=== PATIENT | female | born 1945 | race African-American/Black ===

== ENCOUNTER → 2018-04-24 11:38 | Outpatient (CLI) | payer MEDICARE, OTHER, SELFPAY ==
--- NOTE | 2018-04-24 11:41 | BI_ITS ---
MAMMOGRAPHY - BILATERAL SCREENING REASON FOR EXAM: Female, 72 years old. Routine annual screening examination. PERTINENT HISTORY: Aunt with breast cancer. TECHNIQUE: Digital bilateral breast johnathan (3D mammographic acquisition) in the CC and MLO projections. 2-D mediolateral oblique (MLO) and craniocaudad (CC) views of both breasts were obtained. CAD: Full Field Digital Mammography with Computer Added Detection was performed. COMPARISON: Comparison is made with prior study dated February 22, 2017. FINDINGS: Breast Composition: The breasts are heterogeneously dense, which may obscure small masses. There are no dominant masses or suspicious calcifications. No other significant abnormalities are identified. There has been no significant change since the prior study. BI/SCREENING MAMM (CAD), BILAT IMPRESSION: Stable bilateral screening mammogram. Yearly follow-up mammogram recommended. (A) ASSESSMENT CATEGORY: BIRADS Category 1: Negative. A letter regarding these results will be sent to the patient by the facility within 30 days. Approximately 10% of breast cancers are not detected by mammography. A normal mammogram should not delay biopsy of a clinically suspicious abnormality. [id number] Electronically Signed: Emory Sheppard MD at 11:19 EDT Tel [phone], Service support ,
== END ==
PROVIDERS: Family Provider Nurse Practitioner; PCP Nurse Practitioner; Visit Provider Nurse Practitioner
DX: Z12.31 Encounter for screening mammogram for malignant neoplasm of breast (principal)
CPT/HCPCS: 77063; 77067

== ENCOUNTER → 2018-07-10 13:57 | Outpatient (CLI) | payer MEDICARE, OTHER, SELFPAY ==
[2018-06-29 08:29] VITALS: BMI 27.3
== END ==
PROVIDERS: Family Provider Nurse Practitioner; PCP Nurse Practitioner; Referring Provider Nurse Practitioner; Visit Provider Nurse Practitioner
DX: R00.1 Bradycardia, unspecified (principal)
CPT/HCPCS: 93225; 93226

== ENCOUNTER → 2018-09-05 06:58 | Outpatient (CLI) | payer MEDICARE, OTHER, SELFPAY ==
[2018-08-07 14:42] VITALS: BMI 27.3
--- NOTE | 2018-09-05 07:01 | ECHOD_ITS ---
Reason For Study: CP Procedure This was a 2D Doppler, Color Flow transthoracic echocardiogram. Exam performed in department. Left Ventricle Normal LV size. Mid cavitary false tendon noted. Left ventricular systolic function is normal. The estimated ejection fraction is 60 %. No evidence for diastolic dysfunction. No regional wall motion abnormalities noted. Right Ventricle Normal RV size. Normal systolic function. Atria The left atrium is mildly enlarged. Normal right atrium. Hypermobile atrial septum. Positive agitated saline contrast study for right to left interatrial shunt compatible with a PFO versus ASD. Mitral Valve There is no mitral annular calcification. Normal mitral valve. Trivial mitral valve insufficiency. Tricuspid Valve Normal tricuspid valve. Mild tricuspid valve insufficiency. Right ventricular systolic pressure estimated to be 21 mmHg. Aortic Valve Trisinus/trileaflet aortic valve. Normal aortic valve. Pulmonic Valve The pulmonic valve is not well visualized. Trivial pulmonic valve insufficiency. Great Vessels Normal sized aortic root. Pericardium/Pleural No pericardial effusion. Medication Performed a rapid injection of agitated mix of 9 cc saline and 1cc air to assess for atrial septal defect. MMode/2D Measurements & Calculations LVIDd: 4.4 cm IVSd: 1.3 cm Ao root diam: 3.3 cm LVIDs: 2.5 cm LVPWd: 1.1 cm LA dimension: 3.3 cm FS: 42.5 % LAV(MOD-bp): 65.4 ml LA A4 area: 22.2 cm2 LAV(MOD-bp) Indexed: 33.4 ml/m2 LAV(MOD-sp2): 52.0 ml LAV(MOD-sp4): 66.8 ml Time Measurements MV dec time: 0.34 sec Doppler Measurements & Calculations MV E max diogo: 59.9 cm/sec Lat Peak E' Diogo: 6.7 cm/sec Med Peak E' Diogo: 6.6 cm/sec MV A max diogo: 93.8 cm/sec E/E' lat: 8.9 E/E' med: 9.1 MV E/A: 0.64 MV V2 max: 123.3 cm/sec MV P1/2t max diogo: 65.5 cm/sec Ao V2 max: 113.1 cm/sec MV max P.1 mmHg MV P1/2t: 136.3 msec Ao max P.1 mmHg MV V2 mean: 50.5 cm/sec MV dec slope: 140.7 cm/sec2 MV mean P.2 mmHg MV V2 VTI: 31.9 cm MVA(P1/2t): 1.6 cm2 LV V1 max: 112.4 cm/sec PA V2 max: 89.6 cm/sec TR max diogo: 211.6 cm/sec LV V1 max P.1 mmHg TR max P.9 mmHg Interpretation Summary Left ventricular systolic function is normal. The estimated ejection fraction is 60 %. Mid cavitary false tendon noted. The left atrium is mildly enlarged. Trivial mitral valve insufficiency. Mild tricuspid valve insufficiency. Trivial pulmonic valve insufficiency. Right ventricular systolic pressure estimated to be 21 mmHg. No evidence for diastolic dysfunction. Hypermobile atrial septum. Positive agitated saline contrast study for right to left interatrial shunt compatible with a PFO versus ASD. Ordering Physician: Emanuel Ruffin Referring Physician: Emanuel Ruffin Performed By: Viral Orellana RCS
--- NOTE | 2018-09-05 19:05 | STRESSREP_ITS ---
Stress Test Report Date: 09-05-2018 Procedure: Exercise tolerance test/imaging study Indications: Chest pain; shortness of breath/dyspnea Consent: Per the patient Procedure: The patient exercised on a Jameson protocol for 9 minutes completing Stage III achieving a peak heart rate of 146 bpm (99 % predicted maximal heart rate) with a peak blood pressure 170/64 mmHg and a peak MET capacity of 10 METs. The baseline ECG demonstrated Sinus bradycardia. The peak exercise ECG demonstrated no obvious ECG changes . There was a rare PVC during exercise . The functional capacity was considered good . There was no complaint of chest discomfort during exercise or recovery. The examination was discontinued secondary to dyspnea . Impression: 1. Technically adequate (percent predicted maximal heart rate greater than 85%) exercise tolerance test 2. Peak exercise ECG with no obvious ECG changes 3. There was a rare PVC during exercise 4. Nuclear images pending Myocardial perfusion imaging study: Technique: The patient was injected with 11 mCi of technetium 99m Cardiolite and subsequently rest SPECT Cardiolite nuclear imaging was obtained in the horizontal long, vertical long, and short axis views. The patient exercised on a Jameson protocol for 9 minutes completing Stage III achieving a peak heart rate of 146 bpm (99 % predicted maximal heart rate) with a peak blood pressure 170/64 mmHg and a peak MET capacity of 10 METs. The patient was injected with 31.9 mCi of technetium 99m Cardiolite and subsequently stress SPECT Cardiolite nuclear imaging was obtained in the horizontal long, vertical long, and short axis views. A gated Cardiolite study at peak stress was obtained. Interpretation: Rest and stress SPECT Cardiolite nuclear imaging status post realignment, normalization, and attenuation correction, demonstrates the appearance of relative uniform tracer uptake and myocardial perfusion appearing within normal limits. There is end systolic thickening and brightening. The gated Cardiolite study demonstrates myocardial thickening and inward wall motion. The reported LVEF is 76 %. Impression: 1. Rest and stress SPECT Cardiolite nuclear imaging demonstrate relative uniform tracer uptake and myocardial perfusion appearing within normal limits. 2. The gated Cardiolite study reports an LVEF of 76 %. This note was generated with [email or web address] software. It may contain incorrect words, spelling, and punctuation that were not noted in checking the note before signing.
== END ==
PROVIDERS: Family Provider Nurse Practitioner; PCP Nurse Practitioner; Referring Provider Internal Medicine Cardiovascular Disease; Visit Provider Internal Medicine Cardiovascular Disease
DX: Q21.1 Atrial septal defect (principal); R07.9 Chest pain, unspecified; R06.02 Shortness of breath; R00.1 Bradycardia, unspecified; I10 Essential (primary) hypertension
CPT/HCPCS: 78452; 93017; 93306; A9500; A4216

== ENCOUNTER → 2018-09-12 12:22 | Outpatient (CLI) | payer MEDICARE, OTHER, SELFPAY ==
[2018-08-07 14:42] VITALS: BMI 27.3
[2018-09-12 12:34] LABS: Absolute Lymphocyte Count 0.77 X10^3/ul (0.83-4.51); Absolute Neutrophil Count 1.5 X10^3/uL (2.0-7.7); Basophil# 0.01 X10^3/uL; Basophil% 0.4 % (0-1); Eosinophil# 0.01 X10^3/uL; Eosinophils% 0.4 % (0-5); Hematocrit 39.3 % (37-47); Lymphocyte # 0.77 X10^3/ul (4.0); Lymphocyte % 28.6 % (19-41); Mean Corp Hgb Conc 33.1 g/gl (32-36); Mean Corpuscular Volume 90.8 fL (81-99); Mean Platelet Vol. 11.6 fl (6.2-12.0); Monocyte% 14.9 % (0-10); Neutrophil % 55.7 % (47-70); Platelet Count 131 K/mm3 (150-450); RBC Distribution Width CV 12.5 % (11.6-14.6); RBC Distribution Width SD 41.4 fl (35.1-43.9); Red Blood Count 4.33 M/mm3 (4.2-5.4); White Blood Count 2.7 K/mm3 (4.4-11.0)
[2018-09-12 12:37] LABS: POSITIVE COUNT NO; POSITIVE DIFFERENTIAL NO; POSITIVE MORPHOLOGY NO
[2018-09-12 12:51] LABS: ALB/GLOB Ratio 1.1 RATIO (0.9-2.4); AST(SGOT) 25 U/L (15-37); Alanine Aminotransfer ALT/SGPT 23 U/L (13-56); Albumin, Serum 3.9 g/dL (3.2-5.0); Alkaline Phosphatase 83 U/L (45-117); Anion Gap 7 (5-15); BUN 20 mg/dL (7-18); BUN/Creat Ratio 18.9 RATIO (10-20); Calcium,Total 8.7 mg/dL (8.5-10.1); Chloride 104 mmol/L (98-107); Creatinine, Serum 1.06 mg/dL (0.55-1.02); EST Glomerular Filtration Rate 54 mL/min (>60); Est Glom Filt Rate - Afr Amer 65 mL/min (>60); Globulin 3.7 g/dL (2.2-4.2); Glucose 88 mg/dL (74-106); Potassium 4.2 mmol/L (3.5-5.1); Protein, Total 7.6 g/dL (6.4-8.2); Sodium Level 137 mmol/L (136-145)
== END ==
PROVIDERS: Family Provider Nurse Practitioner; PCP Nurse Practitioner; Referring Provider Nurse Practitioner; Visit Provider Nurse Practitioner
DX: R55 Syncope and collapse (principal)
CPT/HCPCS: 80053; 85025

== ENCOUNTER → 2019-04-30 10:25 | Outpatient (CLI) | payer MEDICARE, OTHER, SELFPAY ==
[2019-02-04 13:08] VITALS: BMI 27.2
--- NOTE | 2019-04-30 10:29 | BI_ITS ---
MAMMOGRAPHY - BILATERAL SCREENING REASON FOR EXAM: Female, 73 years old. Routine annual screening examination. PERTINENT HISTORY: Aunt with breast cancer. TECHNIQUE: Digital bilateral breast mich (3D mammographic acquisition) in the CC and MLO projections. 2-D mediolateral oblique (MLO) and craniocaudad (CC) views of both breasts were obtained. CAD: Full Field Digital Mammography with Computer Added Detection was performed. COMPARISON: Comparison is made with prior examination dated April 24, 2018 and February 22, 2017. FINDINGS: Breast Composition: The breasts are heterogeneously dense, which may obscure small masses. There are no dominant masses or suspicious calcifications. Stable benign-appearing bilateral axillary lymph nodes. No other significant abnormalities are identified. There has been no significant change since the prior study. BI/SCREEN MAMM (CAD) W/MICH BILAT IMPRESSION: Stable bilateral screening mammogram. Yearly follow-up mammogram recommended. (A) ASSESSMENT CATEGORY: BIRADS Category 2: Benign. A letter regarding these results will be sent to the patient by the facility within 30 days. Approximately 10% of breast cancers are not detected by mammography. A normal mammogram should not delay biopsy of a clinically suspicious abnormality. [id number] Electronically Signed: Emory Sheppard, at 12:39 EDT , Service support ,
== END ==
PROVIDERS: Family Provider Nurse Practitioner; PCP Nurse Practitioner; Referring Provider Nurse Practitioner; Visit Provider Nurse Practitioner
DX: Z12.31 Encounter for screening mammogram for malignant neoplasm of breast (principal)
CPT/HCPCS: 77063; 77067

== ENCOUNTER → 2019-06-08 15:53 | Outpatient (CLI) | payer MEDICARE, OTHER, SELFPAY ==
[2019-06-06 09:22] VITALS: BMI 27.2
--- NOTE | 2019-06-08 15:56 | RAD_ITS ---
STUDY: X-RAY CHEST REASON FOR EXAM: Female, 73 years old. TECHNIQUE: 3 views COMPARISON: None. FINDINGS: The lungs are clear and expanded. There is no demonstrated pleural abnormality. Normal size heart. Normal mediastinum and anika. Normal visualized pulmonary arteries. Normal visualized aortic arch and descending thoracic aorta. Hypertrophic degenerative changes are seen in the dorsal spine.. Normal visualized ribs, clavicles, and shoulders. There is no demonstrated abnormality of the visualized soft tissue structures of the upper abdomen. RAD/Chest PA and Lateral IMPRESSION: No active intrathoracic disease noted Electronically Signed: Tasha Ferreira, at 16:17 EST Tel , Service support ,
== END ==
PROVIDERS: Family Provider Nurse Practitioner; PCP Nurse Practitioner; Referring Provider Nurse Practitioner; Visit Provider Nurse Practitioner
DX: J45.909 Unspecified asthma, uncomplicated (principal)
CPT/HCPCS: 71046

== ENCOUNTER → 2019-08-18 14:37 | Outpatient (CLI) | payer MEDICARE, OTHER, SELFPAY ==
[2019-06-06 09:22] VITALS: BMI 27.2
--- NOTE | 2019-08-18 14:47 | RAD_ITS ---
STUDY: X-RAY - ABDOMEN/PELVIS REASON FOR EXAM: Female, 73 years old. EPIGASTRIC PAIN TECHNIQUE: Two AP supine views of the abdomen and pelvis. COMPARISON: June 08, 2019 FINDINGS: Lung bases are mostly out of the [id number]. Is partially visualized on the prior study there are gas-filled loops of bowel in the left upper quadrant which may represent gaseous splenic flexure. There is moderate stool within the colon. There is no demonstrated free abdominal air. The visualized liver, spleen and kidneys are grossly normal in size and morphology. The calcific densities in the pelvis suggesting calcified fibroids. There is a sclerotic appearance of the symphysis pubis. There is degenerative change of the SI joints. There is left greater than right degenerative change of the hip joints. RAD/Abdomen Single View IMPRESSION: Nonspecific gassy appearance of the splenic flexure mild constipation. Calcified fibroids in the uterus suspected. Degenerative change in the thoracolumbar spine and both hip joints and symphysis pubis. Electronically Signed: Nancy Méndez MD at 16:05 EST Tel , Service support ,
== END ==
PROVIDERS: PCP Nurse Practitioner; Referring Provider Nurse Practitioner; Visit Provider Nurse Practitioner
DX: R10.13 Epigastric pain (principal)
CPT/HCPCS: 74018

== ENCOUNTER → 2020-05-11 14:44 | Outpatient (CLI) | payer MEDICARE, OTHER, SELFPAY ==
[2019-06-06 09:22] VITALS: BMI 27.2
--- NOTE | 2020-05-11 14:47 | BI_ITS ---
MAMMOGRAPHY - BILATERAL SCREENING REASON FOR EXAM: Female, 74 years old. Routine annual screening examination. PERTINENT HISTORY: Aunt with breast cancer. TECHNIQUE: Digital bilateral breast mich (3D mammographic acquisition) in the CC and MLO projections. 2-D mediolateral oblique (MLO) and craniocaudad (CC) views of both breasts were obtained. CAD: Full Field Digital Mammography with Computer Added Detection was performed. COMPARISON: Comparison is made with prior study dated 04/30/2019 and 04/24/2018. FINDINGS: Breast Composition: The breasts are heterogeneously dense, which may obscure small masses. There are no dominant masses or suspicious calcifications. No other significant abnormalities are identified. There has been no significant change since the prior study. BI/SCREEN MAMM (CAD) W/MICH BILAT IMPRESSION: Stable bilateral screening mammogram. Yearly follow-up mammogram recommended. (A) ASSESSMENT CATEGORY: BIRADS Category 1: Negative. A letter regarding these results will be sent to the patient by the facility within 30 days. Approximately 10% of breast cancers are not detected by mammography. A normal mammogram should not delay biopsy of a clinically suspicious abnormality. [id number] Electronically Signed: Emory Sheppard, at 10:12 EDT , Service support ,
== END ==
PROVIDERS: PCP Nurse Practitioner; Referring Provider Nurse Practitioner; Visit Provider Nurse Practitioner
DX: Z12.31 Encounter for screening mammogram for malignant neoplasm of breast (principal)
CPT/HCPCS: 77063; 77067

== ENCOUNTER 2020-09-22 09:33 | Outpatient (RCR) | payer MEDICARE, OTHER, SELFPAY ==
[2019-06-06 09:22] VITALS: BMI 27.2
[2020-09-22] MEDS: COVID-19 VACC, MRNA(PFIZER)/PF 30 MCG/0.3 ML SYRINGE IM (13:12)
[2020-10-13] MEDS: COVID-19 VACC, MRNA(PFIZER)/PF 30 MCG/0.3 ML SYRINGE IM (12:54)
== END 2020-12-20 23:59 ==
LOC: IMMUN 09:33
PROVIDERS: PCP Nurse Practitioner; Visit Provider Family Medicine
DX: Z23 Encounter for immunization (principal)
CPT/HCPCS: 0001A; 0002A; 91300

== ENCOUNTER → 2021-05-16 12:49 | Outpatient (CLI) | payer MEDICARE, OTHER, SELFPAY ==
--- NOTE | 2021-05-16 12:54 | BI_ITS ---
MAMMOGRAPHY - BILATERAL SCREENING REASON FOR EXAM: Female, 75 years old. Routine annual screening examination. PERTINENT HISTORY: Aunt with breast cancer. TECHNIQUE: Digital bilateral breast mich (3D mammographic acquisition) in the CC and MLO projections. 2-D mediolateral oblique (MLO) and craniocaudad (CC) views of both breasts were obtained. CAD: Full Field Digital Mammography with Computer Added Detection was performed. COMPARISON: Comparison is made with prior examination 05/11/2020 and 04/30/2019. FINDINGS: Breast Composition: The breasts are heterogeneously dense, which may obscure small masses. There are no dominant masses or suspicious calcifications. Stable small benign appearing bilateral axillary lymph nodes. No other significant abnormalities are identified. There has been no significant change since the prior study. BI/SCRN MAMM (CAD)W/MICH BILAT IMPRESSION: Stable bilateral screening mammogram. Yearly follow-up mammogram recommended. (A) ASSESSMENT CATEGORY: BIRADS Category 2: Benign. A letter regarding these results will be sent to the patient by the facility within 30 days. Approximately 10% of breast cancers are not detected by mammography. A normal mammogram should not delay biopsy of a clinically suspicious abnormality. [id number] Electronically Signed: Emory Sheppard MD at 14:15 EDT , Service support ,
--- NOTE | 2021-05-16 13:17 | BD_ITS ---
STUDY: DUAL ENERGY X-RAY ABSORPTIOMETRY / DXA REASON FOR EXAM: Female, 75 years old. [id number]. The patient is postmenopausal. TECHNIQUE: Bone Mineral Density (BMD) measurements of lumbar spine and bilateral hips were obtained. COMPARISON: Comparison is made with prior study dated 05/23/2017. FINDINGS: Lumbar Spine (L1-L4): g/cm2 (1.021) / T-score (-0.9) / Z-score (1.8) Findings are suggestive of normal bone density with a low fracture risk. Left Femur Total: g/cm2 (0.833) / T-score (-1.3) / Z-score (0.0) Left Femoral Neck: g/cm2 (0.740) / T-score (-1.5) / Z-score (0.1) Right Femur Total: g/cm2 (0.801) / T-score (-1.5) / Z-score (-0.2) Right Femoral Neck: g/cm2 (0.763) / T-score (-1.3) / Z-score (0.3) The T-Scores on the most recent prior examination were: Lumbar Spine (L1-L4): There has been worsening of bone density since the previous examination. Left Femur Total: which represents a worsening of 7.5%. Right Femur Total: which represents a worsening of 2.7%. BD/Dexa Bone Density Study IMPRESSION: The patient is considered osteopenic as outlined below according to World Jt Organization (WHO) criteria with a low fracture risk. There has been worsening of bone density since the previous examination. Reference Information: The T-score is the number of standard deviations above or below the standard which is normal for young adults at their peak bone mineral density. The World Health Organization (WHO) interprets the T-scores as follows: Above -1 Normal bone density Between -1 and -2.5 Osteopenia Equal to / or below -2.5 Osteoporosis As a practical clinical guideline, osteopenia may be graded as follows: Mild -1 through -1.5 Moderate -1.6 through -2.0 Severe -2.1 through -2.4 The Z-score is the number of standard deviations above or below age-matched controls. A Z-score of less than -1.5 would be considered abnormal. References: 1. NIH Osteoporosis and Related Bone Diseases www osteo.org 2. International Society for Clinical Densitometry www iscd.org 3. National Osteoporosis Foundation www nof.org Electronically Signed: Emory Sheppard MD at 12:50 EDT , Service support ,
== END ==
PROVIDERS: PCP Nurse Practitioner; Visit Provider Nurse Practitioner
DX: Z12.31 Encounter for screening mammogram for malignant neoplasm of breast (principal); Z78.0 Asymptomatic menopausal state
CPT/HCPCS: 77063; 77067; 77080

== ENCOUNTER → 2022-05-17 | Outpatient (CLI) | payer MEDICARE, OTHER, SELFPAY ==
--- NOTE | 2022-05-17 09:42 | BI_ITS ---
MAMMOGRAPHY - BILATERAL SCREENING REASON FOR EXAM: Female, 76 years old. Routine annual screening examination. PERTINENT HISTORY: Aunt with breast cancer. History of remote right breast aspirations. TECHNIQUE: Digital bilateral breast mich (3D mammographic acquisition) in the CC and MLO projections. 2-D mediolateral oblique (MLO) and craniocaudad (CC) views of both breasts were obtained. CAD: Full Field Digital Mammography with Computer Added Detection was performed. COMPARISON: Comparison is made with prior examination dated 05/16/2021 and 05/11/2020. FINDINGS: Breast Composition: The breasts are heterogeneously dense, which may obscure small masses. There are no dominant masses or suspicious calcifications. No other significant abnormalities are identified. There has been no significant change since the prior study. BI/SCRN MAMM (CAD)W/MICH BILAT IMPRESSION: Stable bilateral screening mammogram. Yearly follow-up mammogram recommended. (A) ASSESSMENT CATEGORY: BIRADS Category 1: Negative. A letter regarding these results will be sent to the patient by the facility within 30 days. Approximately 10% of breast cancers are not detected by mammography. A normal mammogram should not delay biopsy of a clinically suspicious abnormality. [id number] Electronically Signed: Emory Sheppard MD at 10:16 EDT ,
== END | disposition home or self-care (01) ==
LOC: OPBI 09:41
PROVIDERS: PCP Internal Medicine; Referring Provider Internal Medicine; Visit Provider Internal Medicine
DX: Z12.31 Encounter for screening mammogram for malignant neoplasm of breast (principal)
CPT/HCPCS: 77063; 77067

== ENCOUNTER → 2022-05-22 | Outpatient (CLI) | payer MEDICARE, OTHER, SELFPAY ==
[2022-05-22 12:55] LABS: Anion Gap 6 (5-15); BUN 22 mg/dL (7-18); Calcium,Total 9.4 mg/dL (8.5-10.1); Chloride 104 mmol/L (98-107); EST Glomerular Filtration Rate 57 mL/min (>60); Est Glom Filt Rate - Afr Amer 69 mL/min (>60); Glucose 94 mg/dL (74-106); Potassium 3.8 mmol/L (3.5-5.1); Sodium Level 139 mmol/L (136-145)
== END | disposition home or self-care (01) ==
LOC: BIMLAB 08:11
PROVIDERS: PCP Internal Medicine; Visit Provider Internal Medicine
DX: I10 Essential (primary) hypertension (principal)
CPT/HCPCS: 36415; 80048

== ENCOUNTER → 2022-11-21 | Outpatient (CLI) | payer MEDICARE, OTHER, SELFPAY ==
[2022-11-21 12:20] LABS: Absolute Lymphocyte Count 1.35 X10^3/uL (0.83-4.51); Absolute Neutrophil Count 1.7 X10^3/uL (2.0-7.7); Basophil# 0.05 X10^3/uL; Basophil% 1.3 % (0-1); Eosinophil# 0.37 X10^3/uL; Eosinophils% 9.9 % (0-5); Hematocrit 36.2 % (37-47); Hemoglobin 11.8 g/dL (12.0-15.0); Lymphocyte # 1.35 X10^3/ul (0.83-4.51); Lymphocyte % 36.2 % (19-41); Mean Corp Hgb Conc 32.6 g/dL (32-36); Mean Corpuscular Hgb 30.3 pg (27.0-32.0); Mean Corpuscular Volume 92.8 fL (81-99); Mean Platelet Vol. 10.8 fl (6.2-12.0); Monocyte# 0.29 X10^3/uL; Monocyte% 7.8 % (0-10); NRBC Flagged by Analyzer 0 % (0-5); Neutrophil # 1.66 X10^3/uL (2.7-7.7); Neutrophil % 44.5 % (47-70); Platelet Count 212 K/mm3 (150-450); RBC Distribution Width CV 12.8 % (11.6-14.6); RBC Distribution Width SD 43.4 fl (35.1-43.9); White Blood Count 3.7 K/mm3 (4.4-11.0)
[2022-11-21 12:50] LABS: AST(SGOT) 22 U/L (15-37); Alanine Aminotransfer ALT/SGPT 26 U/L (13-56); Albumin, Serum 3.8 g/dL (3.2-5.0); Alkaline Phosphatase 83 U/L (45-117); Anion Gap 4 (5-15); BUN 24 mg/dL (7-18); BUN/Creat Ratio 24.7 RATIO (10-20); Calcium,Total 9.6 mg/dL (8.5-10.1); Chloride 108 mmol/L (98-107); Creatinine, Serum 0.97 mg/dL (0.55-1.02); EST Glomerular Filtration Rate 59 mL/min (>60); Est Glom Filt Rate - Afr Amer 72 mL/min (>60); Globulin 3.9 g/dL (2.2-4.2); Glucose 96 mg/dL (74-106); Potassium 4.3 mmol/L (3.5-5.1); Protein, Total 7.7 g/dL (6.4-8.2); Sodium Level 141 mmol/L (136-145)
== END | disposition home or self-care (01) ==
LOC: BIMLAB 08:40
PROVIDERS: PCP Internal Medicine; Referring Provider Internal Medicine; Visit Provider Internal Medicine
DX: I10 Essential (primary) hypertension (principal)
CPT/HCPCS: 36415; 80053; 85025

== ENCOUNTER → 2023-05-20 | Outpatient (CLI) | payer MEDICARE, OTHER, SELFPAY ==
--- NOTE | 2023-05-20 12:09 | BI_ITS ---
MAMMOGRAPHY - BILATERAL SCREENING REASON FOR EXAM: Female, 77 years old. Routine annual screening examination. PERTINENT HISTORY: Aunt with breast cancer. TECHNIQUE: Digital bilateral breast mich (3D mammographic acquisition) in the CC and MLO projections. 2-D mediolateral oblique (MLO) and craniocaudad (CC) views of both breasts were obtained. CAD: Full Field Digital Mammography with Computer Added Detection was performed. COMPARISON: Comparison is made with prior study May 17, 2022 and May 16, 2021. FINDINGS: Breast Composition: The breasts are heterogeneously dense, which may obscure small masses. There are no dominant masses or suspicious calcifications. Stable small benign-appearing bilateral axillary lymph nodes. No other significant abnormalities are identified. There has been no significant change since the prior study. BI/SCRN MAMM (CAD)W/MICH BILAT IMPRESSION: Stable bilateral screening mammogram. Yearly follow-up mammogram recommended. (A) ASSESSMENT CATEGORY: BIRADS Category 2: Benign. A letter regarding these results will be sent to the patient by the facility within 30 days. Approximately 10% of breast cancers are not detected by mammography. A normal mammogram should not delay biopsy of a clinically suspicious abnormality. [id number] Electronically Signed: Emory Sheppard MD at 12:56 EST ,
== END | disposition home or self-care (01) ==
LOC: OPBI 12:08
PROVIDERS: PCP Internal Medicine; Referring Provider Internal Medicine; Visit Provider Internal Medicine
DX: Z12.31 Encounter for screening mammogram for malignant neoplasm of breast (principal)
CPT/HCPCS: 77063; 77067

== ENCOUNTER → 2023-08-28 | Outpatient (CLI) | payer MEDICARE, OTHER, SELFPAY ==
[2023-08-28 15:30] LABS: Absolute Lymphocyte Count 1.89 X10^3/uL (0.83-4.51); Absolute Neutrophil Count 2.1 X10^3/uL (2.0-7.7); Basophil# 0.03 X10^3/uL; Basophil% 0.6 % (0-1); Eosinophil# 0.41 X10^3/uL; Eosinophils% 8.8 % (0-5); Hematocrit 36.1 % (37-47); Hemoglobin 11.8 g/dL (12.0-15.0); Lymphocyte # 1.89 X10^3/ul (0.83-4.51); Lymphocyte % 40.6 % (19-41); Mean Corp Hgb Conc 32.7 g/dL (32-36); Mean Corpuscular Hgb 30.1 pg (27.0-32.0); Mean Corpuscular Volume 92.1 fL (81-99); Mean Platelet Vol. 10.4 fl (6.2-12.0); Monocyte# 0.27 X10^3/uL; Monocyte% 5.8 % (0-10); NRBC Flagged by Analyzer 0 % (0-5); Neutrophil # 2.05 X10^3/uL (2.7-7.7); Platelet Count 224 K/mm3 (150-450); RBC Distribution Width CV 12.5 % (11.6-14.6); RBC Distribution Width SD 42.1 fl (35.1-43.9); Red Blood Count 3.92 M/mm3 (4.2-5.4); White Blood Count 4.7 K/mm3 (4.4-11.0)
[2023-08-28 16:32] LABS: Anion Gap 4 (5-15); BUN 22 mg/dL (7-18); BUN/Creat Ratio 21.6 RATIO (10-20); Calcium,Total 9.4 mg/dL (8.5-10.1); Chloride 106 mmol/L (98-107); Cholesterol 202 mg/dL (200); Creatinine, Serum 1.02 mg/dL (0.55-1.02); EST Glomerular Filtration Rate 56 mL/min (>60); Est Glom Filt Rate - Afr Amer 67 mL/min (>60); Glucose 85 mg/dL (74-106); High Density Lipoprotein 93 mg/dL; Potassium 3.8 mmol/L (3.5-5.1); Sodium Level 138 mmol/L (136-145); Triglycerides 52 mg/dL; Very Low Density Lipoprotein 10 mg/dL (5-40)
== END | disposition home or self-care (01) ==
LOC: BIMLAB 14:25
PROVIDERS: PCP Internal Medicine; Referring Provider Internal Medicine; Visit Provider Internal Medicine
DX: I10 Essential (primary) hypertension (principal); K21.9 Gastro-esophageal reflux disease without esophagitis
CPT/HCPCS: 36415; 80048; 80061; 85025

== ENCOUNTER 2024-01-22 12:30 | Outpatient (RCR) | payer MEDICARE, OTHER, SELFPAY ==
--- NOTE | 2023-12-23 16:22 | HP.PTEVAL_ITS ---
Patient's Visit Information Visit Information Visit Information: DAVID HUBBARD is a 78 year old F referred to Physical Therapy by Dr. Avila Bynum MD with a diagnosis of L buttock pain, SI Joint pain, myalgia. Date of Evaluation: 12/23/23 Physical Therapist: HAILEY Bassett Visit Plan Frequency: 2x /Week Duration: 2 Months Plan: 2X/ week for 8 weeks for stretching of the L piriformis, foam rolling stretching, strengthening with HEP HEP: chair piriformis stretch Subjective Subjective: She was able to walk back here today without getting that pull. She gets a pull deep into her L buttock. She has been doing some stretches and they do help. She has a lot of pain at night when she lays on it. She put heat on it today and it did help relax that pain. It has been going on for awhile and now getting worse. She gets some tingling on the R side and bone and bone on the R knee. 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 It hurts more with walking and does not think she can take a step. Sometimes it helps to get off of it. She was on prednisone for 5 days and meloxicam and it knocked the edge off but did not take it away. She did have x-rays and showed arthritis but not sure if it was of her hip or her back. She goes down one step at a time and hurts sometimes. Pain back pain: Pain Intensity (Out of 10): 0 L hip pain: Pain Intensity (Out of 10): 0 Objective Objective: Gait: walks with decrease stride length and slight trunk flexion LE MMT: R hip flex 4-/5 and L 4-/5 R knee ext 4/5 B R knee flex 4/5 B Pt has tight L piriformis and pain with stretching Pt has tight L hip flexor Pt has increase anterior hip pain with tying to lay flat with her L leg Trunk AROM: flex 75, ext 25, SB B 75, ROT B 75 Balance/Special Test Scores Lower Extremity Functional Score: 48 Goals Goal 1:: I HEP Goal 2:: No pain with stretching the L piriformis Goal Time Frame: 4-6 Weeks Goal 3:: No more grabbing pain with ADL's Goal Time Frame: 4-6 Weeks Rehabilitation Potential Rehabilitation Potential: Good Anticipated Interventions Patient/Client Instruction: Educate patient on: Condition and Plan of Care For the Purpose of:: To decrease pain, To increase ROM, To improve nutrient delivery to tissue, To improve muscle performance and motor function, To improve ability to perform ADL's, To improve ability of physical actions for home/community/work/leisure, To improve gait and locomotor functions, To improve health of tissue, To decrease soft tissue restriction, To increase flexibility/ROM and To improve safety with gait Therapeutic Exercise to Include: Strength training, Postural training, Flexibil ty training, Gait and locomotor training, Passive ROM, Active ROM and Dynamic Lumbar Stabilization For the Purpose of:: To decrease pain, To increase ROM, To improve nutrient d elivery to tissue, To improve muscle performance and motor function, To improve ability to perform ADL's, To increase tolerance to activity/condition/position, To improve performance and independence with ADL's, To decrease level of supervision to perform tasks, To improve ability of physical actions for home/community/work/leisure, To improve gait and locomotor functions, To improve health of tissue, To decrease soft tissue restriction, To increase flexibility/ROM and To improve safety with gait Manual Therapy Techniques to Include: Mobilization, Passive ROM and Soft tissue mobilization For the Purpose of:: To decrease pain, To increase ROM, To improve nutrient delivery to tissue, To improve muscle performance and motor function, To improve ability to perform ADL's, To increase tolerance to activity/condition/position, To improve performance and independence with ADL's, To decrease level of supervision to perform tasks, To improve ability of physical actions for home/community/work/leisure, To improve gait and locomotor functions, To improve health of tissue, To decrease soft tissue restriction and To increase flexibility/ROM Text: Thank you for the opportunity to evaluate your patient. For Medicare and Medicare HMO plans, please review the plan of care and approve it. It will need to be FAXED BACK to us at [phone] for Medicare purposes. For Medicare only, by signing this I certify the plan of care. Please let me know if there are questions or concerns regarding this plan of care. Physician Signature: Date:
--- NOTE | 2024-01-22 12:59 | HP.PTDCSUM ---
Discharge Summary D/C summary: It has been my pleasure to treat DAVID HUBBARD referred by Dr. Avila Bynum MD, with the diagnosis of L buttock pain, SI Joint pain, myalgia for a total of 5 visit(s). Discharge Date: 01/22/24 Please see the following information for a summary of their discharge status. Subjective Subjective: She had COVID again and went into the hospital and is wearing a monitor. She is still SOB. She is still tired. Stretching really helps. It does not ache like it used too. Pain back pain: Pain Intensity (Out of 10): 3 L hip pain: Pain Intensity (Out of 10): 3 Overall Improvement % Improvement: 90 Objective Objective/Function: Pt met all goals and has full understanding of HEP (see above) Goals Goal 1:: I HEP Goal Progress: Goal Met Goal 2:: No pain with stretching the L piriformis Goal Progress: Goal Met Goal 3:: No more grabbing pain with ADL's Goal Progress: Goal Met Plan Plan: DC PT to HEP D/C Information Discharge Comments: DC PT to HEP d/c sentence: If there are questions or concerns regarding this patient's physical therapy, please feel free to call me at [phone]. Thank you for the referral of this patient. Sincerely, Rupa Ibarra, HAILEY Balance/Gait/Functional tests Balance/Special Test Scores Lower Extremity Functional Score: 58 Improvement % Improvement: 90
== END 2024-01-22 19:00 | disposition home or self-care (01) ==
LOC: PT 12:30
PROVIDERS: PCP Internal Medicine; Visit Provider Internal Medicine
DX: M79.18 Myalgia, other site (principal); M53.3 Sacrococcygeal disorders, not elsewhere classified
CPT/HCPCS: 97110; 97161

== ENCOUNTER → 2024-02-05 | Outpatient (CLI) | payer MEDICARE, OTHER, SELFPAY ==
--- NOTE | 2024-02-05 13:49 | ECHOD_ITS ---
Reason For Study: TIA/CVA Procedure This was a 2D Doppler, Color Flow transthoracic echocardiogram. Exam performed in department. Left Ventricle Normal LV size. Mid cavitary false tendon noted. Left ventricular systolic function is normal. The left ventricular ejection fraction is 65 %. Stage 1 diastolic dysfunction. No regional wall motion abnormalities noted. Right Ventricle Normal RV size. Normal systolic function. Atria Normal left atrium. Normal right atrium. Mitral Valve Normal mitral valve. Tricuspid Valve Normal tricuspid valve. Mild (1+) tricuspid valve insufficiency. Pulmonary artery systolic pressure is 30 mmHg. Aortic Valve Trisinus/trileaflet aortic valve. Pulmonic Valve Normal pulmonic valve. Great Vessels Normal aortic root. The pulmonary artery is normal size. Normal inferior vena cava. Pericardium/Pleural No pericardial effusion. MMode/2D Measurements & Calculations LVIDd: 4.4 cm IVSd: 1.1 cm LVOT diam: 2.1 cm LVIDs: 2.4 cm LVPWd: 1.1 cm LVOT area: 3.4 cm2 FS: 46.3 % Ao root diam: 2.9 cm LAV(MOD-bp): 54.9 ml LVAd ap4: 23.3 cm2 LAV(MOD-bp) Indexed: 28.0 ml/m2 LVLd ap4: 7.0 cm LAV(MOD-sp2): 41.7 ml EDV(MOD-sp4): 63.9 ml LAV(MOD-sp4): 56.9 ml EDV(sp4-el): 65.9 ml LVAs ap4: 10.9 cm2 LVLs ap4: 5.2 cm ESV(MOD-sp4): 19.7 ml ESV(sp4-el): 19.2 ml EF(MOD-sp4): 69.2 % EF(sp4-el): 70.8 % SV(MOD-sp4): 44.2 ml SV(sp4-el): 46.7 ml LA A4 area: 20.0 cm2 RA A4 area: 14.5 cm2 TAPSE: 2.2 cm Time Measurements MV dec time: 0.21 sec Doppler Measurements & Calculations MV E max diogo: 89.4 cm/sec Lat Peak E' Diogo: 11.0 cm/sec Med Peak E' Diogo: 9.6 cm/sec MV A max diogo: 115.9 cm/sec E/E' lat: 8.1 E/E' med: 9.3 MV E/A: 0.77 Ao V2 max: 149.2 cm/sec LV V1 max: 136.4 cm/sec MV dec slope: 425.4 cm/sec2 Ao max P.9 mmHg LV V1 max P.4 mmHg Ao V2 mean: 102.2 cm/sec LV V1 mean P.0 mmHg Ao mean P.7 mmHg LV V1 mean: 93.2 cm/sec Ao V2 VTI: 37.7 cm LV V1 VTI: 34.4 cm AV (velocity ratio): 0.91 JULOI(I,D): 3.1 cm2 JULIO(V,D): 3.1 cm2 SV(LVOT): 117.5 ml PA V2 max: 91.9 cm/sec PI end-d diogo: 76.6 cm/sec PA max PG (full): 0.57 mmHg TR max diogo: 260.0 cm/sec TR max P.0 mmHg ECHO/Echo Complete Interpretation Summary Normal LV size. Left ventricular systolic function is normal. The left ventricular ejection fraction is 65 %. Mid cavitary false tendon noted. Stage 1 diastolic dysfunction. Ordering Physician: Avila Bynum Referring Physician: Avila Bynum Performed By: Billie Crump RVT, RDCS and Student
== END | disposition home or self-care (01) ==
LOC: CVS 13:41
PROVIDERS: PCP Internal Medicine; Referring Provider Internal Medicine; Visit Provider Internal Medicine
DX: G45.9 Transient cerebral ischemic attack, unspecified (principal)
CPT/HCPCS: 93306

== ENCOUNTER → 2024-03-04 | Outpatient (CLI) | payer MEDICARE, OTHER, SELFPAY ==
[2024-03-04 12:20] LABS: Absolute Lymphocyte Count 1.39 X10^3/uL (0.83-4.51); Absolute Neutrophil Count 2.1 X10^3/uL (2.0-7.7); Basophil# 0.06 X10^3/uL; Basophil% 1.4 % (0-1); Eosinophil# 0.56 X10^3/uL; Eosinophils% 12.7 % (0-5); Hematocrit 36.2 % (37-47); Hemoglobin 11.8 g/dL (12.0-15.0); Lymphocyte # 1.39 X10^3/ul (0.83-4.51); Lymphocyte % 31.4 % (19-41); Mean Corp Hgb Conc 32.6 g/dL (32-36); Mean Corpuscular Hgb 29.8 pg (27.0-32.0); Mean Corpuscular Volume 91.4 fL (81-99); Mean Platelet Vol. 10.8 fl (6.2-12.0); Monocyte% 6.8 % (0-10); NRBC Flagged by Analyzer 0 % (0-5); Neutrophil % 47.5 % (47-70); Platelet Count 233 K/mm3 (150-450); RBC Distribution Width CV 12.7 % (11.6-14.6); RBC Distribution Width SD 42.5 fl (35.1-43.9); Red Blood Count 3.96 M/mm3 (4.2-5.4); White Blood Count 4.4 K/mm3 (4.4-11.0)
[2024-03-04 12:44] LABS: ALB/GLOB Ratio 0.9 RATIO (0.9-2.4); AST(SGOT) 63 U/L (15-37); Alanine Aminotransfer ALT/SGPT 115 U/L (13-56); Albumin, Serum 3.7 g/dL (3.2-5.0); Alkaline Phosphatase 239 U/L (45-117); Anion Gap 5 (5-15); BUN 19 mg/dL (7-18); BUN/Creat Ratio 19.9 RATIO (10-20); Calcium,Total 9.4 mg/dL (8.5-10.1); Chloride 106 mmol/L (98-107); Creatinine, Serum 0.96 mg/dL (0.55-1.02); EST Glomerular Filtration Rate 60 mL/min (>60); Est Glom Filt Rate - Afr Amer 73 mL/min (>60); Globulin 3.9 g/dL (2.2-4.2); Glucose 77 mg/dL (74-106); Potassium 4.2 mmol/L (3.5-5.1); Protein, Total 7.6 g/dL (6.4-8.2); Sodium Level 138 mmol/L (136-145)
[2024-03-06 08:12] LABS: GGTP 223 IU/L (0-60)
== END | disposition home or self-care (01) ==
LOC: BIMLAB 10:38
PROVIDERS: PCP Internal Medicine; Referring Provider Internal Medicine; Visit Provider Internal Medicine
DX: I10 Essential (primary) hypertension (principal); R74.8 Abnormal levels of other serum enzymes
CPT/HCPCS: 36415; 80053; 82977; 85025

== ENCOUNTER → 2024-04-13 | Outpatient (CLI) | payer MEDICARE, OTHER, SELFPAY ==
[2024-04-13 13:29] LABS: ALB/GLOB Ratio 1.1 RATIO (0.9-2.4); AST(SGOT) 27 U/L (15-37); Alanine Aminotransfer ALT/SGPT 29 U/L (13-56); Albumin, Serum 3.8 g/dL (3.2-5.0); Alkaline Phosphatase 106 U/L (45-117); Anion Gap 5 (5-15); BUN 18 mg/dL (7-18); BUN/Creat Ratio 15.8 RATIO (10-20); Calcium,Total 9.3 mg/dL (8.5-10.1); Chloride 107 mmol/L (98-107); Creatinine, Serum 1.14 mg/dL (0.55-1.02); EST Glomerular Filtration Rate 49 mL/min (>60); Est Glom Filt Rate - Afr Amer 59 mL/min (>60); Globulin 3.4 g/dL (2.2-4.2); Glucose 72 mg/dL (74-106); Protein, Total 7.2 g/dL (6.4-8.2); Sodium Level 142 mmol/L (136-145)
== END | disposition home or self-care (01) ==
LOC: BIMLAB 10:52
PROVIDERS: PCP Internal Medicine; Referring Provider Internal Medicine; Visit Provider Internal Medicine
DX: R74.8 Abnormal levels of other serum enzymes (principal)
CPT/HCPCS: 36415; 80053

== ENCOUNTER → 2024-06-03 | Outpatient (CLI) | payer MEDICARE, OTHER, SELFPAY ==
--- NOTE | 2024-06-03 12:09 | BI_ITS ---
MAMMOGRAPHY - BILATERAL SCREENING REASON FOR EXAM: Female, 78 years old. Routine annual screening examination. PERTINENT HISTORY: Aunt with breast cancer. TECHNIQUE: Digital bilateral breast mich (3D mammographic acquisition) in the CC and MLO projections. 2-D mediolateral oblique (MLO) and craniocaudad (CC) views of both breasts were obtained. CAD: Full Field Digital Mammography with Computer Added Detection was performed. COMPARISON: Comparison is made with prior study dated May 20, 2023 and May 17, 2022. FINDINGS: Breast Composition: The breasts are heterogeneously dense, which may obscure small masses. There are no dominant masses or suspicious calcifications. No other significant abnormalities are identified. There has been no significant change since the prior study. BI/SCRN MAMM (CAD)W/MICH BILAT IMPRESSION: Stable bilateral screening mammogram. Yearly follow-up mammogram recommended. (A) ASSESSMENT CATEGORY: BIRADS Category 1: Negative. A letter regarding these results will be sent to the patient by the facility within 30 days. Approximately 10% of breast cancers are not detected by mammography. A normal mammogram should not delay biopsy of a clinically suspicious abnormality. [id number] Electronically Signed: Emory Sheppard MD at 13:16 EST ,
== END | disposition home or self-care (01) ==
LOC: OPBI 12:09
PROVIDERS: PCP Internal Medicine; Referring Provider Internal Medicine; Visit Provider Internal Medicine
DX: Z12.31 Encounter for screening mammogram for malignant neoplasm of breast (principal); Z80.3 Family history of malignant neoplasm of breast
CPT/HCPCS: 77063; 77067

== ENCOUNTER → 2024-06-17 | Outpatient (CLI) | payer MEDICARE, OTHER, SELFPAY ==
[2024-06-17 16:52] LABS: AST(SGOT) 20 U/L (15-37); Alanine Aminotransfer ALT/SGPT 25 U/L (13-56); Albumin, Serum 3.9 g/dL (3.2-5.0); Alkaline Phosphatase 78 U/L (45-117); Anion Gap 6 (5-15); BUN 15 mg/dL (7-18); BUN/Creat Ratio 15.8 RATIO (10-20); Calcium,Total 9.6 mg/dL (8.5-10.1); Chloride 104 mmol/L (98-107); Creatinine, Serum 0.95 mg/dL (0.55-1.02); EST Glomerular Filtration Rate 60 mL/min (>60); Est Glom Filt Rate - Afr Amer 73 mL/min (>60); Glucose 97 mg/dL (74-106); Potassium 4.2 mmol/L (3.5-5.1); Protein, Total 7.9 g/dL (6.4-8.2); Sodium Level 140 mmol/L (136-145)
== END | disposition home or self-care (01) ==
LOC: BIMLAB 15:12
PROVIDERS: PCP Internal Medicine; Referring Provider Internal Medicine; Visit Provider Internal Medicine
DX: I10 Essential (primary) hypertension (principal)
CPT/HCPCS: 36415; 80053

== ENCOUNTER → 2024-11-27 | Outpatient (CLI) | payer MEDICARE, OTHER, SELFPAY ==
[2024-11-27 17:08] LABS: Absolute Lymphocyte Count 1.64 X10^3/uL (0.83-4.51); Absolute Neutrophil Count 2.4 X10^3/uL (2.0-7.7); Basophil# 0.04 X10^3/uL; Basophil% 0.9 % (0-1); Eosinophil# 0.23 X10^3/uL; Eosinophils% 5.1 % (0-5); Hematocrit 35.7 % (37-47); Hemoglobin 11.7 g/dL (12.0-15.0); Lymphocyte # 1.64 X10^3/ul (0.83-4.51); Mean Corp Hgb Conc 32.8 g/dL (32-36); Mean Corpuscular Volume 91.5 fL (81-99); Monocyte# 0.24 X10^3/uL; Monocyte% 5.3 % (0-10); NRBC Flagged by Analyzer 0 % (0-5); Neutrophil # 2.39 X10^3/uL (2.7-7.7); Neutrophil % 52.5 % (47-70); Platelet Count 224 K/mm3 (150-450); RBC Distribution Width CV 12.4 % (11.6-14.6); RBC Distribution Width SD 41.5 fl (35.1-43.9); White Blood Count 4.6 K/mm3 (4.4-11.0)
[2024-11-27 17:25] LABS: ALB/GLOB Ratio 1.4 RATIO (0.9-2.4); AST(SGOT) 21 U/L (<=31); Alanine Aminotransfer ALT/SGPT 18 U/L (<=34); Albumin, Serum 4.2 g/dL (3.4-4.8); Alkaline Phosphatase 82 U/L (35-104); Anion Gap 11 (5-15); BUN 18 mg/dL (4-19); BUN/Creat Ratio 16.1 RATIO (10-20); Calcium,Total 9.5 mg/dL (7.6-11.0); Carbon Dioxide 25.1 mmol/L (21.0-32.0); Chloride 104 mmol/L (98-108); Creatinine, Serum 1.14 mg/dL (0.70-1.20); EST Glomerular Filtration Rate 49 (>60); Glucose 93 mg/dL (70-99); Protein, Total 7.2 g/dL (5.9-8.4); Sodium Level 139 mmol/L (133-145)
== END | disposition home or self-care (01) ==
LOC: BIMLAB 15:09
PROVIDERS: PCP Internal Medicine; Referring Provider Internal Medicine; Visit Provider Internal Medicine
DX: K21.9 Gastro-esophageal reflux disease without esophagitis (principal)
CPT/HCPCS: 36415; 80053; 85025

== ENCOUNTER → 2024-11-30 | Outpatient (CLI) | payer MEDICARE, OTHER, SELFPAY ==
[2024-12-02 15:08] LABS: H.Pylori Breath Test Positive (Negative)
== END | disposition home or self-care (01) ==
LOC: LABSPEC 15:57
PROVIDERS: PCP Internal Medicine; Referring Provider Internal Medicine; Visit Provider Internal Medicine
DX: K29.70 Gastritis, unspecified, without bleeding (principal); B96.81 Helicobacter pylori [H. pylori] as the cause of diseases classified elsewhere
CPT/HCPCS: 83013

== ENCOUNTER → 2024-12-18 | Outpatient (CLI) | payer MEDICARE, OTHER, SELFPAY ==
[2024-12-20 13:07] LABS: H. PYLORI STOOL AG Positive (Negative)
== END | disposition home or self-care (01) ==
LOC: LAB 08:13 → LABSPEC 08:14
PROVIDERS: PCP Internal Medicine; Referring Provider Internal Medicine Gastroenterology; Visit Provider Internal Medicine Gastroenterology
DX: A04.8 Other specified bacterial intestinal infections (principal)
CPT/HCPCS: 87338

== ENCOUNTER → 2025-01-08 | Outpatient (CLI) | payer MEDICARE, OTHER, SELFPAY ==
--- OUTSIDE RECORDS SUMMARY | 2025-01-08 06:18 | XMS RPT_ITS | CCD ---
Author Organization [facility] Care Team Providers Care Installation Supervisor Name Role Phone Mihaela Hui Unavailable Alverto Mckeon Unavailable Tyler Johnson Unavailable Vito Chisholm Unavailable [facility], Magi Lopez Unavailable Emanuel Ruffin Unavailable Dex Alegre Unavailable Gloria Payan Unavailable Katalina Thomas Unavailable Unavailable Slarb, Rupa Unavailable Unavailable Unavailable Unavailable Mihaela Hui Unavailable Alverto Mckeon Unavailable Tyler Johnson Unavailable Vito Chisholm Unavailable [facility], Magi Lopez Unavailable Emanuel Ruffin Unavailable Dex Alegre Unavailable Schuyler Gloria Unavailable William Robertson Unavailable Unavailable Slarb, Rupa Unavailable Unavailable Unavailable Unavailable Katalina Thomas Unavailable Unavailable Mihaela Hui Attending Unavailable Mihalea Hui Referring Unavailable Mihaela Hui Consulting Unavailable Melita Cisse Unavailable Unavailable William Robertson Unavailable Unavailable Tammy Toth Unavailable Unavailable Kenn Cain Unavailable William Lara Unavailable Unavailable Mihaela Hui CNP Unavailable Alverto Mckeon MD C Unavailable [phone] Tyler Johnson Unavailable Kenn Cain Unavailable Phan CASH, Vito [facility]i MACEDO Unavailable Laly CASH, Emanuel Lindsay Unavailable Sis CASH, Dex Unavailable Gloria Payan Unavailable Navneet CONICAL MIXER, Tammy Unavailable Unavailable Slarena CONICAL MIXER, Rupa Unavailable Unavailable Marco CONICAL MIXER, William Unavailable Unavailable Katalina Thomas Unavailable Unavailable Unavailable Unavailable Fast DO, Ryann A Unavailable Ciesa, Mihaela Unavailable Gravius BRAKE ADJUSTER, Roxane Unavailable Unavailable Nuha DO, Tabatha Unavailable Fast DO, Ryann A Unavailable Ciesa, Mihaela Unavailable Brenton ADULT NEUROPSYCHOLOGIST, Rica Unavailable Brenton ADULT NEUROPSYCHOLOGIST, Rica Unavailable Ant, Kenn Unavailable Nuha DO, Tabatha Unavailable Dr. Bronson Bynum Primary Care Provider [phone]) Dr. Bronson Bynum Attending Provider [phone] Dr. Bronson Bynum Referring Provider [phone])[address] Bronson Bynum Primary Care Provider [phone] 0) Dr. Bronson Bynum Attending Provider [phone])2 Dr. Bronson Bynum Referring Provider [phone])2 Dr. Bronson Bynum Primary Care Provider 1(33 0) Dr. Bronson Bynum Referring Provider [phone])2 MAGAN London Attending Provider [phone] Dr. Michael Tamayo Attending Provider Dr. Bronson Bynum Attending Provider [phone] CIESA PROFESSIONAL [employer]URSING TUTOR, [facility] Primary Care Physician Todd PT, Sari Unavailable Unavailable SHAYNE CASH, DR GUERRERO Attending Unavailabl e CIESRoss PROFESSIONAL NURSING TUTOR, [facility] Primary Care Unavailable BRONSON BYNUM MD Attending Unavailab le KORINA PROFESSIONAL NURSING TUTOR, [facility] Primary Care Unavailable CIESA PROFESSIONAL NURSING TUTOR, [facility] Primary Care Unavailable ELIZABETH CASH, DR YING Attending Unavailbob BYNUM MD, BRONSON Huizar Primary Care Physician ([phone] FLETCHER CASH, BRONSON Huizar Primary Care Unavailab TYLER Shabazz Attending Unavailable BRONSON BYNUM MD B Primary Care Unavailab Jg CASH, PAT Attending Unavailable Dr. Bronson Bynum MD Primary Care Provider Dr. Bronson Bynum MD Attending Provider [phone] 0) Dr. Bronson Bynum MD Referring Provider 1(33 0) Dr. Tyler Johnson MD Attending Provider Dr. Tyler Johnson MD Referring Provider Oleghe, Efewongbe Attending Unavailable Oleghe, Efewongbe Referring Unavailable Oleghe, Efewongbe Primary Care Unavailable Oleghe, Efewongbe Primary Care Unavailable Michael Tamayo Attending Unavailable Oleghe, Efewongbe Referring Unavailable Oleghe, Efewongbe Primary Care Unavailable Oleghe, Efewongbe Referring Unavailable Oleghe, Efewongbe Attending Unavailable Mary Merrill Attending Unavailable Oleghe, Efewongbe Primary Care Unavailable Oleghe, Efewongbe Referring Unavailable Oleghe, Efewongbe Primary Care Unavailable Oleghe, Efewongbe Referring Unavailable Oleghe, Efewongbe Attending Unavailable Oleghe, Efewongbe Primary Care Unavailable Oleghe, Efewongbe Referring Unavailable Oleghe, Efewongbe Attending Unavailable Oleghe, Efewongbe Primary Care Unavailable Roni, Michael Attending Unavailable Oleghe, Efewongbe Attending Unavailable Oleghe, Efewongbe Referring Unavailable Oleghe, Efewongbe Primary Care Unavailable Oleghe, Efewongbe Primary Care Unavailable Oleghe, Efewongbe Referring Unavailable Oleghe, Efewongbe Attending Unavailable Oleghe, Efewongbe Attending Unavailable Oleghe, Efewongbe Primary Care Unavailable Oleghe, Efewongbe Referring Unavailable Oleghe, Efewongbe Attending Unavailable Oleghe, Efewongbe Primary Care Unavailable Oleghe, Efewongbe Primary Care Unavailable Jabour, Vincent Referring Unavailable Jabour, Vincent Attending Unavailable Oleghe, Efewongbe Attending Unavailable Oleghe, Efewongbe Primary Care Unavailable Oleghe, Efewongbe Referring Unavailable Oleghe, Efewongbe Referring Unavailable Oleghe, Efewongbe Primary Care Unavailable Oleghe, Efewongbe Attending Unavailable Oleghe, Efewongbe Attending Unavailable Oleghe, Efewongbe Referring Unavailable Oleghe, Efewongbe Primary Care Unavailable Oleghe, Efewongbe Primary Care Unavailable Oleghe, Efewongbe Referring Unavailable Oleghe, Efewongbe Attending Unavailable Oleghe, Efewongbe Primary Care Unavailable Oleghe, Efewongbe Referring Unavailable Oleghe, Efewongbe Attending Unavailable Oleghe, Efewongbe Attending Unavailable Oleghe, Efewongbe Primary Care Unavailable Oleghe, Efewongbe Referring Unavailable Allergies Allergy Classification Reported Allergen(s) Allergy Type Date of Onset Reaction(s) Facility (20 sources) Dust; Translations: [Dust] allergy to substance Sneezing, Rhinitis [facility] Work Phone: (20 sources) Tree; Translations: [Trees] allergy to substance Sneezing, Rhinitis [facility] Work Phone: (7 sources) Seasonal Allergies: Uncoded; Translations: [Seasonal Allergies: Uncoded] Allergy to substance 3 nasal drainage [facility] NEGATED: Highlighted row has been ruled out! (1 source) Allergy to drug (finding) 6 [facility]; [facility] Work Phone: NEGATED: Highlighted row has been ruled out! (1 source) Allergy to drug (finding) [facility]; [facility] Work Phone: NEGATED: Highlighted row has been ruled out! (1 source) Allergy to drug (finding) 6 [facility]; [facility] Work Phone: NEGATED: Highlighted row has been ruled out! (1 source) Allergy to drug (finding) 6 [facility]; [facility] Work Phone: NEGATED: Highlighted row has been ruled out! (1 source) Allergy to drug (finding) 6 [facility]; [facility] Work Phone: NEGATED: Highlighted row has been ruled out! (1 source) Allergy to drug (finding) 6 [facility]; [facility] Work Phone: NEGATED: Highlighted row has been ruled out! (1 source) Allergy to drug (finding) [facility]; [facility] Work Phone: NEGATED: Highlighted row has been ruled out! (1 source) Allergy to drug (finding) 6 [facility]; [facility] Work Phone: NEGATED: Highlighted row has been ruled out! (1 source) Allergy to drug (finding) [facility]; [facility] Work Phone: NEGATED: Highlighted row has been ruled out! (1 source) Allergy to drug (finding) [facility]; [facility] Work Phone: Medications Current Medications Medication Drug Class(es) Dates Sig (Normalized) Sig (Original) [id number] 200 actuat albuterol 0.09 mg/actuat metered dose inhaler (20 sources) beta2-Adrenergic Agonist Start: 04-11-2022 Albuterol Sulfate 90 mcg/actuation HFA aerosol inhaler Active 2 NMA INHALATION EVERY 6 HOURS as needed April 11, 2022 12:00am Start: 04-11-2022 take 1 puff(s) by in halation every six hours Albuterol Sulfate Active 2 PUFF INHALATION EVERY 6 HOURS April 10, 2022 11:00pm Start: 09-14-2019 Start: 09-14-2019 ProAir HFA 108 (90 Base) MCG/ACT Inhalation Aerosol Solution 1 Aerosol Soln every 6 horus prn for 0 days Quantity: 1 {Inhalation} Refills: 0 Ordered: 14-Sep-2019 Korina ALFARO Joana Korina ALFARO, Mihaela Sarmiento Start : 14-Sep-2019 Active Start: 06-29-2018 End: 02-04-2019 Albuterol Sulfate 90 mcg/act uation HFA aerosol inhaler Discontinued 2 NMA INHALATION EVERY 6 HOURS as needed for shortness of breath 6.7 June 29, 2018 1:00am February 04, 2019 1:11pm Start: 06-29-2018 End: 02-04-2019 take 1 puff(s) by inhalation every six hours Albuterol Sulfate Discontinued 2 PUFF INHALATION EVERY 6 HOURS 6.7 June 29, 2018 12:00am February 04, 2019 12:11pm Start: 10-23-2012 End: 12-28-2013 PROAIR HFA, 108 (90 Base)MCG /ACT (Inhalation Aerosol Solution) 1 Aerosol Soln every 6 horus prn for 0 days Quantity: 1 {Aerosol_Soln} Refills: 0 Ordered: 28-Dec-2013 RALPH Leon Start : 23-Oct-2012 End : 28-Dec-2013 Inactive Albuterol (Eqv-ProAir HFA) 90 mcg/inh inhalation aerosol (4 sources) Start: 04-22-2023 Albuterol (Eqv-ProAir HFA) 90 mcg/inh inhalation aerosol Dose = 2 puff(s), 0 Refill(s) Start Date: 04/22/23 Status: Ordered bismuth subsalicylate 262 mg oral tablet (4 sources) Bismuth Start: 06-17-2024 take 1 tablet by mouth three times daily Bismuth Subsalicylate 262 mg tablet,chewable Active 2 {tbl} PO THREE TIMES A DAY June 17, 2024 1:00am Dczeketegr-Dbpnvcin-S ormoterol (7 sources) Corticosteroid , beta2-Adrenerg ic Agonist Start: 04-11-2022 Budesonide-Glycopyr- Formoterol (Breztri Aerosphere) 160-9-4.8 mcg/actuation HFA aerosol inhaler Active 2 NMA INHALATION TWICE A DAY April 11, 2022 12:00am Start: 04-11-2022 Budesonide-Gly copyr-Formoterol (Breztri Aerosphere) 160-9-4.8 mcg/actuation HFA aerosol inhaler Active 2 INH INHALATION TWICE A DAY April 10, 2022 11:00pm Start: 04-11-2022 Budesonide-Gly copyr-Formoterol (Breztri Aerosphere) 160-9-4.8 mcg/actuation HFA aerosol inhaler Active 2 INH INHALATION TWICE A DAY April 11, 2022 12:00am cetirizine hydrochloride 10 mg oral tablet (20 sources) Histamine-1 Receptor Antagonist Start: 04-11-2022 take 1 tablet by mouth once daily as needed Cetirizine (Zyrtec) 10 mg tablet Active 10 mg PO DAILY as needed April 11, 2022 12:00am Start: 08-05-2018 End: 04-11-2022 take 1 capsule by mouth once daily as needed Cetirizine (Zyrtec) 10 mg capsule Discontinued 10 mg PO DAILY as needed August 05, 2018 11:30am April 11, 2022 11:21am Start: 06-29-2018 End: 08-05-2018 Cetirizine (Zyrtec) 10 mg ca psule Discontinued PO June 29, 2018 1:00am August 05, 2018 11:31am Start: 10-18-2017 Start: 10-14-2012 End: 01-31-2016 meclizine hydrochloride 25 mg oral tablet (13 sources) Antiemetic Start: 05-24-2022 End: 12-03-2022 take 1 tablet by mouth twice daily as needed Meclizine 25 mg tablet Active 25 mg PO TWICE A DAY as needed for vertigo 120 December 03, 2022 5:09pm Singulair (20 sources) Leukotriene Receptor Antagonist Start: 04-22-2023 Singulair qDay, 0 Refill(s) Start Date: 04/22/23 Status: Ordered Start: 04-24-2021 Start: 09-14-2019 take 1 tablet by roxie [facility] once daily Singulair 10 MG Oral Tablet 1 Tablet qd for 0 days Quantity: 90 {Tablet} Refills: 3 Ordered: 14-Sep-2019 Mihaela Hui CNP, CNP Mihaela Sarmiento Start : 14-Sep-2019 Active Start: 06-29-2018 take 2 tablets by mo [facility] once daily Montelukast (Singulair) 5 mg tablet,chewable Active 10 mg PO DAILY June 29, 2018 1:00am Start: 08-21-2016 [facility] Singulair 10 MG Oral Tablet 1 Tablet qd prn for 0 days Quantity: 30 {Tablet} Refills: 0 Ordered: 21-Aug-2016 Mihaela Hui CNP, CNP Joana Start : 21-Aug-2016 Active Multivitamin preparation (3 sources) Start: 04-11-2022 take 1 tablet by mouth once daily Multivitamin Active 1 TABLET PO DAILY April 10, 2022 11:00pm Start: 04-11-2022 take 1 tablet by [facility] once daily Multivitamin Active 1 TABLET PO DAILY April 11, 2022 12:00am omeprazole 40 mg delayed release oral capsule (20 sources) Proton Pump Inhibitor Start: 04-14-2024 End: 07-20-2024 take 1 capsule by mouth once daily Omeprazole 40 mg capsule,delayed release(DR/EC) Active 40 mg PO daily July 20, 2024 2:09pm Start: 04-14-2024 End: 04-14-2024 take 1 capsule by mouth once daily Omeprazole 20 mg capsule,delayed release(DR/EC) Discontinued 20 mg PO daily April 14, 2024 12:00am April 14, 2024 1:30pm Start: 02-11-2016 End: 08-27-2022 take 1 capsule by mouth once daily Omeprazole 40 mg capsule,delayed release(DR/EC) Discontinued 40 mg PO DAILY August 05, 2018 1:00am August 27, 2022 2:23pm Start: 03-14-2015 End: 03-14-2015 ondansetron 4 mg disintegrating oral tablet (4 sources) Serotonin-3 Receptor Antagonist Start: 06-17-2024 take 1 tablet by mouth every eight hours as needed for nausea and vomiting Ondansetron 4 mg tablet,disintegrating Active 4 mg PO Q8H as needed for nausea and vomiting 60 June 17, 2024 1:00am prevagen (7 sources) Start: 04-11-2022 prevagen Active PO April 10, 2022 11:00pm Start: 04-11-2022 prevagen Activ e PO April 11, 2022 12:00am Completed/Discontinued Medications Medication Drug Class(es) Dates Sig (Normalized) Sig (Original) acetaminophen 500 mg oral tablet (20 sources) Start: 01-04-2017 Start: 01-04-2017 take 2 tablets by mo [facility] once daily as needed Extra Strength Pain Relief 500 MG Oral Tablet 2 (two) Tablet Tablet daily as needed for 0 days Quantity: 30 {Tablet} Refills: 0 Ordered: 12-Apr-2017 Rupa Boudreaux LPN Start : 04-Jan-2017 Active Comments: Medication taken as needed. Start: 09-13-2015 End: 09-13-2015 Comment on above: Medication taken as needed. not help amoxicillin 875 mg / clavula amando 125 mg oral tablet (20 sources) Penicillin-class Antibacterial Start: 08-22-2021 End: 09-06-2021 Start: 03-01-2021 End: 03-11-2021 Start: 10-21-2017 End: 11-04-2017 Start: 10-21-2017 End: 11-04-2017 take 1 tablet by mouth twice daily Augmentin 875-125 MG Oral Tablet 1 Tablet bid for 14 days Quantity: 28 {Tablet} Refills: 0 Ordered: 21-Oct-2017 Mihaela Hui CNP, CNP, Mary E Start : 21-Oct-2017 End : 04-Nov-2017 Inactive aspirin 81 mg delayed release oral tablet (20 sources) Platelet Aggregation Inhibitor, Nonsteroidal Anti-inflammatory Drug End: 08-21-2016 atorvastatin 40 mg oral tablet (4 sources) HMG-CoA Reductase Inhibitor Start: 01-13-2024 End: 09-16-2024 take 1 tablet by mouth once daily Atorvastatin 40 mg tablet Discontinued 40 mg PO DAILY 90 January 13, 2024 12:00am September 16, 2024 6:09pm azithromycin 250 mg oral tablet (20 sources) Macrolide Antimicrobial Start: 06-08-2019 End: 08-18-2019 Start: 06-29-2018 End: 08-07-2018 take 2-5 tablets by mouth once daily Azithromycin (Zithromax Z-Adelfo) 250 mg tablet Discontinued 0 PO .COMPLEX 6 June 29, 2018 1:00am August 07, 2018 3:30pm take 500 mg today (day 1), then 250 mg for 4 days (days 2-5) PO breath-actuated 120 actuat b eclomethasone dipropionate 0.04 mg/actuat metered dose inhaler (20 sources) Corticosteroid take 40 ug by inhalation twice d aily QVAR, 40MCG/ACT (Inhalation Aerosol Solution) 1-2 puffs bid as directed (40 MCG/ACT) Inactive Biotin (20 sources) biotin 5000 Acti ve 120 actuat budesonide 0.16 mg/actuat / formoterol fumarate 0.0045 mg/actuat metered dose inhaler (20 sources) Corticosteroid, beta2-Adrenergic Agonist Start: 05-01-2012 End: 10-23-2012 Start: 05-01-2012 End: 10-23-2012 Start: 05-01-2012 End: 10-23-2012 SYMBICORT, 160-4.5MCG/ACT (I nhalation Aerosol) 1 Aerosol bid for 0 days Quantity: 1 {Aerosol} Refills: 0 Ordered: 23-Oct-2012 Yue Hi MD Start : 01-May-2012 End : 23-Oct-2012 Discontinued cephalexin 500 mg oral capsule (5 sources) Cephalosporin Antibacterial Start: 01-09-2024 End: 03-11-2024 take 1 capsule by mouth four times daily for urinary tract infection Cephalexin 500 mg capsule Discontinued 500 mg PO .QID January 13, 2024 12:00am March 11, 2024 1:25pm x 7 days for UTI per pt cholecalciferol 0.025 mg oral capsule (20 sources) Vitamin D Start: 03-01-2021 End: 09-06-2021 Start: 08-31-2020 Start: 08-31-2020 take 1 capsule by [facility] once daily Vitamin D3 50 MCG (1999) Oral Capsule 1 (one) Capsule daily for 0 days Quantity: 30 {Capsule} Refills: 0 Ordered: 31-Aug-2020 Mihaela Hui CNP, CNP, Mary E Start : 31-Aug-2020 Active Start: 08-05-2018 End: 01-13-2024 take 1 tablet by mouth once daily Cholecalciferol (Vitamin D3) 2,000 unit tablet Discontinued 2000 U PO DAILY August 05, 2018 1:00am January 13, 2024 9:23am codeine phosphate 2 mg/ml / guaiFENesin 20 mg/ml oral solution (20 sources) Opioid Agonist Start: 03-11-2012 End: 10-14-2012 Start: 03-11-2012 End: 10-14-2012 CHERATUSSIN AC, 100-10MG/5ML (Oral Syrup) 1 Teaspoon(s) qhs prn for cough for 0 days Quantity: 6 {Ounce(s)} Refills: 0 Ordered: 14-Oct-2012 Start : 11-Mar-2012 End : 14-Oct-2012 Inactive cyclobenzaprine hydrochloride 10 mg oral tablet (4 sources) Muscle Relaxant Start: 11-27-2023 End: 01-13-2024 take 1 tablet by mouth at bedtime as needed for muscle spasms Cyclobenzaprine 10 mg tablet Discontinued 10 mg PO BEDTIME as needed for muscle spasm November 27, 2023 12:00am January 13, 2024 9:23am diclofenac sodium 20 mg/ml topical solution (19 sources) Nonsteroidal Anti-inflammatory Drug Start: 08-31-2020 Start: 03-16-2020 Pennsaid 2 % T ransdermal Solution 1 (one) Pump daily for 0 days Quantity: 1 {Pump} Refills: 0 Ordered: 06-Jun-2020 William Lara LPN Start : 16-Mar-2020 Active dicyclomine hydrochloride 10 mg oral capsule (20 sources) Anticholinergic Start: 02-13-2016 End: 08-21-2016 famotidine 20 mg oral tablet (6 sources) Histamine-2 Receptor Antagonist Start: 03-29-2024 End: 09-16-2024 take 1 tablet by mouth once daily Famotidine 20 mg tablet Discontinued 20 mg PO daily April 14, 2024 12:00am September 16, 2024 2:31pm fexofenadine hydrochloride 180 mg oral tablet (20 sources) Histamine-1 Receptor Antagonist 12 hr guaiFENesin 600 mg extended release oral tablet (20 sources) Start: 02-23-2015 End: 03-14-2015 hydroCHLOROthiazide 25 mg oral tablet (20 sources) Thiazide Diuretic Start: 05-04-2022 End: 12-02-2024 take 1 tablet by mouth once daily Hydrochlorothiazide 25 mg tablet Discontinued 0 .ROUTE .COMPLEX July 07, 2024 12:16pm December 02, 2024 10:30am TAKE 1 TABLET BY MOUTH EVERY DAY Start: 02-11-2016 End: 05-04-2022 take 1 tablet by mouth once daily Hydrochlorothiazide 12.5 mg tablet Discontinued 12.5 mg PO DAILY February 04, 2019 1:33pm May 04, 2022 5:17pm Comment on above: Medication taken as needed. lansoprazole 30 mg delayed release oral capsule (20 sources) Proton Pump Inhibitor Start: 5 End: 5 meloxicam 15 mg oral tablet (20 sources) Nonsteroidal Anti-inflammatory Drug Start: 9 End: 5 take 1 tablet by mouth once daily as needed for pain Meloxicam 15 mg tablet Discontinued 0 .ROUTE .COMPLEX March 06, 2024 5:01pm September 16, 2024 6:09pm TAKE 1 TABLET BY MOUTH DAILY NEEDED FOR PAIN Start: 08-21-2016 End: 01-04-2017 Meloxicam 15 MG Oral Tablet 1 Tablet as needed for 0 days Quantity: 30 {Tablet} Refills: 1 Ordered: 04-Jan-2017 Rupa Boudreaux LPN Start : 21-Aug-2016 End : 04-Jan-2017 Discontinued Comments: Medication taken as needed. Comment on above: Medication taken as needed. metroNIDAZOLE 250 mg oral tablet (4 sources) Nitroimidazole Antimicrobial Start: 06-17-20 24 End: 09-17-19 25 take 1 tablet by mouth three times daily Metronidazole 250 mg tablet Discontinued 250 mg PO THREE TIMES A DAY June 17, 2024 1:00am September 16, 2024 2:32pm mometasone furoate 0.05 mg/actuat metered dose nasal spray (20 sources) Corticosteroid Start: 01-15-20 12 End: 10-24-19 13 Start: 01-15-2012 End: 10-23-2012 NASONEX, 50MCG/ACT (Nasal Spaulding spension) 1 Suspension uad for 0 days Quantity: 1 {Suspension} Refills: 2 Ordered: 23-Oct-2012 RALPH Leon LPN Start : 15-Jan-2012 End : 23-Oct-2012 Inactive Multivitamin tablet (4 sources) Start: 04-11-2022 End: 09-16-2024 Multivitamin tablet Discontinued 1 {tbl} PO DAILY April 11, 2022 12:00am September 16, 2024 2:32pm nitrofurantoin, macrocrystals 25 mg / nitrofurantoin, monohydrate 75 mg oral capsule (20 sources) Nitrofuran Antibacterial Start: 09-12-2018 End: 09-19-2018 olopatadine 1 mg/ml ophthalmic solution (20 sources) Histamine-1 Receptor Inhibitor Start: 11-18-2012 End: 02-23-2015 Comment on above: [facility] 40 mg delayed release oral tablet (7 sources) Proton Pump Inhibitor Start: 08-27-2022 End: 08-14-2023 Pantoprazole (Protonix) 40 mg tablet,delayed release (DR/EC) Discontinued 40 mg PO DAILY August 27, 2022 1:00am August 14, 2023 2:01pm Take BID for 3 weeks then take daily polymyxin b [id number] unt/ml / trimethoprim 1 mg/ml ophthalmic solution (20 sources) Dihydrofolate Reductase Inhibitor Antibacterial, Polymyxin-class Antibacterial Start: 10-18-2017 End: 10-25-2017 Start: 10-18-2017 End: 10-25-2017 Polymyxin B-Trimethoprim 100 00-0.1 UNIT/ML-% Ophthalmic Solution 1 (one) Metric Drop Metric Drop qid for 7 days Quantity: 1 {Bottle} Refills: 0 Ordered: 18-Oct-2017 Rupa Boudreaux LPN Start : 18-Oct-2017 End : 25-Oct-2017 Inactive predniSONE 20 mg oral tablet (20 sources) Start: 11-15-2023 End: 11-27-2023 take 1 tablet by mouth twice daily Prednisone 20 mg tablet Discontinued 20 mg PO TWICE A DAY November 15, 2023 12:00am November 27, 2023 1:59pm Start: 06-08-2019 End: 08-18-2019 Start: 06-06-2019 End: 04-11-2022 Prednisone 10 mg tablets,dos e pack Discontinued 0 PO per package directions June 06, 2019 1:00am April 11, 2022 11:11am PO PER PKG DIR Start: 06-06-2019 End: 04-11-2022 Prednisone Discontinued 0 PO per package directions June 06, 2019 12:00am April 11, 2022 10:11am PO PER PKG DIR Start: 06-06-2019 End: 04-11-2022 Prednisone Discontinued 0 PO per package directions June 06, 2019 1:00am April 11, 2022 11:11am PO PER PKG DIR Start: 10-14-2012 End: 10-23-2012 Comment on above: Take with food sucralfate 1000 mg oral tabl et (20 sources) Aluminum Complex Start: 08-18-2019 End: 09-01-2019 Start: 01-04-2017 End: 01-18-2017 take 1 tablet by mouth four times daily 1 hour(s) before bedtime Sucralfate 1 GM Oral Tablet 1 (one) Tablet Tablet qid 1 hr before meals and at bedtime for 14 days Quantity: 56 {Tablet} Refills: 0 Ordered: 04-Jan-2017 Mihaela Hui CNP, CNP, Mary E Start : 04-Jan-2017 End : 18-Jan-2017 Inactive triamcinolone acetonide 0.05 5 mg/actuat metered dose nasal spray (20 sources) Corticosteroid Start: 10-18-2017 End: 07-09-2018 Start: 10-18-2017 End: 07-09-2018 Nasacort Allergy 24HR Childr en 55 MCG/ACT Nasal Aerosol 1 (one) Rogers as needed for 0 days Quantity: 1 {Rogers} Refills: 0 Ordered: 09-Jul-2018 Katalina Thomas Start : 18-Oct-2017 End : 09-Jul-2018 Discontinued Comments: Medication taken as needed. Start: 10-14-2012 End: 10-23-2012 Start: 10-14-2012 End: 10-23-2012 Start: 10-14-2012 End: 10-23-2012 NASACORT AQ, 55MCG/ACT (Nasa l Aerosol Solution) 1 Aerosol Soln two times daily, as needed for 360 days Quantity: 1 {Aerosol_Soln} Refills: 0 Ordered: 23-Oct-2012 RALPH Leon LPN Start : 14-Oct-2012 End : 23-Oct-2012 Inactive Comments: Medication taken as needed. Start: 10-14-2012 End: 10-23-2012 NASACORT AQ, 55MCG/ACT (Nasa l Aerosol Solution) 1 Aerosol Soln two times daily, as needed for 360 days Quantity: 1 {Aerosol_Soln} Refills: 0 Ordered: 23-Oct-2012 RALPH Leon Start : 14-Oct-2012 End : 23-Oct-2012 Inactive Comments: Medication taken as needed. TRIAMCINOLONE AC ETONIDE, 55MCG/ACT (Nasal Inhaler) 1-2 srapys each nostril qd-bid as needed (55 MCG/ACT) Inactive Comments: Medication taken as needed. Comment on above: Medication taken as needed. (16 sources) Problems Active Problems Problem Classification Problem Date Documented Da te Episodic/Chronic Abdominal pain (20 sources) Epigastric pain; Translations: [Abdominal pain, epigastric] Resolved: 1 09-14-2019 Episodic Comment on above: improved, using omep razole prn Allergic reactions (20 sources) Allergic disposition; Translations: [Allergy] 07-09-2018 Episodic Comment on above: [facility] Anxiety disorders (20 sources) Anxiety; Translations: [Anxiety] 06-06-2020 Chronic Comment on above: worried about indire ct exposure to covid, reassurance given, no symptoms, self monitor No covid testing at this time. Asthma (20 sources) Allergic asthma; Translations: [Allergic asthma] 07-09-2018 Chronic Comment on above: notice wheeze at nig ht will restart singulair because help when take at night. add zyretic stable gets allergy shots Dr. Cosby, asking for nasal spray Asthma (20 sources) Asthma Bacterial infection; unspecified site (1 source) Helicobacter pylori [H. pylori] as the cause of diseases classified elsewhere; Translations: [Helicobacter pylori [H. pylori] as the cause of diseases classified elsewhere] Onset: 5 Episodic Cardiac and circulatory congenital anomalies (20 sources) Patent foramen ovale; Translations: [Patent foramen ovale] 07-09-2018 Chronic Comment on above: stil on small bab y aspirin a a day Cardiac dysrhythmias (20 sources) Bradycardia; Translations: [Bradycardia] 07-09-2018 Chronic Comment on above: Rate 48 old stress e ch and old holter with 14 bradycardia, so now with SOB on exertion, will send to cardiology and in meantime repeat 24hr holter. Cardiac dysrhythmias (20 sources) Bradycardia; Translations: [Bradycardia] 03-01-2021 Episodic Conditions associated with dizziness or vertigo (9 sources) Vertigo; Translations: [Dizziness and giddiness] 05-24-2022 Episodic Deficiency and other anemia (20 sources) Anemia; Translations: [Anemia] Resolved: 2 05-31-2015 Episodic Diseases of white blood cells (20 sources) Leukopenia; Translations: [Leukopenia] Resolved: 2 07-09-2018 Chronic Comment on above: will follow Esophageal disorders (20 sources) Gastroesophageal reflux disease; Translations: [Diffuse spasm of esophagus] Onset: 4 07-09-2018 Chronic Comment on above: omeprazole on omeprazole, stop mobic and decrease coffee, had stress test and echo 02-01-15 normalwill monitor if worse would need scope BMX some relief? if gastric erosion from chronic nsaids for joint pain try sucralfate, using omeprazolestress test 2014 normal Esophageal disorders (14 sources) Esophageal dysmotility; Translations: [Esophageal spasm] 07-09-2018 Episodic Comment on above: on omeprazole, stop mobic and decrease coffee, had stress test and echo 02-01-15 normalwill monitor if worse would need scope BMX some relief? if gastric erosion from chronic nsaids for joint pain try sucralfate, using omeprazolestress test 2014 normal Essential hypertension (20 sources) Benign essential hypertension; Translations: [Hypertension, essential, benign] Onset: 1 07-09-2018 Chronic Comment on above: hctz working labs go od on this, well controlled use meloxicam with caution not on HCTZ Fever of unknown origin (6 sources) Fever; Translations: [Fever] 11-08-2021 Episodic Gastritis and duodenitis (13 sources) Helicobacter pylori-associated gastritis; Translations: [Gastritis, unspecified, without bleeding] Onset: 5 09-16-2024 Episodic Genitourinary symptoms and ill-defined conditions (20 sources) Blood in urine; Translations: [Hematuria, unspecified] Resolved: 6 09-13-2015 Episodic Comment on above: [id number] urolo gy workup repeat nex ov Kayce Headache; including migraine (20 sources) Ophthalmic migraine; 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] 07-09-2018 Chronic Comment on above: notice since gave up sweets for lint, she has been getting them more often Headache; including migraine (20 sources) Headache; Translations: [Headache] Resolved: 4 04-19-2015 Episodic Comment on above: better Immunizations and screening for infectious disease (20 sources) Need for prophylactic vaccination and inoculation against influenza; Translations: [Needs influenza immunization] Resolved: 4 03-01-2021 Episodic Inflammation; infection of eye (except that caused by tuberculosis or sexually transmitteddisease) (20 sources) Conjunctivitis; Translations: [Conjunctivitis] 07-09-2018 Episodic Influenza (20 sources) Influenza due to other identified influenza virus with other respiratory manifestations; Translations: [Influenza due to Influenza A virus subtype H1N1] Resolved: 0 09-15-2018 Episodic Comment on above: symptoms last week, tested positive improving Intestinal infection (1 source) Other specified bacterial intestinal infections; Translations: [Other specified bacterial intestinal infections] Onset: 5 Episodic Mood disorders (20 sources) Depression; Translations: [Depressive disorder] 07-09-2018 Chronic Comment on above: dealing wtih her hus band issues with spinal cord injury. getting better. stable mood does cry at times.younger. last few years ago when working. retired off med right now doing well. Nonspecific chest pain (20 sources) Chest pain; Translations: [Chest pain] Onset: 4 Resolved: 6 09-13-2015 Episodic Comment on above: think GI will use PP I and better adn off mobic now. take PPI for 6 weeks then stop it see if returns. Nutritional deficiencies (20 sources) Vitamin D deficiency; Translations: [Vitamin D deficiency] 08-31-2020 Chronic Osteoarthritis (20 sources) Osteoarthritis; Translations: [Arthritis] 07-09-2018 Chronic Comment on above: severe osteoarthriti s seen by Michelle. He doubts lupus, labs pending, lower back, knee off mobic because HT N and GI. tried tyenol not work as weel went backt omobic labs GI and bp good right now hands saw Dr Martinez, severe osteoarthritis hands Other aftercare (4 sources) Post-discharge follow-up; Translations: [Encounter for follow-up examination after completed treatment for conditions other than malignant neoplasm] 04-14-2024 Episodic Other bone disease and musculoskeletal deformities (20 sources) Osteopenia; Translations: [Osteopenia] 07-09-2018 Episodic Comment on above: on Vit D, ok to take 500mg Ricco daily and exercise Other circulatory disease (20 sources) Orthostatic hypotension; Translations: [Orthostatic hypotension] 09-12-2018 Episodic Other connective tissue disease (5 sources) Rotator cuff impingement syndrome; Translations: [Impingement syndrome of left shoulder] 08-14-2023 Episodic Other connective tissue disease (2 sources) Impingement syndrome of left shoulder; Translations: [Disorders of bursae and tendons in shoulder region, unspecified] 08-14-2023 Episodic Other connective tissue disease (1 source) Impingement syndrome of left shoulder region; Translations: [Impingement syndrome of left shoulder] Episodic Other connective tissue disease (4 sources) Pain in buttock; Translations: [Myalgia, other site] 11-27-2023 Episodic Other ear and sense organ disorders (20 sources) Excessive cerumen in ear canal ; Translations: [Ceruminosis, bilateral (Renamed from Excessive cerumen in both ear canals)] Resolved: 1 04-12-2017 Episodic Other ear and sense organ disorders (20 sources) Otalgia, right ear; Translations: [Ear pain, right] Resolved: 7 04-12-2017 Episodic Comment on above: Rt ear clear, pos si nus pain, will treat with augmentin, if no improvement will send to ENT Other ear and sense organ disorders (20 sources) Impacted cerumen; Translations: [Cerumen impaction] Resolved: 3 04-19-2015 Episodic Comment on above: bilateral worse in l eft (wax is deep ) Other gastrointestinal disorders (20 sources) Burping; Translations: [Burping] Resolved: 0 09-12-2018 Episodic Comment on above: bmx helped Other gastrointestinal disorders (4 sources) Dysphagia; Translations: [Dysphagia, unspecified] 04-14-2024 Episodic Other liver diseases (4 sources) Elevated liver enzymes level; Translations: [Abnormal levels of other serum enzymes] 03-04-2024 Episodic Other lower respiratory disease (20 sources) Chronic cough; Translations: [Chronic cough] Onset: 2 Resolved: 3 10-23-2012 Episodic Comment on above: was given flovent fr om Dr. Chisholm and proair Other lower respiratory disease (20 sources) Dyspnea; Translations: [Dyspnea] Resolved: 1 07-09-2018 Episodic Comment on above: per he notic e she is whistling in her sleep, does wake up from sleep short of breath, says snores SOB on exertion with reported chest pressure in past Other lower respiratory disease (20 sources) Wheezing; Translations: [Wheezing] 07-09-2018 Episodic Comment on above: worse at night, sing ulair helps Other lower respiratory disease (20 sources) H/O: pneumonia; Translations: [History of pneumonia] 07-09-2018 Episodic Comment on above: resolved Other lower respiratory disease (20 sources) Hiccoughs; Translations: [Hiccups] Resolved: 0 10-16-2019 Episodic Comment on above: improved with BMX Other lower respiratory disease (7 sources) Dyspnea on exertion; Translations: [Shortness of breath] 08-05-2018 Episodic Other nervous system disorders (1 source) Paresthesia; Translations: [Paresthesia of skin] Onset: 4 Episodic Other non-traumatic joint disorders (20 sources) Joint pain; Translations: [Joint pain] Resolved: 1 07-09-2018 Episodic Comment on above: joint pain , labs sh owing positive anti DNA DS ab, 1/2 sister with lupus will send to student development advisor apt in November with Michelle Other non-traumatic joint disorders (12 sources) Pain in right knee; Translations: [Knee pain, right] Resolved: 1 08-31-2020 Episodic Other nutritional; endocrine; and metabolic disorders (20 sources) Body mass index 30+ - obesity; Translations: [BMI 33.0-33.9,adult] Resolved: 7 04-12-2017 Chronic Other upper respiratory disease (20 sources) Allergic rhinitis; Translations: [Allergic rhinitis] 07-09-2018 Chronic Comment on above: sees CR. Chisholm get a llergy shots, Other upper respiratory disease (20 sources) Nasal congestion; Translations: [Nasal congestion] Resolved: 5 03-14-2015 Episodic Other upper respiratory disease (20 sources) Nasal discharge; Translations: [Runny nose] Resolved: 0 07-09-2018 Episodic Other upper respiratory disease (20 sources) Pain in throat Episodic Other upper respiratory infections (20 sources) Sinusitis; Translations: [Sinusitis] Resolved: 2 03-01-2021 Chronic Other upper respiratory infections (20 sources) Acute sinusitis, unspecified; Translations: [Acute sinusitis] Resolved: 4 07-09-2018 Episodic Pneumonia (except that caused by tuberculosis or sexually transmitted disease) (6 sources) Severe acute respiratory syndrome; Translations: [SARS (severe acute respiratory syndrome)] 11-08-2021 Episodic Prolapse of female genital organs (20 sources) Uterine prolapse; Translations: [Prolapsed uterus] 07-09-2018 Chronic Comment on above: was told in past has prolapsed uterus, will send back to [facility], ? reason for hematuria? Residual codes; unclassified (20 sources) Postmenopausal state; Translations: [Postmenopausal (Renamed from Postmenopausal status)] 07-09-2018 Episodic Residual codes; unclassified (20 sources) Needs influenza immunization; Translations: [Need for prophylactic vaccination and inoculation against influenza (Renamed from Need for immunization against influenza)] Resolved: 4 07-09-2018 Episodic Residual codes; unclassified (20 sources) Generalized aches and pains; Translations: [Body aches] Resolved: 4 06-16-2015 Episodic Residual codes; unclassified (20 sources) Flushing; Translations: [Hot flashes] 07-09-2018 Episodic Residual codes; unclassified (20 sources) Chill; Translations: [Chills] Resolved: 0 09-12-2018 Episodic Residual codes; unclassified (12 sources) Current non-smoker ; Translations: [Current nonsmoker (Renamed from Current non-smoker)] 11-26-2016 Episodic Residual codes; unclassified (20 sources) Non-smoker; Translations: [Nonsmoker] 06-08-2019 Episodic Syncope (20 sources) Syncope; Translations: [Syncope] 09-12-2018 Episodic Comment on above: x1 while on the toil et, has history of PFO, not been eating because of abd pain Transient cerebral ischemia (5 sources) Transient cerebral ischemia; Translations: [Transient cerebral ischemic attack, unspecified] Onset: 4 01-13-2024 Chronic Unclassified (20 sources) Unclassified (20 sources) HYPERTENSION, BENIGN ESSENTIAL (401.1) Unclassified (20 sources) OSTEOARTHROSIS NOS, OTHER SPEC SITE (715.98) Unclassified (20 sources) WWV V73.21 Resolved: 3 10-23-2012 Comment on above: mammo 06-24. not doi ng paps anymore. colonscopy 03-26 Unclassified (20 sources) Hypertension, essential, benign Unclassified (20 sources) Non-smoker; Translations: [Nonsmoker] 07-09-2018 Unclassified (20 sources) BMI 36.0-36.9,adult Unclassified (20 sources) Postmenopausal (Renamed from Postmenopausal status) Unclassified (20 sources) Osteoarthritis, hand Unclassified (20 sources) Prolapsed uterus Unclassified (20 sources) Breast cancer screening Unclassified (20 sources) Non-smoker Unclassified (20 sources) Abdominal pain, epigastric Unclassified (13 sources) BMI 34.0-34.9,adult Unclassified (20 sources) BMI 33.0-33.9,adult Unclassified (9 sources) Cerumen impaction Unclassified (9 sources) Knee pain, right Urinary tract infections (20 sources) Urinary tract infectious disease; Translations: [UTI (urinary tract infection)] 09-12-2018 Episodic Past or Other Problems Problem Classification Problem Date Documented Date Episodic/Chronic Influenza (20 sources) Influenza 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, hand] 09-14-2019 Comment on above: hands saw Dr Martinez, severe osteoarthritis hands Other connective tissue disease (1 source) Myalgia, other site; Translations: [Myalgia, other site] Onset: 02-06-2024 Episodic Other ear and sense organ disorders (15 sources) Otalgia of right ear; Translations: [Ear pain, right] Resolved: 04-12-2017 04-14-2019 Comment on above: Rt ear clear, pos si nus pain, will treat with augmentin, if no improvement will send to ENT Other liver diseases (1 source) Abnormal levels of other serum enzymes; Translations: [Abnormal levels of other serum enzymes] Onset: 05-06-2024 Episodic Other non-traumatic joint disorders (9 sources) Pain in right knee; Translations: [Knee pain, right] Resolved: 08-31-2020 03-16-2020 Comment on above: discussed Gel 1 lite rature given Other screening for suspected conditions (not mental disorders or infectious disease) (20 sources) Breast neoplasm screening status; Translations: [Patient encounter status] Onset: 04-22-2023 Resolved: 03-16-2020 03-14-2015 Episodic Pneumonia (except that caused by tuberculosis or sexually transmitted disease) (20 sources) Pneumonia (except that caused by tuberculosis or sexually transmitted disease) Spondylosis; intervertebral disc disorders; other back problems (13 sources) Chronic back pain ; Translations: [Dorsalgia, unspecified] Onset: 02-06-2024 08-27-2022 Episodic Syncope (20 sources) Syncope Unclassified (20 sources) Patient encounter status; Translations: [Annual Medicare Physical WITH abnormal findings (Renamed from Encounter for general adult medical examination with abnormal findings)] Resolved: 03-16-2020 07-09-2018 Comment on above: 3-16 reveiwed with p atient allquestions. due for pneumovax thenin one year prevnar. recommend shingles. told get at pharmacy. colonscopy done 03-26 Unclassified (20 sources) Current non-smoker ; Translations: [Current nonsmoker (Renamed from Current non-smoker)] 11-26-2016 Unclassified (20 sources) Deliveries (Parity); Translations: [Deliveries (Parity)] 07-09-2018 Comment on above: 3 Unclassified (20 sources) Encounter for screening mammogram for breast cancer (Renamed from Encounter for screening mammogram for malignant neoplasm of breast) Unclassified (20 sources) Cerumen impaction (380.4) Unclassified (20 sources) Pregnancies (); Translations: [Pregnancies ()] 07-09-2018 Comment on above: 3 Unclassified (20 sources) Unspecified Diagnosis Resolved: 03-14-2015 07-09-2018 Unclassified (20 sources) Osteoarthrosis, unspecified whether generalized or localized, other specified sites Unclassified (20 sources) Ceruminosis, bilateral (Renamed from Excessive cerumen in both ear canals) Unclassified (20 sources) Ear pain, right Unclassified (20 sources) BMI 35.0-35.9,adult Unclassified (20 sources) Excessive cerumen in ear canal, left Unclassified (20 sources) Screening mammogram, encounter for Unclassified (20 sources) Annual Medicare Physical (Renamed from Medicare annual wellness visit, subsequent) Unclassified (20 sources) Runny nose Unclassified (20 sources) Body aches (780.96) Unclassified (20 sources) Esophageal spasm Unclassified (20 sources) Hot flashes Unclassified (20 sources) BMI 37.0-37.9, adult Unclassified (10 sources) Screening status; Translations: [Screening for osteoporosis (Renamed from Encounter for screening for osteoporosis)] Resolved: 04-12-2017 04-14-2019 Unclassified (12 sources) Hiccups Unclassified (19 sources) Screening for breast cancer Results Test Name Value Interpretation Reference Range Facility H. PYLORI STOOL AGon 025 H PYLORI STL AG Positive Abnormal Negative [facility] Comment on above: Result Comment: Perf ormed at: [facility] [id number] Public Affairs Specialist: Tyler Ortega PhD, Phone: [phone] Performed By: #### L 0.1949 #### [facility]. [place], [place], [address] Stool Helicobacter pylori an tigen detection by immunoassayOrdered By: Tyler Johnson on 12-18-2024 H. pylori Ag IA Ql (Stl) Positive High Negative [facility] Comment on above: Performed at: [facility] [address] [id number] Director: Tyler Ortega PhD, Phone: [phone] H pylori Breath Teston 12-02 H.Pylori Breath Positive Abnormal Negative [facility] Comment on above: Order Comment: Reaso n for Exam: Increased Reflux Result Comment: Perf ormed at: [facility] [id number] Public Affairs Specialist: Tyler Ortega PhD, Phone: [phone] Performed By: #### L 0.1959 #### [facility] [address] [place], [place], [id number] Helicobacter pylori breath t estOrdered By: Bronson Bynum on 11-30-2024 CO2 post dose urea Ql (Exhl gas) Positive High Negative [facility] Comment on above: Performed at: [address] [id number] Director: Tyler Ortega PhD, Phone: [phone] Absolute lymphocyte countOrd ered By: Bronson Bynum on 11-27-2024 Lymphocytes Auto (Unsp spec) [#/Vol] 1.64 10*3/uL 0.83-4.51 [facility] Absolute neutrophil countOrd ered By: rishi Bynum on 11-27-2024 Neutrophils (Bld) [#/Vol] 2.4 10*3/uL 2.0-7.7 [facility] Anion gap in Serum or Plasma Ordered By: rishi Bynum on 11-27-2024 Anion gap [Moles/Vol] 11 mmol/L - [facility] Automated lymphocyte count a s percentage of total leukocytesOrdered By: rishi Bynum on 11-27-2024 Lymphocytes/100 WBC Auto (Unsp spec) 36.0 % - [facility] BUN/creatinine ratioOrdered By: laminecrestonsherry Bynum on 11-27-2024 Urea nitrogen/Creatinine [Mass ratio] 16.1 mg/mg 10- [facility] Basophil percentageOrdered B y: Bronson Bynum on 11-27-2024 Basophils/100 WBC (Bld) 0.9 % 0- [facility] Bilirubin, totalOrdered By: rishi Bynum on 11-27-2024 Bilirubin [Mass/Vol] 0.30 mg/dL 0.00-1.30 [facility] CBC W/Diff, Automatedon 11-12 Absolute Lymph 1.64 X10 3/uL Normal 0.83-4.51 [facility] Comment on above: Performed By: #### L 100.0100, L500.4050 #### [facility] [address] [place], [address] Absolute Neut 2.4 X10 3/uL Normal 2.0-7.7 [facility] Comment on above: Performed By: #### L 100.0100, L500.4050 #### [facility] [address] [place], [address] Basophils/100 WBC (Bld) 0.9 % Normal 0-1 [facility] Comment on above: Performed By: #### L 100.0100, L500.4050 #### [facility] [address] [place], [address] Eosinophils/100 WBC (Bld) 5.1 % High 0-5 [facility] Comment on above: Performed By: #### L 100.0100, L500.4050 #### [facility] [address] [place], [address] Erythrocyte distribution width (RBC) [Ratio] 12.4 % Normal 11.6-14.6 [facility] Comment on above: Performed By: #### L 100.0100, L500.4050 #### [facility] [address] [place], [address] Hematocrit (Bld) [Volume fraction] 35.7 % Low 37-47 [facility] Comment on above: Performed By: #### L 100.0100, L500.4050 #### [facility] [address] [place], [address] Hemoglobin (Bld) [Mass/Vol] 11.7 g/dL Low 12.0-15.0 [facility] Comment on above: Performed By: #### L 100.0100, L500.4050 #### [facility] [address] [place], [address] IG% 0.200 Normal 0.0-0.9 [facility] Comment on above: Result Comment: IG% - Immature Granulocytes (promyelocytes, myelocytes and metamyelocytes) > 1% indicates that a LEFT SHIFT is Present. Performed By: #### L 100.0100, L500.4050 #### [facility] [address] [place], [address] Lymphocytes/100 WBC (Bld) 36.0 % Normal 19-41 [facility] Comment on above: Performed By: #### L 100.0100, [id number] #### [facility] [address] [place], [address] MCH (RBC) [Entitic mass] 30.0 pg Normal 27.0-32.0 [facility] Comment on above: Performed By: #### L 100.0100, L500.4050 #### [facility] [address] [place], [address] MCHC (RBC) [Mass/Vol] 32.8 g/dL Normal 32-36 [facility] Comment on above: Performed By: #### L 100.0100, [id number] #### [facility] [address] [place], [address] MCV (RBC) [Entitic vol] 91.5 fL Normal 81-99 [facility] Comment on above: Performed By: #### L 100.0100, [id number] #### [facility] [address] [place], [address] Monocytes/100 WBC (Bld) 5.3 % Normal 0-10 [facility] Comment on above: Performed By: #### L 100.0100, [id number] #### [facility] [address] [place], [address] Neutrophils/100 WBC (Bld) 52.5 % Normal 47-70 [facility] Comment on above: Performed By: #### L 100.0100, [id number] #### [facility] [address] [place], [address] Nucleated RBC (Bld) [#/Vol] 0 10*3/uL Normal 0-5 [facility] Comment on above: Performed By: #### L 100.0100, [id number] #### [facility] [address] [place], [address] Platelet mean volume (Bld) [Entitic vol] 11.0 fL Normal 6.2-12.0 [facility] Comment on above: Performed By: #### L 100.0100, L500.4050 #### [facility] [address] [place], [address] Platelets (Bld) [#/Vol] 224 10*3/uL Normal 150-450 [facility] Comment on above: Performed By: #### L 100.0100, [id number] #### [facility] [address] [place], [address] RBC (Bld) [#/Vol] 3.90 10*6/uL Low 4.2-5.4 [facility] Comment on above: Performed By: #### L 100.0100, L500.4050 #### [facility] [address] [place], [address] RDW SD 41.5 fl Normal 35.1-43.9 [facility] Comment on above: Performed By: #### L 100.0100, [id number] #### [facility] [address] [place], [address] WBC (Bld) [#/Vol] 4.6 10*3/uL Normal 4.4-11.0 [facility] Comment on above: Performed By: #### L 100.0100, [id number] #### [facility] [address] [place], [address] Carbon dioxide, total [Moles /volume] in Central venous bloodOrdered By: Bronson Jaynatorsten on 11-27-2024 CO2 [Moles/Vol] 25.1 mmol/L 21.0-32.0 [facility] Chloride assayOrdered By: Geovany rishi Waldemarankit on 11-27-2024 Chloride [Moles/Vol] 104 mmol/L 98-108 [facility] Comprehensive Metabolic Prof ilon 11-27-2024 Albumin [Mass/Vol] 4.2 g/dL Normal 3.4-4.8 [facility] Comment on above: Performed By: #### L 100.0100, L500.4050 #### [facility] [facility] [address] [place], [address] Albumin/Globulin [Mass ratio] 1.4 {ratio} Normal 0.9-2.4 [facility] Comment on above: Performed By: #### L 100.0100, L500.4050 #### [facility] [address] [place], [address] ALK PHOS 82 U/L Normal 35-104 [facility] Comment on above: Performed By: #### L 100.0100, L500.4050 #### [facility] [address] [place], [address] ALT [Catalytic activity/Vol] 18 U/L Normal <=34 [facility] Comment on above: Performed By: #### L 100.0100, L500.4050 #### [facility] [address] [place], [address] AST [Catalytic activity/Vol] 21 U/L Normal <=31 [facility] Comment on above: Performed By: #### L 100.0100, L500.4050 #### [facility] [address] [place], [address] Bilirubin [Mass/Vol] 0.30 mg/dL Normal 0.00-1.30 [facility] Comment on above: Performed By: #### L 100.0100, L500.4050 #### [facility] [address] [place], [address] BUN/CRE 16.1 RATIO Normal 10-20 [facility] Comment on above: Performed By: #### L 100.0100, L500.4050 #### [facility] [address] [place], [address] Calcium [Mass/Vol] 9.5 mg/dL Normal 7.6-11.0 [facility] Comment on above: Performed By: #### L 100.0100, L500.4050 #### [facility] [address] [place], [address] Chloride [Moles/Vol] 104 mmol/L Normal 98-108 [facility] Comment on above: Performed By: #### L 100.0100, L500.4050 #### [facility] [address] [place], [address] CO2 [Moles/Vol] 25.1 mmol/L Normal 21.0-32.0 [facility] Comment on above: Performed By: #### L 100.0100, L500.4050 #### [facility] [address] [place], [address] Creatinine [Mass/Vol] 1.14 mg/dL Normal 0.70-1.20 [facility] Comment on above: Performed By: #### L 100.0100, L500.4050 #### [facility] [address] [place], [address] GAP 11 Normal 5-15 [facility] Comment on above: Performed By: #### L 100.0100, L500.4050 #### [facility] [address] [place], [address] GFR/1.73 sq M.predicted among non-blacks MDRD (S/P/Bld) [Vol rate/Area] 49 mL/min/{1.73_m2} Low >60 [facility] Comment on above: Result Comment: mL/m in/1.73m2 CKD-EPI Creatinine Equation (2020) Performed By: #### L 100.0100, L500.4050 #### [facility] [address] [place], [address] Globulin (S) [Mass/Vol] 3.0 g/dL Normal 2.2-4.2 [facility] Comment on above: Performed By: #### L 100.0100, L500.4050 #### [facility] [address] [place], [address] Glucose [Mass/Vol] 93 mg/dL Normal 70-99 [facility] Comment on above: Performed By: #### L 100.0100, L500.4050 #### [facility] [address] [place], [address] Potassium [Moles/Vol] 4.0 mmol/L Normal 3.3-5.1 [facility] Comment on above: Performed By: #### L 100.0100, L500.4050 #### [facility] [address] [place], [address] Sodium [Moles/Vol] 139 mmol/L Normal 133-145 [facility] Comment on above: Performed By: #### L 100.0100, L500.4050 #### [facility] [address] [place], [address] T PROT 7.2 g/dL Normal 5.9-8.4 [facility] Comment on above: Performed By: #### L 100.0100, L500.4050 #### [facility] [address] [place], [address] Urea nitrogen [Mass/Vol] 18 mg/dL Normal 4-19 [facility] Comment on above: Performed By: #### L 100.0100, L500.4050 #### [facility] [place], [address] Eosinophil percentageOrdered By: Bronson Bynum on 11-27-2024 Eosinophils/100 WBC (Bld) 5.1 % High 0-5 [facility] Erythrocyte distribution wid th ratioOrdered By: Bronson Bynum on 11-27-2024 Erythrocyte distribution width (RBC) [Ratio] 12.4 % 11.6-14.6 [facility] Erythrocyte distribution wid th standard deviationOrdered By: laminecrestonsherry Bynum on 11-27-2024 Erythrocyte distribution width (RBC) [Ratio] 41.5 fl 35.1-43.9 [facility] Glomerular filtration rate ( GFR) estimation/1.73 sq m using serum, plasma, or whole bOrdered By: Bronson Bynum on 11-27-2024 GFR/1.73 sq M.predicted among non-blacks MDRD (S/P/Bld) [Vol rate/Area] 49 mL/min/{1.73_m2} Low >60 [facility] Comment on above: mL/min/1.73m2 CKD-EP I Creatinine Equation (2020) Hematocrit Auto (Bld) [Volum e fraction]Ordered By: Bronson Bynum on 11-27-2024 Hematocrit (Bld) [Volume fraction] 35.7 % Low 37-47 [facility] Hemoglobin measurementOrdere d By: Bronson Bynum on 11-27-2024 Hemoglobin (Bld) [Mass/Vol] 11.7 g/dL Low 12.0-15.0 [facility] Immature granulocytes/100 WB C Auto (Bld)Ordered By: Bronson Bynum on 11-27-2024 Immature granulocytes/100 WBC (Bld) 0.200 % 0.0-0.9 [facility] Comment on above: IG% - Immature Granu locytes (promyelocytes, myelocytes and metamyelocytes) > 1% indicates that a LEFT SHIFT is Present. Internal Medicine Office Vis etelvina 11-27-2024 Internal Medicine Office Visit [facility] [address] [place] [address] [place] [address] OFFICE VISIT Date of Service: 11/27/24 MR#: [id number] Acct: [id number] Name: DAVID HUBBARD Rep #: [id number] : 1945 Provider: Dr. Bronson murry MD Age/Sex: 79/F [place] [facility] Status: Signed Intake Vital Signs 09/16/24 13:33 11/27/24 14:02 Height 5 ft 8 in 5 ft 8 in Weight: 183 lb 183 lb 4 oz BMI 27.8 27.8 BP 122/64 H 122/64 H Blood Pressure Location Lt brachial Lt brachial Position Sitting Sitting Respiration 14 16 Pulse 70 68 Pulse Source Monitor Monitor Temp 96.7 F L 97.1 F L Temp Source Temporal Temporal Pulse Oximetry (%) 97 94 Oxygen Delivery Method room air room air Intake Visit Reasons: PAIN IN UPPER RIB CAGE 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: pain in chest 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 Accompanied by: Self Is patient in pain?: Yes (intermittent pain ) Allergies Seasonal Allergies: Uncoded Allergy (Mild, Verified 11/27/24 13:55) nasal drainage Medications ???Medication ???Instructions ???Recorded ???Confirmed ???Type montelukast 5 mg chewable tablet 10 mg PO DAILY 06/29/18 11/27/24 H istory (Singulair) albuterol sulfate 90 mcg/actuation 2 puff inhalation Q6H PRN 11/27/24 History aerosol inhaler budesonide 160 mcg-glycopyr 9 2 inh inhalation BID 04/11/2211/12 History mcg-formot 4.8 mcg/actuation HFA inhaler (Breztri Aerosphere) cetirizine 10 mg tablet (Zyrtec) 10 mg PO DAILY PRN 04/11/22 History prevagen PO 04/11/22 11/27/24 History meclizine 25 mg tablet 25 mg PO BID PRN vertigo #120 tabs 12/03/22 11/27/24 Rx bismuth subsalicylate 262 mg 2 tab PO TID 06/17/24 11/27/24 His tory chewable tablet ondansetron 4 mg disintegrating 4 mg PO Q8H PRN nausea and 4 11/27/24 Rx tablet vomiting #60 tabs hydrochlorothiazide 25 mg tablet See Rx Instructions .Route 4 11/27/24 Rx .COMPLEX #90 tabs omeprazole 40 mg capsule,delayed 40 mg PO QDAY #90 caps 07/20/24 Rx release Have you fallen in the past year?: No [facility] Medical History (Updated 11/27/24 @ 20:[address] Bronson Bynum MD) Abnormal EKG Atypical chest pain Helicobacter pylori gastritis Elevated liver enzymes TIA (transient ischemic attack) Left buttock pain Anemia Chronic back pain Vertigo Osteoarthritis Cataracts, bilateral Osteopenia Allergy-induced asthma Patent foramen ovale Essential hypertension GERD (gastroesophageal reflux disease) SOB (shortness of breath) on exertion Seasonal allergies Knee pain Chest pain Fatigue Shortness of breath Arthritis Surgical History History of carpal tunnel release History of arthroscopy of right knee History of right breast biopsy History of tubal ligation Family History Sister Diabetes Brother CAD (coronary artery disease) Cardiac pacemaker in situ Asthma Sister Diabetes Heart disease Mother Hypertension Thyroid disorder Social History Smoking Status: Never smoker alcohol intake: never substance use type: does not use HPI HPI 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: pain in chest Details: DAVID HUBBARD, is a 79 F who presents to the office today for an acute visit. Last week, noted increased midsternal/upper abdominal discomfort. She states that it radiated up her chest and up to her jaw. Also noted increased burping. Laying down made it worse. Chronic history of reflux/gastritis and positive H. pylori testing, completed eradication therapy. Has been on omeprazole and reports compliance with it. Has also taken [id number] Tums as needed. Does not pay attention to the color of her stool. No change in bowel habit otherwise. She states that she made changes to when and what she ate and this week so far, has not had any concerns. No syncopal or near syncopal episodes. ROS Const Constitutional: No body ache, excessive sweating, fatigue, fever(s), frequent falls, headache(s), snoring, weakness, weight change, sleep problems or change in appetite Eyes Eyes: No blurry vision, change in vision, bulging eyes, floaters, visual disturbances, eye pain or Light sensitivity ENT ENT: No abnormal hearing, ear or mastoid pain, tinnitus, balance problems, nosebleed/epistaxis, nasal congestion, headache(s), neck pain or sore throat Resp Respiratory: No cough, excessive phlegm production, pain on inspiration, shortness of breath, snoring or wheezing Cardio Cardiology: No chest pain at rest, chest pain with exertion, excessive sweating, shortness of breath, dyspnea on exertion, lightheadedness, orthopnea or palpitations Gastro GI: No abdominal pain, change in b (more content not included)... Normal [facility] - Chemistry and C hemistry - challengeOrdered By: Bronson Bynum on 11-27-2024 AST [Catalytic activity/Vol] 21 U/L <32 [facility] MCV (mean corpuscular volume ) determinationOrdered By: Bronson Bynum on 11-27-2024 MCV (RBC) [Entitic vol] 91.5 fL 81-99 [facility] Mean corpuscular hemoglobin (MCH) determinationOrdered By: Bronson Bynum on 11-27-2024 MCH (RBC) [Entitic mass] 30.0 pg 27.0-32.0 [facility] Mean corpuscular hemoglobin concentration (MCHC) determinationOrdered By: Bronson Bynum on 11-27-2024 MCHC (RBC) [Mass/Vol] 32.8 g/dL 32-36 [facility] Mean platelet volume determi nationOrdered By: Bronson Bynum on 11-27-2024 Platelet mean volume (Bld) [Entitic vol] 11.0 fL 6.2-12.0 [facility] Monocyte percentageOrdered B y: Bronson Bynum on 11-27-2024 Monocytes/100 WBC (Bld) 5.3 % 0-10 [facility] Neutrophil percentageOrdered By: Bronson Bynum on 11-27-2024 Neutrophils/100 WBC (Bld) 52.5 % 47-70 [facility] Nucleated red blood cell per centageOrdered By: Bronson Bynum on 11-27-2024 Nucleated RBC/100 WBC (Bld) [Ratio] 0 % 0-5 [facility] Platelet countOrdered By: Geovany Bynum on 11-27-2024 Platelets (Bld) [#/Vol] 224 10*3/uL 150-450 [facility] Potassium measurement (mass/ volume)Ordered By: Bronson Bynum on 11-27-2024 Potassium (Unsp spec) [Mass/Vol] 4.0 mmol/L 3.3-5.1 [facility] RBC Auto (Bld) [#/Vol]Ordere d By: Bronson Bynum on 11-27-2024 RBC (Bld) [#/Vol] 3.90 10*6/uL Low 4.2-5.4 [facility] Serum creatinine measurement (mass/volume)Ordered By: Bronson Bynum on 11-27-2024 Creatinine [Mass/Vol] 1.14 mg/dL 0.70-1.20 [facility] Serum globulin measurementOr dered By: Bronson Bynum on 11-27-2024 Globulin (S) [Mass/Vol] 3.0 g/dL 2.2-4.2 [facility] Serum glucose measurement (m ass/volume)Ordered By: Bronson Bynum on 11-27-2024 Glucose [Mass/Vol] 93 mg/dL 70-99 [facility] Serum or plasma alanine sifuentes otransferase (ALT) measurementOrdered By: Bronson Bynum on 11-27-2024 ALT [Catalytic activity/Vol] 18 U/L <35 [facility] Serum or plasma albumin juan ramon urement (mass/volume)Ordered By: Bronson Bynum 11-27-2024 Albumin [Mass/Vol] 4.2 g/dL 3.4-4.8 [facility] Serum or plasma albumin/glob ulin mass ratioOrdered By: Bronson Bynum on 11-27-2024 Albumin/Globulin [Mass ratio] 1.4 {ratio} 0.9-2.4 [facility] Serum or plasma alkaline ray sphatase measurementOrdered By: Bronson Bynum on 11-27-2024 ALP [Catalytic activity/Vol] 82 U/L 35-104 [facility] Serum or plasma calcium juan ramon urement (mass/volume)Ordered By: Geovanyrishi Bynum on 11-27-2024 Calcium [Mass/Vol] 9.5 mg/dL 7.6-11.0 [facility] Serum or plasma urea nitroge n measurement (mass/volume)Ordered By: Bronson Bynum on 11-27-2024 Urea nitrogen [Mass/Vol] 18 mg/dL 4-19 [facility] Sodium levelOrdered By: Eugene fernandez Waldemarvenessatorsten on 11-27-2024 Sodium [Moles/Vol] 139 mmol/L 133-145 [facility] Total proteinOrdered By: Houston lima Fletcher on 11-27-2024 Protein [Mass/Vol] 7.2 g/dL 5.9-8.4 [facility] White blood cell (WBC) count Ordered By: Geovanyrishi Bynum on 11-27-2024 WBC (Bld) [#/Vol] 4.6 10*3/uL 4.4-11.0 [facility] Internal Medicine Office Vis itoverito 09-16-2024 Internal Medicine Office Visit [facility] [address] [place] [address] [place] [address] OFFICE VISIT Date of Service: 09/16/24 MR#: [id number] Acct: [id number] Name: STEVIEDAVID VIERA Rep #: [id number] : 1945 Provider: Dr. Bronson murry MD Age/Sex: 79/F Location[place] [facility] Status: Signed Intake Vital Signs 06/17/24 14:30 09/16/24 13:33 Height 5 ft 8 in 5 ft 8 in Weight: 184 lb 183 lb BMI 27.9 27.8 BP 120/62 122/64 H Blood Pressure Location Lt brachial Lt brachial Position Sitting Sitting Respiration 16 14 Pulse 93 70 Pulse Source Monitor Monitor Temp 97.0 F L 96.7 F L Temp Source Temporal Temporal Pulse Oximetry (%) 97 97 Oxygen Delivery Method room air room air Intake Visit Reasons: 3 M FU 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: 3m f/u 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 Is patient in pain?: No Allergies Seasonal Allergies: Uncoded Allergy (Mild, Verified 09/16/24 13:27) nasal drainage Medications ???Medication ???Instructions ???Recorded ???Confirmed ???Type montelukast 5 mg chewable tablet 10 mg PO DAILY 06/29/18 09/16/24 H istory (Singulair) albuterol sulfate 90 mcg/actuation 2 puff inhalation Q6H PRN 09/16/24 History aerosol inhaler budesonide 160 mcg-glycopyr 9 2 inh inhalation BID 04/11/2212/06 History mcg-formot 4.8 mcg/actuation HFA inhaler (Breztri Aerosphere) cetirizine 10 mg tablet (Zyrtec) 10 mg PO DAILY PRN 04/11/22 History prevagen PO 04/11/22 09/16/24 History meclizine 25 mg tablet 25 mg PO BID PRN vertigo #120 tabs 12/03/22 09/16/24 Rx bismuth subsalicylate 262 mg 2 tab PO TID 06/17/24 09/16/24 His tory chewable tablet ondansetron 4 mg disintegrating 4 mg PO Q8H PRN nausea and 4 09/16/24 Rx tablet vomiting #60 tabs hydrochlorothiazide 25 mg tablet See Rx Instructions .Route 4 09/16/24 Rx .COMPLEX #90 tabs omeprazole 40 mg capsule,delayed 40 mg PO QDAY #90 caps 07/20/24 Rx release Have you fallen in the past year?: No PFSH Medical History Helicobacter pylori gastritis Elevated liver enzymes TIA (transient ischemic attack) Left buttock pain Anemia Chronic back pain Vertigo Osteoarthritis Cataracts, bilateral Osteopenia Allergy-induced asthma Patent foramen ovale Essential hypertension GERD (gastroesophageal reflux disease) SOB (shortness of breath) on exertion Seasonal allergies Knee pain Chest pain Fatigue Shortness of breath Arthritis Surgical History History of carpal tunnel release History of arthroscopy of right knee History of right breast biopsy History of tubal ligation Family History Sister Diabetes Brother CAD (coronary artery disease) Cardiac pacemaker in situ Asthma Sister Diabetes Heart disease Mother Hypertension Thyroid disorder Social History Smoking Status: Never smoker alcohol intake: never substance use type: does not use HPI HPI 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: 3m f/u Details: DAVID HUBBARD, is a 79 F who presents to the office today for follow-up of her chronic medical conditions. History of H. pylori gastritis. Status post eradication therapy. Currently on omeprazole and she has questions about continuing this. No dark or bloody stool or unintentional weight changes. History of hypertension, blood pressure today at 122/64 mmHg. No chest pain, palpitation or shortness of breath. Other chronic medical conditions are stable. ROS Const Constitutional: No body ache, chills, excessive sweating, fatigue, fever(s), frequent falls, headache(s), snoring, weakness, sleep problems or change in appetite Eyes Eyes: No blurry vision, change in vision, floaters, visual disturbances, eye pain or Light sensitivity ENT ENT: No abnormal hearing, ear or mastoid pain, tinnitus, balance problems, nosebleed/epistaxis, nasal congestion, headache(s), neck pain or sore throat Resp Respiratory: No cough, excessive phlegm production, pain on inspiration, shortness of breath, snoring or wheezing Cardio Cardiology: No chest pain at rest, chest pain with exertion, excessive sweating, shortness of breath, dyspnea on exertion, lightheadedness, orthopnea or palpitations Gastro GI: No abdominal pain, change in bowel habits, constipation, cramping, diarrhea, nausea/dyspepsia or vomiting Genitourinary-Female: No burning urination, painful urination, urinary incontinence, urinary frequency, suprapubic fullness, side pain, abnormal vaginal bleeding or pelvic pain Musc Musculoskeletal: No abnormal gait, joint pain, back pain, limite (more content not included)... Normal [facility] Comprehensive Metabolic Prof clinton 06-17-2024 Albumin [Mass/Vol] 3.9 g/dL Normal 3.2-5.0 [facility] Comment on above: Performed By: #### L 500.4050 #### [facility] [address] [place], [address] Albumin/Globulin [Mass ratio] 1.0 {ratio} Normal 0.9-2.4 [facility] Comment on above: Performed By: #### L 500.4050 #### [facility] [address] [place], [address] ALK P 78 U/L Normal 45-117 [facility] Comment on above: Performed By: #### L 500.4050 #### [facility] [address] [place], [address] ALT [Catalytic activity/Vol] 25 U/L Normal 13-56 [facility] Comment on above: Performed By: #### L 500.4050 #### [facility] [address] [place], [address] AST [Catalytic activity/Vol] 20 U/L Normal 15-37 [facility] Comment on above: Performed By: #### L 500.4050 #### [facility] [address] [place], [address] Bilirubin [Mass/Vol] 0.30 mg/dL Normal 0.20-1.00 [facility] Comment on above: Result Comment: For patients on eltrombopag therapy, use of Dimension [place] TBIL is not recommended. Performed By: #### L 500.4050 #### [facility] [address] [place], [address] BUN/CRE 15.8 RATIO Normal 10-20 [facility] Comment on above: Performed By: #### L 500.4050 #### [facility] [address] [place], [address] CA,Total 9.6 mg/dL Normal 8.5-10.1 [facility] Comment on above: Performed By: #### L 500.4050 #### [facility] [address] [place], [address] Chloride [Moles/Vol] 104 mmol/L Normal 98-107 [facility] Comment on above: Performed By: #### L 500.4050 #### [facility] [address] [place], [address] CO2 [Moles/Vol] 29.0 mmol/L Normal 21.0-32.0 [facility] Comment on above: Performed By: #### L 500.4050 #### [facility] [address] [place], [address] Creatinine [Mass/Vol] 0.95 mg/dL Normal 0.55-1.02 [facility] Comment on above: Result Comment: The validity of the calculated GFR GFRAA in patients over 70 years has not been determined. Clinical correlation is essential. Performed By: #### L 500.4050 #### [facility] [address] [place], [address] EST GFR - AA 73 mL/min Normal >60 [facility] Comment on above: Result Comment: Afri can Egyptian GFR Calc Performed By: #### L 500.4050 #### [facility] [address] [place], [address] GAP 6 Normal 5-15 [facility] Comment on above: Performed By: #### L 500.4050 #### [facility] [address] [place], [address] GFR/1.73 sq M.predicted among non-blacks MDRD (S/P/Bld) [Vol rate/Area] 60 mL/min/{1.73_m2} Normal >60 [facility] Comment on above: Result Comment: Non- GFR Calc Performed By: #### L 500.4050 #### [facility] [address] [place], [address] Globulin (S) [Mass/Vol] 4.0 g/dL Normal 2.2-4.2 [facility] Comment on above: Performed By: #### L 500.4050 #### [facility] [address] [place], [address] Glucose [Mass/Vol] 97 mg/dL Normal 74-106 [facility] Comment on above: Performed By: #### L 500.4050 #### [facility] [address] [place], [address] Potassium [Moles/Vol] 4.2 mmol/L Normal 3.5-5.1 [facility] Comment on above: Performed By: #### L 500.4050 #### [facility] [address] [place], [address] Sodium [Moles/Vol] 140 mmol/L Normal 136-145 [facility] Comment on above: Performed By: #### L 500.4050 #### [facility] [address] [place], [address] T PROT 7.9 g/dL Normal 6.4-8.2 [facility] Comment on above: Performed By: #### L 500.4050 #### [facility] [address] [place], [address] Urea nitrogen [Mass/Vol] 15 mg/dL Normal 7-18 [facility] Comment on above: Performed By: #### L 500.4050 #### [facility] [address] [place], [address] Internal Medicine Office Vis etelvina 06-17-2024 Internal Medicine Office Visit [facility] [place] [address] [place] [address] OFFICE VISIT Date of Service: 06/17/24 MR#: [id number] Acct: [id number] Name: DAVID HUBBARD Rep #: [id number] : 1945 Provider: Dr. Bronson murry MD Age/Sex: 78/F Location[place] [facility] Status: Signed Intake Vital Signs 03/11/24 13:26 04/14/24 13:02 06/17/24 14:30 Height 5 ft 8 in 5 ft 8 in 5 ft 8 in Weight: 184 lb BMI 27.9 BP 120/62 Blood Pressure Location Lt brachial Position Sitting Respiration 16 Pulse 93 Pulse Source Monitor Temp 97.0 F L Temp Source Temporal Pulse Oximetry (%) 97 Oxygen Delivery Method room air Intake Visit Reasons: 3 M FU 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: 3m f/u 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 Accompanied by: Self Is patient in pain?: No Allergies Seasonal Allergies: Uncoded Allergy (Mild, Verified 06/17/24 14:23) nasal drainage Medications ???Medication ???Instructions ???Recorded ???Confirmed ???Type montelukast 5 mg chewable tablet 10 mg PO DAILY 06/29/18 06/17/24 History (Singulair) albuterol sulfate 90 mcg/actuation 2 puff inhalation Q6H PRN 04/11/22 06/17/24 History aerosol inhaler budesonide 160 mcg-glycopyr 9 2 inh inhalation BID 04/11/22 06/17/24 History mcg-formot 4.8 mcg/actuation HFA inhaler (Breztri Aerosphere) cetirizine 10 mg tablet (Zyrtec) 10 mg PO DAILY PRN 04/11/22 06/17/24 History multivitamin 1 tab PO DAILY 04/11/22 06/17/24 History prevagen PO 04/11/22 06/17/24 History meclizine 25 mg tablet 25 mg PO BID PRN vertigo #120 tabs 12/03/22 06/17/24 Rx atorvastatin 40 mg tablet 40 mg PO DAILY #90 tabs 01/13/24 06/17/24 Rx hydrochlorothiazide 25 mg tablet See Rx Instructions .Route 01/27/24 06/17/24 Rx .COMPLEX #90 tabs meloxicam 15 mg tablet See Rx Instructions .Route 03/06/24 06/17/24 Rx .COMPLEX #30 tabs famotidine 20 mg tablet 20 mg PO QDAY 04/14/24 06/17/24 History omeprazole 40 mg capsule,delayed 40 mg PO QDAY #90 caps 04/14/24 06/17/24 Rx release bismuth subsalicylate 262 mg 2 tab PO TID 06/17/24 06/17/24 History chewable tablet metronidazole 250 mg tablet 250 mg PO TID 06/17/24 06/17/24 History ondansetron 4 mg disintegrating 4 mg PO Q8H PRN nausea and 06/17/24 06/17/24 Rx tablet vomiting #60 tabs Have you fallen in the past year?: No PFSH Medical History (Updated 06/17/24 @ 16:[address] Bronson Bynum MD) Helicobacter pylori gastritis Elevated liver enzymes TIA (transient ischemic attack) Left buttock pain Anemia Chronic back pain Vertigo Osteoarthritis Cataracts, bilateral Osteopenia Allergy-induced asthma Patent foramen ovale Essential hypertension GERD (gastroesophageal reflux disease) SOB (shortness of breath) on exertion Seasonal allergies Knee pain Chest pain Fatigue Shortness of breath Arthritis Surgical History History of carpal tunnel release History of arthroscopy of right knee History of right breast biopsy History of tubal ligation Family History Sister Diabetes Brother CAD (coronary artery disease) Cardiac pacemaker in situ Asthma Sister Diabetes Heart disease Mother Hypertension Thyroid disorder Social History Smoking Status: Never smoker alcohol intake: never substance use type: does not use HPI HPI 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: 3m f/u Details: DAVID HUBBARD, is a 78 F who presents to the office today for follow-up of her chronic conditions. Also has some concerns. Following up with gastroenterology and following recent EGD/biopsy, she was started on metronidazole, bismuth and omeprazole for H. pylori. Has been doing okay on metronidazole however, she states that this morning she woke up with some upper abdominal discomfort, nausea but no vomiting. Seems to be easing off. No diarrhea or change in bowel habit. No chills, fever or otherwise feeling of unwell. Believes that she may have eaten something that triggered this. Otherwise, symptoms have improved on medication overall. History of hypertension, blood pressure today at 120/62 mmHg. No chest pain, palpitation or shortness of breath. Taking her medications as prescribed. Other chronic medical conditions are stable. ROS Const Constitutional: No body ache, chills, excessive sweating, fatigue, fever(s), frequent falls, headache(s), snoring, weakness or change in appetite Eyes Eyes: No blurry vision, change in vision, bulging eyes, floaters, visual disturbances, eye pain or Light sensitivity ENT ENT: No abnormal hearing, ear or mastoid pain, tinnitus, balance problems, nosebleed/epistaxis, nasal congestion, headache(s), neck pain or sore throat Resp Respiratory: No coug (more content not included)... Normal [facility] SCRN MAMM (CAD)W/MICH BILATo n 06-03-2024 SCRN MAMM (CAD)W/MICH BILAT [facility] Imaging Services [address] [place] [id number] SCRN MAMM (CAD)W/MICH BILAT MR#: [id number] Acct: [id number] Name: DAVID HUBBARD Rep #: [id number] : 1945 F 78 From: Emory canseco MD PCP: Dr. Bronson Bynum MD Status: [facility] Study: SCRN MAMM (CAD)W/MICH BILAT Date of Exam: 05/16 Exam# [id number] Ordering Dr: Bronson Bynum MD [id number] MAMMOGRAPHY - BILATERAL SCREENING REASON FOR EXAM: Female, 78 years old. Routine annual screening examination. PERTINENT HISTORY: Aunt with breast cancer. TECHNIQUE: Digital bilateral breast mich (3D mammographic acquisition) in the CC and MLO projections. 2-D mediolateral oblique (MLO) and craniocaudad (CC) views of both breasts were obtained. CAD: Full Field Digital Mammography with Computer Added Detection was performed. COMPARISON: Comparison is made with prior study dated May 20, 2023 and May 17, 2022. FINDINGS: Breast Composition: The breasts are heterogeneously dense, which may obscure small masses. There are no dominant masses or suspicious calcifications. No other significant abnormalities are identified. There has been no significant change since the prior study. BI/SCRN MAMM (CAD)W/MICH BILAT IMPRESSION: Stable bilateral screening mammogram. Yearly follow-up mammogram recommended. (A) ASSESSMENT CATEGORY: BIRADS Category 1: Negative. A letter regarding these results will be sent to the patient by the facility within 30 days. Approximately 10% of breast cancers are not detected by mammography. A normal mammogram should not delay biopsy of a clinically suspicious abnormality. [id number] Electronically Signed: Emory Sheppard MD at 13:16 EST Reading Location ID and State: [facility] / [place] , Service support , CC: Dr. Bronson Bynum MD Program Writer: Signed Normal [facility] Internal Medicine Office [facility] [place] 04-14-2024 Internal Medicine Office Visit [facility] [address] [place] [address] [place] [address] OFFICE VISIT Date of Service: 04/14/24 MR#: [id number] Acct: [id number] Name: STEVIEDAVID VIERA Rep #: [id number] : 1945 Provider: KARO munoz Age/Sex: 78/F Location[place] [facility] Status: Signed Intake Vital Signs 03/11/24 13:26 04/14/24 13:02 Height 5 ft 8 in 5 ft 8 in Weight: 183 lb 184 lb 6 oz BMI 27.8 28.0 BP 120/70 118/64 Blood Pressure Location Lt brachial Lt brachial Position Sitting Sitting Respiration 14 16 Pulse 63 65 Pulse Source Monitor Monitor Temp 97.4 F L 97.6 F L Temp Source Temporal Temporal Pulse Oximetry (%) 93 96 Oxygen Delivery Method room air room air Intake Visit Reasons: Hospital FU/ CHEST PAIN 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: hospital f/u 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 Accompanied by: Self Is patient in pain?: No Allergies Seasonal Allergies: Uncoded Allergy (Mild, Verified 04/14/24 12:59) nasal drainage Medications ???Medication ???Instructions ???Recorded ???Confirmed ???Type montelukast 5 mg chewable tablet 10 mg PO DAILY 06/29/18 04/14/24 History (Singulair) albuterol sulfate 90 mcg/actuation 2 puff inhalation Q6H PRN 04/11/22 04/14/24 History aerosol inhaler budesonide 160 mcg-glycopyr 9 2 inh inhalation BID 04/11/22 04/14/24 History mcg-formot 4.8 mcg/actuation HFA inhaler (Breztri Aerosphere) cetirizine 10 mg tablet (Zyrtec) 10 mg PO DAILY PRN 04/11/22 04/14/24 History multivitamin 1 tab PO DAILY 04/11/22 04/14/24 History prevagen PO 04/11/22 04/14/24 History meclizine 25 mg tablet 25 mg PO BID PRN vertigo #120 tabs 12/03/22 04/14/24 Rx atorvastatin 40 mg tablet 40 mg PO DAILY #90 tabs 01/13/24 04/14/24 Rx hydrochlorothiazide 25 mg tablet See Rx Instructions .Route 01/27/24 04/14/24 Rx .COMPLEX #90 tabs meloxicam 15 mg tablet See Rx Instructions .Route 03/06/24 04/14/24 Rx .COMPLEX #30 tabs famotidine 20 mg tablet 20 mg PO QDAY 04/14/24 04/14/24 History omeprazole 40 mg capsule,delayed 40 mg PO QDAY #90 caps 04/14/24 04/14/24 Rx release Have you fallen in the past year?: No PFSH Medical History Elevated liver enzymes TIA (transient ischemic attack) Left buttock pain Anemia Chronic back pain Vertigo Osteoarthritis Cataracts, bilateral Osteopenia Allergy-induced asthma Patent foramen ovale Essential hypertension GERD (gastroesophageal reflux disease) SOB (shortness of breath) on exertion Seasonal allergies Knee pain Chest pain Fatigue Shortness of breath Arthritis Surgical History History of carpal tunnel release History of arthroscopy of right knee History of right breast biopsy History of tubal ligation Family History Sister Diabetes Brother CAD (coronary artery disease) Cardiac pacemaker in situ Asthma Sister Diabetes Heart disease Mother Hypertension Thyroid disorder Social History Smoking Status: Never smoker alcohol intake: never substance use type: does not use HPI HPI 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: hospital f/u Details: DAVID HUBBARD, is a 78 F who presents to the office today for a hospital f/u. She was evaluated at [facility] emergency department on 03/29/2024. She reports she woke up with a burning discomfort to the epigastric region describing it as indigestion. She describes it as a cutting sensation. She reports it became more intense and she discussed it with her sister who thought she should be evaluated at emergency department. She reports the pain was worse with inspiration and with movement of her back and arms. She denies any associated shortness of breath, pain radiation to neck/shoulder, nausea, vomiting, sweating or abdominal pain. While in the emergency department laboratory studies were unremarkable with slightly elevated creatinine at 1.05 which appears to be consistent with patient's baseline, chest x-ray with no acute findings, troponin was performed x 2 and negative, proBNP was unremarkable. EKG was also stable showing normal sinus rhythm without significant ST elevation or depression. She was provided Maalox and viscous lidocaine and states it mildly relieved her symptoms. She was diagnosed with GERD and recommended to continue PPI therapy with omeprazole. She reports she continued to have symptoms for the next week or so however within the past 7 days her symptoms have resolved. She reports the symptoms remain the same with burning/stabbing feeling to the center of her chest described as a deep feeling that was worse with inspiration and movement. She is not sure if it was related to meals. She also reports she has (more content not included)... Normal [facility] Comprehensive Metabolic Prof [place] 04-13-2024 Albumin [Mass/Vol] 3.8 g/dL Normal 3.2-5.0 [facility] Comment on above: Performed By: #### L 500.4050 #### [facility] [address] [place], [address] Albumin/Globulin [Mass ratio] 1.1 {ratio} Normal 0.9-2.4 [facility] Comment on above: Performed By: #### L [id number] #### [facility] [address] [place], [address] ALK P 106 U/L Normal 45-117 [facility] Comment on above: Performed By: #### L [id number] #### [facility] [address] [place], [address] ALT [Catalytic activity/Vol] 29 U/L Normal 13-56 [facility] Comment on above: Performed By: #### L [id number] #### [facility] [address] [place], [address] AST [Catalytic activity/Vol] 27 U/L Normal 15-37 [facility] Comment on above: Performed By: #### L [id number] #### [facility] [address] [place], [address] Bilirubin [Mass/Vol] 0.60 mg/dL Normal 0.20-1.00 [facility] Comment on above: Result Comment: For patients on eltrombopag therapy, use of Dimension [place] TBIL is not recommended. Performed By: #### L [id number] #### [facility] [address] [place], [address] BUN/CRE 15.8 RATIO Normal 10-20 [facility] Comment on above: Performed By: #### L [id number] #### [facility] [address] [place], [address] CA,Total 9.3 mg/dL Normal 8.5-10.1 [facility] Comment on above: Performed By: #### L [id number] #### [facility] [address] [place], [address] Chloride [Moles/Vol] 107 mmol/L Normal 98-107 [facility] Comment on above: Performed By: #### L [id number] #### [facility] [address] [place], [address] CO2 [Moles/Vol] 29.0 mmol/L Normal 21.0-32.0 [facility] Comment on above: Performed By: #### L [id number] #### [facility] [address] [place], [address] Creatinine [Mass/Vol] 1.14 mg/dL High 0.55-1.02 [facility] Comment on above: Result Comment: The validity of the calculated GFR GFRAA in patients over 70 years has not been determined. Clinical correlation is essential. Performed By: #### L [id number] #### [facility] [address] [place], [address] EST GFR - AA 59 mL/min Low >60 [facility] Comment on above: Result Comment: Afri can Egyptian GFR Calc Performed By: #### L [id number] #### [facility] [address] [place], [address] GAP 5 Normal 5-15 [facility] Comment on above: Performed By: #### L [id number] #### [facility] [address] [place], [address] GFR/1.73 sq M.predicted among non-blacks MDRD (S/P/Bld) [Vol rate/Area] 49 mL/min/{1.73_m2} Low >60 [facility] Comment on above: Result Comment: Non- GFR Calc Performed By: #### L [id number] #### [facility] [address] [place], [address] Globulin (S) [Mass/Vol] 3.4 g/dL Normal 2.2-4.2 [facility] Comment on above: Performed By: #### L [id number] #### [facility] [address] [place], [address] Glucose [Mass/Vol] 72 mg/dL Low 74-106 [facility] Comment on above: Performed By: #### L [id number] #### [facility] [address] [place], [address] Potassium [Moles/Vol] 4.0 mmol/L Normal 3.5-5.1 [facility] Comment on above: Performed By: #### L [id number] #### [facility] [address] [place], [address] Sodium [Moles/Vol] 142 mmol/L Normal 136-145 [facility] Comment on above: Performed By: #### L [id number] #### [facility] [address] [place], [address] T PROT 7.2 g/dL Normal 6.4-8.2 [facility] Comment on above: Performed By: #### L [id number] #### [facility] [address] [place], [address] Urea nitrogen [Mass/Vol] 18 mg/dL Normal 7-18 [facility] Comment on above: Performed By: #### L [id number] #### [facility] [address] [place], [address] .Auto Diffon 03-29-2024 Basophil, Absolute 0.0 10 3/mcL Normal 0.0-0.2 [facility] Comment on above: Performed By: #### A KARLENE, MG, BMP, MDW, GFR, TROPHS, CBC, ADIFF, PBNP #### [address] [address] Basophils/100 WBC (Bld) 0.9 % Normal 0.0-2.5 [facility] Comment on above: Performed By: #### A KARLENE, MG, BMP, MDW, GFR, TROPHS, CBC, ADIFF, PBNP #### [address] [address] Eosinophil, Absolute 0.4 10 3/mcL Normal 0.0-0.4 [facility] Comment on above: Performed By: #### A KARLENE, MG, BMP, MDW, GFR, TROPHS, CBC, ADIFF, PBNP #### [address] [address] Eosinophils/100 WBC (Bld) 7.4 % High 0.0-7.0 [facility] Comment on above: Performed By: #### A KARLENE, MG, BMP, MDW, GFR, TROPHS, CBC, ADIFF, PBNP #### [address] [address] Lymphocyte, Absolute 1.6 10 3/mcL Normal 0.8-3.9 [facility] Comment on above: Performed By: #### A KARLENE, MG, BMP, MDW, GFR, TROPHS, CBC, ADIFF, PBNP #### [address] [address] Lymphocytes/100 WBC (Bld) 28.9 % Normal 10.0-50.0 [facility] Comment on above: Performed By: #### A KARLENE, MG, BMP, MDW, GFR, TROPHS, CBC, ADIFF, PBNP #### [address] [address] Monocyte, Absolute 0.2 10 3/mcL Normal 0.2-1.0 [facility] Comment on above: Performed By: #### A KARLENE, MG, BMP, MDW, GFR, TROPHS, CBC, ADIFF, PBNP #### [address] [address] Monocytes/100 WBC (Bld) 3.5 % Normal 1.7-13.0 [facility] Comment on above: Performed By: #### A KARLENE, MG, BMP, MDW, GFR, TROPHS, CBC, ADIFF, PBNP #### [address] [address] Neutrophils/100 WBC (Bld) 59.3 % Normal 37.0-80.0 [facility] Comment on above: Performed By: #### A KARLENE, MG, BMP, MDW, GFR, TROPHS, CBC, ADIFF, PBNP #### [address] [address] .GFRon 03-29-2024 GFR 61 ml/min/1.73sqm [facility] Comment on above: Result Comment: GFR Population mean for , Non- Americans Ages 20-29 = 116 mL/min/1.73 sq.m. Ages 30-39 = 107 mL/min/1.73 sq.m. Ages 40-49 = 99 mL/min/1.73 sq.m. Ages 50-59 = 93 mL/min/1.73 sq.m. Ages 60-69 = 85 mL/min/1.73 sq.m. Ages 70+ = 75 mL/min/1.73 sq.m. Chronic Kidney Disease: Less than 60 mL/min/1.73 square meters End Stage Renal Disease: Less than 15 mL/min/1.73 square meters Performed By: #### A KARLENE, MG, BMP, MDW, GFR, TROPHS, CBC, ADIFF, PBNP #### [address] [address] GFR Non- 51 ml/min/1.73sqm Normal [facility] Comment on above: Result Comment: GFR Population mean for , Non- Americans Ages 20-29 = 116 mL/min/1.73 sq.m. Ages 30-39 = 107 mL/min/1.73 sq.m. Ages 40-49 = 99 mL/min/1.73 sq.m. Ages 50-59 = 93 mL/min/1.73 sq.m. Ages 60-69 = 85 mL/min/1.73 sq.m. Ages 70+ = 75 mL/min/1.73 sq.m. Chronic Kidney Disease: Less than 60 mL/min/1.73 square meters End Stage Renal Disease: Less than 15 mL/min/1.73 square meters Performed By: #### A KARLENE, MG, BMP, MDW, GFR, TROPHS, CBC, ADIFF, PBNP #### [address] [address] .MDWon 03-29-2024 Monocyte Distribution Width 14.84 Normal 0.00-20.00 [facility] Comment on above: Result Comment: For ED adult patients suspected of sepsis, MDW<=20.0 does not rule out sepsis or risk of sepsis Performed By: #### A KARLENE, MG, BMP, MDW, GFR, TROPHS, CBC, ADIFF, PBNP #### [address] [address] .NEUABSon 03-29-2024 Neutrophil, Absolute 3.3 10 3/mcL Normal 2.9-6.2 [facility] Comment on above: Performed By: #### A KARLENE, MG, BMP, MDW, GFR, TROPHS, CBC, ADIFF, PBNP #### [address] [address] BMPon 03-29-2024 BUN/Creatinine Ratio 18 ratio Normal 7-27 [facility] Comment on above: Performed By: #### A KARLENE, MG, BMP, MDW, GFR, TROPHS, CBC, ADIFF, PBNP #### [address] [address] Calcium [Mass/Vol] 9.5 mg/dL Normal 8.4-10.2 [facility] Comment on above: Performed By: #### A KARLENE, MG, BMP, MDW, GFR, TROPHS, CBC, ADIFF, PBNP #### [address] [address] Chloride [Moles/Vol] 103 mmol/L Normal 98-107 [facility] Comment on above: Performed By: #### A KARLENE, MG, BMP, MDW, GFR, TROPHS, CBC, ADIFF, PBNP #### [address] [address] CO2 [Moles/Vol] 31 mmol/L Normal 23-31 [facility] Comment on above: Performed By: #### A KARLENE, MG, BMP, MDW, GFR, TROPHS, CBC, ADIFF, PBNP #### [address] [address] Creatinine [Mass/Vol] 1.05 mg/dL High 0.55-1.02 [facility] Comment on above: Result Comment: Test ing performed on Siemens Dimension EXL analyzer using a modified kinetic Krystal technique. Performed By: #### A KARLENE, MG, BMP, MDW, GFR, TROPHS, CBC, ADIFF, PBNP #### [address] [address] Electrolyte Balance 4.0 mEq/L Normal 4.0-15.0 [facility] Comment on above: Performed By: #### A KARLENE, MG, BMP, MDW, GFR, TROPHS, CBC, ADIFF, PBNP #### [address] [address] Glucose [Mass/Vol] 108 mg/dL Normal 83-110 [facility] Comment on above: Performed By: #### A KARLENE, MG, BMP, MDW, GFR, TROPHS, CBC, ADIFF, PBNP #### [address] [address] Potassium [Moles/Vol] 3.5 mmol/L Normal 3.5-5.1 [facility] Comment on above: Performed By: #### A KARLENE, MG, BMP, MDW, GFR, TROPHS, CBC, ADIFF, PBNP #### [address] [address] Sodium [Moles/Vol] 138 mmol/L Normal 136-145 [facility] Comment on above: Performed By: #### A KARLENE, MG, BMP, MDW, GFR, TROPHS, CBC, ADIFF, PBNP #### [address] [address] Urea nitrogen [Mass/Vol] 19 mg/dL High 7-18 [facility] Comment on above: Performed By: #### A KARLENE, MG, BMP, MDW, GFR, TROPHS, CBC, ADIFF, PBNP #### [address] [address] CBCon 03-29-2024 Erythrocyte distribution width (RBC) [Ratio] 13.5 % Normal 11.5-14.5 [facility] Comment on above: Performed By: #### A KARLENE, MG, BMP, MDW, GFR, TROPHS, CBC, ADIFF, PBNP #### [address] [address] Hematocrit (Bld) [Volume fraction] 37.7 % Normal 37.0-47.0 [facility] Comment on above: Performed By: #### A KARLENE, MG, BMP, MDW, GFR, TROPHS, CBC, ADIFF, PBNP #### [address] [address] Hgb 12.8 G/dL Normal 12.0-16.0 [facility] Comment on above: Performed By: #### A KARLENE, MG, BMP, MDW, GFR, TROPHS, CBC, ADIFF, PBNP #### [address] [address] MCH (RBC) [Entitic mass] 30.7 pg Normal 27.0-31.2 [facility] Comment on above: Performed By: #### A KARLENE, MG, BMP, MDW, GFR, TROPHS, CBC, ADIFF, PBNP #### [address] [address] MCHC 33.9 G/dL Normal 33.0-37.0 [facility] Comment on above: Performed By: #### A KARLENE, MG, BMP, MDW, GFR, TROPHS, CBC, ADIFF, PBNP #### [address] [address] MCV (RBC) [Entitic vol] 90.5 fL Normal 80.0-94.0 [facility] Comment on above: Performed By: #### A KARLENE, MG, BMP, MDW, GFR, TROPHS, CBC, ADIFF, PBNP #### [address] [address] Platelet 244 10 3/mcL Normal 130-400 [facility] Comment on above: Performed By: #### A KARLENE, MG, BMP, MDW, GFR, TROPHS, CBC, ADIFF, PBNP #### [address] [address] Platelet mean volume (Bld) [Entitic vol] 8.3 fL Normal 7.4-10.4 [facility] Comment on above: Performed By: #### A KARLENE, MG, BMP, MDW, GFR, TROPHS, CBC, ADIFF, PBNP #### [address] [address] RBC 4.16 10 6/mcL Low 4.20-5.40 [facility] Comment on above: Performed By: #### A KARLENE, MG, BMP, MDW, GFR, TROPHS, CBC, ADIFF, PBNP #### [place] [id number] WBC 5.6 10 3/mcL Normal 4.6-10.8 [facility] Comment on above: Performed By: #### A KARLENE, MG, BMP, MDW, GFR, TROPHS, CBC, ADIFF, PBNP #### [place] [address] LABORATORYOrdered By: SYSTEM SYSTEM on 03-29-2024 Troponin I.cardiac DL <= 0.01 ng/mL [Mass/Vol] 7 ng/L Normal 0 - 51 ng/L AO ADM SS Comment on above: Interpretive Data: H igh Sensitive Troponin I Reference Ranges: Female: 0-51 ng/L Male: 0-76 ng/L Testing performed on [employer] EXL using a homogeneous sandwich chemiluminescent immunoassay based on [employer] technology. Basophils (Bld) [#/Vol] 0.0 103/mcL Normal 0.0 - 0.2 10^3/mcL AO Workflow SS Basophils/100 WBC (Bld) 0.9 % Normal 0.0 - 2.5 % AO Workflow SS Calcium [Mass/Vol] 9.5 mg/dL Normal 8.4 - 10. 2 mg/dL AO ADM SS Chloride [Moles/Vol] 103 mmol/L Normal 98 - 10 7 mmol/L AO ADM SS CO2 [Moles/Vol] 31 mmol/L Normal 23 - 31 mmol/L AO ADM SS Creatinine [Mass/Vol] 1.05 mg/dL High 0.55 - 1.02 mg/dL AO ADM SS Comment on above: Interpretive Data: T esting performed on Siemens Dimension EXL analyzer using a modified kinetic Krystal technique. Electrolyte Balance 4.0 mEq/L Normal 4.0 - 15 .0 mEq/L AO ADM SS Eosinophil, Absolute 0.4 103/mcL Normal 0.0 - 0 .4 10^3/mcL AO Workflow SS Eosinophils/100 WBC (Bld) 7.4 % High 0.0 - 7.0 % AO Workflow SS Erythrocyte distribution width (RBC) [Ratio] 13.5 % Normal 11.5 - 14.5 % AO Workflow SS GFR/1.73 sq M.predicted among blacks MDRD (S/P/Bld) [Vol rate/Area] 61 ml/min/1.73sqm Invalid Interpretation Code AO Chemistry S Comment on above: Interpretive Data: GFR Population mean for , Non- Americans Ages 20-29 = 116 mL/min/1.73 sq.m. Ages 30-39 = 107 mL/min/1.73 sq.m. Ages 40-49 = 99 mL/min/1.73 sq.m. Ages 50-59 = 93 mL/min/1.73 sq.m. Ages 60-69 = 85 mL/min/1.73 sq.m. Ages 70+ = 75 mL/min/1.73 sq.m. Chronic Kidney Disease: Less than 60 mL/min/1.73 square meters End Stage Renal Disease: Less than 15 mL/min/1.73 square meters GFR/1.73 sq M.predicted among non-blacks MDRD (S/P/Bld) [Vol rate/Area] 51 ml/min/1.73sqm Invalid Interpretation Code AO Chemistry S Comment on above: Interpretive Data: GFR Population mean for , Non- Americans Ages 20-29 = 116 mL/min/1.73 sq.m. Ages 30-39 = 107 mL/min/1.73 sq.m. Ages 40-49 = 99 mL/min/1.73 sq.m. Ages 50-59 = 93 mL/min/1.73 sq.m. Ages 60-69 = 85 mL/min/1.73 sq.m. Ages 70+ = 75 mL/min/1.73 sq.m. Chronic Kidney Disease: Less than 60 mL/min/1.73 square meters End Stage Renal Disease: Less than 15 mL/min/1.73 square meters Glucose [Mass/Vol] 108 mg/dL Normal 83 - 110 mg/dL AO ADM SS Hematocrit (Bld) [Volume fraction] 37.7 % Normal 37.0 - 47.0 % AO Workflow SS Hemoglobin (Bld) [Mass/Vol] 12.8 G/dL Normal 12.0 - 16.0 G/dL AO Workflow SS Lymphocytes (Bld) [#/Vol] 1.6 103/mcL Normal 0.8 - 3.9 10^3/mcL AO Workflow SS Lymphocytes/100 WBC (Bld) 28.9 % Normal 10.0 - 50.0 % AO Workflow SS Magnesium [Mass/Vol] 1.9 mg/dL Normal 1.8 - 2 .4 mg/dL AO ADM SS MCH (RBC) [Entitic mass] 30.7 pg Normal 27.0 - 31.2 pg AO Workflow SS MCHC 33.9 G/dL Normal 33.0 - 37.0 G/dL AO Workflow SS MCV (RBC) [Entitic vol] 90.5 fL Normal 80.0 - 94.0 fL AO Workflow SS Monocyte distribution width Auto (Bld) [Entitic vol] 14.84 1 Normal 0.00 - 20.00 AO Workflow SS Comment on above: Result Comment: For ED adult patients suspected of sepsis, MDW<=20.0 does not rule out sepsis or risk of sepsis Monocytes (Bld) [#/Vol] 0.2 103/mcL Normal 0.2 - 1.0 10^3/mcL AO Workflow SS Monocytes/100 WBC (Bld) 3.5 % Normal 1.7 - 13.0 % AO Workflow SS Natriuretic peptide.B prohormone N-Terminal [Mass/Vol] 67 pg/mL Normal 0 - 450 pg/mL AO ADM SS Comment on above: Interpretive Data: N T-proBNP results of less than 300 pg/mL effectively rules out acute congestive heart failure with 99% negative predictive value. Neutrophils (Bld) [#/Vol] 3.3 103/mcL Normal 2.9 - 6.2 10^3/mcL AO Workflow SS Neutrophils/100 WBC (Bld) 59.3 % Normal 37.0 - 80.0 % AO Workflow SS Platelet mean volume (Bld) [Entitic vol] 8.3 fL Normal 7.4 - 10.4 fL AO Workflow SS Platelets (Bld) [#/Vol] 244 103/mcL Normal 130 - 400 10^3/mcL AO Workflow SS Potassium [Moles/Vol] 3.5 mmol/L Normal 3.5 - 5.1 mmol/L AO ADM SS RBC (Bld) [#/Vol] 4.16 106/mcL Low 4.20 - 5.4 0 10^6/mcL AO Workflow SS Sodium [Moles/Vol] 138 mmol/L Normal 136 - 145 mmol/L AO ADM SS Troponin I.cardiac DL <= 0.01 ng/mL [Mass/Vol] 7 ng/L Normal 0 - 51 ng/L AO ADM SS Comment on above: Interpretive Data: H igh Sensitive Troponin I Reference Ranges: Female: 0-51 ng/L Male: 0-76 ng/L Testing performed on Cuff-Protect using a homogeneous sandwich chemiluminescent immunoassay based on Nextnav technology. Urea nitrogen [Mass/Vol] 19 mg/dL High 7 - 18 mg/dL AO ADM SS Urea nitrogen/Creatinine [Mass ratio] 18 ratio Normal 7 - 27 ratio AO ADM SS WBC (Bld) [#/Vol] 5.6 103/mcL Normal 4.6 - 10.8 10^3/mcL AO Workflow SS MGon 03-29-2024 Magnesium [Mass/Vol] 1.9 mg/dL Normal 1.8-2.4 [facility] Comment on above: Performed By: #### A KARLENE, MG, BMP, MDW, GFR, TROPHS, CBC, ADIFF, PBNP #### [address] [address] PBNPon 03-29-2024 Natriuretic peptide B (Bld) [Mass/Vol] 67 pg/mL Normal 0-450 [facility] Comment on above: Result Comment: NT-p roBNP results of less than 300 pg/mL effectively rules out acute congestive heart failure with 99% negative predictive value. Performed By: #### A KARLENE, MG, BMP, MDW, GFR, TROPHS, CBC, ADIFF, PBNP #### [address] [address] TROPHSon 03-29-2024 High Sensitivity Troponin I 7 ng/L Normal 0-51 [facility] Comment on above: Order Comment: Send repeat troponin at 230 Result Comment: High Sensitive Troponin I Reference Ranges: Female: 0-51 ng/L Male: 0-76 ng/L Testing performed on Dimension EXL using a homogeneous sandwich chemiluminescent immunoassay based on Nextnav technology. Performed By: #### T [facility] #### [address] [address] High Sensitivity Troponin I 7 ng/L Normal 0-51 [facility] Comment on above: Result Comment: High Sensitive Troponin I Reference Ranges: Female: 0-51 ng/L Male: 0-76 ng/L Testing performed on Dimension EXL using a homogeneous sandwich chemiluminescent immunoassay based on Nextnav technology. Performed By: #### A KARLENE, MG, BMP, MDW, GFR, TROPHS, CBC, ADIFF, PBNP #### [address] [address] XR CHEST 1 VIEWon 03-29-2024 XR CHEST 1 VIEW ORIGINAL EXAMINATION: ONE XRAY VIEW OF THE CHEST 03/29/2024 1:44 pm COMPARISON: 06/13/2020 HISTORY: ORDERING SYSTEM PROVIDED HISTORY: Reason for Exam: chest pain FINDINGS: Stable cardiomediastinal silhouette accounting for differences in projection and technique. Low lung volumes. No consolidation, pleural effusion, or visible pneumothorax. Degenerative changes of the spine. IMPRESSION: Low lung volumes. No acute radiographic abnormality. I have personally reviewed the images of this examination and agree with the resident's findings and interpretation. Interpreted by: Shawn Cifuentes DO Preliminary Report By: Nikhil Hutchinson Electronically signed By Shawn Cifuentes DO Dictated Date: 03/29/2024 1:53:47 PM Prelim Date: 03/29/2024 1:54:59 PM Sign Date: 03/29/2024 2:28:06 PM Ordering Provider: PARVEZ Garcia [facility] Internal Medicine Office Vis itoverito 03-11-2024 Internal Medicine Office Visit [facility] [address] [place] [address] [place] [address] OFFICE VISIT Date of Service: 03/11/24 MR#: [id number] Acct: [id number] Name: DAVID HUBBARD Rep #: [id number] : 1945 Provider: Dr. 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 Is patient in pain?: No Allergies Seasonal Allergies: Uncoded Allergy (Mild, Verified 03/11/24 13:21) nasal drainage Medications ???Medication ???Instructions ???Recorded ???Confirmed ???Type montelukast 5 mg chewable tablet 10 mg PO DAILY 06/29/18 03/11/24 History (Singulair) albuterol sulfate 90 mcg/actuation 2 puff inhalation Q6H PRN 04/11/22 03/11/24 History aerosol inhaler budesonide 160 mcg-glycopyr 9 2 inh inhalation BID 04/11/22 03/11/24 History mcg-formot 4.8 mcg/actuation HFA inhaler (Breztri Aerosphere) cetirizine 10 mg tablet (Zyrtec) 10 mg PO DAILY PRN 04/11/22 03/11/24 History multivitamin 1 tab PO DAILY 04/11/22 03/11/24 History prevagen PO 04/11/22 03/11/24 History meclizine 25 mg tablet 25 mg PO BID PRN vertigo #120 tabs 12/03/22 03/11/24 Rx atorvastatin 40 mg tablet 40 mg PO DAILY #90 tabs 01/13/24 03/11/24 Rx hydrochlorothiazide 25 mg tablet See Rx Instructions .Route 01/27/24 03/11/24 Rx .COMPLEX #90 tabs meloxicam 15 mg tablet See Rx Instructions .Route 03/06/24 03/11/24 Rx .COMPLEX #30 tabs Have you fallen in the past year?: No PFSH Medical History Elevated liver enzymes TIA (transient ischemic attack) Left buttock pain Anemia Chronic back pain Vertigo Osteoarthritis Cataracts, bilateral Osteopenia Allergy-induced asthma Patent foramen ovale Essential hypertension GERD (gastroesophageal reflux disease) SOB (shortness of breath) on exertion Seasonal allergies Knee pain Chest pain Fatigue Shortness of breath Arthritis Surgical History History of carpal tunnel release History of arthroscopy of right knee History of right breast biopsy History of tubal ligation Family History Sister Diabetes Brother CAD (coronary artery disease) Cardiac pacemaker in situ Asthma Sister Diabetes Heart disease Mother Hypertension Thyroid disorder Social History Smoking Status: Never smoker alcohol intake: never substance use type: does not use HPI HPI 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: Follow-up chronic conditions Details: DAVID HUBBARD, is a 78 F who presents to the office today for follow-up of her chronic conditions. No acute concerns at this time. Recently had labs for liver function which showed elevated liver enzymes. Recently started on atorvastatin due to concern for TIA. She also states that she has been taking a herbal supplement. Feels well. Denies alcohol use. Other chronic medical conditions are stable. Pressure today at 120/70 mmHg. Currently on hydrochlorothiazide which she is taking as prescribed. No chest pain, palpitation or shortness of breath. ROS Const Constitutional: No body ache, chills, excessive sweating, fatigue, fever(s), frequent falls, headache(s), snoring, weakness, sleep problems or change in appetite Eyes Eyes: No blurry vision, change in vision, eye pain or Light sensitivity ENT ENT: No abnormal hearing, ear or mastoid pain, tinnitus, nasal congestion, headache(s), neck pain or sore throat Resp Respiratory: No cough, shortness of breath, snoring or wheezing Cardio Cardiology: No chest pain at rest, chest pain with exertion, excessive sweating, shortness of breath, dyspnea on exertion, lightheadedness, orthopnea or palpitations Gastro GI: No abdominal pain, change in bowel habits, constipation, cramping, diarrhea, nausea/dyspepsia or vomiting Genitourinary-Female: No burning urination, painful urination, urinary incontinence, urinary frequency, abnormal vaginal bleeding or pelvic pain Musc Musculoskeletal: No abnormal gait, joint pain, back pain, limited range of motion, neck pain or numbness Skin Skin: No dry skin, redness, lesions, itchy eyes, rash or wounds Neuro Neurology: No abnormal gait, abnormal hearing, weakness, frequent falls, he (more content not included)... Normal [facility] L501.5101on 03-06-2024 GGTP 223 IU/L Abnormal 0-60 [facility] Comment on above: Result Comment: Perf ormed at: - [facility] [id number] Public Affairs Specialist: Tyler Ortega PhD, Phone: [phone] Performed By: #### L 695.3099 #### [facility] [address] [place], [address] CBC W/Diff, Automatedon 02-13 Absolute Lymph 1.39 X10 3/uL Normal 0.83-4.51 [facility] Comment on above: Performed By: #### L 132.0629 #### [facility] [address] [place], [place], [id number] Absolute Neut 2.1 X10 3/uL Normal 2.0-7.7 [facility] Comment on above: Performed By: #### L 501.5101 #### [facility] [address] [place], [address] Basophils/100 WBC (Bld) 1.4 % High 0-1 [facility] Comment on above: Performed By: #### L 501.5101 #### [facility] [address] [place], [address] Eosinophils/100 WBC (Bld) 12.7 % High 0-5 [facility] Comment on above: Performed By: #### L 501.5101 #### [facility] [address] [place], [address] Erythrocyte distribution width (RBC) [Ratio] 12.7 % Normal 11.6-14.6 [facility] Comment on above: Performed By: #### L 501.5101 #### [facility] [address] [place], [address] Hematocrit (Bld) [Volume fraction] 36.2 % Low 37-47 [facility] Comment on above: Performed By: #### L 501.5101 #### [facility] [address] [place], [address] Hemoglobin (Bld) [Mass/Vol] 11.8 g/dL Low 12.0-15.0 [facility] Comment on above: Performed By: #### L 501.5101 #### [facility] [address] [place], [address] IG% 0.200 Normal 0.0-0.9 [facility] Comment on above: Result Comment: IG% - Immature Granulocytes (promyelocytes, myelocytes and metamyelocytes) > 1% indicates that a LEFT SHIFT is Present. Performed By: #### L 501.5101 #### [facility] [address] [place], [address] Lymphocytes/100 WBC (Bld) 31.4 % Normal 19-41 [facility] Comment on above: Performed By: #### L 501.5101 #### [facility] [address] [place], [address] MCH (RBC) [Entitic mass] 29.8 pg Normal 27.0-32.0 [facility] Comment on above: Performed By: #### L 501.5101 #### [facility] [address] [place], [address] MCHC (RBC) [Mass/Vol] 32.6 g/dL Normal 32-36 [facility] Comment on above: Performed By: #### L 501.5101 #### [facility] [address] [place], [address] MCV (RBC) [Entitic vol] 91.4 fL Normal 81-99 [facility] Comment on above: Performed By: #### L 501.5101 #### [facility] [address] [place], [address] Monocytes/100 WBC (Bld) 6.8 % Normal 0-10 [facility] Comment on above: Performed By: #### L 501.5101 #### [facility] [address] [place], [address] Neutrophils/100 WBC (Bld) 47.5 % Normal 47-70 [facility] Comment on above: Performed By: #### L 501.5101 #### [facility] [address] [place], [address] Nucleated RBC (Bld) [#/Vol] 0 10*3/uL Normal 0-5 [facility] Comment on above: Performed By: #### L 501.5101 #### [facility] [address] [place], [address] Platelet mean volume (Bld) [Entitic vol] 10.8 fL Normal 6.2-12.0 [facility] Comment on above: Performed By: #### L 501.5101 #### [facility] [address] [place], [address] Platelets (Bld) [#/Vol] 233 10*3/uL Normal 150-450 [facility] Comment on above: Performed By: #### L 501.5101 #### [facility] [address] [place], [address] RBC (Bld) [#/Vol] 3.96 10*6/uL Low 4.2-5.4 [facility] Comment on above: Performed By: #### L 501.5101 #### [facility] [address] [place], [address] RDW SD 42.5 fl Normal 35.1-43.9 [facility] Comment on above: Performed By: #### L 501.5101 #### [facility] [address] [place], [address] WBC (Bld) [#/Vol] 4.4 10*3/uL Normal 4.4-11.0 [facility] Comment on above: Performed By: #### L 501.5101 #### [facility] [address] [place], [address] Comprehensive Metabolic Prof [facility] 03-04-2024 Albumin [Mass/Vol] 3.7 g/dL Normal 3.2-5.0 [facility] Comment on above: Performed By: #### L 501.5101 #### [facility] [address] [place], [address] Albumin/Globulin [Mass ratio] 0.9 {ratio} Normal 0.9-2.4 [facility] Comment on above: Performed By: #### L 501.5101 #### [facility] [address] [place], [address] ALK P 239 U/L High 45-117 [facility] Comment on above: Performed By: #### L 501.5101 #### [facility] [address] [place], [address] ALT [Catalytic activity/Vol] 115 U/L High 13-56 [facility] Comment on above: Performed By: #### L 501.5101 #### [facility] [address] [place], [address] AST [Catalytic activity/Vol] 63 U/L High 15-37 [facility] Comment on above: Performed By: #### L 501.5101 #### [facility] [address] [place], [address] Bilirubin [Mass/Vol] 0.60 mg/dL Normal 0.20-1.00 [facility] Comment on above: Result Comment: For patients on eltrombopag therapy, use of Dimension [place] TBIL is not recommended. Performed By: #### L 501.5101 #### [facility] [address] [place], [address] BUN/CRE 19.9 RATIO Normal 10-20 [facility] Comment on above: Performed By: #### L 501.5101 #### [facility] [address] [place], [address] CA,Total 9.4 mg/dL Normal 8.5-10.1 [facility] Comment on above: Performed By: #### L 501.5101 #### [facility] [address] [place], [address] Chloride [Moles/Vol] 106 mmol/L Normal 98-107 [facility] Comment on above: Performed By: #### L 501.5101 #### [facility] [address] [place], [address] CO2 [Moles/Vol] 27.0 mmol/L Normal 21.0-32.0 [facility] Comment on above: Performed By: #### L 501.5101 #### [facility] [address] [place], [address] Creatinine [Mass/Vol] 0.96 mg/dL Normal 0.55-1.02 [facility] Comment on above: Result Comment: The validity of the calculated GFR GFRAA in patients over 70 years has not been determined. Clinical correlation is essential. Performed By: #### L 501.5101 #### [facility] [address] [place], [address] EST GFR - AA 73 mL/min Normal >60 [facility] Comment on above: Result Comment: Afri can Egyptian GFR Calc Performed By: #### L 501.5101 #### [facility] [address] [place], [address] GAP 5 Normal 5-15 [facility] Comment on above: Performed By: #### L 501.5101 #### [facility] [address] [place], [address] GFR/1.73 sq M.predicted among non-blacks MDRD (S/P/Bld) [Vol rate/Area] 60 mL/min/{1.73_m2} Normal >60 [facility] Comment on above: Result Comment: Non- GFR Calc Performed By: #### L 501.5101 #### [facility] [address] [place], [address] Globulin (S) [Mass/Vol] 3.9 g/dL Normal 2.2-4.2 [facility] Comment on above: Performed By: #### L 501.5101 #### [facility] [address] [place], [address] Glucose [Mass/Vol] 77 mg/dL Normal 74-106 [facility] Comment on above: Performed By: #### L 501.5101 #### [facility] [address] [place], [address] Potassium [Moles/Vol] 4.2 mmol/L Normal 3.5-5.1 [facility] Comment on above: Performed By: #### L 501.5101 #### [facility] [address] [place], [address] Sodium [Moles/Vol] 138 mmol/L Normal 136-145 [facility] Comment on above: Performed By: #### L 501.5101 #### [facility] [address] [place], [address] T PROT 7.6 g/dL Normal 6.4-8.2 [facility] Comment on above: Performed By: #### L 501.5101 #### [facility] [address] [place], [address] Urea nitrogen [Mass/Vol] 19 mg/dL High 7-18 [facility] Comment on above: Performed By: #### L 501.5101 #### [facility] [address] [place], [address] Echo Completeon 02-05-2024 Echo Complete [facility] [address] [place] [address] Echo Complete 02/05/24 1419 MR#: [id number] Acct: [id number] Name: DAVID HUBBARD Rep #: [id number] : 1945 78 From: Michael Tamayo MD Attending Dr: Dr. Bronson Bynum MD Status: REG CLI Ordering Dr: Bronson Bynum MD Date: 02/05/24 Location: CVS Sex: F AA Admitted: Reason For Study: TIA/CVA Procedure This was a 2D Doppler, Color Flow transthoracic echocardiogram. Exam performed in department. Left Ventricle Normal LV size. Mid cavitary false tendon noted. Left ventricular systolic function is normal. The left ventricular ejection fraction is 65 %. Stage 1 diastolic dysfunction. No regional wall motion abnormalities noted. Right Ventricle Normal RV size. Normal systolic function. Atria Normal left atrium. Normal right atrium. Mitral Valve Normal mitral valve. Tricuspid Valve Normal tricuspid valve. Mild (1+) tricuspid valve insufficiency. Pulmonary artery systolic pressure is 30 mmHg. Aortic Valve Trisinus/trileaflet aortic valve. Pulmonic Valve Normal pulmonic valve. Great Vessels Normal aortic root. The pulmonary artery is normal size. Normal inferior vena cava. Pericardium/Pleural No pericardial effusion. MMode/2D Measurements Calculations LVIDd: 4.4 cm IVSd: 1.1 cm LVOT diam: 2.1 cm LVIDs: 2.4 cm LVPWd: 1.1 cm LVOT area: 3.4 cm2 FS: 46.3 % Ao root diam: 2.9 cm LAV(MOD-bp): 54.9 ml LVAd ap4: 23.3 cm2 LAV(MOD-bp) Indexed: 28.0 ml/m2 LVLd ap4: 7.0 cm LAV(MOD-sp2): 41.7 ml EDV(MOD-sp4): 63.9 ml LAV(MOD-sp4): 56.9 ml EDV(sp4-el): 65.9 ml LVAs ap4: 10.9 cm2 LVLs ap4: 5.2 cm ESV(MOD-sp4): 19.7 ml ESV(sp4-el): 19.2 ml EF(MOD-sp4): 69.2 % EF(sp4-el): 70.8 % SV(MOD-sp4): 44.2 ml SV(sp4-el): 46.7 ml LA A4 area: 20.0 cm2 RA A4 area: 14.5 cm2 TAPSE: 2.2 cm Time Measurements MV dec time: 0.21 sec Doppler Measurements Calculations MV E max flakita: 89.4 cm/sec Lat Peak E' Flakita: 11.0 cm/sec Med Peak E' Flakita: 9.6 cm/sec MV A max flakita: 115.9 cm/sec E/E' lat: 8.1 E/E' med: 9.3 MV E/A: 0.77 Ao V2 max: 149.2 cm/sec LV V1 max: 136.4 cm/sec MV dec slope: 425.4 cm/sec2 Ao max P.9 mmHg LV V1 max P.4 mmHg Ao V2 mean: 102.2 cm/sec LV V1 mean P.0 mmHg Ao mean P.7 mmHg LV V1 mean: 93.2 cm/sec Ao V2 VTI: 37.7 cm LV V1 VTI: 34.4 cm AV (velocity ratio): 0.91 JULIO(I,D): 3.1 cm2 JULIO(V,D): 3.1 cm2 SV(LVOT): 117.5 ml PA V2 max: 91.9 cm/sec PI end-d flakita: 76.6 cm/sec PA max PG (full): 0.57 mmHg TR max flakita: 260.0 cm/sec TR max P.0 mmHg ECHO/Echo Complete Interpretation Summary Normal LV size. Left ventricular systolic function is normal. The left ventricular ejection fraction is 65 %. Mid cavitary false tendon noted. Stage 1 diastolic dysfunction. Ordering Physician: Bronson Bynum Referring Physician: Bronson Bynum Performed By: Theron RM RD, Billie and Student 02/05/24 1529 Date Michael Tamayo MD CC: Dr. Bronson Bynum MD Date Dictated: 02/05/24 1419 Date Transcribed: 02/05/241528 Program Writer: Signed Normal [facility] PT D/C Summary (1)on 024 PT D/C Summary (1) [facility] Physical Therapy [facility] [place] [address] / REHABILITATION SERVICES DISCHARGE SUMMARY MR#: [id number] Acct: [id number] Name: DAVID HUBBARD Rep #: [id number] : 1945 78 From: Rupa HART Referring Dr.: Dr. Bronson Bynum MD Status: REG RCR Insurance: MEDICARE PART A B [facility] Discharge Summary D/C summary: It has been my pleasure to treat DAVID HUBBARD referred by Dr. Bronson Bynum MD, with the diagnosis of L buttock pain, SI Joint pain, myalgia for a total of 5 visit(s). Discharge Date: 01/22/24 Please see the following information for a summary of their discharge status. Subjective Subjective: She had COVID again and went into the hospital and is wearing a monitor. She is still SOB. She is still tired. Stretching really helps. It does not ache like it used too. Pain back pain: Pain Intensity (Out of 10): 3 L hip pain: Pain Intensity (Out of 10): 3 Overall Improvement % Improvement: 90 Objective Objective/Function: Pt met all goals and has full understanding of HEP (see above) Goals Goal 1:: I HEP Goal Progress: Goal Met Goal 2:: No pain with stretching the L piriformis Goal Progress: Goal Met Goal 3:: No more grabbing pain with ADL's Goal Progress: Goal Met Plan Plan: DC PT to HEP D/C Information Discharge Comments: DC PT to HEP d/c sentence: If there are questions or concerns regarding this patient's physical therapy, please feel free to call me at [phone]. Thank you for the referral of this patient. Sincerely, HAILEY Bassett Balance/Gait/Function al tests Balance/Special Test Scores Lower Extremity Functional Score: 58 Improvement % Improvement: 90 01/22/24 1259 CC: Dr. Bronson Bynum MD Signed Normal [facility] Internal Medicine Office Vis etelvina 01-13-2024 Internal Medicine Office Visit [facility] [place] [address] [place] [address] OFFICE VISIT Date of Service: 01/13/24 MR#: [id number] Acct: [id number] Name: DAVID HUBBARD Rep #: [id number] : 1945 Provider: Dr. Bronson murry MD Age/Sex: 78/F Location[place] [facility] Status: Signed Intake Vital Signs 11/27/23 13:46 01/13/24 09:22 Height 5 ft 8 in 5 ft 8 in Weight: 183 lb BMI 27.8 BP 124/68 H Blood Pressure Location Lt brachial Position Sitting Respiration 17 Pulse 68 Pulse Source Monitor Temp 96.8 F L Temp Source Temporal Pulse Oximetry (%) 98 Oxygen Delivery Method room air Intake Visit Reasons: TEODORA MORALEZ 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: Clarissa MORALEZ Is patient in pain?: No Allergies Seasonal Allergies: Uncoded Allergy (Mild, Verified 01/13/24 09:21) nasal drainage Medications ???Medication ???Instructions ???Recorded ???Confirmed ???Type montelukast 5 mg chewable tablet 10 mg PO DAILY 06/29/18 01/13/24 History (Singulair) albuterol sulfate 90 mcg/actuation 2 puff inhalation Q6H PRN 04/11/22 01/13/24 History aerosol inhaler budesonide 160 mcg-glycopyr 9 2 inh inhalation BID 04/11/22 01/13/24 History mcg-formot 4.8 mcg/actuation HFA inhaler (Breztri Aerosphere) cetirizine 10 mg tablet (Zyrtec) 10 mg PO DAILY PRN 04/11/22 01/13/24 History multivitamin 1 tab PO DAILY 04/11/22 01/13/24 History prevagen PO 04/11/22 01/13/24 History meclizine 25 mg tablet 25 mg PO BID PRN vertigo #120 tabs 12/03/22 01/13/24 Rx hydrochlorothiazide 25 mg tablet See Rx Instructions .Route 07/23/23 01/13/24 Rx .COMPLEX #90 tabs meloxicam 15 mg tablet See Rx Instructions .Route 11/27/23 01/13/24 Rx .COMPLEX #30 tabs atorvastatin 40 mg tablet 40 mg PO DAILY #90 tabs 01/13/24 01/13/24 Rx cephalexin 500 mg capsule 500 mg PO .QID 01/13/24 01/13/24 History Have you fallen in the past year?: No Nurse's Note: [place] [facility] Medical History (Updated 01/13/24 @ 09:[address] Bronson Bynum MD) TIA (transient ischemic attack) Left buttock pain Anemia Chronic back pain Vertigo Osteoarthritis Cataracts, bilateral Osteopenia Allergy-induced asthma Patent foramen ovale Essential hypertension GERD (gastroesophageal reflux disease) SOB (shortness of breath) on exertion Seasonal allergies Knee pain Chest pain Fatigue Shortness of breath Arthritis Surgical History History of carpal tunnel release History of arthroscopy of right knee History of right breast biopsy History of tubal ligation Family History Sister Diabetes Brother CAD (coronary artery disease) Cardiac pacemaker in situ Asthma Sister Diabetes Heart disease Mother Hypertension Thyroid disorder Social History Smoking Status: Never smoker alcohol intake: never substance use type: does not use HPI HPI 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: Clarissa Mccord FU Details: DAVID HUBBARD, is a 78 F who presents to the office today for follow-up recent ER visit. Presented to the emergency room due to numbness and tingling of her right upper extremity. This had improved but not completely resolved at the time of her ER visit however, within 24 hours, completely resolved. She states that she had a CAT scan which did not show any acute concerns. Was discharged home. No prior/similar history in the past. History of hypertension which for the most part has been well-controlled. No shoulder or back pain/neck pain reported. Other chronic conditions are largely stable. ROS Const Constitutional: No body ache, chills, excessive sweating, fatigue, fever(s), frequent falls, headache(s), snoring, weight change, sleep problems, abnormal sleep pattern or change in appetite Eyes Eyes: No blurry vision, change in vision, bulging eyes, floaters, visual disturbances, eye pain or Light sensitivity ENT ENT: No abnormal hearing, ear or mastoid pain, tinnitus, balance problems, nosebleed/epistaxis, nasal congestion, headache(s), neck pain or sore throat Resp Respiratory: Positive for other (cough ); No cough, excessive phlegm production, pain on inspiration, shortness of breath, snoring or wheezing Cardio Cardiology: No chest pain at rest, chest pain with exertion, excessive sweating, shortness of breath, dyspnea on exertion, lightheadedness, orthopnea or palpitations Gastro GI: No abdominal pain, change in bowel habits, constipation, cramping, diarrhea, nausea/dyspepsia or vomiting Genitourinary-Female: No burning urination, painful urination, urinary incontinence, urinary frequency, suprapubic fullness, side pain, abnormal vaginal bleeding or pelvic pa (more content not included)... Normal [facility] .GFRon 01-09-2024 GFR 65 ml/min/1.73sqm Normal [facility] ([place]) Comment on above: Result Comment: GFR Population mean for , Non- Americans Ages 20-29 = 116 mL/min/1.73 sq.m. Ages 30-39 = 107 mL/min/1.73 sq.m. Ages 40-49 = 99 mL/min/1.73 sq.m. Ages 50-59 = 93 mL/min/1.73 sq.m. Ages 60-69 = 85 mL/min/1.73 sq.m. Ages 70+ = 75 mL/min/1.73 sq.m. Chronic Kidney Disease: Less than 60 mL/min/1.73 square meters End Stage Renal Disease: Less than 15 mL/min/1.73 square meters Performed By: #### M ORPH, CBC, BMP, MDW, DIFF, GFR #### [id number] [place], [place] [address] GFR Non- 54 ml/min/1.73sqm Normal [facility] ([place]) Comment on above: Result Comment: GFR Population mean for , Non- Americans Ages 20-29 = 116 mL/min/1.73 sq.m. Ages 30-39 = 107 mL/min/1.73 sq.m. Ages 40-49 = 99 mL/min/1.73 sq.m. Ages 50-59 = 93 mL/min/1.73 sq.m. Ages 60-69 = 85 mL/min/1.73 sq.m. Ages 70+ = 75 mL/min/1.73 sq.m. Chronic Kidney Disease: Less than 60 mL/min/1.73 square meters End Stage Renal Disease: Less than 15 mL/min/1.73 square meters Performed By: #### M ORPH, CBC, BMP, MDW, DIFF, GFR #### [place] [address] .MDWon 01-09-2024 Monocyte Distribution Width 22.23 High 0.00-20.00 [facility] ([place]) Comment on above: Result Comment: For adults in ED, MDW>20.0 may be associated with a higher risk of sepsis during the first 12hrs of hospital admission Performed By: #### M ORPH, CBC, BMP, MDW, DIFF, GFR #### [place] [address] .Manual Diffon 01-09-2024 Bands 4.0 % Normal 0.0-5.0 [facility] ([place]) Comment on above: Performed By: #### M ORPH, CBC, BMP, MDW, DIFF, GFR #### [place] [address] Basophil %, Manual 0.0 % Normal 0.0-2.5 [facility] ([place]) Comment on above: Performed By: #### M ORPH, CBC, BMP, MDW, DIFF, GFR #### [place] [address] Basophil, Abs Manual 0.0 10 3/mcL Normal 0.0-0.2 [facility] ([place]) Comment on above: Performed By: #### M ORPH, CBC, BMP, MDW, DIFF, GFR #### [place] [address] Eosinophil %, Manual 0.0 % Normal 0.0-7.0 [facility] ([place]) Comment on above: Performed By: #### M ORPH, CBC, BMP, MDW, DIFF, GFR #### [place] [address] [place], [place] [address] Eosinophil, Abs Manual 0.0 10 3/mcL Normal 0.0-0.4 [facility] ([place] Comment on above: Performed By: #### M ORPH, CBC, BMP, MDW, DIFF, GFR #### [address] [address] Lymphocyte %, Manual 32.0 % Normal 10.0-50.0 [facility] ([place]) Comment on above: Performed By: #### M ORPH, CBC, BMP, MDW, DIFF, GFR #### [address] [address] Lymphocyte, Abs Manual 0.8 10 3/mcL Normal 0.8-3.9 [facility] ([place] Comment on above: Performed By: #### M ORPH, CBC, BMP, MDW, DIFF, GFR #### [address] [address] Monocyte %, Manual 0.0 % Low 1.7-13.0 [facility] ([place] Comment on above: Performed By: #### M ORPH, CBC, BMP, MDW, DIFF, GFR #### [address] [address] Monocyte, Abs Manual 0.0 10 3/mcL Low 0.2-1.0 [facility] ([place]) Comment on above: Performed By: #### M ORPH, CBC, BMP, MDW, DIFF, GFR #### [address] [address] Neutrophil %, Manual 64.0 % Normal 37.0-80.0 [facility] ([place]) Comment on above: Performed By: #### M ORPH, CBC, BMP, MDW, DIFF, GFR #### [address] [address] Neutrophil, Abs Manual 1.7 10 3/mcL Low 2.9-6.2 [facility] ([place] Comment on above: Performed By: #### M ORPH, CBC, BMP, MDW, DIFF, GFR #### [place] [address] Nucleated RBC 0.0 /100 WBC Normal [facility] ([place]) Comment on above: Performed By: #### M ORPH, CBC, BMP, MDW, DIFF, GFR #### [address] [address] .Morphon 01-09-2024 Platelet Estimate Normal Normal [facility]) Comment on above: Performed By: #### M ORPH, CBC, BMP, MDW, DIFF, GFR #### [address] [address] .Urinalysis Microscopic (AO) on 01-09-2024 UA Mucous 1+ /hpf Normal [facility] ([place]) Comment on above: Performed By: #### U AMICAO, UA #### [place] [address] UA RBC 10-15 Abnormal None Seen [facility] ([place] Comment on above: Performed By: #### U AMICAO, UA #### [address] [address] UA Squam Epithelial 0-5 Abnormal None Seen [facility] ([place]) Comment on above: Performed By: #### U AMICAO, UA #### [address] [address] UA WBC 15-25 Abnormal None Seen [facility] ([place] Comment on above: Performed By: #### U AMICAO, UA #### [place] [id number] BMPon 01-09-2024 BUN/Creatinine Ratio 17 ratio Normal - [facility] ([place]) Comment on above: Performed By: #### M ORPH, CBC, BMP, MDW, DIFF, GFR #### [address] [address] Calcium [Mass/Vol] 8.2 mg/dL Low 8.4-10.2 [facility] ([place]) Comment on above: Performed By: #### M ORPH, CBC, BMP, MDW, DIFF, GFR #### [address] [address] Chloride [Moles/Vol] 100 mmol/L Normal 98-107 [facility] ([place] Comment on above: Performed By: #### M ORPH, CBC, BMP, MDW, DIFF, GFR #### [address] [address] CO2 [Moles/Vol] 29 mmol/L Normal 23-31 [facility] ([place] Comment on above: Performed By: #### M ORPH, CBC, BMP, MDW, DIFF, GFR #### [address] [address] Creatinine [Mass/Vol] 1.00 mg/dL Normal 0.55-1.02 [facility] ([place]) Comment on above: Performed By: #### M ORPH, CBC, BMP, MDW, DIFF, GFR #### [address] [address] Electrolyte Balance 8.0 mEq/L Normal 4.0-15.0 [facility] ([place]) Comment on above: Performed By: #### M ORPH, CBC, BMP, MDW, DIFF, GFR #### [address] [address] Glucose [Mass/Vol] 98 mg/dL Normal 83-110 [facility] ([place]) Comment on above: Performed By: #### M ORPH, CBC, BMP, MDW, DIFF, GFR #### [address] [address] Potassium [Moles/Vol] 3.5 mmol/L Normal 3.5-5.1 [facility] ([place]) Comment on above: Performed By: #### M ORPH, CBC, BMP, MDW, DIFF, GFR #### [address] [address] Sodium [Moles/Vol] 137 mmol/L Normal 136-145 [facility] ([place] Comment on above: Performed By: #### M ORPH, CBC, BMP, MDW, DIFF, GFR #### [place] [address] Urea nitrogen [Mass/Vol] 17 mg/dL Normal 7-18 [facility] ([place]) Comment on above: Performed By: #### M ORPH, CBC, BMP, MDW, DIFF, GFR #### [place] [address] CBCon 01-09-2024 Erythrocyte distribution width (RBC) [Ratio] 13.6 % Normal 11.5-14.5 [facility] ([place] Comment on above: Performed By: #### M ORPH, CBC, BMP, MDW, DIFF, GFR #### [place] [address] Hematocrit (Bld) [Volume fraction] 33.6 % Low 37.0-47.0 [facility] ([place] Comment on above: Performed By: #### M ORPH, CBC, BMP, MDW, DIFF, GFR #### [place] [address] Hgb 11.7 G/dL Low 12.0-16.0 [facility] ([place] Comment on above: Performed By: #### M ORPH, CBC, BMP, MDW, DIFF, GFR #### [place] [id number] MCH (RBC) [Entitic mass] 31.4 pg High 27.0-31.2 [facility] ([place] Comment on above: Performed By: #### M ORPH, CBC, BMP, MDW, DIFF, GFR #### [place] [address] MCHC 34.9 G/dL Normal 33.0-37.0 [facility] ([place] Comment on above: Performed By: #### M ORPH, CBC, BMP, MDW, DIFF, GFR #### [place] [address] MCV (RBC) [Entitic vol] 90.1 fL Normal 80.0-94.0 [facility] ([place] Comment on above: Performed By: #### M ORPH, CBC, BMP, MDW, DIFF, GFR #### [address] [address] Platelet 158 10 3/mcL Normal 130-400 [facility] ([place]) Comment on above: Performed By: #### M ORPH, CBC, BMP, MDW, DIFF, GFR #### [address] [address] Platelet mean volume (Bld) [Entitic vol] 7.7 fL Normal 7.4-10.4 [facility] ([place]) Comment on above: Performed By: #### M ORPH, CBC, BMP, MDW, DIFF, GFR #### [address] [address] RBC 3.73 10 6/mcL Low 4.20-5.40 [facility] ([place]) Comment on above: Performed By: #### M ORPH, CBC, BMP, MDW, DIFF, GFR #### [address] [address] WBC 2.5 10 3/mcL Low 4.6-10.8 [facility] ([place] Comment on above: Performed By: #### M ORPH, CBC, BMP, MDW, DIFF, GFR #### [address] [address] [address] HEAD OR BRAIN W/O CONTRAS Ton 01-09-2024 CT HEAD OR BRAIN W/O CONTRAST ORIGINAL HISTORY: Right arm numbness COMPARISON: No TECHNIQUE: Routine noncontrast head CT, with sagittal and coronal reconstructions. This exam was performed according to our departmental dose optimization program, and includes the following measures where applicable: automated exposure control, adjustment of the mAs and/or kVp according to patient size and/or exam, and an iterative reconstruction algorithm. FINDINGS: The ventricles and sulci are normal to mildly enlarged. There are no abnormal intra or extra-axial fluid collections. Saucedo-white matter differentiation is maintained. The calvaria and the bones of the base of the skull are intact. IMPRESSION: Mild volume loss, otherwise unremarkable. Interpreted by: Baldemar Yo MD Preliminary Report By: Baldemar Yo MD Electronically signed By Baldemar Yo MD Dictated Date: 01/09/2024 2:10:12 PM Prelim Date: 01/09/2024 2:11:06 PM Sign Date: 01/09/2024 2:11:06 PM Ordering Provider: CESAR Garcia [facility] ([place]) LABORATORYOrdered By: Eladio duran on 01-09-2024 Appearance (U) Slightly Cloudy *ABN* (01/09/24 1:27 PM) Invalid Interpretation Code Clear AO Auto Urine SS Bilirubin Ql (U) Negative (01/09/24 1:27 PM) Normal Negative AO Auto Urine SS Color (U) Yellow (01/09/24 1:27 PM) Normal AO Auto Urine SS Glucose Test strip (U) [Mass/Vol] Negative Normal Negative AO Auto Urine SS Hemoglobin Auto test strip (U) [Mass/Vol] Moderate *ABN* (01/09/24 1:27 PM) Invalid Interpretation Code Negative AO Auto Urine SS Ketones Ql (U) Negative Normal Negative AO Auto Ur ine SS UA Leuk Est Small *ABN* (01/09/24 1:27 PM) Invalid Interpretation Code Negative AO Auto Urine SS UA Mucous 1+ /HPF Normal AO Auto Urine SS UA Nitrite Negative (01/09/24 1:27 PM) Normal Negative AO Auto Urine SS UA pH 6.0 (01/09/24 1:27 PM) Normal 5.0 - 8.0 AO Auto Urine SS UA Protein 30 mg/dL Normal Negative AO Auto Urine SS UA RBC 10-15 /HPF Invalid Interpretation Code None Seen AO Auto Urine SS UA Spec Grav 1.025 (01/09/24 1:27 PM) Normal 1.015-1.025 AO Auto Urine SS UA Specimen Type Clean Catch (01/09/24 1:27 PM) Normal AO Auto Urine SS UA Squam Epithelial 0-5 /HPF Invalid Interpretation Code None Seen AO Auto Urine SS UA Urobilinogen 2.0 E.U./dL Invalid Interpretation Code 0.2-1.0 AO Auto Urine SS WBC LM.HPF (Urine sed) [#/Area] 15-25 /HPF Invalid Interpretation Code None Seen AO Auto Urine SS LABORATORYOrdered By: SYSTEM SYSTEM on 01-09-2024 Bands 4.0 % Normal 0.0 - 5.0 % AO Workflow S S Basophil %, Manual 0.0 % Normal 0.0 - 2.5 % AO Wo rkflow SS Basophil, Abs Manual 0.0 103/mcL Normal 0.0 - 0 .2 10^3/mcL AO Workflow SS Calcium [Mass/Vol] 8.2 mg/dL Low 8.4 - 10. 2 mg/dL AO ADM SS Chloride [Moles/Vol] 100 mmol/L Normal 98 - 10 7 mmol/L AO ADM SS CO2 [Moles/Vol] 29 mmol/L Normal 23 - 31 mmol/L AO ADM SS Creatinine [Mass/Vol] 1.00 mg/dL Normal 0.55 - 1.02 mg/dL AO ADM SS Electrolyte Balance 8.0 mEq/L Normal 4.0 - 15 .0 mEq/L AO ADM SS Eosinophil %, Manual 0.0 % Normal 0.0 - 7.0 % AO Workflow SS Eosinophils (Bld) [#/Vol] 0.0 103/mcL Normal 0.0 - 0.4 10^3/mcL AO Workflow SS Erythrocyte distribution width (RBC) [Ratio] 13.6 % Normal 11.5 - 14.5 % AO Workflow SS GFR/1.73 sq M.predicted among blacks MDRD (S/P/Bld) [Vol rate/Area] 65 ml/min/1.73sqm Invalid Interpretation Code AO Chemistry S Comment on above: Interpretive Data: GFR Population mean for , Non- Americans Ages 20-29 = 116 mL/min/1.73 sq.m. Ages 30-39 = 107 mL/min/1.73 sq.m. Ages 40-49 = 99 mL/min/1.73 sq.m. Ages 50-59 = 93 mL/min/1.73 sq.m. Ages 60-69 = 85 mL/min/1.73 sq.m. Ages 70+ = 75 mL/min/1.73 sq.m. Chronic Kidney Disease: Less than 60 mL/min/1.73 square meters End Stage Renal Disease: Less than 15 mL/min/1.73 square meters GFR/1.73 sq M.predicted among non-blacks MDRD (S/P/Bld) [Vol rate/Area] 54 ml/min/1.73sqm Invalid Interpretation Code AO Chemistry S Comment on above: Interpretive Data: GFR Population mean for , Non- Americans Ages 20-29 = 116 mL/min/1.73 sq.m. Ages 30-39 = 107 mL/min/1.73 sq.m. Ages 40-49 = 99 mL/min/1.73 sq.m. Ages 50-59 = 93 mL/min/1.73 sq.m. Ages 60-69 = 85 mL/min/1.73 sq.m. Ages 70+ = 75 mL/min/1.73 sq.m. Chronic Kidney Disease: Less than 60 mL/min/1.73 square meters End Stage Renal Disease: Less than 15 mL/min/1.73 square meters Glucose [Mass/Vol] 98 mg/dL Normal 83 - 110 mg/dL AO ADM SS Hematocrit (Bld) [Volume fraction] 33.6 % Low 37.0 - 47.0 % AO Workflow SS Hemoglobin (Bld) [Mass/Vol] 11.7 G/dL Low 12.0 - 16.0 G/dL AO Workflow SS Lymphocyte %, Manual 32.0 % Normal 10.0 - 50.0 % AO Workflow SS Lymphocyte, Abs Manual 0.8 103/mcL Normal 0.8 - 3.9 10^3/mcL AO Workflow SS MCH (RBC) [Entitic mass] 31.4 pg High 27.0 - 31.2 pg AO Workflow SS MCHC 34.9 G/dL Normal 33.0 - 37.0 G/dL AO Workflow SS MCV (RBC) [Entitic vol] 90.1 fL Normal 80.0 - 94.0 fL AO Workflow SS Monocyte %, Manual 0.0 % Low 1.7 - 13. 0 % AO Workflow SS Monocyte distribution width Auto (Bld) [Entitic vol] 22.23 1 High 0.00 - 20.00 AO Workflow SS Comment on above: Result Comment: For adults in ED, MDW>20.0 may be associated with a higher risk of sepsis during the first 12hrs of hospital admission Monocyte, Abs Manual 0.0 103/mcL Low 0.2 - 1 .0 10^3/mcL AO Workflow SS Neutrophil %, Manual 64.0 % Normal 37.0 - 80.0 % AO Workflow SS Neutrophil, Abs Manual 1.7 103/mcL Low 2.9 - 6.2 10^3/mcL AO Workflow SS Nucleated RBC 0.0 /100 WBC Invalid Interpretation Code AO Workflow SS Platelet Estimate Normal *NA* (01/09/24 12:47 PM) Invalid Interpretation Code AO Workflow SS Platelet mean volume (Bld) [Entitic vol] 7.7 fL Normal 7.4 - 10.4 fL AO Workflow SS Platelets (Bld) [#/Vol] 158 103/mcL Normal 130 - 400 10^3/mcL AO Workflow SS Potassium [Moles/Vol] 3.5 mmol/L Normal 3.5 - 5.1 mmol/L AO ADM SS RBC (Bld) [#/Vol] 3.73 106/mcL Low 4.20 - 5.4 0 10^6/mcL AO Workflow SS Sodium [Moles/Vol] 137 mmol/L Normal 136 - 145 mmol/L AO ADM SS Urea nitrogen [Mass/Vol] 17 mg/dL Normal 7 - 18 mg/dL AO ADM SS Urea nitrogen/Creatinine [Mass ratio] 17 ratio Normal 7 - 27 ratio AO ADM SS WBC (Bld) [#/Vol] 2.5 103/mcL Low 4.6 - 10.8 10^3/mcL AO Workflow SS UAon 01-09-2024 Color (U) Yellow Normal [facility] ([place]) Comment on above: Performed By: #### U AMICAO, UA #### [address] [address] Glucose (U) [Mass/Vol] Negative Normal Negative [facility] ([place]) Comment on above: Performed By: #### U AMICAO, UA #### [address] [address] Ketones Ql (U) Negative Normal Negative [facility] ([place]) Comment on above: Performed By: #### U AMICAO, UA #### [place] [address] [place], [place] [address] UA Appear Slightly Cloudy Abnormal Clear [facility] ([place]) Comment on above: Performed By: #### U AMICAO, UA #### [place] [address] [place], [place] [address] UA Blood Moderate Abnormal Negative [facility] ([place]) Comment on above: Performed By: #### U AMICAO, UA #### [address] [address] UA Leuk Est Small Abnormal Negative [facility] ([place]) Comment on above: Performed By: #### U AMICAO, UA #### [place] [address] [address] UA Nitrite Negative Normal Negative [facility] ([place]) Comment on above: Performed By: #### U AMICAO, UA #### [place] [address] [address] UA pH 6.0 Normal 5.0 - 8.0 [facility] ([place]) Comment on above: Performed By: #### U AMICAO, UA #### [address] [address] UA Protein 30 mg/dL Normal Negative [facility] ([place]) Comment on above: Performed By: #### U AMICAO, UA #### [place] [address] [address] UA Spec Grav 1.025 Normal 1.015-1.025 [facility] ([place]) Comment on above: Performed By: #### U AMICAO, UA #### [address] [address] UA Specimen Type Clean Catch Normal [facility] ([place]) Comment on above: Performed By: #### U AMICAO, UA #### [place] [address] [address] UA Urobilinogen 2.0 E.U./dL Abnormal 0.2-1.0 [facility] ([place]) Comment on above: Performed By: #### U AMICAO, UA #### [place] [address] [address] Urobilinogen (U) [Mass/Vol] Negative Normal Negative [facility] ([place]) Comment on above: Performed By: #### U AMICAO, UA #### [place] [address] [address] Absolute lymphocyte countOrd ered By: Bronson Bynum on 08-28-2023 Lymphocytes Auto (Unsp spec) [#/Vol] 1.89 10*3/uL 0.83-4.51 [facility] Automated lymphocyte count a s percentage of total leukocytesOrdered By: Bronson Bynum on 08-28-2023 Lymphocytes/100 WBC Auto (Unsp spec) 40.6 % 19-41 [facility] Basophil percentageOrdered B y: Bronson Bynum on 08-28-2023 Basophils/100 WBC (Bld) 0.6 % 0-1 [facility] Chloride [Moles/Vol] 106 mmol/L 98-107 [facility] Cholesterol [Mass/Vol] 202 mg/dL <200 [facility] Comment on above: <200 mg/dL Desirable 200-240 mg/dL Borderline >240 mg/dL High Risk Eosinophils/100 WBC (Bld) 8.8 % 0-5 [facility] Glucose [Mass/Vol] 85 mg/dL 74-106 [facility] Hemoglobin (Bld) [Mass/Vol] 11.8 g/dL 12.0-15.0 [facility] Monocytes/100 WBC (Bld) 5.8 % 0-10 [facility] Neutrophils (Bld) [#/Vol] 2.1 10*3/uL 2.0-7.7 [facility] Neutrophils/100 WBC (Bld) 44.0 % 47-70 [facility] Potassium [Moles/Vol] 3.8 mmol/L 3.5-5.1 [facility] Sodium [Moles/Vol] 138 mmol/L 136-145 [facility] Triglyceride [Mass/Vol] 52 mg/dL <199 [facility] Comment on above: The drugs N-Acetylcy steine and Metamizole may falsely depress this assay.Serum Triglycerides Reference Interval Normal <150 mg/dL Borderline high 150 - 199 mg/dL High 200 - 499 mg/dL Very High > or = 500 mg/dL WBC (Bld) [#/Vol] 4.7 10*3/uL 4.4-11.0 [facility] Determination of erythrocyte mean corpuscular volume (MCV)Ordered By: Bronson Bynum on 08-28-2023 MCV (RBC) [Entitic vol] 92.1 fL 81-99 [facility] Erythrocyte distribution wid th ratioOrdered By: Bronson Bynum on 08-28-2023 Erythrocyte distribution width (RBC) [Ratio] 12.5 % 11.6-14.6 [facility] Erythrocyte distribution wid th standard deviationOrdered By: [facility] Centersherry Bynum on 08-28-2023 Erythrocyte distribution width (RBC) [Entitic vol] 42.1 fL 35.1-43.9 [facility] Hematocrit Auto (Bld) [Volum e fraction]Ordered By: Bronson Bynum on 08-28-2023 Hematocrit (Bld) [Volume fraction] 36.1 % 37-47 [facility] Immature granulocytes/100 WB C Auto (Bld)Ordered By: [facility] Centersherry Medeirostorsten on 08-28-2023 Immature granulocytes/100 WBC (Bld) 0.200 % 0.0-0.9 [facility] Comment on above: IG% - Immature Granu locytes (promyelocytes, myelocytes and metamyelocytes) > 1% indicates that a LEFT SHIFT is Present. Laboratory - Chemistry and C hemistry - challengeOrdered By: rishi Bynum on 08-28-2023 Cholesterol in HDL [Mass/Vol] 93 mg/dL >40 [facility] Comment on above: The drugs N-Acetylcy steine and Metamizole may falsely depress this assay. Reference Range HDL <40 mg/dL Low HDL Cholesterol HDL >or= 60 mg/dL High HDL Cholesterol Cholesterol in LDL [Mass/Vol] 99 mg/dL 0-130 [facility] CO2 [Moles/Vol] 28.0 mmol/L 21.0-32.0 [facility] Urea nitrogen/Creatinine [Mass ratio] 21.6 mg/mg 10-20 [facility] Laboratory - Hematology and Cell countsOrdered By: laminecrestonsherry Medeirostorsten on 08-28-2023 MCH (RBC) [Entitic mass] 30.1 pg 27.0-32.0 [facility] MCHC (RBC) [Mass/Vol] 32.7 g/dL 32-36 [facility] Nucleated RBC/100 WBC (Bld) [Ratio] 0 % 0-5 [facility] Platelet mean volume (Bld) [Entitic vol] 10.4 fL 6.2-12.0 [facility] Platelets (Bld) [#/Vol] 224 10*3/uL 150-450 [facility] No Panel InformationOrdered By: Bronson Bynum on 08-28-2023 Estimated GFR (MDRD) Amer 67 mL/min >60 [facility] Comment on above: GFR Calc Estimated GFR (MDRD) Non-Af Amer 56 mL/min >60 [facility] Comment on above: Non- GFR Calc VLDL Cholesterol 10 mg/dL 5-40 [facility] RBC Auto (Bld) [#/Vol]Ordere d By: Bronson Bynum on 08-28-2023 RBC (Bld) [#/Vol] 3.92 10*6/uL 4.2-5.4 [facility] [place] Serum or plasma calcium juan ramon urement (mass/volume)Ordered By: Bronson Bynum on 08-28-2023 Calcium [Mass/Vol] 9.4 mg/dL 8.5-10.1 [facility] Serum or plasma creatinine m easurement (mass/volume)Ordered By: Bronson Bynum on 08-28-2023 Creatinine [Mass/Vol] 1.02 mg/dL 0.55-1.02 [facility] Comment on above: The validity of the calculated GFR & GFRAA in patients over 70 years has not been determined. Clinical correlation is essential. Serum or plasma urea nitroge n measurement (mass/volume)Ordered By: Bronson Bynum on 08-28-2023 Urea nitrogen [Mass/Vol] 22 mg/dL 7-18 [facility] Thin prep Papanicolaou smear with manual screeningOrdered By: Bronson Bynum on 08-28-2023 Thin prep Papanicolaou smear with manual screening 4 5-15 [facility] Final Surgical Pathology Rep [facility] 04-24-2023 Final Surgical Pathology Report . Pathology Reports Accession: Collected Date/Time: Received Date/Time: Pathologist: [id number] 04/22/2023 10:14 EDT 04/23/2023 09:41 EDT SPIKE MATHEW MD Final Surgical Pathology Report DIAGNOSIS: TRANSVERSE COLON POLYP: - TUBULAR ADENOMA CLINICAL INFORMATION: Procedure: COLONOSCOPY WITH POLYPECTOMY Preoperative diagnosis: SCREENING Postoperative diagnosis: SAME SPECIMEN: A TRANSVERSE COLON POLYP GROSS DESCRIPTION: All parts labelled with patient name and [id number] Received in formalin labeled transverse colon polyp is 1 velasco tissue fragment measuring 0.3 cm. TS-1 Natalia Rea, Grossing Director Cardiology/ Dr. Isaias Lim, Pathologist Dictated by Natalia Rea MICROSCOPIC DESCRIPTION: The microscopic examination is performed, except in the case of Gross Only. Electronically Signed by Pathology Report verified by [facility] SPIKE MATHEW Sign out Date: 04/24/2023 11:05 Performing Lab: [facility], [address] [place] [address] Pathology Dept Disclaimer If ancillary studies were utilized, the following Laboratory Developed Test (LDT) disclaimer will apply: Under CLIA requirements, [facility]ology [facility] is qualified to perform high complexity testing. For all ancillary stains, positive and negative controls stain appropriately. Performance characteristics of immunohistochemical and chromogenic in-situ hybridization tests have been determined by [facility]ology [facility]. These tests are used for clinical purposes, They should not be regarded as investigational or for research. Normal [facility] ([place]) Absolute lymphocyte countOrd ered By: Dr. Bynum on 11-21-2022 Lymphocytes Auto (Unsp spec) [#/Vol] 1.35 10*3/uL 0.83-4.51 [facility] Basophil percentageOrdered B y: Dr. Bynum on 11-21-2022 Basophils/100 WBC (Bld) 1.3 % 0-1 [facility] Bilirubin [Mass/Vol] 0.50 mg/dL 0.20-1.00 [facility] Comment on above: For patients on eltr ombopag therapy, use of Dimension [place] TBIL is not recommended. Chloride [Moles/Vol] 108 mmol/L 98-107 [facility] Eosinophils/100 WBC (Bld) 9.9 % 0-5 [facility] Glucose [Mass/Vol] 96 mg/dL 74-106 [facility] Neutrophils (Bld) [#/Vol] 1.7 10*3/uL 2.0-7.7 [facility] Neutrophils/100 WBC (Bld) 44.5 % 47-70 [facility] Potassium [Moles/Vol] 4.3 mmol/L 3.5-5.1 [facility] Protein [Mass/Vol] 7.7 g/dL 6.4-8.2 [facility] Sodium [Moles/Vol] 141 mmol/L 136-145 [facility] WBC (Bld) [#/Vol] 3.7 10*3/uL 4.4-11.0 [facility] Blood erythrocytes count (nu mber/volume)Ordered By: Dr. Bynum on 11-21-2022 RBC (Bld) [#/Vol] 3.90 10*6/uL 4.2-5.4 [facility] Blood hemoglobin measurement (mass/volume)Ordered By: Dr. Bynum on 11-21-2022 Hemoglobin (Bld) [Mass/Vol] 11.8 g/dL 12.0-15.0 [facility] Blood lymphocytes/100 leukoc ytesOrdered By: Dr. Bynum on 11-21-2022 Lymphocytes/100 WBC (Bld) 36.2 % 19-41 [facility] Blood monocytes/100 leukocyt esOrdered By: Dr. Bynum on 11-21-2022 Monocytes/100 WBC (Bld) 7.8 % 0-10 [facility] Blood platelet mean volumeOr dered By: Dr. Bynum on 11-21-2022 Platelet mean volume (Bld) [Entitic vol] 10.8 fL 6.2-12.0 [facility] Determination of erythrocyte mean corpuscular volume (MCV)Ordered By: Dr. Bynum on 11-21-2022 MCV (RBC) [Entitic vol] 92.8 fL 81-99 [facility] Hematocrit Auto (Bld) [Volum e fraction]Ordered By: Dr. Bynum on 11-21-2022 Hematocrit (Bld) [Volume fraction] 36.2 % 37-47 [facility] Laboratory - Chemistry and C hemistry - challengeOrdered By: Dr. Bynum on 11-21-2022 ALP [Catalytic activity/Vol] 83 U/L 45-117 [facility] ALT [Catalytic activity/Vol] 26 U/L 13-56 [facility] CO2 [Moles/Vol] 29.0 mmol/L 21.0-32.0 [facility] Globulin (S) [Mass/Vol] 3.9 g/dL 2.2-4.2 [facility] Urea nitrogen/Creatinine [Mass ratio] 24.7 mg/mg 10-20 [facility] Laboratory - Hematology and Cell countsOrdered By: Dr. Bynum on 11-21-2022 Erythrocyte distribution width (RBC) [Entitic vol] 43.4 fL 35.1-43.9 [facility] Erythrocyte distribution width (RBC) [Ratio] 12.8 % 11.6-14.6 [facility] Immature granulocytes/100 WBC (Bld) 0.300 % 0.0-0.9 [facility] Comment on above: IG% - Immature Granu locytes (promyelocytes, myelocytes and metamyelocytes) > 1% indicates that a LEFT SHIFT is Present. MCH (RBC) [Entitic mass] 30.3 pg 27.0-32.0 [facility] Nucleated RBC/100 WBC (Bld) [Ratio] 0 % 0-5 [facility] MCHC Auto (RBC) [Mass/Vol]Or dered By: Dr. Bynum on 11-21-2022 MCHC (RBC) [Mass/Vol] 32.6 g/dL 32-36 [facility] No Panel InformationOrdered By: Dr. Bynum on 11-21-2022 Estimated GFR (MDRD) Amer 72 mL/min >60 [facility] Comment on above: GFR Calc Estimated GFR (MDRD) Non-Af Amer 59 mL/min >60 [facility] Comment on above: Non- GFR Calc Platelets bldOrdered By: Dr. Bynum on 11-21-2022 Platelets (Bld) [#/Vol] 212 10*3/uL 150-450 [facility] Serum or plasma albumin juan ramon urement (mass/volume)Ordered By: Dr. Bynum on 11-21-2022 Albumin [Mass/Vol] 3.8 g/dL 3.2-5.0 [facility] Serum or plasma albumin/glob ulin mass ratioOrdered By: Dr. Bynum on 11-21-2022 Albumin/Globulin [Mass ratio] 1.0 {ratio} 0.9-2.4 [facility] Serum or plasma calcium juan ramon urement (mass/volume)Ordered By: Dr. Bynum on 11-21-2022 Calcium [Mass/Vol] 9.6 mg/dL 8.5-10.1 [facility] Serum or plasma creatinine m easurement (mass/volume)Ordered By: Dr. Bynum on 11-21-2022 Creatinine [Mass/Vol] 0.97 mg/dL 0.55-1.02 [facility] Comment on above: The validity of the calculated GFR & GFRAA in patients over 70 years has not been determined. Clinical correlation is essential. Serum or plasma urea nitroge n measurement (mass/volume)Ordered By: Dr. Bynum on 11-21-2022 Urea nitrogen [Mass/Vol] 24 mg/dL 7-18 [facility] Thin prep Papanicolaou smear with manual screeningOrdered By: Dr. Bynum on 11-21-2022 Thin prep Papanicolaou smear with manual screening 22 U/L 15-37 [facility] Thin prep Papanicolaou smear with manual screening 4 5-15 [facility] CALCIFEDIOL ([id number])Ordered B y: Automotive Engineering Teacher on 02-27-2022 25-hydroxyvitamin D [Mass/Vol] 52.7 ng/mL Normal 30.0-100.0 [facility]; [facility] Work Phone: CBC, Platelets & Auto Diff ( [id number])Ordered By: Automotive Engineering Teacher on 02-27-2022 Basophils (Bld) [#/Vol] 0.0 10*3/uL Normal 0.0-0.2 [facility]; [facility] Work Phone: Basophils/100 WBC (Bld) 1 % Normal [facility]; [facility] Work Phone: Eosinophils (Bld) [#/Vol] 0.3 10*3/uL Normal 0.0-0.4 [facility]; [facility] Work Phone: Eosinophils/100 WBC (Bld) 9 % Normal [facility]; [facility] Work Phone: Erythrocyte distribution width (RBC) [Ratio] 12.5 % Normal 11.7-15.4 [facility]; [facility] Work Phone: Hematocrit (Bld) [Volume fraction] 37.6 % Normal 34.0-46.6 [facility]; [facility] Work Phone: Hemoglobin (Bld) [Mass/Vol] 12.5 g/dL Normal 11.1-15.9 [facility]; [facility] Work Phone: Immature granulocytes (Bld) [#/Vol] 0.0 10*3/uL Normal 0.0-0.1 [facility]; [facility] Work Phone: Immature granulocytes/100 WBC (Bld) 0 % Normal [facility]; [facility] Work Phone: Lymphocytes (Bld) [#/Vol] 1.3 10*3/uL Normal 0.7-3.1 [facility]; [facility] Work Phone: Lymphocytes/100 WBC (Bld) 39 % Normal [facility]; [facility] Work Phone: MCH (RBC) [Entitic mass] 30.3 pg Normal 26.6-33.0 [facility]; [facility] Work Phone: MCHC (RBC) [Mass/Vol] 33.2 g/dL Normal 31.5-35.7 [facility] prehensive Internal Medicine; [facility] Work Phone: MCV (RBC) [Entitic vol] 91 fL Normal 79-97 [facility]; [facility] Work Phone: Monocytes (Bld) [#/Vol] 0.2 10*3/uL Normal 0.1-0.9 [facility]; [facility] Work Phone: Monocytes/100 WBC (Bld) 6 % Normal [facility]; [facility] Work Phone: Neutrophils (Bld) [#/Vol] 1.5 10*3/uL Normal 1.4-7.0 [facility]; [facility] Work Phone: Neutrophils/100 WBC (Bld) 45 % Normal [facility]; [facility] Work Phone: Platelets (Bld) [#/Vol] 212 10*3/uL Normal 150-450 [facility]; [facility] Work Phone: RBC (Bld) [#/Vol] 4.13 10*6/uL Normal 3.77-5.28 [facility]; [facility] Work Phone: WBC (Bld) [#/Vol] 3.4 10*3/uL Normal 3.4-10.8 [facility]; [facility] Work Phone: Metabolic Panel, Comprehensi ve ([id number])Ordered By: Automotive Engineering Teacher on 02-27-2022 Albumin [Mass/Vol] 4.4 g/dL Normal 3.7-4.7 [facility]; [facility] Work Phone: Albumin/Globulin [Mass ratio] 1.7 {ratio} Normal 1.2-2.2 [facility]; [facility] Work Phone: ALP [Catalytic activity/Vol] 74 U/L Normal 44-121 [facility]; [facility] Work Phone: ALT [Catalytic activity/Vol] 16 U/L Normal 0-32 [facility]; [facility] Work Phone: AST [Catalytic activity/Vol] 26 U/L Normal 0-40 [facility]; [facility] Work Phone: Bilirubin [Mass/Vol] 0.3 mg/dL Normal 0.0-1.2 [facility]; [facility] Work Phone: Calcium [Mass/Vol] 9.6 mg/dL Normal 8.7-10.3 [facility]; [facility] Work Phone: Chloride [Moles/Vol] 105 mmol/L Normal 96-106 [facility]; [facility] Work Phone: CO2 [Moles/Vol] 25 mmol/L Normal 20-29 [facility] Internal [facility]; [facility] Work Phone: Creatinine [Mass/Vol] 0.92 mg/dL Normal 0.57-1.00 [facility] prehensive [facility]; [facility] Work Phone: Globulin (S) [Mass/Vol] 2.6 g/dL Normal 1.5-4.5 [facility]; [facility] Work Phone: Glucose [Mass/Vol] 95 mg/dL Normal 65-99 [facility]; [facility] Work Phone: Potassium [Moles/Vol] 5.0 mmol/L Normal 3.5-5.2 [facility]ive [facility]; [facility] Work Phone: Protein [Mass/Vol] 7.0 g/dL Normal 6.0-8.5 [facility]; [facility] Work Phone: Sodium [Moles/Vol] 142 mmol/L Normal 134-144 [facility]; [facility] Work Phone: Urea nitrogen [Mass/Vol] 19 mg/dL Normal 8-27 [facility]; [facility] Work Phone: Urea nitrogen/Creatinine [Mass ratio] 21 mg/mg Normal 12-28 [facility]; [facility] Work Phone: Metabolic Panel, Comprehensive ([id number]) 65 mL/min/1.73 Normal [facility]; [facility] Work Phone: INHOUSE COVID 19 (ONLY) RAPI D ([id number])Ordered By: Tammy Toth on 11-08-2021 INHOUSE COVID 19 (ONLY) RAPID ([id number]) Positive Normal Comprehensi ve Internal Medicine; [facility] Work Phone: CALCIFEDIOL ([id number])Ordered B y: Automotive Engineering Teacher on 09-01-2021 25-hydroxyvitamin D [Mass/Vol] 55.8 ng/mL Normal 30.0-100.0 [facility]; [facility] Work Phone: CBC, Platelets & Auto Diff ( [id number])Ordered By: Automotive Engineering Teacher on 09-01-2021 Basophils (Bld) [#/Vol] 0.0 10*3/uL Normal 0.0-0.2 [facility]; [facility] Work Phone: Basophils/100 WBC (Bld) 1 % Normal [facility]; [facility] Work Phone: Eosinophils (Bld) [#/Vol] 0.1 10*3/uL Normal 0.0-0.4 [facility]; [facility] Work Phone: Eosinophils/100 WBC (Bld) 1 % Normal [facility]; [facility] Work Phone: Erythrocyte distribution width (RBC) [Ratio] 12.7 % Normal 11.7-15.4 [facility]; [facility] Work Phone: Hematocrit (Bld) [Volume fraction] 35.1 % Normal 34.0-46.6 [facility]; [facility] Work Phone: Hemoglobin (Bld) [Mass/Vol] 11.7 g/dL Normal 11.1-15.9 [facility]; [facility] Work Phone: Immature granulocytes (Bld) [#/Vol] 0.0 10*3/uL Normal 0.0-0.1 [facility]; [facility] Work Phone: Immature granulocytes/100 WBC (Bld) 0 % Normal [facility]; [facility] Work Phone: Lymphocytes (Bld) [#/Vol] 2.0 10*3/uL Normal 0.7-3.1 [facility]; [facility] Work Phone: Lymphocytes/100 WBC (Bld) 37 % Normal [facility]; [facility] Work Phone: MCH (RBC) [Entitic mass] 29.9 pg Normal 26.6-33.0 [facility]; [facility] Work Phone: MCHC (RBC) [Mass/Vol] 33.3 g/dL Normal 31.5-35.7 [facility] prehensive [facility]; [facility] Work Phone: MCV (RBC) [Entitic vol] 90 fL Normal 79-97 [facility]; [facility] Work Phone: Monocytes (Bld) [#/Vol] 0.3 10*3/uL Normal 0.1-0.9 [facility]; [facility] Work Phone: Monocytes/100 WBC (Bld) 5 % Normal [facility]; [facility] Work Phone: Neutrophils (Bld) [#/Vol] 3.1 10*3/uL Normal 1.4-7.0 [facility]; [facility] Work Phone: Neutrophils/100 WBC (Bld) 56 % Normal [facility]; [facility] Work Phone: Platelets (Bld) [#/Vol] 236 10*3/uL Normal 150-450 [facility]; [facility] Work Phone: RBC (Bld) [#/Vol] 3.91 10*6/uL Normal 3.77-5.28 [facility]; [facility] Work Phone: WBC (Bld) [#/Vol] 5.5 10*3/uL Normal 3.4-10.8 [facility]; [facility] Work Phone: Lipid Panel ([id number])Ordered B y: Automotive Engineering Teacher on 09-01-2021 Cholesterol [Mass/Vol] 206 mg/dL Abnormal 100-199 [facility]; [facility] Work Phone: Cholesterol in HDL [Mass/Vol] 87 mg/dL Normal [facility]; [facility] Work Phone: Triglyceride [Mass/Vol] 42 mg/dL Normal 0-149 [facility]; [facility] Work Phone: Lipid Panel ([id number]) 8 mg/dL Normal 5-40 [facility]; [facility] Work Phone: Lipid Panel ([id number]) 111 mg/dL Abnormal 0-99 [facility]; [facility] Work Phone: Lipid Panel ([id number]) 1.3 {ratio} Normal 0.0-3.2 [facility]; [facility] Work Phone: Metabolic Panel, Comprehensi ve ([id number])Ordered By: Automotive Engineering Teacher on 09-01-2021 Albumin [Mass/Vol] 4.3 g/dL Normal 3.7-4.7 [facility]; [facility] Work Phone: Albumin/Globulin [Mass ratio] 1.5 {ratio} Normal 1.2-2.2 [facility]; [facility] Work Phone: ALP [Catalytic activity/Vol] 83 U/L Normal 44-121 [facility]; [facility] Work Phone: ALT [Catalytic activity/Vol] 19 U/L Normal 0-32 [facility]; [facility] Work Phone: AST [Catalytic activity/Vol] 22 U/L Normal 0-40 [facility]; [facility] Work Phone: Bilirubin [Mass/Vol] 0.3 mg/dL Normal 0.0-1.2 [facility]; [facility] Work Phone: Calcium [Mass/Vol] 9.4 mg/dL Normal 8.7-10.3 [facility]; [facility] Work Phone: Chloride [Moles/Vol] 103 mmol/L Normal 96-106 [facility]; [facility] Work Phone: CO2 [Moles/Vol] 25 mmol/L Normal 20-29 [facility]; [facility] Work Phone: Creatinine [Mass/Vol] 0.88 mg/dL Normal 0.57-1.00 [facility]; [facility] Work Phone: GFR/1.73 sq M.predicted among blacks CKD-EPI (S/P/Bld) [Vol rate/Area] 74 mL/min/1.73 Normal [facility]; [facility] Work Phone: GFR/1.73 sq M.predicted among non-blacks CKD-EPI (S/P/Bld) [Vol rate/Area] 64 mL/min/1.73 Normal [facility]; [facility] Work Phone: Globulin (S) [Mass/Vol] 2.9 g/dL Normal 1.5-4.5 [facility]; [facility] Work Phone: Glucose [Mass/Vol] 90 mg/dL Normal 65-99 [facility]; [facility] Work Phone: Potassium [Moles/Vol] 4.1 mmol/L Normal 3.5-5.2 [facility]; [facility] Work Phone: Protein [Mass/Vol] 7.2 g/dL Normal 6.0-8.5 [facility]; [facility] Work Phone: Sodium [Moles/Vol] 142 mmol/L Normal 134-144 [facility]; [facility] Work Phone: Urea nitrogen [Mass/Vol] 21 mg/dL Normal 8-27 [facility]; [facility] Work Phone: Urea nitrogen/Creatinine [Mass ratio] 24 mg/mg Normal 12-28 [facility]; [facility] Work Phone: TSH ([id number])Ordered By: Jenaee m Holistic Nutritionist on 09-01-2021 TSH Qn 2.900 {uIU/mL} Normal 0.450-4.500 [facility]; [facility] Work Phone: INHOUSE Rapid Covid/ Flu A/ Flu BOrdered By: Dior Sevilla on 08-22-2021 INHOUSE Rapid Covid/ Flu A/ Flu B Positive Normal [facility]; [facility] Work Phone: CBC, Platelets & Auto Diff ( [id number])Ordered By: Automotive Engineering Teacher on 08-22-2020 Basophils (Bld) [#/Vol] 0.0 {x10E3/uL} Normal 0.0-0.2 [facility]; [facility] Work Phone: Comment on above: Aug 2020; PATIENT WA S FASTINGPERFORMED BY: CB [facility] [id number] [address]Dublin [place] [id number] Basophils (Bld) [#/Vol] 0.0 10*3/uL Normal 0.0-0.2 [facility]; [facility] Work Phone: Basophils/100 WBC (Bld) 1 % Normal [facility]; [facility] Work Phone: Comment on above: Aug 2020; PATIENT AISLINN S FASTINGPERFORMED BY: CB [facility] [id number]Dublin [place] [id number] Eosinophils (Bld) [#/Vol] 0.4 {x10E3/uL} Normal 0.0-0.4 [facility]; [facility] Work Phone: Comment on above: Aug 2020; PATIENT AISLINN S FASTINGPERFORMED BY: [facility] [id number] [address]Dublin [place] [id number] Eosinophils (Bld) [#/Vol] 0.4 10*3/uL Normal 0.0-0.4 [facility]; [facility] Work Phone: Eosinophils/100 WBC (Bld) 10 % Normal [facility]; [facility] Work Phone: Comment on above: Aug 2020; PATIENT AISLINN S FASTINGPERFORMED BY: [facility] [id number] [address]Dublin [place] [id number] Erythrocyte distribution width (RBC) [Ratio] 12.7 % Normal 11.7-15.4 [facility]; [facility] Work Phone: Comment on above: Aug 2020; PATIENT AISLINN S FASTINGPERFORMED BY: CB [facility] [id number] [address]Dublin [place] [id number] Hematocrit (Bld) [Volume fraction] 36.8 % Normal 34.0-46.6 [facility]; [facility] Work Phone: Comment on above: Aug 2020; PATIENT AISLINN S FASTINGPERFORMED BY: [facility] [id number] [address]Dublin [place] [id number] Hemoglobin (Bld) [Mass/Vol] 12.1 g/dL Normal 11.1-15.9 [facility]; [facility] Work Phone: Comment on above: Aug 2020; PATIENT AISLINN Bernal FASTINGPERFORMED BY: ALEX [facility] [id number] [facility] [place] [id number] Immature granulocytes (Bld) [#/Vol] 0.0 {x10E3/uL} Normal 0.0-0.1 [facility]; [facility] Work Phone: Comment on above: Aug 2020; PATIENT AISLINN S FASTINGPERFORMED BY: [facility] [id number] [facility] [id number] Immature granulocytes (Bld) [#/Vol] 0.0 10*3/uL Normal 0.0-0.1 [facility]; [facility] Work Phone: Immature granulocytes/100 WBC (Bld) 0 % Normal [facility]; [facility] Work Phone: Comment on above: Aug 2020; PATIENT AISLINN S FASTINGPERFORMED BY: [employer] [id number] [facility] [id number] Lymphocytes (Bld) [#/Vol] 1.4 {x10E3/uL} Normal 0.7-3.1 [facility]; [facility] Work Phone: Comment on above: Aug 2020; PATIENT AISLINN S FASTINGPERFORMED BY: [facility] [id number] [facility] [place] [id number] Lymphocytes (Bld) [#/Vol] 1.4 10*3/uL Normal 0.7-3.1 [facility]; [facility] Work Phone: Lymphocytes/100 WBC (Bld) 37 % Normal [facility]; [facility] Work Phone: Comment on above: Aug 2020; PATIENT AISLINN S FASTINGPERFORMED BY: [facility] [id number] [facility] [place] [id number] MCH (RBC) [Entitic mass] 29.9 pg Normal 26.6-33.0 [facility]; [facility] Work Phone: Comment on above: Aug 2020; PATIENT AISLINN S FASTINGPERFORMED BY: CB [facility] Skpfxe8118 [address] RoadDublin [place] [id number] MCHC (RBC) [Mass/Vol] 32.9 g/dL Normal 31.5-35.7 [facility] prehensive Internal Medicine; [facility] Work Phone: Comment on above: Aug 2020; PATIENT AISLINN S FASTINGPERFORMED BY: CB [facility] Deytgl6772 [address] RoadDublin [place] [id number] MCV (RBC) [Entitic vol] 91 fL Normal 79-97 [facility]; [facility] Work Phone: Comment on above: Aug 2020; PATIENT AISLINN S FASTINGPERFORMED BY: CB [facility] Axopqq1160 [address] RoadDublin [place] [id number] Monocytes (Bld) [#/Vol] 0.2 {x10E3/uL} Normal 0.1-0.9 [facility]; [facility] Work Phone: Comment on above: Aug 2020; PATIENT AISLINN S FASTINGPERFORMED BY: CB [facility] Chgpip6840 [address] RoadDublin [place] [id number] Monocytes (Bld) [#/Vol] 0.2 10*3/uL Normal 0.1-0.9 [facility]; [facility] Work Phone: Monocytes/100 WBC (Bld) 5 % Normal [facility]; [facility] Work Phone: Comment on above: Aug 2020; PATIENT AISLINN S FASTINGPERFORMED BY: CB [facility] Chzjmm2362 [address] RoadDublin [place] [id number] Neutrophils (Bld) [#/Vol] 1.7 {x10E3/uL} Normal 1.4-7.0 [facility]; [facility] Work Phone: Comment on above: Aug 2020; PATIENT AISLINN S FASTINGPERFORMED BY: CB [facility] Aoubrx5198 [address] RoadDublin [place] [id number] Neutrophils (Bld) [#/Vol] 1.7 10*3/uL Normal 1.4-7.0 [facility]; [facility] Work Phone: Neutrophils/100 WBC (Bld) 47 % Normal [facility]; [facility] Work Phone: Comment on above: Aug 2020; PATIENT AISLINN Bernal FASTINGPERFORMED BY: CB [facility] Bbiomy7084 [address] RoadColumbus Regional Healthcare Systemin [place] [id number] Platelets (Bld) [#/Vol] 211 {x10E3/uL} Normal 150-450 [facility]; [facility] Work Phone: Comment on above: Aug 2020; PATIENT AISLINN Bernal FASTINGPERFORMED BY: ALEX [facility] Erlbgo[address] [facility] [id number] Platelets (Bld) [#/Vol] 211 10*3/uL Normal 150-450 [facility]; [facility] Work Phone: RBC (Bld) [#/Vol] 4.05 {x10E6/uL} Normal 3.77-5.28 [facility] Internal Medicine; [facility] Work Phone: Comment on above: Aug 2020; PATIENT AISLINN Bernal FASTINGPERFORMED BY: CB [facility] Dgzfvh5703 [facility] [id number] RBC (Bld) [#/Vol] 4.05 10*6/uL Normal 3.77-5.28 [facility]; [facility] Work Phone: WBC (Bld) [#/Vol] 3.7 {x10E3/uL} Normal 3.4-10.8 [facility]; [facility] Work Phone: Comment on above: Aug 2020; PATIENT AISLINN Bernal FASTINGPERFORMED BY: CB [facility] Vmlrft5336 [facility] [id number] WBC (Bld) [#/Vol] 3.7 10*3/uL Normal 3.4-10.8 [facility]; [facility] Work Phone: Lipid Panel ([id number])Ordered B y: Automotive Engineering Teacher on 08-22-2020 Cholesterol [Mass/Vol] 227 mg/dL Abnormal 100-199 Co mprehensive [facility]; [facility] Work Phone: Comment on above: Aug 2020; PATIENT AISLINN S FASTINGPERFORMED BY: CB [facility] Vzaoav5993 [address] RoadDublin [place] [id number] Cholesterol in HDL [Mass/Vol] 89 mg/dL Normal [facility]; [facility] Work Phone: Comment on above: Aug 2020; PATIENT AISLINN S FASTINGPERFORMED BY: CB [facility] Gtgysg2292 [address] RoadDublin [place] [id number] Cholesterol in LDL/Cholesterol in HDL [Mass ratio] 1.5 {ratio} Normal 0.0-3.2 [facility]; [facility] Work Phone: Comment on above: LDL/HDL Ratio Men Wo men 1/2 Avg.Risk 1.0 1.5 Avg.Risk 3.6 3.2 2X Avg.Risk 6.2 5.0 3X Avg.Risk 8.0 6.15 Aug 2020; PATIENT AISLINN S FASTINGPERFORMED BY: CB [facility] Nlptgj7730 [address] RoadDublin [place] [id number] Triglyceride [Mass/Vol] 49 mg/dL Normal 0-149 [facility]; [facility] Work Phone: Comment on above: Aug 2020; PATIENT AISLINN S FASTINGPERFORMED BY: CB [facility] Jtsxwf1819 [address] RoadDublin [place] [id number] Lipid Panel (38335) 130 mg/dL Abnormal 0-99 Compr ehensive Internal Medicine; [facility] Work Phone: Comment on above: Aug 2020; PATIENT AISLINN S FASTINGPERFORMED BY: CB [facility] Ckyeat5613 [address] RoadDublin [place] [id number] Lipid Panel (24364) 8 mg/dL Normal 5-40 Compr ehensive Internal Medicine; [facility] Work Phone: Comment on above: Aug 2020; PATIENT AISLINN S FASTINGPERFORMED BY: CB [facility] Wlxygl6657 [address] RoadDublin [place] [id number] Lipid Panel (61646) 1.5 {ratio} Normal 0.0-3.2 [facility]; [facility] Work Phone: Metabolic Panel, Comprehensi ve (96346)Ordered By: Automotive Engineering Teacher on 08-22-2020 Albumin [Mass/Vol] 4.4 g/dL Normal 3.7-4.7 [facility] Internal [facility]; [facility] Work Phone: Comment on above: Aug 2020; PATIENT AISLINN S FASTINGPERFORMED BY: CB [facility] Krluaa3381 [address] RoadDublin [place] [id number] Albumin/Globulin [Mass ratio] 1.6 {ratio} Normal 1.2-2.2 [facility]; [facility] Work Phone: Comment on above: Aug 2020; PATIENT AISLINN Bernal FASTINGPERFORMED BY: CB [facility] Biyvfy6733 [address] RoadDublin [place] [id number] ALP [Catalytic activity/Vol] 88 [iU]/L Normal 39-117 [facility]; [facility] Work Phone: Comment on above: Aug 2020; PATIENT AISLINN Bernal FASTINGPERFORMED BY: CB [facility] Ohcqva9775 [address] RoadDublin [place] [id number] ALP [Catalytic activity/Vol] 88 U/L Normal 39-117 [facility]; [facility] Work Phone: ALT [Catalytic activity/Vol] 18 [iU]/L Normal 0-32 [facility]; [facility] Work Phone: Comment on above: Aug 2020; PATIENT AISLINN S FASTINGPERFORMED BY: CB [facility] Eykqua4310 [address] RoadDublin [place] [id number] ALT [Catalytic activity/Vol] 18 U/L Normal 0-32 [facility]; [facility] Work Phone: AST [Catalytic activity/Vol] 20 [iU]/L Normal 0-40 [facility]; [facility] Work Phone: Comment on above: Aug 2020; PATIENT WA S FASTINGPERFORMED BY: CB [facility] Jrlzli5289 [address] RoadDublin [place] [id number] AST [Catalytic activity/Vol] 20 U/L Normal 0-40 [facility]; [facility] Work Phone: Bilirubin [Mass/Vol] 0.4 mg/dL Normal 0.0-1.2 [facility]; [facility] Work Phone: Comment on above: Aug 2020; PATIENT AISLINN S FASTINGPERFORMED BY: CB [facility] Jdtrdt4232 [address] RoadDublin [place] [id number] Calcium [Mass/Vol] 9.5 mg/dL Normal 8.7-10.3 [facility] Internal [facility]; [facility] Work Phone: Comment on above: Aug 2020; PATIENT AISLINN S FASTINGPERFORMED BY: CB [facility] Jgwwcb1596 [address] RoadDublin [place] [id number] Chloride [Moles/Vol] 104 mmol/L Normal 96-106 [facility]; [facility] Work Phone: Comment on above: Aug 2020; PATIENT AISLINN S FASTINGPERFORMED BY: CB [facility] Dozjfh7727 [address] RoadDublin [place] [id number] CO2 [Moles/Vol] 25 mmol/L Normal 20-29 [facility] Internal Medicine; [facility] Work Phone: Comment on above: Aug 2020; PATIENT AISLINN S FASTINGPERFORMED BY: CB [facility] Rcdslq8158 [address] RoadDublin [place] [id number] Creatinine [Mass/Vol] 1.00 mg/dL Normal 0.57-1.00 [facility]; [facility] Work Phone: Comment on above: Aug 2020; PATIENT AISLINN S FASTINGPERFORMED BY: CB [facility] Uhnexm2144 [address] RoadDublin [place] [id number] GFR/1.73 sq M predicted among blacks CKD-EPI (S/P/Bld) [Vol rate/Area] 64 mL/min/1.73 Normal [facility]; [facility] Work Phone: Comment on above: Aug 2020; PATIENT AISLINN S FASTINGPERFORMED BY: CB [facility] Gxmbyj5812 [address] RoadDublin [place] [id number] GFR/1.73 sq M predicted among non-blacks CKD-EPI (S/P/Bld) [Vol rate/Area] 56 mL/min/1.73 Abnormal [facility]; [facility] Work Phone: Comment on above: Aug 2020; PATIENT AISLINN S FASTINGPERFORMED BY: CB [facility] Pobodl6916 [address] RoadDublin [place] [id number] Globulin (S) [Mass/Vol] 2.7 g/dL Normal 1.5-4.5 [facility]; [facility] Work Phone: Comment on above: Aug 2020; PATIENT AISLINN S FASTINGPERFORMED BY: CB [facility] Tutwbe7268 [address] RoadDublin [place] [id number] Glucose [Mass/Vol] 92 mg/dL Normal 65-99 [facility] Internal [facility]; [facility] Work Phone: Comment on above: Aug 2020; PATIENT AISLINN S FASTINGPERFORMED BY: CB [facility] Rheeff8710 [address] RoadDublin [place] [id number] Potassium [Moles/Vol] 4.3 mmol/L Normal 3.5-5.2 [facility] prehensive Internal Medicine; [facility] Work Phone: Comment on above: Aug 2020; PATIENT AISLINN S FASTINGPERFORMED BY: CB [facility] Czwkid6341 [address] RoadDublin [place] [id number] Protein [Mass/Vol] 7.1 g/dL Normal 6.0-8.5 [facility]; [facility] Work Phone: Comment on above: Aug 2020; PATIENT AISLINN S FASTINGPERFORMED BY: CB [facility] Zgweyy0686 [address] RoadDublin [place] [id number] Sodium [Moles/Vol] 142 mmol/L Normal 134-144 [facility]; [facility] Work Phone: Comment on above: Aug 2020; PATIENT AISLINN S FASTINGPERFORMED BY: CB [facility] Yyqkow7167 [address] RoadDublin [place] [id number] Urea nitrogen [Mass/Vol] 19 mg/dL Normal 8-27 [facility]; [facility] Work Phone: Comment on above: Aug 2020; PATIENT AISLINN S FASTINGPERFORMED BY: CB [facility] Yeyfpt2649 [address] RoadDublin [place] [id number] Urea nitrogen/Creatinine [Mass ratio] 19 mg/mg Normal 12-28 [facility]; [facility] Work Phone: Comment on above: Aug 2020; PATIENT AISLINN S FASTINGPERFORMED BY: CB [facility] Vybkgw9075 [address] RoadDublin [place] [id number] TSH ([id number])Ordered By: sentitO Networkse m Holistic Nutritionist on 08-22-2020 TSH Qn 2.730 {uIU/mL} Normal 0.450-4.500 [facility] Internal Medicine; [facility] Work Phone: Comment on above: Aug 2020; PATIENT AISLINN S FASTINGPERFORMED BY: CB [facility] Jdodvn3025 [address] RoadDublin [place] [id number] CBC, Platelets & Auto Diff ( [id number])Ordered By: Automotive Engineering Teacher on 08-18-2019 Basophils (Bld) [#/Vol] 0.1 {x10E3/uL} Normal 0.0-0.2 [facility] Work Phone: Comment on above: PATIENT NOT FASTINGP ERFORMED BY: CB [facility] Yhrqwh4807 [address] RoadDublin [place] [id number] Basophils (Bld) [#/Vol] 0.1 10*3/uL Normal 0.0-0.2 [facility]; [facility] Work Phone: Basophils/100 WBC (Bld) 1 % Normal [facility] Work Phone: Comment on above: PATIENT NOT FASTINGP ERFORMED BY: CB [facility] Lzzxfn5918 [address] RoadDublin [place] [id number] Eosinophils (Bld) [#/Vol] 0.4 {x10E3/uL} Normal 0.0-0.4 [facility] Work Phone: Comment on above: PATIENT NOT FASTINGP ERFORMED BY: ALEX LabCodaniella VillegasNmmivr1054 [address] [facility]in [place] [id number] Eosinophils (Bld) [#/Vol] 0.4 10*3/uL Normal 0.0-0.4 [facility]; [facility] Work Phone: Eosinophils/100 WBC (Bld) 8 % Normal [facility] Work Phone: Comment on above: PATIENT NOT FASTINGP ERFORMED BY: ALEX [facility] Bggpql1726 [address] [facility] [id number] Erythrocyte distribution width (RBC) [Ratio] 12.7 % Normal 11.7-15.4 [facility] Work Phone: Comment on above: PATIENT NOT FASTINGP ERFORMED BY: ALEX [facility] Ybgnes0100 [address] [facility] [id number] Hematocrit (Bld) [Volume fraction] 36.6 % Normal 34.0-46.6 [facility] Work Phone: Comment on above: PATIENT NOT FASTINGP ERFORMED BY: ALEX [facility] Uwiziz0269 [address] [facility] [id number] Hemoglobin (Bld) [Mass/Vol] 12.3 g/dL Normal 11.1-15.9 [facility] Work Phone: Comment on above: PATIENT NOT FASTINGP ERFORMED BY: CB [facility] Sysnfv8316 [address] [facility] [id number] Immature granulocytes (Bld) [#/Vol] 0.0 {x10E3/uL} Normal 0.0-0.1 [facility] Work Phone: Comment on above: PATIENT NOT FASTINGP ERFORMED BY: ALEX [facility] Tnpomk8000 [address] [facility] [id number] Immature granulocytes (Bld) [#/Vol] 0.0 10*3/uL Normal 0.0-0.1 [facility]; [facility] Work Phone: Immature granulocytes/100 WBC (Bld) 0 % Normal [facility] Work Phone: Comment on above: PATIENT NOT FASTINGP ERFORMED BY: ALEX Villegas6370 [facility] [id number] Lymphocytes (Bld) [#/Vol] 1.8 {x10E3/uL} Normal 0.7-3.1 [facility] Work Phone: Comment on above: PATIENT NOT FASTINGP ERFORMED BY: [facility]6370 [facility] [id number] Lymphocytes (Bld) [#/Vol] 1.8 10*3/uL Normal 0.7-3.1 [facility]; [facility] Work Phone: Lymphocytes/100 WBC (Bld) 38 % Normal [facility] Work Phone: Comment on above: PATIENT NOT FASTINGP ERFORMED BY: [facility] Hpaxzq7424 [facility] [id number] MCH (RBC) [Entitic mass] 30.0 pg Normal 26.6-33.0 [facility] Work Phone: Comment on above: PATIENT NOT FASTINGP ERFORMED BY: ALEX Lopez Dczzvn5451 [facility] [id number] MCHC (RBC) [Mass/Vol] 33.6 g/dL Normal 31.5-35.7 [facility] Internal Medicine Work Phone: Comment on above: PATIENT NOT FASTINGP ERFORMED BY: ALEX [facility]Wal[facility]6370 [facility] [id number] MCV (RBC) [Entitic vol] 89 fL Normal 79-97 [facility] Work Phone: Comment on above: PATIENT NOT FASTINGP ERFORMED BY: ALEX Lopez Ribidu8006 [facility] [id number] Monocytes (Bld) [#/Vol] 0.2 {x10E3/uL} Normal 0.1-0.9 [facility] Work Phone: Comment on above: PATIENT NOT FASTINGP ERFORMED BY: ALEX LabCodaniella ManleyDygbgv0496 Av[address] Roadblin [place] [id number] Monocytes (Bld) [#/Vol] 0.2 10*3/uL Normal 0.1-0.9 [facility]; [facility] Work Phone: Monocytes/100 WBC (Bld) 5 % Normal [facility] Work Phone: Comment on above: PATIENT NOT FASTINGP ERFORMED BY: CB [facility] Ktchri8668 [address] RoadColumbus Regional Healthcare Systemin [place] [id number] Neutrophils (Bld) [#/Vol] 2.3 {x10E3/uL} Normal 1.4-7.0 [facility] Work Phone: Comment on above: PATIENT NOT FASTINGP ERFORMED BY: ALEX LabCodaniella ManleyIqzbai7041 [address] RoadColumbus Regional Healthcare Systemin [place] [id number] Neutrophils (Bld) [#/Vol] 2.3 10*3/uL Normal 1.4-7.0 [facility]; [facility] Work Phone: Neutrophils/100 WBC (Bld) 48 % Normal [facility] Work Phone: Comment on above: PATIENT NOT FASTINGP ERFORMED BY: ALEX LabTravis Villegas[address] [facility]in [place] [id number] Platelets (Bld) [#/Vol] 223 {x10E3/uL} Normal 150-450 [facility] Work Phone: Comment on above: PATIENT NOT FASTINGP ERFORMED BY: CB [facility] Loxfhi3343 [address] RoadColumbus Regional Healthcare Systemin [place] [id number] Platelets (Bld) [#/Vol] 223 10*3/uL Normal 150-450 [facility]; [facility] Work Phone: RBC (Bld) [#/Vol] 4.10 {x10E6/uL} Normal 3.77-5.28 [facility] Internal Medicine Work Phone: Comment on above: PATIENT NOT FASTINGP ERFORMED BY: CB [facility] Ctxxud6500 [address] [facility] Centerblin [place] [id number] RBC (Bld) [#/Vol] 4.10 10*6/uL Normal 3.77-5.28 [facility] Internal Medicine; [facility] Work Phone: WBC (Bld) [#/Vol] 4.7 {x10E3/uL} Normal 3.4-10.8 [facility] Internal [facility] Work Phone: Comment on above: PATIENT NOT FASTINGP ERFORMED BY: CB [facility] Iqmroo8778 [address] [facility] [id number] WBC (Bld) [#/Vol] 4.7 10*3/uL Normal 3.4-10.8 [facility] Internal Medicine; [facility] Internal Medicine Work Phone: Metabolic Panel, Basic ([phone])Ordered By: Automotive Engineering Teacher on 08-18-2019 Calcium [Mass/Vol] 9.6 mg/dL Normal 8.7-10.3 [facility] Internal Medicine Work Phone: Comment on above: PATIENT NOT FASTINGP ERFORMED BY: CB [facility] Huvmsp2984 [facility] [id number] Chloride [Moles/Vol] 104 mmol/L Normal 96-106 [facility] Work Phone: Comment on above: PATIENT NOT FASTINGP ERFORMED BY: CB [facility] Ahewqe5097 [facility] [id number] CO2 [Moles/Vol] 23 mmol/L Normal 20-29 [facility] Internal Medicine Work Phone: Comment on above: PATIENT NOT FASTINGP ERFORMED BY: CB [facility] Mbfhyg8942 [facility] [id number] Creatinine [Mass/Vol] 1.01 mg/dL Abnormal 0.57-1.00 [facility] Internal Medicine Work Phone: Comment on above: PATIENT NOT FASTINGP ERFORMED BY: CB [facility] Dqlnxg2758 [facility] [id number] GFR/1.73 sq M predicted among blacks CKD-EPI (S/P/Bld) [Vol rate/Area] 64 mL/min/1.73 Normal [facility] Internal Medicine Work Phone: Comment on above: PATIENT NOT FASTINGP ERFORMED BY: CB [facility] Mnhobt4910 [address] RoadDublin [place] [id number] GFR/1.73 sq M predicted among non-blacks CKD-EPI (S/P/Bld) [Vol rate/Area] 55 mL/min/1.73 Abnormal [facility] Internal Medicine Work Phone: Comment on above: PATIENT NOT FASTINGP ERFORMED BY: CB [facility] Fizzjs0285 [address] RoadDublin [place] [id number] Glucose [Mass/Vol] 87 mg/dL Normal 65-99 [facility] Internal Medicine Work Phone: Comment on above: PATIENT NOT FASTINGP ERFORMED BY: CB [facility] Joktva1991 [address] RoadDublin [place] [id number] Potassium [Moles/Vol] 4.2 mmol/L Normal 3.5-5.2 [facility] Internal Medicine Work Phone: Comment on above: PATIENT NOT FASTINGP ERFORMED BY: CB [facility] Wxnhfy6685 [address] RoadDublin [place] [id number] Sodium [Moles/Vol] 143 mmol/L Normal 134-144 [facility] Internal Medicine Work Phone: Comment on above: PATIENT NOT FASTINGP ERFORMED BY: CB [facility] Ufgosh1965 [address] RoadDublin [place] [id number] Urea nitrogen [Mass/Vol] 24 mg/dL Normal 8-27 [facility] Internal Medicine Work Phone: Comment on above: PATIENT NOT FASTINGP ERFORMED BY: CB [facility] Qmmgva3011 [address] RoadDublin [place] [id number] Urea nitrogen/Creatinine [Mass ratio] 24 mg/mg Normal 12- [facility] Internal Medicine Work Phone: Comment on above: PATIENT NOT FASTINGP ERFORMED BY: CB [facility] Sawgwp8246 [address] RoadDublin [place] [id number] TSH ([id number])Ordered By: Syste m Holistic Nutritionist on 08-18-2019 TSH Qn 2.390 {uIU/mL} Normal 0.450-4.500 Comprehen [facility] Internal Medicine Work Phone: Comment on above: PATIENT NOT FASTINGP ERFORMED BY: ALEX LabWal[facility]. [facility] [facility]in [place] [id number] CBC WITH MANUAL DIFF ([id number]) Ordered By: Automotive Engineering Teacher on 10-16-2018 Basophils #/vol (Bld) 0.0 {x10E3/uL} Normal 0.0-0.2 [facility] Work Phone: Comment on above: PATIENT WAS FASTINGP ERFORMED BY: ALEX [facility] Fueyoh6903 [address] [facility] [id number] Basophils (Bld) [#/Vol] 0.0 10*3/uL Normal 0.0-0.2 [facility]; [facility] Work Phone: Basophils/100 WBC (Bld) 1 % Normal [facility] Work Phone: Comment on above: PATIENT WAS FASTINGP ERFORMED BY: ALEX [facility] Ylrtno6249 [facility] [id number] Eosinophils #/vol (Bld) 0.2 {x10E3/uL} Normal 0.0-0.4 [facility] Work Phone: Comment on above: PATIENT WAS FASTINGP ERFORMED BY: [facility]6370 [facility] [id number] Eosinophils (Bld) [#/Vol] 0.2 10*3/uL Normal 0.0-0.4 [facility]; [facility] Work Phone: Eosinophils/100 WBC (Bld) 5 % Normal [facility] Work Phone: Comment on above: PATIENT WAS FASTINGP ERFORMED BY: ALEX [facility]Wal[facility]. [facility]6370 [facility] [id number] Erythrocyte distribution width Ratio (RBC) 13.5 % Normal 12.3-15.4 [facility] Work Phone: Comment on above: PATIENT WAS FASTINGP ERFORMED BY: [facility]6370 [facility] [id number] Hematocrit Volume Fraction (Bld) 34.6 % Normal 34.0-46.6 [facility] Work Phone: Comment on above: PATIENT WAS FASTINGP ERFORMED BY: ALEX [facility] Mqltvf0401 [facility] [id number] Hemoglobin mass conc (Bld) 11.4 g/dL Normal 11.1-15.9 [facility] Work Phone: Comment on above: PATIENT WAS FASTINGP ERFORMED BY: ALEX [place] [address] [facility] [id number] Immature granulocytes #/vol (Bld) 0.0 {x10E3/uL} Normal 0.0-0.1 [facility] Work Phone: Comment on above: PATIENT WAS FASTINGP ERFORMED BY: ALEX [facility] Flzdng8730 [facility] [id number] Immature granulocytes (Bld) [#/Vol] 0.0 10*3/uL Normal 0.0-0.1 [facility]; [facility] Work Phone: Immature granulocytes/100 WBC (Bld) 0 % Normal [facility] Work Phone: Comment on above: PATIENT WAS FASTINGP ERFORMED BY: ALEX [place] [address] [facility] [id number] Lymphocytes #/vol (Bld) 1.4 {x10E3/uL} Normal 0.7-3.1 [facility] Work Phone: Comment on above: PATIENT WAS FASTINGP ERFORMED BY: [place] [address] [facility] [id number] Lymphocytes (Bld) [#/Vol] 1.4 10*3/uL Normal 0.7-3.1 [facility]; [facility] Work Phone: Lymphocytes/100 WBC (Bld) 42 % Normal [facility] Work Phone: Comment on above: PATIENT WAS FASTINGP ERFORMED BY: [facility] [facility]in [place] [id number] MCH Entitic mass (RBC) 28.9 pg Normal 26.6-33.0 [facility] Internal Medicine Work Phone: Comment on above: PATIENT WAS FASTINGP ERFORMED BY: ALEX [facility] Tmcxwa7[address] [facility]in [place] [id number] MCHC mass conc (RBC) 32.9 g/dL Normal 31.5-35.7 [facility] Internal [facility] Work Phone: Comment on above: PATIENT WAS FASTINGP ERFORMED BY: LabWal[facility]. [facility]6[address] [facility] [id number] MCV Entitic volume (RBC) 88 fL Normal 79-97 [facility] Work Phone: Comment on above: PATIENT WAS FASTINGP ERFORMED BY: [facility] [place] [facility] [id number] Monocytes #/vol (Bld) 0.1 {x10E3/uL} Normal 0.1-0.9 [facility] Work Phone: Comment on above: PATIENT WAS FASTINGP ERFORMED BY: [facility]Wal[facility]. [facility]6[address] [facility] [id number] Monocytes (Bld) [#/Vol] 0.1 10*3/uL Normal 0.1-0.9 [facility]; [facility] Work Phone: Monocytes/100 WBC (Bld) 3 % Normal [facility] Work Phone: Comment on above: PATIENT WAS FASTINGP ERFORMED BY: LabWalter P. [facility] [facility] [id number] Neutrophils #/vol (Bld) 1.7 {x10E3/uL} Normal 1.4-7.0 [facility] Work Phone: Comment on above: PATIENT WAS FASTINGP ERFORMED BY: LabWalter P. [facility]6[address] [facility] [id number] Neutrophils (Bld) [#/Vol] 1.7 10*3/uL Normal 1.4-7.0 [facility]; [facility] Work Phone: Neutrophils/100 WBC (Bld) 49 % Normal [facility] Work Phone: Comment on above: PATIENT WAS FASTINGP ERFORMED BY: Second[facility] Surface TensionLifeCare Hospitals [facility] [place] [id number] Platelets #/vol (Bld) 239 {x10E3/uL} Normal 150-379 [facility] Work Phone: Comment on above: PATIENT WAS FASTINGP ERFORMED BY: [employer] Njxkne6729 [address] Ad.[facility]ECU [facility] [id number] Platelets (Bld) [#/Vol] 239 10*3/uL Normal 150-379 [facility]; [facility] Work Phone: RBC #/vol (Bld) 3.94 {x10E6/uL} Normal 3.77-5.28 Comp [facility] Work Phone: Comment on above: PATIENT WAS FASTINGP ERFORMED BY: [employer] Tikkov9855 AvilaAG&[facility] [id number] RBC (Bld) [#/Vol] 3.94 10*6/uL Normal 3.77-5.28 Compr ensive Internal Medicine; [facility] Work Phone: WBC #/vol (Bld) 3.4 {x10E3/uL} Normal 3.4-10.8 Compr ensive Internal Medicine Work Phone: Comment on above: PATIENT WAS FASTINGP ERFORMED BY: SecondbrainChrist HospitalJmkqtc8381 [facility] [id number] WBC (Bld) [#/Vol] 3.4 10*3/uL Normal 3.4-10.8 Compre [facility]; [facility] Work Phone: LIPID PANEL ([id number])Ordered B y: Automotive Engineering Teacher on 10-16-2018 Cholesterol in HDL mass conc 66 mg/dL Normal [facility] Work Phone: Comment on above: PATIENT WAS FASTINGP ERFORMED BY: SecondbrainChrist HospitalHafovd4574 [facility] [id number] Cholesterol in LDL mass conc 115 mg/dL Abnormal 0-99 [facility] Work Phone: Comment on above: PATIENT WAS FASTINGP ERFORMED BY: ALEX AjithTravis Kpybic4583 [facility] [id number] Cholesterol in LDL/Cholesterol in HDL mass ratio 1.7 {ratio} Normal 0.0-3.2 [facility] Work Phone: Comment on above: LDL/HDL Ratio Men Wo men 1/2 Avg.Risk 1.0 1.5 Avg.Risk 3.6 3.2 2X Avg.Risk 6.2 5.0 3X Avg.Risk 8.0 6.1 PATIENT WAS FASTINGP ERFORMED BY: ALEX AjithTravis Dezmuc0274 [facility] [id number] Cholesterol in VLDL mass conc 10 mg/dL Normal 5-40 [facility] Work Phone: Comment on above: PATIENT WAS FASTINGP ERFORMED BY: ALEX Jessicadaniella Bnhmha9001 [facility] [id number] Cholesterol mass conc 191 mg/dL Normal 100-199 Com prehensive Internal Medicine Work Phone: Comment on above: PATIENT WAS FASTINGP ERFORMED BY: ALEX Manleylin6370 [facility] [id number] Triglyceride mass conc 50 mg/dL Normal 0-149 Co mprehensive Internal Medicine Work Phone: Comment on above: PATIENT WAS FASTINGP ERFORMED BY: ALEX Frederick Dmekpw3878 [facility] [id number] METABOLIC PANEL, COMPREHENSI VE ([id number])Ordered By: Automotive Engineering Teacher on 10-16-2018 Albumin mass conc 4.3 g/dL Normal 3.5-4.8 Compreh ensive Internal Medicine Work Phone: Comment on above: PATIENT WAS FASTINGP ERFORMED BY: ALEX AjithTravis Djrxjk6494 [facility] [id number] Albumin/Globulin mass ratio 1.4 {ratio} Normal 1.2-2.2 [facility] Work Phone: Comment on above: PATIENT WAS FASTINGP ERFORMED BY: LabCo Ncczxe2828 [address] RoadDublin [place] [id number] ALP [Catalytic activity/Vol] 78 U/L Normal 39-117 [facility]; [facility] Internal Medicine Work Phone: ALP enzyme act/vol 78 [iU]/L Normal 39-117 [facility] Internal Medicine Work Phone: Comment on above: PATIENT WAS FASTINGP ERFORMED BY: LabCo Jzqbdu1482 [address] RoadDublin [place] [id number] ALT [Catalytic activity/Vol] 10 U/L Normal 0-32 [facility]; [facility] Internal Medicine Work Phone: ALT enzyme act/vol 10 [iU]/L Normal 0-32 [facility] Internal Medicine Work Phone: Comment on above: PATIENT WAS FASTINGP ERFORMED BY: LabUniversity Of Missouri Children'S HospitalLiqluq2299 Avlia RoadColumbus Regional Healthcare Systemin [place] [id number] AST [Catalytic activity/Vol] 15 U/L Normal 0-40 [facility] Internal Medicine; [facility] Internal Medicine Work Phone: AST enzyme act/vol 15 [iU]/L Normal 0-40 [facility] Internal Medicine Work Phone: Comment on above: PATIENT WAS FASTINGP ERFORMED BY: LabUniversity Of Missouri Children'S HospitalHdwybt0631 [address] [facility]in [place] [id number] Bilirubin mass conc 0.3 mg/dL Normal 0.0-1.2 [facility] Internal Medicine Work Phone: Comment on above: PATIENT WAS FASTINGP ERFORMED BY: LabCo Nvhfjl0076 [address] RoadDublin [place] [id number] Calcium mass conc 9.2 mg/dL Normal 8.7-10.3 [facility] Internal Medicine Work Phone: Comment on above: PATIENT WAS FASTINGP ERFORMED BY: LabCo Tyfokr[address]0 [address] [facility]in [place] [id number] Chloride molar conc 105 mmol/L Normal 96-106 Compr ehensive Internal Medicine Work Phone: Comment on above: PATIENT WAS FASTINGP ERFORMED BY: ALEX [facility] Oamcfm1012 [address] RoadDublin [place] [id number] CO2 molar conc 24 mmol/L Normal 20-29 Comprehens shanta Internal Medicine Work Phone: Comment on above: PATIENT WAS FASTINGP ERFORMED BY: CB [facility] Hafhds4437 [address] Roadblin [place] [id number] Creatinine mass conc 0.86 mg/dL Normal 0.57-1.00 Comp [facility] Work Phone: Comment on above: PATIENT WAS FASTINGP ERFORMED BY: CB [facility] Dmyrrm5222 [address] [facility] [place] [id number] GFR/1.73 sq M predicted among blacks CKD-EPI vol rate/area (S/P/Bld) 78 mL/min/1.73 Normal [facility] Work Phone: Comment on above: PATIENT WAS FASTINGP ERFORMED BY: ALEX [facility] Byeazh[address] [facility] [place] [id number] GFR/1.73 sq M predicted among non-blacks CKD-EPI vol rate/area (S/P/Bld) 67 mL/min/1.73 Normal Comprehensiv e Internal Medicine Work Phone: Comment on above: PATIENT WAS FASTINGP ERFORMED BY: ALEX [facility] Zofzgo[address]37 [address] [facility]in [place] [id number] Globulin mass conc (S) 3.1 g/dL Normal 1.5-4.5 Co [facility] centerensive Internal Medicine Work Phone: Comment on above: PATIENT WAS FASTINGP ERFORMED BY: CB [facility] Kfqcbt3084 [address] RoadDublin [place] [id number] Glucose mass conc 86 mg/dL Normal 65-99 Compreh ensive Internal Medicine Work Phone: Comment on above: PATIENT WAS FASTINGP ERFORMED BY: CB [facility] Rvgndy9374 [address] [facility]in [place] [id number] Potassium molar conc 4.7 mmol/L Normal 3.5-5.2 Comp [facility] Work Phone: Comment on above: PATIENT WAS FASTINGP ERFORMED BY: ALEX LabTravis Villegas[address] [facility] [place] [facility] [id number] Protein mass conc 7.4 g/dL Normal 6.0-8.5 Compreh ensive Internal Medicine Work Phone: Comment on above: PATIENT WAS FASTINGP ERFORMED BY: ALEX LabCodaniella ManleyDpapwg2513 [address] [facility]in [place] [id number] Sodium molar conc 142 mmol/L Normal 134-144 Compreh ensive Internal Medicine Work Phone: Comment on above: PATIENT WAS FASTINGP ERFORMED BY: ALEX LabCruzdaniella ManleyIdccvy7895 [address] [facility]in [place] [id number] Urea nitrogen mass conc 20 mg/dL Normal 8-27 [facility] Work Phone: Comment on above: PATIENT WAS FASTINGP ERFORMED BY: ALEX LabCruzdaniella ManleyPtxqis3711 [facility] [id number] Urea nitrogen/Creatinine mass ratio 23 mg/mg Normal 12-28 [facility] Work Phone: Comment on above: PATIENT WAS FASTINGP ERFORMED BY: ALEX LabCruzdaniella ManleyJaidlv0554 [facility] [id number] TSH (THYROID STIMULATING HOR MAYRA) ([id number])Ordered By: Automotive Engineering Teacher on 10-16-2018 Thyrotropin Qn 2.100 {uIU/mL} Normal 0.450-4.500 Compr ehensive Internal Medicine Work Phone: Comment on above: PATIENT WAS FASTINGP ERFORMED BY: ALEX [facility] Vuxipt8680 [address] [facility]in [place] [id number] URINALYSIS, W/ MICRO ([id number]) Ordered By: Automotive Engineering Teacher on 10-16-2018 Appearance Nom (U) Clear Normal Compre hensive Internal Medicine Work Phone: Comment on above: PATIENT WAS FASTINGP ERFORMED BY: ALEX [facility] Ufozur7[address] [facility] Centerbl[facility] [place] [id number] Bilirubin Ql (U) Negative Normal Comprehe nsive Internal Medicine Work Phone: Comment on above: PATIENT WAS FASTINGP ERFORMED BY: ALEX [facility] Wkhqul5759 [address] RoadDublin [place] [id number] Bilirubin Ql (U) Negative Normal Comprehe nsive Internal Medicine; [facility] Work Phone: Color Nom (U) Yellow Normal Comprehensi ve Internal Medicine Work Phone: Comment on above: PATIENT WAS FASTINGP ERFORMED BY: ALEX [facility] Qauhia2786 [address] RoadDublin [place] [id number] Glucose Ql (U) Negative Normal Comprehens shanta Internal Medicine Work Phone: Comment on above: PATIENT WAS FASTINGP ERFORMED BY: ALEX [facility] Kzorhj0511 [address] RoadDublin [place] [id number] Glucose Ql (U) Negative Normal Comprehens shanta Internal Medicine; [facility] Work Phone: Hemoglobin Ql (U) 1+ Abnormal Compreh ensive Internal Medicine Work Phone: Comment on above: PATIENT WAS FASTINGP ERFORMED BY: ALEX LabS[facility] Qvbbwj4044 [address] RoadDublin [place] [id number] Ketones Ql (U) Negative Normal Comprehens shanta Internal Medicine Work Phone: Comment on above: PATIENT WAS FASTINGP ERFORMED BY: ALEX Manleylin6370 [address] RoadDublin [place] [id number] Ketones Ql (U) Negative Normal Comprehens shanta Internal Medicine; [facility] Work Phone: Leukocyte esterase Test strip Ql (U) Negative Normal [facility] Work Phone: Comment on above: PATIENT WAS FASTINGP ERFORMED BY: ALEX [facility] Oajhpk9982 [address] RoadDublin [place] [id number] Leukocyte esterase Test strip Ql (U) Negative Normal [facility]; [facility] Work Phone: Microscopic observation LM Nom (Urine sed) See below: Normal [facility] Work Phone: Comment on above: Microscopic was jared cated and was performed. PATIENT WAS FASTINGP ERFORMED BY: ALEX Manleylin6370 [address] [facility] [id number] Nitrite Ql (U) Negative Normal Comprehens shanta Internal Medicine Work Phone: Comment on above: PATIENT WAS FASTINGP ERFORMED BY: ALEX AjithTravis ManleyOognwo3535 [address] [facility]in [place] [id number] Nitrite Ql (U) Negative Normal Comprehens shanta Internal Medicine; [facility] Work Phone: pH (U) 6.0 [pH] Normal 5.0-7.5 [facility] Work Phone: Comment on above: PATIENT WAS FASTINGP ERFORMED BY: ALEX Manleylin6370 [facility] [id number] Protein Ql (U) Negative Normal Comprehens shanta Internal Medicine Work Phone: Comment on above: PATIENT WAS FASTINGP ERFORMED BY: ALEX Villegas6370 [facility] [id number] Protein Ql (U) Negative Normal Comprehens shanta Internal Medicine; [facility] Work Phone: Specific gravity Relative Density (U) 1.014 1 Normal 1.005-1.030 Comprehensi ve Internal Medicine Work Phone: Comment on above: PATIENT WAS FASTINGP ERFORMED BY: AELX Manleylin6370 [facility] [id number] Urobilinogen (U) [Mass/Vol] 0.2 mg/dL Normal 0.2-1.0 [facility]; [facility] Work Phone: Urobilinogen Test strip mass conc (U) 0.2 mg/dL Normal 0.2-1.0 Comprehensiv e Internal Medicine Work Phone: Comment on above: PATIENT WAS FASTINGP ERFORMED BY: ALEX Manleylin6370 [facility] [id number] CBC W/Diff, AutomatedOrdered By: Automotive Engineering Teacher on 09-12-2018 Absolute Neut 1.5 {X10_3/uL} Abnormal 2.0-7.7 Compreh ensive Internal Medicine Work Phone: Comment on above: [facility] [address] [place], [address] Basophils/100 WBC (Bld) 0.4 % Normal 0-1 [facility] Work Phone: Comment on above: [facility] [address] [place], [address] Eosinophils/100 WBC (Bld) 0.4 % Normal 0-5 [facility] Work Phone: Comment on above: [facility] [address]tax[address] [place], [place], [id number] Erythrocyte distribution width Ratio (RBC) 12.5 % Normal 11.6-14.6 [facility] Work Phone: Comment on above: [facility] [address]qui[address] [place], [place], [phone] Hematocrit Volume Fraction (Bld) 39.3 % Normal 37-47 [facility] Work Phone: Comment on above: [facility] [address] [place], [address] Hemoglobin mass conc (Bld) 13.0 g/dL Normal 12.0-15.0 [facility] Work Phone: Comment on above: [facility] [address] [place], [address] IM GRAN % 0.000 % Normal 0.0-0.9 [facility] Work Phone: Comment on above: IG% - Immature Granu locytes (promyelocytes, myelocytes andmetamyelocytes) > 1% indicates that a LEFT SHIFT is Present. [facility] [address] [place], [place], [id number] Lymphocytes #/vol (Bld) 0.77 {X10_3/ul} Abnormal 0.83-4.51 [facility] Work Phone: Comment on above: [facility] [address] [place], [address] Lymphocytes/100 WBC (Bld) 28.6 % Normal 19-41 [facility] Work Phone: Comment on above: [facility] [address] [place], [address] MCH Entitic mass (RBC) 30.0 pg Normal 27.0-32.0 [facility] Internal Medicine Work Phone: Comment on above: [facility] [address] [place], [address] MCHC mass conc (RBC) 33.1 {g/gl} Normal 32-36 [facility] Internal Medicine Work Phone: Comment on above: [facility] [address] [place], [address] MCV Entitic volume (RBC) 90.8 fL Normal 81-99 [facility] Work Phone: Comment on above: [facility] [address] [place], [address] Monocytes/100 WBC (Bld) 14.9 % Abnormal 0-10 [facility] Work Phone: Comment on above: [facility] [address] [place], [address] Neutrophils/100 WBC (Bld) 55.7 % Normal 47-70 [facility] Work Phone: Comment on above: [facility] [address] [place], [address] Platelet mean volume Entitic volume (Bld) 11.6 fL Normal 6.2-12.0 Comprehsharp [place] Internal Medicine Work Phone: Comment on above: [facility] [address] [place], [address] Platelets #/vol (Bld) 131 10*3/uL Abnormal 150-450 Co mprehensive Internal Medicine Work Phone: Comment on above: [facility] [address] [place], [place], [id number] RBC #/vol (Bld) 4.33 {M/mm3} Normal 4.2-5.4 Compreh ensive Internal Medicine Work Phone: Comment on above: [facility] [address] [place], [address] RDW SD 41.4 fL Normal 35.1-43.9 [facility] Work Phone: Comment on above: [facility] [address] [place], [place], [id number] WBC #/vol (Bld) 2.7 10*3/uL Abnormal 4.4-11.0 Comprehe nsive Internal Medicine Work Phone: Comment on above: [facility] [address] [place], [place], [phone] Comprehensive Metabolic Prof ilOrdered By: Automotive Engineering Teacher on 09-12-2018 Comprehensive metabolic 2000 panel 8.7 mg/dL Normal 8.5-10.1 Comprehensi ve Internal Medicine Work Phone: Comment on above: [facility] [address] [place], [place], [address] Comprehensive metabolic 2000 panel 25 U/L Normal 15-37 Comprehensi ve Internal Medicine Work Phone: Comment on above: [facility] [address] [place], [address] Comprehensive metabolic 2000 panel 7.6 g/dL Normal 6.4-8.2 Comprehensi ve Internal Medicine Work Phone: Comment on above: [facility] [address] [place], [place], [phone] Comprehensive metabolic 2000 panel 18.9 {RATIO} Normal 10-20 Comprehensi ve Internal Medicine Work Phone: Comment on above: [facility] spital [address] [place], [place], [address] Comprehensive metabolic 2000 panel 83 U/L Normal 45-117 Comprehensi ve Internal Medicine Work Phone: Comment on above: [facility] spital [address] [place], [place], [address] Comprehensive metabolic 2000 panel 23 U/L Normal 13-56 Comprehensi ve Internal Medicine Work Phone: Comment on above: [facility] spital [address] [place], [place], [phone] Comprehensive metabolic 2000 panel 0.40 mg/dL Normal 0.20-1.00 Comprehensi ve Internal Medicine Work Phone: Comment on above: [facility] [address] [place], [place], [address] Comprehensive metabolic 2000 panel 137 mmol/L Normal 136-145 Comprehensi ve Internal Medicine Work Phone: Comment on above: [facility] [address] [place], [place], [address] Comprehensive metabolic 2000 panel 4.2 mmol/L Normal 3.5-5.1 Comprehensi ve Internal Medicine Work Phone: Comment on above: [facility] [address] [place], [address] Comprehensive metabolic 2000 panel 104 mmol/L Normal 98-107 Comprehensi ve Internal Medicine Work Phone: Comment on above: [facility] [address] [place], [place], [address] Comprehensive metabolic 2000 panel 26.0 mmol/L Normal 21.0-32.0 Comprehensi ve Internal Medicine Work Phone: Comment on above: [facility] spital [address] [place], [place], [address] Comprehensive metabolic 2000 panel 7 1 Normal 5-15 Comprehensi ve Internal Medicine Work Phone: Comment on above: [facility] [address] [place], [place], [address] Comprehensive metabolic 2000 panel 88 mg/dL Normal 74-106 Comprehensi ve Internal Medicine Work Phone: Comment on above: Please note revised GLUCOSE reference range iqausenal40/02/2018. [facility] [address] [place], [address] Comprehensive metabolic 2000 panel 3.9 g/dL Normal 3.2-5.0 Comprehensi ve Internal Medicine Work Phone: Comment on above: [facility] [address] [place], [place], [address] Comprehensive metabolic 2000 panel 1.1 {RATIO} Normal 0.9-2.4 Comprehensi ve Internal Medicine Work Phone: Comment on above: [facility] [address] [place], [place], [address] Comprehensive metabolic 2000 panel 65 mL/min Normal Comprehensi ve Internal Medicine Work Phone: Comment on above: GFR Calc [facility] [address] [place], [place], [address] Comprehensive metabolic 2000 panel 54 mL/min Abnormal Comprehensi ve Internal Medicine Work Phone: Comment on above: Non- GFR Calc [facility] [address] [place], [address] Comprehensive metabolic 2000 panel 20 mg/dL Abnormal 7-18 Comprehensi ve Internal Medicine Work Phone: Comment on above: [facility] [address] [place], [place], [address] Comprehensive metabolic 2000 panel 3.7 g/dL Normal 2.2-4.2 Comprehensi ve Internal Medicine Work Phone: Comment on above: [facility] [address] [place], [place], [address] Comprehensive metabolic 2000 panel 1.06 mg/dL Abnormal 0.55-1.02 Comprehensi ve Internal Medicine Work Phone: Comment on above: The validity of the calculated GFR AND GFRAA in patients over70 years has not been determined. Clinical correlation isessential. [facility] [address] [place], [place], [id number] Influenza A&B Viral Culture (09592)Ordered By: Automotive Engineering Teacher on 09-12-2018 FLUV identified Org specific cx Nom (Unsp spec) PFLUA Abnormal [facility] Work Phone: Comment on above: PositiveInfluenza A detected.. PATIENT NOT FASTINGP ERFORMED BY: ALEX Secondbrain Surface TensionLifeCare Hospitals of [facility] [place] [id number] Information: SRC: URINE JASON CULTURE-IDENTIFICA [place] (08627)Ordered By: Automotive Engineering Teacher on 09-12-2018 Bacteria identified Cx Nom (U) Final report Normal [facility] Work Phone: Comment on above: PATIENT NOT FASTINGP ERFORMED BY: [facility] Bgrqao8090 AbloomyLifeCare Hospitals [facility] [place] [id number] Information: SRC: Bacteria identified Cx Nom (U) NG36 Normal [facility] Work Phone: Comment on above: No growth in 36 - 48 hours. PATIENT NOT FASTINGP ERFORMED BY: [facility] Sxgqjb1698 AbloomyLifeCare Hospitals of [place] [id number] Information: SRC: Urinalysis, Office ([id number])Or dered By: William Robertson on 09-12-2018 Bilirubin Ql (U) Negative Normal Comprehe nsive Internal Medicine Work Phone: Glucose Test strip mass conc (U) Negative Normal [facility] Work Phone: Hemoglobin Ql (U) +++ Abnormal Compreh ensive Internal Medicine Work Phone: Ketones Ql (U) Negative Normal Comprehens shanta Internal Medicine Work Phone: Leukocyte esterase Test strip Ql (U) Large Normal [facility] Work Phone: Nitrite Ql (U) Negative Normal Comprehens shanta Internal Medicine Work Phone: pH (U) 6 [pH] Abnormal [facility] Work Phone: Protein Ql (U) Negative Normal Comprehens shanta Internal Medicine Work Phone: Specific gravity Relative Density (U) 1.020 1 Normal Comprehensi ve Internal Medicine Work Phone: Urobilinogen mass/time (24H U) Normal Normal [facility] Work Phone: Urinalysis, Office ([id number])Or dered By: William Lara on 09-12-2018 Bilirubin Ql (U) Negative Normal Comprehe nsive Internal Medicine; [facility] Work Phone: Glucose Test strip (U) [Mass/Vol] Negative Normal [facility]; [facility] Work Phone: Ketones Ql (U) Negative Normal Comprehens shanta Internal Medicine; [facility] Work Phone: Nitrite Ql (U) Negative Normal Comprehens shanta Internal Medicine; [facility] Work Phone: Protein Ql (U) Negative Normal Comprehens shanta Internal Medicine; [facility] Work Phone: CALCIFEDIOL ([id number])Ordered B y: Automotive Engineering Teacher on 12-13-2017 25-Hydroxyvitamin D2+25-Hydroxyvitamin D3 mass conc 36.7 ng/mL Normal 30.0-100.0 [facility] Work Phone: Comment on above: Vitamin D deficiency has been defined by the [place] ofMedicine and an Endocrine Society practice guideline as alevel of serum 25-OH vitamin D less than 20 ng/mL (1,2).The Endocrine Society went on to further define vitamin Dinsufficiency as a level between 21 and 29 ng/mL (2).1. IOM ([place] of Medicine). 2010. Dietary reference intakes for calcium and D. [place]: The National Academies Press.2. Arcelia MF, Anastacio KEN, Shweta RODRÍGUEZ, et al. Evaluation, treatment, and prevention of vitamin D deficiency: an Endocrine Society clinical practice guideline. JCEM. 2010; 96(7):1911-30. PATIENT WAS FASTINGP ERFORMED BY: [place] [facility]Wal[facility] [facility] [id number] CBC, Platelets & Auto Diff ( [id number])Ordered By: Automotive Engineering Teacher on 12-13-2017 Basophils #/vol (Bld) 0.0 {x10E3/uL} Normal 0.0-0.2 [facility] Work Phone: Comment on above: PATIENT WAS FASTINGP ERFORMED BY: [place] [address] [facility] [id number] Basophils (Bld) [#/Vol] 0.0 10*3/uL Normal 0.0-0.2 [facility]; [facility] Work Phone: Basophils Auto #/vol (Bld) 0.0 {x10E3/uL} Normal 0.0-0.2 [facility] Work Phone: Basophils/100 WBC (Bld) 1 % Normal [facility] Work Phone: Comment on above: PATIENT WAS FASTINGP ERFORMED BY: [place] [address] [facility] [id number] Basophils/100 WBC Auto (Bld) 1 % Normal [facility] Work Phone: Eosinophils #/vol (Bld) 0.3 {x10E3/uL} Normal 0.0-0.4 [facility] Work Phone: Comment on above: PATIENT WAS FASTINGP ERFORMED BY: [facility] [facility] [id number] Eosinophils (Bld) [#/Vol] 0.3 10*3/uL Normal 0.0-0.4 [facility]; [facility] Work Phone: Eosinophils Auto #/vol (Bld) 0.3 {x10E3/uL} Normal 0.0-0.4 [facility] Work Phone: Eosinophils/100 WBC (Bld) 10 % Normal [facility] Work Phone: Comment on above: PATIENT WAS FASTINGP ERFORMED BY: ALEX [place] [facility]Wal[facility] [facility] [id number] Eosinophils/100 WBC Auto (Bld) 10 % Normal [facility] Work Phone: Erythrocyte distribution width Auto Ratio (RBC) 13.8 % Normal 12.3-15.4 [facility] Work Phone: Erythrocyte distribution width Ratio (RBC) 13.8 % Normal 12.3-15.4 [facility] Work Phone: Comment on above: PATIENT WAS FASTINGP ERFORMED BY: ALEX [facility] Sqyueb6[address] [facility] [id number] Hematocrit Auto Volume Fraction (Bld) 35.2 % Normal 34.0-46.6 [facility] Work Phone: Hematocrit Volume Fraction (Bld) 35.2 % Normal 34.0-46.6 [facility] Work Phone: Comment on above: PATIENT WAS FASTINGP ERFORMED BY: ALEX [facility] [facility] [id number] Hemoglobin mass conc (Bld) 11.5 g/dL Normal 11.1-15.9 [facility] Work Phone: Comment on above: PATIENT WAS FASTINGP ERFORMED BY: [facility] Hazpsk6[address] [facility] [id number] Immature granulocytes #/vol (Bld) 0.0 {x10E3/uL} Normal 0.0-0.1 [facility] Work Phone: Comment on above: PATIENT WAS FASTINGP ERFORMED BY: [facility] [facility] [id number] Immature granulocytes (Bld) [#/Vol] 0.0 10*3/uL Normal 0.0-0.1 [facility]; [facility] Work Phone: Immature granulocytes/100 WBC (Bld) 0 % Normal [facility] Work Phone: Comment on above: PATIENT WAS FASTINGP ERFORMED BY: ALEX [facility] [facility] [id number] Lymphocytes #/vol (Bld) 1.4 {x10E3/uL} Normal 0.7-3.1 [facility] Work Phone: Comment on above: PATIENT WAS FASTINGP ERFORMED BY: [place] [address] [facility] [id number] Lymphocytes (Bld) [#/Vol] 1.4 10*3/uL Normal 0.7-3.1 [facility]; [facility] Work Phone: Lymphocytes Auto #/vol (Bld) 1.4 {x10E3/uL} Normal 0.7-3.1 [facility] Work Phone: Lymphocytes/100 WBC (Bld) 40 % Normal [facility] Work Phone: Comment on above: PATIENT WAS FASTINGP ERFORMED BY: ALEX [place] [address] [facility] [id number] Lymphocytes/100 WBC Auto (Bld) 40 % Normal [facility] Work Phone: MCH Auto Entitic mass (RBC) 29.5 pg Normal 26.6-33.0 [facility] Work Phone: MCH Entitic mass (RBC) 29.5 pg Normal 26.6-33.0 [facility] Internal Medicine Work Phone: Comment on above: PATIENT WAS FASTINGP ERFORMED BY: [place] [address] [facility] [id number] MCHC Auto mass conc (RBC) 32.7 g/dL Normal 31.5-35.7 [facility] Work Phone: MCHC mass conc (RBC) 32.7 g/dL Normal 31.5-35.7 [facility] Work Phone: Comment on above: PATIENT WAS FASTINGP ERFORMED BY: ALEX [place] [address] [facility] [id number] MCV Auto Entitic volume (RBC) 90 fL Normal 79-97 [facility] Work Phone: MCV Entitic volume (RBC) 90 fL Normal 79-97 [facility] Work Phone: Comment on above: PATIENT WAS FASTINGP ERFORMED BY: [place] ChamberChristina [place] 5[address]6470 [facility] [id number] Monocytes #/vol (Bld) 0.1 {x10E3/uL} Normal 0.1-0.9 [facility] Work Phone: Comment on above: PATIENT WAS FASTINGP ERFORMED BY: SecondbrainDonald [place] [address] [facility] [id number] Monocytes (Bld) [#/Vol] 0.1 10*3/uL Normal 0.1-0.9 [facility]; [facility] Work Phone: Monocytes Auto #/vol (Bld) 0.1 {x10E3/uL} Normal 0.1-0.9 [facility] Work Phone: Monocytes/100 WBC (Bld) 3 % Normal [facility] Work Phone: Comment on above: PATIENT WAS FASTINGP ERFORMED BY: [place] ChamberChristina [place] [address] [facility] [id number] Monocytes/100 WBC Auto (Bld) 3 % Normal [facility] Work Phone: Neutrophils #/vol (Bld) 1.6 {x10E3/uL} Normal 1.4-7.0 [facility] Work Phone: Comment on above: PATIENT WAS FASTINGP ERFORMED BY: [facility] [facility] [id number] Neutrophils (Bld) [#/Vol] 1.6 10*3/uL Normal 1.4-7.0 [facility]; [facility] Work Phone: Neutrophils Auto #/vol (Bld) 1.6 {x10E3/uL} Normal 1.4-7.0 [facility] Work Phone: Neutrophils/100 WBC (Bld) 46 % Normal [facility] Work Phone: Comment on above: PATIENT WAS FASTINGP ERFORMED BY: [facility] [facility] [id number] Neutrophils/100 WBC Auto (Bld) 46 % Normal [facility] Work Phone: Platelets #/vol (Bld) 202 {x10E3/uL} Normal 150-379 [facility] Work Phone: Comment on above: PATIENT WAS FASTINGP ERFORMED BY: [place] [address] [facility] [id number] Platelets (Bld) [#/Vol] 202 10*3/uL Normal 150-379 [facility]; [facility] Work Phone: Platelets Auto #/vol (Bld) 202 {x10E3/uL} Normal 150-379 [facility] Work Phone: RBC #/vol (Bld) 3.90 {x10E6/uL} Normal 3.77-5.28 Comp [facility] Internal Medicine Work Phone: Comment on above: PATIENT WAS FASTINGP ERFORMED BY: [place] [address] [facility] [id number] RBC (Bld) [#/Vol] 3.90 10*6/uL Normal 3.77-5.28 Compr ensive [facility]; [facility] Work Phone: RBC Auto #/vol (Bld) 3.90 {x10E6/uL} Normal 3.77-5.28 [facility] Work Phone: WBC #/vol (Bld) 3.4 {x10E3/uL} Normal 3.4-10.8 [facility] Internal Medicine Work Phone: Comment on above: PATIENT WAS FASTINGP ERFORMED BY: [facility] [facility] [id number] WBC (Bld) [#/Vol] 3.4 10*3/uL Normal 3.4-10.8 [facility]; [facility] Work Phone: WBC Auto #/vol (Bld) 3.4 {x10E3/uL} Normal 3.4-10.8 [facility] Work Phone: LIPID PANEL ([id number])Ordered B y: Automotive Engineering Teacher on 12-13-2017 Cholesterol in HDL mass conc 72 mg/dL Normal [facility] Work Phone: Comment on above: PATIENT WAS FASTINGP ERFORMED BY: ALEX Villegas[address] [facility] Internationalin [place] [id number] Cholesterol in LDL mass conc 101 mg/dL Abnormal 0-99 [facility] Work Phone: Comment on above: PATIENT WAS FASTINGP ERFORMED BY: ALEX Villegas[address] [facility] InternationalLifeCare [facility] [id number] Cholesterol in LDL/Cholesterol in HDL mass ratio 1.4 {ratio} Normal 0.0-3.2 [facility] Work Phone: Comment on above: LDL/HDL Ratio Men Wo men 1/2 Avg.Risk 1.0 1.5 Avg.Risk 3.6 3.2 2X Avg.Risk 6.2 5.0 3X Avg.Risk 8.0 6.1 PATIENT WAS FASTINGP ERFORMED BY: ALEX Villegas[address] [facility] Internationalgrey[facility] [place] [id number] Cholesterol in VLDL mass conc 9 mg/dL Normal 5-40 [facility] Work Phone: Comment on above: PATIENT WAS FASTINGP ERFORMED BY: ALEX Villegas[address] [facility] InternationalLifeCare [facility] [place] [id number] Cholesterol mass conc 182 mg/dL Normal 100-199 Com prehensive Internal Medicine Work Phone: Comment on above: PATIENT WAS FASTINGP ERFORMED BY: ALEX Manleylin[address] [facility] Internationalin [place] [id number] Triglyceride mass conc 43 mg/dL Normal 0-149 Co mprehensive [facility] Work Phone: Comment on above: PATIENT WAS FASTINGP ERFORMED BY: ALEX Manleylin[address] [facility] InternationalLifeCare [facility] [id number] Metabolic Panel, Comprehensi ve ([id number])Ordered By: Automotive Engineering Teacher on 12-13-2017 Albumin mass conc 4.3 g/dL Normal 3.5-4.8 [facility] Internal Medicine Work Phone: Comment on above: PATIENT WAS FASTINGP ERFORMED BY: ALEX LabCodaniella ManleyBeasrb4195 Avila RoadDublin [place] [id number] Albumin/Globulin mass ratio 1.7 {ratio} Normal 1.2-2.2 [facility] Internal Medicine Work Phone: Comment on above: PATIENT WAS FASTINGP ERFORMED BY: ALEX LabCodaniella ManleyCvscyz0910 Avila RoadDublin [place] [id number] ALP [Catalytic activity/Vol] 79 U/L Normal 39-117 [facility]; [facility] Internal Medicine Work Phone: ALP enzyme act/vol 79 [iU]/L Normal 39-117 [facility] Internal Medicine Work Phone: Comment on above: PATIENT WAS FASTINGP ERFORMED BY: ALEX LabTravis ManleyVbggzg8425 Avila RoadDuin [place] [id number] ALT [Catalytic activity/Vol] 9 U/L Normal 0-32 [facility]; [facility] Internal Medicine Work Phone: ALT enzyme act/vol 9 [iU]/L Normal 0-32 [facility] Internal Medicine Work Phone: Comment on above: PATIENT WAS FASTINGP ERFORMED BY: ALEX LabTravis ManleyAudsmj6037 [address] RoadColumbus Regional Healthcare Systemin [place] [id number] AST [Catalytic activity/Vol] 12 U/L Normal 0-40 [facility]; [facility] Internal Medicine Work Phone: AST enzyme act/vol 12 [iU]/L Normal 0-40 [facility] Internal Medicine Work Phone: Comment on above: PATIENT WAS FASTINGP ERFORMED BY: ALEX LabCodaniella ManleyMykimq5542 [address] RoadDublin [place] [id number] Bilirubin mass conc 0.4 mg/dL Normal 0.0-1.2 [facility] Internal Medicine Work Phone: Comment on above: PATIENT WAS FASTINGP ERFORMED BY: ALEX LabCo Ewkokq4761 [facility] [id number] Calcium mass conc 9.3 mg/dL Normal 8.7-10.3 Compreh ensive Internal Medicine Work Phone: Comment on above: PATIENT WAS FASTINGP ERFORMED BY: ALEX [facility] Nhyykz7577 [facility] [id number] Chloride molar conc 104 mmol/L Normal 96-106 Compr ehensive Internal Medicine Work Phone: Comment on above: PATIENT WAS FASTINGP ERFORMED BY: ALEX LabCo Gixymy5672 [facility] [id number] CO2 molar conc 22 mmol/L Normal 18-29 Comprehens shanta Internal Medicine Work Phone: Comment on above: Effective December 23, 2017 Carbon Dioxide, Total reference interval will be changing to: Age Male Female 0 days - 30 days 16 - 29 16 - 29 31 days - 1 year 15 - 25 15 - 25 2 years - 5 years 17 - 26 17 - 26 6 years - 12 years 19 - 27 19 - 27 >12 years 20 - 29 20 - 29 PATIENT WAS FASTINGP ERFORMED BY: ALEX [facility] Odrtqe8566 [facility] [id number] Creatinine mass conc 0.84 mg/dL Normal 0.57-1.00 Comp rehensive Internal Medicine Work Phone: Comment on above: PATIENT WAS FASTINGP ERFORMED BY: ALEX LabCo Pbihoz6914 [facility] [id number] GFR/1.73 sq M predicted among blacks CKD-EPI vol rate/area (S/P/Bld) 80 mL/min/1.73 Normal [facility] Work Phone: Comment on above: PATIENT WAS FASTINGP ERFORMED BY: LabCo Glluok4[address] [facility] [id number] GFR/1.73 sq M predicted among non-blacks CKD-EPI vol rate/area (S/P/Bld) 70 mL/min/1.73 Normal Comprehensiv e Internal Medicine Work Phone: Comment on above: PATIENT WAS FASTINGP ERFORMED BY: ALEX [facility] Zbnsqn6801 [address] RoadDublin [place] [id number] Globulin Calculated mass conc (S) 2.6 g/dL Normal 1.5-4.5 [facility] Work Phone: Globulin mass conc (S) 2.6 g/dL Normal 1.5-4.5 Co mprehensive [facility] Work Phone: Comment on above: PATIENT WAS FASTINGP ERFORMED BY: ALEX [facility] Aiueyi2680 [address] RoadDublin [place] [id number] Glucose mass conc 88 mg/dL Normal 65-99 Compreh ensive Internal Medicine Work Phone: Comment on above: PATIENT WAS FASTINGP ERFORMED BY: ALEX [facility] Pghjso9051 [address] RoadDublin [place] [id number] Potassium molar conc 4.5 mmol/L Normal 3.5-5.2 Comp rehensive Internal Medicine Work Phone: Comment on above: PATIENT WAS FASTINGP ERFORMED BY: ALEX LabCo Zjbcdp2862 [address] RoadDublin [place] [id number] Protein mass conc 6.9 g/dL Normal 6.0-8.5 Compreh ensive Internal Medicine Work Phone: Comment on above: PATIENT WAS FASTINGP ERFORMED BY: ALEX LabCodaniella Evjrxj8175 [address] RoadDublin [place] [id number] Sodium molar conc 142 mmol/L Normal 134-144 Compreh ensive Internal Medicine Work Phone: Comment on above: PATIENT WAS FASTINGP ERFORMED BY: ALEX [facility] Whyqdt2889 [address] RoadDublin [place] [id number] Urea nitrogen mass conc 19 mg/dL Normal 8-27 [facility] Work Phone: Comment on above: PATIENT WAS FASTINGP ERFORMED BY: [facility] Maztja11[address] RoadDublin [place] [id number] Urea nitrogen/Creatinine mass ratio 23 mg/mg Normal 12-28 [facility] Work Phone: Comment on above: PATIENT WAS FASTINGP ERFORMED BY: [facility] [facility] [id number] TSH ([id number])Ordered By: Syste m Holistic Nutritionist on 12-13-2017 Thyrotropin Qn 2.460 {uIU/mL} Normal 0.450-4.500 [facility] Internal Medicine Work Phone: Comment on above: PATIENT WAS FASTINGP ERFORMED BY: [facility] [facility] [id number] CBC, Platelets & Auto Diff ( [id number])Ordered By: Automotive Engineering Teacher on 04-03-2017 Basophils #/vol (Bld) 0.0 {x10E3/uL} Normal 0.0-0.2 [facility] Work Phone: Comment on above: mar 2017; PATIENT W FASTINGPERFORMED BY: [facility] [facility] [id number] Basophils (Bld) [#/Vol] 0.0 10*3/uL Normal 0.0-0.2 [facility]; [facility] Work Phone: Basophils Auto #/vol (Bld) 0.0 {x10E3/uL} Normal 0.0-0.2 [facility] Work Phone: Basophils/100 WBC (Bld) 1 % Normal [facility] Work Phone: Comment on above: mar 2017; PATIENT W FASTINGPERFORMED BY: [facility] [facility] [id number] Basophils/100 WBC Auto (Bld) 1 % Normal [facility] Work Phone: Eosinophils #/vol (Bld) 0.2 {x10E3/uL} Normal 0.0-0.4 [facility] Work Phone: Comment on above: mar 2017; PATIENT W FASTINGPERFORMED BY: [place] [address] [facility] [id number] Eosinophils (Bld) [#/Vol] 0.2 10*3/uL Normal 0.0-0.4 [facility]; [facility] Work Phone: Eosinophils Auto #/vol (Bld) 0.2 {x10E3/uL} Normal 0.0-0.4 [facility] Work Phone: Eosinophils/100 WBC (Bld) 6 % Normal [facility] Work Phone: Comment on above: mar 2017; PATIENT W FASTINGPERFORMED BY: ALEX VDP70 [address] Ad.IQECU [facility] [id number] Eosinophils/100 WBC Auto (Bld) 6 % Normal [facility] Work Phone: Erythrocyte distribution width Auto Ratio (RBC) 13.8 % Normal 12.3-15.4 [facility] Work Phone: Erythrocyte distribution width Ratio (RBC) 13.8 % Normal 12.3-15.4 [facility] Work Phone: Comment on above: mar 2017; PATIENT W FASTINGPERFORMED BY: Climateminder70 [address] Ad.IQECU [facility] [id number] Hematocrit Auto Volume Fraction (Bld) 35.4 % Normal 34.0-46.6 [facility] Work Phone: Hematocrit Volume Fraction (Bld) 35.4 % Normal 34.0-46.6 [facility] Work Phone: Comment on above: mar 2017; PATIENT W FASTINGPERFORMED BY: ALEX VDP70 AvilaSiva TherapeuticsLifeCare Hospitals [facility] [id number] Hemoglobin mass conc (Bld) 12.2 g/dL Normal 11.1-15.9 [facility] Work Phone: Comment on above: mar 2017; PATIENT W FASTINGPERFORMED BY: Climateminder70 [address] Ad.IQEC[facility] [id number] Immature granulocytes #/vol (Bld) 0.0 {x10E3/uL} Normal 0.0-0.1 [facility] Work Phone: Comment on above: mar 2017; PATIENT W FASTINGPERFORMED BY: Climateminder70 [address] Ad.IQEC[facility] [id number] Immature granulocytes (Bld) [#/Vol] 0.0 10*3/uL Normal 0.0-0.1 [facility]; [facility] Work Phone: Immature granulocytes/100 WBC (Bld) 0 % Normal [facility] Work Phone: Comment on above: mar 2017; PATIENT W FASTINGPERFORMED BY: [employer] Jwonrv0735 [facility] [id number] Lymphocytes #/vol (Bld) 1.5 {x10E3/uL} Normal 0.7-3.1 [facility] Work Phone: Comment on above: mar 2017; PATIENT W FASTINGPERFORMED BY: SecondbrainCrownpoint Healthcare FacilityLhlcvn1738 [facility] [id number] Lymphocytes (Bld) [#/Vol] 1.5 10*3/uL Normal 0.7-3.1 [facility]; [facility] Internal Medicine Work Phone: Lymphocytes Auto #/vol (Bld) 1.5 {x10E3/uL} Normal 0.7-3.1 [facility] Work Phone: Lymphocytes/100 WBC (Bld) 41 % Normal [facility] Work Phone: Comment on above: mar 2017; PATIENT W FASTINGPERFORMED BY: [employer] Cwgnhb6794 [facility] [id number] Lymphocytes/100 WBC Auto (Bld) 41 % Normal [facility] Work Phone: MCH Auto Entitic mass (RBC) 29.9 pg Normal 26.6-33.0 [facility] Internal Medicine Work Phone: MCH Entitic mass (RBC) 29.9 pg Normal 26.6-33.0 [facility] Internal Medicine Work Phone: Comment on above: mar 2017; PATIENT W FASTINGPERFORMED BY: SecondbrainDonald [place] [address] [facility] [id number] MCHC Auto mass conc (RBC) 34.5 g/dL Normal 31.5-35.7 [facility] Work Phone: MCHC mass conc (RBC) 34.5 g/dL Normal 31.5-35.7 Comp rehensive Internal Medicine Work Phone: Comment on above: mar 2017; PATIENT W FASTINGPERFORMED BY: SecondbrainCrownpoint Healthcare FacilityNetbgx8903 [facility] [id number] MCV Auto Entitic volume (RBC) 87 fL Normal 79-97 [facility] Work Phone: MCV Entitic volume (RBC) 87 fL Normal 79-97 [facility] Work Phone: Comment on above: mar 2017; PATIENT W FASTINGPERFORMED BY: [employer] Mlmtko4433 [facility] [id number] Monocytes #/vol (Bld) 0.2 {x10E3/uL} Normal 0.1-0.9 [facility] Work Phone: Comment on above: mar 2017; PATIENT W FASTINGPERFORMED BY: [employer] Vadoip3579 [facility] [id number] Monocytes (Bld) [#/Vol] 0.2 10*3/uL Normal 0.1-0.9 [facility]; [facility] Work Phone: Monocytes Auto #/vol (Bld) 0.2 {x10E3/uL} Normal 0.1-0.9 [facility] Work Phone: Monocytes/100 WBC (Bld) 5 % Normal [facility] Work Phone: Comment on above: mar 2017; PATIENT W FASTINGPERFORMED BY: [employer] Avbyoy6685 [facility] [id number] Monocytes/100 WBC Auto (Bld) 5 % Normal [facility] Work Phone: Neutrophils #/vol (Bld) 1.6 {x10E3/uL} Normal 1.4-7.0 [facility] Work Phone: Comment on above: mar 2017; PATIENT W FASTINGPERFORMED BY: [employer] Bnblgc3078 [place] [facility] [id number] Neutrophils (Bld) [#/Vol] 1.6 10*3/uL Normal 1.4-7.0 [facility]; [facility] Work Phone: Neutrophils Auto #/vol (Bld) 1.6 {x10E3/uL} Normal 1.4-7.0 [facility] Work Phone: Neutrophils/100 WBC (Bld) 47 % Normal [facility] Work Phone: Comment on above: mar 2017; PATIENT W FASTINGPERFORMED BY: [employer] Uezrgy[address] P[facility] InternationalLifeCare Hospit[facility] [id number] Neutrophils/100 WBC Auto (Bld) 47 % Normal [facility] Work Phone: Platelets #/vol (Bld) 208 {x10E3/uL} Normal 150-379 [facility] Work Phone: Comment on above: mar 2017; PATIENT W FASTINGPERFORMED BY: VDP70 [place] Ad.[facility]ECU [facility] [id number] Platelets (Bld) [#/Vol] 208 10*3/uL Normal 150-379 [facility]; [facility] Work Phone: Platelets Auto #/vol (Bld) 208 {x10E3/uL} Normal 150-379 [facility] Work Phone: RBC #/vol (Bld) 4.08 {x10E6/uL} Normal 3.77-5.28 [facility] Work Phone: Comment on above: mar 2017; PATIENT W FASTINGPERFORMED BY: [employer] [facility] [id number] RBC (Bld) [#/Vol] 4.08 10*6/uL Normal 3.77-5.28 [facility]; [facility] Work Phone: RBC Auto #/vol (Bld) 4.08 {x10E6/uL} Normal 3.77-5.28 [facility] Work Phone: WBC #/vol (Bld) 3.6 {x10E3/uL} Normal 3.4-10.8 Compr [facility] Internal Medicine Work Phone: Comment on above: mar 2017; PATIENT W FASTINGPERFORMED BY: ALEX Villegas6370 [facility] [id number] WBC (Bld) [#/Vol] 3.6 10*3/uL Normal 3.4-10.8 Compre [facility]; [facility] Work Phone: WBC Auto #/vol (Bld) 3.6 {x10E3/uL} Normal 3.4-10.8 [facility] Work Phone: Lipid Panel ([id number])Ordered B y: Automotive Engineering Teacher on 04-03-2017 Cholesterol in HDL mass conc 86 mg/dL Normal [facility] Work Phone: Comment on above: mar 2017; PATIENT W FASTINGPERFORMED BY: ALEX Manleylin6370 [facility] [id number]; OV 9 Cholesterol in LDL mass conc 113 mg/dL Abnormal 0-99 [facility] Work Phone: Comment on above: mar 2017; PATIENT W FASTINGPERFORMED BY: ALEX Villegas6370 [facility] [id number]; OV 9 Cholesterol in LDL/Cholesterol in HDL mass ratio 1.3 {ratio_units} Normal 0.0-3.2 [facility] Work Phone: Comment on above: LDL/HDL Ratio Men Wo men 1/2 Avg.Risk 1.0 1.5 Avg.Risk 3.6 3.2 2X Avg.Risk 6.2 5.0 3X Avg.Risk 8.0 6.1 mar 2017; PATIENT W FASTINGPERFORMED BY: ALEX LabTravis ManleyPfrzzx7198 [facility] [id number]; OV 9 Cholesterol in VLDL mass conc 13 mg/dL Normal 5-40 [facility] Work Phone: Comment on above: mar 2017; PATIENT W FASTINGPERFORMED BY: CB [facility] Wmkiql1708 [address] Roadblin [place] [id number]; OV 04/12 Cholesterol mass conc 212 mg/dL Abnormal 100-199 Com prehensive [facility] Medicine Work Phone: Comment on above: mar 2017; PATIENT W FASTINGPERFORMED BY: CB [facility] Vnbebs5602 [address] RoadDublin [place] [id number]; OV 04/12 Triglyceride mass conc 64 mg/dL Normal 0-149 [facility] careehens[facility] Work Phone: Comment on above: mar 2017; PATIENT W FASTINGPERFORMED BY: CB [facility] Eeozsm1411 [address] RoadDublin [place] [id number]; OV 04/12 MICROALBUMINOrdered By: Syst em Holistic Nutritionist on 04-03-2017 Albumin DL <= 20 mg/L mass conc (U) 4.9 ug/mL Normal [facility] Work Phone: Comment on above: mar 2017; PATIENT W FASTINGPERFORMED BY: [facility] Infbcc3810 [address] RoadDuin [place] [id number] Albumin/Creatinine mass ratio (U) 6.1 {mg/g_creat} Normal 0.0-30.0 [facility] Work Phone: Comment on above: mar 2017; PATIENT W FASTINGPERFORMED BY: [facility] Vaoala1293 [address]Dublin [place] [id number] Creatinine mass conc (U) 79.9 mg/dL Normal [facility] Work Phone: Comment on above: mar 2017; PATIENT W FASTINGPERFORMED BY: [facility] Unlxtp7141 [address]Dublin [place] [id number] Metabolic Panel, Comprehensi ve (66025)Ordered By: Automotive Engineering Teacher on 04-03-2017 Albumin mass conc 4.5 g/dL Normal 3.5-4.8 Compreh ensive Internal Medicine Work Phone: Comment on above: mar 2017; PATIENT W FASTINGPERFORMED BY: [facility] Cwxing2803 [address]Dublin [place] [id number] Albumin/Globulin mass ratio 1.5 {ratio} Normal 1.2-2.2 [facility] Internal Medicine Work Phone: Comment on above: mar 2017; PATIENT W FASTINGPERFORMED BY: ALEX [facility] Yyrhaw[address] Ad.IQblin [place] [id number] ALP [Catalytic activity/Vol] 97 U/L Normal 39-117 [facility]; [facility] Internal Medicine Work Phone: ALP enzyme act/vol 97 [iU]/L Normal 39-117 [facility] Internal Medicine Work Phone: Comment on above: mar 2017; PATIENT W FASTINGPERFORMED BY: ALEX LabUniversity Of Missouri Children'S HospitalDggusa0519 [address]bl[address] [place] [id number] ALT [Catalytic activity/Vol] 13 U/L Normal 0-32 [facility] Internal Medicine; [facility] Internal Medicine Work Phone: ALT enzyme act/vol 13 [iU]/L Normal 0-32 [facility] Internal Medicine Work Phone: Comment on above: mar 2017; PATIENT W FASTINGPERFORMED BY: [facility] Centerlin[address] Ad.IQColumbus Regional Healthcare Systemin [place] [id number] AST [Catalytic activity/Vol] 17 U/L Normal 0-40 [facility] Internal Medicine; [facility] Internal Medicine Work Phone: AST enzyme act/vol 17 [iU]/L Normal 0-40 [facility] Internal Medicine Work Phone: Comment on above: mar 2017; PATIENT W FASTINGPERFORMED BY: LabUniversity [facility] Children'S HospitalOrxmgz5904 [address] Ad.IQColumbus Regional Healthcare Systemin [place] [id number] Bilirubin mass conc 0.6 mg/dL Normal 0.0-1.2 [facility] Internal Medicine Work Phone: Comment on above: mar 2017; PATIENT W FASTINGPERFORMED BY: [facility] Ugilbq74[address] Ad.IQColumbus Regional Healthcare Systemin [place] [id number] Calcium mass conc 9.5 mg/dL Normal 8.7-10.3 [facility] Internal Medicine Work Phone: Comment on above: mar 2017; PATIENT W FASTINGPERFORMED BY: [facility]Wal[facility]6370 [facility] [id number] Chloride molar conc 102 mmol/L Normal 96-106 Compr ensive Internal Medicine Work Phone: Comment on above: mar 2017; PATIENT W FASTINGPERFORMED BY: ALEX [facility] Loqtid7183 [facility] [id number] CO2 molar conc 22 mmol/L Normal 18-29 Comprehens shanta Internal Medicine Work Phone: Comment on above: mar 2017; PATIENT W FASTINGPERFORMED BY: [facility] Cakdaw3843 [facility] [id number] Creatinine mass conc 0.89 mg/dL Normal 0.57-1.00 Comp [facility] Internal [facility] Work Phone: Comment on above: mar 2017; PATIENT W FASTINGPERFORMED BY: [facility]Wal[facility]6[address] [facility] [id number] GFR/1.73 sq M predicted among blacks CKD-EPI vol rate/area (S/P/Bld) 75 mL/min/1.73 Normal [facility] Work Phone: Comment on above: mar 2017; PATIENT W FASTINGPERFORMED BY: [facility] Ictttd8918 [facility] [id number] GFR/1.73 sq M predicted among non-blacks CKD-EPI vol rate/area (S/P/Bld) 65 mL/min/1.73 Normal Comprehensiv e Internal Medicine Work Phone: Comment on above: mar 2017; PATIENT W FASTINGPERFORMED BY: [facility] Rmsepu5087 [facility] [id number] Globulin Calculated mass conc (S) 3.1 g/dL Normal 1.5-4.5 [facility] Work Phone: Globulin mass conc (S) 3.1 g/dL Normal 1.5-4.5 Co [facility] centerensive Internal Medicine Work Phone: Comment on above: mar 2017; PATIENT W FASTINGPERFORMED BY: [facility] Hdszxj3951 [facility] [id number] Glucose mass conc 86 mg/dL Normal 65-99 Compreh ensive Internal Medicine Work Phone: Comment on above: mar 2017; PATIENT W FASTINGPERFORMED BY: ALEX [facility] Mjmxur5432 Av[address] RoadColumbus Regional Healthcare Systemin [place] [id number] Potassium molar conc 4.6 mmol/L Normal 3.5-5.2 Comp rehensive Internal Medicine Work Phone: Comment on above: mar 2017; PATIENT W FASTINGPERFORMED BY: CB [facility] Tlntko4882 Av[address] RoadColumbus Regional Healthcare Systemin [place] [id number] Protein mass conc 7.6 g/dL Normal 6.0-8.5 Compreh ensive Internal Medicine Work Phone: Comment on above: mar 2017; PATIENT W FASTINGPERFORMED BY: ALEX [facility] Blwzqj1274 [address] Ad.IQColumbus Regional Healthcare Systemin [place] [id number] Sodium molar conc 143 mmol/L Normal 134-144 Compreh ensive Internal Medicine Work Phone: Comment on above: mar 2017; PATIENT W FASTINGPERFORMED BY: ALEX [facility] Dhbpzx0328 [address] Ad.IQECU Health [facility] [id number] Urea nitrogen mass conc 17 mg/dL Normal 8-27 [facility] Work Phone: Comment on above: mar 2017; PATIENT W FASTINGPERFORMED BY: [facility] Bnkgfj8985 [address] Ad.IQECU Health Roan[facility]-Ch[facility] [id number] Urea nitrogen/Creatinine mass ratio 19 mg/mg Normal 12-28 [facility] Work Phone: Comment on above: mar 2017; PATIENT W FASTINGPERFORMED BY: [facility] Aqecjv[address] [facility]in [place] [id number] Microscopic ExaminationOrder ed By: Automotive Engineering Teacher on 04-03-2017 Bacteria LM.HPF #/area (Urine sed) Few Normal [facility] Work Phone: Comment on above: PATIENT WAS FASTINGP ERFORMED BY: ALEX [facility] Phvrop[address] [facility]in [place] [id number] Epithelial cells LM.HPF #/area (Urine sed) 0-10 Normal 0 - 10 [facility] Work Phone: Comment on above: PATIENT WAS FASTINGP ERFORMED BY: ALEX [facility] Rmogau3142 [address]Dublin [place] [id number] Mucus LM Ql (Urine sed) Present Normal [facility] Work Phone: Mucus Ql (Urine sed) Present Normal Comp rehensive Internal Medicine Work Phone: Comment on above: PATIENT WAS FASTINGP ERFORMED BY: CB [facility] Wyhxuh6067 [address] RoadDublin [place] [id number] RBC LM.HPF #/area (Urine sed) 0-2 Normal 0 - 2 [facility] Work Phone: Comment on above: PATIENT WAS FASTINGP ERFORMED BY: ALEX [facility] Qvusta0449 [address]Dublin [place] [id number] WBC LM.HPF #/area (Urine sed) 0-5 Normal 0 - 5 [facility] Work Phone: Comment on above: PATIENT WAS FASTINGP ERFORMED BY: ALEX [facility] Amuhbi7390 [address] RoadDublin [place] [id number] URINALYSIS ([id number])Ordered By : Automotive Engineering Teacher on 04-03-2017 Appearance Nom (U) Clear Normal Compre hensive Internal Medicine Work Phone: Comment on above: mar 2017; PATIENT W FASTINGPERFORMED BY: ALEX [facility] Ggoogt6222 [address]Dublin [place] [id number] Bilirubin Ql (U) Negative Normal Comprehe nsive Internal Medicine Work Phone: Comment on above: mar 2017; PATIENT W FASTINGPERFORMED BY: [facility] Gjmyns4252 [address]Dublin [place] [id number] Bilirubin Ql (U) Negative Normal Comprehe nsive Internal Medicine; [facility] Work Phone: Color Nom (U) Yellow Normal Comprehensi ve Internal Medicine Work Phone: Comment on above: mar 2017; PATIENT W FASTINGPERFORMED BY: ALEX [facility] Fizoen0034 [address] RoadDublin [place] [id number] Glucose Ql (U) Negative Normal Comprehens shanta Internal Medicine Work Phone: Comment on above: mar 2017; PATIENT W FASTINGPERFORMED BY: ALEX [facility] Lvebav9710 [address] RoadDublin [place] [id number] Glucose Ql (U) Negative Normal Comprehens shanta [facility]; [facility] Work Phone: Hemoglobin Ql (U) 2+ Abnormal Compreh ensive Internal Medicine Work Phone: Comment on above: mar 2017; PATIENT W FASTINGPERFORMED BY: CB [facility] Mdxrba0201 [address] RoadDublin [place] [id number] Hemoglobin Test strip Ql (U) 2+ Abnormal [facility] Work Phone: Ketones Ql (U) Negative Normal Comprehens shanta [facility] Medicine Work Phone: Comment on above: mar 2017; PATIENT W FASTINGPERFORMED BY: ALEX [facility] Rakoiz5437 [address] RoadDublin [place] [id number] Ketones Ql (U) Negative Normal Comprehens shanta [facility]; [facility] Work Phone: Leukocyte esterase Test strip Ql (U) Negative Normal [facility] Work Phone: Comment on above: mar 2017; PATIENT W FASTINGPERFORMED BY: ALEX [facility] Wsedgy7888 [address]Dublin [place] [id number] Leukocyte esterase Test strip Ql (U) Negative Normal [facility]; [facility] Work Phone: Microscopic observation LM Nom (Urine sed) See below: Normal [facility] Work Phone: Comment on above: Microscopic was jared cated and was performed. mar 2017; PATIENT W FASTINGPERFORMED BY: CB [facility] Ntqaqi7116 [address] RoadDublin [place] [id number] Nitrite Ql (U) Negative Normal Comprehens shanta [facility] Medicine Work Phone: Comment on above: mar 2017; PATIENT W FASTINGPERFORMED BY: CB [facility] Tvsqix2229 [address] RoadDublin [place] [id number] Nitrite Ql (U) Negative Normal Comprehens shanta [facility]; [facility] Work Phone: Nitrite Test strip Ql (U) Negative Normal [facility] Work Phone: pH (U) 6.5 [pH] Normal 5.0-7.5 [facility] Work Phone: Comment on above: mar 2017; PATIENT W FASTINGPERFORMED BY: ALEX LabTravis ManleyBymvrr5699 [address] [employer] Internationalin [place] [id number] pH Test strip (U) 6.5 [pH] Normal 5.0-7.5 Compreh ensive Internal Medicine Work Phone: Protein Ql (U) Negative Normal Comprehens shanta [facility] Work Phone: Comment on above: mar 2017; PATIENT W FASTINGPERFORMED BY: ALEX Manleylin6370 AvilaSiva TherapeuticsLifeCare Hospitals of [facility] [id number] Protein Ql (U) Negative Normal Comprehens shanta [facility]; [facility] Work Phone: Protein Test strip Ql (U) Negative Normal [facility] Work Phone: Specific gravity Relative Density (U) 1.015 1 Normal 1.005-1.030 Comprehensi ve Internal Medicine Work Phone: Comment on above: mar 2017; PATIENT W FASTINGPERFORMED BY: ALEX Manleylin6[address] P[facility] InternationalLifeCare Hospitals [facility] [id number] Urobilinogen (U) [Mass/Vol] 1.0 mg/dL Normal 0.2-1.0 [facility]; [facility] Work Phone: Urobilinogen Test strip mass conc (U) 1.0 mg/dL Normal 0.2-1.0 Comprehensiv e Internal Medicine Work Phone: Comment on above: mar 2017; PATIENT W FASTINGPERFORMED BY: ALEX Manleylin[address] P[facility] InternationalLifeCare Hospitals [facility] [id number] Microscopic ExaminationOrder ed By: Automotive Engineering Teacher on 11-20-2016 Bacteria LM.HPF #/area (Urine sed) Few Normal [facility] Work Phone: Comment on above: PATIENT NOT FASTINGP ERFORMED BY: CB [facility] Dynhqp5713 [address] RoadDublin [place] [id number] Epithelial cells LM.HPF #/area (Urine sed) 0-10 Normal 0 - 10 [facility] Work Phone: Comment on above: PATIENT NOT FASTINGP ERFORMED BY: CB [facility] Iayrey3914 [address] RoadDublin [place] [id number] Mucus LM Ql (Urine sed) Present Normal [facility] Work Phone: Mucus Ql (Urine sed) Present Normal Comp rehensive Internal Medicine Work Phone: Comment on above: PATIENT NOT FASTINGP ERFORMED BY: CB [facility] Dnutep0623 [address] RoadDublin [place] [id number] RBC LM.HPF #/area (Urine sed) 11-30 Abnormal 0 - 2 [facility] Work Phone: Comment on above: PATIENT NOT FASTINGP ERFORMED BY: CB [facility] Koxnoi1135 [address] RoadDublin [place] [id number] WBC LM.HPF #/area (Urine sed) 6-10 Abnormal 0 - 5 [facility] Work Phone: Comment on above: PATIENT NOT FASTINGP ERFORMED BY: CB [facility] Cuifgb7349 [address] RoadDublin [place] [id number] RENAL FUNCTION PANEL (47206) Ordered By: Automotive Engineering Teacher on 11-20-2016 Albumin mass conc 4.4 g/dL Normal 3.5-4.8 Compreh ensive Internal Medicine Work Phone: Comment on above: PATIENT NOT FASTINGP ERFORMED BY: CB [facility] Laiaev5049 [address] RoadDublin [place] [id number] Calcium mass conc 9.6 mg/dL Normal 8.7-10.3 Compreh ensive Internal Medicine Work Phone: Comment on above: PATIENT NOT FASTINGP ERFORMED BY: CB [facility] Mljwhf2924 [address] RoadDublin [place] [id number] Chloride molar conc 102 mmol/L Normal 96-106 Compr ehensive Internal Medicine Work Phone: Comment on above: PATIENT NOT FASTINGP ERFORMED BY: ALEX [facility] Quqfdj4567 [address] RoadDublin [place] [id number] CO2 molar conc 20 mmol/L Normal 18-29 Comprehens shanta [facility] Work Phone: Comment on above: PATIENT NOT FASTINGP ERFORMED BY: ALEX [facility] Kyjovc4233 [address] RoadDublin [place] [id number] Creatinine mass conc 0.98 mg/dL Normal 0.57-1.00 Comp rehensive Internal Medicine Work Phone: Comment on above: PATIENT NOT FASTINGP ERFORMED BY: [facility] Gozrfq9618 [address]blin [place] [id number] GFR/1.73 sq M predicted among blacks CKD-EPI vol rate/area (S/P/Bld) 67 mL/min/1.73 Normal [facility] Work Phone: Comment on above: PATIENT NOT FASTINGP ERFORMED BY: LabWal[facility]. [facility]6370 [address] RoadColumbus Regional Healthcare Systemin [place] [id number] GFR/1.73 sq M predicted among non-blacks CKD-EPI vol rate/area (S/P/Bld) 58 mL/min/1.73 Abnormal Comprehensiv e Internal Medicine Work Phone: Comment on above: PATIENT NOT FASTINGP ERFORMED BY: [facility] Vdzebp1290 [address]blin [place] [id number] Glucose mass conc 88 mg/dL Normal 65-99 Compreh ensive Internal Medicine Work Phone: Comment on above: PATIENT NOT FASTINGP ERFORMED BY: [facility] Umfqhp[address] [facility]in [place] [id number] Phosphate mass conc 3.8 mg/dL Normal 2.5-4.5 Compr ehensive Internal Medicine Work Phone: Comment on above: PATIENT NOT FASTINGP ERFORMED BY: ALEX [facility] Uyilln9190 [address] Roadblin [place] [id number] Potassium molar conc 4.6 mmol/L Normal 3.5-5.2 Comp rehensive Internal Medicine Work Phone: Comment on above: PATIENT NOT FASTINGP ERFORMED BY: ALEX [facility] Qbiucr6306 [address] RoadDublin [place] [id number] Sodium molar conc 140 mmol/L Normal 134-144 Compreh ensive Internal Medicine Work Phone: Comment on above: PATIENT NOT FASTINGP ERFORMED BY: ALEX [facility] Yleahn9196 [address] RoadDublin [place] [id number] Urea nitrogen mass conc 15 mg/dL Normal 8- [facility] Work Phone: Comment on above: PATIENT NOT FASTINGP ERFORMED BY: ALEX [facility] Mrnzen1280 [address] RoadDublin [place] [id number] Urea nitrogen/Creatinine mass ratio 15 mg/mg Normal 12- [facility] Work Phone: Comment on above: PATIENT NOT FASTINGP ERFORMED BY: ALEX LabTravis ManleyEiivjj9355 [address] [facility]in [place] [id number] URINALYSIS ([id number])Ordered By : Automotive Engineering Teacher on 11-20-2016 Appearance Nom (U) Clear Normal Compre hensive Internal Medicine Work Phone: Comment on above: PATIENT NOT FASTINGP ERFORMED BY: ALEX [facility] Bwvugp5897 [address] RoadColumbus Regional Healthcare Systemin [place] [id number] Information: SRC:UC Bilirubin Ql (U) Negative Normal Comprehe nsive Internal Medicine Work Phone: Comment on above: PATIENT NOT FASTINGP ERFORMED BY: ALEX [facility] Qzmapx9124 [address] RoadColumbus Regional Healthcare Systemin [place] [id number] Information: SRC:UC Bilirubin Ql (U) Negative Normal Comprehe nsive Internal Medicine; [facility] Work Phone: Color Nom (U) Yellow Normal Comprehensi ve Internal Medicine Work Phone: Comment on above: PATIENT NOT FASTINGP ERFORMED BY: ALEX [facility] Tiphct1882 [address] RoadDublin [place] [id number] Information: SRC:UC Glucose Ql (U) Negative Normal Comprehens shanta [facility] Medicine Work Phone: Comment on above: PATIENT NOT FASTINGP ERFORMED BY: CB [facility] Goszjq7797 [address] [facility] [id number] Information: SRC:UC Glucose Ql (U) Negative Normal Comprehens shanta [facility] Medicine; [facility] Work Phone: Hemoglobin Ql (U) 2+ Abnormal Compreh ensive Internal Medicine Work Phone: Comment on above: PATIENT NOT FASTINGP ERFORMED BY: ALEX Manleylin6370 [address] RoadColumbus Regional Healthcare Systemin [place] [id number] Information: SRC:UC Hemoglobin Test strip Ql (U) 2+ Abnormal [facility] Work Phone: Ketones Ql (U) Negative Normal Comprehens shanta [facility] Medicine Work Phone: Comment on above: PATIENT NOT FASTINGP ERFORMED BY: ALEX Manleylin6370 [address] RoadECU Health [facility] [id number] Information: SRC:UC Ketones Ql (U) Negative Normal Comprehens shanta [facility]; [facility] Work Phone: Leukocyte esterase Test strip Ql (U) 2+ Abnormal [facility] Work Phone: Comment on above: PATIENT NOT FASTINGP ERFORMED BY: ALEX Villegas6[address] [facility] [id number] Information: SRC:UC Microscopic observation LM Nom (Urine sed) See below: Normal [facility] Work Phone: Comment on above: Microscopic was jared cated and was performed. PATIENT NOT FASTINGP ERFORMED BY: ALEX Manleylin6370 [address] [facility] [id number] Information: SRC:UC Nitrite Ql (U) Negative Normal Comprehens shanta [facility] Work Phone: Comment on above: PATIENT NOT FASTINGP ERFORMED BY: ALEX Manleylin6370 [address] [facility] [id number] Information: SRC:UC Nitrite Ql (U) Negative Normal Comprehens shanta [facility]; [facility] Work Phone: Nitrite Test strip Ql (U) Negative Normal [facility] Work Phone: pH (U) 6.0 [pH] Normal 5.0-7.5 [facility] Work Phone: Comment on above: PATIENT NOT FASTINGP ERFORMED BY: ALEX Manleylin6370 [facility] [id number] Information: SRC: pH Test strip (U) 6.0 [pH] Normal 5.0-7.5 Compreh ensive Internal Medicine Work Phone: Protein Ql (U) Negative Normal Comprehens shanta [facility] Work Phone: Comment on above: PATIENT NOT FASTINGP ERFORMED BY: ALEX Manleylin6370 [facility] [id number] Information: SRC: Protein Ql (U) Negative Normal Comprehens shanta [facility]; [facility] Work Phone: Protein Test strip Ql (U) Negative Normal [facility] Work Phone: Specific gravity Relative Density (U) 1.019 1 Normal 1.005-1.030 Comprehensi ve Internal Medicine Work Phone: Comment on above: PATIENT NOT FASTINGP ERFORMED BY: ALEX Manleylin6370 [facility] [id number] Information: SRC: Urobilinogen (U) [Mass/Vol] 0.2 mg/dL Normal 0.2-1.0 [facility]; [facility] Work Phone: Urobilinogen Test strip mass conc (U) 0.2 mg/dL Normal 0.2-1.0 Comprehensiv e Internal Medicine Work Phone: Comment on above: PATIENT NOT FASTINGP ERFORMED BY: ALEX Manleylin6370 [facility] [id number] Information: SRC: URINE JASON CULTURE-ANGELINA COL C OUNT (40131)Ordered By: Automotive Engineering Teacher on 11-20-2016 Bacteria identified Cx Nom (U) MUG Normal [facility] Work Phone: Comment on above: Mixed urogenital paris ra1,000 Colonies/mL PATIENT NOT FASTINGP ERFORMED BY: [facility] Idqcec2173 [facility] [id number] Bacteria identified Cx Nom (U) Final report Normal [facility] Work Phone: Comment on above: PATIENT NOT FASTINGP ERFORMED BY: [place] [facility] Ugdvwz8005 [facility] [id number] C-REACT PROT HIGH SENS(hsCRP ) (81116)Ordered By: Automotive Engineering Teacher on 08-21-2016 CRP High sensitivity method mass conc 2.25 mg/L Normal 0.00-3.00 [facility] Work Phone: Comment on above: Relative Risk for Fu ture Cardiovascular Event Low <1.00 Average 1.00 - 3.00 High >3.00 PATIENT NOT FASTINGP ERFORMED BY: SecondbrainChrist HospitalEtmsyy9643 [facility] [id number] BY: Secondbrain[address] [id number] CCP ANTIBODY (47064)Ordered By: Automotive Engineering Teacher on 08-21-2016 Cyclic citrullinated peptide IgA+IgG IA Qn 6 {units} Normal 0-19 Comprehens shanta [facility] Medicine Work Phone: Comment on above: Negative <20 Weak po sitive 20 - 39 Moderate positive 40 - 59 Strong positive >59 PATIENT NOT FASTINGP ERFORMED BY: SecondbrainChrist HospitalQgklmz8880 [facility] [id number] BY: [employer] [id number] SED RATE ERYTHROCYTE (93041) Ordered By: Automotive Engineering Teacher on 08-21-2016 ESR Velocity (Bld) 4 mm/h Normal 0-40 Compre [facility] Internal [facility] Work Phone: Comment on above: PATIENT NOT FASTINGP ERFORMED BY: LabYOYO HoldingsDonald Ville [address] [facility] [id number] BY: Second[employer] [id number] Systemic Lupus Profile (8623 5)Ordered By: Automotive Engineering Teacher on 02-07-2017 Chromatin Ab Qn <0.2 Normal 0.0-0.9 [facility] Internal Medicine Work Phone: Comment on above: PATIENT NOT FASTINGP ERFORMED BY: ALEX [facility] Bozdry4381 [facility] [id number] BY: Second[employer] [id number] DNA double strand Ab Qn (S) 16 {IU/mL} Abnormal 0-9 [facility] Work Phone: Comment on above: Negative <5 Equivoca l 5 - 9 Positive >9 PATIENT NOT FASTINGP ERFORMED BY: ALEX [facility] Sidybl1379 [facility] [id number] BY: [employer] [id number] DNA double strand Ab Qn (S) 16 [IU]/mL Abnormal 0-9 [facility]; [facility] Work Phone: Rheumatoid factor Qn [IU]/mL Normal 0.0-13.9 Comp rehensive Internal Medicine Work Phone: Comment on above: PATIENT NOT FASTINGP ERFORMED BY: ALEX [facility] Lmtfvy7973 [facility] [id number] BY: [employer] [id number] Rheumatoid factor Qn [IU]/mL Normal 0.0-13.9 Comp rehensive Internal Medicine; [facility] Work Phone: Ribonucleoprotein extractable nuclear Ab Qn (S) <0.2 Normal 0.0-0.9 [facility] Work Phone: Comment on above: PATIENT NOT FASTINGP ERFORMED BY: ALEX [facility] Xfjuis2339 [facility] [id number] BY: Second[employer] [id number] Sjogrens syndrome-A extractable nuclear Ab Qn (S) <0.2 Normal 0.0-0.9 [facility] Work Phone: Comment on above: PATIENT NOT FASTINGP ERFORMED BY: ALEX LabCoDonald [place] 5[address] [facility] [id number] BY: [address] [id number] Sjogrens syndrome-B extractable nuclear Ab Qn (S) <0.2 Normal 0.0-0.9 [facility] Work Phone: Comment on above: PATIENT NOT FASTINGP ERFORMED BY: ALEX LabCoDonald [place] [address] [facility] [id number] BY: [address] [id number] Robertson extractable nuclear Ab Qn (S) <0.2 Normal 0.0-0.9 [facility] Work Phone: Comment on above: PATIENT NOT FASTINGP ERFORMED BY: ALEX LabCo Phyznt[address] [id number] BY: [address] [id number] CBC, Platelets & Auto Diff ( [id number])Ordered By: Automotive Engineering Teacher on 08-16-2016 Basophils #/vol (Bld) 0.0 {x10E3/uL} Normal 0.0-0.2 [facility] Work Phone: Comment on above: PATIENT WAS FASTINGP ERFORMED BY: ALEX LabCo Suuohs7920 [facility] [id number] Information: [id number], [id number]; OV 2/7 Basophils (Bld) [#/Vol] 0.0 10*3/uL Normal 0.0-0.2 [facility]; [facility] Work Phone: Basophils Auto #/vol (Bld) 0.0 {x10E3/uL} Normal 0.0-0.2 [facility] Work Phone: Basophils/100 WBC (Bld) 1 % Normal [facility] Work Phone: Comment on above: PATIENT WAS FASTINGP ERFORMED BY: [facility]6[address] [facility] [id number] Information: [id number], 104633; OV 2/7 Basophils/100 WBC Auto (Bld) 1 % Normal [facility] Work Phone: Eosinophils #/vol (Bld) 0.2 {x10E3/uL} Normal 0.0-0.4 [facility] Work Phone: Comment on above: PATIENT WAS FASTINGP ERFORMED BY: [place] [address] [facility] [id number] Information: [id number], [id number]; OV 2/7 Eosinophils (Bld) [#/Vol] 0.2 10*3/uL Normal 0.0-0.4 [facility]; [facility] Work Phone: Eosinophils Auto #/vol (Bld) 0.2 {x10E3/uL} Normal 0.0-0.4 [facility] Work Phone: Eosinophils/100 WBC (Bld) 6 % Normal [facility] Work Phone: Comment on above: PATIENT WAS FASTINGP ERFORMED BY: [place] [address] [facility] [id number] Information: [id number], 601497; OV 2/7 Eosinophils/100 WBC Auto (Bld) 6 % Normal [facility] Work Phone: Erythrocyte distribution width Auto Ratio (RBC) 13.8 % Normal 12.3-15.4 [facility] Work Phone: Erythrocyte distribution width Ratio (RBC) 13.8 % Normal 12.3-15.4 [facility] Work Phone: Comment on above: PATIENT WAS FASTINGP ERFORMED BY: [place] [address] [facility] [id number] Information: [id number], [id number]; OV 2/7 Hematocrit Auto Volume Fraction (Bld) 36.3 % Normal 34.0-46.6 [facility] Work Phone: Hematocrit Volume Fraction (Bld) 36.3 % Normal 34.0-46.6 [facility] Work Phone: Comment on above: PATIENT WAS FASTINGP ERFORMED BY: [place] [address] [facility] [id number] Information: [id number], [id number]; OV 2/7 Hemoglobin mass conc (Bld) 12.2 g/dL Normal 11.1-15.9 [facility] Work Phone: Comment on above: PATIENT WAS FASTINGP ERFORMED BY: [address] [id number] Information: [id number], 203930; OV 2/7 Immature granulocytes #/vol (Bld) 0.0 {x10E3/uL} Normal 0.0-0.1 [facility] Work Phone: Comment on above: PATIENT WAS FASTINGP ERFORMED BY: [address] [id number] Information: [id number], 121038; OV 2/7 Immature granulocytes (Bld) [#/Vol] 0.0 10*3/uL Normal 0.0-0.1 [facility]; [facility] Work Phone: Immature granulocytes/100 WBC (Bld) 0 % Normal [facility] Work Phone: Comment on above: PATIENT WAS FASTINGP ERFORMED BY: [place] [address] [facility] [id number] Information: [id number], [id number]; OV 2/7 Lymphocytes #/vol (Bld) 1.3 {x10E3/uL} Normal 0.7-3.1 [facility] Work Phone: Comment on above: PATIENT WAS FASTINGP ERFORMED BY: [place] [address] [facility] [id number] Information: [id number], [id number]; OV 2/7 Lymphocytes (Bld) [#/Vol] 1.3 10*3/uL Normal 0.7-3.1 [facility]; [facility] Work Phone: Lymphocytes Auto #/vol (Bld) 1.3 {x10E3/uL} Normal 0.7-3.1 [facility] Work Phone: Lymphocytes/100 WBC (Bld) 38 % Normal [facility] Work Phone: Comment on above: PATIENT WAS FASTINGP ERFORMED BY: ALEX [employer] Aqvckz7134 [facility] [id number] Information: [id number], 026665; OV 2/7 Lymphocytes/100 WBC Auto (Bld) 38 % Normal [facility] Work Phone: MCH Auto Entitic mass (RBC) 29.4 pg Normal 26.6-33.0 [facility] Work Phone: MCH Entitic mass (RBC) 29.4 pg Normal 26.6-33.0 [facility] Work Phone: Comment on above: PATIENT WAS FASTINGP ERFORMED BY: [employer] Ezjryr3355 [facility] [id number] Information: [id number], 677995; OV 2/7 MCHC Auto mass conc (RBC) 33.6 g/dL Normal 31.5-35.7 [facility] Work Phone: MCHC mass conc (RBC) 33.6 g/dL Normal 31.5-35.7 [facility] Work Phone: Comment on above: PATIENT WAS FASTINGP ERFORMED BY: SecondbrainCrownpoint Healthcare FacilityWxlcki6430 [facility] [id number] Information: [id number], 356574; OV 2/7 MCV Auto Entitic volume (RBC) 88 fL Normal 79-97 [facility] Work Phone: MCV Entitic volume (RBC) 88 fL Normal 79-97 [facility] Work Phone: Comment on above: PATIENT WAS FASTINGP ERFORMED BY: [employer] Hazvvx9467 [address] [facility]EC[facility] [id number] Information: [id number], [id number]; OV 2/7 Monocytes #/vol (Bld) 0.2 {x10E3/uL} Normal 0.1-0.9 [facility] Work Phone: Comment on above: PATIENT WAS FASTINGP ERFORMED BY: [facility] [facility] [id number] Information: [id number], 334734; OV 2/7 Monocytes (Bld) [#/Vol] 0.2 10*3/uL Normal 0.1-0.9 [facility]; [facility] Work Phone: Monocytes Auto #/vol (Bld) 0.2 {x10E3/uL} Normal 0.1-0.9 [facility] Work Phone: Monocytes/100 WBC (Bld) 6 % Normal [facility] Work Phone: Comment on above: PATIENT WAS FASTINGP ERFORMED BY: [facility] [facility] [id number] Information: [id number], 838646; OV 2/7 Monocytes/100 WBC Auto (Bld) 6 % Normal [facility] Work Phone: Neutrophils #/vol (Bld) 1.7 {x10E3/uL} Normal 1.4-7.0 [facility] Work Phone: Comment on above: PATIENT WAS FASTINGP ERFORMED BY: [facility] [facility] [id number] Information: [id number], 308362; OV 2/7 Neutrophils (Bld) [#/Vol] 1.7 10*3/uL Normal 1.4-7.0 [facility]; [facility] Work Phone: Neutrophils Auto #/vol (Bld) 1.7 {x10E3/uL} Normal 1.4-7.0 [facility] Work Phone: Neutrophils/100 WBC (Bld) 49 % Normal [facility] Work Phone: Comment on above: PATIENT WAS FASTINGP ERFORMED BY: [facility] [facility] [id number] Information: [id number], 446254; OV 2/7 Neutrophils/100 WBC Auto (Bld) 49 % Normal [facility] Work Phone: Platelets #/vol (Bld) 210 {x10E3/uL} Normal 150-379 [facility] Work Phone: Comment on above: PATIENT WAS FASTINGP ERFORMED BY: [place] [address] [facility] [id number] Information: [id number], 877641; OV 2/7 Platelets (Bld) [#/Vol] 210 10*3/uL Normal 150-379 [facility]; [facility] Work Phone: Platelets Auto #/vol (Bld) 210 {x10E3/uL} Normal 150-379 [facility] Work Phone: RBC #/vol (Bld) 4.15 {x10E6/uL} Normal 3.77-5.28 [facility] Work Phone: Comment on above: PATIENT WAS FASTINGP ERFORMED BY: [place] [address] [facility] [id number] Information: [id number], 796024; OV 2/7 RBC (Bld) [#/Vol] 4.15 10*6/uL Normal 3.77-5.28 [facility]; [facility] Work Phone: RBC Auto #/vol (Bld) 4.15 {x10E6/uL} Normal 3.77-5.28 [facility] Work Phone: WBC #/vol (Bld) 3.3 {x10E3/uL} Abnormal 3.4-10.8 Compr ensive [facility] Work Phone: Comment on above: PATIENT WAS FASTINGP ERFORMED BY: [facility] [facility] [id number] Information: [id number], 748437; OV 2/7 WBC (Bld) [#/Vol] 3.3 10*3/uL Abnormal 3.4-10.8 [facility]; [facility] Work Phone: WBC Auto #/vol (Bld) 3.3 {x10E3/uL} Abnormal 3.4-10.8 [facility] Work Phone: LIPID PANEL ([id number])Ordered B y: Automotive Engineering Teacher on 08-16-2016 Cholesterol in HDL mass conc 91 mg/dL Normal [facility] Work Phone: Comment on above: PATIENT WAS FASTINGP ERFORMED BY: ALEX Villegas6370 [facility] [id number] Cholesterol in LDL mass conc 120 mg/dL Abnormal 0-99 [facility] Work Phone: Comment on above: PATIENT WAS FASTINGP ERFORMED BY: ALEX ManleyCradlePoint Technologyox [facility]Life[facility] [id number] Cholesterol in LDL/Cholesterol in HDL mass ratio 1.3 {ratio_units} Normal 0.0-3.2 [facility] Work Phone: Comment on above: LDL/HDL Ratio Men Wo men 1/2 Avg.Risk 1.0 1.5 Avg.Risk 3.6 3.2 2X Avg.Risk 6.2 5.0 3X Avg.Risk 8.0 6.1 PATIENT WAS FASTINGP ERFORMED BY: ALEX Manleylin6370 [address] [facility]Life[facility] [id number] Cholesterol in VLDL mass conc 12 mg/dL Normal 5-40 [facility] Work Phone: Comment on above: PATIENT WAS FASTINGP ERFORMED BY: ALEX Manleylin6370 [facility]Life[facility] [id number] Cholesterol mass conc 223 mg/dL Abnormal 100-199 Com prehensive Internal Medicine Work Phone: Comment on above: PATIENT WAS FASTINGP ERFORMED BY: ALEX Manleylin6370 [facility]Life[facility] [place] [id number] Triglyceride mass conc 61 mg/dL Normal 0-149 Co m[facility]hselect [facility] Work Phone: Comment on above: PATIENT WAS FASTINGP ERFORMED BY: ALEX [facility] Ydaxxf2781 [address] Roadblin [place] [id number] METABOLIC PANEL, COMPREHENSI VE ([id number])Ordered By: Automotive Engineering Teacher on 08-16-2016 Albumin mass conc 4.6 g/dL Normal 3.5-4.8 Compreh [facility] Work Phone: Comment on above: PATIENT WAS FASTINGP ERFORMED BY: ALEX [facility] Mxzvij0902 Av[address] Roadblin [place] [id number] Albumin/Globulin mass ratio 1.8 {ratio} Normal 1.1-2.5 [facility] Internal Medicine Work Phone: Comment on above: PATIENT WAS FASTINGP ERFORMED BY: ALEX LabCodaniella ManleyVwiscj2710 [address] [facility] [id number] ALP [Catalytic activity/Vol] 100 U/L Normal 39-117 [facility]; [facility] Internal [facility] Work Phone: ALP enzyme act/vol 100 [iU]/L Normal 39-117 [facility] Work Phone: Comment on above: PATIENT WAS FASTINGP ERFORMED BY: ALEX LabCodaniella ManleyIoyrbt9850 [address] [facility] [place] [id number] ALT [Catalytic activity/Vol] 15 U/L Normal 0-32 [facility]; [facility] Internal Medicine Work Phone: ALT enzyme act/vol 15 [iU]/L Normal 0-32 [facility] Work Phone: Comment on above: PATIENT WAS FASTINGP ERFORMED BY: ALEX [facility] Qhkccr5193 [address] [facility] [place] [id number] AST [Catalytic activity/Vol] 19 U/L Normal 0-40 [facility]; [facility] Internal Medicine Work Phone: AST enzyme act/vol 19 [iU]/L Normal 0-40 [facility] Work Phone: Comment on above: PATIENT WAS FASTINGP ERFORMED BY: ALEX [facility] Zqigkv4319 [address] [facility] [place] [id number] Bilirubin mass conc 0.4 mg/dL Normal 0.0-1.2 Compr ehensive Internal Medicine Work Phone: Comment on above: PATIENT WAS FASTINGP ERFORMED BY: ALEX LabCodaniella ManleyBlntuh0122 [address] [facility] [place] [id number] Calcium mass conc 9.5 mg/dL Normal 8.7-10.3 Compreh ensive Internal Medicine Work Phone: Comment on above: PATIENT WAS FASTINGP ERFORMED BY: ALEX [facility] Oltpql4329 [address] [facility] [id number] Chloride molar conc 106 mmol/L Normal 96-106 Compr ensive [facility] Medicine Work Phone: Comment on above: PATIENT WAS FASTINGP ERFORMED BY: ALEX LabCodaniella ManleyXlfrzf6474 [address] [facility] [id number] CO2 molar conc 25 mmol/L Normal 18-29 Comprehens shanta Internal Medicine Work Phone: Comment on above: PATIENT WAS FASTINGP ERFORMED BY: ALEX LabCodaniella Wkwcoi1720 [address] [facility] [id number] Creatinine mass conc 0.91 mg/dL Normal 0.57-1.00 Comp [facility] Work Phone: Comment on above: PATIENT WAS FASTINGP ERFORMED BY: ALEX [facility] Mdjmgg4842 [address] [facility] [id number] GFR/1.73 sq M predicted among blacks CKD-EPI vol rate/area (S/P/Bld) 74 mL/min/1.73 Normal [facility] Work Phone: Comment on above: PATIENT WAS FASTINGP ERFORMED BY: [facility] Rzbzxx4724 [address] [facility] [place] [id number] GFR/1.73 sq M predicted among non-blacks CKD-EPI vol rate/area (S/P/Bld) 64 mL/min/1.73 Normal Comprehensiv e Internal Medicine Work Phone: Comment on above: PATIENT WAS FASTINGP ERFORMED BY: ALEX [facility] Brhqbp3560 [facility] [id number] Globulin Calculated mass conc (S) 2.6 g/dL Normal 1.5-4.5 [facility] Work Phone: Globulin mass conc (S) 2.6 g/dL Normal 1.5-4.5 Co mprehensive [facility] Work Phone: Comment on above: PATIENT WAS FASTINGP ERFORMED BY: ALEX Villegas6370 [facility] [id number] Glucose mass conc 93 mg/dL Normal 65-99 Compreh ensive Internal Medicine Work Phone: Comment on above: PATIENT WAS FASTINGP ERFORMED BY: ALEX Villegas6370 [facility] [id number] Potassium molar conc 4.5 mmol/L Normal 3.5-5.2 Comp rehensive Internal Medicine Work Phone: Comment on above: PATIENT WAS FASTINGP ERFORMED BY: ALEX Villegas6370 [facility] [id number] Protein mass conc 7.2 g/dL Normal 6.0-8.5 Compreh ensive Internal Medicine Work Phone: Comment on above: PATIENT WAS FASTINGP ERFORMED BY: ALEX Villegas6370 [facility] [id number] Sodium molar conc 143 mmol/L Normal 134-144 Compreh ensive Internal Medicine Work Phone: Comment on above: PATIENT WAS FASTINGP ERFORMED BY: ALEX Villegas6370 [facility] [id number] Urea nitrogen mass conc 16 mg/dL Normal 8-27 [facility] Work Phone: Comment on above: PATIENT WAS FASTINGP ERFORMED BY: ALEX Manleylin6370 [facility] [id number] Urea nitrogen/Creatinine mass ratio 18 mg/mg Normal 11-26 [facility] Work Phone: Comment on above: PATIENT WAS FASTINGP ERFORMED BY: ALEX Manleylin6370 [facility] [id number] TSH (THYROID STIMULATING HOR MAYRA) ([id number])Ordered By: Automotive Engineering Teacher on 08-16-2016 Thyrotropin Qn 1.860 {uIU/mL} Normal 0.450-4.500 [facility] Internal Medicine Work Phone: Comment on above: PATIENT WAS FASTINGP ERFORMED BY: ALEX LabWal[facility]. [facility]6[address] [facility] [id number] CBC with auto diff ([id number])Or dered By: Automotive Engineering Teacher on 09-07-2015 Basophils #/vol (Bld) 0.0 {x10E3/uL} Normal 0.0-0.2 [facility] Work Phone: Comment on above: in six months (appro xily); PATIENT WAS FASTINGPERFORMED BY: LAEX [facility]6370 [facility] [id number] Information: [id number] Basophils (Bld) [#/Vol] 0.0 10*3/uL Normal 0.0-0.2 [facility]; [facility] Work Phone: Basophils Auto #/vol (Bld) 0.0 {x10E3/uL} Normal 0.0-0.2 [facility] Work Phone: Basophils/100 WBC (Bld) 1 % Normal [facility] Work Phone: Comment on above: in six months (appro xi); PATIENT WAS FASTINGPERFORMED BY: [facility]6[address] [facility] [id number] Information: [id number] Basophils/100 WBC Auto (Bld) 1 % Normal [facility] Work Phone: Eosinophils #/vol (Bld) 0.4 {x10E3/uL} Normal 0.0-0.4 [facility] Work Phone: Comment on above: in six months (appro xi); PATIENT WAS FASTINGPERFORMED BY: [facility]6[address] [facility] [id number] Information: [id number] Eosinophils (Bld) [#/Vol] 0.4 10*3/uL Normal 0.0-0.4 [facility]; [facility] Work Phone: Eosinophils Auto #/vol (Bld) 0.4 {x10E3/uL} Normal 0.0-0.4 [facility] Work Phone: Eosinophils/100 WBC (Bld) 11 % Normal [facility] Work Phone: Comment on above: in six months (appro ); PATIENT WAS FASTINGPERFORMED BY: ALEX Secondbraindaniella VillegasWpgktr6696 [facility]ilaAG[facility] [id number] Information: [id number] Eosinophils/100 WBC Auto (Bld) 11 % Normal [facility] Work Phone: Erythrocyte distribution width Auto Ratio (RBC) 13.6 % Normal 12.3-15.4 [facility] Work Phone: Erythrocyte distribution width Ratio (RBC) 13.6 % Normal 12.3-15.4 [facility] Work Phone: Comment on above: in six months (); PATIENT WAS FASTINGPERFORMED BY: ALEX Secondbraindaniella ManleyTuxidu9645 [facility] [id number] Information: [id number] Hematocrit Auto Volume Fraction (Bld) 34.5 % Normal 34.0-46.6 [facility] Work Phone: Hematocrit Volume Fraction (Bld) 34.5 % Normal 34.0-46.6 [facility] Work Phone: Comment on above: in six months (appro ); PATIENT WAS FASTINGPERFORMED BY: ALEX [employer] Qkyokb3210 [address] Ad.[facility]ECU [facility] [id number] Information: [id number] Hemoglobin mass conc (Bld) 11.6 g/dL Normal 11.1-15.9 [facility] Work Phone: Comment on above: in six months (appro ly); PATIENT WAS FASTINGPERFORMED BY: CB [facility]6370 [facility] [id number] Information: [id number] Immature granulocytes #/vol (Bld) 0.0 {x10E3/uL} Normal 0.0-0.1 [facility] Work Phone: Comment on above: in six months (appro ximately); PATIENT WAS FASTINGPERFORMED BY: ALEX [facility] Elyglv0861 [facility] [id number] Information: [id number] Immature granulocytes (Bld) [#/Vol] 0.0 10*3/uL Normal 0.0-0.1 [facility]; [facility] Work Phone: Immature granulocytes/100 WBC (Bld) 0 % Normal [facility] Work Phone: Comment on above: in six months (appro ximately); PATIENT WAS FASTINGPERFORMED BY: [facility] Bwucyr3552 [facility] [id number] Information: [id number] Lymphocytes #/vol (Bld) 1.4 {x10E3/uL} Normal 0.7-3.1 [facility] Work Phone: Comment on above: in six months (appro ximately); PATIENT WAS FASTINGPERFORMED BY: ALEX [facility] Mspghf8280 [facility] [id number] Information: [id number] Lymphocytes (Bld) [#/Vol] 1.4 10*3/uL Normal 0.7-3.1 [facility]; [facility] Work Phone: Lymphocytes Auto #/vol (Bld) 1.4 {x10E3/uL} Normal 0.7-3.1 [facility] Work Phone: Lymphocytes/100 WBC (Bld) 39 % Normal [facility] Work Phone: Comment on above: in six months (appro ximately); PATIENT WAS FASTINGPERFORMED BY: [place] [address] [facility] [id number] Information: [id number] Lymphocytes/100 WBC Auto (Bld) 39 % Normal [facility] Work Phone: MCH Auto Entitic mass (RBC) 29.7 pg Normal 26.6-33.0 [facility] Work Phone: MCH Entitic mass (RBC) 29.7 pg Normal 26.6-33.0 [facility] Internal Medicine Work Phone: Comment on above: in six months (appro xi); PATIENT WAS FASTINGPERFORMED BY: ALEX LabYOYO Holdings Vxvrca7158 [facility] [id number] Information: [id number] MCHC Auto mass conc (RBC) 33.6 g/dL Normal 31.5-35.7 [facility] Internal Medicine Work Phone: MCHC mass conc (RBC) 33.6 g/dL Normal 31.5-35.7 [facility] Work Phone: Comment on above: in six months (appro ); PATIENT WAS FASTINGPERFORMED BY: LabYOYO Holdings Zstwrj1563 [facility] [id number] Information: [id number] MCV Auto Entitic volume (RBC) 88 fL Normal 79-97 [facility] Work Phone: MCV Entitic volume (RBC) 88 fL Normal 79-97 [facility] Work Phone: Comment on above: in six months (appro xily); PATIENT WAS FASTINGPERFORMED BY: [facility] Mqnlxy4345 [facility] [id number] Information: [id number] Monocytes #/vol (Bld) 0.2 {x10E3/uL} Normal 0.1-0.9 [facility] Work Phone: Comment on above: in six months (appro xily); PATIENT WAS FASTINGPERFORMED BY: [facility] Kdiqjm0083 [facility] [id number] Information: [id number] Monocytes (Bld) [#/Vol] 0.2 10*3/uL Normal 0.1-0.9 [facility]; [facility] Work Phone: Monocytes Auto #/vol (Bld) 0.2 {x10E3/uL} Normal 0.1-0.9 [facility] Work Phone: Monocytes/100 WBC (Bld) 5 % Normal [facility] Work Phone: Comment on above: in six months (appro xily); PATIENT WAS FASTINGPERFORMED BY: Climateminder70 [facility].netECU [facility] [id number] Information: [id number] Monocytes/100 WBC Auto (Bld) 5 % Normal [facility] Work Phone: Neutrophils #/vol (Bld) 1.6 {x10E3/uL} Normal 1.4-7.0 [facility] Work Phone: Comment on above: in six months (appro xi); PATIENT WAS FASTINGPERFORMED BY: Climateminder70 [address] Ad.IQECU [facility] [id number] Information: [id number] Neutrophils (Bld) [#/Vol] 1.6 10*3/uL Normal 1.4-7.0 [facility]; [facility] Work Phone: Neutrophils Auto #/vol (Bld) 1.6 {x10E3/uL} Normal 1.4-7.0 [facility] Work Phone: Neutrophils/100 WBC (Bld) 44 % Normal [facility] Work Phone: Comment on above: in six months (appro xi); PATIENT WAS FASTINGPERFORMED BY: Climateminder70 [facility] [id number] Information: [id number] Neutrophils/100 WBC Auto (Bld) 44 % Normal [facility] Work Phone: Platelets #/vol (Bld) 206 {x10E3/uL} Normal 150-379 [facility] Work Phone: Comment on above: in six months (appro ximately); PATIENT WAS FASTINGPERFORMED BY: ALEX [facility] Gfgtya3391 [facility] [id number] Information: [id number] Platelets (Bld) [#/Vol] 206 10*3/uL Normal 150-379 [facility]; [facility] Work Phone: Platelets Auto #/vol (Bld) 206 {x10E3/uL} Normal 150-379 [facility] Work Phone: RBC #/vol (Bld) 3.91 {x10E6/uL} Normal 3.77-5.28 [facility] Work Phone: Comment on above: in six months (appro xily); PATIENT WAS FASTINGPERFORMED BY: ALEX [facility] [facility] [id number] Information: [id number] RBC (Bld) [#/Vol] 3.91 10*6/uL Normal 3.77-5.28 Compr ensive Internal Medicine; [facility] Work Phone: RBC Auto #/vol (Bld) 3.91 {x10E6/uL} Normal 3.77-5.28 [facility] Work Phone: WBC #/vol (Bld) 3.5 {x10E3/uL} Normal 3.4-10.8 [facility] Internal Medicine Work Phone: Comment on above: in six months (appro xi); PATIENT WAS FASTINGPERFORMED BY: ALEX [facility] [facility] [id number] Information: [id number] WBC (Bld) [#/Vol] 3.5 10*3/uL Normal 3.4-10.8 Compre [facility]; [facility] Work Phone: WBC Auto #/vol (Bld) 3.5 {x10E3/uL} Normal 3.4-10.8 [facility] Work Phone: LIPID PANEL ([id number])Ordered B y: Automotive Engineering Teacher on 09-07-2015 Cholesterol in HDL mass conc 81 mg/dL Normal [facility] Work Phone: Comment on above: According to ATP-III Guidelines, HDL-C >59 mg/dL is considered anegative risk factor for CHD. PATIENT WAS FASTINGP ERFORMED BY: CB [facility] Fyayct[address] P[employer] Internationalblin [place] [id number]; apt. 3-1-16 Cholesterol in LDL mass conc 105 mg/dL Abnormal 0-99 [facility] Work Phone: Comment on above: PATIENT WAS FASTINGP ERFORMED BY: CB [facility] Xpximv[address]38 [address] Ad.[facility]ECU [facility] [id number]; apt. 3-1-16 Cholesterol in LDL/Cholesterol in HDL mass ratio 1.3 {ratio_units} Normal 0.0-3.2 [facility] Work Phone: Comment on above: LDL/HDL Ratio Men Wo men 1/2 Avg.Risk 1.0 1.5 Avg.Risk 3.6 3.2 2X Avg.Risk 6.2 5.0 3X Avg.Risk 8.0 6.1 PATIENT WAS FASTINGP ERFORMED BY: CB [facility] Dckxhn6559 [address] [facility] [id number]; apt. 3-1-16 Cholesterol in VLDL mass conc 10 mg/dL Normal 5-40 [facility] Work Phone: Comment on above: PATIENT WAS FASTINGP ERFORMED BY: CB [facility] Hyzqii1427 [address] RoadColumbus Regional Healthcare Systemin [place] [id number]; apt. 3-1-16 Cholesterol mass conc 196 mg/dL Normal 100-199 Com prehensive Internal Medicine Work Phone: Comment on above: PATIENT WAS FASTINGP ERFORMED BY: CB [facility] Sedioh2546 Avila RoadDuin [place] [id number]; apt. 3-1-16 Triglyceride mass conc 52 mg/dL Normal 0-149 Co [facility] careehensive Internal Medicine Work Phone: Comment on above: PATIENT WAS FASTINGP ERFORMED BY: ALEX [facility] Ujyzwu4945 Avila RoadDublin [place] [id number]; apt. 3-1-16 METABOLIC PANEL, COMPREHENSI VE ([id number])Ordered By: Automotive Engineering Teacher on 09-07-2015 Albumin mass conc 4.1 g/dL Normal 3.5-4.8 Compreh [facility] Internal Medicine Work Phone: Comment on above: PATIENT WAS FASTINGP ERFORMED BY: ALEX [facility] Fuewhq9325 Avila RoadDublin [place] [id number] Albumin/Globulin mass ratio 1.6 {ratio} Normal 1.1-2.5 [facility] Work Phone: Comment on above: PATIENT WAS FASTINGP ERFORMED BY: ALEX [facility] Ypnfgz3890 Avila RoadDublin [place] [id number] ALP [Catalytic activity/Vol] 89 U/L Normal 39-117 [facility]; [facility] Work Phone: ALP enzyme act/vol 89 [iU]/L Normal 39-117 [facility] Internal Medicine Work Phone: Comment on above: PATIENT WAS FASTINGP ERFORMED BY: ALEX [facility] Qmtmul5925 Avila RoadDublin [place] [id number] ALT [Catalytic activity/Vol] 12 U/L Normal 0-32 [facility]; [facility] Work Phone: ALT enzyme act/vol 12 [iU]/L Normal 0-32 [facility] Internal Medicine Work Phone: Comment on above: PATIENT WAS FASTINGP ERFORMED BY: ALEX [facility] Rsxrup0333 Avila RoadDublin [place] [id number] AST [Catalytic activity/Vol] 17 U/L Normal 0-40 [facility]; [facility] Work Phone: AST enzyme act/vol 17 [iU]/L Normal 0-40 [facility] Internal Medicine Work Phone: Comment on above: PATIENT WAS FASTINGP ERFORMED BY: ALEX [facility] Uauzcs6749 Avila RoadDublin [place] [id number] Bilirubin mass conc 0.4 mg/dL Normal 0.0-1.2 Compr ehensive Internal Medicine Work Phone: Comment on above: PATIENT WAS FASTINGP ERFORMED BY: ALEX LabTravis ManleyNvaoyc[address] Chestnut [place] Centerblin [place] [id number] Calcium mass conc 9.3 mg/dL Normal 8.7-10.3 Compreh ensive Internal Medicine Work Phone: Comment on above: PATIENT WAS FASTINGP ERFORMED BY: ALEX [facility] Wvmeeh[address] [facility] [id number] Chloride molar conc 104 mmol/L Normal 97-108 Compr ensive Internal Medicine Work Phone: Comment on above: PATIENT WAS FASTINGP ERFORMED BY: ALEX [facility] Ekuewg[address] [facility] [id number] CO2 molar conc 23 mmol/L Normal 18-29 Comprehens shanta Internal Medicine Work Phone: Comment on above: PATIENT WAS FASTINGP ERFORMED BY: ALEX [facility] Ygyjie[address] [facility] [id number] Creatinine mass conc 0.86 mg/dL Normal 0.57-1.00 Comp rehensive Internal Medicine Work Phone: Comment on above: PATIENT WAS FASTINGP ERFORMED BY: ALEX [facility] Qdigto4[address] [facility] [id number] GFR/1.73 sq M predicted among blacks CKD-EPI vol rate/area (S/P/Bld) 79 mL/min/1.73 Normal [facility] Work Phone: Comment on above: PATIENT WAS FASTINGP ERFORMED BY: [facility] Kdhxfm6659 [address] RoadColumbus Regional Healthcare Systemin [place] [id number] GFR/1.73 sq M predicted among non-blacks CKD-EPI vol rate/area (S/P/Bld) 69 mL/min/1.73 Normal Comprehensiv e Internal Medicine Work Phone: Comment on above: PATIENT WAS FASTINGP ERFORMED BY: [facility] Rgmxak[address] [facility] [id number] Globulin Calculated mass conc (S) 2.6 g/dL Normal 1.5-4.5 [facility] Work Phone: Globulin mass conc (S) 2.6 g/dL Normal 1.5-4.5 Co mprehensive Internal Medicine Work Phone: Comment on above: PATIENT WAS FASTINGP ERFORMED BY: ALEX LabTravis Villegas[address] [facility] [id number] Glucose mass conc 87 mg/dL Normal 65-99 Compreh ensive Internal Medicine Work Phone: Comment on above: PATIENT WAS FASTINGP ERFORMED BY: ALEX LabTravis Villegas6[address] [facility] [id number] Potassium molar conc 4.3 mmol/L Normal 3.5-5.2 Comp [facility] Internal [facility] Work Phone: Comment on above: PATIENT WAS FASTINGP ERFORMED BY: ALEX Villegas6[address] [facility] [id number] Protein mass conc 6.7 g/dL Normal 6.0-8.5 Compreh ensive Internal Medicine Work Phone: Comment on above: PATIENT WAS FASTINGP ERFORMED BY: ALEX Villegas6[address] [facility] [id number] Sodium molar conc 141 mmol/L Normal 134-144 Compreh ensive Internal Medicine Work Phone: Comment on above: PATIENT WAS FASTINGP ERFORMED BY: ALEX LabTravis ManleyVdlgle6329 [facility] [id number] Urea nitrogen mass conc 17 mg/dL Normal 8-27 [facility] Work Phone: Comment on above: PATIENT WAS FASTINGP ERFORMED BY: ALEX LabCodaniella ManleyNpvlaj[address] Ad.IQECU [facility] [id number] Urea nitrogen/Creatinine mass ratio 20 mg/mg Normal 11-26 [facility] Work Phone: Comment on above: PATIENT WAS FASTINGP ERFORMED BY: ALEX LabCodaniella ManleyRmypay7267 [facility] [id number] CBC with auto diff ([id number])Or dered By: Automotive Engineering Teacher on 03-14-2015 Basophils #/vol (Bld) 0.0 {x10E3/uL} Normal 0.0-0.2 [facility] Work Phone: Comment on above: recheck in 8 weeks; PATIENT NOT FASTINGPERFORMED BY: [place] ChamberChrist[place] [address] [facility] [id number] Information: [id number] Basophils (Bld) [#/Vol] 0.0 10*3/uL Normal 0.0-0.2 [facility]; [facility] Work Phone: Basophils Auto #/vol (Bld) 0.0 {x10E3/uL} Normal 0.0-0.2 [facility] Work Phone: Basophils/100 WBC (Bld) 1 % Normal [facility] Work Phone: Comment on above: recheck in 8 weeks; PATIENT NOT FASTINGPERFORMED BY: SecondbrainChrist HospitalJqgqsf5208 [facility] [id number] Information: [id number] Basophils/100 WBC Auto (Bld) 1 % Normal [facility] Work Phone: Eosinophils #/vol (Bld) 0.2 {x10E3/uL} Normal 0.0-0.4 [facility] Work Phone: Comment on above: recheck in 8 weeks; PATIENT NOT FASTINGPERFORMED BY: [place] ChamberWalter P. Re[facility]6[address] [facility] [id number] Information: [id number] Eosinophils (Bld) [#/Vol] 0.2 10*3/uL Normal 0.0-0.4 [facility]; [facility] Work Phone: Eosinophils Auto #/vol (Bld) 0.2 {x10E3/uL} Normal 0.0-0.4 [facility] Work Phone: Eosinophils/100 WBC (Bld) 5 % Normal [facility] Work Phone: Comment on above: recheck in 8 weeks; PATIENT NOT FASTINGPERFORMED BY: [place] [address] [facility] [id number] Information: [id number] Eosinophils/100 WBC Auto (Bld) 5 % Normal [facility] Work Phone: Erythrocyte distribution width Auto Ratio (RBC) 13.7 % Normal 12.3-15.4 [facility] Work Phone: Erythrocyte distribution width Ratio (RBC) 13.7 % Normal 12.3-15.4 [facility] Work Phone: Comment on above: recheck in 8 weeks; PATIENT NOT FASTINGPERFORMED BY: [address] [id number] Information: [id number] Hematocrit Auto Volume Fraction (Bld) 34.6 % Normal 34.0-46.6 [facility] Work Phone: Hematocrit Volume Fraction (Bld) 34.6 % Normal 34.0-46.6 [facility] Work Phone: Comment on above: recheck in 8 weeks; PATIENT NOT FASTINGPERFORMED BY: [address] [id number] Information: [id number] Hemoglobin mass conc (Bld) 11.4 g/dL Normal 11.1-15.9 [facility] Work Phone: Comment on above: recheck in 8 weeks; PATIENT NOT FASTINGPERFORMED BY: [address] [id number] Information: [id number] Immature granulocytes #/vol (Bld) 0.0 {x10E3/uL} Normal 0.0-0.1 [facility] Work Phone: Comment on above: recheck in 8 weeks; PATIENT NOT FASTINGPERFORMED BY: [address] [id number] Information: [id number] Immature granulocytes (Bld) [#/Vol] 0.0 10*3/uL Normal 0.0-0.1 [facility]; [facility] Work Phone: Immature granulocytes/100 WBC (Bld) 0 % Normal [facility] Work Phone: Comment on above: recheck in 8 weeks; PATIENT NOT FASTINGPERFORMED BY: [place] ChamberChrist[place] [address] [facility] [id number] Information: [id number] Lymphocytes #/vol (Bld) 1.9 {x10E3/uL} Normal 0.7-3.1 [facility] Work Phone: Comment on above: recheck in 8 weeks; PATIENT NOT FASTINGPERFORMED BY: ALEX Secondbrain[address] [id number] Information: [id number] Lymphocytes (Bld) [#/Vol] 1.9 10*3/uL Normal 0.7-3.1 [facility]; [facility] Work Phone: Lymphocytes Auto #/vol (Bld) 1.9 {x10E3/uL} Normal 0.7-3.1 [facility] Work Phone: Lymphocytes/100 WBC (Bld) 43 % Normal [facility] Work Phone: Comment on above: recheck in 8 weeks; PATIENT NOT FASTINGPERFORMED BY: [place] ChamberChrist[place] [address] [facility] [id number] Information: [id number] Lymphocytes/100 WBC Auto (Bld) 43 % Normal [facility] Work Phone: MCH Auto Entitic mass (RBC) 28.9 pg Normal 26.6-33.0 [facility] Work Phone: MCH Entitic mass (RBC) 28.9 pg Normal 26.6-33.0 [facility] Internal Medicine Work Phone: Comment on above: recheck in 8 weeks; PATIENT NOT FASTINGPERFORMED BY: [place] Chamber[address] [id number] Information: [id number] MCHC Auto mass conc (RBC) 32.9 g/dL Normal 31.5-35.7 [facility] Work Phone: MCHC mass conc (RBC) 32.9 g/dL Normal 31.5-35.7 Comp [facility] Internal [facility] Work Phone: Comment on above: recheck in 8 weeks; PATIENT NOT FASTINGPERFORMED BY: ALEX [place] [address] [facility] [id number] Information: [id number] MCV Auto Entitic volume (RBC) 88 fL Normal 79-97 [facility] Work Phone: MCV Entitic volume (RBC) 88 fL Normal 79-97 [facility] Work Phone: Comment on above: recheck in 8 weeks; PATIENT NOT FASTINGPERFORMED BY: ALEX Villegas6[address] [facility] [id number] Information: [id number] Monocytes #/vol (Bld) 0.2 {x10E3/uL} Normal 0.1-0.9 [facility] Work Phone: Comment on above: recheck in 8 weeks; PATIENT NOT FASTINGPERFORMED BY: ALEX Villegas6[address] [facility] [id number] Information: [id number] Monocytes (Bld) [#/Vol] 0.2 10*3/uL Normal 0.1-0.9 [facility]; [facility] Work Phone: Monocytes Auto #/vol (Bld) 0.2 {x10E3/uL} Normal 0.1-0.9 [facility] Work Phone: Monocytes/100 WBC (Bld) 5 % Normal [facility] Work Phone: Comment on above: recheck in 8 weeks; PATIENT NOT FASTINGPERFORMED BY: ALEX [facility] [facility] [id number] Information: [id number] Monocytes/100 WBC Auto (Bld) 5 % Normal [facility] Work Phone: Neutrophils #/vol (Bld) 2.0 {x10E3/uL} Normal 1.4-7.0 [facility] Work Phone: Comment on above: recheck in 8 weeks; PATIENT NOT FASTINGPERFORMED BY: SecondbrainDonald [place] [address] [facility] [id number] Information: [id number] Neutrophils (Bld) [#/Vol] 2.0 10*3/uL Normal 1.4-7.0 [facility]; [facility] Work Phone: Neutrophils Auto #/vol (Bld) 2.0 {x10E3/uL} Normal 1.4-7.0 [facility] Work Phone: Neutrophils/100 WBC (Bld) 46 % Normal [facility] Work Phone: Comment on above: recheck in 8 weeks; PATIENT NOT FASTINGPERFORMED BY: SecondbrainChrist HospitalBhyzpj3686 [facility] [id number] Information: [id number] Neutrophils/100 WBC Auto (Bld) 46 % Normal [facility] Work Phone: Platelets #/vol (Bld) 224 {x10E3/uL} Normal 150-379 [facility] Work Phone: Comment on above: recheck in 8 weeks; PATIENT NOT FASTINGPERFORMED BY: SecondbrainChrist HospitalQfcfwb0871 [facility] [id number] Information: [id number] Platelets (Bld) [#/Vol] 224 10*3/uL Normal 150-379 [facility]; [facility] Work Phone: Platelets Auto #/vol (Bld) 224 {x10E3/uL} Normal 150-379 [facility] Work Phone: RBC #/vol (Bld) 3.95 {x10E6/uL} Normal 3.77-5.28 Comp rehensive Internal Medicine Work Phone: Comment on above: recheck in 8 weeks; PATIENT NOT FASTINGPERFORMED BY: Secondbrain Rvlqyu8730 [facility] [id number] Information: [id number] RBC (Bld) [#/Vol] 3.95 10*6/uL Normal 3.77-5.28 [facility] Internal Medicine; [facility] Work Phone: RBC Auto #/vol (Bld) 3.95 {x10E6/uL} Normal 3.77-5.28 [facility] Work Phone: WBC #/vol (Bld) 4.4 {x10E3/uL} Normal 3.4-10.8 [facility] Internal Medicine Work Phone: Comment on above: recheck in 8 weeks; PATIENT NOT FASTINGPERFORMED BY: ALEX SecondbrainCrownpoint Healthcare FacilityBnopdp8181 [facility] [id number] Information: [id number] WBC (Bld) [#/Vol] 4.4 10*3/uL Normal 3.4-10.8 [facility] Internal Medicine; [facility] Work Phone: WBC Auto #/vol (Bld) 4.4 {x10E3/uL} Normal 3.4-10.8 [facility] Internal Medicine Work Phone: Urinalysis, Office ([id number])Or dered By: Bailee Mckeon on 01-17-2015 Bilirubin Ql (U) Negative Normal Comprehe nsive Internal Medicine Work Phone: Bilirubin Ql (U) Negative Normal Comprehe nsive Internal Medicine; [facility] Work Phone: Glucose Test strip (U) [Mass/Vol] Negative Normal [facility]; [facility] Work Phone: Glucose Test strip mass conc (U) Negative Normal [facility] Work Phone: Hemoglobin Ql (U) Non Hemolyzed Moderate Normal [facility] Work Phone: Hemoglobin Test strip Ql (U) Non Hemolyzed Moderate Normal [facility] Work Phone: Ketones Ql (U) Negative Normal Comprehens shanta Internal Medicine Work Phone: Ketones Ql (U) Negative Normal Comprehens shanta Internal [facility]; [facility] Work Phone: Leukocyte esterase Test strip Ql (U) Small Normal [facility] Work Phone: Nitrite Ql (U) Negative Normal Comprehens shanta Internal Medicine Work Phone: Nitrite Ql (U) Negative Normal Comprehens shanta Internal Medicine; [facility] Work Phone: Nitrite Test strip Ql (U) Negative Normal [facility] Work Phone: pH (U) 6 [pH] Abnormal [facility] Work Phone: Comment on above: 5.5 pH Test strip (U) 6 [pH] Abnormal Compreh ensive Internal Medicine Work Phone: Comment on above: 5.5 Protein Ql (U) Negative Normal Comprehens shanta Internal Medicine Work Phone: Protein Ql (U) Negative Normal Comprehens shanta Internal [facility]; [facility] Work Phone: Protein Test strip Ql (U) Negative Normal [facility] Work Phone: Specific gravity Relative Density (U) 1.005 1 Normal Comprehensi ve Internal Medicine Work Phone: Urobilinogen mass/time (24H U) Normal Normal [facility] Work Phone: CBC With Differential/Platel etOrdered By: Automotive Engineering Teacher on 01-10-2015 Basophils #/vol (Bld) 0.0 {x10E3/uL} Normal 0.0-0.2 [facility] Work Phone: Comment on above: PATIENT WAS FASTINGP ERFORMED BY: LabCoChrist HospitalVtwpmc1664 [facility] [id number] Information: [id number] Basophils Auto #/vol (Bld) 0.0 {x10E3/uL} Normal 0.0-0.2 [facility] Work Phone: Basophils/100 WBC (Bld) 1 % Normal [facility] Work Phone: Comment on above: PATIENT WAS FASTINGP ERFORMED BY: ALEX [place] [address] [facility] [id number] Information: [id number] Basophils/100 WBC Auto (Bld) 1 % Normal [facility] Work Phone: Eosinophils #/vol (Bld) 0.2 {x10E3/uL} Normal 0.0-0.4 [facility] Work Phone: Comment on above: PATIENT WAS FASTINGP ERFORMED BY: ALEX [address] [id number] Information: [id number] Eosinophils Auto #/vol (Bld) 0.2 {x10E3/uL} Normal 0.0-0.4 [facility] Work Phone: Eosinophils/100 WBC (Bld) 5 % Normal [facility] Work Phone: Comment on above: PATIENT WAS FASTINGP ERFORMED BY: ALEX [address] [id number] Information: [id number] Eosinophils/100 WBC Auto (Bld) 5 % Normal [facility] Work Phone: Erythrocyte distribution width Auto Ratio (RBC) 13.3 % Normal 12.3-15.4 [facility] Work Phone: Erythrocyte distribution width Ratio (RBC) 13.3 % Normal 12.3-15.4 [facility] Work Phone: Comment on above: PATIENT WAS FASTINGP ERFORMED BY: [address] [id number] Information: [id number] Hematocrit Auto Volume Fraction (Bld) 35.3 % Normal 34.0-46.6 [facility] Work Phone: Hematocrit Volume Fraction (Bld) 35.3 % Normal 34.0-46.6 [facility] Work Phone: Comment on above: PATIENT WAS FASTINGP ERFORMED BY: [address] [id number] Information: [id number] Hemoglobin mass conc (Bld) 11.7 g/dL Normal 11.1-15.9 [facility] Work Phone: Comment on above: PATIENT WAS FASTINGP ERFORMED BY: [address] [id number] Information: [id number] Immature granulocytes #/vol (Bld) 0.0 {x10E3/uL} Normal 0.0-0.1 [facility] Work Phone: Comment on above: PATIENT WAS FASTINGP ERFORMED BY: [address] [id number] Information: [id number] Immature granulocytes/100 WBC (Bld) 0 % Normal [facility] Work Phone: Comment on above: PATIENT WAS FASTINGP ERFORMED BY: [address] [id number] Information: [id number] Lymphocytes #/vol (Bld) 1.3 {x10E3/uL} Normal 0.7-3.1 [facility] Work Phone: Comment on above: PATIENT WAS FASTINGP ERFORMED BY: [address] [id number] Information: [id number] Lymphocytes Auto #/vol (Bld) 1.3 {x10E3/uL} Normal 0.7-3.1 [facility] Work Phone: Lymphocytes/100 WBC (Bld) 42 % Normal [facility] Work Phone: Comment on above: PATIENT WAS FASTINGP ERFORMED BY: [address] [id number] Information: [id number] Lymphocytes/100 WBC Auto (Bld) 42 % Normal [facility] Work Phone: MCH Auto Entitic mass (RBC) 28.8 pg Normal 26.6-33.0 [facility] Work Phone: MCH Entitic mass (RBC) 28.8 pg Normal 26.6-33.0 [facility]erensive Internal Medicine Work Phone: Comment on above: PATIENT WAS FASTINGP ERFORMED BY: SecondbrainChrist HospitalOtfagj8206 [facility] [id number] Information: [id number] MCHC Auto mass conc (RBC) 33.1 g/dL Normal 31.5-35.7 [facility] Work Phone: MCHC mass conc (RBC) 33.1 g/dL Normal 31.5-35.7 [facility] Work Phone: Comment on above: PATIENT WAS FASTINGP ERFORMED BY: [place] [address] [id number] Information: [id number] MCV Auto Entitic volume (RBC) 87 fL Normal 79-97 [facility] Work Phone: MCV Entitic volume (RBC) 87 fL Normal 79-97 [facility] Work Phone: Comment on above: PATIENT WAS FASTINGP ERFORMED BY: [place] [address] [facility] [id number] Information: [id number] Monocytes #/vol (Bld) 0.2 {x10E3/uL} Normal 0.1-0.9 [facility] Work Phone: Comment on above: PATIENT WAS FASTINGP ERFORMED BY: [place] [address] [facility] [id number] Information: [id number] Monocytes Auto #/vol (Bld) 0.2 {x10E3/uL} Normal 0.1-0.9 [facility] Work Phone: Monocytes/100 WBC (Bld) 5 % Normal [facility] Work Phone: Comment on above: PATIENT WAS FASTINGP ERFORMED BY: ALEX [facility] CenterCruzDonald Ville [address] [facility] [id number] Information: [id number] Monocytes/100 WBC Auto (Bld) 5 % Normal [facility] Work Phone: Neutrophils #/vol (Bld) 1.5 {x10E3/uL} Normal 1.4-7.0 [facility] Work Phone: Comment on above: PATIENT WAS FASTINGP ERFORMED BY: ALEX [facility] Doldul8692 [facility] [id number] Information: [id number] Neutrophils Auto #/vol (Bld) 1.5 {x10E3/uL} Normal 1.4-7.0 [facility] Work Phone: Neutrophils/100 WBC (Bld) 47 % Normal [facility] Work Phone: Comment on above: PATIENT WAS FASTINGP ERFORMED BY: ALEX [place] [id number] [facility] [id number] Information: [id number] Neutrophils/100 WBC Auto (Bld) 47 % Normal [facility] Work Phone: Platelets #/vol (Bld) 225 {x10E3/uL} Normal 150-379 [facility] Work Phone: Comment on above: PATIENT WAS FASTINGP ERFORMED BY: ALEX [place] [id number] [facility] [id number] Information: [id number] Platelets Auto #/vol (Bld) 225 {x10E3/uL} Normal 150-379 [facility] Work Phone: RBC #/vol (Bld) 4.06 {x10E6/uL} Normal 3.77-5.28 Comp rehensive Internal Medicine Work Phone: Comment on above: PATIENT WAS FASTINGP ERFORMED BY: CB [facility]Wal[facility]6[address] [facility] [id number] Information: [id number] RBC Auto #/vol (Bld) 4.06 {x10E6/uL} Normal 3.77-5.28 [facility] Internal Medicine Work Phone: WBC #/vol (Bld) 3.2 {x10E3/uL} Abnormal 3.4-10.8 [facility] Internal Medicine Work Phone: Comment on above: PATIENT WAS FASTINGP ERFORMED BY: ALEX [facility]6370 [facility] [id number] Information: [id number] WBC Auto #/vol (Bld) 3.2 {x10E3/uL} Abnormal 3.4-10.8 [facility] Internal Medicine Work Phone: Comp. Metabolic Panel (14)Or dered By: Automotive Engineering Teacher on 01-10-2015 Albumin mass conc 4.0 g/dL Normal 3.6-4.8 [facility] Internal Medicine Work Phone: Comment on above: PATIENT WAS FASTINGP ERFORMED BY: ALEX [facility] Fgdajz5947 [facility] [id number] Albumin/Globulin mass ratio 1.6 {ratio} Normal 1.1-2.5 [facility] Internal Medicine Work Phone: Comment on above: PATIENT WAS FASTINGP ERFORMED BY: ALEX [facility]Wal[facility]6[address] [facility] [id number] ALP enzyme act/vol 82 [iU]/L Normal 39-117 [facility] Internal Medicine Work Phone: Comment on above: PATIENT WAS FASTINGP ERFORMED BY: ALEX [facility]Wal[facility]6[address] [facility] [id number] ALT enzyme act/vol 10 [iU]/L Normal 0-32 [facility] Internal Medicine Work Phone: Comment on above: PATIENT WAS FASTINGP ERFORMED BY: ALEX [facility]6[address] [facility] [id number] AST enzyme act/vol 18 [iU]/L Normal 0-40 [facility] Internal Medicine Work Phone: Comment on above: PATIENT WAS FASTINGP ERFORMED BY: ALEX LabCodaniella VillegasUcenxj8913 [address] [facility] [id number] Bilirubin mass conc 0.4 mg/dL Normal 0.0-1.2 [facility] Internal Medicine Work Phone: Comment on above: PATIENT WAS FASTINGP ERFORMED BY: ALEX [facility] Lhdbeq2000 [address] [facility] [id number] Calcium mass conc 9.6 mg/dL Normal 8.7-10.3 Compreh [facility] Internal Medicine Work Phone: Comment on above: PATIENT WAS FASTINGP ERFORMED BY: ALEX LabTravis ManleyKvrawr4797 [facility] [id number] Chloride molar conc 105 mmol/L Normal 97-108 Compr [facility] Internal Medicine Work Phone: Comment on above: PATIENT WAS FASTINGP ERFORMED BY: ALEX LabCruz Vewkoe4168 [facility] [id number] CO2 molar conc 24 mmol/L Normal 18-29 Comprehens [facility] Internal Medicine Work Phone: Comment on above: PATIENT WAS FASTINGP ERFORMED BY: ALEX LabTravis ManleyTidiec7555 [facility] [id number] Creatinine mass conc 0.96 mg/dL Normal 0.57-1.00 Comp [facility] Internal Medicine Work Phone: Comment on above: PATIENT WAS FASTINGP ERFORMED BY: LabCo Agcrge0346 [facility] [id number] GFR/1.73 sq M predicted among blacks CKD-EPI vol rate/area (S/P/Bld) 70 mL/min/1.73 Normal [facility] Work Phone: Comment on above: PATIENT WAS FASTINGP ERFORMED BY: [facility] Torouk0579 [address] [facility] [id number] GFR/1.73 sq M predicted among non-blacks CKD-EPI vol rate/area (S/P/Bld) 61 mL/min/1.73 Normal Comprehensiv e Internal Medicine Work Phone: Comment on above: PATIENT WAS FASTINGP ERFORMED BY: ALEX LabTravis ManleyHutjgv9240 [facility] [id number] Globulin Calculated mass conc (S) 2.5 g/dL Normal 1.5-4.5 [facility] Work Phone: Globulin mass conc (S) 2.5 g/dL Normal 1.5-4.5 Co mprehensive Internal Medicine Work Phone: Comment on above: PATIENT WAS FASTINGP ERFORMED BY: ALEX Villegas6370 [facility] [id number] Glucose mass conc 96 mg/dL Normal 65-99 Compreh ensive Internal Medicine Work Phone: Comment on above: PATIENT WAS FASTINGP ERFORMED BY: ALEX Villegas6370 [facility] [id number] Potassium molar conc 4.5 mmol/L Normal 3.5-5.2 Comp rehensive Internal Medicine Work Phone: Comment on above: PATIENT WAS FASTINGP ERFORMED BY: ALEX Manleylin6370 [facility] [id number] Protein mass conc 6.5 g/dL Normal 6.0-8.5 Compreh ensive Internal Medicine Work Phone: Comment on above: PATIENT WAS FASTINGP ERFORMED BY: ALEX LabTravis ManleyBoqemk2596 [facility] [id number] Sodium molar conc 136 mmol/L Normal 134-144 Compreh ensive Internal Medicine Work Phone: Comment on above: PATIENT WAS FASTINGP ERFORMED BY: ALEX LabTravis ManleyJbkiec0192 [facility] [id number] Urea nitrogen mass conc 16 mg/dL Normal 8-27 [facility] Work Phone: Comment on above: PATIENT WAS FASTINGP ERFORMED BY: ALEX LabTravis ManleyGceamp8176 [address] [facility] [id number] Urea nitrogen/Creatinine mass ratio 17 mg/mg Normal 11-26 [facility] Work Phone: Comment on above: PATIENT WAS FASTINGP ERFORMED BY: ALEX LabTravis Oeevdm8104 [address] [facility] [id number] Lipid Panel With LDL/HDL Rat ioOrdered By: Automotive Engineering Teacher on 01-10-2015 Cholesterol in HDL mass conc 85 mg/dL Normal [facility] Work Phone: Comment on above: According to ATP-III Guidelines, HDL-C >59 mg/dL is considered anegative risk factor for CHD. PATIENT WAS FASTINGP ERFORMED BY: ALEX Villegas[address] [facility] [id number] Cholesterol in LDL mass conc 126 mg/dL Abnormal 0-99 [facility] Work Phone: Comment on above: PATIENT WAS FASTINGP ERFORMED BY: ALEX Manleylin6370 [address] [facility] [id number] Cholesterol in LDL/Cholesterol in HDL mass ratio 1.5 {ratio_units} Normal 0.0-3.2 [facility] Work Phone: Comment on above: LDL/HDL Ratio Men Wo men 1/2 Avg.Risk 1.0 1.5 Avg.Risk 3.6 3.2 2X Avg.Risk 6.2 5.0 3X Avg.Risk 8.0 6.1 PATIENT WAS FASTINGP ERFORMED BY: ALEX Manleylin6370 [address] [facility]EC[facility] [id number] Cholesterol in VLDL mass conc 10 mg/dL Normal 5-40 [facility] Work Phone: Comment on above: PATIENT WAS FASTINGP ERFORMED BY: ALEX LabTravis ManleyRzldno4053 [address] [facility] [place] [id number] Cholesterol mass conc 221 mg/dL Abnormal 100-199 Com prehensive Internal Medicine Work Phone: Comment on above: PATIENT WAS FASTINGP ERFORMED BY: ALEX Manleylin6370 [address] [facility]Life[facility] [id number] Triglyceride mass conc 52 mg/dL Normal 0-149 Co [facility] careehens[facility] Internal Medicine Work Phone: Comment on above: PATIENT WAS FASTINGP ERFORMED BY: CB [facility] Qqgoeb0605 [address] RoadDublin [place] [id number] Microalb/Creat Ratio, Az UrOrdered By: Automotive Engineering Teacher on 01-10-2015 Albumin DL <= 20 mg/L mass conc (U) 8.4 ug/mL Normal 0.0-17.0 [facility] Work Phone: Comment on above: PATIENT WAS FASTINGP ERFORMED BY: CB [facility] Nymxhv7580 [address] RoadDublin [place] [id number] Albumin/Creatinine mass ratio (U) 11.5 {mg/g_creat} Normal 0.0-30.0 [facility] Work Phone: Comment on above: PATIENT WAS FASTINGP ERFORMED BY: CB [facility] Hjiaqj2938 [address] RoadDublin [place] [id number] Creatinine mass conc (U) 73.1 mg/dL Normal 15.0-278.0 [facility] Work Phone: Comment on above: PATIENT WAS FASTINGP ERFORMED BY: CB [facility] Gpfljw4295 [address] RoadDublin [place] [id number] Microscopic ExaminationOrder ed By: Automotive Engineering Teacher on 01-10-2015 Bacteria LM.HPF #/area (Urine sed) Few Normal [facility] Work Phone: Comment on above: PATIENT WAS FASTINGP ERFORMED BY: CB [facility] Cbmupa4604 [address] RoadDublin [place] [id number] Epithelial cells LM.HPF #/area (Urine sed) 0-10 Normal 0 - 10 [facility] Work Phone: Comment on above: PATIENT WAS FASTINGP ERFORMED BY: CB [facility] Fjkitm6730 [address] RoadDublin [place] [id number] Mucus LM Ql (Urine sed) Present Normal [facility] Work Phone: Mucus Ql (Urine sed) Present Normal Comp rehensive Internal Medicine Work Phone: Comment on above: PATIENT WAS FASTINGP ERFORMED BY: CB [facility] Eqelgg1706 [address] RoadDublin [place] [id number] RBC LM.HPF #/area (Urine sed) 3-10 Abnormal 0 - 2 [facility] Work Phone: Comment on above: PATIENT WAS FASTINGP ERFORMED BY: ALEX [facility] Eucrvt8938 [address] RoadDublin [place] [id number] WBC LM.HPF #/area (Urine sed) 6-10 Abnormal 0 - 5 [facility] Work Phone: Comment on above: PATIENT WAS FASTINGP ERFORMED BY: [facility] Pclpnj8574 [address] [place] [place] [facility]blin [place] [id number] Urinalysis, CompleteOrdered By: Automotive Engineering Teacher on 01-10-2015 Appearance Nom (U) Clear Normal Compre hensive Internal Medicine Work Phone: Comment on above: PATIENT WAS FASTINGP ERFORMED BY: ALEX [facility] Mtllda0047 [address] RoadDublin [place] [id number] Bilirubin Ql (U) Negative Normal Comprehe nsive Internal Medicine Work Phone: Comment on above: PATIENT WAS FASTINGP ERFORMED BY: ALEX [facility] Lphdti0584 [address] RoadColumbus Regional Healthcare Systemin [place] [id number] Color Nom (U) Yellow Normal Comprehensi ve Internal Medicine Work Phone: Comment on above: PATIENT WAS FASTINGP ERFORMED BY: ALEX [facility] Bkgevr4052 [address] RoadDublin [place] [id number] Glucose Ql (U) Negative Normal Comprehens shanta Internal Medicine Work Phone: Comment on above: PATIENT WAS FASTINGP ERFORMED BY: [facility] Pfinqa2338 [address] RoadDublin [place] [id number] Hemoglobin Ql (U) 2+ Abnormal Compreh ensive Internal Medicine Work Phone: Comment on above: PATIENT WAS FASTINGP ERFORMED BY: [facility] Hypagc6361 [address] RoadDublin [place] [id number] Hemoglobin Test strip Ql (U) 2+ Abnormal [facility] Work Phone: Ketones Ql (U) Negative Normal Comprehens shanta Internal Medicine Work Phone: Comment on above: PATIENT WAS FASTINGP ERFORMED BY: ALEX LabCodaniella ManleyThvget6597 [address] RoadDublin [place] [id number] Leukocyte esterase Test strip Ql (U) 2+ Abnormal [facility] Work Phone: Comment on above: PATIENT WAS FASTINGP ERFORMED BY: ALEX Manleylin6370 [address] RoadD[address] [place] [id number] Microscopic observation LM Nom (Urine sed) See below: Normal [facility] Work Phone: Comment on above: Microscopic was jared cated and was performed. PATIENT WAS FASTINGP ERFORMED BY: ALEX LabTravis ManleyZovgwl3747 [address] RoadDublin [place] [id number] Nitrite Ql (U) Negative Normal Comprehens shanta Internal Medicine Work Phone: Comment on above: PATIENT WAS FASTINGP ERFORMED BY: ALEX Manleylin6370 [address] [place] [id number] Nitrite Test strip Ql (U) Negative Normal [facility] Work Phone: pH (U) 7.0 [pH] Normal 5.0-7.5 [facility] Work Phone: Comment on above: PATIENT WAS FASTINGP ERFORMED BY: ALEX Villegas6370 [address] [place] [id number] pH Test strip (U) 7.0 [pH] Normal 5.0-7.5 Compreh ensive Internal Medicine Work Phone: Protein Ql (U) Negative Normal Comprehens shanta Internal Medicine Work Phone: Comment on above: PATIENT WAS FASTINGP ERFORMED BY: ALEX LabTravis ManleyZtjxkz0737 [address] RoadDublin [place] [id number] Protein Test strip Ql (U) Negative Normal [facility] Work Phone: Specific gravity Relative Density (U) 1.016 1 Normal 1.005-1.030 Comprehensi ve Internal Medicine Work Phone: Comment on above: PATIENT WAS FASTINGP ERFORMED BY: ALEX LabCodaniella ManleyMjyhev0810 [address] RoadDublin [place] [id number] Urobilinogen Test strip mass conc (U) 1.0 mg/dL Normal 0.0-1.9 Comprehensiv e Internal Medicine Work Phone: Comment on above: PATIENT WAS FASTINGP ERFORMED BY: ALEX Villegas6370 [address] [facility] [id number] METABOLIC PANEL, COMPREHENSI VE ([id number])Ordered By: Automotive Engineering Teacher on 12-15-2013 Albumin mass conc 4.5 g/dL Normal 3.6-4.8 Compreh ensive Internal Medicine Work Phone: Comment on above: PATIENT NOT FASTINGP ERFORMED BY: ALEX [facility] Vchibx7631 [facility] [id number] Information: [id number],DIFFICULT DR WORRELL Albumin/Globulin mass ratio 1.9 {ratio} Normal 1.1-2.5 [facility] Work Phone: Comment on above: PATIENT NOT FASTINGP ERFORMED BY: ALEX AjithTravis ManleyXtvbxq2955 [facility] [id number] Information: [id number],DIFFICULT DR WORRELL ALP [Catalytic activity/Vol] 77 U/L Normal 39-117 [facility]; [facility] Internal Medicine Work Phone: ALP enzyme act/vol 77 [iU]/L Normal 39-117 [facility] Internal Medicine Work Phone: Comment on above: PATIENT NOT FASTINGP ERFORMED BY: ALEX AjithTravis ManleyHxpobc6225 [facility]ilaMet[facility] [id number] Information: [id number],DIFFICULT DR WORRELL ALT [Catalytic activity/Vol] 11 U/L Normal 0-32 [facility]; [facility] Internal Medicine Work Phone: ALT enzyme act/vol 11 [iU]/L Normal 0-32 [facility] Internal Medicine Work Phone: Comment on above: PATIENT NOT FASTINGP ERFORMED BY: ALEX [facility] Roynpz6482 [facility] [id number] Information: [id number],DIFFICULT DR AW AST [Catalytic activity/Vol] 19 U/L Normal 0-40 [facility]; [facility] Work Phone: AST enzyme act/vol 19 [iU]/L Normal 0-40 [facility] Internal Medicine Work Phone: Comment on above: PATIENT NOT FASTINGP ERFORMED BY: CB [facility] Ytgwur4775 [address] RoadDublin [place] [id number] Information: [id number],DIFFICULT DR AW Bilirubin mass conc 0.3 mg/dL Normal 0.0-1.2 [facility] Internal Medicine Work Phone: Comment on above: PATIENT NOT FASTINGP ERFORMED BY: CB [facility] Qrawzy9756 [address] RoadDublin [place] [id number] Information: [id number],DIFFICULT DR AW Calcium mass conc 9.5 mg/dL Normal 8.6-10.2 [facility] Internal Medicine Work Phone: Comment on above: PATIENT NOT FASTINGP ERFORMED BY: CB [facility] Udxehj9320 [address] RoadDublin [place] [id number] Information: [id number],DIFFICULT DR AW Chloride molar conc 102 mmol/L Normal 97-108 [facility] Internal Medicine Work Phone: Comment on above: PATIENT NOT FASTINGP ERFORMED BY: CB [facility] Hlbqkp1008 [address] RoadDublin [place] [id number] Information: [id number],DIFFICULT DR AW CO2 molar conc 22 mmol/L Normal 19-28 [facility]hwatson[facility] Work Phone: Comment on above: Effective December 28, 2013, the reference interval for Carbon Dioxide, Total will be changing to: 0 - 30 days 15 - 27 31 d - 5 months 15 - 26 6 m - 11 months 15 - 25 1 - 12 years 17 - 27 > 12 years 18 - 29 PATIENT NOT FASTINGP ERFORMED BY: CB [facility] Dqyder6319 [address] RoadDublin [place] [id number] Information: [id number],DIFFICULT DR AW Creatinine mass conc 1.10 mg/dL Abnormal 0.57-1.00 [facility] Work Phone: Comment on above: PATIENT NOT FASTINGP ERFORMED BY: ALEX [facility] Mscoib0520 [facility] [id number] Information: [id number],DIFFICULT DR WORRELL GFR/1.73 sq M predicted among blacks CKD-EPI vol rate/area (S/P/Bld) 60 mL/min/1.73 Normal [facility] Work Phone: Comment on above: PATIENT NOT FASTINGP ERFORMED BY: CB [facility] Gezejh7126 [facility] [id number] Information: [id number],DIFFICULT DR WORRELL GFR/1.73 sq M predicted among non-blacks CKD-EPI vol rate/area (S/P/Bld) 52 mL/min/1.73 Abnormal Comprehensiv e Internal Medicine Work Phone: Comment on above: PATIENT NOT FASTINGP ERFORMED BY: [facility] Rcedwy4754 [facility] [id number] Information: [id number],DIFFICULT DR WORRELL Globulin Calculated mass conc (S) 2.4 g/dL Normal 1.5-4.5 [facility] Work Phone: Globulin mass conc (S) 2.4 g/dL Normal 1.5-4.5 [facility] Work Phone: Comment on above: PATIENT NOT FASTINGP ERFORMED BY: CB [facility] Azxtag8346 [facility] [id number] Information: [id number],DIFFICULT DR WORRELL Glucose mass conc 95 mg/dL Normal 65-99 Compreh ensive Internal Medicine Work Phone: Comment on above: PATIENT NOT FASTINGP ERFORMED BY: CB [facility] Rmmohl2553 [facility] [id number] Information: [id number],DIFFICULT DR WORRELL Potassium molar conc 4.7 mmol/L Normal 3.5-5.2 Comp rehensive Internal Medicine Work Phone: Comment on above: PATIENT NOT FASTINGP ERFORMED BY: ALEX Villegas6370 [facility] [id number] Information: [id number],DIFFICULT DR AW Protein mass conc 6.9 g/dL Normal 6.0-8.5 Compreh ensive Internal Medicine Work Phone: Comment on above: PATIENT NOT FASTINGP ERFORMED BY: ALEX [facility] Flewok9293 [address] [facility] [id number] Information: [id number],DIFFICULT AW Sodium molar conc 141 mmol/L Normal 134-144 Compreh ensive Internal Medicine Work Phone: Comment on above: PATIENT NOT FASTINGP ERFORMED BY: ALEX LabCruz Rlfswj7949 [facility] [id number] Information: [id number],DIFFICULT DR WORRELL Urea nitrogen mass conc 22 mg/dL Normal 8- [facility] Work Phone: Comment on above: PATIENT NOT FASTINGP ERFORMED BY: ALEX [facility] Odedut0117 [facility] [id number] Information: [id number],DIFFICULT DR AW Urea nitrogen/Creatinine mass ratio 20 mg/mg Normal 11- [facility] Work Phone: Comment on above: PATIENT NOT FASTINGP ERFORMED BY: [facility] Kbdoyp7864 [facility] [id number] Information: [id number],DIFFICULT DR AW Rapid Flu (95764 x 2)Ordered By: Bailee Mckeon on 05-20-2013 FLUAV Ag IA Ql (Throat) Negative Normal [facility] Work Phone: FLUAV Ag IA Ql (Throat) Negative Normal [facility]; [facility] Work Phone: Rapid Strep Test, Office ([phone])Ordered By: Bailee Mckeon on 05-20-2013 S. pyogenes Ag EIA Ql (Throat) Negative Normal [facility]; [facility] Work Phone: S. pyogenes Ag IA Ql (Unsp spec) Negative Normal [facility] Work Phone: CBC WITH MANUAL DIFF ([phone]) Ordered By: Automotive Engineering Teacher on 04-15-2013 Basophils #/vol (Bld) 0.0 {x10E3/uL} Normal 0.0-0.2 [facility] Work Phone: Comment on above: PATIENT WAS FASTINGP ERFORMED BY: [facility]brainChrist HospitalJxiugb0751 [facility] [id number] Information: [id number] Basophils (Bld) [#/Vol] 0.0 10*3/uL Normal 0.0-0.2 [facility]; [facility] Work Phone: Basophils Auto #/vol (Bld) 0.0 {x10E3/uL} Normal 0.0-0.2 [facility] Work Phone: Basophils/100 WBC (Bld) 1 % Normal 0-3 [facility] Work Phone: Comment on above: PATIENT WAS FASTINGP ERFORMED BY: [facility]brainChrist HospitalZpeavx0681 [facility] [id number] Information: [id number] Basophils/100 WBC Auto (Bld) 1 % Normal 0-3 [facility] Work Phone: Eosinophils #/vol (Bld) 0.3 {x10E3/uL} Normal 0.0-0.4 [facility] Work Phone: Comment on above: PATIENT WAS FASTINGP ERFORMED BY: [facility]brainChrist HospitalFnzgmr6533 [facility] [id number] Information: [id number] Eosinophils (Bld) [#/Vol] 0.3 10*3/uL Normal 0.0-0.4 [facility]; [facility] Work Phone: Eosinophils Auto #/vol (Bld) 0.3 {x10E3/uL} Normal 0.0-0.4 [facility] Work Phone: Eosinophils/100 WBC (Bld) 6 % Abnormal 0-5 [facility] Work Phone: Comment on above: PATIENT WAS FASTINGP ERFORMED BY: ALEX [facility] Dingeo5849 [facility] [id number] Information: [id number] Eosinophils/100 WBC Auto (Bld) 6 % Abnormal 0-5 [facility] Work Phone: Erythrocyte distribution width Auto Ratio (RBC) 13.8 % Normal 12.3-15.4 [facility] Work Phone: Erythrocyte distribution width Ratio (RBC) 13.8 % Normal 12.3-15.4 [facility] Work Phone: Comment on above: PATIENT WAS FASTINGP ERFORMED BY: [address] [id number] Information: [id number] Hematocrit Auto Volume Fraction (Bld) 35.1 % Normal 34.0-46.6 [facility] Work Phone: Hematocrit Volume Fraction (Bld) 35.1 % Normal 34.0-46.6 [facility] Work Phone: Comment on above: PATIENT WAS FASTINGP ERFORMED BY: [facility]6370 [facility] [id number] Information: [id number] Hemoglobin mass conc (Bld) 11.8 g/dL Normal 11.1-15.9 [facility] Work Phone: Comment on above: PATIENT WAS FASTINGP ERFORMED BY: [place] [address] [facility] [id number] Information: [id number] Immature granulocytes #/vol (Bld) 0.0 {x10E3/uL} Normal 0.0-0.1 [facility] Work Phone: Comment on above: PATIENT WAS FASTINGP ERFORMED BY: [address] [id number] Information: [id number] Immature granulocytes (Bld) [#/Vol] 0.0 10*3/uL Normal 0.0-0.1 [facility]; [facility] Work Phone: Immature granulocytes/100 WBC (Bld) 0 % Normal 0-2 [facility] Work Phone: Comment on above: PATIENT WAS FASTINGP ERFORMED BY: ALEX [place] [address] [facility] [id number] Information: [id number] Lymphocytes #/vol (Bld) 1.7 {x10E3/uL} Normal 0.7-3.1 [facility] Work Phone: Comment on above: PATIENT WAS FASTINGP ERFORMED BY: ALEX [address] [id number] Information: [id number] Lymphocytes (Bld) [#/Vol] 1.7 10*3/uL Normal 0.7-3.1 [facility]; [facility] Work Phone: Lymphocytes Auto #/vol (Bld) 1.7 {x10E3/uL} Normal 0.7-3.1 [facility] Work Phone: Lymphocytes/100 WBC (Bld) 39 % Normal -46 [facility] Work Phone: Comment on above: PATIENT WAS FASTINGP ERFORMED BY: [place] [address] [facility] [id number] Information: [id number] Lymphocytes/100 WBC Auto (Bld) 39 % Normal 14-46 [facility] Work Phone: MCH Auto Entitic mass (RBC) 29.9 pg Normal 26.6-33.0 [facility] Work Phone: MCH Entitic mass (RBC) 29.9 pg Normal 26.6-33.0 [facility] Work Phone: Comment on above: PATIENT WAS FASTINGP ERFORMED BY: [place] [address] [facility] [id number] Information: [id number] MCHC Auto mass conc (RBC) 33.6 g/dL Normal 31.5-35.7 Comprehensive Internal Medicine Work Phone: MCHC mass conc (RBC) 33.6 g/dL Normal 31.5-35.7 [facility] Work Phone: Comment on above: PATIENT WAS FASTINGP ERFORMED BY: [address] [id number] Information: [id number] MCV Auto Entitic volume (RBC) 89 fL Normal 79-97 [facility] Work Phone: MCV Entitic volume (RBC) 89 fL Normal 79-97 [facility] Work Phone: Comment on above: PATIENT WAS FASTINGP ERFORMED BY: [address] [id number] Information: [id number] Monocytes #/vol (Bld) 0.3 {x10E3/uL} Normal 0.1-0.9 [facility] Work Phone: Comment on above: PATIENT WAS FASTINGP ERFORMED BY: [address] [id number] Information: [id number] Monocytes (Bld) [#/Vol] 0.3 10*3/uL Normal 0.1-0.9 [facility]; [facility] Work Phone: Monocytes Auto #/vol (Bld) 0.3 {x10E3/uL} Normal 0.1-0.9 [facility] Work Phone: Monocytes/100 WBC (Bld) 6 % Normal 4-12 [facility] Work Phone: Comment on above: PATIENT WAS FASTINGP ERFORMED BY: [address] [id number] Information: [id number] Monocytes/100 WBC Auto (Bld) 6 % Normal 4-12 [facility] Work Phone: Neutrophils #/vol (Bld) 2.1 {x10E3/uL} Normal 1.4-7.0 [facility] Work Phone: Comment on above: PATIENT WAS FASTINGP ERFORMED BY: [place] [id number] [facility] [id number] Information: [id number] Neutrophils (Bld) [#/Vol] 2.1 10*3/uL Normal 1.4-7.0 [facility]; [facility] Work Phone: Neutrophils Auto #/vol (Bld) 2.1 {x10E3/uL} Normal 1.4-7.0 [facility] Work Phone: Neutrophils/100 WBC (Bld) 48 % Normal 40-74 [facility] Work Phone: Comment on above: PATIENT WAS FASTINGP ERFORMED BY: SecondbrainChrist HospitalIswinj1263 [facility] [id number] Information: [id number] Neutrophils/100 WBC Auto (Bld) 48 % Normal 40-74 [facility] Work Phone: Platelets #/vol (Bld) 224 {x10E3/uL} Normal 155-379 [facility] Work Phone: Comment on above: PATIENT WAS FASTINGP ERFORMED BY: [place] [id number] [facility] [id number] Information: [id number] Platelets (Bld) [#/Vol] 224 10*3/uL Normal 155-379 [facility]; [facility] Work Phone: Platelets Auto #/vol (Bld) 224 {x10E3/uL} Normal 155-379 [facility] Work Phone: RBC #/vol (Bld) 3.94 {x10E6/uL} Normal 3.77-5.28 Comp rehensive Internal Medicine Work Phone: Comment on above: PATIENT WAS FASTINGP ERFORMED BY: ALEX LabCo Nbzgvk3354 [facility] [id number] Information: [id number] RBC (Bld) [#/Vol] 3.94 10*6/uL Normal 3.77-5.28 [facility]; [facility] Work Phone: RBC Auto #/vol (Bld) 3.94 {x10E6/uL} Normal 3.77-5.28 [facility] Work Phone: WBC #/vol (Bld) 4.4 {x10E3/uL} Normal 3.4-10.8 [facility] Internal Medicine Work Phone: Comment on above: PATIENT WAS FASTINGP ERFORMED BY: ALEX [employer] Ddeoto7443 [facility] [id number] Information: [id number] WBC (Bld) [#/Vol] 4.4 10*3/uL Normal 3.4-10.8 [facility]; [facility] Work Phone: WBC Auto #/vol (Bld) 4.4 {x10E3/uL} Normal 3.4-10.8 [facility] Work Phone: LIPID PANEL ([id number])Ordered B y: Automotive Engineering Teacher on 04-15-2013 Cholesterol in HDL mass conc 88 mg/dL Normal [facility] Work Phone: Comment on above: According to ATP-III Guidelines, HDL-C >59 mg/dL is considered anegative risk factor for CHD. PATIENT WAS FASTINGP ERFORMED BY: ALEX [employer] Ixmscq5236 [address] [facility] [id number] Cholesterol in LDL mass conc 106 mg/dL Abnormal 0-99 [facility] Work Phone: Comment on above: PATIENT WAS FASTINGP ERFORMED BY: ALEX [employer]370 [facility] [id number] Cholesterol in LDL/Cholesterol in HDL mass ratio 1.2 {ratio_units} Normal 0.0-3.2 [facility] Work Phone: Comment on above: PATIENT WAS FASTINGP ERFORMED BY: ALEX LabCodaniella Jbacbw6975 [address] [facility] [place] [id number] Cholesterol in VLDL mass conc 12 mg/dL Normal 5-40 [facility] Work Phone: Comment on above: PATIENT WAS FASTINGP ERFORMED BY: ALEX LabCodaniella ManleyRxlbxb7215 [address] [facility] [place] [id number] Cholesterol mass conc 206 mg/dL Abnormal 100-199 Com prehensive Internal Medicine Work Phone: Comment on above: PATIENT WAS FASTINGP ERFORMED BY: ALEX LabCodaniella Ibwpgy9677 [address] [facility] [place] [id number] Triglyceride mass conc 62 mg/dL Normal 0-149 [facility] centerensive Internal Medicine Work Phone: Comment on above: PATIENT WAS FASTINGP ERFORMED BY: ALEX LabTravis ManleyIclfuy6033 [facility] [id number] METABOLIC PANEL, COMPREHENSI VE ([id number])Ordered By: Automotive Engineering Teacher on 04-15-2013 Albumin mass conc 4.3 g/dL Normal 3.6-4.8 Compreh [facility] health[facility] Internal Medicine Work Phone: Comment on above: PATIENT WAS FASTINGP ERFORMED BY: ALEX LabTravis ManleyVrfpaz5482 [facility] [id number] Albumin/Globulin mass ratio 1.6 {ratio} Normal 1.1-2.5 [facility] Work Phone: Comment on above: PATIENT WAS FASTINGP ERFORMED BY: ALEX [facility] Psjebw8735 [address] [facility] [place] [id number] ALP [Catalytic activity/Vol] 82 U/L Normal 47-112 [facility]; [facility] Work Phone: ALP enzyme act/vol 82 [iU]/L Normal 47-112 Compre [facility] Internal Medicine Work Phone: Comment on above: PATIENT WAS FASTINGP ERFORMED BY: ALEX [facility] Pqlupf7853 [address] [facility]in [place] [id number] ALT [Catalytic activity/Vol] 15 U/L Normal 0-32 [facility]; [facility] Internal Medicine Work Phone: ALT enzyme act/vol 15 [iU]/L Normal 0-32 [facility] Internal Medicine Work Phone: Comment on above: PATIENT WAS FASTINGP ERFORMED BY: ALEX [facility] Ycevah8111 [address] RoadDublin [place] [id number] AST [Catalytic activity/Vol] 20 U/L Normal 0-40 [facility] Internal Medicine; [facility] Internal Medicine Work Phone: AST enzyme act/vol 20 [iU]/L Normal 0-40 [facility] Internal Medicine Work Phone: Comment on above: PATIENT WAS FASTINGP ERFORMED BY: ALEX [facility] Soekxa6465 Avila RoadDublin [place] [id number] Bilirubin mass conc 0.3 mg/dL Normal 0.0-1.2 [facility] Internal Medicine Work Phone: Comment on above: PATIENT WAS FASTINGP ERFORMED BY: [facility] Nmprxw6726 Avila RoadDublin [place] [id number] Calcium mass conc 9.4 mg/dL Normal 8.6-10.2 Compreh [facility] healthive Internal Medicine Work Phone: Comment on above: PATIENT WAS FASTINGP ERFORMED BY: [facility] Zejxxl1807 Av[address] RoadDublin [place] [id number] Chloride molar conc 104 mmol/L Normal 97-108 Compr [facility] Internal Medicine Work Phone: Comment on above: PATIENT WAS FASTINGP ERFORMED BY: [facility] Ccdreb8348 [address] RoadDublin [place] [id number] CO2 molar conc 22 mmol/L Normal 19-28 Comprehens [facility] Internal Medicine Work Phone: Comment on above: PATIENT WAS FASTINGP ERFORMED BY: [facility] Facmnq6644 [address] RoadDublin [place] [id number] Creatinine mass conc 0.95 mg/dL Normal 0.57-1.00 Comp [facility] Internal Medicine Work Phone: Comment on above: PATIENT WAS FASTINGP ERFORMED BY: ALEX Manleylin6370 [address] Roadblin [place] [id number] GFR/1.73 sq M predicted among blacks CKD-EPI vol rate/area (S/P/Bld) 72 mL/min/1.73 Normal [facility] Work Phone: Comment on above: PATIENT WAS FASTINGP ERFORMED BY: ALEX LabTravis ManleyGjjnzw2790 [address] Roadblin [place] [id number] GFR/1.73 sq M predicted among non-blacks CKD-EPI vol rate/area (S/P/Bld) 62 mL/min/1.73 Normal Comprehensiv e Internal Medicine Work Phone: Comment on above: PATIENT WAS FASTINGP ERFORMED BY: ALEX Manleylin6370 [address] [facility] [id number] Globulin Calculated mass conc (S) 2.7 g/dL Normal 1.5-4.5 [facility] Work Phone: Globulin mass conc (S) 2.7 g/dL Normal 1.5-4.5 Co mprehensive Internal Medicine Work Phone: Comment on above: PATIENT WAS FASTINGP ERFORMED BY: ALEX Manleylin6370 [facility] [id number] Glucose mass conc 97 mg/dL Normal 65-99 Compreh ensive Internal Medicine Work Phone: Comment on above: PATIENT WAS FASTINGP ERFORMED BY: ALEX Manleylin6370 [facility] [id number] Potassium molar conc 4.5 mmol/L Normal 3.5-5.2 Comp rehensive Internal Medicine Work Phone: Comment on above: PATIENT WAS FASTINGP ERFORMED BY: ALEX LabTravis ManleyDsuauv2460 [address] [facility] [id number] Protein mass conc 7.0 g/dL Normal 6.0-8.5 Compreh ensive Internal Medicine Work Phone: Comment on above: PATIENT WAS FASTINGP ERFORMED BY: ALEX LabTravis ManleyOutorw0498 [address] [facility] [id number] Sodium molar conc 141 mmol/L Normal 134-144 Compreh ensive Internal Medicine Work Phone: Comment on above: PATIENT WAS FASTINGP ERFORMED BY: ALEX LabTravis ManleyWahzgg9676 [address] RoadDublin [place] [id number] Urea nitrogen mass conc 19 mg/dL Normal 8-27 [facility] Work Phone: Comment on above: PATIENT WAS FASTINGP ERFORMED BY: ALEX LabTravis ManleyElnsnt2075 [address] RoadDublin [place] [id number] Urea nitrogen/Creatinine mass ratio 20 mg/mg Normal 11-26 [facility] Work Phone: Comment on above: PATIENT WAS FASTINGP ERFORMED BY: ALEX Manleylin6370 [address]Dublin [place] [id number] MICROALBUMINOrdered By: Syst em Holistic Nutritionist on 04-15-2013 Albumin DL <= 20 mg/L mass conc (U) 5.9 ug/mL Normal 0.0-17.0 [facility] Work Phone: Comment on above: PATIENT WAS FASTINGP ERFORMED BY: ALEX Manleylin6370 [address]Dublin [place] [id number] Albumin/Creatinine mass ratio (U) 7.0 {mg/g_creat} Normal 0.0-30.0 [facility] Work Phone: Comment on above: PATIENT WAS FASTINGP ERFORMED BY: ALEX Manleylin6370 [address]Dublin [place] [id number] Creatinine mass conc (U) 83.8 mg/dL Normal 15.0-278.0 [facility] Work Phone: Comment on above: PATIENT WAS FASTINGP ERFORMED BY: ALEX Manleylin6370 [address] [facility] HospitalDublin [place] [id number] Microscopic ExaminationOrder ed By: Automotive Engineering Teacher on 04-15-2013 Bacteria LM.HPF #/area (Urine sed) None seen Normal [facility] Work Phone: Comment on above: PATIENT WAS FASTINGP ERFORMED BY: ALEX LabTravis Fcvtwc0338 [address] RoadDublin [place] [id number] Epithelial cells LM.HPF #/area (Urine sed) 0-10 Normal 0 - 10 [facility] Work Phone: Comment on above: PATIENT WAS FASTINGP ERFORMED BY: ALEX [facility] Ssgvtg3655 [address] RoadDublin [place] [id number] Mucus LM Ql (Urine sed) Present Normal [facility] Work Phone: Mucus Ql (Urine sed) Present Normal Comp rehensive Internal Medicine Work Phone: Comment on above: PATIENT WAS FASTINGP ERFORMED BY: ALEX [facility] Gzcoqf0686 [address] RoadDublin [place] [id number] RBC LM.HPF #/area (Urine sed) 4-10 Abnormal 0 - 3 [facility] Work Phone: Comment on above: PATIENT WAS FASTINGP ERFORMED BY: ALEX [facility] Dhmian7829 [address] RoadDublin [place] [id number] WBC LM.HPF #/area (Urine sed) 0-5 Normal 0 - 5 [facility] Work Phone: Comment on above: PATIENT WAS FASTINGP ERFORMED BY: ALEX [facility] Yqyhjr3124 [address] RoadDublin [place] [id number] URINALYSIS, W/ MICRO ([id number]) Ordered By: Automotive Engineering Teacher on 04-15-2013 Appearance Nom (U) Clear Normal Compre hensive Internal Medicine Work Phone: Comment on above: PATIENT WAS FASTINGP ERFORMED BY: ALEX [facility] Mrutpc3137 [address] RoadDublin [place] [id number] Bilirubin Ql (U) Negative Normal Comprehe nsive Internal Medicine Work Phone: Comment on above: PATIENT WAS FASTINGP ERFORMED BY: CB [facility] Ovuhue2688 [address] RoadDublin [place] [id number] Bilirubin Ql (U) Negative Normal Comprehe nsive Internal Medicine; [facility] Work Phone: Color Nom (U) Yellow Normal Comprehensi ve Internal Medicine Work Phone: Comment on above: PATIENT WAS FASTINGP ERFORMED BY: CB [facility] Kqhggw4873 [address] RoadDublin [place] [id number] Glucose Ql (U) Negative Normal Comprehens shanta Internal Medicine Work Phone: Comment on above: PATIENT WAS FASTINGP ERFORMED BY: ALEX Manleylin6370 [address]Dublin [place] [id number] Glucose Ql (U) Negative Normal Comprehens shanta Internal Medicine; [facility] Work Phone: Hemoglobin Ql (U) 2+ Abnormal Compreh ensive Internal Medicine Work Phone: Comment on above: PATIENT WAS FASTINGP ERFORMED BY: ALEX [facility] Zoonrz8830 [address] RoadDublin [place] [id number] Hemoglobin Test strip Ql (U) 2+ Abnormal [facility] Work Phone: Ketones Ql (U) Negative Normal Comprehens shanta Internal Medicine Work Phone: Comment on above: PATIENT WAS FASTINGP ERFORMED BY: ALEX Manleylin6370 [address]Dublin [place] [id number] Ketones Ql (U) Negative Normal Comprehens shanta Internal Medicine; [facility] Work Phone: Leukocyte esterase Test strip Ql (U) 1+ Abnormal [facility] Work Phone: Comment on above: PATIENT WAS FASTINGP ERFORMED BY: ALEX Manleylin6370 [address]Dublin [place] [id number] Microscopic observation LM Nom (Urine sed) See below: Normal [facility] Work Phone: Comment on above: PATIENT WAS FASTINGP ERFORMED BY: ALEX [facility] Wslsbk3941 [address] RoadDublin [place] [id number] Nitrite Ql (U) Negative Normal Comprehens shanta Internal Medicine Work Phone: Comment on above: PATIENT WAS FASTINGP ERFORMED BY: ALEX Lopez Guvsxf5689 [address] RoadDublin [place] [id number] Nitrite Ql (U) Negative Normal Comprehens shanta Internal Medicine; [facility] Work Phone: Nitrite Test strip Ql (U) Negative Normal [facility] Work Phone: pH (U) 6.0 [pH] Normal 5.0-7.5 [facility] Work Phone: Comment on above: PATIENT WAS FASTINGP ERFORMED BY: ALEX LabTravis Villegas6370 [address] RoadColumbus Regional Healthcare Systemin [place] [id number] pH Test strip (U) 6.0 [pH] Normal 5.0-7.5 Compreh ensive Internal Medicine Work Phone: Protein Ql (U) Negative Normal Comprehens shanta Internal Medicine Work Phone: Comment on above: PATIENT WAS FASTINGP ERFORMED BY: ALEX Villegas[address] Ad.IQECU [facility] [id number] Protein Ql (U) Negative Normal Comprehens shanta Internal Medicine; [facility] Work Phone: Protein Test strip Ql (U) Negative Normal [facility] Work Phone: Specific gravity Relative Density (U) 1.012 1 Normal 1.005-1.030 Comprehensi ve Internal Medicine Work Phone: Comment on above: PATIENT WAS FASTINGP ERFORMED BY: ALEX Manleylin6370 [facility] [id number] Urobilinogen (U) [Mass/Vol] 0.2 mg/dL Normal 0.0-1.9 [facility]; [facility] Work Phone: Urobilinogen Test strip mass conc (U) 0.2 mg/dL Normal 0.0-1.9 Comprehensiv e Internal Medicine Work Phone: Comment on above: PATIENT WAS FASTINGP ERFORMED BY: ALEX LabTravis ManleyQvoedp5246 [facility] [id number] CBC WITH MANUAL DIFF ([id number]) Ordered By: Automotive Engineering Teacher on 10-02-2012 Basophils #/vol (Bld) 0.0 {x10E3/uL} Normal 0.0-0.2 [facility] Work Phone: Comment on above: PATIENT WAS FASTINGP ERFORMED BY: ALEX LabCo Yhpqvq7581 [address] Ad.IQECU [facility] [id number] Information: ADD [id number] AND DRAW FEE 99 6660 Basophils (Bld) [#/Vol] 0.0 10*3/uL Normal 0.0-0.2 [facility]; [facility] Work Phone: Basophils Auto #/vol (Bld) 0.0 {x10E3/uL} Normal 0.0-0.2 [facility] Work Phone: Basophils/100 WBC (Bld) 1 % Normal 0-3 [facility] Work Phone: Comment on above: PATIENT WAS FASTINGP ERFORMED BY: [employer] [facility] [id number] Information: ADD [id number] AND DRAW FEE 99 6660 Basophils/100 WBC Auto (Bld) 1 % Normal 0-3 [facility] Work Phone: Eosinophils #/vol (Bld) 0.2 {x10E3/uL} Normal 0.0-0.4 [facility] Work Phone: Comment on above: PATIENT WAS FASTINGP ERFORMED BY: ALEX VDP70 [facility] [id number] Information: ADD [id number] AND DRAW FEE 99 6660 Eosinophils (Bld) [#/Vol] 0.2 10*3/uL Normal 0.0-0.4 [facility]; [facility] Work Phone: Eosinophils Auto #/vol (Bld) 0.2 {x10E3/uL} Normal 0.0-0.4 [facility] Work Phone: Eosinophils/100 WBC (Bld) 5 % Normal 0-7 [facility] Work Phone: Comment on above: PATIENT WAS FASTINGP ERFORMED BY: Novan Mfwtyl6972 [facility] [id number] Information: ADD [id number] AND DRAW FEE 99 6660 Eosinophils/100 WBC Auto (Bld) 5 % Normal 0-7 [facility] Work Phone: Erythrocyte distribution width Auto Ratio (RBC) 13.8 % Normal 12.3-15.4 [facility] Work Phone: Erythrocyte distribution width Ratio (RBC) 13.8 % Normal 12.3-15.4 [facility] Work Phone: Comment on above: PATIENT WAS FASTINGP ERFORMED BY: ALEX Villegas6370 [facility] [id number] Information: ADD [id number] AND DRAW FEE 99 6660 Hematocrit Auto Volume Fraction (Bld) 36.3 % Normal 34.0-46.6 [facility] Work Phone: Hematocrit Volume Fraction (Bld) 36.3 % Normal 34.0-46.6 [facility] Work Phone: Comment on above: PATIENT WAS FASTINGP ERFORMED BY: ALEX [address] [id number] Information: ADD [id number] AND DRAW FEE 99 6660 Hemoglobin mass conc (Bld) 11.9 g/dL Normal 11.1-15.9 [facility] Work Phone: Comment on above: PATIENT WAS FASTINGP ERFORMED BY: ALEX [facility] CenterTravis ManleyWjtfqb7651 [facility] [id number] Information: ADD [id number] AND DRAW FEE 99 6660 Immature granulocytes #/vol (Bld) 0.0 {x10E3/uL} Normal 0.0-0.1 [facility] Work Phone: Comment on above: PATIENT WAS FASTINGP ERFORMED BY: ALEX LabCoChrist HospitalDtxunw1228 [facility] [id number] Information: ADD [id number] AND DRAW FEE 99 6660 Immature granulocytes (Bld) [#/Vol] 0.0 10*3/uL Normal 0.0-0.1 [facility]; [facility] Work Phone: Immature granulocytes/100 WBC (Bld) 0 % Normal 0-2 [facility] Work Phone: Comment on above: PATIENT WAS FASTINGP ERFORMED BY: ALEX LabCo[address] [id number] Information: ADD [id number] AND DRAW FEE 99 6660 Lymphocytes #/vol (Bld) 1.7 {x10E3/uL} Normal 0.7-4.5 [facility] Work Phone: Comment on above: PATIENT WAS FASTINGP ERFORMED BY: [facility]6370 [facility] [id number] Information: ADD [id number] AND DRAW FEE 99 6660 Lymphocytes (Bld) [#/Vol] 1.7 10*3/uL Normal 0.7-4.5 [facility]; [facility] Work Phone: Lymphocytes Auto #/vol (Bld) 1.7 {x10E3/uL} Normal 0.7-4.5 [facility] Work Phone: Lymphocytes/100 WBC (Bld) 41 % Normal 14-46 [facility] Work Phone: Comment on above: PATIENT WAS FASTINGP ERFORMED BY: [facility]6370 [facility] [id number] Information: ADD [id number] AND DRAW FEE 99 6660 Lymphocytes/100 WBC Auto (Bld) 41 % Normal 14-46 [facility] Work Phone: MCH Auto Entitic mass (RBC) 29.2 pg Normal 26.6-33.0 [facility] Work Phone: MCH Entitic mass (RBC) 29.2 pg Normal 26.6-33.0 [facility] Internal Medicine Work Phone: Comment on above: PATIENT WAS FASTINGP ERFORMED BY: [facility]6370 [facility] [id number] Information: ADD [id number] AND DRAW FEE 99 6660 MCHC Auto mass conc (RBC) 32.8 g/dL Normal 31.5-35.7 [facility] Work Phone: MCHC mass conc (RBC) 32.8 g/dL Normal 31.5-35.7 [facility] Work Phone: Comment on above: PATIENT WAS FASTINGP ERFORMED BY: ALEX [facility]6370 [facility] [id number] Information: ADD [id number] AND DRAW FEE 99 6660 MCV Auto Entitic volume (RBC) 89 fL Normal 79-97 [facility] Work Phone: MCV Entitic volume (RBC) 89 fL Normal 79-97 [facility] Work Phone: Comment on above: PATIENT WAS FASTINGP ERFORMED BY: ALEX [facility] Psarap8905 [facility] [id number] Information: ADD [id number] AND DRAW FEE 99 6660 Monocytes #/vol (Bld) 0.2 {x10E3/uL} Normal 0.1-1.0 [facility] Work Phone: Comment on above: PATIENT WAS FASTINGP ERFORMED BY: ALEX [facility] Kdceho5681 [facility] [id number] Information: ADD [id number] AND DRAW FEE 99 6660 Monocytes (Bld) [#/Vol] 0.2 10*3/uL Normal 0.1-1.0 [facility]; [facility] Work Phone: Monocytes Auto #/vol (Bld) 0.2 {x10E3/uL} Normal 0.1-1.0 [facility] Work Phone: Monocytes/100 WBC (Bld) 5 % Normal 4-13 [facility] Work Phone: Comment on above: PATIENT WAS FASTINGP ERFORMED BY: [facility]6370 [facility] [id number] Information: ADD [id number] AND DRAW FEE 99 6660 Monocytes/100 WBC Auto (Bld) 5 % Normal 4-13 [facility] Work Phone: Neutrophils #/vol (Bld) 2.0 {x10E3/uL} Normal 1.8-7.8 [facility] Work Phone: Comment on above: PATIENT WAS FASTINGP ERFORMED BY: ALEX [place] [address] [facility] [id number] Information: ADD [id number] AND DRAW FEE 99 6660 Neutrophils (Bld) [#/Vol] 2.0 10*3/uL Normal 1.8-7.8 [facility]; [facility] Work Phone: Neutrophils Auto #/vol (Bld) 2.0 {x10E3/uL} Normal 1.8-7.8 [facility] Work Phone: Neutrophils/100 WBC (Bld) 48 % Normal 40-74 [facility] Work Phone: Comment on above: PATIENT WAS FASTINGP ERFORMED BY: ALEX [place] [facility] [id number] Information: ADD [id number] AND DRAW FEE 99 6660 Neutrophils/100 WBC Auto (Bld) 48 % Normal 40-74 [facility] Work Phone: Platelets #/vol (Bld) 245 {x10E3/uL} Normal 140-415 [facility] Internal Medicine Work Phone: Comment on above: PATIENT WAS FASTINGP ERFORMED BY: ALEX [place] [address] [facility] [id number] Information: ADD [id number] AND DRAW FEE 99 6660 Platelets (Bld) [#/Vol] 245 10*3/uL Normal 140-415 [facility]; [facility] Internal Medicine Work Phone: Platelets Auto #/vol (Bld) 245 {x10E3/uL} Normal 140-415 [facility] Internal Medicine Work Phone: RBC #/vol (Bld) 4.07 {x10E6/uL} Normal 3.77-5.28 [facility] Work Phone: Comment on above: PATIENT WAS FASTINGP ERFORMED BY: ALEX [place] [address] [facility] [id number] Information: ADD [id number] AND DRAW FEE 99 6660 RBC (Bld) [#/Vol] 4.07 10*6/uL Normal 3.77-5.28 Compr ehensive Internal Medicine; [facility] Internal Medicine Work Phone: RBC Auto #/vol (Bld) 4.07 {x10E6/uL} Normal 3.77-5.28 [facility] Work Phone: WBC #/vol (Bld) 4.2 {x10E3/uL} Normal 4.0-10.5 [facility] Internal Medicine Work Phone: Comment on above: PATIENT WAS FASTINGP ERFORMED BY: ALEX [facility] Lfkjiz1987 [facility] [id number] Information: ADD [id number] AND DRAW FEE [id number] WBC (Bld) [#/Vol] 4.2 10*3/uL Normal 4.0-10.5 [facility] Internal Medicine; [facility] Internal Medicine Work Phone: WBC Auto #/vol (Bld) 4.2 {x10E3/uL} Normal 4.0-10.5 [facility] Internal Medicine Work Phone: METABOLIC PANEL, COMPREHENSI VE ([id number])Ordered By: Automotive Engineering Teacher on 10-02-2012 Albumin mass conc 4.4 g/dL Normal 3.6-4.8 Compreh [facility] Internal Medicine Work Phone: Comment on above: PATIENT WAS FASTINGP ERFORMED BY: ALEX SecondbrainCrownpoint Healthcare FacilityQzoypd8400 [facility] [id number] Albumin/Globulin mass ratio 1.7 {ratio} Normal 1.1-2.5 [facility] Internal Medicine Work Phone: Comment on above: PATIENT WAS FASTINGP ERFORMED BY: ALEX SecondbrainCrownpoint Healthcare FacilityYeyefu3521 [facility] [id number] ALP [Catalytic activity/Vol] 77 U/L Normal 25-165 [facility] Internal Medicine; [facility] Internal Medicine Work Phone: ALP enzyme act/vol 77 [iU]/L Normal 25-165 [facility] Internal Medicine Work Phone: Comment on above: PATIENT WAS FASTINGP ERFORMED BY: ALEX SecondbrainChrist HospitalIpkxlb7709 [facility] [id number] ALT [Catalytic activity/Vol] 28 U/L Normal 0-32 [facility]; [facility] Internal Medicine Work Phone: ALT enzyme act/vol 28 [iU]/L Normal 0-32 [facility] Internal Medicine Work Phone: Comment on above: PATIENT WAS FASTINGP ERFORMED BY: ALEX LabTravis ManleyMxkach9257 Avila RoadDublin [place] [id number] AST [Catalytic activity/Vol] 25 U/L Normal 0-40 [facility] Internal Medicine; [facility] Internal Medicine Work Phone: AST enzyme act/vol 25 [iU]/L Normal 0-40 [facility] Internal Medicine Work Phone: Comment on above: PATIENT WAS FASTINGP ERFORMED BY: ALEX Villegas6370 [address]ila RoadDublin [place] [id number] Bilirubin mass conc 0.4 mg/dL Normal 0.0-1.2 Compr [facility] Internal Medicine Work Phone: Comment on above: PATIENT WAS FASTINGP ERFORMED BY: ALEX Manleylin6370 [address] RoadDublin [place] [id number] Calcium mass conc 9.4 mg/dL Normal 8.6-10.2 Compreh [facility] Internal Medicine Work Phone: Comment on above: PATIENT WAS FASTINGP ERFORMED BY: ALEX Villegas6[address] RoadDublin [place] [id number] Chloride molar conc 107 mmol/L Normal 97-108 Compr [facility] Internal Medicine Work Phone: Comment on above: PATIENT WAS FASTINGP ERFORMED BY: ALEX [facility] Ydwcmr3545 [address] RoadDublin [place] [id number] CO2 molar conc 23 mmol/L Normal 20-32 Comprehens [facility] Internal Medicine Work Phone: Comment on above: PATIENT WAS FASTINGP ERFORMED BY: ALEX [facility] Aztyin5170 [address] RoadDublin [place] [id number] Creatinine mass conc 0.98 mg/dL Normal 0.57-1.00 Comp [facility] Internal [facility] Work Phone: Comment on above: PATIENT WAS FASTINGP ERFORMED BY: ALEX Manleylin6370 [facility] [id number] GFR/1.73 sq M predicted among blacks CKD-EPI vol rate/area (S/P/Bld) 69 mL/min/1.73 Normal [facility] Work Phone: Comment on above: PATIENT WAS FASTINGP ERFORMED BY: ALEX LabTravis ManleyQtqmwd7724 [facility] [id number] GFR/1.73 sq M predicted among non-blacks CKD-EPI vol rate/area (S/P/Bld) 60 mL/min/1.73 Normal Comprehensiv e Internal Medicine Work Phone: Comment on above: PATIENT WAS FASTINGP ERFORMED BY: ALEX Manleylin6370 [facility] [id number] Globulin Calculated mass conc (S) 2.6 g/dL Normal 1.5-4.5 [facility] Work Phone: Globulin mass conc (S) 2.6 g/dL Normal 1.5-4.5 Co mprehensive Internal Medicine Work Phone: Comment on above: PATIENT WAS FASTINGP ERFORMED BY: ALEX Manleylin6370 [facility] [id number] Glucose mass conc 90 mg/dL Normal 65-99 Compreh ensive Internal Medicine Work Phone: Comment on above: PATIENT WAS FASTINGP ERFORMED BY: ALEX Manleylin6370 [facility] [id number] Potassium molar conc 4.3 mmol/L Normal 3.5-5.2 Comp rehensive Internal Medicine Work Phone: Comment on above: PATIENT WAS FASTINGP ERFORMED BY: ALEX LabTravis ManleyNrkvts2009 [facility] [id number] Protein mass conc 7.0 g/dL Normal 6.0-8.5 Compreh ensive Internal Medicine Work Phone: Comment on above: PATIENT WAS FASTINGP ERFORMED BY: ALEX LabTravis ManleyKhkfex0377 [facility] [id number] Sodium molar conc 144 mmol/L Normal 134-144 Compreh ensive Internal Medicine Work Phone: Comment on above: PATIENT WAS FASTINGP ERFORMED BY: [facility] Fwscxq3562 [facility] [id number] Urea nitrogen mass conc 22 mg/dL Normal 8-27 [facility] Work Phone: Comment on above: PATIENT WAS FASTINGP ERFORMED BY: [facility] Mtwyzr3336 [facility] [id number] Urea nitrogen/Creatinine mass ratio 22 mg/mg Normal 11- [facility] Work Phone: Comment on above: PATIENT WAS FASTINGP ERFORMED BY: [facility] Yrpbka9039 [facility] [id number] URINE JASON CULTURE-ANGELINA COL C OUNT ([id number])Ordered By: Automotive Engineering Teacher on 03-11-2012 Bacteria identified Cx Nom (U) NG36 Normal [facility] Work Phone: Comment on above: No growth in 36 - 48 hours. PATIENT NOT FASTINGP ERFORMED BY: [employer] Efqpss2713 [facility] [id number] Information: SRC:UR [id number] Bacteria identified Cx Nom (U) Final report Normal [facility] Work Phone: Comment on above: PATIENT NOT FASTINGP ERFORMED BY: [facility] Urvvlg8946 [facility] [id number] Information: SRC:UR [id number] Urinalysis, Office ([id number])Or dered By: Chloe Kelsey on 03-11-2012 Bilirubin Ql (U) Negative Normal Comprehe nsive Internal Medicine Work Phone: Bilirubin Ql (U) Negative Normal Comprehe nsive Internal Medicine; [facility] Work Phone: Glucose Test strip (U) [Mass/Vol] Negative Normal [facility]; [facility] Work Phone: Glucose Test strip mass conc (U) Negative Normal [facility] Work Phone: Hemoglobin Ql (U) Hemolyzed Moderate Normal [facility] Work Phone: Hemoglobin Test strip Ql (U) Hemolyzed Moderate Normal [facility] Work Phone: Ketones Ql (U) Negative Normal Comprehens [facility] Internal Medicine Work Phone: Ketones Ql (U) Negative Normal Comprehens [facility] Internal [facility]; [facility] Work Phone: Leukocyte esterase Test strip Ql (U) Negative Normal [facility] Work Phone: Leukocyte esterase Test strip Ql (U) Negative Normal [facility]; [facility] Work Phone: Nitrite Ql (U) Negative Normal Comprehens [facility] Internal Medicine Work Phone: Nitrite Ql (U) Negative Normal Comprehens [facility]; [facility] Work Phone: Nitrite Test strip Ql (U) Negative Normal [facility] Work Phone: pH (U) 6.5 [pH] Normal [facility] Work Phone: pH Test strip (U) 6.5 [pH] Normal Compreh ensive Internal Medicine Work Phone: Protein Ql (U) Negative Normal Comprehens [facility] Internal Medicine Work Phone: Protein Ql (U) Negative Normal Comprehens [facility] Internal [facility]; [facility] Work Phone: Protein Test strip Ql (U) Negative Normal [facility] Work Phone: Specific gravity Relative Density (U) 1.015 1 Normal Comprehensi ve Internal Medicine Work Phone: Urobilinogen mass/time (24H U) Normal Normal [facility] Work Phone: Urinalysis, Office ([id number])Or dered By: Melita Cisse on 02-07-2012 Bilirubin Ql (U) Negative Normal Comprehe nsive Internal Medicine Work Phone: Bilirubin Ql (U) Negative Normal Comprehe nsive Internal Medicine; [facility] Work Phone: Glucose Test strip (U) [Mass/Vol] Negative Normal [facility]; [facility] Work Phone: Glucose Test strip mass conc (U) Negative Normal [facility] Work Phone: Ketones Ql (U) Negative Normal Comprehens [facility] Internal Medicine Work Phone: Ketones Ql (U) Negative Normal Comprehens [facility]; [facility] Work Phone: Leukocyte esterase Test strip Ql (U) Negative Normal [facility] Work Phone: Leukocyte esterase Test strip Ql (U) Negative Normal [facility]; [facility] Work Phone: Nitrite Ql (U) Negative Normal Comprehens [facility] Internal Medicine Work Phone: Nitrite Ql (U) Negative Normal Comprehens [facility]; [facility] Work Phone: Nitrite Test strip Ql (U) Negative Normal [facility] Work Phone: pH (U) 7.0 [pH] Normal [facility] Work Phone: pH Test strip (U) 7.0 [pH] Normal Compreh ensive Internal Medicine Work Phone: Protein Ql (U) Negative Normal Comprehens [facility] Internal Medicine Work Phone: Protein Ql (U) Negative Normal Comprehens [facility]; [facility] Work Phone: Protein Test strip Ql (U) Negative Normal [facility] Work Phone: Specific gravity Relative Density (U) 1.020 1 Normal Comprehensi ve Internal Medicine Work Phone: CBC WITH MANUAL DIFF ([id number]) Ordered By: Automotive Engineering Teacher on 01-17-2012 Basophils #/vol (Bld) 0.0 {x10E3/uL} Normal 0.0-0.2 [facility] Work Phone: Comment on above: PATIENT WAS FASTINGP ERFORMED BY: [facility] Nmsdzp5952 [facility] [id number] Information: [id number] Basophils (Bld) [#/Vol] 0.0 10*3/uL Normal 0.0-0.2 [facility]; [facility] Work Phone: Basophils Auto #/vol (Bld) 0.0 {x10E3/uL} Normal 0.0-0.2 [facility] Work Phone: Basophils/100 WBC (Bld) 1 % Normal 0-3 [facility] Work Phone: Comment on above: PATIENT WAS FASTINGP ERFORMED BY: [employer] Xacvdg6135 [facility] [id number] Information: [id number] Basophils/100 WBC Auto (Bld) 1 % Normal 0-3 [facility] Work Phone: Eosinophils #/vol (Bld) 0.1 {x10E3/uL} Normal 0.0-0.4 [facility] Work Phone: Comment on above: PATIENT WAS FASTINGP ERFORMED BY: [employer] Yekvuk3102 [facility] [id number] Information: [id number] Eosinophils (Bld) [#/Vol] 0.1 10*3/uL Normal 0.0-0.4 [facility]; [facility] Work Phone: Eosinophils Auto #/vol (Bld) 0.1 {x10E3/uL} Normal 0.0-0.4 [facility] Work Phone: Eosinophils/100 WBC (Bld) 1 % Normal 0-7 [facility] Work Phone: Comment on above: PATIENT WAS FASTINGP ERFORMED BY: SecondbrainChrist HospitalUgxbsb3409 [facility] [id number] Information: [id number] Eosinophils/100 WBC Auto (Bld) 1 % Normal 0-7 [facility] Work Phone: Erythrocyte distribution width Auto Ratio (RBC) 14.0 % Normal 12.3-15.4 [facility] Work Phone: Erythrocyte distribution width Ratio (RBC) 14.0 % Normal 12.3-15.4 [facility] Work Phone: Comment on above: PATIENT WAS FASTINGP ERFORMED BY: [facility]6370 [facility] [id number] Information: [id number] Hematocrit Auto Volume Fraction (Bld) 34.8 % Normal 34.0-46.6 [facility] Work Phone: Hematocrit Volume Fraction (Bld) 34.8 % Normal 34.0-46.6 [facility] Work Phone: Comment on above: PATIENT WAS FASTINGP ERFORMED BY: [address] [id number] Information: [id number] Hemoglobin mass conc (Bld) 11.4 g/dL Normal 11.1-15.9 [facility] Work Phone: Comment on above: PATIENT WAS FASTINGP ERFORMED BY: [address] [id number] Information: [id number] Immature granulocytes #/vol (Bld) 0.0 {x10E3/uL} Normal 0.0-0.1 [facility] Work Phone: Comment on above: PATIENT WAS FASTINGP ERFORMED BY: [place] [address] [facility] [id number] Information: [id number] Immature granulocytes (Bld) [#/Vol] 0.0 10*3/uL Normal 0.0-0.1 [facility]; [facility] Work Phone: Immature granulocytes/100 WBC (Bld) 0 % Normal 0-2 [facility] Work Phone: Comment on above: PATIENT WAS FASTINGP ERFORMED BY: [facility]6370 [facility] [id number] Information: [id number] Lymphocytes #/vol (Bld) 2.1 {x10E3/uL} Normal 0.7-4.5 [facility] Work Phone: Comment on above: PATIENT WAS FASTINGP ERFORMED BY: [place] [address] [facility] [id number] Information: [id number] Lymphocytes (Bld) [#/Vol] 2.1 10*3/uL Normal 0.7-4.5 [facility]; [facility] Work Phone: Lymphocytes Auto #/vol (Bld) 2.1 {x10E3/uL} Normal 0.7-4.5 [facility] Work Phone: Lymphocytes/100 WBC (Bld) 44 % Normal 14-46 [facility] Work Phone: Comment on above: PATIENT WAS FASTINGP ERFORMED BY: [address] [id number] Information: [id number] Lymphocytes/100 WBC Auto (Bld) 44 % Normal 14-46 [facility] Work Phone: MCH Auto Entitic mass (RBC) 29.1 pg Normal 26.6-33.0 [facility] Internal Medicine Work Phone: MCH Entitic mass (RBC) 29.1 pg Normal 26.6-33.0 [facility] Internal Medicine Work Phone: Comment on above: PATIENT WAS FASTINGP ERFORMED BY: [address] [id number] Information: [id number] MCHC Auto mass conc (RBC) 32.8 g/dL Normal 31.5-35.7 [facility] Internal Medicine Work Phone: MCHC mass conc (RBC) 32.8 g/dL Normal 31.5-35.7 [facility] Work Phone: Comment on above: PATIENT WAS FASTINGP ERFORMED BY: [address] [id number] Information: [id number] MCV Auto Entitic volume (RBC) 89 fL Normal 79-97 [facility] Work Phone: MCV Entitic volume (RBC) 89 fL Normal 79-97 [facility] Work Phone: Comment on above: PATIENT WAS FASTINGP ERFORMED BY: ALEX Villegas6370 [facility] [id number] Information: [id number] Monocytes #/vol (Bld) 0.2 {x10E3/uL} Normal 0.1-1.0 [facility] Work Phone: Comment on above: PATIENT WAS FASTINGP ERFORMED BY: ALEX [place] [address] [facility] [id number] Information: [id number] Monocytes (Bld) [#/Vol] 0.2 10*3/uL Normal 0.1-1.0 [facility]; [facility] Work Phone: Monocytes Auto #/vol (Bld) 0.2 {x10E3/uL} Normal 0.1-1.0 [facility] Work Phone: Monocytes/100 WBC (Bld) 5 % Normal 10-25 [facility] Work Phone: Comment on above: PATIENT WAS FASTINGP ERFORMED BY: ALEX Manleylin6370 [facility] [id number] Information: [id number] Monocytes/100 WBC Auto (Bld) 5 % Normal - [facility] Work Phone: Neutrophils #/vol (Bld) 2.4 {x10E3/uL} Normal 1.8-7.8 [facility] Work Phone: Comment on above: PATIENT WAS FASTINGP ERFORMED BY: ALEX [facility]6370 [facility] [id number] Information: [id number] Neutrophils (Bld) [#/Vol] 2.4 10*3/uL Normal 1.8-7.8 [facility]; [facility] Work Phone: Neutrophils Auto #/vol (Bld) 2.4 {x10E3/uL} Normal 1.8-7.8 [facility] Work Phone: Neutrophils/100 WBC (Bld) 49 % Normal 40-74 [facility] Work Phone: Comment on above: PATIENT WAS FASTINGP ERFORMED BY: [place] [address] [facility] [id number] Information: [id number] Neutrophils/100 WBC Auto (Bld) 49 % Normal 40-74 [facility] Work Phone: Platelets #/vol (Bld) 214 {x10E3/uL} Normal 140-415 [facility] Work Phone: Comment on above: PATIENT WAS FASTINGP ERFORMED BY: [place] [address] [facility] [id number] Information: [id number] Platelets (Bld) [#/Vol] 214 10*3/uL Normal 140-415 [facility]; [facility] Work Phone: Platelets Auto #/vol (Bld) 214 {x10E3/uL} Normal 140-415 [facility] Work Phone: RBC #/vol (Bld) 3.92 {x10E6/uL} Normal 3.77-5.28 [facility] Work Phone: Comment on above: PATIENT WAS FASTINGP ERFORMED BY: [place] [address] [facility] [id number] Information: [id number] RBC (Bld) [#/Vol] 3.92 10*6/uL Normal 3.77-5.28 Compr ensive Internal Medicine; [facility] Work Phone: RBC Auto #/vol (Bld) 3.92 {x10E6/uL} Normal 3.77-5.28 [facility] Work Phone: WBC #/vol (Bld) 4.9 {x10E3/uL} Normal 4.0-10.5 Compr ehensive Internal Medicine Work Phone: Comment on above: PATIENT WAS FASTINGP ERFORMED BY: [facility] Thmudf[address] [place] [id number] Information: [id number] WBC (Bld) [#/Vol] 4.9 10*3/uL Normal 4.0-10.5 [facility] Internal Medicine; [facility] Work Phone: WBC Auto #/vol (Bld) 4.9 {x10E3/uL} Normal 4.0-10.5 [facility] Work Phone: CHEST, PA AND LATERALOrdered By: Automotive Engineering Teacher on 01-17-2012 CHEST, PA AND LATERAL See Note Normal Com prehensive Internal Medicine Work Phone: Comment on above: PROCEDURE: X-RAY PATSY REASON FOR EXAM: Female, 66 years old. Chronic cough. TECHNIQUE: PA and lateral views of the chest. COMPARISON: None. FINDINGS: The lungs are expanded. There is evidence of calcified old granulomatousdisease. There is no demonstrated pleural abnormality. Normal heart and pericardium. Normal mediastinum and anika. Normal visualized pulmonary arteries.Thereis atherosclerotic tortuosity of the aortic arch and descending thoracicaorta. There are diffuse degenerative changes of the visualized thoracic spine.Normal visualized ribs, clavicles, and shoulders. There is no demonstrated abnormality of the visualized soft tissuestructures of the upper abdomen. IMPRESSION:No acute abnormality is seen. Signed:Emory Sheppard M.D.January 17, 2012 at 12:26:03 PM [id number] Signed GP/GP If you are the referring physician and would like to consult with theradiologist who provided this interpretation, please contact Florentin Flowers at [phone]. If this radiologist is unavailable, youwill be directed to another radiologist to assist. If you are a patient with a question regarding this report, pleasecontactyour referring physician directly. Professional Interpretation Provided By: Mumboe, Phone , Dictated on 01/17/1212 by PedTao gibson MDribed on 01/17/122149 by ITS IMPORTSign by Emory Sheppard MD on 01/17/122150 Sign by: Emory Sheppard MD LIPID PANEL ([id number])Ordered B y: Automotive Engineering Teacher on 01-17-2012 Cholesterol in HDL mass conc 96 mg/dL Normal [facility] Work Phone: Comment on above: According to ATP-III Guidelines, HDL-C >59 mg/dL is considered anegative risk factor for CHD. PATIENT WAS FASTINGP ERFORMED BY: CB [facility] Vdqdfh9224 Avila RoadDublin [place] [id number] Cholesterol in LDL mass conc 92 mg/dL Normal 0-99 [facility] Work Phone: Comment on above: PATIENT WAS FASTINGP ERFORMED BY: CB [facility] Svacto0127 [address] RoadDublin [place] [id number] Cholesterol in LDL/Cholesterol in HDL mass ratio 1.0 {ratio_units} Normal 0.0-3.2 [facility] Work Phone: Comment on above: PATIENT WAS FASTINGP ERFORMED BY: CB [facility] Aypmfh1979 Avila RoadDublin [place] [id number] Cholesterol in VLDL mass conc 11 mg/dL Normal 5-40 [facility] Work Phone: Comment on above: PATIENT WAS FASTINGP ERFORMED BY: CB [facility] Iutfci8556 [address] RoadDublin [place] [id number] Cholesterol mass conc 199 mg/dL Normal 100-199 Com prehensive Internal Medicine Work Phone: Comment on above: PATIENT WAS FASTINGP ERFORMED BY: CB [facility] Kzwrst0133 [address] RoadDublin [place] [id number] Triglyceride mass conc 55 mg/dL Normal 0-149 [facility] careehensive Internal Medicine Work Phone: Comment on above: PATIENT WAS FASTINGP ERFORMED BY: CB [facility] Goqqmd8233 [address] RoadDublin [place] [id number] METABOLIC PANEL, COMPREHENSI VE ([id number])Ordered By: Automotive Engineering Teacher on 01-17-2012 Albumin mass conc 4.3 g/dL Normal 3.6-4.8 [facility] Internal Medicine Work Phone: Comment on above: PATIENT WAS FASTINGP ERFORMED BY: ALEX LabTravis ManleySxdpcy3193 [address] Roadblin [place] [id number] Albumin/Globulin mass ratio 1.7 {ratio} Normal 1.1-2.5 [facility] Internal Medicine Work Phone: Comment on above: PATIENT WAS FASTINGP ERFORMED BY: ALEX LabCodaniella ManleyRwtwyf7692 Avila RoadECU Health [facility] [id number] ALP [Catalytic activity/Vol] 74 U/L Normal 25-165 [facility]; [facility] Internal Medicine Work Phone: ALP enzyme act/vol 74 [iU]/L Normal 25-165 [facility] Internal Medicine Work Phone: Comment on above: PATIENT WAS FASTINGP ERFORMED BY: ALEX Manleylin[address] [facility] [id number] ALT [Catalytic activity/Vol] 12 U/L Normal 0-40 [facility]; [facility] Internal Medicine Work Phone: ALT enzyme act/vol 12 [iU]/L Normal 0-40 [facility] Internal Medicine Work Phone: Comment on above: PATIENT WAS FASTINGP ERFORMED BY: ALEX LabTravis ManleyQqosuc65[address] [facility] [id number] AST [Catalytic activity/Vol] 19 U/L Normal 0-40 [facility]; [facility] Internal Medicine Work Phone: AST enzyme act/vol 19 [iU]/L Normal 0-40 [facility] Internal Medicine Work Phone: Comment on above: PATIENT WAS FASTINGP ERFORMED BY: ALEX LabTravis ManleyVibsao[address] [facility] [place] [id number] Bilirubin mass conc 0.3 mg/dL Normal 0.0-1.2 [facility] Internal Medicine Work Phone: Comment on above: PATIENT WAS FASTINGP ERFORMED BY: ALEX LabTravis ManleyTpsgfu50[address] [facility]in [place] [id number] Calcium mass conc 9.4 mg/dL Normal 8.6-10.2 Compreh ensive Internal Medicine Work Phone: Comment on above: PATIENT WAS FASTINGP ERFORMED BY: ALEX [facility] Wibvhh[address] [facility] [id number] Chloride molar conc 106 mmol/L Normal 97-108 Compr ehensive Internal Medicine Work Phone: Comment on above: PATIENT WAS FASTINGP ERFORMED BY: [facility] Felpke[address] [facility] [id number] CO2 molar conc 24 mmol/L Normal 20-32 Comprehens shanta Internal Medicine Work Phone: Comment on above: PATIENT WAS FASTINGP ERFORMED BY: [facility] Xrgosu3027 [facility] [id number] Creatinine mass conc 0.97 mg/dL Normal 0.57-1.00 Comp rehensive Internal Medicine Work Phone: Comment on above: PATIENT WAS FASTINGP ERFORMED BY: LabSullivan [place] [facility] [id number] [facility] [id number] GFR/1.73 sq M predicted among blacks CKD-EPI vol rate/area (S/P/Bld) 70 mL/min/1.73 Normal [facility] Work Phone: Comment on above: PATIENT WAS FASTINGP ERFORMED BY: [facility] [id number] [facility] [id number] GFR/1.73 sq M predicted among non-blacks CKD-EPI vol rate/area (S/P/Bld) 61 mL/min/1.73 Normal Com[facility] e [facility] Work Phone: Comment on above: PATIENT WAS FASTINGP ERFORMED BY: ALEX [facility] [id number] [facility] [id number] Globulin Calculated mass conc (S) 2.6 g/dL Normal 1.5-4.5 [facility] Work Phone: Globulin mass conc (S) 2.6 g/dL Normal 1.5-4.5 Co mprehensive [facility] Work Phone: Comment on above: PATIENT WAS FASTINGP ERFORMED BY: ALEX Villegas6370 [facility] [id number] Glucose mass conc 89 mg/dL Normal 65-99 Compreh ensive Internal Medicine Work Phone: Comment on above: PATIENT WAS FASTINGP ERFORMED BY: ALEX Villegas6370 [facility] [id number] Potassium molar conc 4.4 mmol/L Normal 3.5-5.2 Comp rehensive Internal Medicine Work Phone: Comment on above: PATIENT WAS FASTINGP ERFORMED BY: ALEX Villegas6370 [facility] [id number] Protein mass conc 6.9 g/dL Normal 6.0-8.5 Compreh ensive [facility] Work Phone: Comment on above: PATIENT WAS FASTINGP ERFORMED BY: ALEX Manleylin6370 [facility] [id number] Sodium molar conc 142 mmol/L Normal 134-144 Compreh ensive [facility] Medicine Work Phone: Comment on above: PATIENT WAS FASTINGP ERFORMED BY: ALEX Manleylin6370 [facility] [id number] Urea nitrogen mass conc 28 mg/dL Abnormal 8-27 [facility] Work Phone: Comment on above: PATIENT WAS FASTINGP ERFORMED BY: ALEX Manleylin6370 [facility] [id number] Urea nitrogen/Creatinine mass ratio 29 mg/mg Abnormal 11-26 [facility] Work Phone: Comment on above: PATIENT WAS FASTINGP ERFORMED BY: ALEX Manleylin6370 [facility] [id number] Microscopic ExaminationOrder ed By: Automotive Engineering Teacher on 01-17-2012 Bacteria LM.HPF #/area (Urine sed) Few Normal [facility] Work Phone: Comment on above: PATIENT WAS FASTINGP ERFORMED BY: CB [facility] [id number] [address]Dublin [place] [id number] Epithelial cells LM.HPF #/area (Urine sed) 0-10 Normal 0 - 10 [facility] Work Phone: Comment on above: PATIENT WAS FASTINGP ERFORMED BY: ALEX [facility] [id number] [address] RoadDublin [place] [id number] Mucus LM Ql (Urine sed) Present Normal [facility] Work Phone: Mucus Ql (Urine sed) Present Normal Comp rehensive Internal Medicine Work Phone: Comment on above: PATIENT WAS FASTINGP ERFORMED BY: ALEX [facility] [id number] [address] RoadDublin [place] [id number] RBC LM.HPF #/area (Urine sed) 0-3 Normal 0 - 3 [facility] Work Phone: Comment on above: PATIENT WAS FASTINGP ERFORMED BY: ALEX [facility] [id number] [facility] [place] [id number] WBC LM.HPF #/area (Urine sed) 6-10 Abnormal 0 - 5 [facility] Work Phone: Comment on above: PATIENT WAS FASTINGP ERFORMED BY: ALEX [facility] [id number] [facility] [place] [id number] URINALYSIS, W/ MICRO ([id number]) Ordered By: Automotive Engineering Teacher on 01-17-2012 Appearance Nom (U) Clear Normal Compre hensive [facility] Work Phone: Comment on above: PATIENT WAS FASTINGP ERFORMED BY: ALEX [facility] [id number] [place] [id number] Bilirubin Ql (U) Negative Normal Comprehe nsive Internal Medicine Work Phone: Comment on above: PATIENT WAS FASTINGP ERFORMED BY: ALEX [facility] [id number] [address] RoadDublin [place] [id number] Bilirubin Ql (U) Negative Normal Comprehe nsive Internal Medicine; [facility] Work Phone: Color Nom (U) Yellow Normal Comprehensi ve Internal Medicine Work Phone: Comment on above: PATIENT WAS FASTINGP ERFORMED BY: ALEX [facility] [id number] [address]Dublin [place] [id number] Glucose Ql (U) Negative Normal Comprehens shanta [facility] Work Phone: Comment on above: PATIENT WAS FASTINGP ERFORMED BY: ALEX [facility] [id number] [address] RoadD[address] [place] [id number] Glucose Ql (U) Negative Normal Comprehens sh[facility]; [facility] Work Phone: Hemoglobin Ql (U) 2+ Abnormal Compreh ensive [facility] Medicine Work Phone: Comment on above: PATIENT WAS FASTINGP ERFORMED BY: ALEX [facility] [id number] [address] RoadDublin [place] [id number] Hemoglobin Test strip Ql (U) 2+ Abnormal [facility] Work Phone: Ketones Ql (U) Negative Normal Comprehens [facility] Work Phone: Comment on above: PATIENT WAS FASTINGP ERFORMED BY: ALEX [facility] [id number] [address] [place] [id number] Ketones Ql (U) Negative Normal Comprehens [facility]; [facility] Work Phone: Leukocyte esterase Test strip Ql (U) 2+ Abnormal [facility] Work Phone: Comment on above: PATIENT WAS FASTINGP ERFORMED BY: ALEX [facility] [id number] [address] [place] [id number] Microscopic observation LM Nom (Urine sed) See below: Normal [facility] Work Phone: Comment on above: PATIENT WAS FASTINGP ERFORMED BY: ALEX [facility] [id number] [address] RoadDublin [place] [id number] Nitrite Ql (U) Negative Normal Comprehens [facility] Work Phone: Comment on above: PATIENT WAS FASTINGP ERFORMED BY: ALEX [facility] [id number] [address] [place] [id number] Nitrite Ql (U) Negative Normal Comprehens [facility]; [facility] Work Phone: Nitrite Test strip Ql (U) Negative Normal [facility] Work Phone: pH (U) 6.0 [pH] Normal 5.0-7.5 [facility] Work Phone: Comment on above: PATIENT WAS FASTINGP ERFORMED BY: ALEX [employer] [id number] [place] [id number] pH Test strip (U) 6.0 [pH] Normal 5.0-7.5 Compreh ensive Internal Medicine Work Phone: Protein Ql (U) Negative Normal Comprehens [facility] Work Phone: Comment on above: PATIENT WAS FASTINGP ERFORMED BY: ALEX [employer] [id number] [facility] [id number] Protein Ql (U) Negative Normal Comprehens [facility]; [facility] Work Phone: Protein Test strip Ql (U) Negative Normal [facility] Work Phone: Specific gravity Relative Density (U) 1.015 1 Normal 1.005-1.030 Comprehensi ve Internal Medicine Work Phone: Comment on above: PATIENT WAS FASTINGP ERFORMED BY: ALEX [employer] [id number] [facility]ECU [facility] [id number] Urobilinogen (U) [Mass/Vol] 0.2 mg/dL Normal 0.0-1.9 [facility]; [facility] Work Phone: Urobilinogen Test strip mass conc (U) 0.2 mg/dL Normal 0.0-1.9 Comprehensiv e [facility] Work Phone: Comment on above: PATIENT WAS FASTINGP ERFORMED BY: ALEX [employer] [id number] [facility] [place] [id number] Bordetella Pertussis PCR ([id number])Ordered By: Automotive Engineering Teacher on 01-15-2012 B. parapertussis DNA MITESH+probe Ql (Unsp spec) Negative Normal [facility] Work Phone: Comment on above: .This test was devel oped and its performance characteristics determinedby [facility]. It has not been cleared or approved by theU.S. Food and Drug Administration. The FDA has determined that suchclearance or approval is not necessary. This test is used for clinicalpurposes. It should not be regarded as investigational or research. PATIENT NOT FASTINGP ERFORMED BY: [employer] [id number] [facility] [id number] Information: SRC:NOS [id number] B. parapertussis DNA MITEHS+probe Ql (Unsp spec) Negative Normal [facility]; [facility] Work Phone: B. pertussis DNA MITESH+probe Ql (Unsp spec) Negative Normal [facility] Work Phone: Comment on above: PATIENT NOT FASTINGP ERFORMED BY: [place] [facility] [id number] [facility] [id number] Information: SRC:NOS [id number] B. pertussis DNA MITESH+probe Ql (Unsp spec) Negative Normal [facility]; [facility] Work Phone: Vital Signs Date Time Vital Sign Value Performing Clinician Facility 11-27-2024 14:02-0400 Body height 172.[address] Bronson Bynum MD Work Phone: [facility] 11-27-2024 14:02-0400 Body mass index (BMI) [Ratio] 27.8 kg/m2 Dr. Bronson Bynum MD Work Phone: [facility] 11-27-2024 14:02-0400 Body temperature 97.1 [degF] Dr. Bronson Bynum MD Work Phone: [facility] 11-27-2024 14:02-0400 Body weight 83.[address] Bronson Bynum MD Work Phone: [facility] 11-27-2024 14:02-0400 Diastolic blood pressure 64 mm[Hg] Dr. Bronson Bynum MD Work Phone: [facility] 11-27-2024 14:02-0400 Heart rate 68 /min Dr. Bronson Bynum MD Work Phone: [facility] 11-27-2024 14:02-0400 Respiratory rate 16 /min Dr. Bronson Bynum MD Work Phone: [facility] 11-27-2024 14:02-0400 SaO2% (BldA) [Mass fraction] 94 % Dr. Bronson Bynum MD Work Phone: [facility] 11-27-2024 14:02-0400 Systolic blood pressure 122 mm[Hg] Dr. Bronson Bynum MD Work Phone: [facility] 09-16-2024 13:33-0500 Body mass index (BMI) [Ratio] 27.8 kg/m2 Dr. Bronson Bynum MD Work Phone: [facility] 09-16-2024 13:33-0500 Body temperature 96.7 [degF] Dr. Bronson Bynum MD Work Phone: [facility] 09-16-2024 13:33-0500 Body weight [address] Bronson Bynum MD Work Phone: [facility] 09-16-2024 13:33-0500 Diastolic blood pressure 64 mm[Hg] Dr. Bronson Bynum MD Work Phone: [facility] 09-16-2024 13:33-0500 Heart rate 70 /min Dr. Bronson Bynum MD Work Phone: [facility] 09-16-2024 13:33-0500 Respiratory rate 14 /min Dr. Bronson Bynum MD Work Phone: [facility] 09-16-2024 13:33-0500 SaO2% (BldA) [Mass fraction] 97 % Dr. Bronson Bynum MD Work Phone: [facility] 09-16-2024 13:33-0500 Systolic blood pressure 122 mm[Hg] Dr. Bronson Bynum MD Work Phone: [facility] 06-05-2024 10:04-0500 Diastolic Blood Pressure Non-Invasive 64 mm[Hg] DR TYLER JOHNSON MD [facility] 06-05-2024 10:04-0500 Heart rate 59 /min DR TYLER JOHNSON MD [facility] 06-05-2024 10:04-0500 Respiratory rate 14 /min DR TYLER JOHNSON MD [facility] 06-05-2024 10:04-0500 Systolic Blood Pressure Non-Invasive 136 mm[Hg] DR TYLER JOHNSON MD [facility] 06-05-2024 09:50-0500 Body temperature 97.52 [degF] DR TYLER JOHNSON MD [facility] 06-05-2024 09:50-0500 Diastolic Blood Pressure Non-Invasive 70 mm[Hg] DR TYLER JOHNSON MD [facility] 06-05-2024 09:50-0500 Heart rate 60 /min DR TYLER JOHNSON MD [facility] 06-05-2024 09:50-0500 Respiratory rate 17 /min DR TYLER JOHNSON MD [facility] 06-05-2024 09:50-0500 Respiratory Rate - Anes 0 br/min DR TYLER JOHNSON MD [facility] 06-05-2024 09:50-0500 Systolic Blood Pressure Non-Invasive 145 mm[Hg] DR TYLER JOHNSON MD [facility] 06-05-2024 09:45-0500 Diastolic Blood Pressure Non-Invasive 81 mm[Hg] DR TYLER JOHNSON MD [facility] 06-05-2024 09:45-0500 Heart rate 56 /min DR TYLER JOHNSON MD [facility] 06-05-2024 09:45-0500 Respiratory Rate - Anes 14 br/min DR TYLER JOHNSON MD [facility] 06-05-2024 09:45-0500 Systolic Blood Pressure Non-Invasive 123 mm[Hg] DR TYLER JOHNSON MD [facility] 06-05-2024 09:40-0500 Respiratory Rate - Anes 0 br/min DR TYLER JOHNSON MD [facility] 06-05-2024 08:16-0500 Body height 175.[address] TYLER JOHNSON MD [facility] 06-05-2024 08:16-0500 Body temperature 97.52 [degF] DR TYLER JOHNSON MD [facility] 06-05-2024 08:16-0500 Body weight [address] TYLER JOHNSON MD [facility] 06-05-2024 08:16-0500 Body weight 26.7 kg/m2 DR TYLER JOHNSON MD [facility] 06-05-2024 08:16-0500 Heart rate 61 /min DR TYLER JOHNSON MD [facility] 06-05-2024 08:16-0500 Respiratory rate 16 /min DR TYLER JOHNSON MD [facility] 03-29-2024 15:50-0400 Diastolic Blood Pressure Non-Invasive 67 mm[Hg] PAT DELGADILLO MD [facility] 03-29-2024 15:50-0400 Heart rate 60 /min PAT DELGADILLO MD [facility] 03-29-2024 15:50-0400 Respiratory rate 16 /min PAT DELGADILLO MD [facility] 03-29-2024 15:50-0400 Systolic Blood Pressure Non-Invasive 143 mm[Hg] PAT DELGADILLO MD [facility] 03-29-2024 14:51-0400 Diastolic Blood Pressure Non-Invasive 73 mm[Hg] PAT DELGADILLO MD [facility] 03-29-2024 14:51-0400 Heart rate 54 /min PAT DELGADILLO MD [facility] 03-29-2024 14:51-0400 Reason For Taking VItal Signs PAT DELGADILLO MD [facility] 03-29-2024 14:51-0400 Respiratory rate 16 /min PAT DELGADILLO MD [facility] 03-29-2024 14:51-0400 Systolic Blood Pressure Non-Invasive 146 mm[Hg] PAT DELGADILLO MD [facility] 03-29-2024 12:59-0400 Body temperature 98.24 [degF] PAT DELGADILLO MD [facility] 03-29-2024 12:59-0400 Body weight 82.1 kg PAT DELGADILLO MD [facility] 03-29-2024 12:59-0400 Diastolic Blood Pressure Non-Invasive 68 mm[Hg] PAT DELGADILLO MD [facility] 03-29-2024 12:59-0400 Heart rate 70 /min PAT DELGADILLO MD [facility] 03-29-2024 12:59-0400 Respiratory rate 18 /min PAT DELGADILLO MD [facility] 03-29-2024 12:59-0400 Systolic Blood Pressure Non-Invasive 164 mm[Hg] PAT DELGADILLO MD [facility] 01-09-2024 14:32-0400 Diastolic Blood Pressure Non-Invasive 59 mm[Hg] DR CESAR BELLA MD [facility] 01-09-2024 14:32-0400 Heart rate 69 /min DR CESAR BELLA MD [facility] 01-09-2024 14:32-0400 Mean blood pressure 79 mm[Hg] DR CESAR BELLA MD [facility] 01-09-2024 14:32-0400 Respiratory rate 16 /min DR CESAR BELLA MD [facility] 01-09-2024 14:32-0400 Systolic Blood Pressure Non-Invasive 127 mm[Hg] DR CESAR BELLA MD [facility] 01-09-2024 12:18-0400 Body temperature 99.14 [degF] DR CESAR BELLA MD [facility] 01-09-2024 12:18-0400 Diastolic Blood Pressure Non-Invasive 75 mm[Hg] DR CESAR BELLA MD [facility] 01-09-2024 12:18-0400 Heart rate 89 /min DR CESAR BELLA MD [facility] 01-09-2024 12:18-0400 Respiratory rate 16 /min DR CESAR BELLA MD [facility] 01-09-2024 12:18-0400 Systolic Blood Pressure Non-Invasive 134 mm[Hg] DR CESAR BELLA MD [facility] 08-28-2023 13:42-0500 Body height 172.[address] Bronson Bynum Work Phone: [facility] 08-28-2023 13:42-0500 Body mass index (BMI) [Ratio] 27.8 kg/m2 Dr. Bronson Bynum Work Phone: [facility] 08-28-2023 13:42-0500 Body temperature 97.1 [degF] Dr. Bronson Bynum Work Phone: [facility] 08-28-2023 13:42-0500 Body weight [address] Bronson Bynum Work Phone: [facility] 08-28-2023 13:42-0500 Diastolic blood pressure 72 mm[Hg] Dr. Bronson Bynum Work Phone: [facility] 08-28-2023 13:42-0500 Heart rate 62 /min Dr. Bronson Bynum Work Phone: [facility] 08-28-2023 13:42-0500 Respiratory rate 16 /min Dr. Bronson Bynum Work Phone: [facility] 08-28-2023 13:42-0500 SaO2% (BldA) [Mass fraction] 94 % Dr. Bronson Bynum Work Phone: [facility] 08-28-2023 13:42-0500 Systolic blood pressure 110 mm[Hg] Dr. Bronson Bynum Work Phone: [facility] 08-14-2023 13:02-0500 Body mass index (BMI) [Ratio] 27.6 kg/m2 Dr. Bronson Bynum Work Phone: [facility] 08-14-2023 13:02-0500 Body temperature 98.4 [degF] Dr. Bronson Bynum Work Phone: [facility] 08-14-2023 13:02-0500 Body weight 82.[address] Bronson Bynum Work Phone: [facility] 08-14-2023 13:02-0500 Diastolic blood pressure 68 mm[Hg] Dr. Bronson Bynum Work Phone: [facility] 08-14-2023 13:02-0500 Heart rate 72 /min Dr. Bronson Bynum Work Phone: [facility] 08-14-2023 13:02-0500 Respiratory rate 16 /min Dr. Bronson Bynum Work Phone: [facility] 08-14-2023 13:02-0500 SaO2% (BldA) [Mass fraction] 94 % Dr. Bronson Bynum Work Phone: [facility] 08-14-2023 13:02-0500 Systolic blood pressure 112 mm[Hg] Dr. Bronson Bynum Work Phone: [facility] 03-28-2023 14:34-0400 Body height 172.[address] Bronson Bynum Work Phone: [facility] 03-28-2023 14:34-0400 Body mass index (BMI) [Ratio] 28.4 kg/m2 Dr. Bronson Bynum Work Phone: [facility] 03-28-2023 14:34-0400 Body temperature 96.7 [degF] Dr. Bronson Bynum Work Phone: [facility] 03-28-2023 14:34-0400 Body weight 84.[address] Bronson Bynum Work Phone: [facility] 03-28-2023 14:34-0400 Diastolic blood pressure 76 mm[Hg] Dr. Bronson Bynum Work Phone: [facility] 03-28-2023 14:34-0400 Heart rate 71 /min Dr. Bronson Bynum Work Phone: [facility] 03-28-2023 14:34-0400 Respiratory rate 18 /min Dr. Bronson Bynum Work Phone: [facility] 03-28-2023 14:34-0400 SaO2% (BldA) [Mass fraction] 93 % Dr. Bronson Bynum Work Phone: [facility] 03-28-2023 14:34-0400 Systolic blood pressure 136 mm[Hg] Dr. Bronson Bynum Work Phone: [facility] 08-27-2022 12:59-0500 Body height 172.[address] Bronson Bynum Work Phone: [facility] 08-27-2022 12:59-0500 Body mass index (BMI) [Ratio] 28.3 kg/m2 Dr. Bronson Bynum Work Phone: [facility] 08-27-2022 12:59-0500 Body temperature 96.1 [degF] Dr. Bronson Bynum Work Phone: [facility] 08-27-2022 12:59-0500 Body weight 84.[address] Bronson Bynum Work Phone: [facility] 08-27-2022 12:59-0500 Diastolic blood pressure 84 mm[Hg] Dr. Bronson Bynum Work Phone: [facility] 08-27-2022 12:59-0500 Heart rate 74 /min Dr. Bronson Bynum Work Phone: [facility] 08-27-2022 12:59-0500 Respiratory rate 18 /min Dr. Bronson Bynum Work Phone: [facility] 08-27-2022 12:59-0500 SaO2% (BldA) [Mass fraction] 95 % Dr. Bronson Bynum Work Phone: [facility] 08-27-2022 12:59-0500 Systolic blood pressure 142 mm[Hg] Dr. Bronson Bynum Work Phone: [facility] 11-08-2021 12:02-0400 Body height 156.21 cm Tabatha Swensonon DO Work Phone: [facility]; [facility] Work Phone: 11-08-2021 12:02-0400 Body mass index (BMI) [Ratio] 34.28 kg/m2 Tabatha Nuha DO Work Phone: [facility]; [facility] Work Phone: 11-08-2021 12:02-0400 Body surface area Derived from formula 1.84 m2 Tabatha Nuha DO Work Phone: [facility]; [facility] Work Phone: 11-08-2021 12:02-0400 Body weight 83.64 kg Tabatha Nuha DO Work Phone: [facility]; [facility] Work Phone: 09-06-2021 12:51-0500 Body height 156.21 cm William Lara LPN [facility]; [facility] Work Phone: 09-06-2021 12:51-0500 Body mass index (BMI) [Ratio] 33.65 kg/m2 William Lara LPN [facility]; [facility] Work Phone: 09-06-2021 12:51-0500 Body mass index (BMI) [Ratio] 34.28 kg/m2 William Lara LPN [facility]; [facility] Work Phone: 09-06-2021 12:51-0500 Body surface area Derived from formula 1.82 m2 William Lara LPN [facility]; [facility] Work Phone: 09-06-2021 12:51-0500 Body surface area Derived from formula 1.84 m2 William Lara LPN [facility]; [facility] Work Phone: 09-06-2021 12:51-0500 Body temperature 97.6 [degF] William Lara LPN [facility]; [facility] Work Phone: 09-06-2021 12:51-0500 Body weight 82.1 kg William Lara LPN [facility]; [facility] Work Phone: 09-06-2021 12:51-0500 Body weight 83.64 kg William Lara LPN [facility]; [facility] Work Phone: 09-06-2021 12:51-0500 Diastolic blood pressure 70 mm[Hg] William Lara LPN [facility]; [facility] Work Phone: 09-06-2021 12:51-0500 Heart rate 50 /min William Lara LPN [facility]; [facility] Work Phone: 09-06-2021 12:51-0500 Respiratory rate 16 /min William Lara LPN [facility]; [facility] Work Phone: 09-06-2021 12:51-0500 SaO2% (BldA) [Mass fraction] 100 % William Lara LPN [facility]; [facility] Work Phone: 09-06-2021 12:51-0500 Systolic blood pressure 118 mm[Hg] William Lara LPN [facility]; [facility] Work Phone: 03-01-2021 12:44-0400 Body height 156.21 cm Tammy Toth LPN [facility]; [facility] Work Phone: 03-01-2021 12:44-0400 Body mass index (BMI) [Ratio] 33.65 kg/m2 Tammy Toth LPN [facility]; [facility] Work Phone: 03-01-2021 12:44-0400 Body surface area Derived from formula 1.82 m2 Tammy Toth [employer] [facility]; [facility] Work Phone: 03-01-2021 12:44-0400 Body temperature 97.1 [degF] Tammy Toth LPN [facility]; [facility] Work Phone: 03-01-2021 12:44-0400 Body weight 82.1 kg Tammy Toth [employer] [facility]; [facility] Work Phone: 03-01-2021 12:44-0400 Diastolic blood pressure 70 mm[Hg] Tammy Toth [employer] [facility]; [facility] Work Phone: 03-01-2021 12:44-0400 Heart rate 77 /min Tammy Toth [employer] [facility]; [facility] Work Phone: 03-01-2021 12:44-0400 Respiratory rate 16 /min Tammy Toth [employer] [facility]; [facility] Work Phone: 03-01-2021 12:44-0400 SaO2% (BldA) [Mass fraction] 97 % Tammy Toth [employer] [facility]; [facility] Work Phone: 03-01-2021 12:44-0400 Systolic blood pressure 130 mm[Hg] Tammy Toth [employer] [facility]; [facility] Work Phone: 08-31-2020 10:19-0500 BMI (Body Mass Index) 34.2 kg/m2 JoanaTorsten Hui ADULT NEUROPSYCHOLOGIST Work Phone: [facility]; [facility] Work Phone: 08-31-2020 10:19-0500 Body weight 83.46 kg Mihaela Hui ADULT NEUROPSYCHOLOGIST Work Phone: [facility]; [facility] Work Phone: 08-31-2020 10:19-0500 BP Diastolic 61 mm[Hg] Mihaela Hui ADULT NEUROPSYCHOLOGIST Work Phone: [facility]; [facility] Work Phone: Comment on above: Patient Position: Supine; Cuff Location: Right Arm; Cuff Size: Standard 08-31-2020 10:19-0500 BP Systolic 132 mm[Hg] Mihaela Hui ADULT NEUROPSYCHOLOGIST Work Phone: [facility]; [facility] Work Phone: Comment on above: Patient Position: Supine; Cuff Location: Right Arm; Cuff Size: Standard 08-31-2020 10:19-0500 BSA (Body Surface Area) 1.83 m2 Mihaela Hui ADULT NEUROPSYCHOLOGIST Work Phone: [facility]; [facility] Work Phone: 08-31-2020 10:19-0500 Height 156.21 cm Mihaela Hui ADULT NEUROPSYCHOLOGIST Work Phone: [facility]; [facility] Work Phone: 08-31-2020 10:19-0500 Pulse (Heart Rate) 56 /min Mihaela Hui ADULT NEUROPSYCHOLOGIST Work Phone: [facility]; [facility] Work Phone: Comment on above: Pattern: Regular 06-06-2020 11:06-0500 BMI (Body Mass Index) 33.65 kg/m2 William Lara [facility] Work Phone: 06-06-2020 11:06-0500 Body weight 82.1 kg [facility] [facility] Work Phone: 06-06-2020 11:06-0500 BSA (Body Surface Area) 1.82 m2 William Lara [facility] Work Phone: 06-06-2020 11:06-0500 Height 156.21 cm William Lara [facility] Work Phone: 03-16-2020 13:35-0400 BMI (Body Mass Index) 33.65 kg/m2 Rupa Boudreaux [facility] Work Phone: 03-16-2020 13:35-0400 Body Temperature 97.1 [degF] Rupa Boudreaux [facility] Work Phone: 03-16-2020 13:35-0400 Body weight 82.1 kg Rupa Hayrb [employer] [facility] Work Phone: 03-16-2020 13:35-0400 BP Diastolic 68 mm[Hg] Rupa Slarb [employer] [facility] Work Phone: Comment on above: Patient Position: Sitting; Cuff Location : Left Arm; Cuff Size: Standard 03-16-2020 13:35-0400 BP Systolic 120 mm[Hg] Rupa Slarb [employer] [facility] Work Phone: Comment on above: Patient Position: Sitting; Cuff Location : Left Arm; Cuff Size: Standard 03-16-2020 13:35-0400 BSA (Body Surface Area) 1.82 m2 Rupa Slarb [employer] [facility] Work Phone: 03-16-2020 13:35-0400 Height 156.21 cm Rupa Slarb [employer] [facility] Work Phone: 03-16-2020 13:35-0400 Pulse (Heart Rate) 59 /min Rupa Hyarb [employer] [facility] Work Phone: Comment on above: Pattern: Regular 03-16-2020 13:35-0400 Pulse Oximetry 95 % Mihaela Hui [facility] Work Phone: Comment on above: Room air 03-16-2020 13:35-0400 Respiratory Rate 16 /min Rupa Satnamrb [employer] [facility] Work Phone: Comment on above: Pattern: Unlabored 03-16-2020 13:35-0400 SaO2% (BldA) [Mass fraction] 95 % Rupa Slarb [employer] [facility]; [facility] Work Phone: 09-14-2019 11:57-0500 BMI (Body Mass Index) 33.84 kg/m2 William Lara LPN [facility] Work Phone: 09-14-2019 11:57-0500 Body Temperature 97.8 [degF] William Lara LPN [facility] Work Phone: Comment on above: Method: Temporal 09-14-2019 11:57-0500 Body weight 82.57 kg William Lara LPN [facility] Work Phone: 09-14-2019 11:57-0500 BP Diastolic 78 mm[Hg] William Lara LPN [facility] Internal Medicine Work Phone: Comment on above: Patient Position: Sitting; Cuff Location : Left Arm; Cuff Size: Standard 09-14-2019 11:57-0500 BP Systolic 160 mm[Hg] William Lara LPN [facility] Work Phone: Comment on above: Patient Position: Sitting; Cuff Location : Left Arm; Cuff Size: Standard 09-14-2019 11:57-0500 BSA (Body Surface Area) 1.83 m2 William Lara LPN [facility] Work Phone: 09-14-2019 11:57-0500 Height 156.21 cm William Lara LPN [facility] Work Phone: 09-14-2019 11:57-0500 Pulse (Heart Rate) 58 /min William Lara LPN [facility] Work Phone: Comment on above: Pattern: Regular 09-14-2019 11:57-0500 Pulse Oximetry 97 % Mihaela Hui [facility] Work Phone: Comment on above: Room air 09-14-2019 11:57-0500 Respiratory Rate 16 /min William Lara LPN [facility] Work Phone: Comment on above: Pattern: Unlabored 09-14-2019 11:57-0500 SaO2% (BldA) [Mass fraction] 97 % William Lara LPN [facility]; [facility] Work Phone: 08-18-2019 13:57-0500 BMI (Body Mass Index) 34.21 kg/m2 William Lara LPN [facility] Work Phone: 08-18-2019 13:57-0500 Body Temperature 97.8 [degF] William Lara LPN [facility] Work Phone: Comment on above: Method: Temporal 08-18-2019 13:57-0500 Body weight 83.47 kg William Lara LPN [facility] Work Phone: 08-18-2019 13:57-0500 BP Diastolic 62 mm[Hg] William Lara LPN [facility] Work Phone: Comment on above: Patient Position: Sitting; Cuff Location : Left Arm; Cuff Size: Standard 08-18-2019 13:57-0500 BP Systolic 122 mm[Hg] William Lara LPN [facility] Work Phone: Comment on above: Patient Position: Sitting; Cuff Location : Left Arm; Cuff Size: Standard 08-18-2019 13:57-0500 BSA (Body Surface Area) 1.83 m2 William Lara LPN [facility] Work Phone: 08-18-2019 13:57-0500 Height 156.21 cm William Lara LPN [facility] Work Phone: 08-18-2019 13:57-0500 Pulse (Heart Rate) 67 /min William Lara LPN [facility] Work Phone: Comment on above: Pattern: Regular 08-18-2019 13:57-0500 Pulse Oximetry 97 % Mihaela Lowedidierross [facility] Work Phone: Comment on above: Room air 08-18-2019 13:57-0500 Respiratory Rate 16 /min William Lara LPN [facility] Work Phone: Comment on above: Pattern: Unlabored 08-18-2019 13:57-0500 SaO2% (BldA) [Mass fraction] 97 % William Lara LPN [facility]; [facility] Work Phone: 06-08-2019 15:04-0500 BMI (Body Mass Index) 33.55 kg/m2 Tammy Toth LPN [facility] Work Phone: 06-08-2019 15:04-0500 Body Temperature 97.3 [degF] Tammy Toth LPN [facility] Work Phone: 06-08-2019 15:04-0500 Body weight 81.87 kg Tammy Toth LPN [facility] Work Phone: 06-08-2019 15:04-0500 BP Diastolic 82 mm[Hg] Tammy Toth LPN [facility] Internal Medicine Work Phone: Comment on above: Patient Position: Sitting; Cuff Location : Left Arm; Cuff Size: Standard 06-08-2019 15:04-0500 BP Systolic 160 mm[Hg] Tammy Toth LPN [facility] Internal Medicine Work Phone: Comment on above: Patient Position: Sitting; Cuff Location : Left Arm; Cuff Size: Standard 06-08-2019 15:04-0500 BSA (Body Surface Area) 1.82 m2 Tammy Toth LPN [facility] Internal Medicine Work Phone: 06-08-2019 15:04-0500 Height 156.21 cm Tammy Toth LPN [facility] Work Phone: 06-08-2019 15:04-0500 Pulse (Heart Rate) 73 /min Tammy Toth LPN [facility] Internal Medicine Work Phone: Comment on above: Pattern: Regular 06-08-2019 15:04-0500 Pulse Oximetry 96 % Mihaela Hui [facility] Work Phone: Comment on above: Room air 06-08-2019 15:04-0500 Respiratory Rate 16 /min Tammy Toth LPN [facility] Medicine Work Phone: Comment on above: Pattern: Unlabored 06-08-2019 15:04-0500 SaO2% (BldA) [Mass fraction] 96 % Tammy Toth LPN [facility] Internal [facility]; [facility] Work Phone: 09-15-2018 13:57-0500 BMI (Body Mass Index) 35.88 kg/m2 Katalina Murphylear [facility] Internal Medicine Work Phone: 09-15-2018 13:57-0500 Body weight 87.54 kg Katalina Murphylear [facility] Work Phone: 09-15-2018 13:57-0500 BP Diastolic 72 mm[Hg] Katalina Murphylear [facility] Medicine Work Phone: Comment on above: Patient Position: Standing; Cuff Locatio n: Left Arm; Cuff Size: Standard 09-15-2018 13:57-0500 BP Systolic 132 mm[Hg] Katalina Thomas [facility] Internal Medicine Work Phone: Comment on above: Patient Position: Standing; Cuff Locatio n: Left Arm; Cuff Size: Standard 09-15-2018 13:57-0500 BSA (Body Surface Area) 1.87 m2 Katalina Thomas [facility] Work Phone: 09-15-2018 13:57-0500 Height 156.21 cm Katalina Thomas [facility] Work Phone: 09-15-2018 13:57-0500 Pulse (Heart Rate) 62 /min Katalina Thomas [facility] Work Phone: Comment on above: Pattern: Regular 09-15-2018 13:57-0500 Weight 87.54 kg Mihaela Hui [facility] Work Phone: 09-15-2018 13:50-0500 BMI (Body Mass Index) 35.88 kg/m2 Katalian Thomas [facility] Work Phone: 09-15-2018 13:50-0500 Body Temperature 97.7 [degF] Katalina Thomas [facility] Work Phone: Comment on above: Method: Temporal 09-15-2018 13:50-0500 Body weight 87.54 kg Katalina Thomas [facility] Work Phone: 09-15-2018 13:50-0500 BP Diastolic 72 mm[Hg] Katalina Thomas [facility] Work Phone: Comment on above: Patient Position: Sitting; Cuff Location : Left Arm; Cuff Size: Standard 09-15-2018 13:50-0500 BP Systolic 128 mm[Hg] Katalina Thomas [facility] Work Phone: Comment on above: Patient Position: Sitting; Cuff Location : Left Arm; Cuff Size: Standard 09-15-2018 13:50-0500 BSA (Body Surface Area) 1.87 m2 Katalina Thomas [facility] Work Phone: 09-15-2018 13:50-0500 Height 156.21 cm Katalina Thomas [facility] Work Phone: 09-15-2018 13:50-0500 Pulse (Heart Rate) 56 /min Katalina Thomas [facility] Work Phone: Comment on above: Pattern: Regular 09-15-2018 13:50-0500 Pulse Oximetry 96 % Mihaela Hui [facility] Work Phone: Comment on above: Room air 09-15-2018 13:50-0500 Respiratory Rate 18 /min Katalina Thomas [facility] Work Phone: Comment on above: Pattern: Unlabored 09-15-2018 13:50-0500 SaO2% (BldA) [Mass fraction] 96 % Katalina Thomas [facility]; [facility] Work Phone: 09-15-2018 13:50-0500 Weight 87.54 kg Mihaela Hui [facility] Work Phone: 09-12-2018 10:22-0500 BP Diastolic 60 mm[Hg] Mihaela Hui ADULT NEUROPSYCHOLOGIST Work Phone: [facility] Work Phone: Comment on above: Patient Position: Standing; Cuff Locatio n: Right Arm; Cuff Size: Standard 09-12-2018 10:22-0500 BP Systolic 102 mm[Hg] Mihaela Hui ADULT NEUROPSYCHOLOGIST Work Phone: [facility] Work Phone: Comment on above: Patient Position: Standing; Cuff Locatio n: Right Arm; Cuff Size: Standard 09-12-2018 10:22-0500 Pulse (Heart Rate) 100 /min Mihaela Hui ADULT NEUROPSYCHOLOGIST Work Phone: [facility] Work Phone: Comment on above: Pattern: Regular 09-12-2018 10:22-0500 BP Diastolic 68 mm[Hg] Mihaela Hui ADULT NEUROPSYCHOLOGIST Work Phone: [facility] Work Phone: Comment on above: Patient Position: Sitting; Cuff Location : Right Arm; Cuff Size: Standard 09-12-2018 10:22-0500 BP Systolic 118 mm[Hg] Mihaela Hui ADULT NEUROPSYCHOLOGIST Work Phone: [facility] Work Phone: Comment on above: Patient Position: Sitting; Cuff Location : Right Arm; Cuff Size: Standard 09-12-2018 10:22-0500 Pulse (Heart Rate) 89 /min Mihaela Hui [facility] Work Phone: [facility] Work Phone: Comment on above: Pattern: Regular 09-12-2018 09:55-0500 BMI (Body Mass Index) 35.88 kg/m2 William Lara LPN [facility] Work Phone: 09-12-2018 09:55-0500 Body Temperature 97.6 [degF] William Lara LPN [facility] Work Phone: Comment on above: Method: Temporal 09-12-2018 09:55-0500 Body weight 87.54 kg William Lara LPN [facility] Work Phone: 09-12-2018 09:55-0500 BP Diastolic 72 mm[Hg] William Lara LPN [facility] Work Phone: Comment on above: Patient Position: Sitting; Cuff Location : Left Arm; Cuff Size: Standard 09-12-2018 09:55-0500 BP Systolic 120 mm[Hg] William Lara LPN [facility] Work Phone: Comment on above: Patient Position: Sitting; Cuff Location : Left Arm; Cuff Size: Standard 09-12-2018 09:55-0500 BSA (Body Surface Area) 1.87 m2 William Lara LPN [facility] Work Phone: 09-12-2018 09:55-0500 Height 156.21 cm William Lara LPN [facility] Work Phone: 09-12-2018 09:55-0500 Pulse (Heart Rate) 92 /min William Lara LPN [facility] Work Phone: Comment on above: Pattern: Regular 09-12-2018 09:55-0500 Pulse Oximetry 97 % Mihaela Hui [facility] Work Phone: Comment on above: Room air 09-12-2018 09:55-0500 Respiratory Rate 19 /min William Lara LPN [facility] Work Phone: Comment on above: Pattern: Unlabored 09-12-2018 09:55-0500 SaO2% (BldA) [Mass fraction] 97 % William Lara [employer] [facility]; [facility] Work Phone: 09-12-2018 09:55-0500 Weight 87.54 kg Mihaela Hui [facility] Work Phone: 07-09-2018 11:27-0500 BMI (Body Mass Index) 35.88 kg/m2 Katalina Thomas [facility] Work Phone: 07-09-2018 11:27-0500 Body Temperature 97.2 [degF] Katalina Thomas [facility] Work Phone: Comment on above: Method: Temporal 07-09-2018 11:27-0500 Body weight 87.54 kg Katalina Thomas [facility] Work Phone: 07-09-2018 11:27-0500 BP Diastolic 62 mm[Hg] Katalina Thomas [facility] Work Phone: Comment on above: Patient Position: Sitting; Cuff Location : Left Arm; Cuff Size: Standard 07-09-2018 11:27-0500 BP Systolic 122 mm[Hg] Katalina Thomas [facility] Work Phone: Comment on above: Patient Position: Sitting; Cuff Location : Left Arm; Cuff Size: Standard 07-09-2018 11:27-0500 BSA (Body Surface Area) 1.87 m2 Katalina Thomas [facility] Work Phone: 07-09-2018 11:27-0500 Height 156.21 cm Katalina Thomas [facility] Work Phone: 07-09-2018 11:27-0500 Pulse (Heart Rate) 52 /min Katalina Thomas [facility] Work Phone: Comment on above: Pattern: Regular 07-09-2018 11:27-0500 Pulse Oximetry 96 % Mihaela Hui [facility] Work Phone: Comment on above: Room air 07-09-2018 11:27-0500 Respiratory Rate 17 /min Katalina Thomas [facility] Work Phone: Comment on above: Pattern: Unlabored 07-09-2018 11:27-0500 SaO2% (BldA) [Mass fraction] 96 % Katalina Thomas [facility]; [facility] Work Phone: 07-09-2018 11:27-0500 Weight 87.54 kg Mihaela Hui [facility] Work Phone: 10-21-2017 13:40-0400 BMI (Body Mass Index) 35.88 kg/m2 Rupa Slarb [employer] [facility] Work Phone: 10-21-2017 13:40-0400 Body Temperature 97.8 [degF] Rupa Slarb [employer] [facility] Work Phone: 10-21-2017 13:40-0400 Body weight 87.54 kg Rupa Slarb [employer] [facility] Work Phone: 10-21-2017 13:40-0400 BP Diastolic 72 mm[Hg] Rupa Slarb [employer] [facility] Work Phone: Comment on above: Patient Position: Sitting; Cuff Location : Left Arm; Cuff Size: Standard 10-21-2017 13:40-0400 BP Systolic 116 mm[Hg] Rupa Slarb [employer] [facility] Work Phone: Comment on above: Patient Position: Sitting; Cuff Location : Left Arm; Cuff Size: Standard 10-21-2017 13:40-0400 BSA (Body Surface Area) 1.87 m2 Rupa Slarb [employer] [facility] Work Phone: 10-21-2017 13:40-0400 Height 156.21 cm Rupa Slarb [employer] [facility] Work Phone: 10-21-2017 13:40-0400 Pulse (Heart Rate) 62 /min Rupa Slarb [employer] [facility] Work Phone: Comment on above: Pattern: Regular 10-21-2017 13:40-0400 Pulse Oximetry 98 % Mihaela Hui [facility] Work Phone: Comment on above: Room air 10-21-2017 13:40-0400 Respiratory Rate 16 /min Rupa Hayrena DO[employer]IER [facility] Work Phone: Comment on above: Pattern: Unlabored 10-21-2017 13:40-0400 SaO2% (BldA) [Mass fraction] 98 % Rupa Boudreaux [employer] [facility]; [facility] Work Phone: 10-21-2017 13:40-0400 Weight 87.54 kg Mihaela Hui [facility] Work Phone: 10-18-2017 07:55-0400 BMI (Body Mass Index) 35.88 kg/m2 William Lara LPN [facility] Work Phone: 10-18-2017 07:55-0400 Body Temperature 98.7 [degF] William Lara LPN [facility] Work Phone: 10-18-2017 07:55-0400 Body weight 87.54 kg William Lara LPN [facility] Work Phone: 10-18-2017 07:55-0400 BP Diastolic 82 mm[Hg] William Lara LPN [facility] Work Phone: Comment on above: Patient Position: Sitting; Cuff Location : Left Arm; Cuff Size: Standard 10-18-2017 07:55-0400 BP Systolic 134 mm[Hg] William Lara LPN [facility] Work Phone: Comment on above: Patient Position: Sitting; Cuff Location : Left Arm; Cuff Size: Standard 10-18-2017 07:55-0400 BSA (Body Surface Area) 1.87 m2 William Lara LPN [facility] Work Phone: 10-18-2017 07:55-0400 Height 156.21 cm William Lara LPN [facility] Work Phone: 10-18-2017 07:55-0400 Pulse (Heart Rate) 84 /min William Lara LPN [facility] Work Phone: Comment on above: Pattern: Regular 10-18-2017 07:55-0400 Pulse Oximetry 97 % Mihaela Korina [facility] Work Phone: Comment on above: Room air 10-18-2017 07:55-0400 Respiratory Rate 17 /min William Lara LPN [facility] Work Phone: Comment on above: Pattern: Unlabored 10-18-2017 07:55-0400 SaO2% (BldA) [Mass fraction] 97 % William Lara LPN [facility]; [facility] Work Phone: 10-18-2017 07:55-0400 Weight 87.54 kg Mihaela Hui [facility] Work Phone: 08-19-2017 13:51-0500 BMI (Body Mass Index) 35.88 kg/m2 Melita Cisse RN [facility] Work Phone: 08-19-2017 13:51-0500 Body Temperature 97.4 [degF] Melita Cisse RN [facility] Work Phone: Comment on above: Method: Temporal 08-19-2017 13:51-0500 Body weight 87.54 kg Melita Cisse RN [facility] Work Phone: 08-19-2017 13:51-0500 BP Diastolic 78 mm[Hg] Melita Cisse RN [facility] Work Phone: Comment on above: Patient Position: Sitting; Cuff Location : Left Arm; Cuff Size: Standard 08-19-2017 13:51-0500 BP Systolic 132 mm[Hg] Melita Cisse RN [facility] Work Phone: Comment on above: Patient Position: Sitting; Cuff Location : Left Arm; Cuff Size: Standard 08-19-2017 13:51-0500 BSA (Body Surface Area) 1.87 m2 Melita Cisse RN [facility] Work Phone: 08-19-2017 13:51-0500 Height 156.21 cm Melita Cisse RN [facility] Work Phone: 08-19-2017 13:51-0500 Pulse (Heart Rate) 61 /min Melita Cisse RN [facility] Work Phone: Comment on above: Pattern: Regular 08-19-2017 13:51-0500 Pulse Oximetry 96 % Mihaela Hui [facility] Work Phone: Comment on above: Room air 08-19-2017 13:51-0500 Respiratory Rate 16 /min Melita Cisse RN [facility] Work Phone: Comment on above: Pattern: Unlabored 08-19-2017 13:51-0500 SaO2% (BldA) [Mass fraction] 96 % Melita Cisse RN [facility]; [facility] Work Phone: 08-19-2017 13:51-0500 Weight 87.54 kg Mihaela Hui [facility] Work Phone: 04-12-2017 14:26-0400 BMI (Body Mass Index) 36.25 kg/m2 Rupa Kanika AUGUSTEN [facility] Work Phone: 04-12-2017 14:26-0400 Body Temperature 97.6 [degF] Rupa Kanika [employer] [facility] Work Phone: 04-12-2017 14:26-0400 Body weight 88.45 kg Rupa Satnamrb [employer] [facility] Work Phone: 04-12-2017 14:26-0400 BP Diastolic 62 mm[Hg] Rupa Satnamrb [employer] [facility] Work Phone: Comment on above: Patient Position: Sitting; Cuff Location : Left Arm; Cuff Size: Standard 04-12-2017 14:26-0400 BP Systolic 112 mm[Hg] Rupa Satnamrb [employer] [facility] Work Phone: Comment on above: Patient Position: Sitting; Cuff Location : Left Arm; Cuff Size: Standard 04-12-2017 14:26-0400 BSA (Body Surface Area) 1.88 m2 Rupa Satnamrb [employer] [facility] Work Phone: 04-12-2017 14:26-0400 Height 156.21 cm Rupa Satnamrb [employer] [facility] Work Phone: 04-12-2017 14:26-0400 Pulse (Heart Rate) 54 /min Rupa Boudreaux LPN [facility] Work Phone: Comment on above: Pattern: Regular 04-12-2017 14:-0400 Pulse Oximetry 97 % Mihaela Hui [facility] Work Phone: Comment on above: Room air 04-12-2017 14:26-0400 Respiratory Rate 18 /min Rupa Boudreaux LPN [facility] Work Phone: Comment on above: Pattern: Unlabored 04-12-2017 14:-0400 SaO2% (BldA) [Mass fraction] 97 % Rupa Satnamrb [employer] [facility]; [facility] Work Phone: 04-12-2017 14:-0400 Weight 88.45 kg Mihaela Hui [facility] Work Phone: 01-04-2017 14:23-0400 BMI (Body Mass Index) 36.34 kg/m2 Rupa Satnamrb [employer] [facility] Work Phone: 01-04-2017 14:23-0400 Body Temperature 97.6 [degF] Rupa Satnamrb [employer] [facility] Work Phone: 01-04-2017 14:23-0400 Body weight 88.68 kg Rupa Hayrb [employer] [facility] Work Phone: 01-04-2017 14:23-0400 BP Diastolic 78 mm[Hg] Rupa Slarb [employer] [facility] Work Phone: Comment on above: Patient Position: Sitting; Cuff Location : Left Arm; Cuff Size: Standard 01-04-2017 14:23-0400 BP Systolic 128 mm[Hg] Rupa Slarb [employer] [facility] Work Phone: Comment on above: Patient Position: Sitting; Cuff Location : Left Arm; Cuff Size: Standard 01-04-2017 14:23-0400 BSA (Body Surface Area) 1.88 m2 Rupa Slarb [employer] [facility] Work Phone: 01-04-2017 14:23-0400 Height 156.21 cm Rupa Slarb [employer] [facility] Work Phone: 01-04-2017 14:23-0400 Pulse (Heart Rate) 68 /min Rupa Boudreaux LPN [facility] Work Phone: Comment on above: Pattern: Regular 01-04-2017 14:-0400 Pulse Oximetry 98 % Mihaela Hui [facility] Work Phone: Comment on above: Room air 01-04-2017 14:23-0400 Respiratory Rate 16 /min Rupa Hayrb [employer] [facility] Work Phone: Comment on above: Pattern: Unlabored 01-04-2017 14:23-0400 SaO2% (BldA) [Mass fraction] 98 % Rupa Slarb [employer] [facility]; [facility] Work Phone: 01-04-2017 14:23-0400 Weight 88.68 kg Mihaela Hui [facility] Work Phone: 11-26-2016 10:28-0400 BMI (Body Mass Index) 36.43 kg/m2 Rupa Slarb [employer] [facility] Work Phone: 11-26-2016 10:28-0400 Body Temperature 97.7 [degF] Rupa Slarb [employer] [facility] Work Phone: 11-26-2016 10:28-0400 Body weight 88.91 kg Rupa Satnamrb [employer] [facility] Work Phone: 11-26-2016 10:28-0400 BP Diastolic 82 mm[Hg] Rupa Slarb [employer] [facility] Work Phone: Comment on above: Patient Position: Sitting; Cuff Location : Left Arm; Cuff Size: Standard 11-26-2016 10:28-0400 BP Systolic 136 mm[Hg] Ruap Slarb [employer] [facility] Work Phone: Comment on above: Patient Position: Sitting; Cuff Location : Left Arm; Cuff Size: Standard 11-26-2016 10:28-0400 BSA (Body Surface Area) 1.88 m2 Rupa Slarb [employer] [facility] Work Phone: 11-26-2016 10:28-0400 Height 156.21 cm Rupa Slarb [employer] Work Phone: 11-26-2016 10:28-0400 Pulse (Heart Rate) 73 /min Rupa Boudreaux [employer] [facility] Work Phone: Comment on above: Pattern: Regular 11-26-2016 10:28-0400 Pulse Oximetry 97 % Mihaela Hui [facility] Work Phone: Comment on above: Room air 11-26-2016 10:28-0400 Respiratory Rate 16 /min Rupa Boudreaux [employer] [facility] Work Phone: Comment on above: Pattern: Unlabored 11-26-2016 10:28-0400 SaO2% (BldA) [Mass fraction] 97 % Rupa Satnamrb [employer] [facility]; [facility] Work Phone: 11-26-2016 10:28-0400 Weight 88.91 kg Mihaela Hui [facility] Work Phone: 10-02-2016 15:14-0400 BMI (Body Mass Index) 37.08 kg/m2 Rupa Hayrb [employer] [facility] Work Phone: 10-02-2016 15:14-0400 Body Temperature 98 [degF] Rupa Hayrb [employer] [facility] Work Phone: 10-02-2016 15:14-0400 Body weight 90.49 kg Rupa Hayrb [employer] [facility] Work Phone: 10-02-2016 15:14-0400 BP Diastolic 68 mm[Hg] Rupa Satnamrb [employer] [facility] Work Phone: Comment on above: Patient Position: Sitting; Cuff Location : Left Arm; Cuff Size: Standard 10-02-2016 15:14-0400 BP Systolic 140 mm[Hg] Rupa Slarb [employer] [facility] Work Phone: Comment on above: Patient Position: Sitting; Cuff Location : Left Arm; Cuff Size: Standard 10-02-2016 15:14-0400 BSA (Body Surface Area) 1.9 m2 Rupa Satnamrb [employer] [facility] Work Phone: 10-02-2016 15:14-0400 Height 156.21 cm Rupa Boudreaux LPN [facility] Work Phone: 10-02-2016 15:14-0400 Pulse (Heart Rate) 84 /min Rupa Boudreaux LPN [facility] Work Phone: Comment on above: Pattern: Regular 10-02-2016 15:14-0400 Pulse Oximetry 98 % Mihaela Hui [facility] Work Phone: Comment on above: Room air 10-02-2016 15:14-0400 Respiratory Rate 18 /min Rupa Boudreaux [employer] [facility] Work Phone: Comment on above: Pattern: Unlabored 10-02-2016 15:14-0400 SaO2% (BldA) [Mass fraction] 98 % Rupa Hayrb [employer] [facility]; [facility] Work Phone: 10-02-2016 15:14-0400 Weight 90.49 kg Mihaela Hui [facility] Work Phone: 09-05-2016 11:31-0500 BMI (Body Mass Index) 37.04 kg/m2 Rupa Hayrb [employer] [facility] Work Phone: 09-05-2016 11:31-0500 Body Temperature 97.7 [degF] Rupa Boudreaux [employer] [facility] Work Phone: 09-05-2016 11:31-0500 Body weight 90.38 kg Rupa Hayrb [employer] [facility] Work Phone: 09-05-2016 11:31-0500 BP Diastolic 80 mm[Hg] Rupa Slarb [employer] [facility] Work Phone: Comment on above: Patient Position: Sitting; Cuff Location : Left Arm; Cuff Size: Standard 09-05-2016 11:31-0500 BP Systolic 142 mm[Hg] Rupa Slarb [employer] [facility] Work Phone: Comment on above: Patient Position: Sitting; Cuff Location : Left Arm; Cuff Size: Standard 09-05-2016 11:31-0500 BSA (Body Surface Area) 1.9 m2 Rupa Boudreaux LPN [facility] Work Phone: 09-05-2016 11:31-0500 Height 156.21 cm Rupa Boudreaux LPN [facility] Work Phone: 09-05-2016 11:31-0500 Pulse (Heart Rate) 69 /min Rupa Boudreaux LPN [facility] Work Phone: Comment on above: Pattern: Regular 09-05-2016 11:31-0500 Pulse Oximetry 95 % Mihaela Hui [facility] Work Phone: Comment on above: Room air 09-05-2016 11:31-0500 Respiratory Rate 16 /min Rupa Boudreaux LPN [facility] Work Phone: Comment on above: Pattern: Unlabored 09-05-2016 11:31-0500 SaO2% (BldA) [Mass fraction] 95 % Rupa Boudreaux [employer] [facility]; [facility] Work Phone: 09-05-2016 11:31-0500 Weight 90.38 kg Mihaela Hui [facility] Work Phone: 08-21-2016 14:34-0500 BMI (Body Mass Index) 36.99 kg/m2 Rupa Boudreaux LPN [facility] Work Phone: 08-21-2016 14:34-0500 Body Temperature 97.2 [degF] Rupa Boudreaux LPN [facility] Work Phone: 08-21-2016 14:34-0500 Body weight 90.27 kg Rupa Boudreaux LPN [facility] Work Phone: 08-21-2016 14:34-0500 BP Diastolic 78 mm[Hg] Rupa Boudreaux LPN [facility] Work Phone: Comment on above: Patient Position: Sitting; Cuff Location : Left Arm; Cuff Size: Standard 08-21-2016 14:34-0500 BP Systolic 122 mm[Hg] Rupa Boudreaux LPN [facility] Work Phone: Comment on above: Patient Position: Sitting; Cuff Location : Left Arm; Cuff Size: Standard 08-21-2016 14:34-0500 BSA (Body Surface Area) 1.9 m2 Rupa Boudreaux LPN [facility] Work Phone: 08-21-2016 14:34-0500 Height 156.21 cm Rupa Boudreaux LPN [facility] Work Phone: 08-21-2016 14:34-0500 Pulse (Heart Rate) 91 /min Rupa Boudreaux LPN [facility] Work Phone: Comment on above: Pattern: Regular 08-21-2016 14:34-0500 Pulse Oximetry 95 % Mihaela Hui [facility] Work Phone: Comment on above: Room air 08-21-2016 14:34-0500 Respiratory Rate 16 /min Rupa Boudreaux LPN [facility] Work Phone: Comment on above: Pattern: Unlabored 08-21-2016 14:34-0500 SaO2% (BldA) [Mass fraction] 95 % [facility] Work Phone: 08-21-2016 14:34-0500 Weight 90.27 kg Mihaela Hui [facility] Work Phone: 02-13-2016 14:26-0400 BMI (Body Mass Index) 36.25 kg/m2 Dior Sevilla [facility] Internal Medicine Work Phone: 02-13-2016 14:26-0400 Body weight 88.45 kg Dior Sevilla [facility] Work Phone: 02-13-2016 14:26-0400 BP Diastolic 68 mm[Hg] Dior Sevilla [facility] Work Phone: Comment on above: Patient Position: Sitting; Cuff Location : Left Arm; Cuff Size: Standard 02-13-2016 14:26-0400 BP Systolic 140 mm[Hg] Dior Sevilla [facility] Work Phone: Comment on above: Patient Position: Sitting; Cuff Location : Left Arm; Cuff Size: Standard 02-13-2016 14:26-0400 BSA (Body Surface Area) 1.88 m2 Dior Sevilla [facility] Work Phone: 02-13-2016 14:26-0400 Height 156.21 cm Dior Sevilla [facility] Work Phone: 02-13-2016 14:26-0400 Pulse (Heart Rate) 66 /min Dior Sevilla [facility] Work Phone: Comment on above: Pattern: Regular 02-13-2016 14:26-0400 Pulse Oximetry 96 % Mihaela Hui [facility] Work Phone: Comment on above: Room air 02-13-2016 14:26-0400 Respiratory Rate 16 /min Dior Sevilla [facility] Work Phone: Comment on above: Pattern: Unlabored 02-13-2016 14:26-0400 SaO2% (BldA) [Mass fraction] 96 % Dior Sevilla [facility]; [facility] Work Phone: 02-13-2016 14:26-0400 Weight 88.45 kg Mihaela Hui [facility] Work Phone: 02-06-2016 10:00-0400 BMI (Body Mass Index) 36.99 kg/m2 Rupa Slarb [facility] Work Phone: 02-06-2016 10:00-0400 Body Temperature 97.9 [degF] Rupa Slarb [employer] [facility] Work Phone: 02-06-2016 10:00-0400 Body weight 90.27 kg Rupa Slarb [employer] [facility] Work Phone: 02-06-2016 10:00-0400 BP Diastolic 76 mm[Hg] Rupa Slarb [employer] [facility] Work Phone: Comment on above: Patient Position: Sitting; Cuff Location : Left Arm; Cuff Size: Standard 02-06-2016 10:00-0400 BP Systolic 118 mm[Hg] Rupa Slarb [employer] [facility] Work Phone: Comment on above: Patient Position: Sitting; Cuff Location : Left Arm; Cuff Size: Standard 02-06-2016 10:00-0400 BSA (Body Surface Area) 1.9 m2 Rupa Boudreaux LPN [facility] Work Phone: 02-06-2016 10:00-0400 Height 156.21 cm Rupa Boudreaux [employer] [facility] Work Phone: 02-06-2016 10:00-0400 Pulse (Heart Rate) 50 /min Rupa Boudreaux [employer] [facility] Work Phone: Comment on above: Pattern: Regular 02-06-2016 10:00-0400 Pulse Oximetry 98 % Mihaela Hui [facility] Work Phone: Comment on above: Room air 02-06-2016 10:00-0400 Respiratory Rate 16 /min Rupa Boudreaux [employer] [facility] Work Phone: Comment on above: Pattern: Unlabored 02-06-2016 10:00-0400 SaO2% (BldA) [Mass fraction] 98 % Rupa Boudreaux [employer]; [facility] Work Phone: 02-06-2016 10:00-0400 Weight 90.27 kg Mihaela Hui [facility] Work Phone: 01-31-2016 15:36-0400 BMI (Body Mass Index) 36.99 kg/m2 Rupa Hayrb [employer] [facility] Work Phone: 01-31-2016 15:36-0400 Body weight 90.27 kg Rupa Hayrb [employer] [facility] Work Phone: 01-31-2016 15:36-0400 BP Diastolic 78 mm[Hg] Rupa Slarb [employer] [facility] Work Phone: Comment on above: Patient Position: Sitting; Cuff Location : Left Arm; Cuff Size: Standard 01-31-2016 15:36-0400 BP Systolic 116 mm[Hg] Rupa Slarb [employer] [facility] Work Phone: Comment on above: Patient Position: Sitting; Cuff Location : Left Arm; Cuff Size: Standard 01-31-2016 15:36-0400 BSA (Body Surface Area) 1.9 m2 Rupa Boudreaux LPN [facility] Work Phone: 01-31-2016 15:36-0400 Height 156.21 cm Rupa Boudreaux LPN [facility] Work Phone: 01-31-2016 15:36-0400 Pulse (Heart Rate) 55 /min Rupa Boudreaux LPN [facility] Work Phone: Comment on above: Pattern: Regular 01-31-2016 15:36-0400 Pulse Oximetry 98 % Mihaela Hui [facility] Work Phone: Comment on above: Room air 01-31-2016 15:36-0400 Respiratory Rate 16 /min Rupa Boudreaux [employer] [facility] Work Phone: Comment on above: Pattern: Unlabored 01-31-2016 15:36-0400 SaO2% (BldA) [Mass fraction] 98 % Rupa Boudreaux [employer] [facility]; [facility] Work Phone: 01-31-2016 15:36-0400 Weight 90.27 kg Mihaela Hui [facility] Work Phone: 09-13-2015 13:53-0500 BMI (Body Mass Index) 36.99 kg/m2 RALPH Leon TASIA [facility] Work Phone: 09-13-2015 13:53-0500 Body Temperature 97.6 [degF] RALPH Leon TASIA [facility] Work Phone: Comment on above: Method: Temporal 09-13-2015 13:53-0500 Body weight 90.27 kg RALPH Leon TASIA [facility] Work Phone: 09-13-2015 13:53-0500 BP Diastolic 74 mm[Hg] RALPH Leon TASIA [facility] Work Phone: Comment on above: Patient Position: Sitting; Cuff Location : Left Arm; Cuff Size: Standard 09-13-2015 13:53-0500 BP Systolic 120 mm[Hg] RALPH Leon LPN [facility] Work Phone: Comment on above: Patient Position: Sitting; Cuff Location : Left Arm; Cuff Size: Standard 09-13-2015 13:53-0500 BSA (Body Surface Area) 1.9 m2 RALPH Leon LPN [facility] Work Phone: 09-13-2015 13:53-0500 Height 156.21 cm RALPH Leon LPN [facility] Work Phone: 09-13-2015 13:53-0500 Pulse (Heart Rate) 68 /min RALPH Leon LPN [facility] Work Phone: Comment on above: Pattern: Regular 09-13-2015 13:53-0500 Pulse Oximetry 97 % Mihaela Hui [facility] Work Phone: Comment on above: Room air 09-13-2015 13:53-0500 Respiratory Rate 20 /min RALPH Leon LPN [facility] Work Phone: Comment on above: Pattern: Unlabored 09-13-2015 13:53-0500 SaO2% (BldA) [Mass fraction] 97 % RALPH Leon LPN [facility]; [facility] Work Phone: 09-13-2015 13:53-0500 Weight 90.27 kg Mihaela Hui [facility] Work Phone: 03-14-2015 13:25-0400 BMI (Body Mass Index) 29.94 kg/m2 RALPH Leon LPN [facility] Work Phone: 03-14-2015 13:25-0400 Body Temperature 97.7 [degF] RALPH Leon LPN [facility] Work Phone: Comment on above: Method: Temporal 03-14-2015 13:25-0400 Body weight 88 kg RALPH Leon LPN [facility] Work Phone: 03-14-2015 13:25-0400 BP Diastolic 76 mm[Hg] RALPH Leon LPN [facility] Work Phone: Comment on above: Patient Position: Sitting; Cuff Location : Left Arm; Cuff Size: Large 03-14-2015 13:25-0400 BP Systolic 124 mm[Hg] RALPH Leon LPN [facility] Work Phone: Comment on above: Patient Position: Sitting; Cuff Location : Left Arm; Cuff Size: Large 03-14-2015 13:25-0400 BSA (Body Surface Area) 2.01 m2 RALPH Leon TASIA [facility] Work Phone: 03-14-2015 13:25-040 Height 171.45 cm RALPH Leon TASIA [facility] Work Phone: 03-14-2015 13:25-0400 Pulse (Heart Rate) 60 /min RALPH Leon TASIA [facility] Work Phone: Comment on above: Pattern: Regular 03-14-2015 13:25-0400 Pulse Oximetry 98 % Mihaela Hui [facility] Work Phone: Comment on above: Room air 03-14-2015 13:25-0400 Respiratory Rate 18 /min RALPH Leon LPN [facility] Work Phone: Comment on above: Pattern: Unlabored 03-14-2015 13:25-0400 SaO2% (BldA) [Mass fraction] 98 % RALPH Leon TASIA [facility]; [facility] Work Phone: 03-14-2015 13:25-040 Weight 88 kg Mihaela Hui [facility] Work Phone: 02-23-2015 11:17-0400 BMI (Body Mass Index) 29.96 kg/m2 Rupa Boudreaux [employer] [facility] Work Phone: 02-23-2015 11:17-0400 Body Temperature 97.7 [degF] Rupa Boudreaux LPN [facility] Work Phone: 02-23-2015 11:17-0400 Body weight 88.06 kg Rupa Boudreaux [employer] [facility] Work Phone: 02-23-2015 11:17-0400 BP Diastolic 78 mm[Hg] Rupa Boudreaux LPN [facility] Work Phone: Comment on above: Patient Position: Sitting; Cuff Location : Left Arm; Cuff Size: Standard 02-23-2015 11:17-0400 BP Systolic 126 mm[Hg] Rupa Boudreaux LPN [facility] Work Phone: Comment on above: Patient Position: Sitting; Cuff Location : Left Arm; Cuff Size: Standard 02-23-2015 11:17-0400 BSA (Body Surface Area) 2.01 m2 Rupa Boudreaux LPN [facility] Work Phone: 02-23-2015 11:17-0400 Height 171.45 cm Rupa Boudreaux LPN [facility] Work Phone: 02-23-2015 11:17-0400 Pulse (Heart Rate) 80 /min Rupa Boudreaux LPN [facility] Work Phone: Comment on above: Pattern: Regular 02-23-2015 11:17-0400 Pulse Oximetry 98 % Mihaela Hui [facility] Work Phone: Comment on above: Room air 02-23-2015 11:17-0400 Respiratory Rate 18 /min Rupa Boudreaux LPN [facility] Work Phone: Comment on above: Pattern: Unlabored 02-23-2015 11:17-0400 SaO2% (BldA) [Mass fraction] 98 % Rupa Boudreaux LPN [facility]; [facility] Work Phone: 02-23-2015 11:17-0400 Weight 88.06 kg Mihaela Hui [facility] Work Phone: 02-14-2015 13:45-0400 BMI (Body Mass Index) 29.94 kg/m2 RALPH Edward DOZIER [facility] Work Phone: 02-14-2015 13:45-0400 Body Temperature 97 [degF] RALPH Edward DOZIER [facility] Work Phone: Comment on above: Method: Temporal 02-14-2015 13:45-0400 Body weight 88 kg RALPH Leon TASIA [facility] Work Phone: 02-14-2015 13:45-0400 BP Diastolic 78 mm[Hg] RALPH Leon TASIA [facility] Work Phone: Comment on above: Patient Position: Sitting; Cuff Location : Left Arm; Cuff Size: Standard 02-14-2015 13:45-0400 BP Systolic 120 mm[Hg] RALPH Leon TASIA [facility] Work Phone: Comment on above: Patient Position: Sitting; Cuff Location : Left Arm; Cuff Size: Standard 02-14-2015 13:45-0400 BSA (Body Surface Area) 2.01 m2 RALPH Leon TASIA [facility] Work Phone: 02-14-2015 13:45-0400 Height 171.45 cm RALPH Edward DOZIER [facility] Work Phone: 02-14-2015 13:45-0400 Pulse (Heart Rate) 68 /min RALPH Leon TASIA [facility] Work Phone: Comment on above: Pattern: Regular 02-14-2015 13:45-0400 Pulse Oximetry 98 % Mihaela Hui [facility] Work Phone: Comment on above: Room air 02-14-2015 13:45-0400 Respiratory Rate 18 /min RALPH Leon TASIA [facility] Work Phone: Comment on above: Pattern: Unlabored 02-14-2015 13:45-0400 SaO2% (BldA) [Mass fraction] 98 % RALPH Leon LPN [facility]; [facility] Work Phone: 02-14-2015 13:45-0400 Weight 88 kg Mihaela Hui [facility] Work Phone: 01-17-2015 13:28-0400 BMI (Body Mass Index) 30.06 kg/m2 Melita Cisse RN [facility] Work Phone: 01-17-2015 13:28-0400 Body Temperature 97 [degF] Melita Cisse RN [facility] Work Phone: Comment on above: Method: Temporal 01-17-2015 13:28-0400 Body weight 88.36 kg Melita Cisse RN [facility] Work Phone: 01-17-2015 13:28-0400 BP Diastolic 80 mm[Hg] Melita Cisse RN [facility] Work Phone: Comment on above: Patient Position: Sitting; Cuff Location : Left Arm; Cuff Size: Standard 01-17-2015 13:28-0400 BP Systolic 126 mm[Hg] Melita Cisse RN [facility] Work Phone: Comment on above: Patient Position: Sitting; Cuff Location : Left Arm; Cuff Size: Standard 01-17-2015 13:28-0400 BSA (Body Surface Area) 2.01 m2 Melita Cisse RN [facility] Work Phone: 01-17-2015 13:28-0400 Height 171.45 cm Melita Cisse RN [facility] Work Phone: 01-17-2015 13:28-0400 Pulse (Heart Rate) 72 /min Melita Cisse RN [facility] Work Phone: Comment on above: Pattern: Regular 01-17-2015 13:28-0400 Pulse Oximetry 95 % Mihaela Lowechava [facility] Work Phone: Comment on above: Room air 01-17-2015 13:28-0400 Respiratory Rate 16 /min Melita Cisse RN [facility] Work Phone: Comment on above: Pattern: Unlabored 01-17-2015 13:28-0400 SaO2% (BldA) [Mass fraction] 95 % Melita Cisse RN [facility]; [facility] Work Phone: 01-17-2015 13:28-0400 Weight 88.36 kg Mihaela Hui [facility] Work Phone: 12-28-2013 14:37-0400 BMI (Body Mass Index) 30.09 kg/m2 RALPH Leon LPN [facility] Work Phone: 12-28-2013 14:37-0400 Body Temperature 98 [degF] RALPH Leon LPN [facility] Work Phone: Comment on above: Method: Oral 12-28-2013 14:37-0400 Body weight 88.45 kg RALPH Leon LPN [facility] Work Phone: 12-28-2013 14:37-0400 BP Diastolic 72 mm[Hg] RALPH Leon LPN [facility] Work Phone: Comment on above: Patient Position: Sitting; Cuff Location : Left Arm; Cuff Size: Standard 12-28-2013 14:37-0400 BP Systolic 114 mm[Hg] RALPH Leon LPN [facility] Work Phone: Comment on above: Patient Position: Sitting; Cuff Location : Left Arm; Cuff Size: Standard 12-28-2013 14:37-0400 BSA (Body Surface Area) 2.01 m2 RALPH Leon LPN [facility] Work Phone: 12-28-2013 14:37-0400 Height 171.45 cm RALPH Leon LPN [facility] Work Phone: 12-28-2013 14:37-0400 Pulse (Heart Rate) 68 /min RALPH Leon LPN [facility] Work Phone: Comment on above: Pattern: Regular 12-28-2013 14:37-0400 Respiratory Rate 20 /min RALPH Leon LPN [facility] Work Phone: Comment on above: Pattern: Unlabored 12-28-2013 14:37-0400 Weight 88.45 kg Mihaela Hui [facility] Work Phone: 05-20-2013 10:050 BMI (Body Mass Index) 30.58 kg/m2 Bailee Mckeon [facility] Work Phone: 05-20-2013 10:050 Body Temperature 97.8 [degF] Bailee Mckeon [facility] Work Phone: Comment on above: Method: Tympanic 05-20-2013 10:050 Body weight 89.9 kg Bailee Mckeon [facility] Work Phone: 05-20-2013 10:21-0500 BP Diastolic 68 mm[Hg] Bailee Mckeon [facility] Work Phone: Comment on above: Patient Position: Sitting; Cuff Location : Left Arm; Cuff Size: Standard 05-20-2013 10:21-0500 BP Systolic 120 mm[Hg] Bailee Mckeon [facility] Work Phone: Comment on above: Patient Position: Sitting; Cuff Location : Left Arm; Cuff Size: Standard 05-20-2013 10:21-0500 BSA (Body Surface Area) 2.03 m2 Bailee Mckeon [facility] Work Phone: 05-20-2013 10:21-0500 Height 171.45 cm Bailee Mckeon [facility] Work Phone: 05-20-2013 10:21-0500 Pulse (Heart Rate) 82 /min Bailee Mckeon [facility] Work Phone: Comment on above: Pattern: Regular 05-20-2013 10:21-0500 Pulse Oximetry 97 % Mihaela Hui [facility] Work Phone: Comment on above: Room air 05-20-2013 10:21-0500 Respiratory Rate 18 /min Bailee Mckeon [facility] Work Phone: Comment on above: Pattern: Unlabored 05-20-2013 10:21-0500 SaO2% (BldA) [Mass fraction] 97 % Bailee Mckeon [facility]; [facility] Work Phone: 05-20-2013 10:21-0500 Weight 89.9 kg Mihaela Hui [facility] Work Phone: 04-21-2013 09:55-0400 BMI (Body Mass Index) 30.58 kg/m2 Bailee Mckeon [facility] Work Phone: 04-21-2013 09:55-0400 Body Temperature 98.2 [degF] Bailee Mckeon [facility] Work Phone: Comment on above: Method: Oral 04-21-2013 09:55-0400 Body weight 89.9 kg Bailee Mckeon [facility] Work Phone: 04-21-2013 09:55-0400 BP Diastolic 62 mm[Hg] Bailee Mckeon [facility] Work Phone: Comment on above: Patient Position: Sitting; Cuff Location : Left Arm; Cuff Size: Standard 04-21-2013 09:55-0400 BP Systolic 120 mm[Hg] Bailee Mckeon [facility] Work Phone: Comment on above: Patient Position: Sitting; Cuff Location : Left Arm; Cuff Size: Standard 04-21-2013 09:55-0400 BSA (Body Surface Area) 2.03 m2 Bailee Mckeon [facility] Work Phone: 04-21-2013 09:55-0400 Height 171.45 cm Bailee Mckeon [facility] Work Phone: 04-21-2013 09:55-0400 Pulse (Heart Rate) 56 /min Bailee Mckeon [facility] Work Phone: Comment on above: Pattern: Regular 04-21-2013 09:55-0400 Pulse Oximetry 98 % Mihaela Hui [facility] Work Phone: Comment on above: Room air 04-21-2013 09:55-0400 Respiratory Rate 18 /min Bailee Mckeon [facility] Work Phone: Comment on above: Pattern: Unlabored 04-21-2013 09:55-0400 SaO2% (BldA) [Mass fraction] 98 % Bailee Mckeon [facility]; [facility] Work Phone: 04-21-2013 09:55-0400 Weight 89.9 kg Mihaela Hui [facility] Work Phone: 04-21-2013 09:38-0400 BMI (Body Mass Index) 29.63 kg/m2 Melita Cisse RN [facility] Work Phone: 04-21-2013 09:38-0400 Body weight 87.09 kg Melita Cisse RN [facility] Work Phone: 04-21-2013 09:38-0400 BSA (Body Surface Area) 2 m2 Melita Cisse RN [facility] Work Phone: 04-21-2013 09:38-0400 Height 171.45 cm Melita Cisse RN [facility] Work Phone: 04-21-2013 09:38-0400 Weight 87.09 kg Mihaela Hui [facility] Work Phone: 10-23-2012 09:27-0400 BMI (Body Mass Index) 29.63 kg/m2 RALPH Leon LPN [facility] Work Phone: 10-23-2012 09:27-0400 Body Temperature 98.1 [degF] RALPH Leon LPN [facility] Work Phone: Comment on above: Method: Oral 10-23-2012 09:27-0400 Body weight 87.09 kg RALPH Leon LPN [facility] Work Phone: 10-23-2012 09:27-0400 BP Diastolic 78 mm[Hg] RALPH Leon LPN [facility] Work Phone: Comment on above: Patient Position: Sitting; Cuff Location : Left Arm; Cuff Size: Standard 10-23-2012 09:27-0400 BP Systolic 118 mm[Hg] RALPH Leon LPN [facility] Work Phone: Comment on above: Patient Position: Sitting; Cuff Location : Left Arm; Cuff Size: Standard 10-23-2012 09:27-0400 BSA (Body Surface Area) 2 m2 RALPH Leon LPN [facility] Work Phone: 10-23-2012 09:27-0400 Height 171.45 cm RALPH Leon LPN [facility] Work Phone: 10-23-2012 09:27-0400 Pulse (Heart Rate) 62 /min RALPH Leon LPN [facility] Work Phone: Comment on above: Pattern: Regular 10-23-2012 09:27-0400 Respiratory Rate 20 /min RALPH Leon LPN [facility] Work Phone: Comment on above: Pattern: Unlabored 10-23-2012 09:27-0400 Weight 87.09 kg Mihaela Hui [facility] Medicine Work Phone: 10-14-2012 13:38-0400 BMI (Body Mass Index) 29.7 kg/m2 Mihaela Hui [facility] Work Phone: 10-14-2012 13:38-0400 Body Temperature 98.4 [degF] Mihaela Hui [facility] Work Phone: Comment on above: Method: Oral 10-14-2012 13:38-0400 Body weight 87.32 kg Mihaela Hui [facility] Work Phone: 10-14-2012 13:38-0400 BP Diastolic 78 mm[Hg] Mihaela Hui [facility] Work Phone: Comment on above: Patient Position: Sitting; Cuff Location : Left Arm; Cuff Size: Standard 10-14-2012 13:38-0400 BP Systolic 124 mm[Hg] Mihaela Hui [facility] Work Phone: Comment on above: Patient Position: Sitting; Cuff Location : Left Arm; Cuff Size: Standard 10-14-2012 13:38-0400 BSA (Body Surface Area) 2 m2 Mihaela Hui [facility] Work Phone: 10-14-2012 13:38-0400 Height 171.45 cm Mihaela Hui [facility] Work Phone: 10-14-2012 13:38-0400 Pulse (Heart Rate) 60 /min Mihaela Hui [facility] Work Phone: Comment on above: Pattern: Regular 10-14-2012 13:38-0400 Pulse Oximetry 98 % Mihaela Hui [facility] Work Phone: Comment on above: Room air 10-14-2012 13:38-0400 SaO2% (BldA) [Mass fraction] 98 % Mihaela Hui [facility] Work Phone: [facility]; [facility] Work Phone: 10-14-2012 13:38-0400 Weight 87.32 kg Mihaela Hui [facility] Work Phone: 05-01-2012 08:31-0400 BMI (Body Mass Index) 29.7 kg/m2 Chloe Kelsey LPN [facility] Work Phone: 05-01-2012 08:31-0400 Body Temperature 96.7 [degF] Chloe Kelsey LPN [facility] Work Phone: Comment on above: Method: Tympanic 05-01-2012 08:31-0400 Body weight 87.32 kg Chloe Kelsey LPN [facility] Work Phone: 05-01-2012 08:31-0400 BP Diastolic 78 mm[Hg] Chloe Kelsey LPN [facility] Work Phone: Comment on above: Patient Position: Sitting; Cuff Location : Left Arm; Cuff Size: Standard 05-01-2012 08:31-0400 BP Systolic 130 mm[Hg] Chloe Kelsey LPN [facility] Work Phone: Comment on above: Patient Position: Sitting; Cuff Location : Left Arm; Cuff Size: Standard 05-01-2012 08:31-0400 BSA (Body Surface Area) 2 m2 Chloe Kelsey LPN [facility] Work Phone: 05-01-2012 08:31-0400 Height 171.45 cm Chloe Kelsey LPN [facility] Work Phone: 05-01-2012 08:31-0400 Pulse (Heart Rate) 60 /min Chloe Kelsey LPN [facility] Work Phone: Comment on above: Pattern: Regular 05-01-2012 08:31-0400 Respiratory Rate 16 /min Chloe Kelsey LPN [facility] Work Phone: Comment on above: Pattern: Unlabored 05-01-2012 08:31-0400 Weight 87.32 kg Mihaela Hui [facility] Work Phone: 03-11-2012 09:31-0400 BMI (Body Mass Index) 29.7 kg/m2 [facility] Work Phone: 03-11-2012 09:31-0400 Body Temperature 98.8 [degF] [facility] Work [facility]: Comment on above: Method: Oral 03-11-2012 09:31-0400 Body weight 87.32 kg [facility] Work Phone: 03-11-2012 09:31-0400 BP Diastolic 80 mm[Hg] [facility] Work Phone: Comment on above: Patient Position: Sitting; Cuff Location : Left Arm; Cuff Size: Standard 03-11-2012 09:31-0400 BP Systolic 140 mm[Hg] [facility] Work [facility]: Comment on above: Patient Position: Sitting; Cuff Location : Left Arm; Cuff Size: Standard 03-11-2012 09:31-0400 BSA (Body Surface Area) 2 m2 [facility] Work Phone: 03-11-2012 09:31-0400 Height 171.45 cm Mihaela [facility] Medicine Work Phone: 03-11-2012 09:31-0400 Pulse (Heart Rate) 78 /min [facility] Work Phone: Comment on above: Pattern: Regular 03-11-2012 09:31-0400 Respiratory Rate 17 /min [facility] Work Phone: 03-11-2012 09:31-0400 Weight 87.32 kg [facility] Work Phone: 02-07-2012 11:01-0400 BMI (Body Mass Index) 29.47 kg/m2 RALPH Leon LPN [facility] Work Phone: 02-07-2012 11:01-0400 Body Temperature 97.9 [degF] RALPH Leon LPN [facility] Work Phone: Comment on above: Method: Oral 02-07-2012 11:01-0400 Body weight 86.64 kg RALPH Leon LPN [facility] Work Phone: 02-07-2012 11:01-0400 BP Diastolic 74 mm[Hg] RALPH Leon LPN [facility] Medicine Work Phone: Comment on above: Patient Position: Sitting; Cuff Location : Left Arm; Cuff Size: Standard 02-07-2012 11:010400 BP Systolic 132 mm[Hg] RALPH Leon LPN [facility] Work Phone: Comment on above: Patient Position: Sitting; Cuff Location : Left Arm; Cuff Size: Standard 02-07-2012 11:0400 BSA (Body Surface Area) 1.99 m2 RALPH Leon LPN [facility] Medicine Work Phone: 02-07-2012 11:0400 Height 171.45 cm RALPH Leon LPN [facility] Work Phone: 02-07-2012 11:01-0400 Pulse (Heart Rate) 58 /min RALPH Leon LPN [facility] Work Phone: Comment on above: Pattern: Regular 02-07-2012 11:0400 Respiratory Rate 20 /min RALPH Leon LPN [facility] Work Phone: Comment on above: Pattern: Unlabored 02-07-2012 11:01-0400 Weight 86.64 kg Mihaela Hui [facility] Work Phone: 01-15-2012 15:28-0400 BMI (Body Mass Index) 27.66 kg/m2 Chloe Laure DOZIER [facility] Work Phone: 01-15-2012 15:28-0400 Body weight 86.18 kg Chloe Laure DOZIER [facility] Work Phone: 01-15-2012 15:28-0400 BP Diastolic 72 mm[Hg] Chloe Laure DOZIER [facility] Work Phone: Comment on above: Patient Position: Sitting; Cuff Location : Left Arm; Cuff Size: Standard 01-15-2012 15:28-0400 BP Systolic 110 mm[Hg] Chloe Kelsey LPN [facility] Work Phone: Comment on above: Patient Position: Sitting; Cuff Location : Left Arm; Cuff Size: Standard 01-15-2012 15:28-0400 BSA (Body Surface Area) 2.03 m2 Chloe Kelsey LPN [facility] Work Phone: 01-15-2012 15:28-0400 Height 176.53 cm Chloe Kelsey [employer] [facility] Work Phone: 01-15-2012 15:28-0400 Pulse (Heart Rate) 68 /min Chloe Ashrafzmarin [employer] [facility] Work Phone: Comment on above: Pattern: Regular 01-15-2012 15:28-0400 Respiratory Rate 16 /min Chloe Ashrafzmarin [employer] [facility] Work Phone: Comment on above: Pattern: Unlabored 01-15-2012 15:28-0400 Weight 86.18 kg Mihaela Hui [facility] Work Phone: Encounters Encounter Date Encounter Type Care Provider Facility Start: 12-18-2024 End: 12-18-[address] Bronson Bynum MD Work Phone: [facility] Work Phone: Start: 12-18-2024 End: 12-18-[address] Tyler Johnson MD -Laboratory Specimen Work Phone: Start: 12-18-2024 End: 12-18-2024 ambulatory Bronson Bynum Facility:[facility] Start: 11-30-2024 End: 11-30-[address] Bronson Bynum MD Work Phone: [facility] Work Phone: Start: 11-30-2024 End: 11-30-[address] Bronson Bynum MD -Laboratory Specimen Work Phone: Start: 11-30-2024 End: 11-30-2024 ambulatory Bronson Medeirosvenessatorsten Facility:[facility] Start: 11-27-2024 End: 11-27-[address] Bronson Bynum MD Work Phone: [facility] Work Phone: Start: 11-27-2024 End: 11-27-[address] Bronson Bynum MD -Laboratory [facility] Start: 11-27-2024 End: 11-27-[address] Bronson Bynum MD -[place] [facility] Work Phone: Start: 11-27-2024 End: 11-27-[address] Bronson Bynum MD Work Phone: [facility] Work Phone: Start: 11-27-2024 End: 11-27-2024 ambulatory Eugenecrestonsherry Bynum Facility:[facility] Start: 09-16-2024 End: 09-16-[address] Bronson Bynum MD -[place] [facility] Work Phone: Start: 09-16-2024 End: 09-16-2024 ambulatory Bronson Bynum [place] Start: 06-17-2024 End: 06-17-2024 ambulatory Bronson Bynum Facility:[facility] Start: 06-17-2024 End: 06-17-2024 ambulatory laminecrestonsherry Bynum Facility:[facility] Start: 06-05-2024 End: 06-05-2024 ambulatory BRONSON BYNUM MD Facility:[facility] Start: 06-05-2024 End: 06-05-[address] TYLER JOHNSON MD [facility] Start: 06-03-2024 End: 06-03-2024 ambulatory Eugenecrestonsherry Bynum Facility:[facility] Start: 04-14-2024 End: 04-14-2024 ambulatory Mary Merrill Facility:[facility] Start: 04-13-2024 End: 04-13-2024 ambulatory Efradhabe Olevenessae Facility:[facility] Start: 03-29-2024 End: 03-29-2024 Emergency department patient visit BRONSON BYNUM MD Facility:[facility] Start: 03-11-2024 End: 03-11-2024 ambulatory Bronson Dorantese Facility:[facility] Start: 03-04-2024 End: 03-04-2024 ambulatory Eflamineongbe Oleghe Facility:[facility] Start: 02-05-2024 ambulatory Efewongbe Oleghe Facili ty:[facility] Start: 02-05-2024 End: 02-05-2024 ambulatory Efewongbe Oleghe Facility:[facility] Start: 01-22-2024 End: 01-22-2024 ambulatory Eugenecrestonsherry Dorantese Facility:[facility] Start: 01-17-2024 ambulatory Eflamineongbe Jaynae Facili ty:[facility] Start: 01-13-2024 End: 01-13-2024 ambulatory Eflamineongbe Jaynae Facility:[facility] Start: 01-09-2024 End: 01-09-2024 Emergency department patient visit DR CESAR BELLA MD [facility] Start: 09-04-2023 End: 09-26-2023 ambulatory BRONSON BYNUM MD Facility:[facility] Start: 09-04-2023 End: 09-26-2023 Physical therapy management BRONSON BYNUM MD [facility] Start: 08-28-2023 End: 08-28-[address] Bronson Bynum Work Phone: [facility] Work Phone: Start: 08-28-2023 End: 08-28-[address] Bronson Bynum Work Phone: [facility] Work Phone: Start: 08-14-2023 End: 08-14-[address] Bronson Bynum Work Phone: [facility] Start: 05-20-2023 End: 05-20-[address] Bronson Bynum Work Phone: [facility] Work Phone: Start: 05-20-2023 End: 05-20-[address] Bronson Bynum Work Phone: [facility] Work Phone: Start: 04-22-2023 End: 04-22-2023 ambulatory MIHAELA WONG Facility:[facility] Start: 03-28-2023 End: 03-28-[address] Bronson Bynum Work Phone: [facility] Work Phone: Start: 11-21-2022 End: 11-21-[address] Bronson Bynum Work Phone: [facility] Work Phone: Start: 11-21-2022 End: 11-21-[address] Bronson Bynum Work Phone: [facility] Start: 08-27-2022 End: 08-27-[address] Bronson Bynum Work Phone: [facility] Start: 11-08-2021 End: 11-08-2021 Office outpatient visit 10 minutes Mihaela Ciesa Work Phone: [facility] Start: 09-06-2021 End: 09-06-2021 Office outpatient visit 25 minutes Mihaela Ciesa ADULT NEUROPSYCHOLOGIST Work Phone: [facility] Start: 09-06-2021 Mihaela Ciesa ADULT NEUROPSYCHOLOGIST Work Phone: [facility] Start: 08-22-2021 End: 08-22-2021 Office outpatient visit 15 minutes Mihaela Ciesa ADULT NEUROPSYCHOLOGIST Work Phone: [facility] Start: 03-01-2021 End: 03-01-2021 Office outpatient visit 15 minutes Mihaela Hui ADULT NEUROPSYCHOLOGIST Work Phone: [facility] Start: 08-31-2020 End: 08-31-2020 Office outpatient visit 15 minutes Mihaela Hui [facility] Start: 06-06-2020 End: 06-06-2020 Office outpatient visit 10 minutes Mihaela Hui [facility] Start: 06-06-2020 Review Mihaela Hui [facility] Start: 04-18-2020 End: 04-18-2020 Annotation/Addendum Mihaela Hui [facility] [employer] 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 Start: 04-18-2020 End: 04-18-2020 Mihaela Hui ADULT NEUROPSYCHOLOGIST Work Phone: [facility] Start: 03-16-2020 End: 03-16-2020 Office outpatient visit 25 minutes Mihaela Hui [facility] Start: 03-16-2020 Review Mihaela Arias [facility] Start: 09-14-2019 End: 09-14-2019 Office outpatient visit 25 minutes Mihaela Hui [facility] Start: 08-18-2019 End: 08-18-2019 Office outpatient visit 15 minutes Mihaela Hui [facility] Start: 06-08-2019 End: 06-08-2019 Annotation/Addendum Mihaela Hui [facility] [employer] 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 Start: 06-08-2019 End: 06-08-2019 Mihaela Hui CNP Work Phone: [facility] Start: 06-08-2019 End: 06-08-2019 Office outpatient visit 15 minutes Mihaela Hui [facility] Start: 04-14-2019 End: 04-14-2019 Annotation/Addendum Mihaela Hui [facility] 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 Start: 04-14-2019 End: 04-14-2019 Mihaela Hui ADULT NEUROPSYCHOLOGIST Work Phone: [facility] Start: 10-07-2018 End: 10-07-2018 Phone Encounter Mihaela Hui [facility] [employer] 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 Start: 10-07-2018 End: 10-07-2018 Mihaela Hui ADULT NEUROPSYCHOLOGIST Work Phone: [facility] Start: 09-15-2018 End: 09-15-2018 Office outpatient visit 25 minutes Mihaela Hui [facility] Start: 09-15-2018 Patient encounter procedure Mihaela Hui [facility] Start: 09-14-2018 End: 09-14-2018 Annotation/Addendum Mihaela Hui [facility] 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 Start: 09-14-2018 End: 09-14-2018 Mihaela Hui ADULT NEUROPSYCHOLOGIST Work Phone: [facility] Start: 09-12-2018 End: 09-12-2018 Annotation/Addendum Mihaela Hui [facility] [employer] 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 Start: 09-12-2018 End: 09-12-2018 Mihaela Hui ADULT NEUROPSYCHOLOGIST Work Phone: [facility] Start: 09-12-2018 End: 09-12-2018 Annotation/Addendum Mihaela Hui [facility] [employer] 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 Start: 09-12-2018 End: 09-12-2018 Mihaela Hui ADULT NEUROPSYCHOLOGIST Work Phone: [facility] Start: 09-12-2018 End: 09-12-2018 Office outpatient visit 25 minutes Mihaela Rolandross [facility] Start: 07-09-2018 End: 07-09-2018 Office outpatient visit 25 minutes Mihaela Hui [facility] Start: 04-28-2018 End: 04-28-2018 Annotation/Addendum Mihaela Hui [facility] 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 Start: 04-28-2018 End: 04-28-2018 Mihaela Hui ADULT NEUROPSYCHOLOGIST Work Phone: [facility] Start: 03-19-2018 End: 03-19-2018 Annotation/Addendum Mihaela Hui [facility] 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 Start: 03-19-2018 End: 03-19-2018 Mihaela Hui ADULT NEUROPSYCHOLOGIST Work Phone: [facility] Start: 10-21-2017 End: 10-21-2017 Patient encounter procedure Rica Farris ADULT NEUROPSYCHOLOGIST Work Phone: [facility] Start: 10-21-2017 End: 10-21-2017 Periodic preventive med est patient 65yrs& older Mihaela Hui [facility] Start: 10-18-2017 End: 10-18-2017 Office outpatient visit 15 minutes Mihaela Hui [facility] Start: 08-19-2017 End: 08-19-2017 Office outpatient visit 25 minutes Mihaela Hui [facility] Start: 05-24-2017 End: 05-24-2017 Annotation/Addendum Mihaela Hui [facility] 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 Start: 05-24-2017 End: 05-24-2017 Mihaela Hui ADULT NEUROPSYCHOLOGIST Work Phone: [facility] Start: 04-12-2017 End: 04-12-2017 Office outpatient visit 15 minutes Mihaela Chrissydidierross [facility] Start: 01-04-2017 End: 01-04-2017 Office outpatient visit 15 minutes Mihaela Rolandross [facility] Start: 11-26-2016 End: 11-26-2016 Office outpatient visit 15 minutes Mihaela Rolandross [facility] Start: 11-16-2016 End: 11-16-2016 Lab Order Mihaela Hui [facility] [facility] 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 Start: 11-16-2016 End: 11-16-2016 Mihaela Hui ADULT NEUROPSYCHOLOGIST Work Phone: [facility] Start: 10-02-2016 End: 10-02-2016 Office outpatient visit 25 minutes Mihaela Lowedidierross [facility] Start: 09-05-2016 End: 09-05-2016 Office outpatient visit 25 minutes Mihaela Rolandross [facility] Start: 08-21-2016 End: 08-21-2016 Office outpatient visit 25 minutes Mihaela Rolandross [facility] Start: 08-14-2016 End: 08-14-2016 Lab Order Mihaela Hui [facility] 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 Start: 08-14-2016 End: 08-14-2016 Mihaela Hui ADULT NEUROPSYCHOLOGIST Work Phone: [facility] Start: 02-17-2016 End: 02-17-2016 Annotation/Addendum Mihaela Hui [facility] 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 Start: 02-17-2016 End: 02-17-2016 Mihaela Hui ADULT NEUROPSYCHOLOGIST Work Phone: [facility] Start: 02-13-2016 End: 02-13-2016 Office outpatient visit 15 minutes Mihaela Hui [facility] Start: 02-06-2016 End: 02-06-2016 Office outpatient visit 15 minutes Mihaela Lowedidierross [facility] Start: 01-31-2016 End: 01-31-2016 Office outpatient visit 10 minutes Mihaela Hui [facility] Start: 09-13-2015 End: 09-13-2015 Office outpatient visit 15 minutes Mihaela Hui [facility] Start: 09-13-2015 End: 09-13-2015 Patient encounter procedure Rica Farris ADULT NEUROPSYCHOLOGIST Work Phone: [facility] Start: 03-16-2015 End: 03-16-2015 Historical Summary Mihaela Asuncionross [facility] 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 Start: 03-16-2015 End: 03-16-2015 Mihaela Hui ADULT NEUROPSYCHOLOGIST Work Phone: [facility] Start: 03-14-2015 End: 03-14-2015 Office outpatient visit 25 minutes Mihaela Asuncionross [facility] Start: 02-23-2015 End: 02-23-2015 Office outpatient visit 15 minutes Mihaela Hui [facility] Start: 02-15-2015 End: 02-15-2015 Periodic preventive med est patient 18-39 yrs Mihaela Rolandross [facility] Start: 02-14-2015 End: 02-14-2015 Prescription Refill Mihaela Korina Juan Ramon 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 Start: 02-14-2015 End: 02-14-2015 Mihaela Hui ADULT NEUROPSYCHOLOGIST Work Phone: [facility] Start: 02-14-2015 End: 02-14-2015 Periodic preventive med est patient 18-39 yrs Mihaela Hui [facility] Start: 01-17-2015 End: 01-17-2015 Office outpatient visit 25 minutes Mihaela Rolandross [facility] Start: 12-28-2013 End: 12-28-2013 Patient encounter procedure Mihaela Hui [facility] Start: 12-28-2013 End: 12-28-2013 Mihaela Hui ADULT NEUROPSYCHOLOGIST Work Phone: [facility] Start: 05-20-2013 End: 05-21-2013 Patient encounter procedure Mihaela Hui [facility] Start: 05-20-2013 End: 05-21-2013 Mihaela Hui ADULT NEUROPSYCHOLOGIST Work Phone: [facility] Start: 04-21-2013 End: 04-21-2013 Patient encounter procedure Mihaela Hui [facility] Start: 04-21-2013 End: 04-21-2013 Mihaela Hui ADULT NEUROPSYCHOLOGIST Work Phone: [facility] Start: 03-17-2013 End: 03-17-2013 Phone Encounter Mihaela Asuncionross Delatorre 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 Start: 03-17-2013 End: 03-17-2013 Mihaela Hui ADULT NEUROPSYCHOLOGIST Work Phone: [facility] Start: 02-02-2013 End: 02-02-2013 Refill Request Mihaela Hui [facility] 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 Start: 02-02-2013 End: 02-02-2013 Mihaela Hui ADULT NEUROPSYCHOLOGIST Work Phone: [facility] Start: 11-18-2012 End: 11-18-2012 Prescription Refill Mihaela Hui 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 Start: 11-18-2012 End: 11-18-2012 Mihaela Hui ADULT NEUROPSYCHOLOGIST Work Phone: [facility] Start: 10-23-2012 End: 10-23-2012 Patient encounter procedure Mihaela Hui [facility] Start: 10-23-2012 End: 10-23-2012 Mihaela Hui ADULT NEUROPSYCHOLOGIST Work Phone: [facility] Start: 10-14-2012 End: 10-14-2012 Office outpatient visit 25 minutes Mihaela Hui [facility] Start: 05-01-2012 End: 05-02-2012 Patient encounter procedure Mihaela Hui [facility] Start: 05-01-2012 End: 05-02-2012 Mihaela Hui ADULT NEUROPSYCHOLOGIST Work Phone: [facility] Start: 03-11-2012 End: 03-11-2012 Office outpatient visit 25 minutes Mihaela Hui [facility] Start: 02-07-2012 End: 02-07-2012 Phone Encounter Mihaela Hui Juan Ramon Pari [employer] 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 Start: 02-07-2012 End: 02-07-2012 Mihaela Hui CNP Work Phone: [facility] Start: 02-07-2012 End: 02-07-2012 Patient encounter procedure Mihaela Hui [facility] Start: 02-07-2012 End: 02-07-2012 Mihaela Hui ADULT NEUROPSYCHOLOGIST Work Phone: [facility] Start: 01-25-2012 End: 02-07-2012 Patient encounter procedure Mihaela Hui [facility] Start: 01-25-2012 End: 02-07-2012 Mihaela Hui ADULT NEUROPSYCHOLOGIST Work Phone: [facility] Start: 01-15-2012 End: 01-15-2012 Patient encounter procedure Mihaela Hui [facility] Start: 01-15-2012 End: 01-15-2012 Mihaela Hui CNP Work Phone: [facility] Patient encounter procedure Tammy Toth CONICAL MIXER [facility]; [facility] Work Phone: Patient encounter procedure Ryann Sewell DO Work Phone: [facility]; [facility] Work Phone: Patient encounter procedure William Lara CONICAL MIXER [facility]; [facility] Work Phone: Patient encounter procedure Roxane Kinney BRAKE ADJUSTER [facility]; [facility] Work Phone: Procedures Date Procedure Procedure Detail Performing Clinician Start: 06-05-[address] TYLER JOHNSON MD Start: 08-14-2023 Plain X-ray of shoulder Dr. Bronson Bynum Work Phone: Start: 05-20-[address] Bronson Bynum Work Phone: Start: 04-11-2022 End: 04-12-2022 Procedure Note: See Note; NOTES: [facility] [address] [place] [address] [place] [address] OFFICE VISIT Date of Service: 04/11/22 MR#: [id number] Acct: [id number] Name: DAVID HUBBARD Rep #: [id number] : 1945 Provider: Dr. 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: Establish care Is patient in pain?: Yes (Joint pain in hands ) Pain scale (1-10): 7 Allergies No Known Allergies Allergy (Unverified 04/11/22 11:09) Medications montelukast 5 mg chewable tablet (Singulair) 10 mg PO DAILY 06/29/18 [History Confirmed 04/11/22] cholecalciferol (vitamin D3) 50 mcg (2,000 unit) tablet 2,000 unit PO DAILY 08/05/18 [History Confirmed 04/11/22] omeprazole 40 mg capsule,delayed release 40 mg PO DAILY 08/05/18 [History Confirmed 04/11/22] meloxicam 15 mg tablet 15 mg PO DAILY PRN 08/07/18 [History Confirmed 04/11/22] hydrochlorothiazide 12.5 mg tablet 12.5 mg PO DAILY 02/04/19 [History Confirmed 04/11/22] albuterol sulfate 90 mcg/actuation aerosol inhaler 2 puff inhalation Q6H PRN 04/11/22 [History Confirmed 04/11/22] budesonide 160 mcg-glycopyr 9 mcg-formot 4.8 mcg/actuation HFA inhaler (Breztri Aerosphere) 2 inh inhalation BID 04/11/22 [History Confirmed 04/11/22] cetirizine 10 mg tablet (Zyrtec) 10 mg PO DAILY PRN 04/11/22 [History Confirmed 04/11/22] multivitamin 1 tab PO DAILY 04/11/22 [History Confirmed 04/11/22] prevagen PO 04/11/22 [History] Post menopausal: Yes PFSH Medical History (Updated 04/11/22 @ 12:[address] Bronson Bynum MD) Allergy-induced asthma Arthritis Cataracts, bilateral Chest pain Essential hypertension Fatigue GERD (gastroesophageal reflux disease) Knee pain Osteoarthritis Osteopenia Patent foramen ovale Seasonal allergies Shortness of breath SOB (shortness of breath) on exertion Surgical History (Updated 04/11/22 @ 11:14 by Lynn Coleman) History of arthroscopy of right knee History of carpal tunnel release History of right breast biopsy History of tubal ligation Family History (Updated 04/11/22 @ 11:13 by Lynn Coleman) Sister Diabetes Brother CAD (coronary artery disease) Cardiac pacemaker in situ Asthma Sister Diabetes Heart disease Mother Hypertension Thyroid disorder Social History (Updated 06/06/19 @ 10:19 by Fanny CARRERO, PA) Smoking Status: Never smoker alcohol intake: never substance use type: does not use HPI HPI 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: Establish care Details: DAVID HUBBARD, is a 76 F who presents to the office today to establish care. She has no concerns at this time. History of hypertension, Bp today at 140/60mmHg. She is on HCTZ and has been on it for sometime. She believes that her readings at her previous provider were typically in the 130s. Does not routinely check her blood pressure at home. Denies chest pain, palpitation or shortness of breath. History of osteoarthritis main concern is her hands. 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 She states that she had rheumatological work-up by her prior provider and these came back negative. Has been taking meloxicam as needed and has found it helpful. Other chronic medical conditions are stable. She states that she recently had blood work done in December/January. ROS Const Constitutional: No body ache, chills, excessive sweating, fatigue, fever(s), frequent falls, headache(s), snoring, weakness, weight change, sleep problems or change in appetite Eyes Eyes: No blurry vision, change in vision, eye pain or Light sensitivity ENT ENT: No abnormal hearing, ear or mastoid pain, tinnitus, nasal congestion, headache(s), neck pain or sore throat Resp Respiratory: No cough, shortness of breath, snoring or wheezing Cardio Cardiology: No chest pain at rest, chest pain with exertion, excessive sweating, shortness of breath, dyspnea on exertion, lightheadedness, orthopnea or palpitations Gastro GI: No abdominal pain, change in bowel habits, constipation, cramping, diarrhea, nausea/dyspepsia or vomiting Genitourinary-Female: No burning urination, painful urination, urinary incontinence, urinary frequency, abnormal vaginal bleeding or pelvic pain Musc Musculoskeletal: No abnormal gait, joint pain, back pain, limited range of motion, neck pain, numbness or tingling Skin Skin: No dry skin, redness, lesions, itchy eyes, rash or wounds Neuro Neurology: No abnormal gait, abnormal hearing, abnormal speech, dizziness, weakness, frequent falls, headache(s), memory loss, numbness or tingling Psych Psychiatric: No anxiety, No change in appetite, No depression, No memory loss and No Thoughts of harming yourself/Others Endo Endocrine: No cold intolerance, excessive sweating, fatigue, flushing, heat intolerance, increased thirst/drinking, increased hunger or weight change Aller/Imm Allergy/Immunologic: No itchy eyes, seasonal allergy symptoms, hives or wheezing Zane/Lymp Hematologic/Lymphatic: No easy bleeding, easy bruising or enlarged lymph nodes Exam Const General: cooperative, comfortable and no acute distress Orientation: alert, awake and oriented x3 [facility] Head: normal to inspection, normocephalic and atraumatic Ears: hearing grossly normal bilaterally Eyes General: appearance normal, both eyes and all related structures Neck Neck: normal visual inspection, full ROM, no lymphadenopathy and supple Neck mass: No Thyroid: thyroid normal Resp Effort Inspection: normal respiratory effort and able to speak in complete sentences Auscultation: Bilateral: Clear to Auscultation Cardio Rate: regular rate Rhythm: regular rhythm Heart Sounds: S1 normal and S2 normal GI Palpation: soft (Nontender, no palpable organomegaly.) Neuro General: patient alert, patient awake, patient oriented x3, moves all extremities and CN's II-XI intact bilaterally Extrem General: no clubbing, cyanosis or edema Psych Appearance: grossly normal Mental Status: mental status grossly normal Mood: congruent mood Affect: normal affect Coding Level of Care Code Off vis,new,level 4 Diagnoses Essential hypertension I10 Osteoarthritis M19.90 GERD (gastroesophageal reflux disease) K21.9 Assessment and Plan Assessment and Plan (1) Essential hypertension: Status: Chronic Plan: Initial and repeat blood pressure elevated. As above, does not routinely check it at home. She was advised to update office in 2 weeks. Continue hydrochlorothiazide 12.5 mg daily. We will request and review records from prior PCP to see labs, she states that she recently had labs done. Follow- up in 3 months or sooner if needed. (2) Osteoarthritis: Status: Chronic Plan: Chronic. Multijoint in involvement but primary concern at this time is her hands. Conservative measures discussed. Tylenol as needed and also okay to continue Meloxicam as needed. Avoid other NSAIDs when on meloxicam and take with foods and lots of water. Avoid nephrotoxic agents. Patient voiced understanding. (3) GERD (gastroesophageal reflux disease): Status: Chronic Plan: Stable on Prilosec. Continue current management. 04/12/22 2304 <Electronically signed by Bronson Bynum MD> Date Bronson Bynum MD Cosigner Signature: Date (if applicable) CC: Rica Farris [facility] Work Phone: Start: 05-16-2021 End: 05-17-2021 Comments: See Note; NOTES: [facility] Imaging Services [address] [place] [address] Dexa Bone Density Study MR#: [id number] Acct: [id number] Name: DAVID HUBBARD Rep #: [id number] : 1945 F 75 From: Emory canseco MD PCP: KARO Sneed Status: [facility] Study: Dexa Bone Density Study Date of Exam: 05/16/21 Exam# [id number] Ordering Dr: Mihaela Hui NP STUDY: DUAL ENERGY X-RAY ABSORPTIOMETRY / DXA REASON FOR EXAM: Female, 75 years old. [id number]. The patient is postmenopausal. TECHNIQUE: Bone Mineral Density (BMD) measurements of lumbar spine and bilateral hips were obtained. COMPARISON: Comparison is made with prior study dated 05/23/2017. FINDINGS: Lumbar Spine (L1-L4): g/cm2 (1.021) / T-score (-0.9) / Z-score (1.8) Findings are suggestive of normal bone density with a low fracture risk. Left Femur Total: g/cm2 (0.833) / T-score (-1.3) / Z-score (0.0) Left Femoral Neck: g/cm2 (0.740) / T-score (-1.5) / Z-score (0.1) Right Femur Total: g/cm2 (0.801) / T-score (-1.5) / Z-score (-0.2) Right Femoral Neck: g/cm2 (0.763) / T-score (-1.3) / Z-score (0.3) The T-Scores on the most recent prior examination were: Lumbar Spine (L1-L4): There has been worsening of bone density since the previous examination. Left Femur Total: which represents a worsening of 7.5%. Right Femur Total: which represents a worsening of 2.7%. BD/Dexa Bone Density Study IMPRESSION: The patient is considered osteopenic as outlined below according to World Jt Organization (WHO) criteria with a low fracture risk. There has been worsening of bone density since the previous examination. Reference Information: The T-score is the number of standard deviations above or below the standard which is normal for young adults at their peak bone mineral density. The World Health Organization (WHO) interprets the T-scores as follows: Above -1 Normal bone density Between -1 and -2.5 Osteopenia Equal to / or below -2.5 Osteoporosis As a practical clinical guideline, osteopenia may be graded as follows: Mild -1 through -1.5 Moderate -1.6 through -2.0 Severe -2.1 through -2.4 The Z-score is the number of standard deviations above or below age-matched controls. A Z-score of less than -1.5 would be considered abnormal. References: 1. NIH Osteoporosis and Related Bone Diseases www osteo.org 2. International Society for Clinical Densitometry www iscd.org 3. National Osteoporosis Foundation www nof.org Electronically Signed: Emory Sheppard MD at 12:50 EDT , Service support , CC: KARO Rolanda Program Writer: Signed Mihaela Hui ADULT NEUROPSYCHOLOGIST Work Phone: Start: 05-16-2021 End: 05-16-2021 Comments: See Note; NOTES: [facility] Imaging Services [address] [place] [address] SCRN MAMM (CAD)W/MICH BILAT MR#: [id number] Acct: [id number] Name: DAVID HUBBARD Rep #: [id number] : 1945 F 75 From: Emory canseco MD PCP: KARO Sneed Status: REG CLI Study: SCRN MAMM (CAD)W/MICH BILAT Date of Exam: 09/04 Exam# [id number] Ordering Dr: Mihaela Hui NP 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 Routine annual screening examination. PERTINENT HISTORY: Aunt with breast cancer. TECHNIQUE: Digital bilateral breast mich (3D mammographic acquisition) in the CC and MLO projections. 2-D mediolateral oblique (MLO) and craniocaudad (CC) views of both breasts were obtained. CAD: Full Field Digital Mammography with Computer Added Detection was performed. COMPARISON: Comparison is made with prior examination 05/11/2020 and 04/30/2019. FINDINGS: Breast Composition: The breasts are heterogeneously dense, which may obscure small masses. There are no dominant masses or suspicious calcifications. Stable small benign appearing bilateral axillary lymph nodes. No other significant abnormalities are identified. There has been no significant change since the prior study. BI/SCRN MAMM (CAD)W/MICH BILAT IMPRESSION: Stable bilateral screening mammogram. Yearly follow-up mammogram recommended. (A) ASSESSMENT CATEGORY: BIRADS Category 2: Benign. A letter regarding these results will be sent to the patient by the facility within 30 days. Approximately 10% of breast cancers are not detected by mammography. A normal mammogram should not delay biopsy of a clinically suspicious abnormality. [id number] Electronically Signed: Emory Sheppard MD at 14:15 EDT , Service support , CC: KARO Hui Program Writer: Signed Mihaela Hui ADULT NEUROPSYCHOLOGIST Work Phone: Start: 05-11-2020 End: 05-12-2020 SCREEN MAMM (CAD) W/MICH BILAT Comments: See Note; NOT ES: [facility] Imaging Services [address] [place] [address] SCREEN MAMM (CAD) W/MICH BILAT MR#: [id number] Acct: [id number] Name: DAVID HUBBARD Rep #: [id number] : 1945 F 74 From: Emory canseco MD PCP: KARO Sneed Status: [facility] Study: SCREEN MAMM (CAD) W/MICH BILAT Date of Exam: Exam# [id number] Ordering Dr: Mihaela Hui NP MAMMOGRAPHY - BILATERAL SCREENING REASON FOR EXAM: Female, 74 years old. Routine annual screening examination. PERTINENT HISTORY: Aunt with breast cancer. TECHNIQUE: Digital bilateral breast mich (3D mammographic acquisition) in the CC and MLO projections. 2-D mediolateral oblique (MLO) and craniocaudad (CC) views of both breasts were obtained. CAD: Full Field Digital Mammography with Computer Added Detection was performed. COMPARISON: Comparison is made with prior study dated 04/30/2019 and 04/24/2018. FINDINGS: Breast Composition: The breasts are heterogeneously dense, which may obscure small masses. There are no dominant masses or suspicious calcifications. No other significant abnormalities are identified. There has been no significant change since the prior study. BI/SCREEN MAMM (CAD) W/MICH BILAT IMPRESSION: Stable bilateral screening mammogram. Yearly follow-up mammogram recommended. (A) ASSESSMENT CATEGORY: BIRADS Category 1: Negative. A letter regarding these results will be sent to the patient by the facility within 30 days. Approximately 10% of breast cancers are not detected by mammography. A normal mammogram should not delay biopsy of a clinically suspicious abnormality. [id number] Electronically Signed: Emory Sheppard, at 10:12 EDT , Service support , CC: KARO Hui Program Writer: Signed Mihaela Hui Work Phone: Start: 08-18-2019 End: 08-18-2019 Abdomen Single View Comments: See Note; NOTES: [facility] Imaging Services [address] [place] [id number] Abdomen Single View MR#: [id number] Acct: [id number] Name: DAVID HUBBARD Rep #: [id number] : 1945 F 73 From: Nancy Méndez MD PCP: KARO Sneed Status: REG CLI Study: Abdomen Single View Date of Exam: 08/18/19 Exam# [id number] Ordering Dr: Mihaela Hui STUDY: X-RAY - ABDOMEN/PELVIS REASON FOR EXAM: Female, 73 years old. EPIGASTRIC PAIN TECHNIQUE: Two AP supine views of the abdomen and pelvis. COMPARISON: June 08, 2019 FINDINGS: Lung bases are mostly out of the [id number]. Is partially visualized on the prior study there are gas-filled loops of bowel in the left upper quadrant which may represent gaseous splenic flexure. There is moderate stool within the colon. There is no demonstrated free abdominal air. The visualized liver, spleen and kidneys are grossly normal in size and morphology. The calcific densities in the pelvis suggesting calcified fibroids. There is a sclerotic appearance of the symphysis pubis. There is degenerative change of the SI joints. There is left greater than right degenerative change of the hip joints. RAD/Abdomen Single View IMPRESSION: Nonspecific gassy appearance of the splenic flexure mild constipation. Calcified fibroids in the uterus suspected. Degenerative change in the thoracolumbar spine and both hip joints and symphysis pubis. Electronically Signed: Nancy Méndez MD at 16:05 EST Tel , Service support , CC: KARO Hui Program Writer: Signed Mihaela Hui Work Phone: Start: 06-08-2019 End: 06-08-2019 Chest PA and Lateral Comments: See Note; NOTES: [facility] Imaging Services [address] [place] [address] Chest PA and Lateral MR#: [id number] Acct: [id number] Name: DAVID HUBBARD Rep #: [id number] : 1945 F 73 From: Tasha Ferreira MD PCP: KARO Sneed Status: REG CLI Study: Chest PA and Lateral Date of Exam: 06/08/19 Exam# [id number] Ordering Dr: Mihaela Hui STUDY: X-RAY CHEST REASON FOR EXAM: Female, 73 years old. TECHNIQUE: 3 views COMPARISON: None. FINDINGS: The lungs are clear and expanded. There is no demonstrated pleural abnormality. Normal size heart. Normal mediastinum and anika. Normal visualized pulmonary arteries. Normal visualized aortic arch and descending thoracic aorta. Hypertrophic degenerative changes are seen in the dorsal spine.. Normal visualized ribs, clavicles, and shoulders. There is no demonstrated abnormality of the visualized soft tissue structures of the upper abdomen. RAD/Chest PA and Lateral IMPRESSION: No active intrathoracic disease noted Electronically Signed: Tasha Ferreira, at 16:17 EST Tel , Service support , CC: KARO Hui Program Writer: Signed Mihaela Hui Work Phone: Start: 06-06-2019 End: 06-06-2019 Urgent Care Visit Report Comments: See Note; NOTES: [facility] [address] [place] [address] OFFICE VISIT Date of Service: 06/06/19 MR#: [id number] Acct: [id number] Name: HUBBARDDAVID Rep #: [id number] : 1945 Provider: MAGAN German Age/Sex: 73/F [place] [facility] Status: Signed Intake Vital Signs06/06/19 Body Mass Index (BMI) 27.2 06/06/19 Height 5 ft 8 in Intake Visit Reasons: ALLERGIES 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: cough and wheezing Allergies No Known Allergies Allergy (Unverified 06/06/19 09:19) Medications montelukast 5 mg chewable tablet 10 mg PO DAILY 06/29/18 [History Confirmed 06/06/19] cetirizine 10 mg capsule 10 mg PO DAILY PRN cap 08/05/18 [History Confirmed 06/06/19] cholecalciferol (vitamin D3) 2,000 unit tablet 2,000 unit PO DAILY 08/05/18 [History Confirmed 06/06/19] omeprazole 40 mg capsule,delayed release 40 mg PO DAILY 08/05/18 [History Confirmed 06/06/19] meloxicam 15 mg tablet 15 mg PO DAILY PRN 08/07/18 [History Confirmed 06/06/19] hydrochlorothiazide 12.5 mg tablet 12.5 mg PO DAILY 02/04/19 [History Confirmed 06/06/19] prednisone 10 mg tablets in a dose pack See Rx Instructions PO PER PKG DIR #21 tab 06/06/19 [Rx Confirmed 06/06/19] PFSH Medical History Patent foramen ovale (Chronic) Essential hypertension (Chronic) GERD (gastroesophageal reflux disease) (Chronic) SOB (shortness of breath) on exertion (Acute) Chest pain (Acute) Arthritis (Acute) Seasonal allergies (Acute) Fatigue (Resolved) Knee pain (Resolved) Shortness of breath (Inactive) Surgical History History of arthroscopy of right knee (Resolved) History of right breast biopsy (Resolved) History of tubal ligation (Resolved) Family History Sister Diabetes Brother CAD (coronary artery disease) Cardiac pacemaker in situ Sister Diabetes Heart disease Mother Hypertension Social History (Updated 06/06/19 @ 10:19 by MAGAN Suero) Smoking Status: Never smoker alcohol intake: never substance use type: does not use HPI HPI 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: cough and wheezing Details: DAVID HUBBARD, is a 73 F who presents to the office today for wheezing that started one week ago, the same day her family visited from [place]. The family members had been in a house with cats for several days before they got to her house. She had immediate wheezing, eyes itching. Then rest of week continued to wheeze at night. She took a zyrtec every night since and added singulair. She has used a Proair inhaler that she has used twice past 2 days only as she forgot she had one. She had just gotten her monthly allergy shot 3 days ago (pollen, dust cats and dogs). Yesterday she started coughing and worsened last night. ROS Const Constitutional: No body ache, chills, excessive sweating, fatigue, fever(s), frequent falls, headache(s), night sweats, weakness or change in appetite Eyes Eyes: No change in vision, visual disturbances, eye pain or light sensitivity ENT ENT: Positive for nasal discharge (clear); no ear pain, ear discharge, hearing loss, dizziness/vertigo, headache(s), difficulty swallowing, neck pain or sore throat Resp Respiratory: Positive for cough, chest congestion, shortness of breath (when laying down with increased coughing) and wheezing; no hemoptysis Cardio Cardiology: Positive for shortness of breath and orthopnea (with increase in coughing.); no chest pain at rest, chest pain with exertion, excessive sweating, generalized swelling, irregular heart rhythm, lightheadedness or palpitations Gastro GI: No abdominal pain, bloating, change in bowel habits, diarrhea, difficulty swallowing, blood in stool, Black,tarry stools, nausea/dyspepsia or vomiting Genitourinary-Female: No burning urination, urinary frequency, urinary urgency, blood in urine or Vaginal Itching Musc Musculoskeletal: No joint pain, back pain, neck pain, numbness or tingling Skin Skin: Positive for itching; no lesions or rash Neuro Neurology: No abnormal speech, confusion, unsteady gait/balance, dizziness, weakness, frequent falls, headache(s), loss of vision, memory loss, numbness, tingling or visual disturbances Psych Psychiatric: No anxiety, No change in appetite, No confusion, No depression, No memory loss Endo Endocrine: No cold intolerance, excessive sweating, fatigue, flushing, heat intolerance or increased thirst/drinking Aller/Imm Allergy/Immunologic: Positive for itchy eyes, seasonal allergy symptoms and wheezing; no food intolerance or hives Zane/Lymp Hematologic/Lymphatic: No easy bruising Exam Const General: cooperative, comfortable, no acute distress Orientation: alert, oriented x3 [facility] Head: normal to inspection, normocephalic Ears: hearing grossly normal bilaterally, external ears normal, TM normal on the right, TM normal on the left, EAC's normal, no periauricular adenopathy Nose: mucous membranes and turbinates abnormal boggy and erythematous, nasal discharge clear Face and sinus: normal facial exam, sinuses nontender Mouth: oral mucosae normal, tongue normal, oropharynx normal Teeth and gingiva: dentition normal, gingiva normal Throat: posterior oropharynx normal Eyes General: appearance normal, both eyes and all related structures Eyelids: eyelids normal Conjunctivae: conjunctivae normal Sclera: sclerae normal Pupils: PERRL, accommodation normal EOM: EOM intact bilaterally Direct ophthalmoscopy: normal light reflex, no photophobia, no papilledema, fundi normal bilaterally Neck Neck: normal visual inspection, full ROM, no lymphadenopathy, no meningeal signs, trachea midline, supple Neck mass: No Thyroid: thyroid normal Carotids: no bruits Lymphatic: no lymphadenopathy noted Chest Chest palpation AND inspection: normal inspection of the chest Resp Effort AND Inspection: normal respiratory effort, able to speak in complete sentences, symmetric chest movement, no audible wheezes, no cough, not labored, no respiratory distress Auscultation: Bilateral: Expiratory Wheezes (pre breathing treatment ) Cardio Rate: regular rate Rhythm: regular rhythm Heart Sounds: S1 normal, S2 normal Other: no ankle edema GI Inspection: normal to inspection Auscultation: normal bowel sounds Palpation: soft, no hepatosplenomegaly, no pulsatile masses Musc Musculoskeletal: No joint tenderness or joint redness Skin General: no rashes or lesions noted Neuro General: alert, oriented x3, moves all extremities Cranial Nerves: CN's II-XI intact bilaterally Cognition: normal cognition Speech: speech normal Gait: normal gait Extrem General: normal to inspection Psych Appearance: grossly normal, well kempt Mental Status: mental status grossly normal Mood: congruent mood Affect: normal affect Speech and Movement: speech and movement normal Attitude: cooperative Thought Process: normal Thought Content: normal Office Meds albuterol sulfate 2.5 mg/3 mL (0.083 %) solution for nebulization Performing Provider: MAGAN Suero Administered by: Lupe Figueroa on 06/06/19 09:55 Dose Route Admin Location Lot Number Expiration DateNDC Quality Control Tester 2.5 mg continuous nebu [id number] 10/12/19 63091-377-44 [facility] Assessment AND Plan Problems 1. Exacerbation of allergic asthma J45.901 Plan Inhalation breathing treatment with albuteral (great respons with clear lungs bilaterally) Tapered dose prednisone sent to pharmacy Use albuteral inhaler twice a day, every 6 hours if needed Continue singulair f/u with PCP if symptoms persist/to ED if becomes more SOB Orders Orders: Medications New: Discontinued: albuterol sulfate 2.5 mg/3 mL (0.2.5 mg (3 mL) continuous [id number] Lupe Figueroa 083 %) solution for nebulization tion ONCE 1 mL 0RF Discontinued Reason: Office M edication has been Documented as given Coding Level of Care Code Off vis,est,level 3 Diagnoses Exacerbation of allergic asthma J45.901 06/06/19 1019 <Electronically signed by Fanny CARRERO> Date Fanny CARRERO Cosigner Signature: Date (if applicable) CC: Mihaela Hui Start: 04-30-2019 End: 04-30-2019 SCREEN MAMM (CAD) W/MICH BILAT Comments: See Note; NOT ES: [facility] Imaging Services [address] [place] [address] SCREEN MAMM (CAD) W/MICH BILAT MR#: [id number] Acct: [id number] Name: DAVID HUBBARD Rep #: [id number] : 1945 F 73 From: Emory Sheppard MD PCP: KARO Sneed Status: [facility] Study: SCREEN MAMM (CAD) W/MICH BILAT Date of Exam: 04/30/19 Exam# [id number] Ordering Dr: Mihaela Hui MAMMOGRAPHY - BILATERAL SCREENING REASON FOR EXAM: Female, 73 years old. Routine annual screening examination. PERTINENT HISTORY: Aunt with breast cancer. TECHNIQUE: Digital bilateral breast mich (3D mammographic acquisition) in the CC and MLO projections. 2-D mediolateral oblique (MLO) and craniocaudad (CC) views of both breasts were obtained. CAD: Full Field Digital Mammography with Computer Added Detection was performed. COMPARISON: Comparison is made with prior examination dated April 24, 2018 and February 22, 2017. FINDINGS: Breast Composition: The breasts are heterogeneously dense, which may obscure small masses. There are no dominant masses or suspicious calcifications. Stable benign-appearing bilateral axillary lymph nodes. No other significant abnormalities are identified. There has been no significant change since the prior study. BI/SCREEN MAMM (CAD) W/MICH BILAT IMPRESSION: Stable bilateral screening mammogram. Yearly follow-up mammogram recommended. (A) ASSESSMENT CATEGORY: BIRADS Category 2: Benign. A letter regarding these results will be sent to the patient by the facility within 30 days. Approximately 10% of breast cancers are not detected by mammography. A normal mammogram should not delay biopsy of a clinically suspicious abnormality. [id number] Electronically Signed: Emory Sheppard, at 12:39 EDT , Service support , CC: KARO Hui Program Writer: Signed Mihaela Hui Work Phone: Start: 02-04-2019 End: 02-04-2019 Cardiology Visit Report Comments: See Note; NOTES: [facility] [address] [place], [place] [address]. [address] [place] [address] OFFICE VISIT Date of Service: 02/04/19 MR#: [id number] Acct: [id number] Name: DAVID HUBBARD Rep #: [id number] : 1945 Provider: Hannah Loo Age/Sex: 73/F Location: [facility] Status: Signed [facility] History of Present Illness Details: This is a 73-year-old female that presents here today for a cardiovascular follow-up. She recently established with us. She does have a history of hypertension and a PFO. Pt was doing well until yesterday when she started with chest discomfort. She questions if it is muscle related as it it hurts with muscle related and with movement. She thinks that it feels better today. She was moving a mattress on Saturday. She does not have any worsening SOB. She does not have any does have any palpitations. She did have one episode of lightheadedness. She does not have any edema. She does keep herself active and takes care of her . Intake Vital Signs02/04/19 Height 5 ft 8 in 02/04/19 Weight: 179 lb 02/04/19 Body Mass Index (BMI) 27.2 02/04/19 Blood Pressure 128/64 H 02/04/19 Blood Pressure Location Lt brachial Intake Visit Reasons: 6 M FU 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 Accompanied by: None Is patient in pain?: No Allergies No Known Allergies Allergy (Unverified 08/07/18 14:29) Medications montelukast 5 mg chewable tablet 10 mg PO DAILY 06/29/18 [History Confirmed 02/04/19] cetirizine 10 mg capsule 10 mg PO DAILY PRN cap 08/05/18 [History Confirmed 02/04/19] cholecalciferol (vitamin D3) 2,000 unit tablet 2,000 unit PO DAILY 08/05/18 [History Confirmed 02/04/19] omeprazole 40 mg capsule,delayed release 40 mg PO DAILY 08/05/18 [History Confirmed 02/04/19] meloxicam 15 mg tablet 15 mg PO DAILY PRN 08/07/18 [History Confirmed 02/04/19] hydrochlorothiazide 12.5 mg tablet 12.5 mg PO DAILY 02/04/19 [History Confirmed 02/04/19] [facility] Medical History (Updated 02/04/19 @ 13:39 by MAGAN Valverde) Patent foramen ovale (Chronic) Essential hypertension (Chronic) GERD (gastroesophageal reflux disease) (Chronic) SOB (shortness of breath) on exertion (Acute) Chest pain (Acute) Arthritis (Acute) Seasonal allergies (Acute) Fatigue (Resolved) Knee pain (Resolved) Shortness of breath (Inactive) Surgical History History of arthroscopy of right knee (Resolved) History of right breast biopsy (Resolved) History of tubal ligation (Resolved) Family History Sister Diabetes Brother CAD (coronary artery disease) Cardiac pacemaker in situ Sister Diabetes Heart disease Mother Hypertension Social History (Updated 02/04/19 @ 13:40 by MAGAN Valverde) Smoking Status: Never smoker alcohol intake: never substance use type: does not use ROS Const Const: Negative for fatigue, weakness, fever(s) or headache(s) Eyes Eyes: Negative for blind spots, loss of peripheral vision or transient loss of vision ENT ENT: Negative for headache(s), dizziness, tinnitus or Nosebleed/epistaxis Cardio Chest Pain: Yes (worsenens with deep breathing) Palpitations: No Edema: None Muscle aches with walking: None Resp Respiratory: Negative for SOB with activity, SOB at rest, SOB orthopnea\SOB lying down or Cough GI GI: Negative nausea, vomiting, heartburn or vomiting blood/hematemesis : Negative for hematuria Musc Musc: Negative for muscle aches/ myalgia Neuro Neuro: Negative for dizziness, lightheadedness, near syncope, syncope, orthostatic symptoms, headache(s) or weakness Zane Hematologic/Lymphatic: Negative for easy bleeding Endo Endo: Negative for fatigue Cardiology Exam Const Appearance: cooperative, healthy appearing, comfortable, well developed and well groomed Nutritional Appearance: overweight Orientation: alert, awake and oriented x3 Head Head: normal to inspection, normocephalic and atraumatic Ears: hearing grossly normal bilaterally Nose: external nose normal Face and Sinus: face symmetric Mouth: oral mucosae normal Teeth and gingiva: fair dentition Eyes Eyelids: eyelids normal Conjunctivae: conjunctivae normal Pupils: PERRL EOM: EOM intact bilaterally Neck Neck: normal visual inspection and full ROM Carotids: normal carotid upstroke Chest Chest inspection: normal inspection of the chest, symmetric chest movement and normal respiratory effort Auscultation: Bilateral: Clear to Auscultation Cardio Palpation: normal PMI Rate: regular rate Rhythm: regular rhythm Heart sounds: S1 normal and S2 normal GI GI: normal to inspection, soft and bowel sounds present Neuro General: alert, awake, oriented x3 and moves all extremities Skin Skin: no rashes or lesions noted Extremities Pulses: Normal: Right Radial Pulse, Left Radial Pulse Lower Extremity Edema: None: Bilateral Psych Psychological: normal affect Assessment AND Plan 1. Essential hypertension I10 Plan Blood pressure is well controlled on current medications, we do not recommend any changes at this time. 2. Patent foramen ovale Q21.1 Plan This was noted on recent echocardiogram. This is stable. 3. Chest pain on breathing R07.1; R07.81 Plan Patient's chest discomfort worsens with movement and deep breathing. Feel that this is musculoskeletal related. Advised that she try her Mobic for 7 to 10 days. If not improved she should contact her primary care doctor. Plan Detail Additional Comments Patient may follow-up with us on an as-needed basis. Thank you for allowing us to participate in patient's plan of care, if you have any questions please do not hesitate to call. This note was generated using a voice recognition system and there may be incorrect words, spelling or punctuation errors that were not noted when reviewing the office note prior to saving Follow Up 02/04/19 (prn) Coding Level of Care Code Off vis,est,level 3 Diagnoses Essential hypertension I10 Patent foramen ovale Q21.1 Chest pain on breathing R07.1; R07.81 Chest pain type: chest pain on breathing Coding Level of Care Code Off vis,est,level 3 Diagnoses Essential hypertension I10 Patent foramen ovale Q21.1 Chest pain on breathing R07.1; R07.81 Chest pain type: chest pain on breathing Supplemental Info Supplemental Information Echocardiogram in 2019 demonstrated:Left ventricular systolic function is normal. The estimated ejection fraction is 60 %. Mid cavitary false tendon noted. The left atrium is mildly enlarged. Trivial mitral valve insufficiency. Mild tricuspid valve insufficiency. Trivial pulmonic valve insufficiency. Right ventricular systolic pressure estimated to be 21 mmHg. No evidence for diastolic dysfunction. Hypermobile atrial septum. Positive agitated saline contrast study for right to left interatrial shunt compatible with a PFO versus ASD. Stress test in 2019 demonstrated: 1. Rest and stress SPECT Cardiolite nuclear imaging demonstrate relative uniform tracer uptake and myocardial perfusion appearing within normal limits. 2. The gated Cardiolite study reports an LVEF of 76 %. Diagnostics Electrocardiogram 08/07/18 Echocardiogram 09/05/18 Stress Test Nuclear Medicine 09/05/18 Stress Test 09/05/18 02/04/19 1340 <Electronically signed by Hannah CARRERO> Date Hannah Begum Signature: Date (if applicable) CC: CAMERON Mihaela Hui Start: 09-05-2018 End: 09-05-2018 Stress Report Comments: See Note; NOTES: [facility] Cardiovascular Services [address] [place] [address] MR#: [id number] Acct: [id number] Name: STEVIEDAVID Magi Rep #: [id number] : 1945 73 From: Emanuel Ruffin MD Primary Care: Korina BARNES Mihaela Status: REG CLI Ordering Dr: Sex: F AA Stress Test Report Date: 09-05-2018 Procedure: Exercise tolerance test/imaging study Indications: Chest pain; shortness of breath/dyspnea Consent: Per the patient Procedure: The patient exercised on a Jameson protocol for 9 minutes completing Stage III achieving a peak heart rate of 146 bpm (99 % predicted maximal heart rate) with a peak blood pressure 170/64 mmHg and a peak MET capacity of 10 METs. The baseline ECG demonstrated Sinus bradycardia. The peak exercise ECG demonstrated no obvious ECG changes . There was a rare PVC during exercise . The functional capacity was considered good . There was no complaint of chest discomfort during exercise or recovery. The examination was discontinued secondary to dyspnea . Impression: 1. Technically adequate (percent predicted maximal heart rate greater than 85%) exercise tolerance test 2. Peak exercise ECG with no obvious ECG changes 3. There was a rare PVC during exercise 4. Nuclear images pending Myocardial perfusion imaging study: Technique: The patient was injected with 11 mCi of technetium 99m Cardiolite and subsequently rest SPECT Cardiolite nuclear imaging was obtained in the horizontal long, vertical long, and short axis views. The patient exercised on a Jameson protocol for 9 minutes completing Stage III achieving a peak heart rate of 146 bpm (99 % predicted maximal heart rate) with a peak blood pressure 170/64 mmHg and a peak MET capacity of 10 METs. The patient was injected with 31.9 mCi of technetium 99m Cardiolite and subsequently stress SPECT Cardiolite nuclear imaging was obtained in the horizontal long, vertical long, and short axis views. A gated Cardiolite study at peak stress was obtained. Interpretation: Rest and stress SPECT Cardiolite nuclear imaging status post realignment, normalization, and attenuation correction, demonstrates the appearance of relative uniform tracer uptake and myocardial perfusion appearing within normal limits. There is end systolic thickening and brightening. The gated Cardiolite study demonstrates myocardial thickening and inward wall motion. The reported LVEF is 76 %. Impression: 1. Rest and stress SPECT Cardiolite nuclear imaging demonstrate relative uniform tracer uptake and myocardial perfusion appearing within normal limits. 2. The gated Cardiolite study reports an LVEF of 76 %. This note was generated with [employer] software. It may contain incorrect words, spelling, and punctuation that were not noted in checking the note before signing. 09/05/181904 <Electronically signed by Emanuel Ruffin MD> Date Emanuel Ruffin MD CC: Mihaela Hui CLOTH SHRINKING MACHINE OPERATOR HELPER; Emanuel Ruffin MD Date Dictated: 09/05/181849 Date Transcribed: 09/05/181849 Program Writer: PM Signed Mihaela Hui Start: 09-05-2018 End: 09-05-2018 Echocardiogram Complete Comments: See Note; NOTES: [facility] Cardiovascular Services [address] [place] [address] Echo Complete 09/05/18 0922 MR#: [id number] Acct: [id number] Name: HUBBARDDVAID J Rep #: [id number] : 1945 73 From: Emanuel Ruffin MD Attending Dr: Emanuel Ruffin MD Status: REG CLI Ordering Dr: Emanuel Ruffin MD Date: 09/05/18 Location: [facility] Sex: F AA Admitted: Reason For Study: CP Procedure This was a 2D Doppler, Color Flow transthoracic echocardiogram. Exam performed in department. Left Ventricle Normal LV size. Mid cavitary false tendon noted. Left ventricular systolic function is normal. The estimated ejection fraction is 60 %. No evidence for diastolic dysfunction. No regional wall motion abnormalities noted. Right Ventricle Normal RV size. Normal systolic function. Atria The left atrium is mildly enlarged. Normal right atrium. Hypermobile atrial septum. Positive agitated saline contrast study for right to left interatrial shunt compatible with a PFO versus ASD. Mitral Valve There is no mitral annular calcification. Normal mitral valve. Trivial mitral valve insufficiency. Tricuspid Valve Normal tricuspid valve. Mild tricuspid valve insufficiency. Right ventricular systolic pressure estimated to be 21 mmHg. Aortic Valve Trisinus/trileaflet aortic valve. Normal aortic valve. Pulmonic Valve The pulmonic valve is not well visualized. Trivial pulmonic valve insufficiency. Great Vessels Normal sized aortic root. Pericardium/Pleural No pericardial effusion. Medication Performed a rapid injection of agitated mix of 9 cc saline and 1cc air to assess for atrial septal defect. MMode/2D Measurements AND Calculations LVIDd: 4.4 cm IVSd: 1.3 cm Ao root diam: 3.3 cm LVIDs: 2.5 cm LVPWd: 1.1 cm LA dimension: 3.3 cm FS: 42.5 % LAV(MOD-bp): 65.4 ml LA A4 area: 22.2 cm2 LAV(MOD-bp) Indexed: 33.4 ml/m2 LAV(MOD-sp2): 52.0 ml LAV(MOD-sp4): 66.8 ml Time Measurements MV dec time: 0.34 sec Doppler Measurements AND Calculations MV E max flakita: 59.9 cm/sec Lat Peak E' Flakita: 6.7 cm/sec Med Peak E' Flakita: 6.6 cm/sec MV A max flakita: 93.8 cm/sec E/E' lat: 8.9 E/E' med: 9.1 MV E/A: 0.64 MV V2 max: 123.3 cm/sec MV P1/2t max flakita: 65.5 cm/sec Ao V2 max: 113.1 cm/sec MV max P.1 mmHg MV P1/2t: 136.3 msec Ao max P.1 mmHg MV V2 mean: 50.5 cm/sec MV dec slope: 140.7 cm/sec2 MV mean P.2 mmHg MV V2 VTI: 31.9 cm MVA(P1/2t): 1.6 cm2 LV V1 max: 112.4 cm/sec PA V2 max: 89.6 cm/sec TR max flakita: 211.6 cm/sec LV V1 max P.1 mmHg TR max P.9 mmHg Interpretation Summary Left ventricular systolic function is normal. The estimated ejection fraction is 60 %. Mid cavitary false tendon noted. The left atrium is mildly enlarged. Trivial mitral valve insufficiency. Mild tricuspid valve insufficiency. Trivial pulmonic valve insufficiency. Right ventricular systolic pressure estimated to be 21 mmHg. No evidence for diastolic dysfunction. Hypermobile atrial septum. Positive agitated saline contrast study for right to left interatrial shunt compatible with a PFO versus ASD. Ordering Physician: Emanuel Ruffin Referring Physician: Emanuel Ruffin Performed By: Viral Orellana RCS 09/05/181807 Date Emanuel Ruffin MD CC: Mihaela Hui CLOTH SHRINKING MACHINE OPERATOR HELPER; Emanuel Ruffin MD Date Dictated: 09/05/18921 Date Transcribed: 09/05/181807 Program Writer: Signed Emanuel Ruffin Work Phone: Start: 08-07-2018 End: 08-07-2018 Cardiology Visit Report Comments: See Note; NOTES: [facility] [address] [place] [address]. [address] [place] [address] OFFICE VISIT Date of Service: 08/07/18 MR#: [id number] Acct: [id number] Name: DAVID HUBBARD Rep #: [id number] : 1945 Provider: Emanuel Ruffin MD Age/Sex: 72/F Location: [facility] Status: Signed HPI HPI Details: DAVID HUBBARD, is a 72 F who presents to the office today for Outpatient cardiovascular consultation. She states she has episodes of chest discomfort which he describes as a central chest pressure sensation. She notes sometimes when she has this is more difficult to take a deep breath. It does not necessarily radiate to other areas. It is not necessarily associated with nausea or emesis. There has been no episodes of near syncope or syncope. She does state she can become short of breath and dyspneic with activity. However she attributes that to her age. She is not had orthopnea or PND or peripheral pitting edema. She has been found to have on her PCP ECG sinus bradycardia with a ventricular rate of 48 beats per minute. She underwent evaluation with a 24-hour Holter monitor in June of 2018. Her rhythm was sinus and her average heart rate was 60 beats per minute. She had rare PACs and PVCs and no sustained narrower wide complex runs and no prolonged pauses. She had no symptoms. She has had a previous echocardiogram and exercise tolerance test performed in the summer of 2014. At that time her left ventricular wall motion and systolic function was considered normal with an estimated LVEF 60% with notation of mild TR and an estimated RV systolic pressure of 24 mmHg. She also had a report of a hypermobile interatrial septum with a PFO. Her stress test noted she exercised on a Jameson protocol for 6 minutes and 30 seconds achieving 98% predicted maximal heart rate with a peak blood pressure of 214/70 mmHg. She had no report of a myocardial perfusion scan suggesting no evidence of ischemia. Her LVEF was reported at 60 for percent. She has had no additional cardiovascular testing. Today in the office she had an ECG. She was noted to have sinus bradycardia with a ventricular rate of approximately 57 beats per minute with no acute ECG changes. Intake Vital Signs08/07/18 Body Mass Index (BMI) 27.3 08/07/18 Height 5 ft 8 in 08/07/18 Weight: 181 lb 08/07/18 Body Mass Index (BMI) 27.5 08/07/18 Blood Pressure 130/68 H Intake Visit Reasons: SOB/ Ref. Mihaela Hui Allergies No Known Allergies Allergy (Unverified 08/07/18 14:29) Medications albuterol sulfate HFA 90 mcg/actuation aerosol inhaler 2 puff INHALATION Q6H PRN #6.7 g 06/29/18 [Rx Confirmed 08/07/18] montelukast 5 mg chewable tablet 10 mg PO DAILY 06/29/18 [History Confirmed 08/07/18] cetirizine 10 mg capsule 10 mg PO DAILY PRN cap 08/05/18 [History Confirmed 08/07/18] cholecalciferol (vitamin D3) 2,000 unit tablet 2,000 unit PO DAILY 08/05/18 [History Confirmed 08/07/18] hydrochlorothiazide 12.5 mg tablet 12.5 mg PO DAILY PRN 08/05/18 [History Confirmed 08/07/18] omeprazole 40 mg capsule,delayed release 40 mg PO DAILY 08/05/18 [History Confirmed 08/07/18] meloxicam 15 mg tablet 15 mg PO DAILY PRN 08/07/18 [History Confirmed 08/07/18] [facility] Medical History Patent foramen ovale (Chronic) Essential hypertension (Chronic) GERD (gastroesophageal reflux disease) (Chronic) SOB (shortness of breath) on exertion (Acute) Chest pain (Acute) Arthritis (Acute) Fatigue (Acute) Knee pain (Acute) Seasonal allergies (Acute) Shortness of breath (Inactive) Surgical History History of arthroscopy of right knee (Resolved) History of right breast biopsy (Resolved) History of tubal ligation (Resolved) Family History Sister Diabetes Brother CAD (coronary artery disease) Cardiac pacemaker in situ Sister Diabetes Heart disease Mother Hypertension Social History Smoking Status: Never smoker alcohol intake: never substance use type: does not use ROS Const Const: Negative for fatigue, weakness, weight gain, weight loss, frequent falls or excessive sweating Eyes Eyes: Negative for change in vision, blurry vision or transient loss of vision ENT ENT: Negative for dizziness or balance problems Cardio Chest Pain: Yes Character: other (heaviness) Onset: at rest Location: mid sternal Duration: minutes (5) Relieving: rest Palpitations: No Edema: None Muscle aches with walking: None Additional Details: Patient rpeorts that she would become SOB when experiencing CP. Resp Respiratory: Positive for SOB with activity (going up/downstairs); negative for SOB at rest GI GI: Negative vomiting or vomiting blood/hematemesis : Negative for hematuria Musc Musc: Negative for balance problems, muscle aches/ myalgia, muscle weakness or joint pain Skin Skin: Negative non-healing lesions or rash Neuro Neuro: Negative for weakness, blurry vision, dizziness, lightheadedness, frequent falls or orthostatic symptoms Zane Hematologic/Lymphatic: Negative for easy bleeding Endo Endo: Negative for fatigue or excessive sweating Psych Psych: Negative for anxiety or depression Allergy Allergy/Immunology: Negative for hives, Negative for rash Cardiology Exam Const Appearance: cooperative, healthy appearing, comfortable, well developed and well groomed Nutritional Appearance: overweight Orientation: alert, awake and oriented x3 Head Head: normal to inspection, normocephalic and atraumatic Ears: hearing grossly normal bilaterally Nose: external nose normal Face and Sinus: face symmetric Mouth: oral mucosae normal Teeth and gingiva: fair dentition Eyes Eyelids: eyelids normal Conjunctivae: conjunctivae normal Pupils: PERRL EOM: EOM intact bilaterally Neck Neck: normal visual inspection and full ROM Carotids: normal carotid upstroke Chest Chest inspection: normal inspection of the chest, symmetric chest movement and normal respiratory effort Auscultation: Bilateral: Clear to Auscultation Cardio Palpation: normal PMI Rate: regular rate Rhythm: regular rhythm Heart sounds: S1 normal and S2 normal GI GI: normal to inspection, soft and bowel sounds present Neuro General: alert, awake, oriented x3 and moves all extremities Skin Skin: no rashes or lesions noted Extremities Pulses: Normal: Right Radial Pulse, Left Radial Pulse Lower Extremity Edema: None: Bilateral Psych Psychological: normal affect Assessment AND Plan 1. Sinus bradycardia R00.1 Plan At the present time she does have sinus bradycardia. She appears to be without any obvious symptoms or hemodynamic compromise. She is not on rails limiting medications. She will continue to be followed for this. Over time depending upon her rate and rhythm and or any associated symptoms are concerned she may or may not eventually need a permanent pacemaker placement. Orders Orders: 2. Chest pain, unspecified R07.9 Plan She does have a report of chest pain. It is somewhat mixed with respect to the characteristics. At the present time she will have a followup exercise tolerance test/imaging study to reassess for any obvious evidence of myocardial ischemia that would warrant further evaluation and care. Orders Orders: 3. SOB (shortness of breath) on exertion R06.02 Plan She can get shorter breath/Ayala with some levels of activity. She has attributed this to her age. At the same time there maybe cardiovascular concerns. Thus she will be assessed with an echocardiogram to evaluate her left ventricular wall motion and systolic function as well as the aforementioned exercise tolerance test/nuclear imaging study. Orders Orders: 4. Patent foramen ovale Q21.1 Plan She does have a PFO. There is no evidence that she has had any obvious adverse events or compromise from this. She will be followed and it can be reassessed with an echocardiogram as deemed appropriate. Orders Orders: 5. Essential hypertension I10 Plan She does have a history of hypertension. She admits she is not been taking her HCTZ as previously prescribed. She states she is planning on restarting it. Orders Orders: Plan Detail Additional Comments Thank you for allowing me to participate in the care of your patient. Please don't hesitate to call if any issues arise. This note was generated using a voice recognition system and there may be incorrect words, spelling or punctuation that were not noted when reviewing the office note prior to saving. Follow Up 6 Months (PF) Coding Level of Care Code Off vis,new,level 4 Diagnoses Sinus bradycardia R00.1 Chest pain, unspecified R07.9 SOB (shortness of breath) on exertion R06.02 Patent foramen ovale Q21.1 Essential hypertension I10 Coding Level of Care Code Off vis,new,level 4 Diagnoses Sinus bradycardia R00.1 Chest pain, unspecified R07.9 SOB (shortness of breath) on exertion R06.02 Patent foramen ovale Q21.1 Essential hypertension I10 Supplemental Info Supplemental Information Diagnostics Electrocardiogram 08/07/18 Echocardiogram 02/01/15 Stress Test Nuclear Medicine 02/01/15 08/07/18 1523 <Electronically signed by Emanuel Ruffin MD> Date Emanuel Ruffin MD Cosigner Signature: Date (if applicable) CC: Mihaela Hui CLOTH SHRINKING MACHINE OPERATOR HELPER Mihaela Hui Start: 08-07-2018 End: 08-07-2018 12 Lead EKG performed [place] [facility] Comments: See Note; NOTES : [facility] [address] [place] [address] 12 Lead EKG performed by [facility] 08/07/18 1428 MR#: [id number] Acct: [id number] Name: STEVIEDAVID Rep #: [id number] : 1945 72 From: Emanuel Ruffin MD Attending Dr: Emanuel Ruffin MD Status: DEP AMB Ordering Dr: Emanuel Ruffin MD Date: 08/07/18 Location: [facility] [place] Sex: F AA Admitted: BMS/12 Lead EKG performed by [facility] ECG Report Interpretation Sin us Bradycardia Nonspecific T wave abnormalityElectronically signed on 08/07/2018 at 19:13 by Emanuel Rfufin Software Version [id number] 08/07/181916 Date Emanuel Ruffin MD CC: Mihaela Hui CAMERON Date Dictated: 08/07/181427 Date Transcribed: 08/07/181427 Program Writer: PM Signed Emanuel Ruffin Work Phone: Start: 06-29-2018 End: 06-29-2018 Urgent Care Visit Report Comments: See Note; NOTES: [facility] [address] [place] [address] [address] [place] [address] OFFICE VISIT Date of Service: 06/29/18 MR#: [id number] Acct: [id number] Name: DAVID HUBBARD Rep #: [id number] : 1945 Provider: Hannah Loo Age/Sex: 72/F Location[facility] Status: Signed Intake Vital Signs06/29/18 Height 5 ft 8 in 06/29/18 Weight: 180 lb 06/29/18 Body Mass Index (BMI) 27.3 06/29/18 Blood Pressure 126/78 H Intake Visit Reasons: COUGH, FEVER 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 Accompanied by: SELF Is patient in pain?: No Allergies No Known Allergies Allergy (Unverified 06/29/18 08:30) Medications albuterol sulfate HFA 90 mcg/actuation aerosol inhaler 2 puff INHALATION Q6H PRN #6.7 g 06/29/18 [Rx Confirmed 06/29/18] azithromycin 250 mg tablet See Rx Instructions PO .COMPLEX #6 tab 06/29/18 [Rx Confirmed 06/29/18] cetirizine 10 mg capsule PO cap 06/29/18 [History Confirmed 06/29/18] montelukast 5 mg chewable tablet 10 mg PO DAILY 06/29/18 [History Confirmed 06/29/18] PFSH Medical History Arthritis (Acute) Chest pain (Acute) Fatigue (Acute) Knee pain (Acute) Seasonal allergies (Acute) Shortness of breath (Acute) Family History Other Diabetes Social History Smoking Status: Never smoker alcohol intake: never HPI HPI Details: DAVID HUBBARD, is a 72 F who presents to the office today for an urgent appt. Pt sts that her symptoms started saturday with a fever/body aches and cough. She notes that she has sinus drainage. She does have a hoarse voice. Positive for lack of energy. She did take 2 days worth of old antx. She does take care of her who is nonambulatory ROS Const Constitutional: Positive for body ache, fatigue, fever(s) and headache(s) Eyes Eyes: No light sensitivity, discharge or change in vision ENT ENT: Positive for headache(s) and sore throat; no nasal congestion, nasal discharge, sinus pressure or post nasal drip Resp Respiratory: Positive for cough and shortness of breath sob: SOB with activity Cardio Cardiology: No chest pain at rest, chest pain with exertion or shortness of breath Gastro GI: No diarrhea, nausea/dyspepsia or Vomiting blood/hematemesis Neuro Neurology: Positive for headache(s) Endo Endocrine: Positive for fatigue Exam Const General: cooperative, no acute distress Orientation: alert, oriented x3 HENMT Head: atraumatic, normocephalic Ears: TM's normal bilaterally Nose: nasal mucous membranes and turbinates normal Face and sinus: normal facial exam, sinuses nontender Mouth: moist mucous membranes Throat: posterior oropharynx normal Eyes Sclera: sclerae normal Cornea: corneas normal Pupils: PERRL EOM: EOM intact bilaterally Neck Neck: no lymphadenopathy, trachea midline, supple Neck mass: No Thyroid: thyroid normal Resp Effort AND Inspection: normal respiratory effort, cough Quality of cough: wet Auscultation: Bilateral: Diminished Lung Sounds, Crackles Cardio Palpation: normal PMI Rate: regular rate Rhythm: regular rhythm Heart Sounds: S1 normal, S2 normal, no click, no gallops, no murmurs, no rubs GI Auscultation: normal bowel sounds Percussion: normal to percussion Palpation: soft, no hepatosplenomegaly, nontender Skin General: no rashes or lesions noted Neuro General: alert, oriented x3, CN's II-XI intact bilaterally, no focal motor deficits Assessment AND Plan Problems 1. Pneumonia of both lungs due to infectious organism, unspecified part of lung J18.9 Plan Advised patient to complete course of antibiotics given. Advised patient on the importance of hydration. Recommended the use of fgtz-pqk-[id number] support from Advil, Tylenol and agih-duq-bvydmqy cold medications to help alleviate symptoms. Did review maximum dosing on each of these medications to avoid accidental overdose of medications. Advised that if not any better in 5 days contact PCP. Medications New: azithromycin (Zithromax Z-Adelfo) take 500 mg today (day 1), then 250 mg for 4 days (days 2-5 ) PO 6 tabs 0RF Coding Level of Care Code Off vis,new,level 3 Diagnoses Pneumonia of both lungs due to infectious organism, unspecified part of lung J18.9 Pneumonia type: due to unspecified organism Laterality: bilateral Lung location: unspecified part of lung 06/29/18 0925 <Electronically signed by Hannah CARRERO> Date Hannah CARRERO Cosigner Signature: Date (if applicable) CC: Mihaela Hui Start: 04-24-2018 End: 04-28-2018 SCREENING MAMM (CAD), BILAT Comments: See Note; NOTES: [facility] Imaging Services [address] [place] [address] SCREENING MAMM (CAD), BILAT MR#: [id number] Acct: [id number] Name: DAVID HUBBARD Rep #: [id number] : 1945 F 72 From: Emory Sheppard MD PCP: Mihaela Hui NP Status: REG CLI Study: SCREENING MAMM (CAD), BILAT Date of Exam: 04/24/18 Exam# [id number] Ordering Dr: Mihaela Hui CLOTH SHRINKING MACHINE OPERATOR HELPER-C MAMMOGRAPHY - BILATERAL SCREENING REASON FOR EXAM: Female, 72 years old. Routine annual screening examination. PERTINENT HISTORY: Aunt with breast cancer. TECHNIQUE: Digital bilateral breast mich (3D mammographic acquisition) in the CC and MLO projections. 2-D mediolateral oblique (MLO) and craniocaudad (CC) views of both breasts were obtained. CAD: Full Field Digital Mammography with Computer Added Detection was performed. COMPARISON: Comparison is made with prior study dated February 22, 2017. FINDINGS: Breast Composition: The breasts are heterogeneously dense, which may obscure small masses. There are no dominant masses or suspicious calcifications. No other significant abnormalities are identified. There has been no significant change since the prior study. BI/SCREENING MAMM (CAD), BILAT IMPRESSION: Stable bilateral screening mammogram. Yearly follow-up mammogram recommended. (A) ASSESSMENT CATEGORY: BIRADS Category 1: Negative. A letter regarding these results will be sent to the patient by the facility within 30 days. Approximately 10% of breast cancers are not detected by mammography. A normal mammogram should not delay biopsy of a clinically suspicious abnormality. [id number] Electronically Signed: Emory Sheppard MD at 11:19 EDT Tel [phone], Service support , CC: Mihaela Hui NP Program Writer: Signed Mihaela Hui Work Phone: Start: 05-23-2017 End: 05-23-2017 Dexa Bone Density Study (HP) Comments: See Note; NOTES : [facility] Imaging Services [address] [place] [address] Dexa Bone Density Study (HP) MR#: [id number] Acct: [id number] Name: DAVID HUBBARD Rep #: [id number] : 1945 F 71 From: Emory Sheppard MD PCP: Mihaela Hui Status: REG CLI Study: Dexa Bone Density Study (HP) Date of Exam: 05/23/17 Exam# [id number] Ordering Dr: Mihaela Hui STUDY: DUAL ENERGY X-RAY ABSORPTIOMETRY / DXA REASON FOR EXAM: Female, 71 years old. The patient is postmenopausal. Loss of height of 1.5 inches. TECHNIQUE: Bone Mineral Density (BMD) measurements of lumbar spine and bilateral hips were obtained. COMPARISON: None. FINDINGS: Lumbar Spine (L1-L4): g/cm2 (1.208) / T-score (0.1) / Z-score (1.1) Findings are suggestive of normal bone density with a low fracture risk. Left Femur Total: g/cm2 (0.965) / T-score (-0.3) / Z-score (0.2) Left Femoral Neck: g/cm2 (0.887) / T-score (-1.1) / Z-score (-0.2) Right Femur Total: g/cm2 (0.886) / T-score (-1.0) / Z-score (-0.4) Right Femoral Neck: g/cm2 (0.831) / T-score (-1.5) / Z-score (-0.6) HPBD/Dexa Bone Density Study (HP) IMPRESSION: The patient is considered osteopenic as outlined below according to World Jt Organization (WHO) criteria with a moderate fracture risk. Reference Information: The T-score is the number of standard deviations above or below the standard which is normal for young adults at their peak bone mineral density. The World Health Organization (WHO) interprets the T-scores as follows: Above -1 Normal bone density Between -1 and -2.5 Osteopenia Equal to / or below -2.5 Osteoporosis As a practical clinical guideline, osteopenia may be graded as follows: Mild -1 through -1.5 Moderate -1.6 through -2.0 Severe -2.1 through -2.4 The Z-score is the number of standard deviations above or below age-matched controls. A Z-score of less than -1.5 would be considered abnormal. References: 1. NIH Osteoporosis and Related Bone Diseases http://www.osteo.org 2. International Society for Clinical Densitometry http://www.iscd.org 3. National Osteoporosis Foundation http://www.nof.org Electronically Signed: Emory Sheppard MD at 11:00 EST Tel [phone], Service support , CC: Mihaela Hui Program Writer: Signed Mihaela Hui Work Phone: Start: 02-22-2017 End: 02-28-2017 SCREENING MAMM (CAD), BILAT Comments: See Note; NOTES: [facility] Imaging Services [address] [place] [id number] SCREENING MAMM (CAD), BILAT MR#: [id number] Acct: [id number] Name: DAVID HUBBARD Rep #: [id number] : 1945 F 71 From: Emory Sheppard MD PCP: Mihaela Hui Status: REG CLI Study: SCREENING MAMM (CAD), BILAT Date of Exam: 02/22/17 Exam# [id number] Ordering Dr: Mihaela Hui MAMMOGRAPHY - BILATERAL SCREENING REASON FOR EXAM: Female, 71 years old. Routine annual screening examination. PERTINENT HISTORY: Aunt with breast cancer. TECHNIQUE: Digital bilateral breast mich (3D mammographic acquisition) in the CC and MLO projections. 2-D mediolateral oblique (MLO) and craniocaudad (CC) views of both breasts were obtained. CAD: Full Field Digital Mammography with Computer Added Detection was performed. COMPARISON: Comparison is made with prior outside examination dated February 04, 2015. FINDINGS: Breast Composition: The breasts are heterogeneously dense, which may obscure small masses. There are no dominant masses or suspicious calcifications. No other significant abnormalities are identified. There has been no significant change since the prior study. HPBI/SCREENING MAMM (CAD), BILAT IMPRESSION: Stable bilateral screening mammogram. Yearly follow-up mammogram recommended. (A) ASSESSMENT CATEGORY: BIRADS Category 1: Negative. A letter regarding these results will be sent to the patient by the facility within 30 days. Approximately 10% of breast cancers are not detected by mammography. A normal mammogram should not delay biopsy of a clinically suspicious abnormality. [id number] Electronically Signed: Emory Sheppard MD at 12:02 EDT Tel [phone], Service support , CC: Mihaela Hui Program Writer: Signed Mihaela Hui Work Phone: Start: 09-13-2015 End: 09-13-2015 Spmtry w/vc expiratory paris w/wo mxml vol vntj _ Yue Hi Work Phone: Comment on above: see scanned document of test done to see results reviewed today with patient normal Start: 02-01-2015 End: 02-01-2015 Echocardiogram Complete Comments: See Note; NOTES: [facility] Cardiovascular Services [address] [place] [address] Echo Complete 02/01/15 0813 MR#: [id number] Acct: [id number] Name: DAVID HUBBARD Rep #: [id number] : 1945 69 From: Michael Tamayo MD Attending Dr: Yue Hi MD Status: REG CLI Ordering Dr: Yue Hi MD Date: 02/01/15 Location: [facility] Sex: F C Admitted: ADDENDUM by Michael Tamayo MD on 02/01/15 at 0813 Procedure This was a 2D Doppler, Color Flow transthoracic echocardiogram. Exam performed in department. Left Ventricle Normal LV size. Left ventricular systolic function is normal. The estimated ejection fraction is 60 %. No regional wall motion abnormalities noted. Right Ventricle Normal RV size. Normal systolic function. Atria Normal left atrium. Normal right atrium. Patent foramen ovale. Hypermobile atrial septum. Mitral Valve Normal mitral valve. Tricuspid Valve Normal tricuspid valve. Mild (1+) eccentric tricuspid valve insufficiency. Pulmonary artery systolic pressure is 24 mmHg. Aortic Valve Normal aortic valve. Pulmonic Valve Normal pulmonic valve. Great Vessels Normal aortic root. The pulmonary artery is normal size. Normal inferior vena cava. Pericardium/Pleural No pericardial effusion. Medication Performed a rapid injection of agitated mix of 9 cc saline and 1cc air to assess for atrial septal defect. MMode/2D Measurements AND Calculations LVIDd: 4.8 cm IVSd: 1.2 cm Ao root diam: 2.9 cm LAV(MOD-bp): 47.2 ml LVIDs: 1.9 cm LVPWd: 1.3 cm LAV(MOD-sp2): 39.2 ml RVDd: 2.9 cm FS: 60.1 % Ao root area: 6.7 cm2 LAV(MOD-sp4): 49.2 ml LA dimension: 3.1 cm LA A4 area: 18.7 cm2 RA A4 area: 13.6 cm2 Doppler Measurements AND Calculations MV E max flakita: Lat Peak E' Flakita: Med Peak E' Flakita: Ao V2 max: 75.1 cm/sec 10.4 cm/sec 6.3 cm/sec 146.6 cm/sec MV A max flakita: Ao max P.6 mmHg 97.3 cm/sec MV E/A: 0.77 LV V1 max: 118.2 cm/sec PA V2 max: 113.5 cm/sec TR max flakita: 238.3 cm/sec E/E' lat: 7.2 LV V1 max P.6 mmHg PA max P.1 mmHg TR max P.7 mmHg E/E' med: 11.9 Interpretation Summary Normal LV size. Left ventricular systolic function is normal. The estimated ejection fraction is 60 %. Mild (1+) eccentric tricuspid valve insufficiency. Patent foramen ovale. Hypermobile atrial septum. Ordering Physician: Yue Hi Performed By: Aubree Pena RVT 02/01/15 1321 Date cc: Yue Hi MD * Signed Procedure This was a 2D Doppler, Color Flow transthoracic echocardiogram. Exam performed in department. Left Ventricle Normal LV size. Left ventricular systolic function is normal. The estimated ejection fraction is 60 %. No regional wall motion abnormalities noted. Right Ventricle Normal RV size. Normal systolic function. Atria Normal left atrium. Normal right atrium. Patent foramen ovale. Mitral Valve Normal mitral valve. Tricuspid Valve Normal tricuspid valve. Mild (1+) eccentric tricuspid valve insufficiency. Pulmonary artery systolic pressure is 24 mmHg. Aortic Valve Normal aortic valve. Pulmonic Valve Normal pulmonic valve. Great Vessels Normal aortic root. The pulmonary artery is normal size. Normal inferior vena cava. Pericardium/Pleural No pericardial effusion. Medication Performed a rapid injection of agitated mix of 9 cc saline and 1cc air to assess for atrial septal defect. MMode/2D Measurements AND Calculations LVIDd: 4.8 cm IVSd: 1.2 cm Ao root diam: 2.9 cm LAV(MOD-bp): 47.2 ml LVIDs: 1.9 cm LVPWd: 1.3 cm LAV(MOD-sp2): 39.2 ml RVDd: 2.9 cm FS: 60.1 % Ao root area: 6.7 cm2 LAV(MOD-sp4): 49.2 ml LA dimension: 3.1 cm LA A4 area: 18.7 cm2 RA A4 area: 13.6 cm2 Doppler Measurements AND Calculations MV E max flakita: Lat Peak E' Flakita: Med Peak E' Flakita: Ao V2 max: 75.1 cm/sec 10.4 cm/sec 6.3 cm/sec 146.6 cm/sec MV A max flakita: Ao max P.6 mmHg 97.3 cm/sec MV E/A: 0.77 LV V1 max: 118.2 cm/sec PA V2 max: 113.5 cm/sec TR max flakita: 238.3 cm/sec E/E' lat: 7.2 LV V1 max P.6 mmHg PA max P.1 mmHg TR max P.7 mmHg E/E' med: 11.9 Interpretation Summary Normal LV size. Left ventricular systolic function is normal. The estimated ejection fraction is 60 %. Mild (1+) eccentric tricuspid valve insufficiency. Patent foramen ovale. Ordering Physician: Yue Hi Performed By: Aubree Pena RVT 02/01/15 1314 Date Michael Tamayo MD CC: Yue Hi MD Date Dictated: 02/01/15812 Date Transcribed: 02/01/15 131 Program Writer: Signed Yue Hi Work Phone: Start: 02-01-2015 End: 02-02-2015 Nuclear Stress Test - Treadmil Comments: See Note; NOT ES: [facility] Imaging Services [address] [place] [address] STRESS TEST REPORT 02/01/15 0901 MR#: [id number] Acct: [id number] Name: DAVID HUBBARD Rep #: [id number] : 1945 69 From: Michael Tamayo MD Primary Care: Yue Hi MD Status: REG CLI Ordering Dr: Yue Hi MD Service Date: 02/01/15 Order Date: 02/01/15 Sex: F C DATE OF SERVICE: 02/01/2015 A 69-year-old lady with a history of chest pain and bradycardia. Resting EKG demonstrates sinus bradycardia with a rate of 47 beats per minute. Normal intervals are noted. Resting blood pressure was 142/64. The patient exercised according to a regular Jameson protocol for a total duration of 6 minutes and 32 seconds. The maximum heart rate attained was 136 beats per minute, which was 98% of maximum predicted heart rate. The maximum workload attained was 7.8 METS. The patient maintained sinus rhythm throughout the recording. At rest, there were no ST or T-wave changes noted to suggest abnormal flow reserve or ischemia. At peak exercise, upsloping ST changes only were noted, which did not meet the criteria for ischemia. No clinical angina was noted. The test was terminated due to shortness of breath. Resting blood pressure was 146/64. Peak blood pressure was 214/70. Rate pressure product was 26,300. MYOCARDIAL PERFUSION PROTOCOL: 11.2 mCi of sestamibi was injected at rest. The patient exercised according to a regular Jameson protocol for 6 minutes and 32 seconds attaining 90% of maximum predicted heart rate and a workload of 7.8 METS. At peak exercise, 31.7 mCi of sestamibi was injected. Stress images were obtained. Stress and rest images were reconstructed and compared in the short axis, vertical long and horizontal. Gated images were also obtained. PERFUSION SPECT ANALYSIS: Review of the images demonstrated normal uptake of tracer noted in all areas of the myocardium. The resting images similarly demonstrated normal uptake of tracer noted in all areas of the myocardium. No areas of reversibility are noted to suggest ischemia. GATED SPECT ANALYSIS: The gated ejection fraction is noted to be 64%. CONCLUSION: 1. Exercise myocardial perfusion stress test with no evidence of ischemia at a moderate workload. 2. Preserved ejection fraction. 3. No infarct noted. Michael Tamayo MD T: NTS JOB: [id number] 02/02/15 0750 <Electronically signed by Michael Tamayo MD> Date Michael Tamayo MD CC: Yue Hi MD Date Dictated: 02/01/15900 Date Transcribed: 02/01/15900 Program Writer: Signed Yue Hi Work Phone: Start: 07-15-1970 End: 07-15-1970 Ligation of fallopian tube Katalina Thomas Start: 07-15-1969 Cyst of right breast (disorder) BRONSON BYNUM MD Arthroscopy of knee LUCAS BYNUM MD Breast biopsy Katalina Thomas Comment on above: right early benign Breast biopsy William Robertson Comment on above: right early benign Breast biopsy Katalina Thomas Comment on above: right early benign Breast biopsy William Robertson Comment on above: right early benign Breast biopsy Rupa Boudreaux Comment on above: right early benign Breast biopsy William Lara Comment on above: right early benign Breast biopsy William Lara Comment on above: right early s benign Colonoscopy BRONSON BYNUM MD CTS Katalina Thomas Comment on above: left hand 2003 CTS William Robertson Comment on above: left hand 2003 CTS Katalina Thomas Comment on above: left hand 2003 CTS William Robertson Comment on above: left hand 2003 CTS Rupa Boudreaux Comment on above: left hand 2003 CTS William Lara Comment on above: left hand 2003 CTS William Lara Comment on above: left hand 2003 D and C Katalina Thomas Comment on above: late D and C William Robertson Comment on above: D and C Katalina Thomas Comment on above: D and C William Robertson Comment on above: D mohan C Rupa Boudreaux Comment on above: D and C William Lara Comment on above: D and C William Lara Comment on above: Decompression of median nerve BRONSON BYNUM MD Right knee scoped Katalina Thomas Comment on above: 1999 Right knee scoped William masterson Comment on above: 1999 Right knee scoped Katalina Thomas Comment on above: 1999 Right knee scoped William Layton th Comment on above: 1999 Right knee scoped Rupa Hay rb Comment on above: 1999 Right knee scoped William Cancino is Comment on above: 1999 Right knee scoped William Cancino is Comment on above: 1999 Screening for osteoporosis Scree zafar for osteoporosis (Renamed from Encounter for screening for osteoporosis) Mihaela Munoz Navneet AUGUSTEN Ryann A Fast DO Work Phone: William Lara LPN Roxane Kinney CMA Plan of Treatment Date Care Activity Detail Author Start: 11-30-2024 Helicobacter pylori [Presence] in Stomach by urea breath test [facility] Start: 11-27-2024 CBC W Auto Differential panel - Blood [facility] Start: 11-27-2024 Comprehensive metabolic 2000 panel - Serum or Plasma [facility] Start: 11-27-2024 Evaluation of diagnostic study results [facility] Start: 08-28-2023 Patient referral [facility] Work Phone: Start: 11-08-2021 Procedure Education 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; [facility] Work Phone: Start: 09-06-2021 25 hydroxy includes fractions if performed [facility]; [facility] Work Phone: Start: 09-06-2021 Procedure Education 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; [facility] Work Phone: Start: 09-06-2021 Provider Instructions for Treatment [facility]; [facility] Work Phone: Start: 09-06-2021 Blood count complete auto&auto difrntl wbc [facility]; [facility] Work Phone: Start: 09-06-2021 Comprehensive metabolic panel [facility]; [facility] Work Phone: Start: 09-01-2021 25 hydroxy includes fractions if performed [facility]; [facility] Work Phone: Start: 09-01-2021 Comprehensive metabolic panel [facility]; [facility] Work Phone: Start: 09-01-2021 Lipid panel 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; [facility] Work Phone: Start: 09-01-2021 Blood count complete auto&auto difrntl wbc [facility]; [facility] Work Phone: Start: 09-01-2021 Assay of thyroid stimulating hormone tsh [facility]; [facility] Work Phone: Start: 08-22-2021 Procedure Education 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; [facility] Work Phone: Start: 03-01-2021 Procedure Education 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; [facility] Work Phone: Start: 03-01-2021 Provider Instructions for Treatment [facility]; [facility] Work Phone: Start: 08-31-2020 Procedure Education 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; [facility] Work Phone: Start: 08-31-2020 Provider Instructions for Treatment [facility]; [facility] Work Phone: Start: 06-06-2020 Procedure Education 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 Work Phone: Start: 03-16-2020 Lipid panel Lipid Panel (42500) 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 Work Phone: Comment on above: Aug 2020 Start: 03-16-2020 TSH Qn TSH (20493) 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 Work Phone: Comment on above: Aug 2020 Start: 03-16-2020 Blood count complete auto&auto difrntl wbc CBC, Platelets & Auto Diff (59461) [facility] Work Phone: Comment on above: Aug 2020 Start: 03-16-2020 Comprehensive metabolic panel Metabolic Panel, Comprehensive (61272) [facility] Work Phone: Comment on above: Aug 2020 Start: 03-16-2020 Procedure Education 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 Work Phone: Start: 03-16-2020 Provider Instructions for Treatment [facility] Work Phone: Start: 09-14-2019 Procedure Education 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 Work Phone: Start: 09-14-2019 Provider Instructions for Treatment [facility] Work Phone: Start: 08-18-2019 Procedure Education 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 Work Phone: Start: 08-18-2019 Provider Instructions for Treatment [facility] Work Phone: Start: 06-08-2019 Procedure Education 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 Work Phone: Start: 06-08-2019 Provider Instructions for Treatment [facility] Work Phone: Start: 10-07-2018 Urnls dip stick/tablet reagent auto microscopy URINALYSIS, W/ MICRO (62180) [facility] Work Phone: Start: 10-07-2018 Blood count manual cell count each CBC WITH MANUAL DIFF (00902) [facility] Work Phone: Start: 10-07-2018 TSH Qn TSH (THYROID STIMULATING HORMONE) (45051) [facility] Work Phone: Start: 10-07-2018 Lipid panel LIPID PANEL (29312) 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 Work Phone: Start: 10-07-2018 Comprehensive metabolic panel METABOLIC PANEL, COMPREHENSIVE (03259) [facility] Work Phone: Start: 09-29-2018 Blood count complete auto&auto difrntl wbc [facility] Work Phone: Start: 09-15-2018 Procedure Education 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 Work Phone: Start: 09-15-2018 Provider Instructions for Treatment [facility] Work Phone: Start: 09-12-2018 Virus centrifuge enhncd id imfluor stain ea Influenza A&B Viral Culture (09044) [facility] Work Phone: Start: 09-12-2018 Procedure Education 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 Work Phone: Start: 09-12-2018 Provider Instructions for Treatment [facility] Work Phone: Start: 09-12-2018 Iaadiadoo influenza 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 Work Phone: Start: 09-12-2018 Culture bct isol&prsmptv id isolate ea urine URINE JASON CULTURE-IDENTIFICATN (13055) [facility] Work Phone: Start: 09-12-2018 Iaadiadoo influenza 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 Work Phone: Start: 09-12-2018 Blood count complete auto&auto difrntl wbc [facility] Work Phone: Start: 09-12-2018 Comprehensive metabolic panel [facility] Work Phone: Start: 07-09-2018 Procedure Education 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 Work Phone: Start: 07-09-2018 Provider Instructions for Treatment [facility] Work Phone: Start: 12-13-2017 Urine albumin quantitative [facility] Work Phone: Start: 12-13-2017 Urinalysis qual/semiquant except immunoassays [facility] Work Phone: Start: 10-21-2017 Procedure Education 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 Work Phone: Start: 10-21-2017 Provider Instructions for Treatment [facility] Work Phone: Start: 10-18-2017 Procedure Education 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 Work Phone: Start: 10-18-2017 Provider Instructions for Treatment [facility] Work Phone: Start: 08-19-2017 Procedure Education 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 Work Phone: Start: 08-19-2017 Provider Instructions for Treatment [facility] Work Phone: Start: 04-12-2017 Procedure Education 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 Work Phone: Start: 04-12-2017 Provider Instructions for Treatment [facility] Work Phone: Start: 01-04-2017 Provider Instructions for Treatment [facility] Work Phone: Start: 11-26-2016 Provider Instructions for Treatment [facility] Work Phone: Start: 10-02-2016 Procedure Education 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 Work Phone: Start: 10-02-2016 Provider Instructions for Treatment [facility] Work Phone: Start: 09-05-2016 Provider Instructions for Treatment [facility] Work Phone: Start: 08-21-2016 Rheumatoid factor quantitative [facility] Work Phone: Start: 08-21-2016 Provider Instructions for Treatment [facility] Work Phone: Start: 02-13-2016 Procedure Education 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 Work Phone: Start: 02-13-2016 Provider Instructions for Treatment [facility] Work Phone: Start: 01-31-2016 Procedure Education 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 Work Phone: Start: 02-23-2015 Provider Instructions for Treatment [facility] Work Phone: Start: 01-17-2015 Blood count manual cell count each [facility] Work Phone: Comment on above: all these in six months (approximately) Start: 01-17-2015 Urnls dip stick/tablet reagent auto microscopy [facility] Work Phone: Start: 01-17-2015 Comprehensive metabolic panel [facility] Work Phone: Start: 01-17-2015 Lipid panel 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 Work Phone: Start: 01-17-2015 Procedure Education 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 Work Phone: Start: 12-28-2013 Urnls dip stick/tablet reagent auto microscopy [facility] Work Phone: Start: 12-28-2013 Urine albumin quantitative [facility] Work Phone: Start: 12-28-2013 Comprehensive metabolic panel [facility] Work Phone: Start: 12-28-2013 Lipid panel 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 Work Phone: Start: 12-28-2013 Blood count manual cell count each [facility] Work Phone: Start: 05-20-2013 Provider Instructions for Treatment [facility] Work Phone: Start: 04-21-2013 Patient Education 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 Work Phone: Start: 10-23-2012 Patient Education 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 Work Phone: Start: 10-14-2012 Provider Instructions for Treatment [facility] Work Phone: Start: 03-11-2012 Provider Instructions for Treatment [facility] Work Phone: Start: 02-07-2012 Urnls dip stick/tablet rgnt non-auto w/o micrscp [facility] Work Phone: Comment on above: do in 4-6weeks or so to recheck per msg from 01.07.12 Alanine aminotransfe rase [Enzymatic activity/volume] in Serum or Plasma [facility] Albumin [Mass/volume ] in Serum or Plasma [facility] Alkaline phosphatase [Enzymatic activity/volume] in Serum or Plasma [facility] Anion gap in Serum o r Plasma [facility] Bilirubin, total measurement [facility] BUN/Creatinine ratio [facility] Calcium [Mass/volume ] in Serum or Plasma [facility] Carbon dioxide, tota l [Moles/volume] in Central venous blood [facility] Creatinine [Mass/vol ume] in Serum or Plasma [facility] Erythrocyte mean corpuscular volume determination [facility] Glucose [Mass/volume ] in Serum or Plasma [facility] Helicobacter pylori [Presence] in Stomach by urea breath test [facility] Hematocrit [Volume Fraction] of Blood [facility] Hemoglobin [Mass/vol ume] in Blood [facility] Leukocytes [#/volume ] in Blood [facility] Mean corpuscular hemoglobin concentration determination [facility] Mean corpuscular hemoglobin determination [facility] Measurement of renal function [facility] Neutrophil count [facility] Neutrophil percent differential count [facility] Patient referral [facility] Work Phone: Platelets [#/volume] in Blood [facility] Potassium measurement [facility] Red blood cell count [facility] Red cell distributio n width determination [facility] Serum chloride measurement [facility] Sodium measurement [facility] Total protein measurement [facility] Urea nitrogen [Mass/volume] in Serum or Plasma [facility] Work Phone: [facility] Work Phone: [facility] Work Phone: [facility] Work Phone: [facility] Work Phone: [facility] Work Phone: [facility] Work Phone: [facility] Work Phone: [facility] Work Phone: [facility] Work Phone[facility] Work Phone: [facility] Work Phone: [facility] Work Phone: [facility] Work Phone: [facility] Work Phone: [facility] Work Phone: [facility] Work Phone: [facility] Work Phone: [facility] Work Phone: [facility] Work Phone: [facility] Work Phone: [facility] Work Phone: [facility] Work Phone: [facility] Work Phone: [facility] Work Phone: [facility] Work Phone: [facility] Work Phone: [facility] Work Phone: [facility] Work Phone: [facility] Work Phone: [facility] Work Phone: [facility] Immunizations Immunization Date Immunization Notes Care Provider Stephanie kohler 06-17-2024 Seasonal trivalent influenza vaccine, adjuvanted, preservative free Dr. Bronson Bynum MD Work Phone: [facility] 10-13-2020 Covid (Pfizer) Dr. Bronson Bynum Work Phone: [facility] 10-13-2020 COVID-Moderna (100 MCG/0.5 ML) Mihaela Chrissyesross ADULT NEUROPSYCHOLOGIST Work Phone: [facility]; [facility] Work Phone: 09-22-2020 Covid (Pfizer) Dr. Bronson Bynum Work Phone: [facility] 09-12-2020 COVID-Moderna (100 MCG/0.5 ML) Mihaela Loweesross ADULT NEUROPSYCHOLOGIST Work Phone: [facility]; [facility] Work Phone: Payers Date Payer Category Payer Unknown [id number] 2023 Self-pay [id number] 2023 Unknown [id number] 2021 Unknown [id number] 2018 Unknown [id number] 2016 Unknown [id number] 2010 Medicare [id number] 2010 Medicare [id number] 1945 Unknown [id number] 2.16.84 [id number] 1945 Unknown [id number] 2.16.8 40.1.709205.3.579.2.627 1945 Unknown [id number] 2.16.8 40.1.752577.3.579.2.627 1945 Unknown [id number] 2.16.8 40.1.966409.3.579.2.627 1945 Unknown [id number] 2.16.8 40.1.305769.3.579.2.627 1945 Unknown [id number] 2.16.8 40.1.186320.3.579.2.627 Unknown Unknown COMMERCIAL OTHER [id number] Unknown [id number] 2.16.8 40.1.028828.3.579.2.462 Unknown [id number] 2.16.8 40.1.798507.3.579.2.462 Unknown [id number] 2.16.8 40.1.094009.3.579.2.462 Unknown [id number] 2.16.8 40.1.407313.3.579.2.462 Unknown [id number] 2.16.8 40.1.428565.3.579.2.462 Unknown [id number] 2.16.8 40.1.773689.3.579.2.462 Unknown [id number] 2.16.8 40.1.202311.3.579.2.462 Unknown [id number] 2.16.8 40.1.694913.3.579.2.462 Unknown [id number] 2.16.8 40.1.507862.3.579.2.462 Unknown [id number] 2.16.8 40.1.392820.3.579.2.462 Unknown [id number] 2.16.8 40.1.111318.3.579.2.462 Unknown [id number] 2.16.8 40.1.396197.3.579.2.462 Unknown [id number] 2.16.8 40.1.762486.3.579.2.462 Unknown [id number] 2.16.8 40.1.570937.3.579.2.462 Unknown [id number] 2.16.8 40.1.259810.3.579.2.462 Unknown [id number] 2.16.8 40.1.761909.3.579.2.462 Unknown [id number] 2.16.8 40.1.410792.3.579.2.462 Unknown [id number] 2.16.8 40.1.951326.3.579.2.462 Social History Date Type Detail Facility Caffeine Use Never smoker [facility] Work Phone: Comment on above: 5 cups qd Current Work/Study Status: Retired. 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 [facility] Work Phone: Living Situation: Lives with spouse. [facility] Work Phone: Comment on above: Tobacco use: Never smoker. [facility] Work Phone: Retired. [facility]; [facility] Work Phone: [facility] not exercise[facility] Work Phone: [facility] Work Phone: Never smoker. [facility]; [facility] Work Phone: Start: 08-27-2022 End: 08-28-2023 Tobacco smoking status NHIS Unknown if ever smoked [facility] Start: 1945 Sex Assigned At Female W [facility] Start: 06-13-2019 End: 08-28-2023 Tobacco smoking status Never smoked tobacco (finding) [facility] Sex Assigned At Sex [facility] Functional Status Date Assessment Result Facility 06-05-2024 Functional Status Awake, Resting [facility] 06-05-2024 Functional Status Maintained [facility] 03-29-2024 Functional Status ID band on, Call device within reach, Bed in low position, Wheels locked, Bedside Cart Locked [facility] 01-09-2024 Functional Status Independent [facility] 09-04-2023 Functional Status Objective: Observation: no obvious muscle or joint deformities, Cardiovascular screen: BP: 120/80 HR: 57 O2 sat: 96% Special tests: Drop arm: - , HK: +L, Painful arc: +L, infraspinatus: - L [facility] Mental Status Date Assessment Result Facility 06-05-2024 Mental Status Oriented x 4 [facility] 06-05-2024 Mental Status [facility] 03-29-2024 Mental Status Oriented x 4 [facility] 01-09-2024 Mental Status Oriented x 4 [facility] Clinical Notes 01-09-2024 to 09-16-2024 Note Date & Type Note Facility 09-16-2024 Evaluation note Diagnosis Onset Date Resolution Essential hypertension chronic [facility] 2024 1:24pm GERD (gastroesophageal reflux disease) chronic September 16, 2024 1:24pm Helicobacter pylori gastritis chronic September 16, 2024 1:24pm Osteoarthritis chronic September 16, 2024 1:24pm Atypical chest pain acute November 122024 1:55pm Essential hypertension chronic Ma y 2024 1:55pm GERD (gastroesophageal reflux disease) chronic November 27, 2024 1:55pm Helicobacter pylori gastritis chronic November 27, 2024 1:55pm [facility] Work Phone: 1(821) 605-221011-22-2024 Evaluation + Plan noteExtracted from: Title:Clinical Document Author:TYLER JOHNSON Date:06/05/24 JOHNSON ADMISSION HISTORY AN D PHYSICIAL CHIEF COMPLAINT: HISTORY OF PRESENT ILLNESS: REVIEW OF SYSTEMS: ACTIVE PROBLEMS: (2) Arthritis ([id number]) Hypertension ([id number]) MEDICATIONS: Active Inpt Meds: None Active PRN Meds: None One Time Meds: None Active IV Meds: Lactated Ringers Infusion 1,000 mL (LR 1,000 mL) Start: 06/05/24 8:09:00 EST, Rate: 50 mL/hr, 06/05/24 8:09:00 EST ALLERGIES: (1) NKA FAMILY HISTORY: SOCIAL HISTORY: PHYSICAL EXAM: VITALS: [id number](kg) 06/05 08:1636.4--[id number]--30/22 82.0 24 Hr Tmax: 36.4 at 06/05 08:16 36 Hr Tmax: 36.4 at 06/05 08:16 Vital Signs are the last 5 in the past 48 hours. Weights display the last 5 within 7 days. Initial Wt: 06/05 82.0 kg 180 lb Current Wt: 06/05 82.0 kg 180 lb GENERAL: HEENT: CARDIOVASCULAR: RESPIRATORY: ABDOMEN: EXREMETIES: NEUROLOGICAL: PSYCHIATRIC: LABS: No 36hr Lab Data DIAGNOSTICS: IMPRESSION: PLAN: History and Physical Update I have examined the patient; reviewed the H&P and there are no changes to the H&P unless noted below. [facility] 11-22-2024 Hospital Discharge instructions Patient Education 06/05/2024 10:09:10 Helicobacter Pylori Infection Helicobacter Pylori Infection Helicobacter pylori infection is a bacterial infection in the stomach. Long-term (chronic) infection can cause stomach irritation (gastritis), ulcers in the stomach (gastric ulcers), and ulcers in the upper part of the intestine (duodenal ulcers). Having this infection may also increase your risk of stomach cancer and a type of white blood cell cancer (lymphoma) that affects the stomach. What are the causes? This infection is caused by the Helicobacter pylori (H. pylori) bacteria. Many healthy people have this bacteria in their stomach lining. The bacteria may also spread from person to person through contact with stool (feces) or saliva. It is not known why some people develop ulcers, gastritis, or cancer from the bacteria. What increases the risk? You are more likely to develop this condition if you: Have family members with the infection. Live with many other people, such as in a dormitory. Are of , , or descent. What are the signs or symptoms? Most people with this infection do not have any symptoms. If you do have symptoms, they may include: Heartburn. Stomach pain. Nausea. Vomiting. The vomit may be bloody because of ulcers. Loss of appetite. Bad breath. How is this diagnosed? This condition may be diagnosed based on: Your symptoms and medical history. A physical exam. Blood tests. Stool tests. A breath test. A procedure that involves placing a tube with a camera on the end of it down your throat to examineyour stomach and upper intestine (upper endoscopy). Removing and testing a tissue sample from the stomach lining (biopsy). A biopsy may be taken duringan upper endoscopy. How is this treated? This condition is treated by taking a combination of medicines (triple therapy) for several weeks. Triple therapy includes one medicine to reduce the amount of acid in your stomach and two types of antibiotic medicines. This treatment may reduce your risk of cancer. You may need to be tested for H. pylori again after treatment. In some cases, the treatment may need to be repeated if your treatment did not get rid of all the bacteria. Follow these instructions at home: Take vvyq-fpy-vuvavqf and prescription medicines only as told by your health care provider. Take your antibiotics as told by your health care provider. Do not stop taking the antibiotics evenif you start to feel better. Return to your normal activities as told by your health care provider. Ask your health care provider what activities are safe for you. Take steps to prevent future infections: ?Wash your hands often with soap and water. If soap and water are not available, use hand property management supervisor. ?Do not eat food or drink water that may have had contact with stool or saliva. Keep all follow-up visits as told by your health care provider. This is important. You may need tests to make sure your treatment worked. Contact a health care provider if your symptoms: Do not get better with treatment. Return after treatment. Summary Helicobacter pylori infection is a stomach infection caused by the Helicobacter pylori (H. pylori) bacteria. This infection can cause stomach irritation (gastritis), ulcers in the stomach (gastric ulcers), and ulcers in the upper part of the intestine (duodenal ulcers). This condition is treated by taking a combination of medicines (triple therapy) for several weeks. Take your antibiotics as told by your health care provider. Do not stop taking the antibiotics evenif you start to feel better. This information is not intended to replace advice given to you by your health care provider. Make sure you discuss any questions you have with your health care provider. Document Released: 10/22/2016 Document Revised: 10/22/2019 Document Reviewed: 06/24/2018 [employer] Patient Education 2019 [employer] 06/05/2024 09:56:27 Esophagogastroduodenoscopy, Care After (70284) Esophagogastroduodenoscopy, Care After Refer to this sheet in the next few weeks. These instructions provide you with information about caring for yourself after your procedure. Your health care provider may also give you more specific instructions. Your treatment has been planned according to current medical practices, but problems sometimes occur. Call your health care provider if you have any problems or questions after your procedure. What can I expect after the procedure? After the procedure, it is common to have: A sore throat. Nausea. Bloating. Dizziness. Fatigue. Follow these instructions at home: Do not eat or drink anything until the numbing medicine (local anesthetic) has worn off and your gag reflex has returned. You will know that the local anesthetic has worn off when you can swallow comfortably. Do not drive for 24 hours if you received a medicine to help you relax (sedative). If your health care provider took a tissue sample for testing during the procedure, make sure to get your test results. This is your responsibility. Ask your health care provider or the department performing the test when your results will be ready. Keep all follow-up visits as told by your health care provider. This is important. Contact a health care provider if: You cannot stop coughing. You are not urinating. You are urinating less than usual. Get help right away if: You have trouble swallowing. You cannot eat or drink. You have throat or chest pain that gets worse. You are dizzy or light-headed. You faint. You have nausea or vomiting. You have chills. You have a fever. You have severe abdominal pain. You have black, tarry, or bloody stools. This information is not intended to replace advice given to you by your health care provider. Make sure you discuss any questions you have with your health care provider. Document Released: 06/17/2013 Document Revised: 12/06/2016 Document Reviewed: 05/24/2016 [employer] Interactive Patient Education 2019 [employer] 06/05/2024 09:56:23 Nausea and Vomiting, Adult Nausea and Vomiting, Adult Nausea is the feeling that you have an upset stomach or that you are about to vomit. Vomiting is when stomach contents are thrown up and out of the mouth as a result of nausea. Vomiting can make you feel weak and cause you to become dehydrated. Dehydration can make you feel tired and thirsty, cause you to have a dry mouth, and decrease how often you urinate. Older adults and people with other diseases or a weak disease-fighting system (immune system) are at higher risk for dehydration. It is important to treat your nausea and vomiting as told by your health care provider. Follow these instructions at home: Watch your symptoms for any changes. Tell your health care provider about them. Follow these instructions to care for yourself at home. Eating and drinking Take an oral rehydration solution (ORS). This is a drink that is sold at pharmacies and retail stores. Drink clear fluids slowly and in small amounts as you are able. Clear fluids include water, ice chips, low-calorie sports drinks, and fruit juice that has water added (diluted fruit juice). Eat bland, hhnc-yj-zevjxc foods in small amounts as you are able. These foods include bananas, applesauce, rice, lean meats, toast, and crackers. Avoid fluids that contain a lot of sugar or caffeine, such as energy drinks, sports drinks, and soda. Avoid alcohol. Avoid spicy or fatty foods. General instructions Take qfyn-gjn-drbyemb and prescription medicines only as told by your health care provider. Drink enough fluid to keep your urine pale yellow. Wash your hands often using soap and water. If soap and water are not available, use hand property management supervisor. Make sure that all people in your household wash their hands well and often. Rest at home while you recover. Watch your condition for any changes. Breathe slowly and deeply when you feel nauseated. Keep all follow-up visits as told by your health care provider. This is important. Contact a health care provider if: Your symptoms get worse. You have new symptoms. You have a fever. You cannot drink fluids without vomiting. Your nausea does not go away after 2 days. You feel light-headed or dizzy. You have a headache. You have muscle cramps. You have a rash. You have pain while urinating. Get help right away if: You have pain in your chest, neck, arm, or jaw. You feel extremely weak or you faint. You have persistent vomiting. You have vomit that is bright red or looks like black coffee grounds. You have bloody or black stools or stools that look like tar. You have a severe headache, a stiff neck, or both. You have severe pain, cramping, or bloating in your abdomen. You have difficulty breathing, or you are breathing very quickly. Your heart is beating very quickly. Your skin feels cold and clammy. You feel confused. You have signs of dehydration, such as: ?Dark urine, very little urine, or no urine. ?Cracked lips. ?Dry mouth. ?Sunken eyes. ?Sleepiness. ?Weakness. These symptoms may represent a serious problem that is an emergency. Do not wait to see if the symptoms will go away. Get medical help right away. Call your local emergency services (911 in the [place] Do not drive yourself to the hospital. Summary Nausea is the feeling that you have an upset stomach or that you are about to vomit. As nausea getsworse, it can lead to vomiting. Vomiting can make you feel weak and cause you to become dehydrated. Follow instructions from your health care provider about eating and drinking to prevent dehydration. Take wfal-bcl-zvjgrll and prescription medicines only as told by your health care provider. Contact your health care provider if your symptoms get worse, or you have new symptoms. Keep all follow-up visits as told by your health care provider. This is important. This information is not intended to replace advice given to you by your health care provider. Make sure you discuss any questions you have with your health care provider. Document Released: 07/01/2006 Document Revised: 10/23/2019 Document Reviewed: 12/09/2018 HangIt Patient Education 2020 [employer]. 06/05/2024 09:56:09 Moderate Conscious Sedation, Adult, Care After Moderate Conscious Sedation, Adult, Care After These instructions provide you with information about caring for yourself after your procedure. Your health care provider may also give you more specific instructions. Your treatment has been plannedaccording to current medical practices, but problems sometimes occur. Call your health care provider if you have any problems or questions after your procedure. What can I expect after the procedure? After your procedure, it is common: To feel sleepy for several hours. To feel clumsy and have poor balance for several hours. To have poor judgment for several hours. To vomit if you eat too soon. Follow these instructions at home: For at least 24 hours after the procedure: Do not: ?Participate in activities where you could fall or become injured. ?Drive. ?Use heavy machinery. ?Drink alcohol. ?Take sleeping pills or medicines that cause drowsiness. ?Make important decisions or sign legal documents. ?Take care of children on your own. Rest. Eating and drinking Follow the diet recommended by your health care provider. If you vomit: ?Drink water, juice, or soup when you can drink without vomiting. ?Make sure you have little or no nausea before eating solid foods. General instructions Have a responsible adult stay with you until you are awake and alert. Take avto-dbv-mzvhmdc and prescription medicines only as told by your health care provider. If you smoke, do not smoke without supervision. Keep all follow-up visits as told by your health care provider. This is important. Contact a health care provider if: You keep feeling nauseous or you keep vomiting. You feel light-headed. You develop a rash. You have a fever. Get help right away if: You have trouble breathing. This information is not intended to replace advice given to you by your health care provider. Make sure you discuss any questions you have with your health care provider. Document Released: 04/21/2014 Document Revised: 06/13/2018 Document Reviewed: 10/20/2016 HangIt Patient Education 2020 [employer]. Follow Up Care 06/01/2024 07:34:04 With:TYLER JOHNSON MD Address: [address] [facility] [address] [place] [address] [phone] When: only if needed [facility] 11-22-2024 Note Discharge Instructions Thank you for allowing [facility] to assist you with your healthcare needs. The following is importantdischarge information regarding your hospital visit. Your Care Team BRONSON BYNUM MD What to do next Follow Up Appointments Follow Up with TYLER JOHNSON MD When:Only if needed Where:[address] [facility] [address] [place] [address] [phone] Medications Please ask your primary doctor or pharmacist before taking any other medication not listed, including over the counter drugs, herbal medications, vitamins and or supplements as they may interact withyour home medications. What How Much When Instructions Last Dose Unchanged albuterol (Albuterol (Eqv- ProAir HFA) 90 mcg/ inh inhalation aerosol) 2 puff(s) Unchanged cetirizine (Zyrtec 10 mg oral tablet) 1 tab(s) by mouth Once a day Unchanged famotidine (Pepcid 20 mg oral tablet) 1 tab(s) by mouth Once a day Unchanged hydrochlorothiazide (hydrochlorothiazide 12.5 mg oral tablet) 1 tab(s) by mouth Every day Unchanged meloxicam (meloxicam 15 mg oral tablet) Unchanged montelukast (Singulair) Once a day Unchanged omeprazole (NF) (PriLOSEC 40 mg oral delayed release capsule (NF)) 1 cap by mouth Once a day Please take this list to your next doctor s visit. Bring all medications you take, including over the counter medications, herbals and other supplements with you to your doctor s visit. Patients and families are reminded to discard old lists and to update any records with all medication providers or retail pharmacies. Education Materials Helicobacter Pylori Infection Helicobacter pylori infection is a bacterial infection in the stomach. Long-term (chronic) infection can cause stomach irritation (gastritis), ulcers in the stomach (gastric ulcers), and ulcers in the upper part of the intestine (duodenal ulcers). Having this infection may also increase your risk of stomach cancer and a type of white blood cell cancer (lymphoma) that affects the stomach. What are the causes? This infection is caused by the Helicobacter pylori (H. pylori) bacteria. Many healthy people have this bacteria in their stomach lining. The bacteria may also spread from person to person through contact with stool (feces) or saliva. It is not known why some people develop ulcers, gastritis, or cancer from the bacteria. What increases the risk? You are more likely to develop this condition if you: Have family members with the infection. Live with many other people, such as in a dormitory. Are of , , or descent. What are the signs or symptoms? Most people with this infection do not have any symptoms. If you do have symptoms, they may include: Heartburn. Stomach pain. Nausea. Vomiting. The vomit may be bloody because of ulcers. Loss of appetite. Bad breath. How is this diagnosed? This condition may be diagnosed based on: Your symptoms and medical history. A physical exam. Blood tests. Stool tests. A breath test. A procedure that involves placing a tube with a camera on the end of it down your throat to examineyour stomach and upper intestine (upper endoscopy). Removing and testing a tissue sample from the stomach lining (biopsy). A biopsy may be taken duringan upper endoscopy. How is this treated? This condition is treated by taking a combination of medicines (triple therapy) for several weeks. Triple therapy includes one medicine to reduce the amount of acid in your stomach and two types of antibiotic medicines. This treatment may reduce your risk of cancer. You may need to be tested for H. pylori again after treatment. In some cases, the treatment may need to be repeated if your treatment did not get rid of all the bacteria. Follow these instructions at home: Take tiln-adc-pkbuodx and prescription medicines only as told by your health care provider. Take your antibiotics as told by your health care provider. Do not stop taking the antibiotics evenif you start to feel better. Return to your normal activities as told by your health care provider. Ask your health care provider what activities are safe for you. Take steps to prevent future infections: ? Wash your hands often with soap and water. If soap and water are not available, use hand property management supervisor. ? Do not eat food or drink water that may have had contact with stool or saliva. Keep all follow-up visits as told by your health care provider. This is important. You may need tests to make sure your treatment worked. Contact a health care provider if your symptoms: Do not get better with treatment. Return after treatment. Summary Helicobacter pylori infection is a stomach infection caused by the Helicobacter pylori (H. pylori) bacteria. This infection can cause stomach irritation (gastritis), ulcers in the stomach (gastric ulcers), and ulcers in the upper part of the intestine (duodenal ulcers). This condition is treated by taking a combination of medicines (triple therapy) for several weeks. Take your antibiotics as told by your health care provider. Do not stop taking the antibiotics evenif you start to feel better. This information is not intended to replace advice given to you by your health care provider. Make sure you discuss any questions you have with your health care provider. Document Released: 10/22/2016 Document Revised: 10/22/2019 Document Reviewed: 06/24/2018 [employer]It Patient Education 2020 [employer]. Esophagogastroduodenoscopy, Care After Refer to this sheet in the next few weeks. These instructions provide you with information about caring for yourself after your procedure. Your health care provider may also give you more specific instructions. Your treatment has been planned according to current medical practices, but problems sometimes occur. Call your health care provider if you have any problems or questions after your procedure. What can I expect after the procedure? After the procedure, it is common to have: A sore throat. Nausea. Bloating. Dizziness. Fatigue. Follow these instructions at home: Do not eat or drink anything until the numbing medicine (local anesthetic) has worn off and your gag reflex has returned. You will know that the local anesthetic has worn off when you can swallow comfortably. Do not drive for 24 hours if you received a medicine to help you relax (sedative). If your health care provider took a tissue sample for testing during the procedure, make sure to get your test results. This is your responsibility. Ask your health care provider or the department performing the test when your results will be ready. Keep all follow-up visits as told by your health care provider. This is important. Contact a health care provider if: You cannot stop coughing. You are not urinating. You are urinating less than usual. Get help right away if: You have trouble swallowing. You cannot eat or drink. You have throat or chest pain that gets worse. You are dizzy or light-headed. You faint. You have nausea or vomiting. You have chills. You have a fever. You have severe abdominal pain. You have black, tarry, or bloody stools. This information is not intended to replace advice given to you by your health care provider. Make sure you discuss any questions you have with your health care provider. Document Released: 06/17/2013 Document Revised: 12/06/2016 Document Reviewed: 05/24/2016 [employer]It Interactive Patient Education 2019 [employer]. Nausea and Vomiting, Adult Nausea is the feeling that you have an upset stomach or that you are about to vomit. Vomiting is when stomach contents are thrown up and out of the mouth as a result of nausea. Vomiting can make you feel weak and cause you to become dehydrated. Dehydration can make you feel tired and thirsty, cause you to have a dry mouth, and decrease how often you urinate. Older adults and people with other diseases or a weak disease-fighting system (immune system) are at higher risk for dehydration. It is important to treat your nausea and vomiting as told by your health care provider. Follow these instructions at home: Watch your symptoms for any changes. Tell your health care provider about them. Follow these instructions to care for yourself at home. Eating and drinking Take an oral rehydration solution (ORS). This is a drink that is sold at pharmacies and retail stores. Drink clear fluids slowly and in small amounts as you are able. Clear fluids include water, ice chips, low-calorie sports drinks, and fruit juice that has water added (diluted fruit juice). Eat bland, jmdo-wt-julked foods in small amounts as you are able. These foods include bananas, applesauce, rice, lean meats, toast, and crackers. Avoid fluids that contain a lot of sugar or caffeine, such as energy drinks, sports drinks, and soda. Avoid alcohol. Avoid spicy or fatty foods. General instructions Take inml-kvh-rjqudze and prescription medicines only as told by your health care provider. Drink enough fluid to keep your urine pale yellow. Wash your hands often using soap and water. If soap and water are not available, use hand property management supervisor. Make sure that all people in your household wash their hands well and often. Rest at home while you recover. Watch your condition for any changes. Breathe slowly and deeply when you feel nauseated. Keep all follow-up visits as told by your health care provider. This is important. Contact a health care provider if: Your symptoms get worse. You have new symptoms. You have a fever. You cannot drink fluids without vomiting. Your nausea does not go away after 2 days. You feel light-headed or dizzy. You have a headache. You have muscle cramps. You have a rash. You have pain while urinating. Get help right away if: You have pain in your chest, neck, arm, or jaw. You feel extremely weak or you faint. You have persistent vomiting. You have vomit that is bright red or looks like black coffee grounds. You have bloody or black stools or stools that look like tar. You have a severe headache, a stiff neck, or both. You have severe pain, cramping, or bloating in your abdomen. You have difficulty breathing, or you are breathing very quickly. Your heart is beating very quickly. Your skin feels cold and clammy. You feel confused. You have signs of dehydration, such as: ? Dark urine, very little urine, or no urine. ? Cracked lips. ? Dry mouth. ? Sunken eyes. ? Sleepiness. ? Weakness. These symptoms may represent a serious problem that is an emergency. Do not wait to see if the symptoms will go away. Get medical help right away. Call your local emergency services (911 in the [place] Do not drive yourself to the hospital. Summary Nausea is the feeling that you have an upset stomach or that you are about to vomit. As nausea getsworse, it can lead to vomiting. Vomiting can make you feel weak and cause you to become dehydrated. Follow instructions from your health care provider about eating and drinking to prevent dehydration. Take ptav-rbg-kipclvq and prescription medicines only as told by your health care provider. Contact your health care provider if your symptoms get worse, or you have new symptoms. Keep all follow-up visits as told by your health care provider. This is important. This information is not intended to replace advice given to you by your health care provider. Make sure you discuss any questions you have with your health care provider. Document Released: 07/01/2006 Document Revised: 10/23/2019 Document Reviewed: 12/09/2018 HangIt Patient Education 2020 [employer] Moderate Conscious Sedation, Adult, Care After These instructions provide you with information about caring for yourself after your procedure. Your health care provider may also give you more specific instructions. Your treatment has been plannedaccording to current medical practices, but problems sometimes occur. Call your health care provider if you have any problems or questions after your procedure. What can I expect after the procedure? After your procedure, it is common: To feel sleepy for several hours. To feel clumsy and have poor balance for several hours. To have poor judgment for several hours. To vomit if you eat too soon. Follow these instructions at home: For at least 24 hours after the procedure: Do not: ? Participate in activities where you could fall or become injured. ? Drive. ? Use heavy machinery. ? Drink alcohol. ? Take sleeping pills or medicines that cause drowsiness. ? Make important decisions or sign legal documents. ? Take care of children on your own. Rest. Eating and drinking Follow the diet recommended by your health care provider. If you vomit: ? Drink water, juice, or soup when you can drink without vomiting. ? Make sure you have little or no nausea before eating solid foods. General instructions Have a responsible adult stay with you until you are awake and alert. Take lbip-mwz-kdrqeec and prescription medicines only as told by your health care provider. If you smoke, do not smoke without supervision. Keep all follow-up visits as told by your health care provider. This is important. Contact a health care provider if: You keep feeling nauseous or you keep vomiting. You feel light-headed. You develop a rash. You have a fever. Get help right away if: You have trouble breathing. This information is not intended to replace advice given to you by your health care provider. Make sure you discuss any questions you have with your health care provider. Document Released: 04/21/2014 Document Revised: 06/13/2018 Document Reviewed: 10/20/2016 HangIt Patient Education 2020 [employer]. Additional Information VACCINATE! IT SAVES LIVES! Members of the community who have not yet received the COVID-19 vaccine and would like to receive it can visit one of [facility] vaccine clinics. There are many vaccine clinic locations within the [facility]. For locations and available times, please visit [email or web address].[place].gov/. It is important to note that some COVID mobile vaccine clinics are held outdoors and may be canceled in rainy or stormy conditions. To learn more about pediatric vaccinations (ages 5-11), we invite you to visit the [facility] webpage. [email or web address]/pages/[email or web address]-[email or web address]-[email or web address] stions.htmlTo learn more about the COVID-19 vaccine, we invite you to visit the CDC website for a list of frequently asked questions.https://www.cdc.gov/coronavirus/2019-ncov/vaccines/faq.html [facility] Patient Portal Access Instructions: Stay connected with your healthcare team and access your personal medical information anytime with the [facility] Patient Portal. Please follow the directions below to create your [facility] account: 1.Access the email account you provided upon registration to the hospital/physician office.2.Look for an invitation email from [facility].3.Open the email and access the invitation link: AcceptInvitation to [facility].4.Fill in the required esqueda to create your account. To access your account, visit [email or web address]. Click the blue button labeled Access Patient Portal and then log in with the username and password that you created in the steps above. You will be able to view your test results, lab results, a summary of your visits, upcoming appointments and more. There is also a convenient messaging option where you can send secure messages to your p rovider. In addition, you will have the ability to download any documents or summaries to your computer and/or send the information securely to a physician. Remember that your healthcare information is confidential, so carefully consider who you will allowto register on the [facility] Patient Portal for access to your information. You can also access the [facility] Patient Portal on the [facility] lyn. Simply click on Patient Portal and then log into your account. If you would like to receive a full copy of your medical records, please contact the [facility] Medical Records Department by calling [phone], Saturday through Saturday between 8 a.m. and 4:30 p.m. HOW TO SAFELY DISPOSE OF PRESCRIPTION MEDICATIONS Please use one of the following methods to safely dispose of your unused medications. 1.Use a drug disposal kit: the drug disposal pouch allows you to safely discard your old and unuseddrugs. Ask your nurse to give you one when you are discharged.2.Visit a local take-back location: Many local pharmacies and police departments have programs that collect old and unwanted prescriptiondrugs. Call your local pharmacy or go to http://bit.[employer]/9B3Lq8s to find one close to you.3.Make use of household items: Use cat litter or old coffee grounds to dispose medications if other options arenot available. Mix your drugs with these household products, seal them in an airtight container andthrow it into the garbage. Call [facility]: [phone] to be sure your drugs can be disposed of in this way. Some medicines may require a different approach.4.Never flush your medications down the toilet. IF YOU HAVE BEEN PRESCRIBED AN OPIOID FOR PAIN If you have been prescribed an opioid (such as hydrocodone, oxycodone or morphine), it is critical to understand the possible side effects and risks of opioid pain medications. Even when taken as directed, opioids can have several side effects including: Tolerance, meaning you might need to take more of a medication for the same pain relief. Nausea, vomiting and/or constipation. Sleepiness, dizziness, dry mouth, confusion, depression or itching. Physical dependence, meaning you have withdrawal symptoms when a medication is stopped, can develop within a few days. KNOW YOUR RESPONSIBILITIES It is important to know exactly how much and how often to take the opioid pain medications you are prescribed. Never take opioids in higher amounts or more often than prescribed. Do not combine opioids with alcohol or other drugs that cause drowsiness, such as benzodiazepines, also known as benzos, including diazepam and alprazolam, muscle relaxants or sleep aids. Never sell or share prescription opioids. This is illegal. Store opioids in a secure place and out of reach of others (including children, family, friends and visitors). The last page of this document has been signed and retained as a CHART COPY. Signatures Patient Education Materials Helicobacter Pylori Infection Esophagogastroduodenoscopy, Care After (33622) Nausea and Vomiting, Adult Moderate Conscious Sedation, Adult, Care After Medication Leaflets My discharge plan and instructions have been reviewed and explained to me and ISTEVIE BARBARA J understand my current condition and have read and understand these discharge instructions. I have received a written copy of the plan/instructions. If I have questions, I am aware that I should contactmy doctor. 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: Date/Time: Relationship to Patient: Witness Name/Signature: Date/Time: [facility]11-22-2024 Anesthesiology Consult note Patient: DAVID HUBBARD Age: 78 years Sex: Female : 1945 Associated Diagnoses: None Author: CHILO TIWARI Assessment Postanesthesia assessment Vitals: Vital signs from flowsheet : Vital Signs 06/05/2024 9:50 EST Respiratory Rate - Anes 0 br/min br/min 06/05/2024 9:45 EST Heart Rate Monitored 56 bpm bpm Respiratory Rate - Anes 14 br/min br/min Systolic Blood Pressure Non-Invasive 123 mmHg mmHg Diastolic Blood Pressure Non-Invasive 81 mmHg mmHg 06/05/2024 9:40 EST Heart Rate Monitored 53 bpm bpm Respiratory Rate - Anes 0 br/min br/min Systolic Blood Pressure Non-Invasive 161 mmHg mmHg Diastolic Blood Pressure Non-Invasive 68 mmHg mmHg 06/05/2024 8:16 EST Temperature Temporal Artery 36.4 DegC Peripheral Pulse Rate 61 bpm Respiratory Rate 16 br/min Systolic Blood Pressure Non-Invasive 142 mmHg HI Diastolic Blood Pressure Non-Invasive 74 mmHg . Mental status: alert & oriented x 4. Respiratory function: lungs are clear to auscultation. Respiratory support: none. CV function: Normal rate. Cardiovascular support: none. Pain. Nausea status: see nursing documentation of medications. Postoperative hydration status: within normal limits. Digitally Signed by CHILO TIWARI on 06/05/2024 09:53 AM [facility]11-22-2024 Note Date of Service 06/05/2024 Procedure Name EGD with biopsy Consent Taken before procedure Indication Patient with chest pain and reflux Location [facility] Pre-Procedure Exam Patient with chest pain and reflux Procedural Sedation Anesthesia provided a MAC Technique Patient was brought to the endoscopy suite and placed left shoulder down. The endoscope was passed visualization of the esophagus the proximal mid esophagus. Normal Was 36 cm from the incisors and intact. Evidence of Lemus's mucosa no evidence of a hiatal hernia. Was easy insufflated there was some erythema in the prepyloric area the duodenum was unremarkable retroflexion performed the stomach showed no evidence of a hiatal hernia. Biopsies in the stomach were taken for testing H. pylori. The stomach was decompressed and the scope was withdrawn there wereno mucosal abnormalities of the esophagus the patient tolerated procedure well. Post-Procedure Exam EGD with biopsy Findings Gastritis Complications None apparent Total Time Proximately 15 minutes Assessment/Plan Orders: Lactated Ringers Infusion 1,000 mL(LR 1,000 mL), 1000 mL, Intravenous Bedrest, 06/05/24 9:50:00 EST, Strict, continuous, Constant order, Lying on side until alert or as ordered Bedrest, 06/05/24 9:50:00 EST, Strict, continuous, Constant order, Lying on side until alert or as ordered Call Parameters, 06/05/24 9:50:00 EST, Notify for vomiting, severe pain, signs of bleeding, severe abdominal pain, distention or rigidity, Constant order Communication Order (scheduled), 06/05/24 8:09:00 EST, Once, 06/05/24 8:09:00 EST, Pathology TissueRequest Communication Order (scheduled), 06/05/24 8:09:00 EST, Once, 06/05/24 8:09:00 EST, Urine Test or waiver for women of child bearing age Communication Order (scheduled), 06/05/24 8:09:00 EST, Once, 06/05/24 8:09:00 EST, Fasting Blood Sugar priot to procedure of patient is diabetic Diet Order, 06/05/24 9:50:00 EST, Start Meal: Next meal, Clear Liquid Diet, Post exam or after gag reflex returns if EGD, Constant Order, : N/A, : N/A Discharge, 06/05/24 8:09:00 EST, Discharged to: Home, when able to ambulate and after being seen byphysician Discharge Activity, NO activity restrictions, 06/05/24 9:50:00 EST Discharge Diet, Follow the post-operative/post-procedure diet instructions provided by your physician's office., 06/05/24 9:50:00 EST Discharge Wound Care, Follow the post-operative/post-procedure wound care instructions provided by your physician's office., 06/05/24 9:50:00 EST Post Procedure Assessment, 06/05/24 9:50:00 EST, Stop Date 06/05/24 9:50:00 EST, [facility] until Glenys Score of 12 or Preprocedure Sign Consent, 06/05/24 8:09:00 EST, Once, For EGD Vital Signs, 06/05/24 9:50:00 EST, q15min, 1 hour(s), 06/05/24 10:45:00 EST Vital Signs, 06/05/24 9:50:00 EST, q30min, 1 hour(s), 06/05/24 10:30:00 EST Vital Signs PRN, 06/05/24 9:50:00 EST, PRN order Follow Up/Recommendation Follow-up testing for H. pylori continue the patient on a PPI daily Digitally Signed by TYLER JOHNSON MD on 06/05/2024 09:53 AM [facility]11-22-2024 Note JOHNSON ADMISSION HISTORY AND PHYSICIAL CHIEF COMPLAINT: HISTORY OF PRESENT ILLNESS: REVIEW OF SYSTEMS: ACTIVE PROBLEMS: (2) Arthritis (4257782) Hypertension ([id number]) MEDICATIONS: Active Inpt Meds: None Active PRN Meds: None One Time Meds: None Active IV Meds: Lactated Ringers Infusion 1,000 mL (LR 1,000 mL) Start: 06/05/24 8:09:00 EST, Rate: 50 mL/hr, 06/05/24 8:09:00 EST ALLERGIES: (1) NKA FAMILY HISTORY: SOCIAL HISTORY: PHYSICAL EXAM: VITALS: [id number](kg) 06/05 08:1636.4--328708--00/22 82.0 24 Hr Tmax: 36.4 at 06/05 08:16 36 Hr Tmax: 36.4 at 06/05 08:16 Vital Signs are the last 5 in the past 48 hours. Weights display the last 5 within 7 days. Initial Wt: 06/05 82.0 kg 180 lb Current Wt: 06/05 82.0 kg 180 lb GENERAL: HEENT: CARDIOVASCULAR: RESPIRATORY: ABDOMEN: EXREMETIES: NEUROLOGICAL: PSYCHIATRIC: LABS: No 36hr Lab Data DIAGNOSTICS: IMPRESSION: PLAN: History and Physical Update I have examined the patient; reviewed the H&P and there are no changes to the H&P unless noted below. Digitally Signed by TYLER JOHNSON MD on 06/05/2024 09:40 AM [facility]11-22-2024 Anesthesiology Consult note Patient: DAVID HUBBARD Age: 78 years Sex: Female : 1945 Associated Diagnoses: None Author: CHILO TIWARI APRN-SALESPERSON SHOES Preoperative Information Time of last food or liquid consumption: 06/04/2024 23:00:00 Anesthesia history Patient's history: negative. Family's history: negative. Review of Systems Ear/Nose/Mouth/Throat: Negative except as documented in history of present illness. Respiratory: Negative except as documented in history of present illness. Cardiovascular: Negative except as documented in history of present illness. Gastrointestinal: Negative except as documented in history of present illness. Genitourinary: Negative except as documented in history of present illness. Endocrine: Negative except as documented in history of present illness. Musculoskeletal: Negative except as documented in history of present illness. Integumentary: Negative except as documented in history of present illness. Neurologic: Negative except as documented in history of present illness. Health Status Allergies: Allergic Reactions (Selected) NKA, Allergies (1) ActiveSeverityReaction NKANone Documented Current medications: (Selected) Inpatient Medications Ordered LR 1,000 mL: 50 mL/hr, Intravenous Prescriptions Prescribed Pepcid 20 mg oral tablet: 20 mg, 1 tab(s), Oral, qDay, 30 tab(s), 0 Refill(s) PriLOSEC 40 mg oral delayed release capsule (NF): 40 mg, 1 cap(s), Oral, qDay, 30 cap(s), 0 Refill(s) Documented Medications Documented Albuterol (Eqv-ProAir HFA) 90 mcg/inh inhalation aerosol: 2 puff(s), 0 Refill(s) Singulair: qDay, 0 Refill(s) Zyrtec 10 mg oral tablet: 10 mg, 1 tab(s), Oral, qDay, 0 Refill(s) hydrochlorothiazide 12.5 mg oral tablet: 12.5 mg, 1 tab(s), Oral, Daily, 0 Refill(s) meloxicam 15 mg oral tablet: 0 Refill(s), Medications (1) Active Scheduled: (0) Continuous: (1) Lactated Ringers Infusion 1,000 mL 1,000 mL, Intravenous, 50 mL/hr PRN: (0) Problem list: Medical Arthritis / SNOMED CT 2068532 / Confirmed Hypertension / SNOMED CT 13145395 / Confirmed, Active Problems (2) Arthritis Hypertension Histories Past Medical History: Active Arthritis (7064698) Hypertension (11466572) Family History: Diabetes mellitus Sister HTN - Hypertension Mother Procedure history: Cyst of right breast ([id number]) in 1970 at 24 Years. Arthroscopy of knee (697561779). Carpal tunnel release (824051973). Colonoscopy (698523342). Social History: Social & Psychosocial Habits Alcohol 06/05/2024 Use: Never Substance Abuse 06/05/2024 Use: Never Tobacco 06/05/2024 Tobacco Use: Never (less than 100 in l 06/05/2024 Tobacco Use: Never (less than 100 in l Home/Environment 06/05/2024 Domestic Concerns None Nutrition/Health 06/05/2024 Type of diet: Regular Caffeine intake amount: 2-3 daily Physical Examination Vital Signs 06/05/2024 8:16 EST Temperature Temporal Artery 36.4 DegC Peripheral Pulse Rate 61 bpm Respiratory Rate 16 br/min Systolic Blood Pressure Non-Invasive 142 mmHg HI Diastolic Blood Pressure Non-Invasive 74 mmHg Vital Signs (last 24 hrs) Last Charted Temp Nqfnljfm56.4 DegC (JUN 05 08:16) SBPH 142 mmHg (JUN 05 08:16) DBP74 mmHg (JUN 05 08:16) BMI26.7 (JUN 05 08:16) Measurements from flowsheet : Measurements 06/05/2024 8:16 EST Height 175.26 cm Admission Weight 82 kg Weight Method Stated [place] Body Weight 66.20 kg BSA Admission 1.98 Body Mass Index 26.7 kg/m2 Pain assessment: Pain Assessment 06/05/2024 8:16 EST Primary Pain Intensity 0 Pain Scale Type 0-10 Pain scale . General: Alert and oriented. Airway: Normal neck range of motion. Mallampati classification: II (soft palate, fauces, uvula visible). Head: Normocephalic. Dentition Evaluation: Dentures, upper, Dentures, partial plate. Neck: Full range of motion. Respiratory: Lungs are clear to auscultation. Cardiovascular: Normal rate. Heart Sounds: Normal. Gastrointestinal: Soft. Musculoskeletal Normal range of motion. Integumentary: Intact, Warm, Dry. Neurologic: Alert, Oriented. Review / Management Results review: No qualifying data available , Lab results 06/05/2024 9:30 EST SN - PP - Body Position Lateral Right Side-up Standard Intra-op 06/05/2024 9:30 EST SN - GCD - Post-operative Diagnosis GASTROESOPHAGEAL REFLUX DISEASE 06/05/2024 9:30 EST SN - GCD - Case Level OPD Level 3 06/05/2024 9:30 EST SN - CAt - Case Attendee SN - CAt - Case Attendee SN - CAt - Case Attendee SN - CAt - Case Attendee SN - CAt - Role Performed Mechanic Sound Technician 1 SN - CAt - Role Performed Podiatric Medicine Professor 1 06/05/2024 9:30 EST SN - CAt - Case Attendee SN - CAt - Case Attendee SN - CAt - Case Attendee SN - CAt - Case Attendee SN - CAt - Role Performed Primary Surgeon SN - CAt - Role Performed SALESPERSON SHOES 06/05/2024 8:27 EST Hand Right 06/05/2024 22 gauge Peripheral IV Activity: Insert new site Peripheral IV Dressing Condition: Clean, Dry, Intact Peripheral IV Dressing Activity: Applied Peripheral IV Line Status/Patency: Flushes easily Peripheral IV Site Condition: No complications Peripheral IV Equipment: Extension set Peripheral IV Number of Attempts: 1 06/05/2024 8:18 EST Allergies Yes Consent Form Signed Yes History & Physical On Chart Yes NPO Status Maintained Patient ID Band on and Verified Yes Implants Verified Yes Pacemaker/AICD Verified Yes Site Verified by Patient/Family Yes Last Fluid Intake 06/04/2024 23:00 Last Food Intake 06/04/2024 21:00 06/05/2024 8:16 EST Designated Person #1 We May Share PHI Designated Person #1 We May Share PHI Designated Person #1 Relationship Daughter Designated Person #2 We May Share PHI peg [phone] Designated Person #2 Relationship Sibling Height 175.26 cm Admission Weight 82 kg Weight Method Stated [place] Body Weight 66.20 kg BSA Admission 1.98 Body Mass Index 26.7 kg/m2 Temperature Temporal Artery 36.4 DegC Peripheral Pulse Rate 61 bpm Respiratory Rate 16 br/min Systolic Blood Pressure Non-Invasive 142 mmHg HI Diastolic Blood Pressure Non-Invasive 74 mmHg Primary Pain Intensity 0 Pain Scale Type 0-10 Pain scale Respirations Unlabored Respiratory Pattern Regular Oxygen Saturation 95 % Abdomen Description Non-distended, Symmetric Abdomen Palpation Non-Tender Bowel Sounds All Quadrants Present Status N/A Skin Temperature Warm Skin Description Normal for ethnicity Skin Integrity Intact Characteristics of Speech Clear Level of Consciousness Alert Strength All Extremities Strong Tone All Extremities Normal Sensation All Extremities Intact Right Lower Extremity Sensation Numbness Affect/Behavior Appropriate, Calm, Cooperative Orientation Oriented x 4 Sensory Deficits None Infectious Disease Symptoms Patient states no symptoms Infectious Disease Recent Exposure No Alcohol and Drug Use No Employee of Institutional Living No Health Care Employee No History of Exposure to TB No History of Positive Chest X-Ray for TB No History of Positive TB Skin Test No Homeless No Known Immunosuppression No Recent Immigrant No Resident of Institutional Living No Bloody Sputum No Fatigue No Fever No Loss of Appetite No Night Sweats No Persistent Cough > 3 Weeks No Weight Loss No Barriers to Learning None evident Teaching Method Explanation Preferred Spoken Language Burkinan Preferred Written Language Burkinan Patient's Current Physicians edilberto whittington. Discharge To, Anticipated Home independently Activity Status ADL Awake, Resting Standard Safety ID band on, Call device within reach, Bed in low position, Wheels locked, Upper/Half-Length side-rails up, Phone within reach, personal items within reach, Visitor at bedside, Safety level maintained Prev Test Positive/Diagnosis w/COVID-19 No Current Quarantine/Isolated any Illness No Any Contact with Sick Animals/Birds No Traveled Anywhere in Last 30 Days No N/A Personal Devices, Patient Valuables Dentures, upper, Glasses Admission Note-Nursing Procedure/Therapy Intake . Assessment and Plan [place] [employer] Anesthesiologists (ASA) physical status classification: Class II. Anesthetic Preoperative Plan Premedication: intravenous. Anesthetic technique: MAC. Induction: intravenously. Maintenance airway: Mask. Risks discussed: nausea, vomiting, headache, sore throat, dental injury, hypotension, allergic reaction, serious complications. Informed consent: signed by patient. Digitally Signed by CHILO TIWARI on 06/05/2024 09:31 AM [facility]09-15-2024 Hospital Discharge instructions Patient Education 03/29/2024 15:31:22 Chest Pain, Uncertain Cause Uncertain Causes of Chest Pain Chest pain can happen for a number of reasons. Sometimes the cause can't be determined. If your condition does not seem serious, and your pain does not appear to be coming from your heart, your healthcare provider may recommend watching it closely. Sometimes the signs of a serious problem take moretime to appear. Many problems not related to your heart can cause chest pain. These include: Musculoskeletal. Costochondritis is an inflammation of the tissues around the ribs that can occur from trauma or overuse injuries, or a strain of the muscles of the chest wall Respiratory. Pneumonia, collapsed lung (pneumothorax), or inflammation of the lining of the chest and lungs (pleurisy) Gastrointestinal. Esophageal reflux, heartburn, ulcers, or gallbladder disease Anxiety and panic disorders Nerve compression and inflammation Rare miscellaneous problems such as aortic aneurysm (a swelling of the large artery coming out of the heart) or pulmonary embolism (a blood clot in the lungs) Home care After your visit, follow these recommendations: Rest today and avoid strenuous activity. Take any prescribed medicine as directed. Be aware of any recurrent chest pain and notice any changes Follow-up care Follow up with your healthcare provider if you do not start to feel better within 24 hours, or as advised. Call 911 Call 911 if any of these occur: A change in the type of pain: if it feels different, becomes more severe, lasts longer, or begins to spread into your shoulder, arm, neck, jaw or back Shortness of breath or increased pain with breathing Weakness, dizziness, or fainting Rapid heart beat Crushing sensation in your chest When to seek medical advice Call your healthcare provider right away if any of the following occur: Cough with dark colored sputum (phlegm) or blood Fever of 100.4 F (38 C) or higher, or as directed by your healthcare provider Swelling, pain or redness in one leg [id number] [employer]. [address] [place] [address]. All rights reserved. This information is not intended as a substitute for professional medical care. Always follow yourhealthcare professional's instructions. 03/29/2024 15:31:15 Hypertension, Established Established High Blood Pressure High blood pressure (hypertension) is a chronic disease. Often, healthcare providers don t know what causes it. But it can be caused by certain health conditions and medicines. If you have high blood pressure, you may not have any symptoms. If you do have symptoms, they may include headache, dizziness, changes in your vision, chest pain, and shortness of breath. But even without symptoms, high blood pressure that s not treated raises your risk for heart attack, heart failure, and stroke. High blood pressure is a serious health risk and shouldn t be ignored. Blood pressure measurements are given as 2 numbers. Systolic blood pressure is the upper number. This is the pressure when the heart contracts. Diastolic blood pressure is the lower number. This is the pressure when the heart relaxes between beats. You will see your blood pressure readings written together. For example, a person with a systolic pressure of 118 and a diastolic pressure of 78 will have 118/78 written in the medical record. Blood pressure is categorized as normal, elevated, or stage 1 or stage 2 high blood pressure: Normal blood pressure is systolic of less than 120 and diastolic of less than 80 (120/80) Elevated blood pressure is systolic of 120 to 129 and diastolic less than 80 Stage 1 high blood pressure is systolic is 130 to 139 or diastolic between 80 to 89 Stage 2 high blood pressure is when systolic is 140 or higher or the diastolic is 90 or higher Home care If you have high blood pressure, follow these home care guidelines to help lower your blood pressure. If you are taking medicines for high blood pressure, these methods may reduce or end your need for medicines in the future. Start a weight-loss program if you are overweight. Cut back on how much salt you get in your diet. Here s how to do this: oDon t eat foods that have a lot of salt. These include olives, pickles, smoked meats, and salted potato chips. oDon t add salt to your food at the table. oUse only small amounts of salt when cooking. Start an exercise program. Talk with your healthcare provider about the type of exercise program that would be best for you. It doesn't have to be hard. Even brisk walking for 20 minutes 3 times a week is a good form of exercise. Don t take medicines that stimulate the heart. This includes many urar-lax-lhjliel cold and sinus decongestant pills and sprays, as well as diet pills. Check the warnings about high blood pressure onthe label. Before buying any tvyn-uwn-vsxctol medicines or supplements, always ask the pharmacist about the product's potential interaction with your high blood pressure and your high blood pressure medicines. Stimulants such as amphetamine or cocaine could be deadly for someone with high blood pressure. Never take these. Limit how much caffeine you get in your diet. Switch to caffeine-free products. Stop smoking. If you are a long-time smoker, this can be hard. Talk to your healthcare provider about medicines and nicotine replacement options to help you. Also, enroll in a stop-smoking program tomake it more likely that you will quit for good. Learn how to handle stress. This is an important part of any program to lower blood pressure. Learnabout relaxation methods like meditation, yoga, or biofeedback. If your provider prescribed medicines, take them exactly as directed. Missing doses may cause your blood pressure get out of control. If you miss a dose or doses, check with your healthcare provider or pharmacist about what to do. Consider buying an automatic blood pressure machine to check your blood pressure at home. Ask your provider for a recommendation. You can get one of these at most pharmacies. The [place] [employer] recommends the following guidelines for home blood pressure monitoring: Don't smoke or drink coffee for 30 minutes before taking your blood pressure. Go to the bathroom before the test. Relax for 5 minutes before taking the measurement. Sit with your back supported (don't sit on a couch or soft chair); keep your feet on the floor uncrossed. Place your arm on a solid flat surface (like a table) with the upper part of the arm at heartlevel. Place the middle of the cuff directly above the bend of the elbow. Check the monitor's instruction manual for an illustration. Take multiple readings. When you measure, take 2 to 3 readings one minute apart and record all of the results. Take your blood pressure at the same time every day, or as your healthcare provider recommends. Record the date, time, and blood pressure reading. Take the record with you to your next medical appointment. If your blood pressure monitor has a built-in memory, simply take the monitor with you to your next appointment. Call your provider if you have several high readings. Don't be frightened by a single high blood pressure reading, but if you get several high readings, check in with your healthcare provider. Note: When blood pressure reaches a systolic (top number) of 180 or higher OR diastolic (bottom number) of 110 or higher, seek emergency medical treatment. Follow-up care You will need to see your healthcare provider regularly. This is to check your blood pressure and to make changes to your medicines. Make a follow-up appointment as directed. Bring the record of yourhome blood pressure readings to the appointment. When to seek medical advice Call your healthcare provider right away if any of these occur: Blood pressure reaches a systolic (upper number) of 180 or higher OR a diastolic (bottom number) of110 or higher Chest pain or shortness of breath Severe headache Throbbing or rushing sound in the ears Nosebleed Sudden severe pain in your belly (abdomen) Extreme drowsiness, confusion, or fainting Dizziness or spinning sensation (vertigo) Weakness of an arm or leg or one side of the face You have problems speaking or seeing [id number] [employer]. [address] [place] [address], [place] [address]. All rights reserved. This information is not intended as a substitute for professional medical care. Always follow yourhealthcare professional's instructions. 03/29/2024 14:47:12 GERD (Adult) GERD (Adult) The esophagus is a tube that carries food from the mouth to the stomach. A valve (the LES, lower esophageal sphincter) at the lower end of the esophagus prevents stomach acid from flowing upward. When this valve doesn't work properly, stomach contents may repeatedly flow back up (reflux) into the es ophagus. This is called gastroesophageal reflux disease (GERD). GERD can irritate the esophagus. Itcan cause problems with pain, swallowing or breathing. In severe cases, GERD can cause recurrent pneumonia (from aspiration or breathing in particles) or other serious problems. Symptoms of reflux include burning, pressure or sharp pain in the upper abdomen or mid to lower chest. The pain can spread to the neck, back, or shoulder. There may be belching, an acid taste in the back of the throat, chronic cough, or sore throat, or hoarseness. GERD symptoms often occur during the day after a big meal. They can also occur at night when lying down. Home care Lifestyle changes can help reduce symptoms. If needed, your healthcare provider may prescribe medicines. Symptoms often improve with treatment, but if treatment is stopped, the symptoms often return after a few months. So most persons with GERD will need to continue treatment or get treatment on and off. Lifestyle changes Limit or avoid fatty, fried, and spicy foods, as well as coffee, chocolate, mint, and foods with high acid content such as tomatoes and citrus fruit and juices (orange, grapefruit, lemon). Don t eat large meals, especially at night. Frequent, smaller meals are best. Don't lie down right after eating. And don t eat anything 3 hours before going to bed. Don't drink alcohol or smoke. As much as possible, stay away from second hand smoke. If you are overweight, losing weight will reduce symptoms. Don't wear tight clothing around your stomach area. If your symptoms occur during sleep, use a foam wedge to elevate your upper body (not just your head.) Or, place 4 blocks under the head of your bed. Or use 2 bed risers under your bedframe. Medicines If needed, medicines can help relieve the symptoms of GERD and prevent damage to the esophagus. Discuss a medicine plan with your healthcare provider. This may include one or more of the following medicines: Antacids to help neutralize the normal acids in your stomach. Acid blockers (Histamine or H2 blockers) to decrease acid production. Acid inhibitors (proton pump inhibitors PPIs) to decrease acid production in a different way than the blockers. They may work better, but can take a little longer to take effect. Take an antacid 30 to 60 minutes after eating and at bedtime, but not at the same time as an acid magui. Try not to take medicines such as ibuprofen and aspirin. If you are taking aspirin for your heart or other medical reasons, talk to your healthcare provider about stopping it. Follow-up care Follow up with your healthcare provider or as advised by our staff. When to seek medical advice Call your healthcare provider if any of the following occur: Stomach pain gets worse or moves to the lower right abdomen (appendix area) Chest pain appears or gets worse, or spreads to the back, neck, shoulder, or arm An fbvh-biw-lomvryu trial of medicine doesn't relieve your symptoms Weight loss that can't be explained Trouble or pain swallowing Frequent vomiting (can t keep down liquids) Blood in the stool or vomit (red or black in color) Feeling weak or dizzy Fever of 100.4 F (38 C) or higher, or as directed by your healthcare provider [id number] [employer]. [address] [place] [address], [place] [address]. All rights reserved. This information is not intended as a substitute for professional medical care. Always follow yourhealthcare professional's instructions. Follow Up Care 03/29/2024 12:54:56 With:TYLER JOHNSON Address: [address] [facility] [address] [place] [address]- [phone] Business (1) When:2-4 days Comments:Follow-up as neededFollow-up for endoscopy if any reflux symptoms persistPrecautions as describedReturn for symptoms as described With:BRONSON BYNUM MD Address: [address] [place] [address]- [phone] When:2-4 days Comments:Schedule appointment as soon as possibleReturn to ED if symptoms worsenPrecautions as describedReturn for symptoms as describedFollow-up for recheck and blood pressure [facility] 09-15-2024 Emergency department Discharge summary Discharge Instructions Thank you for allowing [facility] to assist you with your healthcare needs. The following is importantdischarge information regarding your hospital visit. Diagnosis from Today's Visit Chest pain GERD - Gastro-esophageal reflux disease What to Do Next Instructions from Your Care Team You were evaluated in the Emergency Department today for chest pain. Your evaluation has shown no signs of medical conditions requiring emergent intervention at this time, however we recommend that you follow up with your primary care physician or your [employer] as soon as possible for further te sting as an outpatient. Please schedule an appointment for follow up with your primary care physician as soon as possible. Return to the Emergency Department if you experience worsening or uncontrolled chest pain, shortness of breath, light headedness, feeling faint, nausea, vomiting, or any other concerning symptoms. Thank you for choosing us for your care. No qualifying data available. Post Acute Orders No qualifying data available. You Need to Schedule the Following Appointments Follow Up with TYLER JOHNSON When:Within 2-4 days Where:[address] [facility] [address] [place] [address]- [phone] Business (1) Additional Information: Follow-up as needed Follow-up for endoscopy if any reflux symptoms persist Precautions as described Return for symptoms as described Follow Up with BRONSON BYNUM MD When:Within 2-4 days Where:[address] [place] [address]- [phone] Additional Information: Schedule appointment as soon as possible Return to ED if symptoms worsen Precautions as described Return for symptoms as described Follow-up for recheck and blood pressure Allergies NKA Medications Please ask your primary doctor or pharmacist before taking any other medication not listed, including over the counter drugs, herbal medications, vitamins and or supplements as they may interact withyour home medications. What How Much When Instructions Last Dose New famotidine (Pepcid 20 mg oral tablet) 1 tab(s) by mouth Once a day Printed Prescription Unchanged albuterol (Albuterol (Eqv-ProAir HFA) 90 mcg/ inh inhalation aerosol) 2 puff(s) Unchanged cetirizine (Zyrtec 10 mg oral tablet) 1 tab(s) by mouth Once a day Unchanged hydrochlorothiazide (hydrochlorothiazide 12.5 mg oral tablet) 1 tab(s) by mouth Every day Unchanged meloxicam (meloxicam 15 mg oral tablet) Unchanged montelukast (Singulair) Once a day Unchanged omeprazole (NF) (PriLOSEC 40 mg oral delayed release capsule (NF)) 1 cap by mouth Once a day Please take this list to your next doctor s visit. Bring all medications you take, including over the counter medications, herbals and other supplements with you to your doctor s visit. Patients and families are reminded to discard old lists and to update any records with all medication providers or retail pharmacies. Education Materials Uncertain Causes of Chest Pain Chest pain can happen for a number of reasons. Sometimes the cause can't be determined. If your condition does not seem serious, and your pain does not appear to be coming from your heart, your healthcare provider may recommend watching it closely. Sometimes the signs of a serious problem take moretime to appear. Many problems not related to your heart can cause chest pain. These include: Musculoskeletal. Costochondritis is an inflammation of the tissues around the ribs that can occur from trauma or overuse injuries, or a strain of the muscles of the chest wall Respiratory. Pneumonia, collapsed lung (pneumothorax), or inflammation of the lining of the chest and lungs (pleurisy) Gastrointestinal. Esophageal reflux, heartburn, ulcers, or gallbladder disease Anxiety and panic disorders Nerve compression and inflammation Rare miscellaneous problems such as aortic aneurysm (a swelling of the large artery coming out of the heart) or pulmonary embolism (a blood clot in the lungs) Home care After your visit, follow these recommendations: Rest today and avoid strenuous activity. Take any prescribed medicine as directed. Be aware of any recurrent chest pain and notice any changes Follow-up care Follow up with your healthcare provider if you do not start to feel better within 24 hours, or as advised. Call 911 Call 911 if any of these occur: A change in the type of pain: if it feels different, becomes more severe, lasts longer, or begins to spread into your shoulder, arm, neck, jaw or back Shortness of breath or increased pain with breathing Weakness, dizziness, or fainting Rapid heart beat Crushing sensation in your chest When to seek medical advice Call your healthcare provider right away if any of the following occur: Cough with dark colored sputum (phlegm) or blood Fever of 100.4 F (38 C) or higher, or as directed by your healthcare provider Swelling, pain or redness in one leg [id number] [employer]. [address] [place] [address]. All rights reserved. This information is not intended as a substitute for professional medical care. Always follow yourhealthcare professional's instructions. Established High Blood Pressure High blood pressure (hypertension) is a chronic disease. Often, healthcare providers don t know what causes it. But it can be caused by certain health conditions and medicines. If you have high blood pressure, you may not have any symptoms. If you do have symptoms, they may include headache, dizziness, changes in your vision, chest pain, and shortness of breath. But even without symptoms, high blood pressure that s not treated raises your risk for heart attack, heart failure, and stroke. High blood pressure is a serious health risk and shouldn t be ignored. Blood pressure measurements are given as 2 numbers. Systolic blood pressure is the upper number. This is the pressure when the heart contracts. Diastolic blood pressure is the lower number. This is the pressure when the heart relaxes between beats. You will see your blood pressure readings written together. For example, a person with a systolic pressure of 118 and a diastolic pressure of 78 will have 118/78 written in the medical record. Blood pressure is categorized as normal, elevated, or stage 1 or stage 2 high blood pressure: Normal blood pressure is systolic of less than 120 and diastolic of less than 80 (120/80) Elevated blood pressure is systolic of 120 to 129 and diastolic less than 80 Stage 1 high blood pressure is systolic is 130 to 139 or diastolic between 80 to 89 Stage 2 high blood pressure is when systolic is 140 or higher or the diastolic is 90 or higher Home care If you have high blood pressure, follow these home care guidelines to help lower your blood pressure. If you are taking medicines for high blood pressure, these methods may reduce or end your need for medicines in the future. Start a weight-loss program if you are overweight. Cut back on how much salt you get in your diet. Here s how to do this: oDon t eat foods that have a lot of salt. These include olives, pickles, smoked meats, and salted potato chips. oDon t add salt to your food at the table. oUse only small amounts of salt when cooking. Start an exercise program. Talk with your healthcare provider about the type of exercise program that would be best for you. It doesn't have to be hard. Even brisk walking for 20 minutes 3 times a week is a good form of exercise. Don t take medicines that stimulate the heart. This includes many nbis-ehr-gvaaafq cold and sinus decongestant pills and sprays, as well as diet pills. Check the warnings about high blood pressure onthe label. Before buying any iatx-tzs-ogtggfa medicines or supplements, always ask the pharmacist about the product's potential interaction with your high blood pressure and your high blood pressure medicines. Stimulants such as amphetamine or cocaine could be deadly for someone with high blood pressure. Never take these. Limit how much caffeine you get in your diet. Switch to caffeine-free products. Stop smoking. If you are a long-time smoker, this can be hard. Talk to your healthcare provider about medicines and nicotine replacement options to help you. Also, enroll in a stop-smoking program tomake it more likely that you will quit for good. Learn how to handle stress. This is an important part of any program to lower blood pressure. Learnabout relaxation methods like meditation, yoga, or biofeedback. If your provider prescribed medicines, take them exactly as directed. Missing doses may cause your blood pressure get out of control. If you miss a dose or doses, check with your healthcare provider or pharmacist about what to do. Consider buying an automatic blood pressure machine to check your blood pressure at home. Ask your provider for a recommendation. You can get one of these at most pharmacies. The [place] [employer] recommends the following guidelines for home blood pressure monitoring: Don't smoke or drink coffee for 30 minutes before taking your blood pressure. Go to the bathroom before the test. Relax for 5 minutes before taking the measurement. Sit with your back supported (don't sit on a couch or soft chair); keep your feet on the floor uncrossed. Place your arm on a solid flat surface (like a table) with the upper part of the arm at heartlevel. Place the middle of the cuff directly above the bend of the elbow. Check the monitor's instruction manual for an illustration. Take multiple readings. When you measure, take 2 to 3 readings one minute apart and record all of the results. Take your blood pressure at the same time every day, or as your healthcare provider recommends. Record the date, time, and blood pressure reading. Take the record with you to your next medical appointment. If your blood pressure monitor has a built-in memory, simply take the monitor with you to your next appointment. Call your provider if you have several high readings. Don't be frightened by a single high blood pressure reading, but if you get several high readings, check in with your healthcare provider. Note: When blood pressure reaches a systolic (top number) of 180 or higher OR diastolic (bottom number) of 110 or higher, seek emergency medical treatment. Follow-up care You will need to see your healthcare provider regularly. This is to check your blood pressure and to make changes to your medicines. Make a follow-up appointment as directed. Bring the record of [facility] blood pressure readings to the appointment. When to seek medical advice Call your healthcare provider right away if any of these occur: Blood pressure reaches a systolic (upper number) of 180 or higher OR a diastolic (bottom number) of110 or higher Chest pain or shortness of breath Severe headache Throbbing or rushing sound in the ears Nosebleed Sudden severe pain in your belly (abdomen) Extreme drowsiness, confusion, or fainting Dizziness or spinning sensation (vertigo) Weakness of an arm or leg or one side of the face You have problems speaking or seeing [id number] [employer]. [address] [place] [address]. All rights reserved. This information is not intended as a substitute for professional medical care. Always follow yourhealthcare professional's instructions. GERD (Adult) The esophagus is a tube that carries food from the mouth to the stomach. A valve (the LES, lower esophageal sphincter) at the lower end of the esophagus prevents stomach acid from flowing upward. When this valve doesn't work properly, stomach contents may repeatedly flow back up (reflux) into the es ophagus. This is called gastroesophageal reflux disease (GERD). GERD can irritate the esophagus. Itcan cause problems with pain, swallowing or breathing. In severe cases, GERD can cause recurrent pneumonia (from aspiration or breathing in particles) or other serious problems. Symptoms of reflux include burning, pressure or sharp pain in the upper abdomen or mid to lower chest. The pain can spread to the neck, back, or shoulder. There may be belching, an acid taste in the back of the throat, chronic cough, or sore throat, or hoarseness. GERD symptoms often occur during the day after a big meal. They can also occur at night when lying down. Home care Lifestyle changes can help reduce symptoms. If needed, your healthcare provider may prescribe medicines. Symptoms often improve with treatment, but if treatment is stopped, the symptoms often return after a few months. So most persons with GERD will need to continue treatment or get treatment on and off. Lifestyle changes Limit or avoid fatty, fried, and spicy foods, as well as coffee, chocolate, mint, and foods with high acid content such as tomatoes and citrus fruit and juices (orange, grapefruit, lemon). Don t eat large meals, especially at night. Frequent, smaller meals are best. Don't lie down right after eating. And don t eat anything 3 hours before going to bed. Don't drink alcohol or smoke. As much as possible, stay away from second hand smoke. If you are overweight, losing weight will reduce symptoms. Don't wear tight clothing around your stomach area. If your symptoms occur during sleep, use a foam wedge to elevate your upper body (not just your head.) Or, place 4 blocks under the head of your bed. Or use 2 bed risers under your bedframe. Medicines If needed, medicines can help relieve the symptoms of GERD and prevent damage to the esophagus. Discuss a medicine plan with your healthcare provider. This may include one or more of the following medicines: Antacids to help neutralize the normal acids in your stomach. Acid blockers (Histamine or H2 blockers) to decrease acid production. Acid inhibitors (proton pump inhibitors PPIs) to decrease acid production in a different way than the blockers. They may work better, but can take a little longer to take effect. Take an antacid 30 to 60 minutes after eating and at bedtime, but not at the same time as an acid magui. Try not to take medicines such as ibuprofen and aspirin. If you are taking aspirin for your heart or other medical reasons, talk to your healthcare provider about stopping it. Follow-up care Follow up with your healthcare provider or as advised by our staff. When to seek medical advice Call your healthcare provider if any of the following occur: Stomach pain gets worse or moves to the lower right abdomen (appendix area) Chest pain appears or gets worse, or spreads to the back, neck, shoulder, or arm An dtjq-dhr-jwcvqot trial of medicine doesn't relieve your symptoms Weight loss that can't be explained Trouble or pain swallowing Frequent vomiting (can t keep down liquids) Blood in the stool or vomit (red or black in color) Feeling weak or dizzy Fever of 100.4 F (38 C) or higher, or as directed by your healthcare provider [phone] [employer]. [address] [place] [address]. All rights reserved. This information is not intended as a substitute for professional medical care. Always follow yourhealthcare professional's instructions. Additional Information VACCINATE! IT SAVES LIVES! Members of the community who have not yet received the COVID-19 vaccine and would like to receive it can visit one of [facility] vaccine clinics. There are many vaccine clinic locations within the [facility]. For locations and available times, please visit www.gettheshot.coronavirus.[place].gov/. It is important to note that some COVID mobile vaccine clinics are held outdoors and may be canceled in rainy or stormy conditions. To learn more about pediatric vaccinations (ages 5-11), we invite you to visit the [facility] webpage. [email or web address].[email or web address].org/pages/[email or web address]-Hmzwq-Vimemabyzfa-Growdpjbdu-Wegoh-Jwn stions.htmlTo learn more about the COVID-19 vaccine, we invite you to visit the CDC website for a list of frequently asked questions. https://www.cdc.gov/coronavirus/2019-ncov/vaccines/faq.html [facility] Patient Portal Access Instructions: Stay connected with your healthcare team and access your personal medical information anytime with the [facility] Patient Portal. If you would like a full copy of your medical records please contact the [facility] Medical Records Department Saturday through Saturday between 8a.m. and 4:30p.m. Please follow the directions below to access the portal: 1.Access the email account you provided upon registration to the [facility].2.Look for an invitation email from [facility].3.Open the email and access the invitation link: Accept Invitation to [facility]4.Fill in the required esqueda to create your account. Sign into [email or web address] with your username and password that you created in the above steps to stay up to date. You can then view a summary of results, a summary of your visits, and the ability to download your summaries to your computer or send the information securely to a physician. Remember that your healthcare information is confidential, so carefully consider who you will allow to register on the [facility] Patient Portal for access to your information. You can also access the [facility] Patient Portal on the [employer]. Simply click on Health Records under bulletn. and then click on the [facility] logo. HOW TO SAFELY DISPOSE OF PRESCRIPTION MEDICATIONS Please use one of the following methods to safely dispose of your unused medications. 1.Use a drug disposal kit: the drug disposal pouch allows you to safely discard your old and unuseddrugs. Ask your nurse to give you one when you are discharged.2.Visit a local take-back location: Many local pharmacies and police departments have programs that collect old and unwanted prescriptiondrugs. Call your local pharmacy or go to http://[email or web address]/3X1Rz0f to find one close to you.3.Make use of household items: Use cat litter or old coffee grounds to dispose medications if other options arenot available. Mix your drugs with these household products, seal them in an airtight container andthrow it into the garbage. Call [facility]: [phone] to be sure your drugs can be disposed of in this way. Some medicines may require a different approach.4.Never flush your medications down the toilet. IF YOU HAVE BEEN PRESCRIBED AN OPIOIDS FOR PAIN If you have been prescribed an opioid (such as hydrocodone, oxycodone or morphine), it is critical to understand the possible side effects and risks of opioid pain medications. Even when taken as directed, opioids can have several side effects including: Tolerance, meaning you might need to take more of a medication for the same pain relief. Nausea, vomiting and/or constipation. Sleepiness, dizziness, dry mouth, confusion, depression or itching. Physical dependence, meaning you have withdrawal symptoms when a medication is stopped ? this can develop within a few days. KNOW YOUR RESPONSIBILITIES It is important to know exactly how much and how often to take the opioid pain medications you are prescribed. Never take opioids in higher amounts or more often than prescribed. Do not combine opioids with alcohol or other drugs that cause drowsiness, such as benzodiazepines, also known as benzos,including diazepam and alprazolam, muscle relaxants or sleep aids. Never sell or share prescriptionopioids. This is illegal. Store opioids in a secure place and out of reach of others (including children, family, friends and visitors). The last page(s) of this document has been signed and retained as a CHART COPY Signatures Patient Education Materials Chest Pain, Uncertain Cause Hypertension, Established GERD (Adult) Medication Leaflets My discharge plan and instructions have been reviewed and explained to me and I,DAVID HUBBARD understand my current condition and have read and understand these discharge instructions. I have received a written copy of the plan/instructions. If I have questions, I am aware that I should contactmy doctor. 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 Low lung volumes. No consolidation, pleural effusion, or visible pneumothorax. Degenerative changes of the spine. IMPRESSION: Low lung volumes. No acute radiographic abnormality. I have personally reviewed the images of this examination and agree with the resident's findings and interpretation. Interpreted by: Shawn Cifuentes DO Preliminary Report By: Nikhil Hutchinson Electronically signed By Shawn Cifuentes DO Dictated Date: 03/29/2024 1:53:47 PM Prelim Date: 03/29/2024 1:54:59 PM Sign Date: 03/29/2024 2:28:06 PM [facility] NoteSinus rhythm SEE DICTATION Electronic Signature: PAT DELGADILLO MD 03/29/2024 13:22:32[facility] 06-29-2024 Note. MICRO - Microbiology PROCEDURE: Urine Culture [O1 *1] SOURCE: Urine BODY SITE: COLLECTED DATE/TIME: 01/09/2024 13:27 EDT RECEIVED DATE/TIME: 01/09/2024 19:09 EDT START DATE/TIME: 01/09/2024 19:09 EDT FREE TEXT SOURCE: FINAL REPORTS Final Report [] Verified Date/Time/Personnel: 01/11/2024 07:41 EDT >100,000 cfu/ml Mixed growth consistent with normal urogenital venita. PRELIMINARY REPORTS Preliminary Report [] Verified Date/Time/Personnel: 01/10/2024 09:49 EDT No growth to date Order Comments O1: Urine Culture Added by Discern Performing Locations *1: This test was performed at: [facility], [address] [place] [address], [address] , [facility] ([place])01-09-2024 Hospital Discharge instructions Patient Education 01/09/2024 14:39:09 Paraesthesias Paraesthesias Paraesthesia is a burning or prickling sensation that is sometimes felt in the hands, arms, legs orfeet. It can also occur in other parts of the body. It can also feel like tingling or numbness, skin crawling, or itching. The feeling is not comfortable, but it is not painful. (The pins and needles feeling that happens when a foot or hand falls asleep is a temporary paraesthesia.) Paraesthesias that last or come and go may be caused by medical issues that need to be treated. These include stroke, a bulging disk pressing on a nerve, a trapped nerve, vitamin deficiencies, uncontrolled diabetes, alcohol abuse, or even certain medicines. Tests are often done. These tests may include blood tests, X-ray, CT (computerized tomography) scan, nerve conduction studies (NCS), or a muscle test (electromyography). Depending on the cause, treatment may include physical therapy. Home care Tell your healthcare provider about all medicines you take. This includes prescription and fnli-oxx-ofqdraa medicines, vitamins, and herbs. Ask if any of the medicines may be causing your problems. Don't make any changes to prescription medicines without talking to your healthcare provider first. You may be prescribed medicines to help relieve the tingling feeling or for pain. Take all medicines as directed. A numb hand or foot may be more prone to injury. To help protect it: oAlways use oven mitts. oTest water with an unaffected hand or foot. oUse caution when trimming nails. File sharp areas. oWear shoes that fit well to avoid pressure points, blisters, and ulcers. oInspect your hands and feet carefully (including the soles of your feet and between your toes) daily. If you see red areas, sores, or other problems, tell your healthcare provider. Follow-up care Follow up with your doctor, or as advised. You may need further testing or evaluation. When to seek medical advice Call your healthcare provider right away if any of the following occur: Numbness or weakness of the face, one arm, or one leg Slurred speech, confusion, trouble speaking, walking, or seeing Severe headache, fainting spell, dizziness, or seizure Chest, arm, neck, or upper back pain Loss of bladder or bowel control Open wound with redness, swelling, or pus [phone] [employer]. [address] [place] [address]. All rights reserved. This information is not intended as a substitute for professional medical care. Always follow yourhealthcare professional's instructions. 01/09/2024 14:39:09 Bladder Infection, Female (Adult) Bladder Infection, Female (Adult) Urine is normally doesn't have any bacteria in it. But bacteria can get into the urinary tract fromthe skin around the rectum. Or they can travel in the blood from elsewhere in the body. Once they are in your urinary tract, they can cause infection in the urethra (urethritis), the bladder (cystitis), or the kidneys (pyelonephritis). The most common place for an infection is in the bladder. This is called a bladder infection. This is one of the most common infections in women. Most bladder infections are easily treated. They are not serious unless the infection spreads to the kidney. The phrases bladder infection, UTI, and cystitis are often used to describe the same thing. But they are not always the same. Cystitis is an inflammation of the bladder. The most common cause of cystitis is an infection. Symptoms The infection causes inflammation in the urethra and bladder. This causes many of the symptoms. Themost common symptoms of a bladder infection are: Pain or burning when urinating Having to urinate more often than usual Urgent need to urinate Only a small amount of urine comes out Blood in urine Abdominal discomfort. This is usually in the lower abdomen above the pubic bone. Cloudy urine Strong- or bad-smelling urine Unable to urinate (urinary retention) Unable to hold urine in (urinary incontinence) Fever Loss of appetite Confusion (in older adults) Causes Bladder infections are not contagious. You can't get one from someone else, from a toilet seat, or from sharing a bath. The most common cause of bladder infections is bacteria from the bowels. The bacteria get onto the skin around the opening of the urethra. From there, they can get into the urine and travel up to thebladder, causing inflammation and infection. This usually happens because of: Wiping improperly after urinating. Always wipe from front to back. Bowel incontinence Procedures such as having a catheter inserted Older age Not emptying your bladder. This can allow bacteria a chance to grow in your urine. Dehydration Constipation Sex Use of a diaphragm for control Treatment Bladder infections are diagnosed by a urine test. They are treated with antibiotics and usually clear up quickly without complications. Treatment helps prevent a more serious kidney infection. Medicines Medicines can help in the treatment of a bladder infection: Take antibiotics until they are used up, even if you feel better. It is important to finish them tomake sure the infection has cleared. You can use acetaminophen or ibuprofen for pain, fever, or discomfort, unless another medicine was prescribed. If you have chronic liver or kidney disease, talk with your healthcare provider before using these medicines. Also talk with your provider if you've ever had a stomach ulcer or gastrointestinal bleeding, or are taking blood-thinner medicines. If you are given phenazopydridine to reduce burning with urination, it will cause your urine to become a bright orange color. This can stain clothing. Care and prevention These self-care steps can help prevent future infections: Drink plenty of fluids to prevent dehydration and flush out your bladder. Do this unless you must restrict fluids for other health reasons, or your doctor told you not to. Proper cleaning after going to the bathroom is important. Wipe from front to back after using the toilet to prevent the spread of bacteria. Urinate more often. Don't try to hold urine in for a long time. Wear loose-fitting clothes and cotton underwear. Avoid tight-fitting pants. Improve your diet and prevent constipation. Eat more fresh fruit and vegetables, and fiber, and less junk and fatty foods. Avoid sex until your symptoms are gone. Avoid caffeine, alcohol, and spicy foods. These can irritate your bladder. Urinate right after intercourse to flush out your bladder. If you use control pills and have frequent bladder infections, discuss it with your doctor. Follow-up care Call your healthcare provider if all symptoms are not gone after 3 days of treatment. This is especially important if you have repeat infections. If a culture was done, you will be told if your treatment needs to be changed. If directed, you cancall to find out the results. If X-rays were done, you will be told if the results will affect your treatment. Call 911 Call 911 if any of the following occur: Trouble breathing Hard to wake up or confusion Fainting or loss of consciousness Rapid heart rate When to seek medical advice Call your healthcare provider right away if any of these occur: Fever of 100.4 F (38.0 C) or higher, or as directed by your healthcare provider Symptoms are not better by the third day of treatment Back or belly (abdominal) pain that gets worse Repeated vomiting, or unable to keep medicine down Weakness or dizziness Vaginal discharge Pain, redness, or swelling in the outer vaginal area (labia) [phone] [employer]. [address] [place] [address], [place] [address]. All rights reserved. This information is not intended as a substitute for professional medical care. Always follow yourhealthcare professional's instructions. Follow Up Care 01/09/2024 12:03:54 With:MIHAELA HUI Address: [address] [place] [address] [address] [place] [address]- [facility] (1) When:1-2 days Comments:Follow-up closely with your doctor for further workup, as discussed you may return to be admitted to the hospital anytime. Take antibiotics as prescribed. Take a 324 aspirin daily. [facility] 06-27-2024 Note Discharge Instructions Thank you for allowing [facility] to assist you with your healthcare needs. The following is importantdischarge information regarding your hospital visit. Diagnosis from Today's Visit Paresthesia What to Do Next Instructions from Your Care Team No qualifying data available. Post Acute Orders No qualifying data available. You Need to Schedule the Following Appointments Follow Up with MIHAELA ASUNCIONRoss When:Within 1-2 days Where:[address] [place] [address] [address] [place], [place] [address] [facility] (1) Additional Information: Follow-up closely with your doctor for further workup, as discussed you mayreturn to be admitted to the hospital anytime. Take antibiotics as prescribed. Take a 324 aspirin daily. Allergies NKA Medications Please ask your primary doctor or pharmacist before taking any other medication not listed, including over the counter drugs, herbal medications, vitamins and or supplements as they may interact withyour home medications. What How Much When Instructions Last Dose New cephalexin (cephalexin 500 mg oral capsule) 1 cap by mouth Four (4) times a day Duration: 7 Days Printed Prescription Unchanged albuterol (Albuterol (Eqv-ProAir HFA) 90 mcg/ inh inhalation aerosol) 2 puff(s) Unchanged cetirizine (Zyrtec 10 mg oral tablet) 1 tab(s) by mouth Once a day Unchanged hydrochlorothiazide (hydrochlorothiazide 12.5 mg oral tablet) 1 tab(s) by mouth Every day Unchanged meloxicam (meloxicam 15 mg oral tablet) Unchanged montelukast (Singulair) Once a day Unchanged omeprazole (NF) (PriLOSEC 40 mg oral delayed release capsule (NF)) 1 cap by mouth Once a day Please take this list to your next doctor s visit. Bring all medications you take, including over the counter medications, herbals and other supplements with you to your doctor s visit. Patients and families are reminded to discard old lists and to update any records with all medication providers or retail pharmacies. Education Materials Paraesthesias Paraesthesia is a burning or prickling sensation that is sometimes felt in the hands, arms, legs orfeet. It can also occur in other parts of the body. It can also feel like tingling or numbness, skin crawling, or itching. The feeling is not comfortable, but it is not painful. (The pins and needles feeling that happens when a foot or hand falls asleep is a temporary paraesthesia.) Paraesthesias that last or come and go may be caused by medical issues that need to be treated. These include stroke, a bulging disk pressing on a nerve, a trapped nerve, vitamin deficiencies, uncontrolled diabetes, alcohol abuse, or even certain medicines. Tests are often done. These tests may include blood tests, X-ray, CT (computerized tomography) scan, nerve conduction studies (NCS), or a muscle test (electromyography). Depending on the cause, treatment may include physical therapy. Home care Tell your healthcare provider about all medicines you take. This includes prescription and zlmm-kte-bdensua medicines, vitamins, and herbs. Ask if any of the medicines may be causing your problems. Don't make any changes to prescription medicines without talking to your healthcare provider first. You may be prescribed medicines to help relieve the tingling feeling or for pain. Take all medicines as directed. A numb hand or foot may be more prone to injury. To help protect it: oAlways use oven mitts. oTest water with an unaffected hand or foot. oUse caution when trimming nails. File sharp areas. oWear shoes that fit well to avoid pressure points, blisters, and ulcers. oInspect your hands and feet carefully (including the soles of your feet and between your toes) daily. If you see red areas, sores, or other problems, tell your healthcare provider. Follow-up care Follow up with your doctor, or as advised. You may need further testing or evaluation. When to seek medical advice Call your healthcare provider right away if any of the following occur: Numbness or weakness of the face, one arm, or one leg Slurred speech, confusion, trouble speaking, walking, or seeing Severe headache, fainting spell, dizziness, or seizure Chest, arm, neck, or upper back pain Loss of bladder or bowel control Open wound with redness, swelling, or pus [phone] [employer]. [address] [place] [address]. All rights reserved. This information is not intended as a substitute for professional medical care. Always follow yourhealthcare professional's instructions. Bladder Infection, Female (Adult) Urine is normally doesn't have any bacteria in it. But bacteria can get into the urinary tract fromthe skin around the rectum. Or they can travel in the blood from elsewhere in the body. Once they are in your urinary tract, they can cause infection in the urethra (urethritis), the bladder (cystitis), or the kidneys (pyelonephritis). The most common place for an infection is in the bladder. This is called a bladder infection. This is one of the most common infections in women. Most bladder infections are easily treated. They are not serious unless the infection spreads to the kidney. The phrases bladder infection, UTI, and cystitis are often used to describe the same thing. But they are not always the same. Cystitis is an inflammation of the bladder. The most common cause of cystitis is an infection. Symptoms The infection causes inflammation in the urethra and bladder. This causes many of the symptoms. Themost common symptoms of a bladder infection are: Pain or burning when urinating Having to urinate more often than usual Urgent need to urinate Only a small amount of urine comes out Blood in urine Abdominal discomfort. This is usually in the lower abdomen above the pubic bone. Cloudy urine Strong- or bad-smelling urine Unable to urinate (urinary retention) Unable to hold urine in (urinary incontinence) Fever Loss of appetite Confusion (in older adults) Causes Bladder infections are not contagious. You can't get one from someone else, from a toilet seat, or from sharing a bath. The most common cause of bladder infections is bacteria from the bowels. The bacteria get onto the skin around the opening of the urethra. From there, they can get into the urine and travel up to thebladder, causing inflammation and infection. This usually happens because of: Wiping improperly after urinating. Always wipe from front to back. Bowel incontinence Procedures such as having a catheter inserted Older age Not emptying your bladder. This can allow bacteria a chance to grow in your urine. Dehydration Constipation Sex Use of a diaphragm for control Treatment Bladder infections are diagnosed by a urine test. They are treated with antibiotics and usually clear up quickly without complications. Treatment helps prevent a more serious kidney infection. Medicines Medicines can help in the treatment of a bladder infection: Take antibiotics until they are used up, even if you feel better. It is important to finish them tomake sure the infection has cleared. You can use acetaminophen or ibuprofen for pain, fever, or discomfort, unless another medicine was prescribed. If you have chronic liver or kidney disease, talk with your healthcare provider before using these medicines. Also talk with your provider if you've ever had a stomach ulcer or gastrointestinal bleeding, or are taking blood-thinner medicines. If you are given phenazopydridine to reduce burning with urination, it will cause your urine to become a bright orange color. This can stain clothing. Care and prevention These self-care steps can help prevent future infections: Drink plenty of fluids to prevent dehydration and flush out your bladder. Do this unless you must restrict fluids for other health reasons, or your doctor told you not to. Proper cleaning after going to the bathroom is important. Wipe from front to back after using the toilet to prevent the spread of bacteria. Urinate more often. Don't try to hold urine in for a long time. Wear loose-fitting clothes and cotton underwear. Avoid tight-fitting pants. Improve your diet and prevent constipation. Eat more fresh fruit and vegetables, and fiber, and less junk and fatty foods. Avoid sex until your symptoms are gone. Avoid caffeine, alcohol, and spicy foods. These can irritate your bladder. Urinate right after intercourse to flush out your bladder. If you use control pills and have frequent bladder infections, discuss it with your doctor. Follow-up care Call your healthcare provider if all symptoms are not gone after 3 days of treatment. This is especially important if you have repeat infections. If a culture was done, you will be told if your treatment needs to be changed. If directed, you cancall to find out the results. If X-rays were done, you will be told if the results will affect your treatment. Call 911 Call 911 if any of the following occur: Trouble breathing Hard to wake up or confusion Fainting or loss of consciousness Rapid heart rate When to seek medical advice Call your healthcare provider right away if any of these occur: Fever of 100.4 F (38.0 C) or higher, or as directed by your healthcare provider Symptoms are not better by the third day of treatment Back or belly (abdominal) pain that gets worse Repeated vomiting, or unable to keep medicine down Weakness or dizziness Vaginal discharge Pain, redness, or swelling in the outer vaginal area (labia) [phone] [employer]. [address] [place] [address]. All rights reserved. This information is not intended as a substitute for professional medical care. Always follow yourhealthcare professional's instructions. Additional Information VACCINATE! IT SAVES LIVES! Members of the community who have not yet received the COVID-19 vaccine and would like to receive it can visit one of [facility] vaccine clinics. There are many vaccine clinic locations within the [facility]. For locations and available times, please visit www.gettheshot.coronavirus.[place].gov/. It is important to note that some COVID mobile vaccine clinics are held outdoors and may be canceled in rainy or stormy conditions. To learn more about pediatric vaccinations (ages 5-11), we invite you to visit the [facility] webpage. [email or web address]/[email or web address] [email or web address] learn more about the COVID-19 vaccine, we invite you to visit the CDC website for a list of frequently asked questions. https://www.cdc.gov/coronavirus/2019-ncov/vaccines/faq.html [facility] [employer] Patient Portal Access Instructions: Stay connected with your healthcare team and access your personal medical information anytime with the [facility] Patient Portal. If you would like a full copy of your medical records please contact the [facility] Medical Records Department Saturday through Saturday between 8a.m. and 4:30p.m. Please follow the directions below to access the portal: 1.Access the email account you provided upon registration to the hospital.2.Look for an invitation email from [facility].3.Open the email and access the invitation link: Accept Invitation to [facility]4.Fill in the required esqueda to create your account. Sign into [email or web address] with your username and password that you created in the above steps to stay up to date. You can then view a summary of results, a summary of your visits, and the ability to download your summaries to your computer or send the information securely to a physician. Remember that your healthcare information is confidential, so carefully consider who you will allow to register on the [facility] Patient Portal for access to your information. You can also access the [facility] Patient Portal on the [employer]. Simply click on Health Records under bulletn. and then click on the [facility] logo. HOW TO SAFELY DISPOSE OF PRESCRIPTION MEDICATIONS Please use one of the following methods to safely dispose of your unused medications. 1.Use a drug disposal kit: the drug disposal pouch allows you to safely discard your old and unuseddrugs. Ask your nurse to give you one when you are discharged.2.Visit a local take-back location: Many local pharmacies and police departments have programs that collect old and unwanted prescriptiondrugs. Call your local pharmacy or go to http://[employer]/9E8Lc1o to find one close to you.3.Make use of household items: Use cat litter or old coffee grounds to dispose medications if other options arenot available. Mix your drugs with these household products, seal them in an airtight container andthrow it into the garbage. Call [facility]: [phone] to be sure your drugs can be disposed of in this way. Some medicines may require a different approach.4.Never flush your medications down the toilet. IF YOU HAVE BEEN PRESCRIBED AN OPIOIDS FOR PAIN If you have been prescribed an opioid (such as hydrocodone, oxycodone or morphine), it is critical to understand the possible side effects and risks of opioid pain medications. Even when taken as directed, opioids can have several side effects including: Tolerance, meaning you might need to take more of a medication for the same pain relief. Nausea, vomiting and/or constipation. Sleepiness, dizziness, dry mouth, confusion, depression or itching. Physical dependence, meaning you have withdrawal symptoms when a medication is stopped ? this can develop within a few days. KNOW YOUR RESPONSIBILITIES It is important to know exactly how much and how often to take the opioid pain medications you are prescribed. Never take opioids in higher amounts or more often than prescribed. Do not combine opioids with alcohol or other drugs that cause drowsiness, such as benzodiazepines, also known as benzos,including diazepam and alprazolam, muscle relaxants or sleep aids. Never sell or share prescriptionopioids. This is illegal. Store opioids in a secure place and out of reach of others (including children, family, friends and visitors). The last page(s) of this document has been signed and retained as a CHART COPY Signatures Patient Education Materials Paraesthesias Bladder Infection, Female (Adult) Medication Leaflets My discharge plan and instructions have been reviewed and explained to me and I,DAVID HUBBARD understand my current condition and have read and understand these discharge instructions. I have received a written copy of the plan/instructions. If I have questions, I am aware that I should contactmy doctor. 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: Date/Time: Relationship to Patient: Witness Name/Signature: Date/Time: [facility]06-27-2024 Evaluation + Plan note Diagnostic Tests Pending * Urine Culture 01/09/24 [facility] 06-27-2024 Note ORIGINAL HISTORY: Right arm numbness COMPARISON: No TECHNIQUE: Routine noncontrast head CT, with sagittal and coronal reconstructions. This exam was performed according to our departmental dose optimization program, and includes the following measures where applicable: automated exposure control, adjustment of the mAs and/or kVp according to patient size and/or exam, and an iterative reconstruction algorithm. FINDINGS: The ventricles and sulci are normal to mildly enlarged. There are no abnormal intra or extra-axial fluid collections. Saucedo-white matter differentiation is maintained. The calvaria and the bones of the base of the skull are intact. IMPRESSION: Mild volume loss, otherwise unremarkable. Interpreted by: Baldemar Yo MD Preliminary Report By: Baldemar Yo MD Electronically signed By Baldemar Yo MD Dictated Date: 01/09/2024 2:10:12 PM Prelim Date: 01/09/2024 2:11:06 PM Sign Date: 01/09/2024 2:11:06 PM [facility] NoteSinus rhythm LAE, consider biatrial enlargement Baseline wander in lead(s) I,II,aVR Electronic Signature: CESAR BELLA MD [facility] No data available for this section [facility] Evaluation note* Diagnosis Onset Date Resolution Status Vertigo acute Chronic back pain chronic Essential hypertension chron ic GERD (gastroesophageal reflux disease) [facility] Work Phone: Evaluation note* Diagnosis Onset Date Resolution Status Allergy-induced asthma chron ic Essential hypertension chron ic GERD (gastroesophageal reflux disease) chronic Vertigo [facility] Work Phone: Evaluation note* Diagnosis Onset Date Resolution Status Rotator cuff impingement syndrome of left shoulder acute Rotator cuff impingement syndrome of left shoulder acute Allergy-induced asthma chron ic Essential hypertension chron ic GERD (gastroesophageal reflux disease) [facility] Work Phone: Hospital Discharge instructions No data available for this section [facility] Instructions* Name Dates Details Patient Instructions get lab s Sep 01 fasting and follow up 4-7 days later Indication:Postmenopausal (Renamed from Postmenopausal status) Start:01-Mar-2021 Instruction Type:Provider Instructions for Treatment How to Access Health Informa tion Online using Patient Portal and [employer]rd [employer] Apps Indication:BMI 34.0-34.9,adult Start:01-Mar-2021 Instruction Type:Patient Education Patient Instructions Indication:Non-smoker Start:31-Aug-2020 Instruction Type:Provider Instructions for Treatment How to Access Health Informa tion Online using Patient Portal and [employer]rd [employer] Apps Indication:Non-smoker Start:31-Aug-2020 Instruction Type:Patient Education How to access health informa tion online Indication:BMI 33.0-33.9,adult Start:06-Jun-2020 Instruction Type:Patient Education How to access health informa tion online - Detail Indication:BMI 33.0-33.9,adult Start:06-Jun-2020 Instruction Type:Patient Education Patient Instructions Indication:BMI 33.0-33.9,adult Start:06-Jun-2020 Instruction Type:Provider Instructions for Treatment How to access health informa tion online Indication:Non-smoker Start:16-Mar-2020 Instruction Type:Patient Education How to access health informa tion online - Detail Indication:Non-smoker Start:16-Mar-2020 Instruction Type:Patient Education Patient Instructions Indication:BMI 33.0-33.9,adult Start:16-Mar-2020 Instruction Type:Provider Instructions for Treatment How to access health informa tion online Indication:Non-smoker Start:14-Sep-2019 Instruction Type:Patient Education How to access health informa tion online - Detail Indication:Non-smoker Start:14-Sep-2019 Instruction Type:Patient Education Patient Instructions Indication:Non-smoker Start:14-Sep-2019 Instruction Type:Provider Instructions for Treatment How to access health informa tion online - Detail Indication:Non-smoker Start:18-Aug-2019 Instruction Type:Patient Education How to access health informa tion online Indication:Non-smoker Start:18-Aug-2019 Instruction Type:Patient Education Patient Instructions Indication:Non-smoker Start:18-Aug-2019 Instruction Type:Provider Instructions for Treatment How to access health informa tion online Indication:Non-smoker Start:08-Jun-2019 Instruction Type:Patient Education How to access health informa tion online - Detail Indication:Non-smoker Start:08-Jun-2019 Instruction Type:Patient Education Patient Instructions Indication:Non-smoker Start:08-Jun-2019 Instruction Type:Provider Instructions for Treatment How to access health informa tion online Indication:Nonsmoker Start:15-Sep-2018 Instruction Type:Patient Education How to access health informa tion online - Detail Indication:Nonsmoker Start:15-Sep-2018 Instruction Type:Patient Education Patient Instructions Indication:Nonsmoker Start:15-Sep-2018 Instruction Type:Provider Instructions for Treatment How to access health informa tion online Indication:Chills Start:12-Sep-2018 Instruction Type:Patient Education How to access health informa tion online - Detail Indication:Chills Start:12-Sep-2018 Instruction Type:Patient Education Patient Instructions Indication:Chills Start:12-Sep-2018 Instruction Type:Provider Instructions for Treatment How to access health informa tion online Indication:Nonsmoker Start:09-Jul-2018 Instruction Type:Patient Education How to access health informa tion online - Detail Indication:Nonsmoker Start:09-Jul-2018 Instruction Type:Patient Education Patient Instructions Indication:Nonsmoker Start:09-Jul-2018 Instruction Type:Provider Instructions for Treatment How to access health informa tion online Indication:Annual Medicare Physical (Renamed from Medicare annual wellness visit, subsequent) Start:21-Oct-2017 Instruction Type:Patient Education How to access health informa tion online - Detail Indication:Annual Medicare Physical (Renamed from Medicare annual wellness visit, subsequent) Start:21-Oct-2017 Instruction Type:Patient Education Patient Instructions Indication:Nonsmoker Start:21-Oct-2017 Instruction Type:Provider Instructions for Treatment How to access health informa tion online Indication:Conjunctivitis Start:18-Oct-2017 Instruction Type:Patient Education How to access health informa tion online - Detail Indication:Conjunctivitis Start:18-Oct-2017 Instruction Type:Patient Education Patient Instructions Indication:Conjunctivitis Start:18-Oct-2017 Instruction Type:Provider Instructions for Treatment How to access health informa tion online Indication:Hypertension, essential, benign Start:19-Aug-2017 Instruction Type:Patient Education How to access health informa tion online - Detail Indication:Hypertension, essential, benign Start:19-Aug-2017 Instruction Type:Patient Education Patient Instructions Indication:Hypertension, essential, benign Start:19-Aug-2017 Instruction Type:Provider Instructions for Treatment How to access health informa tion online Indication:Hypertension, essential, benign Start:12-Apr-2017 Instruction Type:Patient Education How to access health informa tion online - Detail Indication:Hypertension, essential, benign Start:12-Apr-2017 Instruction Type:Patient Education Patient Instructions Indication:Hypertension, essential, benign Start:12-Apr-2017 Instruction Type:Provider Instructions for Treatment Patient Instructions Indication:Hypertension, essential, benign Start:04-Jan-2017 Instruction Type:Provider Instructions for Treatment How to access health informa tion online Indication:Esophageal spasm Start:02-Oct-2016 Instruction Type:Patient Education How to access health informa tion online - Detail Indication:Esophageal spasm Start:02-Oct-2016 Instruction Type:Patient Education Patient Instructions Indication:Esophageal spasm Start:02-Oct-2016 Instruction Type:Provider Instructions for Treatment How to access health informa tion online Indication:Esophageal spasm Start:13-Feb-2016 Instruction Type:Patient Education How to access health informa tion online - Detail Indication:Esophageal spasm Start:13-Feb-2016 Instruction Type:Patient Education Patient Instructions Indication:Esophageal spasm Start:13-Feb-2016 Instruction Type:Provider Instructions for Treatment How to access health informa tion online Indication:Ear pain, right Start:31-Jan-2016 Instruction Type:Patient Education How to access health informa tion online - Detail Indication:Ear pain, right Start:31-Jan-2016 Instruction Type:Patient Education Patient Instructions Indication:Ear pain, right Start:31-Jan-2016 Instruction Type:Provider Instructions for Treatment How to access health informa tion online Indication:Dyspnea Start:13-Sep-2015 Instruction Type:Patient Education How to access health informa tion online - Detail Indication:Dyspnea Start:13-Sep-2015 Instruction Type:Patient Education Patient Instructions Indication:Dyspnea Start:13-Sep-2015 Instruction Type:Provider Instructions for Treatment How to access health informa tion online Indication:Osteoarthrosis, unspecified whether generalized or localized, other specified sites Start:14-Mar-2015 Instruction Type:Patient Education How to access health informa tion online - Detail Indication:Osteoarthrosis, unspecified whether generalized or localized, other specified sites Start:14-Mar-2015 Instruction Type:Patient Education Patient Instructions Indication:Osteoarthrosis, unspecified whether generalized or localized, other specified sites Start:14-Mar-2015 Instruction Type:Provider Instructions for Treatment How to access health informa tion online Indication:Hypertension, essential, benign Start:17-Jan-2015 Instruction Type:Patient Education How to access health informa tion online - Detail Indication:Hypertension, essential, benign Start:17-Jan-2015 Instruction Type:Patient Education Patient Instructions Indication:Hypertension, essential, benign Start:17-Jan-2015 Instruction Type:Provider Instructions for Treatment Patient Instructions Indication:Acute sinusitis, unspecified Start:20-May-2013 Instruction Type:Provider Instructions for Treatment Patient Instructions Indication:Hypertension, essential, benign Start:21-Apr-2013 Instruction Type:Provider Instructions for Treatment Patient Instructions Indication:Hypertension, essential, benign Start:23-Oct-2012 Instruction Type:Provider Instructions for Treatment [facility]; [facility] Work Phone: Instructions* Name Dates Details How to Access Health Informa tion Online using Patient Portal and [employer]rd [employer] Apps Indication:Sinusitis Start:22-Aug-2021 Instruction Type:Patient Education Patient Instructions Indication:Sinusitis Start:22-Aug-2021 Instruction Type:Provider Instructions for Treatment Patient Instructions get lab s Sep 01 fasting and follow up 4-7 days later Indication:Postmenopausal (Renamed from Postmenopausal status) Start:01-Mar-2021 Instruction Type:Provider Instructions for Treatment How to Access Health Informa tion Online using Patient Portal and [employer] Apps Indication:BMI 34.0-34.9,adult Start:01-Mar-2021 Instruction Type:Patient Education Patient Instructions Indication:Non-smoker Start:31-Aug-2020 Instruction Type:Provider Instructions for Treatment How to Access Health Informa tion Online using Patient Portal and [employer] Apps Indication:Non-smoker Start:31-Aug-2020 Instruction Type:Patient Education How to access health informa tion online Indication:BMI 33.0-33.9,adult Start:06-Jun-2020 Instruction Type:Patient Education How to access health informa tion online - Detail Indication:BMI 33.0-33.9,adult Start:06-Jun-2020 Instruction Type:Patient Education Patient Instructions Indication:BMI 33.0-33.9,adult Start:06-Jun-2020 Instruction Type:Provider Instructions for Treatment How to access health informa tion online Indication:Non-smoker Start:16-Mar-2020 Instruction Type:Patient Education How to access health informa tion online - Detail Indication:Non-smoker Start:16-Mar-2020 Instruction Type:Patient Education Patient Instructions Indication:BMI 33.0-33.9,adult Start:16-Mar-2020 Instruction Type:Provider Instructions for Treatment How to access health informa tion online Indication:Non-smoker Start:14-Sep-2019 Instruction Type:Patient Education How to access health informa tion online - Detail Indication:Non-smoker Start:14-Sep-2019 Instruction Type:Patient Education Patient Instructions Indication:Non-smoker Start:14-Sep-2019 Instruction Type:Provider Instructions for Treatment How to access health informa tion online - Detail Indication:Non-smoker Start:18-Aug-2019 Instruction Type:Patient Education How to access health informa tion online Indication:Non-smoker Start:18-Aug-2019 Instruction Type:Patient Education Patient Instructions Indication:Non-smoker Start:18-Aug-2019 Instruction Type:Provider Instructions for Treatment How to access health informa tion online Indication:Non-smoker Start:08-Jun-2019 Instruction Type:Patient Education How to access health informa tion online - Detail Indication:Non-smoker Start:08-Jun-2019 Instruction Type:Patient Education Patient Instructions Indication:Non-smoker Start:08-Jun-2019 Instruction Type:Provider Instructions for Treatment How to access health informa tion online Indication:Nonsmoker Start:15-Sep-2018 Instruction Type:Patient Education How to access health informa tion online - Detail Indication:Nonsmoker Start:15-Sep-2018 Instruction Type:Patient Education Patient Instructions Indication:Nonsmoker Start:15-Sep-2018 Instruction Type:Provider Instructions for Treatment How to access health informa tion online Indication:Chills Start:12-Sep-2018 Instruction Type:Patient Education How to access health informa tion online - Detail Indication:Chills Start:12-Sep-2018 Instruction Type:Patient Education Patient Instructions Indication:Chills Start:12-Sep-2018 Instruction Type:Provider Instructions for Treatment How to access health informa tion online Indication:Nonsmoker Start:09-Jul-2018 Instruction Type:Patient Education How to access health informa tion online - Detail Indication:Nonsmoker Start:09-Jul-2018 Instruction Type:Patient Education Patient Instructions Indication:Nonsmoker Start:09-Jul-2018 Instruction Type:Provider Instructions for Treatment How to access health informa tion online Indication:Annual Medicare Physical (Renamed from Medicare annual wellness visit, subsequent) Start:21-Oct-2017 Instruction Type:Patient Education How to access health informa tion online - Detail Indication:Annual Medicare Physical (Renamed from Medicare annual wellness visit, subsequent) Start:21-Oct-2017 Instruction Type:Patient Education Patient Instructions Indication:Nonsmoker Start:21-Oct-2017 Instruction Type:Provider Instructions for Treatment How to access health informa tion online Indication:Conjunctivitis Start:18-Oct-2017 Instruction Type:Patient Education How to access health informa tion online - Detail Indication:Conjunctivitis Start:18-Oct-2017 Instruction Type:Patient Education Patient Instructions Indication:Conjunctivitis Start:18-Oct-2017 Instruction Type:Provider Instructions for Treatment How to access health informa tion online Indication:Hypertension, essential, benign Start:19-Aug-2017 Instruction Type:Patient Education How to access health informa tion online - Detail Indication:Hypertension, essential, benign Start:19-Aug-2017 Instruction Type:Patient Education Patient Instructions Indication:Hypertension, essential, benign Start:19-Aug-2017 Instruction Type:Provider Instructions for Treatment How to access health informa tion online Indication:Hypertension, essential, benign Start:12-Apr-2017 Instruction Type:Patient Education How to access health informa tion online - Detail Indication:Hypertension, essential, benign Start:12-Apr-2017 Instruction Type:Patient Education Patient Instructions Indication:Hypertension, essential, benign Start:12-Apr-2017 Instruction Type:Provider Instructions for Treatment Patient Instructions Indication:Hypertension, essential, benign Start:04-Jan-2017 Instruction Type:Provider Instructions for Treatment How to access health informa tion online Indication:Esophageal spasm Start:02-Oct-2016 Instruction Type:Patient Education How to access health informa tion online - Detail Indication:Esophageal spasm Start:02-Oct-2016 Instruction Type:Patient Education Patient Instructions Indication:Esophageal spasm Start:02-Oct-2016 Instruction Type:Provider Instructions for Treatment How to access health informa tion online Indication:Esophageal spasm Start:13-Feb-2016 Instruction Type:Patient Education How to access health informa tion online - Detail Indication:Esophageal spasm Start:13-Feb-2016 Instruction Type:Patient Education Patient Instructions Indication:Esophageal spasm Start:13-Feb-2016 Instruction Type:Provider Instructions for Treatment How to access health informa tion online Indication:Ear pain, right Start:31-Jan-2016 Instruction Type:Patient Education How to access health informa tion online - Detail Indication:Ear pain, right Start:31-Jan-2016 Instruction Type:Patient Education Patient Instructions Indication:Ear pain, right Start:31-Jan-2016 Instruction Type:Provider Instructions for Treatment How to access health informa tion online Indication:Dyspnea Start:13-Sep-2015 Instruction Type:Patient Education How to access health informa tion online - Detail Indication:Dyspnea Start:13-Sep-2015 Instruction Type:Patient Education Patient Instructions Indication:Dyspnea Start:13-Sep-2015 Instruction Type:Provider Instructions for Treatment How to access health informa tion online Indication:Osteoarthrosis, unspecified whether generalized or localized, other specified sites Start:14-Mar-2015 Instruction Type:Patient Education How to access health informa tion online - Detail Indication:Osteoarthrosis, unspecified whether generalized or localized, other specified sites Start:14-Mar-2015 Instruction Type:Patient Education Patient Instructions Indication:Osteoarthrosis, unspecified whether generalized or localized, other specified sites Start:14-Mar-2015 Instruction Type:Provider Instructions for Treatment How to access health informa tion online Indication:Hypertension, essential, benign Start:17-Jan-2015 Instruction Type:Patient Education How to access health informa tion online - Detail Indication:Hypertension, essential, benign Start:17-Jan-2015 Instruction Type:Patient Education Patient Instructions Indication:Hypertension, essential, benign Start:17-Jan-2015 Instruction Type:Provider Instructions for Treatment Patient Instructions Indication:Acute sinusitis, unspecified Start:20-May-2013 Instruction Type:Provider Instructions for Treatment Patient Instructions Indication:Hypertension, essential, benign Start:21-Apr-2013 Instruction Type:Provider Instructions for Treatment Patient Instructions Indication:Hypertension, essential, benign Start:23-Oct-2012 Instruction Type:Provider Instructions for Treatment [facility]; [facility] Work Phone: Instructions* Name Dates Details Patient Instructions Indication:Non-smoker Start:06-Sep-2021 Instruction Type:Provider Instructions for Treatment How to Access Health Informa tion Online using Patient Portal and [employer] Apps Indication:Non-smoker Start:06-Sep-2021 Instruction Type:Patient Education How to Access Health Informa tion Online using Patient Portal and [employer] Apps Indication:Sinusitis Start:22-Aug-2021 Instruction Type:Patient Education Patient Instructions Indication:Sinusitis Start:22-Aug-2021 Instruction Type:Provider Instructions for Treatment Patient Instructions get lab s Sep 01 fasting and follow up 4-7 days later Indication:Postmenopausal (Renamed from Postmenopausal status) Start:01-Mar-2021 Instruction Type:Provider Instructions for Treatment How to Access Health Informa tion Online using Patient Portal and [employer] Apps Indication:BMI 34.0-34.9,adult Start:01-Mar-2021 Instruction Type:Patient Education Patient Instructions Indication:Non-smoker Start:31-Aug-2020 Instruction Type:Provider Instructions for Treatment How to Access Health Informa tion Online using Patient Portal and [employer] Apps Indication:Non-smoker Start:31-Aug-2020 Instruction Type:Patient Education How to access health informa tion online Indication:BMI 33.0-33.9,adult Start:06-Jun-2020 Instruction Type:Patient Education How to access health informa tion online - Detail Indication:BMI 33.0-33.9,adult Start:06-Jun-2020 Instruction Type:Patient Education Patient Instructions Indication:BMI 33.0-33.9,adult Start:06-Jun-2020 Instruction Type:Provider Instructions for Treatment How to access health informa tion online Indication:Non-smoker Start:16-Mar-2020 Instruction Type:Patient Education How to access health informa tion online - Detail Indication:Non-smoker Start:16-Mar-2020 Instruction Type:Patient Education Patient Instructions Indication:BMI 33.0-33.9,adult Start:16-Mar-2020 Instruction Type:Provider Instructions for Treatment How to access health informa tion online Indication:Non-smoker Start:14-Sep-2019 Instruction Type:Patient Education How to access health informa tion online - Detail Indication:Non-smoker Start:14-Sep-2019 Instruction Type:Patient Education Patient Instructions Indication:Non-smoker Start:14-Sep-2019 Instruction Type:Provider Instructions for Treatment How to access health informa tion online - Detail Indication:Non-smoker Start:18-Aug-2019 Instruction Type:Patient Education How to access health informa tion online Indication:Non-smoker Start:18-Aug-2019 Instruction Type:Patient Education Patient Instructions Indication:Non-smoker Start:18-Aug-2019 Instruction Type:Provider Instructions for Treatment How to access health informa tion online Indication:Non-smoker Start:08-Jun-2019 Instruction Type:Patient Education How to access health informa tion online - Detail Indication:Non-smoker Start:08-Jun-2019 Instruction Type:Patient Education Patient Instructions Indication:Non-smoker Start:08-Jun-2019 Instruction Type:Provider Instructions for Treatment How to access health informa tion online Indication:Nonsmoker Start:15-Sep-2018 Instruction Type:Patient Education How to access health informa tion online - Detail Indication:Nonsmoker Start:15-Sep-2018 Instruction Type:Patient Education Patient Instructions Indication:Nonsmoker Start:15-Sep-2018 Instruction Type:Provider Instructions for Treatment How to access health informa tion online Indication:Chills Start:12-Sep-2018 Instruction Type:Patient Education How to access health informa tion online - Detail Indication:Chills Start:12-Sep-2018 Instruction Type:Patient Education Patient Instructions Indication:Chills Start:12-Sep-2018 Instruction Type:Provider Instructions for Treatment How to access health informa tion online Indication:Nonsmoker Start:09-Jul-2018 Instruction Type:Patient Education How to access health informa tion online - Detail Indication:Nonsmoker Start:09-Jul-2018 Instruction Type:Patient Education Patient Instructions Indication:Nonsmoker Start:09-Jul-2018 Instruction Type:Provider Instructions for Treatment How to access health informa tion online Indication:Annual Medicare Physical (Renamed from Medicare annual wellness visit, subsequent) Start:21-Oct-2017 Instruction Type:Patient Education How to access health informa tion online - Detail Indication:Annual Medicare Physical (Renamed from Medicare annual wellness visit, subsequent) Start:21-Oct-2017 Instruction Type:Patient Education Patient Instructions Indication:Nonsmoker Start:21-Oct-2017 Instruction Type:Provider Instructions for Treatment How to access health informa tion online Indication:Conjunctivitis Start:18-Oct-2017 Instruction Type:Patient Education How to access health informa tion online - Detail Indication:Conjunctivitis Start:18-Oct-2017 Instruction Type:Patient Education Patient Instructions Indication:Conjunctivitis Start:18-Oct-2017 Instruction Type:Provider Instructions for Treatment How to access health informa tion online Indication:Hypertension, essential, benign Start:19-Aug-2017 Instruction Type:Patient Education How to access health informa tion online - Detail Indication:Hypertension, essential, benign Start:19-Aug-2017 Instruction Type:Patient Education Patient Instructions Indication:Hypertension, essential, benign Start:19-Aug-2017 Instruction Type:Provider Instructions for Treatment How to access health informa tion online Indication:Hypertension, essential, benign Start:12-Apr-2017 Instruction Type:Patient Education How to access health informa tion online - Detail Indication:Hypertension, essential, benign Start:12-Apr-2017 Instruction Type:Patient Education Patient Instructions Indication:Hypertension, essential, benign Start:12-Apr-2017 Instruction Type:Provider Instructions for Treatment Patient Instructions Indication:Hypertension, essential, benign Start:04-Jan-2017 Instruction Type:Provider Instructions for Treatment How to access health informa tion online Indication:Esophageal spasm Start:02-Oct-2016 Instruction Type:Patient Education How to access health informa tion online - Detail Indication:Esophageal spasm Start:02-Oct-2016 Instruction Type:Patient Education Patient Instructions Indication:Esophageal spasm Start:02-Oct-2016 Instruction Type:Provider Instructions for Treatment How to access health informa tion online Indication:Esophageal spasm Start:13-Feb-2016 Instruction Type:Patient Education How to access health informa tion online - Detail Indication:Esophageal spasm Start:13-Feb-2016 Instruction Type:Patient Education Patient Instructions Indication:Esophageal spasm Start:13-Feb-2016 Instruction Type:Provider Instructions for Treatment How to access health informa tion online Indication:Ear pain, right Start:31-Jan-2016 Instruction Type:Patient Education How to access health informa tion online - Detail Indication:Ear pain, right Start:31-Jan-2016 Instruction Type:Patient Education Patient Instructions Indication:Ear pain, right Start:31-Jan-2016 Instruction Type:Provider Instructions for Treatment How to access health informa tion online Indication:Dyspnea Start:13-Sep-2015 Instruction Type:Patient Education How to access health informa tion online - Detail Indication:Dyspnea Start:13-Sep-2015 Instruction Type:Patient Education Patient Instructions Indication:Dyspnea Start:13-Sep-2015 Instruction Type:Provider Instructions for Treatment How to access health informa tion online Indication:Osteoarthrosis, unspecified whether generalized or localized, other specified sites Start:14-Mar-2015 Instruction Type:Patient Education How to access health informa tion online - Detail Indication:Osteoarthrosis, unspecified whether generalized or localized, other specified sites Start:14-Mar-2015 Instruction Type:Patient Education Patient Instructions Indication:Osteoarthrosis, unspecified whether generalized or localized, other specified sites Start:14-Mar-2015 Instruction Type:Provider Instructions for Treatment How to access health informa tion online Indication:Hypertension, essential, benign Start:17-Jan-2015 Instruction Type:Patient Education How to access health informa tion online - Detail Indication:Hypertension, essential, benign Start:17-Jan-2015 Instruction Type:Patient Education Patient Instructions Indication:Hypertension, essential, benign Start:17-Jan-2015 Instruction Type:Provider Instructions for Treatment Patient Instructions Indication:Acute sinusitis, unspecified Start:20-May-2013 Instruction Type:Provider Instructions for Treatment Patient Instructions Indication:Hypertension, essential, benign Start:21-Apr-2013 Instruction Type:Provider Instructions for Treatment Patient Instructions Indication:Hypertension, essential, benign Start:23-Oct-2012 Instruction Type:Provider Instructions for Treatment [facility] Work Phone: Instructions* Name Dates Details Patient Instructions Indication:Encounter for screening for malignant neoplasm of colon (Renamed from Special screening for malignant neoplasms, colon) Start:06-Sep-2021 Instruction Type:Provider Instructions for Treatment How to Access Health Informa tion Online using Patient Portal and [employer] Apps Indication:Non-smoker Start:06-Sep-2021 Instruction Type:Patient Education How to Access Health Informa tion Online using Patient Portal and [employer] Apps Indication:Sinusitis Start:22-Aug-2021 Instruction Type:Patient Education Patient Instructions Indication:Sinusitis Start:22-Aug-2021 Instruction Type:Provider Instructions for Treatment Patient Instructions get lab s Sep 01 fasting and follow up 4-7 days later Indication:Postmenopausal (Renamed from Postmenopausal status) Start:01-Mar-2021 Instruction Type:Provider Instructions for Treatment How to Access Health Informa tion Online using Patient Portal and [employer]rd [employer] Apps Indication:BMI 34.0-34.9,adult Start:01-Mar-2021 Instruction Type:Patient Education Patient Instructions Indication:Non-smoker Start:31-Aug-2020 Instruction Type:Provider Instructions for Treatment How to Access Health Informa tion Online using Patient Portal and [employer] Apps Indication:Non-smoker Start:31-Aug-2020 Instruction Type:Patient Education How to access health informa tion online Indication:BMI 33.0-33.9,adult Start:06-Jun-2020 Instruction Type:Patient Education How to access health informa tion online - Detail Indication:BMI 33.0-33.9,adult Start:06-Jun-2020 Instruction Type:Patient Education Patient Instructions Indication:BMI 33.0-33.9,adult Start:06-Jun-2020 Instruction Type:Provider Instructions for Treatment How to access health informa tion online Indication:Non-smoker Start:16-Mar-2020 Instruction Type:Patient Education How to access health informa tion online - Detail Indication:Non-smoker Start:16-Mar-2020 Instruction Type:Patient Education Patient Instructions Indication:BMI 33.0-33.9,adult Start:16-Mar-2020 Instruction Type:Provider Instructions for Treatment How to access health informa tion online Indication:Non-smoker Start:14-Sep-2019 Instruction Type:Patient Education How to access health informa tion online - Detail Indication:Non-smoker Start:14-Sep-2019 Instruction Type:Patient Education Patient Instructions Indication:Non-smoker Start:14-Sep-2019 Instruction Type:Provider Instructions for Treatment How to access health informa tion online - Detail Indication:Non-smoker Start:18-Aug-2019 Instruction Type:Patient Education How to access health informa tion online Indication:Non-smoker Start:18-Aug-2019 Instruction Type:Patient Education Patient Instructions Indication:Non-smoker Start:18-Aug-2019 Instruction Type:Provider Instructions for Treatment How to access health informa tion online Indication:Non-smoker Start:08-Jun-2019 Instruction Type:Patient Education How to access health informa tion online - Detail Indication:Non-smoker Start:08-Jun-2019 Instruction Type:Patient Education Patient Instructions Indication:Non-smoker Start:08-Jun-2019 Instruction Type:Provider Instructions for Treatment How to access health informa tion online Indication:Nonsmoker Start:15-Sep-2018 Instruction Type:Patient Education How to access health informa tion online - Detail Indication:Nonsmoker Start:15-Sep-2018 Instruction Type:Patient Education Patient Instructions Indication:Nonsmoker Start:15-Sep-2018 Instruction Type:Provider Instructions for Treatment How to access health informa tion online Indication:[place]ills Start:12-Sep-2018 Instruction Type:Patient Education How to access health informa tion online - Detail Indication:Chills Start:12-Sep-2018 Instruction Type:Patient Education Patient Instructions Indication:Chills Start:12-Sep-2018 Instruction Type:Provider Instructions for Treatment How to access health informa tion online Indication:Nonsmoker Start:09-Jul-2018 Instruction Type:Patient Education How to access health informa tion online - Detail Indication:Nonsmoker Start:09-Jul-2018 Instruction Type:Patient Education Patient Instructions Indication:Nonsmoker Start:09-Jul-2018 Instruction Type:Provider Instructions for Treatment How to access health informa tion online Indication:Annual Medicare Physical (Renamed from Medicare annual wellness visit, subsequent) Start:21-Oct-2017 Instruction Type:Patient Education How to access health informa tion online - Detail Indication:Annual Medicare Physical (Renamed from Medicare annual wellness visit, subsequent) Start:21-Oct-2017 Instruction Type:Patient Education Patient Instructions Indication:Nonsmoker Start:21-Oct-2017 Instruction Type:Provider Instructions for Treatment How to access health informa tion online Indication:Conjunctivitis Start:18-Oct-2017 Instruction Type:Patient Education How to access health informa tion online - Detail Indication:Conjunctivitis Start:18-Oct-2017 Instruction Type:Patient Education Patient Instructions Indication:Conjunctivitis Start:18-Oct-2017 Instruction Type:Provider Instructions for Treatment How to access health informa tion online Indication:Hypertension, essential, benign Start:19-Aug-2017 Instruction Type:Patient Education How to access health informa tion online - Detail Indication:Hypertension, essential, benign Start:19-Aug-2017 Instruction Type:Patient Education Patient Instructions Indication:Hypertension, essential, benign Start:19-Aug-2017 Instruction Type:Provider Instructions for Treatment How to access health informa tion online Indication:Hypertension, essential, benign Start:12-Apr-2017 Instruction Type:Patient Education How to access health informa tion online - Detail Indication:Hypertension, essential, benign Start:12-Apr-2017 Instruction Type:Patient Education Patient Instructions Indication:Hypertension, essential, benign Start:12-Apr-2017 Instruction Type:Provider Instructions for Treatment Patient Instructions Indication:Hypertension, essential, benign Start:04-Jan-2017 Instruction Type:Provider Instructions for Treatment How to access health informa tion online Indication:Esophageal spasm Start:02-Oct-2016 Instruction Type:Patient Education How to access health informa tion online - Detail Indication:Esophageal spasm Start:02-Oct-2016 Instruction Type:Patient Education Patient Instructions Indication:Esophageal spasm Start:02-Oct-2016 Instruction Type:Provider Instructions for Treatment How to access health informa tion online Indication:Esophageal spasm Start:13-Feb-2016 Instruction Type:Patient Education How to access health informa tion online - Detail Indication:Esophageal spasm Start:13-Feb-2016 Instruction Type:Patient Education Patient Instructions Indication:Esophageal spasm Start:13-Feb-2016 Instruction Type:Provider Instructions for Treatment How to access health informa tion online Indication:Ear pain, right Start:31-Jan-2016 Instruction Type:Patient Education How to access health informa tion online - Detail Indication:Ear pain, right Start:31-Jan-2016 Instruction Type:Patient Education Patient Instructions Indication:Ear pain, right Start:31-Jan-2016 Instruction Type:Provider Instructions for Treatment How to access health informa tion online Indication:Dyspnea Start:13-Sep-2015 Instruction Type:Patient Education How to access health informa tion online - Detail Indication:Dyspnea Start:13-Sep-2015 Instruction Type:Patient Education Patient Instructions Indication:Dyspnea Start:13-Sep-2015 Instruction Type:Provider Instructions for Treatment How to access health informa tion online Indication:Osteoarthrosis, unspecified whether generalized or localized, other specified sites Start:14-Mar-2015 Instruction Type:Patient Education How to access health informa tion online - Detail Indication:Osteoarthrosis, unspecified whether generalized or localized, other specified sites Start:14-Mar-2015 Instruction Type:Patient Education Patient Instructions Indication:Osteoarthrosis, unspecified whether generalized or localized, other specified sites Start:14-Mar-2015 Instruction Type:Provider Instructions for Treatment How to access health informa tion online Indication:Hypertension, essential, benign Start:17-Jan-2015 Instruction Type:Patient Education How to access health informa tion online - Detail Indication:Hypertension, essential, benign Start:17-Jan-2015 Instruction Type:Patient Education Patient Instructions Indication:Hypertension, essential, benign Start:17-Jan-2015 Instruction Type:Provider Instructions for Treatment Patient Instructions Indication:Acute sinusitis, unspecified Start:20-May-2013 Instruction Type:Provider Instructions for Treatment Patient Instructions Indication:Hypertension, essential, benign Start:21-Apr-2013 Instruction Type:Provider Instructions for Treatment Patient Instructions Indication:Hypertension, essential, benign Start:23-Oct-2012 Instruction Type:Provider Instructions for Treatment [facility]; [facility] Work Phone: Instructions* Name Dates Details Patient Instructions Indication:Exposure to 2018 novel coronavirus Start:08-Nov-2021 Instruction Type:Provider Instructions for Treatment How to Access Health Informa tion Online using Patient Portal and [employer] Apps Indication:Exposure to 2019 novel coronavirus Start:08-Nov-2021 Instruction Type:Patient Education Patient Instructions Indication:Encounter for screening for malignant neoplasm of colon (Renamed from Special screening for malignant neoplasms, colon) Start:06-Sep-2021 Instruction Type:Provider Instructions for Treatment How to Access Health Informa tion Online using Patient Portal and [employer] Apps Indication:Non-smoker Start:06-Sep-2021 Instruction Type:Patient Education How to Access Health Informa tion Online using Patient Portal and [employer] Apps Indication:Sinusitis Start:22-Aug-2021 Instruction Type:Patient Education Patient Instructions Indication:Sinusitis Start:22-Aug-2021 Instruction Type:Provider Instructions for Treatment Patient Instructions get lab s Sep 01 fasting and follow up 4-7 days later Indication:Postmenopausal (Renamed from Postmenopausal status) Start:01-Mar-2021 Instruction Type:Provider Instructions for Treatment How to Access Health Informa tion Online using Patient Portal and [employer] Apps Indication:BMI 34.0-34.9,adult Start:01-Mar-2021 Instruction Type:Patient Education Patient Instructions Indication:Non-smoker Start:31-Aug-2020 Instruction Type:Provider Instructions for Treatment How to Access Health Informa tion Online using Patient Portal and [employer] Apps Indication:Non-smoker Start:31-Aug-2020 Instruction Type:Patient Education How to access health informa tion online Indication:BMI 33.0-33.9,adult Start:06-Jun-2020 Instruction Type:Patient Education How to access health informa tion online - Detail Indication:BMI 33.0-33.9,adult Start:06-Jun-2020 Instruction Type:Patient Education Patient Instructions Indication:BMI 33.0-33.9,adult Start:06-Jun-2020 Instruction Type:Provider Instructions for Treatment How to access health informa tion online Indication:Non-smoker Start:16-Mar-2020 Instruction Type:Patient Education How to access health informa tion online - Detail Indication:Non-smoker Start:16-Mar-2020 Instruction Type:Patient Education Patient Instructions Indication:BMI 33.0-33.9,adult Start:16-Mar-2020 Instruction Type:Provider Instructions for Treatment How to access health informa tion online Indication:Non-smoker Start:14-Sep-2019 Instruction Type:Patient Education How to access health informa tion online - Detail Indication:Non-smoker Start:14-Sep-2019 Instruction Type:Patient Education Patient Instructions Indication:Non-smoker Start:14-Sep-2019 Instruction Type:Provider Instructions for Treatment How to access health informa tion online - Detail Indication:Non-smoker Start:18-Aug-2019 Instruction Type:Patient Education How to access health informa tion online Indication:Non-smoker Start:18-Aug-2019 Instruction Type:Patient Education Patient Instructions Indication:Non-smoker Start:18-Aug-2019 Instruction Type:Provider Instructions for Treatment How to access health informa tion online Indication:Non-smoker Start:08-Jun-2019 Instruction Type:Patient Education How to access health informa tion online - Detail Indication:Non-smoker Start:08-Jun-2019 Instruction Type:Patient Education Patient Instructions Indication:Non-smoker Start:08-Jun-2019 Instruction Type:Provider Instructions for Treatment How to access health informa tion online Indication:Nonsmoker Start:15-Sep-2018 Instruction Type:Patient Education How to access health informa tion online - Detail Indication:Nonsmoker Start:15-Sep-2018 Instruction Type:Patient Education Patient Instructions Indication:Nonsmoker Start:15-Sep-2018 Instruction Type:Provider Instructions for Treatment How to access health informa tion online Indication:Chills Start:12-Sep-2018 Instruction Type:Patient Education How to access health informa tion online - Detail Indication:Chills Start:12-Sep-2018 Instruction Type:Patient Education Patient Instructions Indication:Chills Start:12-Sep-2018 Instruction Type:Provider Instructions for Treatment How to access health informa tion online Indication:Nonsmoker Start:09-Jul-2018 Instruction Type:Patient Education How to access health informa tion online - Detail Indication:Nonsmoker Start:09-Jul-2018 Instruction Type:Patient Education Patient Instructions Indication:Nonsmoker Start:09-Jul-2018 Instruction Type:Provider Instructions for Treatment How to access health informa tion online Indication:Annual Medicare Physical (Renamed from Medicare annual wellness visit, subsequent) Start:21-Oct-2017 Instruction Type:Patient Education How to access health informa tion online - Detail Indication:Annual Medicare Physical (Renamed from Medicare annual wellness visit, subsequent) Start:21-Oct-2017 Instruction Type:Patient Education Patient Instructions Indication:Nonsmoker Start:21-Oct-2017 Instruction Type:Provider Instructions for Treatment How to access health informa tion online Indication:Conjunctivitis Start:18-Oct-2017 Instruction Type:Patient Education How to access health informa tion online - Detail Indication:Conjunctivitis Start:18-Oct-2017 Instruction Type:Patient Education Patient Instructions Indication:Conjunctivitis Start:18-Oct-2017 Instruction Type:Provider Instructions for Treatment How to access health informa tion online Indication:Hypertension, essential, benign Start:19-Aug-2017 Instruction Type:Patient Education How to access health informa tion online - Detail Indication:Hypertension, essential, benign Start:19-Aug-2017 Instruction Type:Patient Education Patient Instructions Indication:Hypertension, essential, benign Start:19-Aug-2017 Instruction Type:Provider Instructions for Treatment How to access health informa tion online Indication:Hypertension, essential, benign Start:12-Apr-2017 Instruction Type:Patient Education How to access health informa tion online - Detail Indication:Hypertension, essential, benign Start:12-Apr-2017 Instruction Type:Patient Education Patient Instructions Indication:Hypertension, essential, benign Start:12-Apr-2017 Instruction Type:Provider Instructions for Treatment Patient Instructions Indication:Hypertension, essential, benign Start:04-Jan-2017 Instruction Type:Provider Instructions for Treatment How to access health informa tion online Indication:Esophageal spasm Start:02-Oct-2016 Instruction Type:Patient Education How to access health informa tion online - Detail Indication:Esophageal spasm Start:02-Oct-2016 Instruction Type:Patient Education Patient Instructions Indication:Esophageal spasm Start:02-Oct-2016 Instruction Type:Provider Instructions for Treatment How to access health informa tion online Indication:Esophageal spasm Start:13-Feb-2016 Instruction Type:Patient Education How to access health informa tion online - Detail Indication:Esophageal spasm Start:13-Feb-2016 Instruction Type:Patient Education Patient Instructions Indication:Esophageal spasm Start:13-Feb-2016 Instruction Type:Provider Instructions for Treatment How to access health informa tion online Indication:Ear pain, right Start:31-Jan-2016 Instruction Type:Patient Education How to access health informa tion online - Detail Indication:Ear pain, right Start:31-Jan-2016 Instruction Type:Patient Education Patient Instructions Indication:Ear pain, right Start:31-Jan-2016 Instruction Type:Provider Instructions for Treatment How to access health informa tion online Indication:Dyspnea Start:13-Sep-2015 Instruction Type:Patient Education How to access health informa tion online - Detail Indication:Dyspnea Start:13-Sep-2015 Instruction Type:Patient Education Patient Instructions Indication:Dyspnea Start:13-Sep-2015 Instruction Type:Provider Instructions for Treatment How to access health informa tion online Indication:Osteoarthrosis, unspecified whether generalized or localized, other specified sites Start:14-Mar-2015 Instruction Type:Patient Education How to access health informa tion online - Detail Indication:Osteoarthrosis, unspecified whether generalized or localized, other specified sites Start:14-Mar-2015 Instruction Type:Patient Education Patient Instructions Indication:Osteoarthrosis, unspecified whether generalized or localized, other specified sites Start:14-Mar-2015 Instruction Type:Provider Instructions for Treatment How to access health informa tion online Indication:Hypertension, essential, benign Start:17-Jan-2015 Instruction Type:Patient Education How to access health informa tion online - Detail Indication:Hypertension, essential, benign Start:17-Jan-2015 Instruction Type:Patient Education Patient Instructions Indication:Hypertension, essential, benign Start:17-Jan-2015 Instruction Type:Provider Instructions for Treatment Patient Instructions Indication:Acute sinusitis, unspecified Start:20-May-2013 Instruction Type:Provider Instructions for Treatment Patient Instructions Indication:Hypertension, essential, benign Start:21-Apr-2013 Instruction Type:Provider Instructions for Treatment Patient Instructions Indication:Hypertension, essential, benign Start:23-Oct-2012 Instruction Type:Provider Instructions for Treatment [facility]; [facility] Work Phone: Instructions* Name Dates Details Patient Instructions Indication:Exposure to 2018 novel coronavirus Start:08-Nov-2021 Instruction Type:Provider Instructions for Treatment How to Access Health Informa tion Online using Patient Portal and [employer] Indication:Exposure to 2018 novel coronavirus Start:08-Nov-2021 Instruction Type:Patient Education Patient Instructions Indication:Encounter for screening for malignant neoplasm of colon (Renamed from Special screening for malignant neoplasms, colon) Start:06-Sep-2021 Instruction Type:Provider Instructions for Treatment How to Access Health Informa tion Online using Patient Portal and [employer] Apps Indication:Non-smoker Start:06-Sep-2021 Instruction Type:Patient Education How to Access Health Informa tion Online using Patient Portal and [employer] Apps Indication:Sinusitis Start:22-Aug-2021 Instruction Type:Patient Education Patient Instructions Indication:Sinusitis Start:22-Aug-2021 Instruction Type:Provider Instructions for Treatment Patient Instructions get lab s Sep 01 fasting and follow up 4-7 days later Indication:Postmenopausal (Renamed from Postmenopausal status) Start:01-Mar-2021 Instruction Type:Provider Instructions for Treatment How to Access Health Informa tion Online using Patient Portal and [employer] Apps Indication:BMI 34.0-34.9,adult Start:01-Mar-2021 Instruction Type:Patient Education Patient Instructions Indication:Non-smoker Start:31-Aug-2020 Instruction Type:Provider Instructions for Treatment How to Access Health Informa tion Online using Patient Portal and [employer] Apps Indication:Non-smoker Start:31-Aug-2020 Instruction Type:Patient Education How to access health informa tion online Indication:BMI 33.0-33.9,adult Start:06-Jun-2020 Instruction Type:Patient Education How to access health informa tion online - Detail Indication:BMI 33.0-33.9,adult Start:06-Jun-2020 Instruction Type:Patient Education Patient Instructions Indication:BMI 33.0-33.9,adult Start:06-Jun-2020 Instruction Type:Provider Instructions for Treatment How to access health informa tion online Indication:Non-smoker Start:16-Mar-2020 Instruction Type:Patient Education How to access health informa tion online - Detail Indication:Non-smoker Start:16-Mar-2020 Instruction Type:Patient Education Patient Instructions Indication:BMI 33.0-33.9,adult Start:16-Mar-2020 Instruction Type:Provider Instructions for Treatment How to access health informa tion online Indication:Non-smoker Start:14-Sep-2019 Instruction Type:Patient Education How to access health informa tion online - Detail Indication:Non-smoker Start:14-Sep-2019 Instruction Type:Patient Education Patient Instructions Indication:Non-smoker Start:14-Sep-2019 Instruction Type:Provider Instructions for Treatment How to access health informa tion online - Detail Indication:Non-smoker Start:18-Aug-2019 Instruction Type:Patient Education How to access health informa tion online Indication:Non-smoker Start:18-Aug-2019 Instruction Type:Patient Education Patient Instructions Indication:Non-smoker Start:18-Aug-2019 Instruction Type:Provider Instructions for Treatment How to access health informa tion online Indication:Non-smoker Start:08-Jun-2019 Instruction Type:Patient Education How to access health informa tion online - Detail Indication:Non-smoker Start:08-Jun-2019 Instruction Type:Patient Education Patient Instructions Indication:Non-smoker Start:08-Jun-2019 Instruction Type:Provider Instructions for Treatment How to access health informa tion online Indication:Nonsmoker Start:15-Sep-2018 Instruction Type:Patient Education How to access health informa tion online - Detail Indication:Nonsmoker Start:15-Sep-2018 Instruction Type:Patient Education Patient Instructions Indication:Nonsmoker Start:15-Sep-2018 Instruction Type:Provider Instructions for Treatment How to access health informa tion online Indication:Chills Start:12-Sep-2018 Instruction Type:Patient Education How to access health informa tion online - Detail Indication:Chills Start:12-Sep-2018 Instruction Type:Patient Education Patient Instructions Indication:Chills Start:12-Sep-2018 Instruction Type:Provider Instructions for Treatment How to access health informa tion online Indication:Nonsmoker Start:09-Jul-2018 Instruction Type:Patient Education How to access health informa tion online - Detail Indication:Nonsmoker Start:09-Jul-2018 Instruction Type:Patient Education Patient Instructions Indication:Nonsmoker Start:09-Jul-2018 Instruction Type:Provider Instructions for Treatment How to access health informa tion online Indication:Annual Medicare Physical (Renamed from Medicare annual wellness visit, subsequent) Start:21-Oct-2017 Instruction Type:Patient Education How to access health informa tion online - Detail Indication:Annual Medicare Physical (Renamed from Medicare annual wellness visit, subsequent) Start:21-Oct-2017 Instruction Type:Patient Education Patient Instructions Indication:Nonsmoker Start:21-Oct-2017 Instruction Type:Provider Instructions for Treatment How to access health informa tion online Indication:Conjunctivitis Start:18-Oct-2017 Instruction Type:Patient Education How to access health informa tion online - Detail Indication:Conjunctivitis Start:18-Oct-2017 Instruction Type:Patient Education Patient Instructions Indication:Conjunctivitis Start:18-Oct-2017 Instruction Type:Provider Instructions for Treatment How to access health informa tion online Indication:Hypertension, essential, benign Start:19-Aug-2017 Instruction Type:Patient Education How to access health informa tion online - Detail Indication:Hypertension, essential, benign Start:19-Aug-2017 Instruction Type:Patient Education Patient Instructions Indication:Hypertension, essential, benign Start:19-Aug-2017 Instruction Type:Provider Instructions for Treatment How to access health informa tion online Indication:Hypertension, essential, benign Start:12-Apr-2017 Instruction Type:Patient Education How to access health informa tion online - Detail Indication:Hypertension, essential, benign Start:12-Apr-2017 Instruction Type:Patient Education Patient Instructions Indication:Hypertension, essential, benign Start:12-Apr-2017 Instruction Type:Provider Instructions for Treatment Patient Instructions Indication:Hypertension, essential, benign Start:04-Jan-2017 Instruction Type:Provider Instructions for Treatment How to access health informa tion online Indication:Esophageal spasm Start:02-Oct-2016 Instruction Type:Patient Education How to access health informa tion online - Detail Indication:Esophageal spasm Start:02-Oct-2016 Instruction Type:Patient Education Patient Instructions Indication:Esophageal spasm Start:02-Oct-2016 Instruction Type:Provider Instructions for Treatment How to access health informa tion online Indication:Esophageal spasm Start:13-Feb-2016 Instruction Type:Patient Education How to access health informa tion online - Detail Indication:Esophageal spasm Start:13-Feb-2016 Instruction Type:Patient Education Patient Instructions Indication:Esophageal spasm Start:13-Feb-2016 Instruction Type:Provider Instructions for Treatment How to access health informa tion online Indication:Ear pain, right Start:31-Jan-2016 Instruction Type:Patient Education How to access health informa tion online - Detail Indication:Ear pain, right Start:31-Jan-2016 Instruction Type:Patient Education Patient Instructions Indication:Ear pain, right Start:31-Jan-2016 Instruction Type:Provider Instructions for Treatment How to access health informa tion online Indication:Dyspnea Start:13-Sep-2015 Instruction Type:Patient Education How to access health informa tion online - Detail Indication:Dyspnea Start:13-Sep-2015 Instruction Type:Patient Education Patient Instructions Indication:Dyspnea Start:13-Sep-2015 Instruction Type:Provider Instructions for Treatment How to access health informa tion online Indication:Osteoarthrosis, unspecified whether generalized or localized, other specified sites Start:14-Mar-2015 Instruction Type:Patient Education How to access health informa tion online - Detail Indication:Osteoarthrosis, unspecified whether generalized or localized, other specified sites Start:14-Mar-2015 Instruction Type:Patient Education Patient Instructions Indication:Osteoarthrosis, unspecified whether generalized or localized, other specified sites Start:14-Mar-2015 Instruction Type:Provider Instructions for Treatment How to access health informa tion online Indication:Hypertension, essential, benign Start:17-Jan-2015 Instruction Type:Patient Education How to access health informa tion online - Detail Indication:Hypertension, essential, benign Start:17-Jan-2015 Instruction Type:Patient Education Patient Instructions Indication:Hypertension, essential, benign Start:17-Jan-2015 Instruction Type:Provider Instructions for Treatment Patient Instructions Indication:Acute sinusitis, unspecified Start:20-May-2013 Instruction Type:Provider Instructions for Treatment Patient Instructions Indication:Hypertension, essential, benign Start:21-Apr-2013 Instruction Type:Provider Instructions for Treatment Patient Instructions Indication:Hypertension, essential, benign Start:23-Oct-2012 Instruction Type:Provider Instructions for Treatment [facility] Work Phone: progress note No data available for this section [facility] Reason for referral (narrative)[facility] Work [facility]: Family History No Family History Records FoundUnknown Family Member Name Dates Details brother (Renamed from Asthma ) Comments:Brother. asthma, magan najera. CAD at 60's Status:Active Diabetes Mellitus Type II Comments:Sister. heart disea se age late 20's of DM Status:Active First Degree Relatives Comments:paternal aunt breas t cancer, another paternal aunt with Type II diabetes Status:Active Mother Comments:HTN Status:Active Sister 2 Comments:type II diabetes Status:Active Unknown Family Member Name Dates Details brother (Renamed from Asthma ) Comments:Brother. asthma, pa lindaker. CAD at 60's Status:Active Diabetes Mellitus Type II Comments:Sister. heart disea se age late 20's of DM Status:Active First Degree Relatives Comments:paternal aunt breas t cancer, another paternal aunt with Type II diabetes Status:Active Mother Comments:HTN Status:Active Sister 2 Comments:type II diabetes Status:Active Unknown Family Member Name Dates Details brother (Renamed from Asthma ) Comments:Brother. magan dominguez. CAD at 60's Status:Active Diabetes Mellitus Type II Comments:SisterAnusha camacho se age late 20's of DM Status:Active First Degree Relatives Comments:paternal aunt breas t cancer, another paternal aunt with Type II diabetes Status:Active Mother Comments:HTN Status:Active Sister 2 Comments:type II diabetes Status:Active Unknown Family Member Name Dates Details brother (Renamed from Asthma ) Comments:Brother. magan dominguez. CAD at 60's Status:Active Diabetes Mellitus Type II Comments:SisterAnusha camacho se age late 20's of DM Status:Active First Degree Relatives Comments:paternal aunt breas t cancer, another paternal aunt with Type II diabetes Status:Active Mother Comments:HTN Status:Active Sister 2 Comments:type II diabetes Status:Active Unknown Family Member Name Dates Details brother (Renamed from Asthma ) Comments:Brother. magan dominguez. CAD at 60's Status:Active Diabetes Mellitus Type II Comments:Sister. mirta camacho se age late 20's of DM Status:Active First Degree Relatives Comments:paternal aunt breas t cancer, another paternal aunt with Type II diabetes Status:Active Mother Comments:HTN Status:Active Sister 2 Comments:type II diabetes Status:Active Unknown Family Member Name Dates Details brother (Renamed from Asthma ) Comments:Brother. magan dominguez. CAD at 60's Status:Active Diabetes Mellitus Type II Comments:SisterAnusha camacho se age late 20's of DM Status:Active First Degree Relatives Comments:paternal aunt breas t cancer, another paternal aunt with Type II diabetes Status:Active Mother Comments:HTN Status:Active Sister 2 Comments:type II diabetes Status:Active Unknown Family Member Name Dates Details brother (Renamed from Asthma ) Comments:Brother. magan dominguez. CAD at 60's Status:Active Diabetes Mellitus Type II Comments:SisterAnusha camacho se age late 20's of DM Status:Active First Degree Relatives Comments:paternal aunt breas t cancer, another paternal aunt with Type II diabetes Status:Active Mother Comments:HTN Status:Active Sister 2 Comments:type II diabetes Status:Active Unknown Family Member Name Dates Details brother (Renamed from Asthma ) Comments:Brother. magan dominguez. CAD at 60's Status:Active Diabetes Mellitus Type II Comments:Sister. heart ryannea se age late 20's of DM Status:Active First Degree Relatives Comments:paternal aunt breas t cancer, another paternal aunt with Type II diabetes Status:Active Mother Comments:HTN Status:Active Sister 2 Comments:type II diabetes Status:Active Unknown Family Member Name Dates Details brother (Renamed from Asthma ) Comments:Brother. magan dominguez. CAD at 60's Status:Active Diabetes Mellitus Type II Comments:Sister. heart janice se age late 20's of DM Status:Active First Degree Relatives Comments:paternal aunt breas t cancer, another paternal aunt with Type II diabetes Status:Active Mother Comments:HTN Status:Active Sister 2 Comments:type II diabetes Status:Active Unknown Family Member Name Dates Details brother (Renamed from Asthma ) Comments:Brother. magan dominguez. CAD at 60's Status:Active Diabetes Mellitus Type II Comments:Sister. heart janice se age late 20's of DM Status:Active First Degree Relatives Comments:paternal aunt breas t cancer, another paternal aunt with Type II diabetes Status:Active Mother Comments:HTN Status:Active Sister 2 Comments:type II diabetes Status:Active Unknown Family Member Name Dates Details brother (Renamed from Asthma ) Comments:Brother. magan dominguez. CAD at 60's Status:Active Diabetes Mellitus Type II Comments:Sister. heart janice se age late 20's of DM Status:Active First Degree Relatives Comments:paternal aunt breas t cancer, another paternal aunt with Type II diabetes Status:Active Mother Comments:HTN Status:Active Sister 2 Comments:type II diabetes Status:Active Unknown Family Member Name Dates Details brother (Renamed from Asthma ) Comments:Brother. magan dominguez. CAD at 60's Status:Active Diabetes Mellitus Type II Comments:Sister. heart ryannea se age late 20's of DM Status:Active First Degree Relatives Comments:paternal aunt breas t cancer, another paternal aunt with Type II diabetes Status:Active Mother Comments:HTN Status:Active Sister 2 Comments:type II diabetes Status:Active Unknown Family Member Name Dates Details brother (Renamed from Asthma ) Comments:Brother. magan dominguez. CAD at 60's Status:Active Diabetes Mellitus Type II Comments:Sister. mirta camacho se age late 20's of DM Status:Active First Degree Relatives Comments:paternal aunt breas t cancer, another paternal aunt with Type II diabetes Status:Active Mother Comments:HTN Status:Active Sister 2 Comments:type II diabetes Status:Active Unknown Family Member Name Dates Details brother (Renamed from Asthma ) Comments:Brother. magan dominguez. CAD at 60's Status:Active Diabetes Mellitus Type II Comments:SisterAnusha camacho se age late 20's of DM Status:Active First Degree Relatives Comments:paternal aunt breas t cancer, another paternal aunt with Type II diabetes Status:Active Mother Comments:HTN Status:Active Sister 2 Comments:type II diabetes Status:Active Unknown Family Member Name Dates Details brother (Renamed from Asthma ) Comments:Brother. magan dominguez. CAD at 60's Status:Active Diabetes Mellitus Type II Comments:SisterAnusha heart janice rasmussen age late 20's of DM Status:Active First Degree Relatives Comments:paternal aunt breas t cancer, another paternal aunt with Type II diabetes Status:Active Mother Comments:HTN Status:Active Sister 2 Comments:type II diabetes Status:Active Unknown Family Member Name Dates Details brother (Renamed from Asthma ) Comments:Brother. magan dominguez. CAD at 60's Status:Active Diabetes Mellitus Type II Comments:SisterAnusha camacho se age late 20's of DM Status:Active First Degree Relatives Comments:paternal aunt breas t cancer, another paternal aunt with Type II diabetes Status:Active Mother Comments:HTN Status:Active Sister 2 Comments:type II diabetes Status:Active Unknown Family Member Name Dates Details brother (Renamed from Asthma ) Comments:Brother. magan dominguez. CAD at 60's Status:Active Diabetes Mellitus Type II Comments:SisterAnusha camacho se age late 20's of DM Status:Active First Degree Relatives Comments:paternal aunt breas t cancer, another paternal aunt with Type II diabetes Status:Active Mother Comments:HTN Status:Active Sister 2 Comments:type II diabetes Status:Active Unknown Family Member Name Dates Details brother (Renamed from Asthma ) Comments:Brother. magan dominguez. CAD at 60's Status:Active Diabetes Mellitus Type II Comments:Sister. mirta camacho se age late 20's of DM Status:Active First Degree Relatives Comments:paternal aunt breas t cancer, another paternal aunt with Type II diabetes Status:Active Mother Comments:HTN Status:Active Sister 2 Comments:type II diabetes Status:Active Unknown Family Member Name Dates Details brother (Renamed from Asthma ) Comments:Brother. asthmamagan. CAD at 60's Status:Active Diabetes Mellitus Type II Comments:SisterAnusha camacho se age late 20's of DM Status:Active First Degree Relatives Comments:paternal aunt breas t cancer, another paternal aunt with Type II diabetes Status:Active Mother Comments:HTN Status:Active Sister 2 Comments:type II diabetes Status:Active Unknown Family Member Name Dates Details brother (Renamed from Asthma ) Comments:Brother. magan dominguez. CAD at 60's Status:Active Diabetes Mellitus Type II Comments:Sister. mirta camacho se age late 20's of DM Status:Active First Degree Relatives Comments:paternal aunt breas t cancer, another paternal aunt with Type II diabetes Status:Active Mother Comments:HTN Status:Active Sister 2 Comments:type II diabetes Status:Active Unknown Family Member Name Dates Details brother (Renamed from Asthma ) Comments:Brother. asthmamagan. CAD at 60's Status:Active Diabetes Mellitus Type II Comments:SisterAnusha camacho se age late 20's of DM Status:Active First Degree Relatives Comments:paternal aunt breas t cancer, another paternal aunt with Type II diabetes Status:Active Mother Comments:HTN Status:Active Sister 2 Comments:type II diabetes Status:Active Unknown Family Member Name Dates Details brother (Renamed from Asthma ) Comments:Brother. asthmamagan. CAD at 60's Status:Active Diabetes Mellitus Type II Comments:Sister. mirta camacho se age late 20's of DM Status:Active First Degree Relatives Comments:paternal aunt breas t cancer, another paternal aunt with Type II diabetes Status:Active Mother Comments:HTN Status:Active Sister 2 Comments:type II diabetes Status:Active Relationship Condition Age at Onset Recorded Date/T susan sister Diabetes mellitus Unknown brother Coronary artery disease Unknown Presence of cardiac pacemaker Unknown Asthma Unknown Cardiac disease Unknown mother Hypertension Unknown Disorder of thyroid Unknown Instructions Name Dates Details Nonsmoker : How to access he alth information online Indication:Nonsmoker Nonsmoker : How to access he alth information online - Detail Indication:Nonsmoker Nonsmoker : Patient Instruct ions Indication:Nonsmoker Annual Medicare Physical (Re named from Medicare annual wellness visit, subsequent) : How to access health information online Indication:Annual Medicare Physical (Renamed from Medicare annual wellness visit, subsequent) Annual Medicare Physical (Re named from Medicare annual wellness visit, subsequent) : How to access health information online - Detail Indication:Annual Medicare Physical (Renamed from Medicare annual wellness visit, subsequent) Conjunctivitis : How to acce ss health information online Indication:Conjunctivitis Conjunctivitis : How to acce ss health information online - Detail Indication:Conjunctivitis Conjunctivitis : Patient Ins tructions Indication:Conjunctivitis Hypertension, essential, armen ign : How to access health information online Indication:Hypertension, essential, benign Hypertension, essential, armen ign : How to access health information online - Detail Indication:Hypertension, essential, benign Hypertension, essential, armen ign : Patient Instructions Indication:Hypertension, essential, benign Esophageal spasm : How to ac cess health information online Indication:Esophageal spasm Esophageal spasm : How to ac cess health information online - Detail Indication:Esophageal spasm Esophageal spasm : Patient I nstructions Indication:Esophageal spasm Ear pain, right : How to acc ess health information online Indication:Ear pain, right Ear pain, right : How to acc ess health information online - Detail Indication:Ear pain, right Ear pain, right : Patient In structions Indication:Ear pain, right Dyspnea : How to access heal th information online Indication:Dyspnea Dyspnea : How to access heal th information online - Detail Indication:Dyspnea Dyspnea : Patient Instructio ns Indication:Dyspnea Osteoarthrosis, unspecified whether generalized or localized, other specified sites : How to access health information online Indication:Osteoarthrosis, unspecified whether generalized or localized, other specified sites Osteoarthrosis, unspecified whether generalized or localized, other specified sites : How to access health information online - Detail Indication:Osteoarthrosis, unspecified whether generalized or localized, other specified sites Osteoarthrosis, unspecified whether generalized or localized, other specified sites : Patient Instructions Indication:Osteoarthrosis, unspecified whether generalized or localized, other specified sites Acute sinusitis, unspecified : Patient Instructions Indication:Acute sinusitis, unspecified Name Dates Details Chills : How to access healt h information online Indication:Chills Chills : How to access healt h information online - Detail Indication:Chills Chills : Patient Instruction s Indication:Chills Nonsmoker : How to access he alth information online Indication:Nonsmoker Nonsmoker : How to access he alth information online - Detail Indication:Nonsmoker Nonsmoker : Patient Instruct ions Indication:Nonsmoker Annual Medicare Physical (Re named from Medicare annual wellness visit, subsequent) : How to access health information online Indication:Annual Medicare Physical (Renamed from Medicare annual wellness visit, subsequent) Annual Medicare Physical (Re named from Medicare annual wellness visit, subsequent) : How to access health information online - Detail Indication:Annual Medicare Physical (Renamed from Medicare annual wellness visit, subsequent) Conjunctivitis : How to acce ss health information online Indication:Conjunctivitis Conjunctivitis : How to acce ss health information online - Detail Indication:Conjunctivitis Conjunctivitis : Patient Ins tructions Indication:Conjunctivitis Hypertension, essential, armen ign : How to access health information online Indication:Hypertension, essential, benign Hypertension, essential, armen ign : How to access health information online - Detail Indication:Hypertension, essential, benign Hypertension, essential, armen ign : Patient Instructions Indication:Hypertension, essential, benign Esophageal spasm : How to ac cess health information online Indication:Esophageal spasm Esophageal spasm : How to ac cess health information online - Detail Indication:Esophageal spasm Esophageal spasm : Patient I nstructions Indication:Esophageal spasm Ear pain, right : How to acc ess health information online Indication:Ear pain, right Ear pain, right : How to acc ess health information online - Detail Indication:Ear pain, right Ear pain, right : Patient In structions Indication:Ear pain, right Dyspnea : How to access heal th information online Indication:Dyspnea Dyspnea : How to access heal th information online - Detail Indication:Dyspnea Dyspnea : Patient Instructio ns Indication:Dyspnea Osteoarthrosis, unspecified whether generalized or localized, other specified sites : How to access health information online Indication:Osteoarthrosis, unspecified whether generalized or localized, other specified sites Osteoarthrosis, unspecified whether generalized or localized, other specified sites : How to access health information online - Detail Indication:Osteoarthrosis, unspecified whether generalized or localized, other specified sites Osteoarthrosis, unspecified whether generalized or localized, other specified sites : Patient Instructions Indication:Osteoarthrosis, unspecified whether generalized or localized, other specified sites Acute sinusitis, unspecified : Patient Instructions Indication:Acute sinusitis, unspecified Name Dates Details Chills : How to access healt h information online Indication:Chills Chills : How to access healt h information online - Detail Indication:Chills Chills : Patient Instruction s Indication:Chills Nonsmoker : How to access he alth information online Indication:Nonsmoker Nonsmoker : How to access he alth information online - Detail Indication:Nonsmoker Nonsmoker : Patient Instruct ions Indication:Nonsmoker Annual Medicare Physical (Re named from Medicare annual wellness visit, subsequent) : How to access health information online Indication:Annual Medicare Physical (Renamed from Medicare annual wellness visit, subsequent) Annual Medicare Physical (Re named from Medicare annual wellness visit, subsequent) : How to access health information online - Detail Indication:Annual Medicare Physical (Renamed from Medicare annual wellness visit, subsequent) Conjunctivitis : How to acce ss health information online Indication:Conjunctivitis Conjunctivitis : How to acce ss health information online - Detail Indication:Conjunctivitis Conjunctivitis : Patient Ins tructions Indication:Conjunctivitis Hypertension, essential, armen ign : How to access health information online Indication:Hypertension, essential, benign Hypertension, essential, armen ign : How to access health information online - Detail Indication:Hypertension, essential, benign Hypertension, essential, armen ign : Patient Instructions Indication:Hypertension, essential, benign Esophageal spasm : How to ac cess health information online Indication:Esophageal spasm Esophageal spasm : How to ac cess health information online - Detail Indication:Esophageal spasm Esophageal spasm : Patient I nstructions Indication:Esophageal spasm Ear pain, right : How to acc ess health information online Indication:Ear pain, right Ear pain, right : How to acc ess health information online - Detail Indication:Ear pain, right Ear pain, right : Patient In structions Indication:Ear pain, right Dyspnea : How to access heal th information online Indication:Dyspnea Dyspnea : How to access heal th information online - Detail Indication:Dyspnea Dyspnea : Patient Instructio ns Indication:Dyspnea Osteoarthrosis, unspecified whether generalized or localized, other specified sites : How to access health information online Indication:Osteoarthrosis, unspecified whether generalized or localized, other specified sites Osteoarthrosis, unspecified whether generalized or localized, other specified sites : How to access health information online - Detail Indication:Osteoarthrosis, unspecified whether generalized or localized, other specified sites Osteoarthrosis, unspecified whether generalized or localized, other specified sites : Patient Instructions Indication:Osteoarthrosis, unspecified whether generalized or localized, other specified sites Acute sinusitis, unspecified : Patient Instructions Indication:Acute sinusitis, unspecified Name Dates Details Chills : How to access healt h information online Indication:Chills Chills : How to access healt h information online - Detail Indication:Chills Chills : Patient Instruction s Indication:Chills Nonsmoker : How to access he alth information online Indication:Nonsmoker Nonsmoker : How to access he alth information online - Detail Indication:Nonsmoker Nonsmoker : Patient Instruct ions Indication:Nonsmoker Annual Medicare Physical (Re named from Medicare annual wellness visit, subsequent) : How to access health information online Indication:Annual Medicare Physical (Renamed from Medicare annual wellness visit, subsequent) Annual Medicare Physical (Re named from Medicare annual wellness visit, subsequent) : How to access health information online - Detail Indication:Annual Medicare Physical (Renamed from Medicare annual wellness visit, subsequent) Conjunctivitis : How to acce ss health information online Indication:Conjunctivitis Conjunctivitis : How to acce ss health information online - Detail Indication:Conjunctivitis Conjunctivitis : Patient Ins tructions Indication:Conjunctivitis Hypertension, essential, armen ign : How to access health information online Indication:Hypertension, essential, benign Hypertension, essential, armen ign : How to access health information online - Detail Indication:Hypertension, essential, benign Hypertension, essential, armen ign : Patient Instructions Indication:Hypertension, essential, benign Esophageal spasm : How to ac cess health information online Indication:Esophageal spasm Esophageal spasm : How to ac cess health information online - Detail Indication:Esophageal spasm Esophageal spasm : Patient I nstructions Indication:Esophageal spasm Ear pain, right : How to acc ess health information online Indication:Ear pain, right Ear pain, right : How to acc ess health information online - Detail Indication:Ear pain, right Ear pain, right : Patient In structions Indication:Ear pain, right Dyspnea : How to access heal th information online Indication:Dyspnea Dyspnea : How to access heal th information online - Detail Indication:Dyspnea Dyspnea : Patient Instructio ns Indication:Dyspnea Osteoarthrosis, unspecified whether generalized or localized, other specified sites : How to access health information online Indication:Osteoarthrosis, unspecified whether generalized or localized, other specified sites Osteoarthrosis, unspecified whether generalized or localized, other specified sites : How to access health information online - Detail Indication:Osteoarthrosis, unspecified whether generalized or localized, other specified sites Osteoarthrosis, unspecified whether generalized or localized, other specified sites : Patient Instructions Indication:Osteoarthrosis, unspecified whether generalized or localized, other specified sites Acute sinusitis, unspecified : Patient Instructions Indication:Acute sinusitis, unspecified Name Dates Details Nonsmoker : How to access he alth information online Indication:Nonsmoker Nonsmoker : How to access he alth information online - Detail Indication:Nonsmoker Nonsmoker : Patient Instruct ions Indication:Nonsmoker Chills : How to access healt h information online Indication:Chills Chills : How to access healt h information online - Detail Indication:Chills Chills : Patient Instruction s Indication:Chills Annual Medicare Physical (Re named from Medicare annual wellness visit, subsequent) : How to access health information online Indication:Annual Medicare Physical (Renamed from Medicare annual wellness visit, subsequent) Annual Medicare Physical (Re named from Medicare annual wellness visit, subsequent) : How to access health information online - Detail Indication:Annual Medicare Physical (Renamed from Medicare annual wellness visit, subsequent) Conjunctivitis : How to acce ss health information online Indication:Conjunctivitis Conjunctivitis : How to acce ss health information online - Detail Indication:Conjunctivitis Conjunctivitis : Patient Ins tructions Indication:Conjunctivitis Hypertension, essential, armen ign : How to access health information online Indication:Hypertension, essential, benign Hypertension, essential, armen ign : How to access health information online - Detail Indication:Hypertension, essential, benign Hypertension, essential, armen ign : Patient Instructions Indication:Hypertension, essential, benign Esophageal spasm : How to ac cess health information online Indication:Esophageal spasm Esophageal spasm : How to ac cess health information online - Detail Indication:Esophageal spasm Esophageal spasm : Patient I nstructions Indication:Esophageal spasm Ear pain, right : How to acc ess health information online Indication:Ear pain, right Ear pain, right : How to acc ess health information online - Detail Indication:Ear pain, right Ear pain, right : Patient In structions Indication:Ear pain, right Dyspnea : How to access heal th information online Indication:Dyspnea Dyspnea : How to access heal th information online - Detail Indication:Dyspnea Dyspnea : Patient Instructio ns Indication:Dyspnea Osteoarthrosis, unspecified whether generalized or localized, other specified sites : How to access health information online Indication:Osteoarthrosis, unspecified whether generalized or localized, other specified sites Osteoarthrosis, unspecified whether generalized or localized, other specified sites : How to access health information online - Detail Indication:Osteoarthrosis, unspecified whether generalized or localized, other specified sites Osteoarthrosis, unspecified whether generalized or localized, other specified sites : Patient Instructions Indication:Osteoarthrosis, unspecified whether generalized or localized, other specified sites Acute sinusitis, unspecified : Patient Instructions Indication:Acute sinusitis, unspecified Name Dates Details How to access health informa tion online Indication:Nonsmoker Start:15-Sep-2018 Instruction Type:Patient Education How to access health informa tion online - Detail Indication:Nonsmoker Start:15-Sep-2018 Instruction Type:Patient Education Patient Instructions Indication:Nonsmoker Start:15-Sep-2018 Instruction Type:Provider Instructions for Treatment How to access health informa tion online Indication:Chills Start:12-Sep-2018 Instruction Type:Patient Education How to access health informa tion online - Detail Indication:Chills Start:12-Sep-2018 Instruction Type:Patient Education Patient Instructions Indication:Chills Start:12-Sep-2018 Instruction Type:Provider Instructions for Treatment How to access health informa tion online Indication:Nonsmoker Start:09-Jul-2018 Instruction Type:Patient Education How to access health informa tion online - Detail Indication:Nonsmoker Start:09-Jul-2018 Instruction Type:Patient Education Patient Instructions Indication:Nonsmoker Start:09-Jul-2018 Instruction Type:Provider Instructions for Treatment How to access health informa tion online Indication:Annual Medicare Physical (Renamed from Medicare annual wellness visit, subsequent) Start:21-Oct-2017 Instruction Type:Patient Education How to access health informa tion online - Detail Indication:Annual Medicare Physical (Renamed from Medicare annual wellness visit, subsequent) Start:21-Oct-2017 Instruction Type:Patient Education Patient Instructions Indication:Nonsmoker Start:21-Oct-2017 Instruction Type:Provider Instructions for Treatment How to access health informa tion online Indication:Conjunctivitis Start:18-Oct-2017 Instruction Type:Patient Education How to access health informa tion online - Detail Indication:Conjunctivitis Start:18-Oct-2017 Instruction Type:Patient Education Patient Instructions Indication:Conjunctivitis Start:18-Oct-2017 Instruction Type:Provider Instructions for Treatment How to access health informa tion online Indication:Hypertension, essential, benign Start:19-Aug-2017 Instruction Type:Patient Education How to access health informa tion online - Detail Indication:Hypertension, essential, benign Start:19-Aug-2017 Instruction Type:Patient Education Patient Instructions Indication:Hypertension, essential, benign Start:19-Aug-2017 Instruction Type:Provider Instructions for Treatment How to access health informa tion online Indication:Hypertension, essential, benign Start:12-Apr-2017 Instruction Type:Patient Education How to access health informa tion online - Detail Indication:Hypertension, essential, benign Start:12-Apr-2017 Instruction Type:Patient Education Patient Instructions Indication:Hypertension, essential, benign Start:12-Apr-2017 Instruction Type:Provider Instructions for Treatment Patient Instructions Indication:Hypertension, essential, benign Start:04-Jan-2017 Instruction Type:Provider Instructions for Treatment How to access health informa tion online Indication:Esophageal spasm Start:02-Oct-2016 Instruction Type:Patient Education How to access health informa tion online - Detail Indication:Esophageal spasm Start:02-Oct-2016 Instruction Type:Patient Education Patient Instructions Indication:Esophageal spasm Start:02-Oct-2016 Instruction Type:Provider Instructions for Treatment How to access health informa tion online Indication:Esophageal spasm Start:13-Feb-2016 Instruction Type:Patient Education How to access health informa tion online - Detail Indication:Esophageal spasm Start:13-Feb-2016 Instruction Type:Patient Education Patient Instructions Indication:Esophageal spasm Start:13-Feb-2016 Instruction Type:Provider Instructions for Treatment How to access health informa tion online Indication:Ear pain, right Start:31-Jan-2016 Instruction Type:Patient Education How to access health informa tion online - Detail Indication:Ear pain, right Start:31-Jan-2016 Instruction Type:Patient Education Patient Instructions Indication:Ear pain, right Start:31-Jan-2016 Instruction Type:Provider Instructions for Treatment How to access health informa tion online Indication:Dyspnea Start:13-Sep-2015 Instruction Type:Patient Education How to access health informa tion online - Detail Indication:Dyspnea Start:13-Sep-2015 Instruction Type:Patient Education Patient Instructions Indication:Dyspnea Start:13-Sep-2015 Instruction Type:Provider Instructions for Treatment How to access health informa tion online Indication:Osteoarthrosis, unspecified whether generalized or localized, other specified sites Start:14-Mar-2015 Instruction Type:Patient Education How to access health informa tion online - Detail Indication:Osteoarthrosis, unspecified whether generalized or localized, other specified sites Start:14-Mar-2015 Instruction Type:Patient Education Patient Instructions Indication:Osteoarthrosis, unspecified whether generalized or localized, other specified sites Start:14-Mar-2015 Instruction Type:Provider Instructions for Treatment How to access health informa tion online Indication:Hypertension, essential, benign Start:17-Jan-2015 Instruction Type:Patient Education How to access health informa tion online - Detail Indication:Hypertension, essential, benign Start:17-Jan-2015 Instruction Type:Patient Education Patient Instructions Indication:Hypertension, essential, benign Start:17-Jan-2015 Instruction Type:Provider Instructions for Treatment Patient Instructions Indication:Acute sinusitis, unspecified Start:20-May-2013 Instruction Type:Provider Instructions for Treatment Patient Instructions Indication:Hypertension, essential, benign Start:21-Apr-2013 Instruction Type:Provider Instructions for Treatment Patient Instructions Indication:Hypertension, essential, benign Start:23-Oct-2012 Instruction Type:Provider Instructions for Treatment Name Dates Details How to access health informa tion online Indication:Non-smoker Start:14-Sep-2019 Instruction Type:Patient Education How to access health informa tion online - Detail Indication:Non-smoker Start:14-Sep-2019 Instruction Type:Patient Education Patient Instructions Indication:Non-smoker Start:14-Sep-2019 Instruction Type:Provider Instructions for Treatment How to access health informa tion online - Detail Indication:Non-smoker Start:18-Aug-2019 Instruction Type:Patient Education How to access health informa tion online Indication:Non-smoker Start:18-Aug-2019 Instruction Type:Patient Education Patient Instructions Indication:Non-smoker Start:18-Aug-2019 Instruction Type:Provider Instructions for Treatment How to access health informa tion online Indication:Non-smoker Start:08-Jun-2019 Instruction Type:Patient Education How to access health informa tion online - Detail Indication:Non-smoker Start:08-Jun-2019 Instruction Type:Patient Education Patient Instructions Indication:Non-smoker Start:08-Jun-2019 Instruction Type:Provider Instructions for Treatment How to access health informa tion online Indication:Nonsmoker Start:15-Sep-2018 Instruction Type:Patient Education How to access health informa tion online - Detail Indication:Nonsmoker Start:15-Sep-2018 Instruction Type:Patient Education Patient Instructions Indication:Nonsmoker Start:15-Sep-2018 Instruction Type:Provider Instructions for Treatment How to access health informa tion online Indication:Chills Start:12-Sep-2018 Instruction Type:Patient Education How to access health informa tion online - Detail Indication:Chills Start:12-Sep-2018 Instruction Type:Patient Education Patient Instructions Indication:Chills Start:12-Sep-2018 Instruction Type:Provider Instructions for Treatment How to access health informa tion online Indication:Nonsmoker Start:09-Jul-2018 Instruction Type:Patient Education How to access health informa tion online - Detail Indication:Nonsmoker Start:09-Jul-2018 Instruction Type:Patient Education Patient Instructions Indication:Nonsmoker Start:09-Jul-2018 Instruction Type:Provider Instructions for Treatment How to access health informa tion online Indication:Annual Medicare Physical (Renamed from Medicare annual wellness visit, subsequent) Start:21-Oct-2017 Instruction Type:Patient Education How to access health informa tion online - Detail Indication:Annual Medicare Physical (Renamed from Medicare annual wellness visit, subsequent) Start:21-Oct-2017 Instruction Type:Patient Education Patient Instructions Indication:Nonsmoker Start:21-Oct-2017 Instruction Type:Provider Instructions for Treatment How to access health informa tion online Indication:Conjunctivitis Start:18-Oct-2017 Instruction Type:Patient Education How to access health informa tion online - Detail Indication:Conjunctivitis Start:18-Oct-2017 Instruction Type:Patient Education Patient Instructions Indication:Conjunctivitis Start:18-Oct-2017 Instruction Type:Provider Instructions for Treatment How to access health informa tion online Indication:Hypertension, essential, benign Start:19-Aug-2017 Instruction Type:Patient Education How to access health informa tion online - Detail Indication:Hypertension, essential, benign Start:19-Aug-2017 Instruction Type:Patient Education Patient Instructions Indication:Hypertension, essential, benign Start:19-Aug-2017 Instruction Type:Provider Instructions for Treatment How to access health informa tion online Indication:Hypertension, essential, benign Start:12-Apr-2017 Instruction Type:Patient Education How to access health informa tion online - Detail Indication:Hypertension, essential, benign Start:12-Apr-2017 Instruction Type:Patient Education Patient Instructions Indication:Hypertension, essential, benign Start:12-Apr-2017 Instruction Type:Provider Instructions for Treatment Patient Instructions Indication:Hypertension, essential, benign Start:04-Jan-2017 Instruction Type:Provider Instructions for Treatment How to access health informa tion online Indication:Esophageal spasm Start:02-Oct-2016 Instruction Type:Patient Education How to access health informa tion online - Detail Indication:Esophageal spasm Start:02-Oct-2016 Instruction Type:Patient Education Patient Instructions Indication:Esophageal spasm Start:02-Oct-2016 Instruction Type:Provider Instructions for Treatment How to access health informa tion online Indication:Esophageal spasm Start:13-Feb-2016 Instruction Type:Patient Education How to access health informa tion online - Detail Indication:Esophageal spasm Start:13-Feb-2016 Instruction Type:Patient Education Patient Instructions Indication:Esophageal spasm Start:13-Feb-2016 Instruction Type:Provider Instructions for Treatment How to access health informa tion online Indication:Ear pain, right Start:31-Jan-2016 Instruction Type:Patient Education How to access health informa tion online - Detail Indication:Ear pain, right Start:31-Jan-2016 Instruction Type:Patient Education Patient Instructions Indication:Ear pain, right Start:31-Jan-2016 Instruction Type:Provider Instructions for Treatment How to access health informa tion online Indication:Dyspnea Start:13-Sep-2015 Instruction Type:Patient Education How to access health informa tion online - Detail Indication:Dyspnea Start:13-Sep-2015 Instruction Type:Patient Education Patient Instructions Indication:Dyspnea Start:13-Sep-2015 Instruction Type:Provider Instructions for Treatment How to access health informa tion online Indication:Osteoarthrosis, unspecified whether generalized or localized, other specified sites Start:14-Mar-2015 Instruction Type:Patient Education How to access health informa tion online - Detail Indication:Osteoarthrosis, unspecified whether generalized or localized, other specified sites Start:14-Mar-2015 Instruction Type:Patient Education Patient Instructions Indication:Osteoarthrosis, unspecified whether generalized or localized, other specified sites Start:14-Mar-2015 Instruction Type:Provider Instructions for Treatment How to access health informa tion online Indication:Hypertension, essential, benign Start:17-Jan-2015 Instruction Type:Patient Education How to access health informa tion online - Detail Indication:Hypertension, essential, benign Start:17-Jan-2015 Instruction Type:Patient Education Patient Instructions Indication:Hypertension, essential, benign Start:17-Jan-2015 Instruction Type:Provider Instructions for Treatment Patient Instructions Indication:Acute sinusitis, unspecified Start:20-May-2013 Instruction Type:Provider Instructions for Treatment Patient Instructions Indication:Hypertension, essential, benign Start:21-Apr-2013 Instruction Type:Provider Instructions for Treatment Patient Instructions Indication:Hypertension, essential, benign Start:23-Oct-2012 Instruction Type:Provider Instructions for Treatment Name Dates Details How to access health informa tion online Indication:Non-smoker Start:16-Mar-2020 Instruction Type:Patient Education How to access health informa tion online - Detail Indication:Non-smoker Start:16-Mar-2020 Instruction Type:Patient Education Patient Instructions Indication:Non-smoker Start:16-Mar-2020 Instruction Type:Provider Instructions for Treatment How to access health informa tion online Indication:Non-smoker Start:14-Sep-2019 Instruction Type:Patient Education How to access health informa tion online - Detail Indication:Non-smoker Start:14-Sep-2019 Instruction Type:Patient Education Patient Instructions Indication:Non-smoker Start:14-Sep-2019 Instruction Type:Provider Instructions for Treatment How to access health informa tion online - Detail Indication:Non-smoker Start:18-Aug-2019 Instruction Type:Patient Education How to access health informa tion online Indication:Non-smoker Start:18-Aug-2019 Instruction Type:Patient Education Patient Instructions Indication:Non-smoker Start:18-Aug-2019 Instruction Type:Provider Instructions for Treatment How to access health informa tion online Indication:Non-smoker Start:08-Jun-2019 Instruction Type:Patient Education How to access health informa tion online - Detail Indication:Non-smoker Start:08-Jun-2019 Instruction Type:Patient Education Patient Instructions Indication:Non-smoker Start:08-Jun-2019 Instruction Type:Provider Instructions for Treatment How to access health informa tion online Indication:Nonsmoker Start:15-Sep-2018 Instruction Type:Patient Education How to access health informa tion online - Detail Indication:Nonsmoker Start:15-Sep-2018 Instruction Type:Patient Education Patient Instructions Indication:Nonsmoker Start:15-Sep-2018 Instruction Type:Provider Instructions for Treatment How to access health informa tion online Indication:Chills Start:12-Sep-2018 Instruction Type:Patient Education How to access health informa tion online - Detail Indication:Chills Start:12-Sep-2018 Instruction Type:Patient Education Patient Instructions Indication:Chills Start:12-Sep-2018 Instruction Type:Provider Instructions for Treatment How to access health informa tion online Indication:Nonsmoker Start:09-Jul-2018 Instruction Type:Patient Education How to access health informa tion online - Detail Indication:Nonsmoker Start:09-Jul-2018 Instruction Type:Patient Education Patient Instructions Indication:Nonsmoker Start:09-Jul-2018 Instruction Type:Provider Instructions for Treatment How to access health informa tion online Indication:Annual Medicare Physical (Renamed from Medicare annual wellness visit, subsequent) Start:21-Oct-2017 Instruction Type:Patient Education How to access health informa tion online - Detail Indication:Annual Medicare Physical (Renamed from Medicare annual wellness visit, subsequent) Start:21-Oct-2017 Instruction Type:Patient Education Patient Instructions Indication:Nonsmoker Start:21-Oct-2017 Instruction Type:Provider Instructions for Treatment How to access health informa tion online Indication:Conjunctivitis Start:18-Oct-2017 Instruction Type:Patient Education How to access health informa tion online - Detail Indication:Conjunctivitis Start:18-Oct-2017 Instruction Type:Patient Education Patient Instructions Indication:Conjunctivitis Start:18-Oct-2017 Instruction Type:Provider Instructions for Treatment How to access health informa tion online Indication:Hypertension, essential, benign Start:19-Aug-2017 Instruction Type:Patient Education How to access health informa tion online - Detail Indication:Hypertension, essential, benign Start:19-Aug-2017 Instruction Type:Patient Education Patient Instructions Indication:Hypertension, essential, benign Start:19-Aug-2017 Instruction Type:Provider Instructions for Treatment How to access health informa tion online Indication:Hypertension, essential, benign Start:12-Apr-2017 Instruction Type:Patient Education How to access health informa tion online - Detail Indication:Hypertension, essential, benign Start:12-Apr-2017 Instruction Type:Patient Education Patient Instructions Indication:Hypertension, essential, benign Start:12-Apr-2017 Instruction Type:Provider Instructions for Treatment Patient Instructions Indication:Hypertension, essential, benign Start:04-Jan-2017 Instruction Type:Provider Instructions for Treatment How to access health informa tion online Indication:Esophageal spasm Start:02-Oct-2016 Instruction Type:Patient Education How to access health informa tion online - Detail Indication:Esophageal spasm Start:02-Oct-2016 Instruction Type:Patient Education Patient Instructions Indication:Esophageal spasm Start:02-Oct-2016 Instruction Type:Provider Instructions for Treatment How to access health informa tion online Indication:Esophageal spasm Start:13-Feb-2016 Instruction Type:Patient Education How to access health informa tion online - Detail Indication:Esophageal spasm Start:13-Feb-2016 Instruction Type:Patient Education Patient Instructions Indication:Esophageal spasm Start:13-Feb-2016 Instruction Type:Provider Instructions for Treatment How to access health informa tion online Indication:Ear pain, right Start:31-Jan-2016 Instruction Type:Patient Education How to access health informa tion online - Detail Indication:Ear pain, right Start:31-Jan-2016 Instruction Type:Patient Education Patient Instructions Indication:Ear pain, right Start:31-Jan-2016 Instruction Type:Provider Instructions for Treatment How to access health informa tion online Indication:Dyspnea Start:13-Sep-2015 Instruction Type:Patient Education How to access health informa tion online - Detail Indication:Dyspnea Start:13-Sep-2015 Instruction Type:Patient Education Patient Instructions Indication:Dyspnea Start:13-Sep-2015 Instruction Type:Provider Instructions for Treatment How to access health informa tion online Indication:Osteoarthrosis, unspecified whether generalized or localized, other specified sites Start:14-Mar-2015 Instruction Type:Patient Education How to access health informa tion online - Detail Indication:Osteoarthrosis, unspecified whether generalized or localized, other specified sites Start:14-Mar-2015 Instruction Type:Patient Education Patient Instructions Indication:Osteoarthrosis, unspecified whether generalized or localized, other specified sites Start:14-Mar-2015 Instruction Type:Provider Instructions for Treatment How to access health informa tion online Indication:Hypertension, essential, benign Start:17-Jan-2015 Instruction Type:Patient Education How to access health informa tion online - Detail Indication:Hypertension, essential, benign Start:17-Jan-2015 Instruction Type:Patient Education Patient Instructions Indication:Hypertension, essential, benign Start:17-Jan-2015 Instruction Type:Provider Instructions for Treatment Patient Instructions Indication:Acute sinusitis, unspecified Start:20-May-2013 Instruction Type:Provider Instructions for Treatment Patient Instructions Indication:Hypertension, essential, benign Start:21-Apr-2013 Instruction Type:Provider Instructions for Treatment Patient Instructions Indication:Hypertension, essential, benign Start:23-Oct-2012 Instruction Type:Provider Instructions for Treatment Name Dates Details How to access health informa tion online Indication:Non-smoker Start:16-Mar-2020 Instruction Type:Patient Education How to access health informa tion online - Detail Indication:Non-smoker Start:16-Mar-2020 Instruction Type:Patient Education Patient Instructions Indication:BMI 33.0-33.9,adult Start:16-Mar-2020 Instruction Type:Provider Instructions for Treatment How to access health informa tion online Indication:Non-smoker Start:14-Sep-2019 Instruction Type:Patient Education How to access health informa tion online - Detail Indication:Non-smoker Start:14-Sep-2019 Instruction Type:Patient Education Patient Instructions Indication:Non-smoker Start:14-Sep-2019 Instruction Type:Provider Instructions for Treatment How to access health informa tion online - Detail Indication:Non-smoker Start:18-Aug-2019 Instruction Type:Patient Education How to access health informa tion online Indication:Non-smoker Start:18-Aug-2019 Instruction Type:Patient Education Patient Instructions Indication:Non-smoker Start:18-Aug-2019 Instruction Type:Provider Instructions for Treatment How to access health informa tion online Indication:Non-smoker Start:08-Jun-2019 Instruction Type:Patient Education How to access health informa tion online - Detail Indication:Non-smoker Start:08-Jun-2019 Instruction Type:Patient Education Patient Instructions Indication:Non-smoker Start:08-Jun-2019 Instruction Type:Provider Instructions for Treatment How to access health informa tion online Indication:Nonsmoker Start:15-Sep-2018 Instruction Type:Patient Education How to access health informa tion online - Detail Indication:Nonsmoker Start:15-Sep-2018 Instruction Type:Patient Education Patient Instructions Indication:Nonsmoker Start:15-Sep-2018 Instruction Type:Provider Instructions for Treatment How to access health informa tion online Indication:Chills Start:12-Sep-2018 Instruction Type:Patient Education How to access health informa tion online - Detail Indication:Chills Start:12-Sep-2018 Instruction Type:Patient Education Patient Instructions Indication:Chills Start:12-Sep-2018 Instruction Type:Provider Instructions for Treatment How to access health informa tion online Indication:Nonsmoker Start:09-Jul-2018 Instruction Type:Patient Education How to access health informa tion online - Detail Indication:Nonsmoker Start:09-Jul-2018 Instruction Type:Patient Education Patient Instructions Indication:Nonsmoker Start:09-Jul-2018 Instruction Type:Provider Instructions for Treatment How to access health informa tion online Indication:Annual Medicare Physical (Renamed from Medicare annual wellness visit, subsequent) Start:21-Oct-2017 Instruction Type:Patient Education How to access health informa tion online - Detail Indication:Annual Medicare Physical (Renamed from Medicare annual wellness visit, subsequent) Start:21-Oct-2017 Instruction Type:Patient Education Patient Instructions Indication:Nonsmoker Start:21-Oct-2017 Instruction Type:Provider Instructions for Treatment How to access health informa tion online Indication:Conjunctivitis Start:18-Oct-2017 Instruction Type:Patient Education How to access health informa tion online - Detail Indication:Conjunctivitis Start:18-Oct-2017 Instruction Type:Patient Education Patient Instructions Indication:Conjunctivitis Start:18-Oct-2017 Instruction Type:Provider Instructions for Treatment How to access health informa tion online Indication:Hypertension, essential, benign Start:19-Aug-2017 Instruction Type:Patient Education How to access health informa tion online - Detail Indication:Hypertension, essential, benign Start:19-Aug-2017 Instruction Type:Patient Education Patient Instructions Indication:Hypertension, essential, benign Start:19-Aug-2017 Instruction Type:Provider Instructions for Treatment How to access health informa tion online Indication:Hypertension, essential, benign Start:12-Apr-2017 Instruction Type:Patient Education How to access health informa tion online - Detail Indication:Hypertension, essential, benign Start:12-Apr-2017 Instruction Type:Patient Education Patient Instructions Indication:Hypertension, essential, benign Start:12-Apr-2017 Instruction Type:Provider Instructions for Treatment Patient Instructions Indication:Hypertension, essential, benign Start:04-Jan-2017 Instruction Type:Provider Instructions for Treatment How to access health informa tion online Indication:Esophageal spasm Start:02-Oct-2016 Instruction Type:Patient Education How to access health informa tion online - Detail Indication:Esophageal spasm Start:02-Oct-2016 Instruction Type:Patient Education Patient Instructions Indication:Esophageal spasm Start:02-Oct-2016 Instruction Type:Provider Instructions for Treatment How to access health informa tion online Indication:Esophageal spasm Start:13-Feb-2016 Instruction Type:Patient Education How to access health informa tion online - Detail Indication:Esophageal spasm Start:13-Feb-2016 Instruction Type:Patient Education Patient Instructions Indication:Esophageal spasm Start:13-Feb-2016 Instruction Type:Provider Instructions for Treatment How to access health informa tion online Indication:Ear pain, right Start:31-Jan-2016 Instruction Type:Patient Education How to access health informa tion online - Detail Indication:Ear pain, right Start:31-Jan-2016 Instruction Type:Patient Education Patient Instructions Indication:Ear pain, right Start:31-Jan-2016 Instruction Type:Provider Instructions for Treatment How to access health informa tion online Indication:Dyspnea Start:13-Sep-2015 Instruction Type:Patient Education How to access health informa tion online - Detail Indication:Dyspnea Start:13-Sep-2015 Instruction Type:Patient Education Patient Instructions Indication:Dyspnea Start:13-Sep-2015 Instruction Type:Provider Instructions for Treatment How to access health informa tion online Indication:Osteoarthrosis, unspecified whether generalized or localized, other specified sites Start:14-Mar-2015 Instruction Type:Patient Education How to access health informa tion online - Detail Indication:Osteoarthrosis, unspecified whether generalized or localized, other specified sites Start:14-Mar-2015 Instruction Type:Patient Education Patient Instructions Indication:Osteoarthrosis, unspecified whether generalized or localized, other specified sites Start:14-Mar-2015 Instruction Type:Provider Instructions for Treatment How to access health informa tion online Indication:Hypertension, essential, benign Start:17-Jan-2015 Instruction Type:Patient Education How to access health informa tion online - Detail Indication:Hypertension, essential, benign Start:17-Jan-2015 Instruction Type:Patient Education Patient Instructions Indication:Hypertension, essential, benign Start:17-Jan-2015 Instruction Type:Provider Instructions for Treatment Patient Instructions Indication:Acute sinusitis, unspecified Start:20-May-2013 Instruction Type:Provider Instructions for Treatment Patient Instructions Indication:Hypertension, essential, benign Start:21-Apr-2013 Instruction Type:Provider Instructions for Treatment Patient Instructions Indication:Hypertension, essential, benign Start:23-Oct-2012 Instruction Type:Provider Instructions for Treatment Name Dates Details How to access health informa tion online Indication:Non-smoker Start:16-Mar-2020 Instruction Type:Patient Education How to access health informa tion online - Detail Indication:Non-smoker Start:16-Mar-2020 Instruction Type:Patient Education Patient Instructions Indication:BMI 33.0-33.9,adult Start:16-Mar-2020 Instruction Type:Provider Instructions for Treatment How to access health informa tion online Indication:Non-smoker Start:14-Sep-2019 Instruction Type:Patient Education How to access health informa tion online - Detail Indication:Non-smoker Start:14-Sep-2019 Instruction Type:Patient Education Patient Instructions Indication:Non-smoker Start:14-Sep-2019 Instruction Type:Provider Instructions for Treatment How to access health informa tion online - Detail Indication:Non-smoker Start:18-Aug-2019 Instruction Type:Patient Education How to access health informa tion online Indication:Non-smoker Start:18-Aug-2019 Instruction Type:Patient Education Patient Instructions Indication:Non-smoker Start:18-Aug-2019 Instruction Type:Provider Instructions for Treatment How to access health informa tion online Indication:Non-smoker Start:08-Jun-2019 Instruction Type:Patient Education How to access health informa tion online - Detail Indication:Non-smoker Start:08-Jun-2019 Instruction Type:Patient Education Patient Instructions Indication:Non-smoker Start:08-Jun-2019 Instruction Type:Provider Instructions for Treatment How to access health informa tion online Indication:Nonsmoker Start:15-Sep-2018 Instruction Type:Patient Education How to access health informa tion online - Detail Indication:Nonsmoker Start:15-Sep-2018 Instruction Type:Patient Education Patient Instructions Indication:Nonsmoker Start:15-Sep-2018 Instruction Type:Provider Instructions for Treatment How to access health informa tion online Indication:Chills Start:12-Sep-2018 Instruction Type:Patient Education How to access health informa tion online - Detail Indication:Chills Start:12-Sep-2018 Instruction Type:Patient Education Patient Instructions Indication:Chills Start:12-Sep-2018 Instruction Type:Provider Instructions for Treatment How to access health informa tion online Indication:Nonsmoker Start:09-Jul-2018 Instruction Type:Patient Education How to access health informa tion online - Detail Indication:Nonsmoker Start:09-Jul-2018 Instruction Type:Patient Education Patient Instructions Indication:Nonsmoker Start:09-Jul-2018 Instruction Type:Provider Instructions for Treatment How to access health informa tion online Indication:Annual Medicare Physical (Renamed from Medicare annual wellness visit, subsequent) Start:21-Oct-2017 Instruction Type:Patient Education How to access health informa tion online - Detail Indication:Annual Medicare Physical (Renamed from Medicare annual wellness visit, subsequent) Start:21-Oct-2017 Instruction Type:Patient Education Patient Instructions Indication:Nonsmoker Start:21-Oct-2017 Instruction Type:Provider Instructions for Treatment How to access health informa tion online Indication:Conjunctivitis Start:18-Oct-2017 Instruction Type:Patient Education How to access health informa tion online - Detail Indication:Conjunctivitis Start:18-Oct-2017 Instruction Type:Patient Education Patient Instructions Indication:Conjunctivitis Start:18-Oct-2017 Instruction Type:Provider Instructions for Treatment How to access health informa tion online Indication:Hypertension, essential, benign Start:19-Aug-2017 Instruction Type:Patient Education How to access health informa tion online - Detail Indication:Hypertension, essential, benign Start:19-Aug-2017 Instruction Type:Patient Education Patient Instructions Indication:Hypertension, essential, benign Start:19-Aug-2017 Instruction Type:Provider Instructions for Treatment How to access health informa tion online Indication:Hypertension, essential, benign Start:12-Apr-2017 Instruction Type:Patient Education How to access health informa tion online - Detail Indication:Hypertension, essential, benign Start:12-Apr-2017 Instruction Type:Patient Education Patient Instructions Indication:Hypertension, essential, benign Start:12-Apr-2017 Instruction Type:Provider Instructions for Treatment Patient Instructions Indication:Hypertension, essential, benign Start:04-Jan-2017 Instruction Type:Provider Instructions for Treatment How to access health informa tion online Indication:Esophageal spasm Start:02-Oct-2016 Instruction Type:Patient Education How to access health informa tion online - Detail Indication:Esophageal spasm Start:02-Oct-2016 Instruction Type:Patient Education Patient Instructions Indication:Esophageal spasm Start:02-Oct-2016 Instruction Type:Provider Instructions for Treatment How to access health informa tion online Indication:Esophageal spasm Start:13-Feb-2016 Instruction Type:Patient Education How to access health informa tion online - Detail Indication:Esophageal spasm Start:13-Feb-2016 Instruction Type:Patient Education Patient Instructions Indication:Esophageal spasm Start:13-Feb-2016 Instruction Type:Provider Instructions for Treatment How to access health informa tion online Indication:Ear pain, right Start:31-Jan-2016 Instruction Type:Patient Education How to access health informa tion online - Detail Indication:Ear pain, right Start:31-Jan-2016 Instruction Type:Patient Education Patient Instructions Indication:Ear pain, right Start:31-Jan-2016 Instruction Type:Provider Instructions for Treatment How to access health informa tion online Indication:Dyspnea Start:13-Sep-2015 Instruction Type:Patient Education How to access health informa tion online - Detail Indication:Dyspnea Start:13-Sep-2015 Instruction Type:Patient Education Patient Instructions Indication:Dyspnea Start:13-Sep-2015 Instruction Type:Provider Instructions for Treatment How to access health informa tion online Indication:Osteoarthrosis, unspecified whether generalized or localized, other specified sites Start:14-Mar-2015 Instruction Type:Patient Education How to access health informa tion online - Detail Indication:Osteoarthrosis, unspecified whether generalized or localized, other specified sites Start:14-Mar-2015 Instruction Type:Patient Education Patient Instructions Indication:Osteoarthrosis, unspecified whether generalized or localized, other specified sites Start:14-Mar-2015 Instruction Type:Provider Instructions for Treatment How to access health informa tion online Indication:Hypertension, essential, benign Start:17-Jan-2015 Instruction Type:Patient Education How to access health informa tion online - Detail Indication:Hypertension, essential, benign Start:17-Jan-2015 Instruction Type:Patient Education Patient Instructions Indication:Hypertension, essential, benign Start:17-Jan-2015 Instruction Type:Provider Instructions for Treatment Patient Instructions Indication:Acute sinusitis, unspecified Start:20-May-2013 Instruction Type:Provider Instructions for Treatment Patient Instructions Indication:Hypertension, essential, benign Start:21-Apr-2013 Instruction Type:Provider Instructions for Treatment Patient Instructions Indication:Hypertension, essential, benign Start:23-Oct-2012 Instruction Type:Provider Instructions for Treatment Name Dates Details How to access health informa tion online Indication:BMI 33.0-33.9,adult Start:06-Jun-2020 Instruction Type:Patient Education How to access health informa tion online - Detail Indication:BMI 33.0-33.9,adult Start:06-Jun-2020 Instruction Type:Patient Education Patient Instructions Indication:BMI 33.0-33.9,adult Start:06-Jun-2020 Instruction Type:Provider Instructions for Treatment How to access health informa tion online Indication:Non-smoker Start:16-Mar-2020 Instruction Type:Patient Education How to access health informa tion online - Detail Indication:Non-smoker Start:16-Mar-2020 Instruction Type:Patient Education Patient Instructions Indication:BMI 33.0-33.9,adult Start:16-Mar-2020 Instruction Type:Provider Instructions for Treatment How to access health informa tion online Indication:Non-smoker Start:14-Sep-2019 Instruction Type:Patient Education How to access health informa tion online - Detail Indication:Non-smoker Start:14-Sep-2019 Instruction Type:Patient Education Patient Instructions Indication:Non-smoker Start:14-Sep-2019 Instruction Type:Provider Instructions for Treatment How to access health informa tion online - Detail Indication:Non-smoker Start:18-Aug-2019 Instruction Type:Patient Education How to access health informa tion online Indication:Non-smoker Start:18-Aug-2019 Instruction Type:Patient Education Patient Instructions Indication:Non-smoker Start:18-Aug-2019 Instruction Type:Provider Instructions for Treatment How to access health informa tion online Indication:Non-smoker Start:08-Jun-2019 Instruction Type:Patient Education How to access health informa tion online - Detail Indication:Non-smoker Start:08-Jun-2019 Instruction Type:Patient Education Patient Instructions Indication:Non-smoker Start:08-Jun-2019 Instruction Type:Provider Instructions for Treatment How to access health informa tion online Indication:Nonsmoker Start:15-Sep-2018 Instruction Type:Patient Education How to access health informa tion online - Detail Indication:Nonsmoker Start:15-Sep-2018 Instruction Type:Patient Education Patient Instructions Indication:Nonsmoker Start:15-Sep-2018 Instruction Type:Provider Instructions for Treatment How to access health informa tion online Indication:Chills Start:12-Sep-2018 Instruction Type:Patient Education How to access health informa tion online - Detail Indication:Chills Start:12-Sep-2018 Instruction Type:Patient Education Patient Instructions Indication:Chills Start:12-Sep-2018 Instruction Type:Provider Instructions for Treatment How to access health informa tion online Indication:Nonsmoker Start:09-Jul-2018 Instruction Type:Patient Education How to access health informa tion online - Detail Indication:Nonsmoker Start:09-Jul-2018 Instruction Type:Patient Education Patient Instructions Indication:Nonsmoker Start:09-Jul-2018 Instruction Type:Provider Instructions for Treatment How to access health informa tion online Indication:Annual Medicare Physical (Renamed from Medicare annual wellness visit, subsequent) Start:21-Oct-2017 Instruction Type:Patient Education How to access health informa tion online - Detail Indication:Annual Medicare Physical (Renamed from Medicare annual wellness visit, subsequent) Start:21-Oct-2017 Instruction Type:Patient Education Patient Instructions Indication:Nonsmoker Start:21-Oct-2017 Instruction Type:Provider Instructions for Treatment How to access health informa tion online Indication:Conjunctivitis Start:18-Oct-2017 Instruction Type:Patient Education How to access health informa tion online - Detail Indication:Conjunctivitis Start:18-Oct-2017 Instruction Type:Patient Education Patient Instructions Indication:Conjunctivitis Start:18-Oct-2017 Instruction Type:Provider Instructions for Treatment How to access health informa tion online Indication:Hypertension, essential, benign Start:19-Aug-2017 Instruction Type:Patient Education How to access health informa tion online - Detail Indication:Hypertension, essential, benign Start:19-Aug-2017 Instruction Type:Patient Education Patient Instructions Indication:Hypertension, essential, benign Start:19-Aug-2017 Instruction Type:Provider Instructions for Treatment How to access health informa tion online Indication:Hypertension, essential, benign Start:12-Apr-2017 Instruction Type:Patient Education How to access health informa tion online - Detail Indication:Hypertension, essential, benign Start:12-Apr-2017 Instruction Type:Patient Education Patient Instructions Indication:Hypertension, essential, benign Start:12-Apr-2017 Instruction Type:Provider Instructions for Treatment Patient Instructions Indication:Hypertension, essential, benign Start:04-Jan-2017 Instruction Type:Provider Instructions for Treatment How to access health informa tion online Indication:Esophageal spasm Start:02-Oct-2016 Instruction Type:Patient Education How to access health informa tion online - Detail Indication:Esophageal spasm Start:02-Oct-2016 Instruction Type:Patient Education Patient Instructions Indication:Esophageal spasm Start:02-Oct-2016 Instruction Type:Provider Instructions for Treatment How to access health informa tion online Indication:Esophageal spasm Start:13-Feb-2016 Instruction Type:Patient Education How to access health informa tion online - Detail Indication:Esophageal spasm Start:13-Feb-2016 Instruction Type:Patient Education Patient Instructions Indication:Esophageal spasm Start:13-Feb-2016 Instruction Type:Provider Instructions for Treatment How to access health informa tion online Indication:Ear pain, right Start:31-Jan-2016 Instruction Type:Patient Education How to access health informa tion online - Detail Indication:Ear pain, right Start:31-Jan-2016 Instruction Type:Patient Education Patient Instructions Indication:Ear pain, right Start:31-Jan-2016 Instruction Type:Provider Instructions for Treatment How to access health informa tion online Indication:Dyspnea Start:13-Sep-2015 Instruction Type:Patient Education How to access health informa tion online - Detail Indication:Dyspnea Start:13-Sep-2015 Instruction Type:Patient Education Patient Instructions Indication:Dyspnea Start:13-Sep-2015 Instruction Type:Provider Instructions for Treatment How to access health informa tion online Indication:Osteoarthrosis, unspecified whether generalized or localized, other specified sites Start:14-Mar-2015 Instruction Type:Patient Education How to access health informa tion online - Detail Indication:Osteoarthrosis, unspecified whether generalized or localized, other specified sites Start:14-Mar-2015 Instruction Type:Patient Education Patient Instructions Indication:Osteoarthrosis, unspecified whether generalized or localized, other specified sites Start:14-Mar-2015 Instruction Type:Provider Instructions for Treatment How to access health informa tion online Indication:Hypertension, essential, benign Start:17-Jan-2015 Instruction Type:Patient Education How to access health informa tion online - Detail Indication:Hypertension, essential, benign Start:17-Jan-2015 Instruction Type:Patient Education Patient Instructions Indication:Hypertension, essential, benign Start:17-Jan-2015 Instruction Type:Provider Instructions for Treatment Patient Instructions Indication:Acute sinusitis, unspecified Start:20-May-2013 Instruction Type:Provider Instructions for Treatment Patient Instructions Indication:Hypertension, essential, benign Start:21-Apr-2013 Instruction Type:Provider Instructions for Treatment Patient Instructions Indication:Hypertension, essential, benign Start:23-Oct-2012 Instruction Type:Provider Instructions for Treatment Name Dates Details How to access health informa tion online Indication:BMI 33.0-33.9,adult Start:06-Jun-2020 Instruction Type:Patient Education How to access health informa tion online - Detail Indication:BMI 33.0-33.9,adult Start:06-Jun-2020 Instruction Type:Patient Education Patient Instructions Indication:BMI 33.0-33.9,adult Start:06-Jun-2020 Instruction Type:Provider Instructions for Treatment How to access health informa tion online Indication:Non-smoker Start:16-Mar-2020 Instruction Type:Patient Education How to access health informa tion online - Detail Indication:Non-smoker Start:16-Mar-2020 Instruction Type:Patient Education Patient Instructions Indication:BMI 33.0-33.9,adult Start:16-Mar-2020 Instruction Type:Provider Instructions for Treatment How to access health informa tion online Indication:Non-smoker Start:14-Sep-2019 Instruction Type:Patient Education How to access health informa tion online - Detail Indication:Non-smoker Start:14-Sep-2019 Instruction Type:Patient Education Patient Instructions Indication:Non-smoker Start:14-Sep-2019 Instruction Type:Provider Instructions for Treatment How to access health informa tion online - Detail Indication:Non-smoker Start:18-Aug-2019 Instruction Type:Patient Education How to access health informa tion online Indication:Non-smoker Start:18-Aug-2019 Instruction Type:Patient Education Patient Instructions Indication:Non-smoker Start:18-Aug-2019 Instruction Type:Provider Instructions for Treatment How to access health informa tion online Indication:Non-smoker Start:08-Jun-2019 Instruction Type:Patient Education How to access health informa tion online - Detail Indication:Non-smoker Start:08-Jun-2019 Instruction Type:Patient Education Patient Instructions Indication:Non-smoker Start:08-Jun-2019 Instruction Type:Provider Instructions for Treatment How to access health informa tion online Indication:Nonsmoker Start:15-Sep-2018 Instruction Type:Patient Education How to access health informa tion online - Detail Indication:Nonsmoker Start:15-Sep-2018 Instruction Type:Patient Education Patient Instructions Indication:Nonsmoker Start:15-Sep-2018 Instruction Type:Provider Instructions for Treatment How to access health informa tion online Indication:Chills Start:12-Sep-2018 Instruction Type:Patient Education How to access health informa tion online - Detail Indication:Chills Start:12-Sep-2018 Instruction Type:Patient Education Patient Instructions Indication:Chills Start:12-Sep-2018 Instruction Type:Provider Instructions for Treatment How to access health informa tion online Indication:Nonsmoker Start:09-Jul-2018 Instruction Type:Patient Education How to access health informa tion online - Detail Indication:Nonsmoker Start:09-Jul-2018 Instruction Type:Patient Education Patient Instructions Indication:Nonsmoker Start:09-Jul-2018 Instruction Type:Provider Instructions for Treatment How to access health informa tion online Indication:Annual Medicare Physical (Renamed from Medicare annual wellness visit, subsequent) Start:21-Oct-2017 Instruction Type:Patient Education How to access health informa tion online - Detail Indication:Annual Medicare Physical (Renamed from Medicare annual wellness visit, subsequent) Start:21-Oct-2017 Instruction Type:Patient Education Patient Instructions Indication:Nonsmoker Start:21-Oct-2017 Instruction Type:Provider Instructions for Treatment How to access health informa tion online Indication:Conjunctivitis Start:18-Oct-2017 Instruction Type:Patient Education How to access health informa tion online - Detail Indication:Conjunctivitis Start:18-Oct-2017 Instruction Type:Patient Education Patient Instructions Indication:Conjunctivitis Start:18-Oct-2017 Instruction Type:Provider Instructions for Treatment How to access health informa tion online Indication:Hypertension, essential, benign Start:19-Aug-2017 Instruction Type:Patient Education How to access health informa tion online - Detail Indication:Hypertension, essential, benign Start:19-Aug-2017 Instruction Type:Patient Education Patient Instructions Indication:Hypertension, essential, benign Start:19-Aug-2017 Instruction Type:Provider Instructions for Treatment How to access health informa tion online Indication:Hypertension, essential, benign Start:12-Apr-2017 Instruction Type:Patient Education How to access health informa tion online - Detail Indication:Hypertension, essential, benign Start:12-Apr-2017 Instruction Type:Patient Education Patient Instructions Indication:Hypertension, essential, benign Start:12-Apr-2017 Instruction Type:Provider Instructions for Treatment Patient Instructions Indication:Hypertension, essential, benign Start:04-Jan-2017 Instruction Type:Provider Instructions for Treatment How to access health informa tion online Indication:Esophageal spasm Start:02-Oct-2016 Instruction Type:Patient Education How to access health informa tion online - Detail Indication:Esophageal spasm Start:02-Oct-2016 Instruction Type:Patient Education Patient Instructions Indication:Esophageal spasm Start:02-Oct-2016 Instruction Type:Provider Instructions for Treatment How to access health informa tion online Indication:Esophageal spasm Start:13-Feb-2016 Instruction Type:Patient Education How to access health informa tion online - Detail Indication:Esophageal spasm Start:13-Feb-2016 Instruction Type:Patient Education Patient Instructions Indication:Esophageal spasm Start:13-Feb-2016 Instruction Type:Provider Instructions for Treatment How to access health informa tion online Indication:Ear pain, right Start:31-Jan-2016 Instruction Type:Patient Education How to access health informa tion online - Detail Indication:Ear pain, right Start:31-Jan-2016 Instruction Type:Patient Education Patient Instructions Indication:Ear pain, right Start:31-Jan-2016 Instruction Type:Provider Instructions for Treatment How to access health informa tion online Indication:Dyspnea Start:13-Sep-2015 Instruction Type:Patient Education How to access health informa tion online - Detail Indication:Dyspnea Start:13-Sep-2015 Instruction Type:Patient Education Patient Instructions Indication:Dyspnea Start:13-Sep-2015 Instruction Type:Provider Instructions for Treatment How to access health informa tion online Indication:Osteoarthrosis, unspecified whether generalized or localized, other specified sites Start:14-Mar-2015 Instruction Type:Patient Education How to access health informa tion online - Detail Indication:Osteoarthrosis, unspecified whether generalized or localized, other specified sites Start:14-Mar-2015 Instruction Type:Patient Education Patient Instructions Indication:Osteoarthrosis, unspecified whether generalized or localized, other specified sites Start:14-Mar-2015 Instruction Type:Provider Instructions for Treatment How to access health informa tion online Indication:Hypertension, essential, benign Start:17-Jan-2015 Instruction Type:Patient Education How to access health informa tion online - Detail Indication:Hypertension, essential, benign Start:17-Jan-2015 Instruction Type:Patient Education Patient Instructions Indication:Hypertension, essential, benign Start:17-Jan-2015 Instruction Type:Provider Instructions for Treatment Patient Instructions Indication:Acute sinusitis, unspecified Start:20-May-2013 Instruction Type:Provider Instructions for Treatment Patient Instructions Indication:Hypertension, essential, benign Start:21-Apr-2013 Instruction Type:Provider Instructions for Treatment Patient Instructions Indication:Hypertension, essential, benign Start:23-Oct-2012 Instruction Type:Provider Instructions for Treatment Name Dates Details Nonsmoker : How to access he alth information online Indication:Nonsmoker Nonsmoker : How to access he alth information online - Detail Indication:Nonsmoker Nonsmoker : Patient Instruct ions Indication:Nonsmoker Chills : How to access healt h information online Indication:Chills Chills : How to access healt h information online - Detail Indication:Chills Chills : Patient Instruction s Indication:Chills Annual Medicare Physical (Re named from Medicare annual wellness visit, subsequent) : How to access health information online Indication:Annual Medicare Physical (Renamed from Medicare annual wellness visit, subsequent) Annual Medicare Physical (Re named from Medicare annual wellness visit, subsequent) : How to access health information online - Detail Indication:Annual Medicare Physical (Renamed from Medicare annual wellness visit, subsequent) Conjunctivitis : How to acce ss health information online Indication:Conjunctivitis Conjunctivitis : How to acce ss health information online - Detail Indication:Conjunctivitis Conjunctivitis : Patient Ins tructions Indication:Conjunctivitis Hypertension, essential, armen ign : How to access health information online Indication:Hypertension, essential, benign Hypertension, essential, armen ign : How to access health information online - Detail Indication:Hypertension, essential, benign Hypertension, essential, armen ign : Patient Instructions Indication:Hypertension, essential, benign Esophageal spasm : How to ac cess health information online Indication:Esophageal spasm Esophageal spasm : How to ac cess health information online - Detail Indication:Esophageal spasm Esophageal spasm : Patient I nstructions Indication:Esophageal spasm Ear pain, right : How to acc ess health information online Indication:Ear pain, right Ear pain, right : How to acc ess health information online - Detail Indication:Ear pain, right Ear pain, right : Patient In structions Indication:Ear pain, right Dyspnea : How to access heal th information online Indication:Dyspnea Dyspnea : How to access heal th information online - Detail Indication:Dyspnea Dyspnea : Patient Instructio ns Indication:Dyspnea Osteoarthrosis, unspecified whether generalized or localized, other specified sites : How to access health information online Indication:Osteoarthrosis, unspecified whether generalized or localized, other specified sites Osteoarthrosis, unspecified whether generalized or localized, other specified sites : How to access health information online - Detail Indication:Osteoarthrosis, unspecified whether generalized or localized, other specified sites Osteoarthrosis, unspecified whether generalized or localized, other specified sites : Patient Instructions Indication:Osteoarthrosis, unspecified whether generalized or localized, other specified sites Acute sinusitis, unspecified : Patient Instructions Indication:Acute sinusitis, unspecified Name Dates Details How to access health informa tion online Indication:Nonsmoker Start:15-Sep-2018 Instruction Type:Patient Education How to access health informa tion online - Detail Indication:Nonsmoker Start:15-Sep-2018 Instruction Type:Patient Education Patient Instructions Indication:Nonsmoker Start:15-Sep-2018 Instruction Type:Provider Instructions for Treatment How to access health informa tion online Indication:Chills Start:12-Sep-2018 Instruction Type:Patient Education How to access health informa tion online - Detail Indication:Chills Start:12-Sep-2018 Instruction Type:Patient Education Patient Instructions Indication:Chills Start:12-Sep-2018 Instruction Type:Provider Instructions for Treatment How to access health informa tion online Indication:Nonsmoker Start:09-Jul-2018 Instruction Type:Patient Education How to access health informa tion online - Detail Indication:Nonsmoker Start:09-Jul-2018 Instruction Type:Patient Education Patient Instructions Indication:Nonsmoker Start:09-Jul-2018 Instruction Type:Provider Instructions for Treatment How to access health informa tion online Indication:Annual Medicare Physical (Renamed from Medicare annual wellness visit, subsequent) Start:21-Oct-2017 Instruction Type:Patient Education How to access health informa tion online - Detail Indication:Annual Medicare Physical (Renamed from Medicare annual wellness visit, subsequent) Start:21-Oct-2017 Instruction Type:Patient Education Patient Instructions Indication:Nonsmoker Start:21-Oct-2017 Instruction Type:Provider Instructions for Treatment How to access health informa tion online Indication:Conjunctivitis Start:18-Oct-2017 Instruction Type:Patient Education How to access health informa tion online - Detail Indication:Conjunctivitis Start:18-Oct-2017 Instruction Type:Patient Education Patient Instructions Indication:Conjunctivitis Start:18-Oct-2017 Instruction Type:Provider Instructions for Treatment How to access health informa tion online Indication:Hypertension, essential, benign Start:19-Aug-2017 Instruction Type:Patient Education How to access health informa tion online - Detail Indication:Hypertension, essential, benign Start:19-Aug-2017 Instruction Type:Patient Education Patient Instructions Indication:Hypertension, essential, benign Start:19-Aug-2017 Instruction Type:Provider Instructions for Treatment How to access health informa tion online Indication:Hypertension, essential, benign Start:12-Apr-2017 Instruction Type:Patient Education How to access health informa tion online - Detail Indication:Hypertension, essential, benign Start:12-Apr-2017 Instruction Type:Patient Education Patient Instructions Indication:Hypertension, essential, benign Start:12-Apr-2017 Instruction Type:Provider Instructions for Treatment Patient Instructions Indication:Hypertension, essential, benign Start:04-Jan-2017 Instruction Type:Provider Instructions for Treatment How to access health informa tion online Indication:Esophageal spasm Start:02-Oct-2016 Instruction Type:Patient Education How to access health informa tion online - Detail Indication:Esophageal spasm Start:02-Oct-2016 Instruction Type:Patient Education Patient Instructions Indication:Esophageal spasm Start:02-Oct-2016 Instruction Type:Provider Instructions for Treatment How to access health informa tion online Indication:Esophageal spasm Start:13-Feb-2016 Instruction Type:Patient Education How to access health informa tion online - Detail Indication:Esophageal spasm Start:13-Feb-2016 Instruction Type:Patient Education Patient Instructions Indication:Esophageal spasm Start:13-Feb-2016 Instruction Type:Provider Instructions for Treatment How to access health informa tion online Indication:Ear pain, right Start:31-Jan-2016 Instruction Type:Patient Education How to access health informa tion online - Detail Indication:Ear pain, right Start:31-Jan-2016 Instruction Type:Patient Education Patient Instructions Indication:Ear pain, right Start:31-Jan-2016 Instruction Type:Provider Instructions for Treatment How to access health informa tion online Indication:Dyspnea Start:13-Sep-2015 Instruction Type:Patient Education How to access health informa tion online - Detail Indication:Dyspnea Start:13-Sep-2015 Instruction Type:Patient Education Patient Instructions Indication:Dyspnea Start:13-Sep-2015 Instruction Type:Provider Instructions for Treatment How to access health informa tion online Indication:Osteoarthrosis, unspecified whether generalized or localized, other specified sites Start:14-Mar-2015 Instruction Type:Patient Education How to access health informa tion online - Detail Indication:Osteoarthrosis, unspecified whether generalized or localized, other specified sites Start:14-Mar-2015 Instruction Type:Patient Education Patient Instructions Indication:Osteoarthrosis, unspecified whether generalized or localized, other specified sites Start:14-Mar-2015 Instruction Type:Provider Instructions for Treatment How to access health informa tion online Indication:Hypertension, essential, benign Start:17-Jan-2015 Instruction Type:Patient Education How to access health informa tion online - Detail Indication:Hypertension, essential, benign Start:17-Jan-2015 Instruction Type:Patient Education Patient Instructions Indication:Hypertension, essential, benign Start:17-Jan-2015 Instruction Type:Provider Instructions for Treatment Patient Instructions Indication:Acute sinusitis, unspecified Start:20-May-2013 Instruction Type:Provider Instructions for Treatment Patient Instructions Indication:Hypertension, essential, benign Start:21-Apr-2013 Instruction Type:Provider Instructions for Treatment Patient Instructions Indication:Hypertension, essential, benign Start:23-Oct-2012 Instruction Type:Provider Instructions for Treatment Name Dates Details Patient Instructions Indication:Non-smoker Start:31-Aug-2020 Instruction Type:Provider Instructions for Treatment How to Access Health Informa tion Online using Patient Portal and [employer] Indication:Non-smoker Start:31-Aug-2020 Instruction Type:Patient Education How to access health informa tion online Indication:BMI 33.0-33.9,adult Start:06-Jun-2020 Instruction Type:Patient Education How to access health informa tion online - Detail Indication:BMI 33.0-33.9,adult Start:06-Jun-2020 Instruction Type:Patient Education Patient Instructions Indication:BMI 33.0-33.9,adult Start:06-Jun-2020 Instruction Type:Provider Instructions for Treatment How to access health informa tion online Indication:Non-smoker Start:16-Mar-2020 Instruction Type:Patient Education How to access health informa tion online - Detail Indication:Non-smoker Start:16-Mar-2020 Instruction Type:Patient Education Patient Instructions Indication:BMI 33.0-33.9,adult Start:16-Mar-2020 Instruction Type:Provider Instructions for Treatment How to access health informa tion online Indication:Non-smoker Start:14-Sep-2019 Instruction Type:Patient Education How to access health informa tion online - Detail Indication:Non-smoker Start:14-Sep-2019 Instruction Type:Patient Education Patient Instructions Indication:Non-smoker Start:14-Sep-2019 Instruction Type:Provider Instructions for Treatment How to access health informa tion online - Detail Indication:Non-smoker Start:18-Aug-2019 Instruction Type:Patient Education How to access health informa tion online Indication:Non-smoker Start:18-Aug-2019 Instruction Type:Patient Education Patient Instructions Indication:Non-smoker Start:18-Aug-2019 Instruction Type:Provider Instructions for Treatment How to access health informa tion online Indication:Non-smoker Start:08-Jun-2019 Instruction Type:Patient Education How to access health informa tion online - Detail Indication:Non-smoker Start:08-Jun-2019 Instruction Type:Patient Education Patient Instructions Indication:Non-smoker Start:08-Jun-2019 Instruction Type:Provider Instructions for Treatment How to access health informa tion online Indication:Nonsmoker Start:15-Sep-2018 Instruction Type:Patient Education How to access health informa tion online - Detail Indication:Nonsmoker Start:15-Sep-2018 Instruction Type:Patient Education Patient Instructions Indication:Nonsmoker Start:15-Sep-2018 Instruction Type:Provider Instructions for Treatment How to access health informa tion online Indication:Chills Start:12-Sep-2018 Instruction Type:Patient Education How to access health informa tion online - Detail Indication:Chills Start:12-Sep-2018 Instruction Type:Patient Education Patient Instructions Indication:Chills Start:12-Sep-2018 Instruction Type:Provider Instructions for Treatment How to access health informa tion online Indication:Nonsmoker Start:09-Jul-2018 Instruction Type:Patient Education How to access health informa tion online - Detail Indication:Nonsmoker Start:09-Jul-2018 Instruction Type:Patient Education Patient Instructions Indication:Nonsmoker Start:09-Jul-2018 Instruction Type:Provider Instructions for Treatment How to access health informa tion online Indication:Annual Medicare Physical (Renamed from Medicare annual wellness visit, subsequent) Start:21-Oct-2017 Instruction Type:Patient Education How to access health informa tion online - Detail Indication:Annual Medicare Physical (Renamed from Medicare annual wellness visit, subsequent) Start:21-Oct-2017 Instruction Type:Patient Education Patient Instructions Indication:Nonsmoker Start:21-Oct-2017 Instruction Type:Provider Instructions for Treatment How to access health informa tion online Indication:Conjunctivitis Start:18-Oct-2017 Instruction Type:Patient Education How to access health informa tion online - Detail Indication:Conjunctivitis Start:18-Oct-2017 Instruction Type:Patient Education Patient Instructions Indication:Conjunctivitis Start:18-Oct-2017 Instruction Type:Provider Instructions for Treatment How to access health informa tion online Indication:Hypertension, essential, benign Start:19-Aug-2017 Instruction Type:Patient Education How to access health informa tion online - Detail Indication:Hypertension, essential, benign Start:19-Aug-2017 Instruction Type:Patient Education Patient Instructions Indication:Hypertension, essential, benign Start:19-Aug-2017 Instruction Type:Provider Instructions for Treatment How to access health informa tion online Indication:Hypertension, essential, benign Start:12-Apr-2017 Instruction Type:Patient Education How to access health informa tion online - Detail Indication:Hypertension, essential, benign Start:12-Apr-2017 Instruction Type:Patient Education Patient Instructions Indication:Hypertension, essential, benign Start:12-Apr-2017 Instruction Type:Provider Instructions for Treatment Patient Instructions Indication:Hypertension, essential, benign Start:04-Jan-2017 Instruction Type:Provider Instructions for Treatment How to access health informa tion online Indication:Esophageal spasm Start:02-Oct-2016 Instruction Type:Patient Education How to access health informa tion online - Detail Indication:Esophageal spasm Start:02-Oct-2016 Instruction Type:Patient Education Patient Instructions Indication:Esophageal spasm Start:02-Oct-2016 Instruction Type:Provider Instructions for Treatment How to access health informa tion online Indication:Esophageal spasm Start:13-Feb-2016 Instruction Type:Patient Education How to access health informa tion online - Detail Indication:Esophageal spasm Start:13-Feb-2016 Instruction Type:Patient Education Patient Instructions Indication:Esophageal spasm Start:13-Feb-2016 Instruction Type:Provider Instructions for Treatment How to access health informa tion online Indication:Ear pain, right Start:31-Jan-2016 Instruction Type:Patient Education How to access health informa tion online - Detail Indication:Ear pain, right Start:31-Jan-2016 Instruction Type:Patient Education Patient Instructions Indication:Ear pain, right Start:31-Jan-2016 Instruction Type:Provider Instructions for Treatment How to access health informa tion online Indication:Dyspnea Start:13-Sep-2015 Instruction Type:Patient Education How to access health informa tion online - Detail Indication:Dyspnea Start:13-Sep-2015 Instruction Type:Patient Education Patient Instructions Indication:Dyspnea Start:13-Sep-2015 Instruction Type:Provider Instructions for Treatment How to access health informa tion online Indication:Osteoarthrosis, unspecified whether generalized or localized, other specified sites Start:14-Mar-2015 Instruction Type:Patient Education How to access health informa tion online - Detail Indication:Osteoarthrosis, unspecified whether generalized or localized, other specified sites Start:14-Mar-2015 Instruction Type:Patient Education Patient Instructions Indication:Osteoarthrosis, unspecified whether generalized or localized, other specified sites Start:14-Mar-2015 Instruction Type:Provider Instructions for Treatment How to access health informa tion online Indication:Hypertension, essential, benign Start:17-Jan-2015 Instruction Type:Patient Education How to access health informa tion online - Detail Indication:Hypertension, essential, benign Start:17-Jan-2015 Instruction Type:Patient Education Patient Instructions Indication:Hypertension, essential, benign Start:17-Jan-2015 Instruction Type:Provider Instructions for Treatment Patient Instructions Indication:Acute sinusitis, unspecified Start:20-May-2013 Instruction Type:Provider Instructions for Treatment Patient Instructions Indication:Hypertension, essential, benign Start:21-Apr-2013 Instruction Type:Provider Instructions for Treatment Patient Instructions Indication:Hypertension, essential, benign Start:23-Oct-2012 Instruction Type:Provider Instructions for Treatment Name Dates Details Chills : How to access healt h information online Indication:Chills Chills : How to access healt h information online - Detail Indication:Chills Chills : Patient Instruction s Indication:Chills Nonsmoker : How to access he alth information online Indication:Nonsmoker Nonsmoker : How to access he alth information online - Detail Indication:Nonsmoker Nonsmoker : Patient Instruct ions Indication:Nonsmoker Annual Medicare Physical (Re named from Medicare annual wellness visit, subsequent) : How to access health information online Indication:Annual Medicare Physical (Renamed from Medicare annual wellness visit, subsequent) Annual Medicare Physical (Re named from Medicare annual wellness visit, subsequent) : How to access health information online - Detail Indication:Annual Medicare Physical (Renamed from Medicare annual wellness visit, subsequent) Conjunctivitis : How to acce ss health information online Indication:Conjunctivitis Conjunctivitis : How to acce ss health information online - Detail Indication:Conjunctivitis Conjunctivitis : Patient Ins tructions Indication:Conjunctivitis Hypertension, essential, armen ign : How to access health information online Indication:Hypertension, essential, benign Hypertension, essential, armen ign : How to access health information online - Detail Indication:Hypertension, essential, benign Hypertension, essential, armen ign : Patient Instructions Indication:Hypertension, essential, benign Esophageal spasm : How to ac cess health information online Indication:Esophageal spasm Esophageal spasm : How to ac cess health information online - Detail Indication:Esophageal spasm Esophageal spasm : Patient I nstructions Indication:Esophageal spasm Ear pain, right : How to acc ess health information online Indication:Ear pain, right Ear pain, right : How to acc ess health information online - Detail Indication:Ear pain, right Ear pain, right : Patient In structions Indication:Ear pain, right Dyspnea : How to access heal th information online Indication:Dyspnea Dyspnea : How to access heal th information online - Detail Indication:Dyspnea Dyspnea : Patient Instructio ns Indication:Dyspnea Osteoarthrosis, unspecified whether generalized or localized, other specified sites : How to access health information online Indication:Osteoarthrosis, unspecified whether generalized or localized, other specified sites Osteoarthrosis, unspecified whether generalized or localized, other specified sites : How to access health information online - Detail Indication:Osteoarthrosis, unspecified whether generalized or localized, other specified sites Osteoarthrosis, unspecified whether generalized or localized, other specified sites : Patient Instructions Indication:Osteoarthrosis, unspecified whether generalized or localized, other specified sites Acute sinusitis, unspecified : Patient Instructions Indication:Acute sinusitis, unspecified Summary Purpose Advance Directives No Advanced Directives Records Found Name Dates Details Immunization Registry [place] - Effective on 09/27/2020. Expiration date unspecified Effective:27-Sep-2020 Name Dates Details Immunization Registry [place] - Effective on 09/27/2020. Expiration date unspecified Effective:27-Sep-2020 Name Dates Details Immunization Registry [place] - Effective on 09/27/2020. Expiration date unspecified Effective:27-Sep-2020 Name Dates Details Immunization Registry [place] - Effective on 09/27/2020. Expiration date unspecified Effective:27-Sep-2020 Name Dates Details Immunization Registry [place] - Effective on 09/27/2020. Expiration date unspecified Effective:27-Sep-2020 Name Dates Details Immunization Registry [place] - Effective on 09/27/2020. Expiration date unspecified Effective:27-Sep-2020 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 and Reason for Visit 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 3 M FU Reason for Visit Vertigo Chronic back pain Essential hypertension GERD (gastroesophageal reflux disease) 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 4 M FU SCREENING Reason for Visit Allergy-induced asth ma Essential hypertension GERD (gastroesophageal reflux disease) Vertigo 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 SCREENING acute-sore lft arm/low range of motion XRAY 5 m fu Reason for Visit Rotator cuff impinge ment syndrome of left shoulder Rotator cuff impingement syndrome of left shoulder Allergy-induced asthma Essential hypertension GERD (gastroesophageal reflux disease) 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 Admit Date 3 M FU September 16, 2024 1:24 pm PAIN IN UPPER RIB CAGE November 27, 2024 1: 55pm Reason for Visit Admit Date Essential hypertension September 16, 2024 1 :24pm GERD (gastroesophageal reflux disease) M 2024 1:24pm Helicobacter pylori gastritis September 16, 2024 1:24pm Osteoarthritis September 16, 2024 1:24 pm Atypical chest pain November 27, 2024 1:55p m Essential hypertension November 27, 2024 1: 55pm GERD (gastroesophageal reflux disease) M ay 2024 1:55pm Helicobacter pylori gastritis November 27, 2024 1:55pm 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 Admit Date 3 M FU September 16, 2024 1:24 pm PAIN IN UPPER RIB CAGE November 27, 2024 1: 55pm LABS December 18, 2024 8:10a m Additional Source Comments INFORMATION SOURCE (unrecogn ized section and content) DATE CREATED AUTHOR 09/16/2018 [facility] DATE CREATED AUTHOR AUTHOR'S ORGANIZ ATION 01/15/2024 [facility] [place] DATE CREATED AUTHOR AUTHOR'S ORGANIZ ATION 06/11/2024 [facility] DATE CREATED AUTHOR AUTHOR'S ORGANIZ ATION 12/22/2024 [facility] Care Teams (unrecognized sec tion and content) Team Status: Active Member Role Status Dates Mihaela Hui 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 Bronson Bynum MD Primary Care Provider Active Team Status: Inactive Member Role Status Dates Dr. Bronson Bynum MD Primary Care Elizabeth conrad, Attending Provider, Referring Provider Active Team Status: Inactive Member Role Status Dates Dr. Bronson Bynum MD Primary Care Provider, Refer ring Provider Active Iain CARRERO, PA Attending Provider Active Team Status: Inactive Member Role Status Dates Dr. Bronson Bynum MD Primary Care Provider Active Dr. Michael Tamayo MD Attending Provider Active Team Status: Inactive Member Role Status Dates Dr. Bronson Bynum MD Primary Care Provider Active Start: September 16, 2024 End: September 16, 2024 Dr. Bronson Bynum MD Attending Provider Active Start: September 16, 2024 End: September 16, 2024 Dr. Bronson Bynum MD Referring Provider Active Start: September 16, 2024 End: September 16, 2024 Team Status: Inactive Member Role Status Dates Dr. Bronson Bynum MD Primary Care Provider Active Start: November 27, 2024 End: November 27, 2024 Dr. Bronson Bynum MD Attending Provider Active Start: November 27, 2024 End: November 27, 2024 Dr. Bronson Bynum MD Referring Provider Active Start: November 27, 2024 End: November 27, 2024 Team Status: Active Member Role Status Dates Dr. Bronson Bynum MD Primary Care Provider Active Start: November 27, 2024 Dr. Bronson Bynum MD Attending Provider Active Start: November 27, 2024 Dr. Bronson Bynum MD Referring Provider Active Start: November 27, 2024 Team Status: Active Member Role Status Dates Dr. Bronson Bynum MD Primary Care Provider Active Start: November 30, 2024 Dr. Bronson Bynum MD Attending Provider Active Start: November 30, 2024 Dr. Bronson Bynum MD Referring Provider Active Start: November 30, 2024 Team Status: Inactive Member Role Status Dates Dr. Bronson Bynum MD Primary Care Provider Active Start: November 30, 2024 End: November 30, 2024 Dr. Bronson Bynum MD Attending Provider Active Start: November 30, 2024 End: November 30, 2024 Dr. Bronson Bynum MD Referring Provider Active Start: November 30, 2024 End: November 30, 2024 Team Status: Active Member Role Status Dates Dr. Bronson Bynum MD Primary Care Provider Active Team Status: Inactive Member Role Status Dates Dr. Bronson Bynum MD Primary Care Provider Active Start: December 18, 2024 End: December 18, 2024 Dr. Tyler Johnson MD Attending Provider Active Start: December 18, 2024 End: December 18, 2024 Dr. Tyler Johnson MD Referring Provider Active Start: December 18, 2024 End: December 18, 2024 Goals (unrecognized section and content) Goals may be documented in a n alternate sectionGoals may be documented in an alternate sectionGoals may be documented in an alternate section No data available for this section No data available for this section No data available for this section No data available for this sectionGoals may be documented in an alternate sectionGoals may be documented in an alternate sectionGoals may be documented in an alternate sectionGoals may be documented in an alternate section FOR RECORDS PERTAINING TO PATIENTS WHO ARE OR HAVE BEEN ENROLLED IN A CHEMICAL DEPENDENCY/SUBSTANCEABUSE PROGRAM, SOME INFORMATION MAY BE OMITTED. This clinical summary was aggregated from multiple sources. Caution should be exercised in using it in the provision of clinical care. This summary normalizes information from multiple sources, and as a consequence, information in this document may materially change the coding, format and clinical context of patient data. In addition, data may be omitted in some cases. CLINICAL DECISIONS SHOULD BE BASED ON THE PRIMARY CLINICAL RECORDS. [facility] [employer] provides no warranty or guarantee of the accuracy or completeness of information in this document.
--- NOTE | 2025-01-08 13:16 | STRESSREP ---
Stress Test Report Date: 01/08/2025 Procedure: Exercise tolerance test/imaging study Indications: Chest pain Consent: Per the patient Procedure: The patient exercised on a Jameson protocol for 5 minutes and 7 seconds achieving a peak heart rate of 134 bpm (95% predicted maximal heart rate) with a peak blood pressure 174/84 mmHg and a peak MET capacity of 7.0 METs. The baseline ECG demonstrated sinus rhythm. The peak exercise ECG did not show any ischemic changes. Rare PVC noted. The functional capacity was considered average for age. There was no complaint of chest discomfort during exercise or recovery. The examination was discontinued secondary to target heart rate being achieved. The patient was injected with 11.7 mCi of technetium 99m Cardiolite and subsequently rest SPECT Cardiolite nuclear imaging was obtained in the horizontal long, vertical long, and short axis views. Post-exercise, the patient was injected with 34.2 mCi of technetium 99m Cardiolite and subsequently stress SPECT Cardiolite nuclear imaging was obtained in the horizontal long, vertical long, and short axis views. A gated Cardiolite study at peak stress was obtained. Rest and stress SPECT Cardiolite nuclear imaging status post realignment, normalization, and attenuation correction, demonstrates the appearance of relative uniform tracer uptake and myocardial perfusion appearing within normal limits. There is end systolic thickening and brightening. The gated Cardiolite study demonstrates myocardial thickening and inward wall motion. The reported LVEF is 73%. Impression: 1. Technically adequate (percent predicted maximal heart rate greater than 85%) exercise tolerance test 2. Peak exercise ECG with no diagnostic ischemic changes. No angina reported 3. Rare PVC noted 4. Rest and stress SPECT Cardiolite nuclear imaging demonstrate relative uniform tracer uptake and myocardial perfusion appearing within normal limits. 5. The gated Cardiolite study reports an LVEF of 73%. This note was generated with [employer] software. It may contain incorrect words, spelling, and punctuation that were not noted in checking the note before signing.
== END | disposition home or self-care (01) ==
LOC: CVS 06:13
PROVIDERS: PCP Internal Medicine; Referring Provider Internal Medicine; Visit Provider Internal Medicine
DX: R07.9 Chest pain, unspecified (principal); R94.31 Abnormal electrocardiogram [ECG] [EKG]
CPT/HCPCS: 78452; 93017; A9500; A4216

== ENCOUNTER → 2025-01-20 | Outpatient (CLI) | payer MEDICARE, OTHER, SELFPAY ==
[2025-01-20 17:25] LABS: Anion Gap 11 (5-15); BUN 22 mg/dL (4-19); BUN/Creat Ratio 20.6 RATIO (10-20); Calcium,Total 9.4 mg/dL (7.6-11.0); Carbon Dioxide 26.2 mmol/L (21.0-32.0); Chloride 102 mmol/L (98-108); Glucose 81 mg/dL (70-99); Potassium 4.2 mmol/L (3.3-5.1)
== END | disposition home or self-care (01) ==
LOC: BIMLAB 14:49
PROVIDERS: PCP Internal Medicine; Referring Provider Internal Medicine; Visit Provider Internal Medicine
DX: I10 Essential (primary) hypertension (principal)
CPT/HCPCS: 36415; 80048

== ENCOUNTER → 2025-02-03 | Outpatient (CLI) | payer MEDICARE, OTHER, SELFPAY ==
[2025-02-04 11:08] LABS: H. PYLORI STOOL AG Positive (Negative)
== END | disposition home or self-care (01) ==
LOC: LABSPEC 08:15
PROVIDERS: PCP Internal Medicine
DX: K21.9 Gastro-esophageal reflux disease without esophagitis (principal); R10.13 Epigastric pain; K29.70 Gastritis, unspecified, without bleeding; B96.81 Helicobacter pylori [H. pylori] as the cause of diseases classified elsewhere
CPT/HCPCS: 87338

== ENCOUNTER → 2025-04-14 | Outpatient (CLI) | payer MEDICARE, OTHER, SELFPAY ==
[2025-04-15 15:08] LABS: H. PYLORI STOOL AG Negative (Negative)
== END | disposition home or self-care (01) ==
LOC: LABSPEC 11:11
PROVIDERS: PCP Internal Medicine; Referring Provider Nurse Practitioner Acute Care; Visit Provider Nurse Practitioner Acute Care
DX: K29.70 Gastritis, unspecified, without bleeding (principal); B96.81 Helicobacter pylori [H. pylori] as the cause of diseases classified elsewhere
CPT/HCPCS: 36415; 87338

== ENCOUNTER → 2025-06-11 | Outpatient (CLI) | payer MEDICARE, OTHER, SELFPAY ==
--- OUTSIDE RECORDS SUMMARY | 2025-06-11 12:42 | XMS RPT_ITS | CCD ---
Author Organization [facility] Care Team Providers Care News Broadcaster Name Role Phone Mihaela Hui Unavailable Alverto Mckeon Unavailable Tyler Johnson Unavailable Vito Chisholm Unavailable [facility], Magi Lopez Unavailable Emanuel Ruffin Unavailable Dex Alegre Unavailable Gloria Payan Unavailable Katalina Thomas Unavailable Unavailable Slarb, Rupa Unavailable Unavailable Unavailable Unavailable Mihaela Hui Unavailable Alverto Mckeon Unavailable Tyler Johnson Unavailable Vito Chisholm Unavailable [facility], Magi Lopez Unavailable Emanuel Ruffin Unavailable Dex Alegre Unavailable Schuyler Gloria Unavailable William Robertson Unavailable Unavailable Slarb, Rupa Unavailable Unavailable Unavailable Unavailable Katalina Thomas Unavailable Unavailable Mihaela Hui Attending Unavailable Mihaela Hui Referring Unavailable Mihaela Hui Consulting Unavailable Melita Cisse Unavailable Unavailable William Robertson Unavailable Unavailable Tammy Toth Unavailable Unavailable Kenn Cain Unavailable William Lara Unavailable Unavailable Mihaela Hui CNP Unavailable Alverto Mckeon MD C Unavailable Dr. Tyler Johnson Unavailable Kenn Cain Unavailable Phan CASH, Vito [facility] MACEDO Unavailable Laly CASH, Emanuel Lindsay Unavailable Sis CASH, Dex Unavailable Gloria Payan Unavailable Navneet 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, Tammy Unavailable Unavailable Slarena 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, Rupa Unavailable Unavailable Marco 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, William Unavailable Unavailable Katalina Thomas Unavailable Unavailable Unavailable Unavailable Fast DO, Ryann A Unavailable Ciesa, Mihaela Unavailable Gravius DIAMOND DIE DRILLER, Roxane Unavailable Unavailable Nuha DO, Tabatha Unavailable Fast DO, Ryann A Unavailable Ciesa, Mihaela Unavailable Brenton SENIOR HEALTH EDUCATOR, Rica Unavailable Brenton SENIOR HEALTH EDUCATOR, Rica Unavailable Ant, Kenn Unavailable Nuha DO, [...] 0) Dr. Bronson Bynum Referring Provider [phone] Esteban CARRERO, MAGAN Timmons Attending Provider [phone] Dr. Michael Tamayo Attending Provider [phone] Dr. Bronson Bynum Attending Provider [phone] CIESA WARD SERVICE SUPERVISOR, [facility] Primary Care Physician Todd PT, Sari Unavailable Carey BELLA MD, DR GUERRERO Attending Unavailabl e KORINA WARD SERVICE SUPERVISOR, [facility] Primary Care Unavailable FLETCHER CASH, BRONSON Huizar Attending Unavailab le KORINA WARD SERVICE SUPERVISOR, [facility] Primary Care Unavailable CIESA WARD SERVICE SUPERVISOR, [facility] Primary Care Unavailable ELIZABETH CASH, DR YING Attending Unavailbob BYNUM MD, BRONSON Huizar Primary Care Physician [phone] FLETCHER CASH, BRONSON Huizar Primary Care Unavailab TYLER Shabazz Attending Unavailable FLETCHER CASH, BRONSON Huizar Primary Care Unavailab Jg CASH, PAT Attending Carey Bynum MD, Dr. Gramajo Primary Care Provider Fletcher CASH, Dr. Gramajo Attending Provider [phone] Fletcher CASH, Dr. Gramajo Referring Provider [phone] Dr. Tyler Johnson MD Attending Provider Dr. Tyler Johnson MD Referring Provider Fletcher CASH, Dr. Gramajo Other Provider [phone] Dr. Francesco Falk MD Attending Provider Dr. Bronson Bynum MD Primary Care Provider Dr. Bronson Bynum MD Attending Provider [phone] Dr. Bronson Bynum MD Referring Provider [phone] Jason HAIR SALON MANAGER-C, Adriana Attending Provider [phone] Jason HAIR SALON MANAGER-C, Adriana Referring Provider [phone] Fletcher CASH, Dr. Gramajo Primary Care Provider Fletcher CASH, Dr. Gramajo Attending Provider [phone] Dr. Bronson Bynum MD Referring Provider [phone] Loki SUHCLilian Attending Provider Francesco Falk Attending Unavailable Oleghe, Efewongbe Primary Care Unavailable Oleghe, Efewongbe Referring Unavailable Oleghe, Efewongbe Consulting Unavailable Oleghe, Efewongbe Primary Care Unavailable Oleghe, Efewongbe Referring Unavailable Oleghe, Efewongbe Attending Unavailable Oleghe, Efewongbe Primary Care Unavailable Oleghe, Efewongbe Referring Unavailable Oleghe, Efewongbe Attending Unavailable Lilian Manjarrez Referring Unavailable Lilian Manjarrez Attending Unavailable Oleghe, Efewongbe Primary Care Unavailable [...] Attending Unavailable Oleghe, Efewongbe Primary Care Unavailable Jabour Vincent Referring Unavailable JaTyler sidhu Attending Unavailable Oleghe, Efewongbe Referring Unavailable Oleghe, [...] Referring Unavailable Oleghe, Efewongbe Primary Care Unavailable Adriana Gomez Referring Unavailable Adriana Gomez Attending Unavailable Oleghe, Efewongbe Primary Care Unavailable Oleghe, Efewongbe Referring Unavailable Adriana Gomez Attending Unavailable Lilian Manjarrez Attending Unavailable Oleghe, Efewongbe Primary Care Unavailable Oleghe, Efewongbe Referring Unavailable Oleghe, Efewongbe Attending Unavailable Oleghe, Efewongbe Referring Unavailable Oleghe, Efewongbe Primary Care Unavailable Allergies Allergy Classification Reported Allergen(s) Allergy Type Date of Onset Reaction(s) Facility (20 sources) Dust; Translations: [Dust] allergy to substance Sneezing, Rhinitis [facility] Work Phone: (20 sources) Tree; Translations: [Trees] allergy to substance Sneezing, Rhinitis [facility] Work Phone: (13 sources) Seasonal Allergies: Uncoded; Translations: [Seasonal Allergies: Uncoded] Allergy to substance 3 nasal drainage [facility] NEGATED: Highlighted row has been ruled out! [...] Internal Medicine; [facility] Work Phone: Medications Current Medications Medication Drug Class(es) Dates Sig (Normalized) Sig (Original) [id number] 200 actuat albuterol 0.09 mg/actuat metered dose [...] Quantity: 1 {Inhalation} Refills: 0 Ordered: 14-Sep-2019 Mihaela Hui CNP, CNP, Mary E Start : 14-Sep-2019 Active Start: 06-29-2018 End: 02-04-2019 Albuterol Sulfate 90 mcg/act uation HFA aerosol inhaler Discontinued 2 NMA INHALATION EVERY 6 HOURS as needed for shortness of breath 6.7 0 June 29, 2018 1:00am February 04, 2019 [...] inhalation aerosol (4 sources) Start: 04-22-2023 Albuterol (Eqv -ProAir HFA) 90 mcg/inh inhalation aerosol Dose = 2 puff(s), 0 Refill(s) Start Date: 04/22/23 Status: Ordered [id number]-[id number] moterol (13 sources) Corticosteroid, beta2-Adrenergic Agonist Start: 04-11-2022 Budesonide-Glycopyr- For moterol (Breztri Aerosphere) 160-9-4.8 mcg/actuation HFA aerosol inhaler [...] (Zyrtec) 10 mg ca psule Discontinued PO 0 June 29, 2018 1:00am August 05, 2018 11:31am Start: 10-18-2017 Start: 10-14-2012 End: 01-31-2016 montelukast 5 mg chewable tablet (20 sources) Leukotriene Receptor Antagonist Start: 04-22-2023 Singulair qDay, 0 Refill(s) Start Date: 04/22/23 Status: Ordered Start: 04-24-2021 Start: 09-14-2019 take 1 tablet by roxie th once daily Singulair 10 MG Oral Tablet 1 Tablet qd for 0 days Quantity: 90 {Tablet} Refills: 3 Ordered: 14-Sep-2019 Mihaela Hui CNP, CNP, Mary E Start : 14-Sep-2019 Active Start: 06-29-2018 End: 01-20-2025 take 2 tablets by mouth once daily as needed Montelukast (Singulair) 5 mg tablet,chewable Active 10 mg PO DAILY as needed January 20, 2025 2:04pm Start: 08-21-2016 take 1 tablet by roxie th once daily as needed Singulair 10 MG Oral Tablet 1 Tablet qd prn for 0 days Quantity: 30 {Tablet} Refills: 0 Ordered: 21-Aug-2016 Mihaela Hui CNP, CNP, Mary E Start : 21-Aug-2016 Active Multivitamin preparation (3 sources) Start: 04-11-2022 take 1 tablet by mouth once daily Multivitamin Active 1 TABLET PO DAILY April 10, 2022 11:00pm Start: 04-11-2022 take 1 tablet by roxie th once daily Multivitamin Active 1 TABLET PO DAILY April 11, 2022 12:00am omeprazole 40 mg delayed release oral capsule (20 sources) Proton Pump Inhibitor Start: 04-14-2024 End: 03-29-2025 take 1 capsule by mouth once daily Omeprazole 40 mg capsule,delayed release(DR/EC) Active 40 mg PO daily 90 2 March 29, 2025 3:39pm On Hold: HOLD for 2 weeks pending H. pylori stool testing Start: 04-14-2024 End: 04-14-2024 take 1 capsule by mouth once daily Omeprazole 20 mg capsule,delayed release(DR/EC) Discontinued 20 mg PO daily April 14, 2024 12:00am April 14, 2024 1:30pm Start: 02-11-2016 End: 08-27-2022 take 1 capsule by mouth once daily Omeprazole 40 mg capsule,delayed release(DR/EC) Discontinued 40 mg PO DAILY August 05, 2018 1:00am August 27, 2022 2:23pm Start: 03-14-2015 End: 03-14-2015 prevagen (13 sources) Start: 04-11-2022 prevagen Activ e PO April 10, 2022 11:00pm Start: 04-11-2022 prevagen Activ e PO April 11, 2022 12:00am Completed/Discontinued Medications Medication Drug Class(es) Dates Sig (Normalized) Sig (Original) acetaminophen 500 mg oral tablet (20 sources) Start: 01-04-2017 Start: 01-04-2017 take 2 tablets by mo ut once daily as needed Extra Strength Pain Relief 500 MG Oral Tablet 2 (two) Tablet Tablet daily as needed for 0 days Quantity: 30 {Tablet} Refills: 0 Ordered: 12-Apr-2017 Rupa Boudreaux LPN Start : 04-Jan-2017 Active Comments: Medication taken as needed. Start: 09-13-2015 End: 09-13-2015 Comment on above: Medication taken as needed. not help amoxicillin 500 mg oral tablet (2 sources) Penicillin-class Antibacterial Start: 02-05-20 End: 02-19-20 take 2 tablets by mouth twice daily Amoxicillin 500 mg tablet Discontinued 1000 mg PO TWICE A DAY 56 14 0 February 04, 2025 12:00am February 17, 2025 12:00am February 18, 2025 12:08am h.pylori amoxicillin 875 mg / clavulanate 125 mg oral tablet (20 sources) Penicillin-class Antibacterial Start: 08-22-19 End: 09-06-19 Start: 03-01-2021 End: 03-11-2021 Start: 10-21-2017 End: 11-04-2017 Start: 10-21-2017 End: 11-04-2017 take 1 tablet by mouth twice daily Augmentin 875-125 MG Oral Tablet 1 Tablet bid for 14 days Quantity: 28 {Tablet} Refills: 0 Ordered: 21-Oct-2017 Mihaela Hui CNP, CNP, Mihaela Sarmiento Start : 21-Oct-2017 End : 04-Nov-2017 Inactive aspirin 81 mg delayed release oral tablet (20 sources) Platelet Aggregation Inhibitor, Nonsteroidal Anti-inflammatory Drug End: 08-21-2016 atorvastatin 40 mg oral tablet (10 sources) HMG-CoA Reductase Inhibitor Start: 01-13-2024 End: [...] mg tablet Discontinued 0 PO .COMPLEX 6 0 June 29, 2018 1:00am August 07, 2018 [...] Biotin (20 sources) biotin 5000 Acti ve bismuth subsalicylate 262 mg oral tablet (10 sources) Bismuth Start: 4 End: 5 take 1 tablet by mouth three times daily Bismuth Subsalicylate 262 mg tablet,chewable Discontinued 2 {tbl} PO THREE TIMES A DAY June 17, 2024 1:00am January 20, 2025 2:03pm 120 actuat budesonide 0.16 mg/actuat / formoterol fumarate 0.0045 mg/actuat metered dose inhaler (20 sources) Corticosteroid, beta2-Adrenergic Agonist Start: 2 End: 3 Start: 05-01-2012 End: 10-23-2012 Start: 05-01-2012 End: 10-23-2012 SYMBICORT, 160-4.5MCG/ACT (I nhalation Aerosol) 1 Aerosol bid for 0 days Quantity: 1 {Aerosol} Refills: 0 Ordered: 23-Oct-2012 Sussy CASH, Yue Collazo Start : 01-May-2012 End : 23-Oct-2012 Discontinued cephalexin 500 mg oral capsule (11 sources) Cephalosporin Antibacterial Start: 01-09-2024 End: 03-11-2024 [...] 08-31-2020 Start: 08-31-2020 take 1 capsule by mo uth once daily Vitamin D3 50 MCG (1999 UT) Oral Capsule 1 (one) Capsule daily for 0 days Quantity: 30 {Capsule} Refills: 0 Ordered: 31-Aug-2020 Mihaela Hui CNP, CNP, Mary E Start : 31-Aug-2020 Active Start: 08-05-2018 End: 01-13-2024 take 1 tablet by mouth once daily Cholecalciferol (Vitamin D3) 2,000 unit tablet Discontinued 2000 U PO DAILY August 05, 2018 1:00am January 13, 2024 9:23am clarithromycin 500 mg oral tablet (2 sources) Macrolide Antimicrobial Start: 02-04-2025 End: 02-18-2025 take 1 tablet by mouth twice daily Clarithromycin 500 mg tablet Discontinued 500 mg PO TWICE A DAY 28 14 0 February 04, 2025 12:00am February 17, 2025 12:00am February 18, 2025 12:08am H.pylori codeine phosphate 2 mg/ml / guaiFENesin 20 mg/ml oral solution (20 sources) Opioid Agonist Start: 03-11-2012 End: 10-14-2012 Start: 03-11-2012 End: 10-14-2012 CHERATUSSIN AC, 100-10MG/5ML (Oral Syrup) 1 Teaspoon(s) qhs prn for cough for 0 days Quantity: 6 {Ounce(s)} Refills: 0 Ordered: 14-Oct-2012 Start : 11-Mar-2012 End : 14-Oct-2012 Inactive cyclobenzaprine hydrochloride 10 mg oral tablet (10 sources) Muscle Relaxant Start: 11-27-2023 End: 01-13-2024 take 1 tablet by mouth at bedtime as needed for muscle spasms Cyclobenzaprine 10 mg tablet Discontinued 10 mg PO BEDTIME as needed for muscle spasm 30 November 27, 2023 12:00am January 13, 2024 [...] End: 08-21-2016 famotidine 20 mg oral tablet (12 sources) Histamine-2 Receptor Antagonist Start: 03-29-2024 End: [...] 25 mg tablet Discontinued 0 .ROUTE .COMPLEX 90 July 07, 2024 12:16pm December 02, 2024 10:30am TAKE 1 TABLET BY MOUTH EVERY DAY Start: 02-11-2016 End: 05-04-2022 take 1 tablet by mouth once daily Hydrochlorothiazide 12.5 mg tablet Discontinued 12.5 mg PO DAILY February 04, 2019 1:33pm May 04, 2022 5:17pm Comment on above: Medication taken as needed. lansoprazole 30 mg delayed release oral capsule (20 sources) Proton Pump Inhibitor Start: 02-15-20 End: 02-24-20 meclizine hydrochloride 25 mg oral tablet (20 sources) Antiemetic Start: 05-24-20 End: 01-21-20 25 take 1 tablet by mouth twice daily as needed Meclizine 25 mg tablet Discontinued 25 mg PO TWICE A DAY as needed for vertigo 120 December 03, 2022 5:09pm January 20, 2025 2:04pm meloxicam 15 mg oral tablet (20 sources) Nonsteroidal Anti-inflammatory Drug Start: 08-07-19 End: 09-17-19 25 take 1 tablet by mouth once daily as needed for pain Meloxicam 15 mg tablet Discontinued 0 .ROUTE .COMPLEX 30 March 06, 2024 5:01pm September 16, 2024 [...] as needed. metroNIDAZOLE 250 mg oral tablet (10 sources) Nitroimidazole Antimicrobial Start: 06-17-20 End: 09-17-19 25 take 1 tablet by [...] 15-Jan-2012 End : 23-Oct-2012 Inactive Multivitamin tablet (10 sources) Start: 04-11-2022 End: 09-16-2024 Multivitamin tablet Discontinued 1 {tbl} PO DAILY April 11, 2022 12:00am September 16, 2024 2:32pm nitrofurantoin, macrocrystals 25 mg / nitrofurantoin, monohydrate 75 mg oral capsule (20 sources) Nitrofuran Antibacterial Start: 09-12-2018 End: 09-19-2018 olopatadine 1 mg/ml ophthalmic solution (20 sources) Histamine-1 Receptor Inhibitor Start: 11-18-2012 End: 02-23-2015 Comment on above: called to [facility] thurman 11-18-12 shamika ondansetron 4 mg disintegrating oral tablet (10 sources) Serotonin-3 Receptor Antagonist Start: 06-17-2024 End: 01-20-2025 take 1 tablet by mouth every eight hours as needed for nausea and vomiting Ondansetron 4 mg tablet,disintegra ting Discontinued 4 mg PO Q8H as needed for nausea and vomiting 60 0 June 17, 2024 1:00am January 20, 2025 2:05pm pantoprazole 40 mg delayed release oral tablet (13 sources) Proton Pump Inhibitor Start: 08-27-2022 End: 08-14-2023 Pantoprazole (Protonix) 40 mg tablet,delayed release (DR/EC) Discontinued 40 mg PO DAILY 120 August 27, 2022 1:00am August 14, 2023 2:01pm Take BID for 3 weeks then take daily polymyxin b [id number] unt/ml / trimethoprim 1 mg/ml ophthalmic solution [...] Discontinued 20 mg PO TWICE A DAY 10 November 15, 2023 12:00am November 27, 2023 1:59pm Start: 06-08-2019 End: 08-18-2019 Start: 06-06-2019 End: 04-11-2022 Prednisone 10 mg tablets,dos e pack Discontinued 0 PO per package directions 21 June 06, 2019 1:00am April 11, 2022 [...] 56 {Tablet} Refills: 0 Ordered: 04-Jan-2017 Mihaela Hiu CNP, CNP, Mary E Start : 04-Jan-2017 End : 18-Jan-2017 Inactive triamcinolone acetonide 0.05 5 mg/actuat metered dose nasal spray (20 sources) Corticosteroid Start: 10-18-2017 End: 07-09-2018 Start: 10-18-2017 End: 07-09-2018 Nasacort Allergy 24HR Childr en 55 MCG/ACT Nasal Aerosol 1 (one) [place] as needed for 0 days Quantity: 1 {[place]} Refills: 0 Ordered: 09-Jul-2018 Katalina Thomas Start [...] Comment on above: Medication taken as needed. Vonoprazan 20 mg tablet (2 sources) Start: End: take 1 tablet by mouth twice daily Vonoprazan 20 mg tablet Discontinued 20 mg PO TWICE A DAY 14 February 04, 2025 12:00am February 17, 2025 12:00am February 18, 2025 12:08am Start: 02-04-2025 take 1 tablet by roxie th twice daily Vonoprazan 20 mg tablet Active 20 mg PO TWICE A DAY 14 February 04, 2025 12:00am February 17, 2025 12:00am (16 sources) Problems Active Problems Problem Classification Problem Date Documented Da te Episodic/Chronic Allergic reactions (20 sources) Allergic disposition; Translations: [Allergy] 07-09-2018 Episodic Comment on above: sees Cheko for [facility] allergy shots Anxiety disorders (20 sources) Anxiety; [...] Episodic Conditions associated with dizziness or vertigo (15 sources) Vertigo; Translations: [Dizziness and giddiness] 05-24-2022 [...] decrease coffee, had stress test and echo 15 normalwill monitor if worse would need scope BMX some relief? if gastric erosion from chronic nsaids for joint pain try sucralfate, using omeprazolestress test 2014 normal Esophageal disorders (14 sources) Esophageal dysmotility; Translations: [Esophageal spasm] 07-09-2018 Episodic Comment on above: on omeprazole, stop mobic and decrease coffee, had stress test and echo 15 normalwill monitor if worse would need scope [...] Translations: [Fever] 11-08-2021 Episodic Gastritis and duodenitis (20 sources) Helicobacter pylori-associated gastritis; Translations: [Gastritis, unspecified, without bleeding] Onset: 5 09-16-2024 Episodic Genitourinary symptoms and ill-defined conditions (20 sources) Blood in urine; Translations: [Hematuria, unspecified] Resolved: 6 09-13-2015 Episodic Comment on above: -41 urolo gy workup repeat nex ov December Headache; including migraine (20 sources) Ophthalmic migraine; [...] above: symptoms last week, tested positive improving Mood disorders (20 sources) Depression; Translations: [Depressive disorder] 07-09-2018 Chronic Comment on above: dealing wtih her hus band issues with spinal cord injury. getting better. stable mood does cry at times.younger. last few years ago when working. retired off med right now doing well. Nutritional deficiencies (20 sources) Vitamin D deficiency; [...] Dr Martinez, severe osteoarthritis hands Other aftercare (10 sources) Post-discharge follow-up; Translations: [Encounter for follow-up examination after completed treatment for conditions other than malignant neoplasm] 04-14-2024 Episodic Other bone disease and musculoskeletal deformities (20 sources) Osteopenia; Translations: [Osteopenia] 07-09-2018 Episodic Comment on above: on Vit D, ok to take 500mg Ricco daily and exercise Other circulatory disease (20 sources) Orthostatic hypotension; Translations: [Orthostatic hypotension] 09-12-2018 Episodic Other connective tissue disease (11 sources) Rotator cuff impingement syndrome; Translations: [Impingement syndrome of left shoulder] 08-14-2023 Episodic Other connective tissue disease (2 sources) Impingement syndrome of left shoulder; Translations: [Disorders of bursae and tendons in shoulder region, unspecified] 08-14-2023 Episodic Other connective tissue disease (1 source) Impingement syndrome of left shoulder region; Translations: [Impingement syndrome of left shoulder] Episodic Other connective tissue disease (10 sources) Pain in buttock; Translations: [Myalgia, other [...] on above: bmx helped Other gastrointestinal disorders (10 sources) Dysphagia; Translations: [Dysphagia, unspecified] 04-14-2024 Episodic Other liver diseases (10 sources) Elevated liver enzymes level; Translations: [Abnormal [...] improved with BMX Other lower respiratory disease (13 sources) Dyspnea on exertion; Translations: [Shortness of breath] 08-05-2018 Episodic Other nervous system disorders (1 source) Paresthesia; Translations: [Paresthesia of skin] Onset: 4 Episodic Other non-traumatic joint disorders (20 sources) Joint pain; Translations: [Joint pain] Resolved: 1 07-09-2018 Episodic Comment on above: joint pain , labs sh owing positive anti DNA DS ab, 1/2 sister with lupus will send to [facility] apt in November with Michelle Other non-traumatic joint disorders (12 sources) Pain in right knee; Translations: [Knee pain, right] Resolved: 1 08-31-2020 Episodic Other nutritional; endocrine; and metabolic disorders (20 sources) Body mass index 30+ - obesity; Translations: [BMI 33.0-33.9,adult] Resolved: 7 04-12-2017 Chronic Other screening for suspected conditions (not mental disorders or infectious disease) (20 sources) Breast neoplasm screening status; Translations: [Patient encounter status] Onset: 3 Resolved: 0 03-14-2015 Episodic Other upper respiratory disease (20 sources) Allergic rhinitis; Translations: [Allergic rhinitis] 07-09-2018 Chronic Comment on above: sees CR. White get a llergy shots, Other upper respiratory [...] because of abd pain Transient cerebral ischemia (10 sources) Transient cerebral ischemia; Translations: [Transient cerebral ischemic attack, unspecified] 01-13-2024 Chronic Unclassified (20 sources) Unclassified (20 [...] impaction Unclassified (9 sources) Knee pain, right Unclassified (4 sources) Helicobacter pylori gastritis Unclassified (4 sources) K29.70 - Gastritis, unspecified, without bleeding,B96.81 - Helicobacter pylori [H. pylori] as the cause of diseases classified elsewhere Unclassified (8 sources) M54.16 - Radiculopathy, lumbar region Urinary tract infections (20 sources) Urinary tract infectious disease; Translations: [UTI (urinary tract infection)] 09-12-2018 Episodic Past or Other Problems Problem Classification Problem Date Documented Date Episodic/Chronic Abdominal pain (20 sources) Epigastric pain; Translations: [Abdominal pain, epigastric] Onset: 02-01-2025 Resolved: 08-31-2020 09-14-2019 Episodic Comment on above: improved, using omep razole prn Influenza (20 sources) Influenza Intestinal infection (1 source) Other specified bacterial intestinal infections; Translations: [Other specified bacterial intestinal infections] Onset: 12-21-2024 Episodic Nonspecific chest pain (20 sources) Chest pain; Translations: [Chest pain] Onset: 03-29-2024 Resolved: 09-13-2015 09-13-2015 Episodic Comment on above: think GI will use PP I and better adn off mobic now. take PPI for 6 weeks then stop it see if returns. 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, hand] 09-14-2019 Comment on above: hands saw Dr Martinez, severe osteoarthritis hands Other ear and sense organ disorders (15 sources) Otalgia of right ear; Translations: [Ear pain, right] Resolved: 04-12-2017 04-14-2019 Comment on above: Rt ear clear, pos si nus pain, will treat with augmentin, if no improvement will send to ENT Other non-traumatic joint disorders (9 sources) Pain in right knee; Translations: [Knee pain, right] Resolved: 08-31-2020 03-16-2020 Comment on above: discussed Gel 1 lite rature given Pneumonia (except that caused by tuberculosis or sexually transmitted disease) (20 sources) Pneumonia (except that caused by tuberculosis or sexually transmitted disease) Spondylosis; intervertebral disc disorders; other back problems (20 sources) Chronic back pain ; Translations: [Dorsalgia, unspecified] Onset: 01-20-2025 08-27-2022 Episodic Syncope (20 sources) Syncope Unclassified [...] Test Name Value Interpretation Reference Range Facility Internal Medicine Office [facility] 05-10-2025 Internal Medicine Office Visit [facility] Internal Medicine [address] [place] [address] [place] [address] OFFICE VISIT Date of Service: 05/10/25 MR#: [id number] Acct: [id number] Name: DAVID HUBBARD Rep #: [id number] : 1945 Provider: Dr. Bronson murry MD Age/Sex: 79/F Location: [facility] Status: Signed Intake Vital Signs 01/20/25 14:07 03/29/25 15:26 05/10/25 11:19 Height 5 ft 8 in 5 ft 8 in 5 ft 8 in Weight: 189 lb BMI 28.7 BP 104/58 L Blood Pressure Location Lt brachial Position Sitting Respiration 16 Pulse 55 L Pulse Source Monitor Temp 97.6 F L Temp Source Temporal Pulse Oximetry (%) 96 Oxygen Delivery Method room air Intake Visit Reasons: 3 M FU 03/31: Called. Left VM 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: 3 M FU Is patient in pain?: No Allergies Seasonal Allergies: Uncoded Allergy (Mild, Verified 05/10/25 11:15) nasal drainage Medications ???Medication ???Instructions ???Recorded ???Confirmed ???Type albuterol sulfate 90 mcg/actuation 2 puff inhalation Q6H PRN 05/10/25 History aerosol inhaler budesonide 160 mcg-glycopyr 9 2 inh inhalation BID 04/11/2204/15 History mcg-formot 4.8 mcg/actuation HFA inhaler (Breztri Aerosphere) cetirizine 10 mg tablet (Zyrtec) 10 mg PO DAILY PRN 04/11/22 History prevagen PO 04/11/22 05/10/25 History hydrochlorothiazide 25 mg tablet See Rx Instructions .Route 5 05/10/25 Rx .COMPLEX #90 tabs montelukast 5 mg chewable tablet 10 mg PO DAILY PRN 01/20/25 History (Singulair) omeprazole 40 mg capsule,delayed 40 mg PO QDAY #90 caps 03/29/25 Rx release Held on 03/29/25. Instructions: HOLD for 2 weeks pending H. pylori stool testing aspirin 81 mg tablet 81 mg PO QDAY 05/10/25 05/10/25 Hi story Have you fallen in the past year?: Yes (09/2024 MISSED STEP, CHILDREN STOPPED FALL; NO INJU) [facility] History Lumbar radiculopathy Abnormal EKG Atypical chest pain Helicobacter pylori [...] does not use HPI HPI 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: 3 M FU Details: DAVID HUBBARD, is a 79-year-old female with a history of GERD and right knee pain, presenting for follow-up. The patient reports persistent GERD symptoms, including reflux, but notes that the burning sensation is not as severe as before. She has been treated for H. pylori three times and confirms that her most recent test was negative. She is currently taking omeprazole once daily and uses Tums as needed for symptom relief. She denies melena or hematochezia. She also reports chronic right knee pain, for which she received an injection from Dr. Guerrero. The injection provided temporary relief, but the pain has since returned, accompanied by a feeling of tightness with certain movements. She was advised that she needs a knee replacement but expresses fear about undergoing the procedure at this time. The patient mentions a recent weight gain and has been considering copv-get-ajbapdt diet pills. She also notes that she has not been as active due to back pain and knee issues, which led her to cancel a scheduled physical therapy appointment. She received her flu shot this year. History of hypertension, initial blood pressure was stable however repeat was 138/60 mmHg. She reports feeling lazy but denies any lightheadedness. She is currently taking hydrochlorothiazide but did not take it today. ROS Const Constitutional: No body ache, chills, excessive sweating, fatigue, fever(s), frequent falls, headache(s), snoring, weakness, sleep problems or change in appetite Eyes Eyes: No blurry vision, change in vision, bulging eyes, floaters, visual disturbances or Light sensitivity ENT ENT: No abnormal hearing, ear or mastoid pain, tinnit (more content not included)... Normal [facility] H. PYLORI STOOL AGon 025 H PYLORI STL AG Negative Normal Negative [facility] Comment on above: Result Comment: Perf ormed at: - [facility] [address] [id number] Photo Engraver: Tyler Ortega PhD, Phone: [phone] Performed By: #### L 3100.1950 #### [facility] Laboratory [address] [place], [place], [id number] Gastroenterology Visit Repor ton 03-29-2025 Gastroenterology Visit Report [facility] Gastroenterology [address] 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 Required: No Accompanied by: Self Is patient in pain?: No Allergies Seasonal Allergies: Uncoded Allergy (Mild, Verified 03/29/25 15:17) nasal drainage Medications ???Medication ???Instructions ???Recorded ???Confirmed ???Type albuterol sulfate 90 mcg/actuation 2 puff inhalation Q6H PRN 03/29/25 History aerosol inhaler budesonide 160 mcg-glycopyr 9 2 inh inhalation BID 04/11/2203/15 History mcg-formot 4.8 mcg/actuation HFA inhaler (Breztri Aerosphere) cetirizine 10 mg tablet (Zyrtec) 10 mg PO DAILY PRN 04/11/22 History prevagen PO 04/11/22 03/29/25 History hydrochlorothiazide 25 mg tablet See Rx Instructions .Route 5 03/29/25 Rx .COMPLEX #90 tabs montelukast 5 mg chewable tablet 10 mg PO DAILY PRN 01/20/25 History (Singulair) omeprazole 40 mg capsule,delayed 40 mg PO QDAY #90 caps 03/29/25 Rx release Held on 03/29/25. Instructions: HOLD for 2 weeks pending H. pylori stool testing Have you fallen in the past year?: Yes PFSH Medical History Lumbar radiculopathy Abnormal EKG Atypical chest pain Helicobacter pylori [...] does not use HPI HPI 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: 4 M FU Details: OV 02/01/2025 DAVID HUBBARD, is a 79 F who presents to the office today for establishment with [facility] regarding concerns of gastritis. History of gastroesophageal reflux disease and recent H. pylori gastritis, with antibiotic treatments in May and again in December. She cannot remember the names of the medicines only that she took one of them 3 times a day and it tasted awful. Discussed possibility of recurrent or failed extermination of HP bacteria by previous treatments. Discussed care plan with her. stool for H.pylori Ag continue omeprazole 40mg PO daily 30 minutes before eating office FU pending stool EGD 05/2024 (Elizabeth) Bx. positive for H. pylori - treated 11/30/2024 H. Pylori Breath Testing positive - no treatment 12/18/2024 Stool H. Pylori positive - Dr. Johnson 02/03/2025 Stool H. Pylori positive - reports she completed treatment with Voquezna triple therapy late February - she resume Omeprazole 40mg once daily when she completed ATB - denies any weight loss, N/V or HB The patient is a 79-year-old female presenting with persistent epigastric pain and for management of H. pylori infection. The patient was previously diagnosed with H. pylori infection in May 2024, November and December 2024. Initially noted with positive biopsy on esophagogastroduodenoscop y (EGD) in May of 2024. Initial treatment was administered by Dr. Johnson, though the specifics were not recalled by the patient. She then tested positive breath testing November 2024, stool testing December 2024 and completed a second round of ATB. She recently completed a 3rd round of ATB with Voquezna triple therapy the end of February. Following the February treatment during which the patient was at her granddaughter's wedding, she resumed omeprazole therapy but experienced a return in epigastric discomfort upon discontinuing the medication. She notes heaviness (more content not included)... Normal [facility] H. PYLORI STOOL AGon 025 H PYLORI STL AG Positive Abnormal Negative [facility] Comment on above: Result Comment: Perf ormed at: [place] [facility] [address] [id number] Photo Engraver: Tyler Ortega PhD, Phone: [phone] Performed By: #### L 3100.1950 #### [facility] [address] [place], [place], [address] Stool Helicobacter pylori an tigen detection by immunoassayOrdered By: Adriana Gomez on 02-03-2025 H. pylori Ag IA Ql (Stl) Positive High Negative [facility] Comment on above: Performed at: [facility] - [facility] [address] [id number] Director: Tyler Ortega PhD, Phone: [phone] Gastroenterology Visit Repor ton 02-01-2025 Gastroenterology Visit Report [facility] [address] [place] [address] OFFICE VISIT Date of Service: 02/01/25 MR#: [id number] Acct: [id number] Name: DAVID HUBBARD Rep #: [id number] : 1945 Provider: KARO cowan Age/Sex: 79/F Location: [facility] Status: Signed Intake Vital Signs 01/20/25 14:07 Height 5 ft 8 in Weight: 187 lb BMI 28.4 BP 124/64 H Blood Pressure Location Lt brachial Position Sitting Respiration 16 Pulse 59 L Pulse Source Monitor Temp 97.6 F L Temp Source Temporal Pulse Oximetry (%) 93 Oxygen Delivery Method room air Intake Visit Reasons: GASTRITIS 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: 4 M FU Allergies Seasonal Allergies: Uncoded Allergy (Mild, Verified 02/01/25 13:56) nasal drainage Have you fallen in the past year?: No PFSH Medical History Lumbar radiculopathy Abnormal EKG Atypical chest pain Helicobacter pylori [...] does not use HPI HPI 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: 4 M FU Details: DAVID HUBBARD, is a 79 F who presents to the office today for establishment with [facility] regarding concerns of gastritis. History of gastroesophageal reflux disease and H. pylori gastritis. Previously seen by , had bidirectional endoscopies with H.pylori infection diagnosed by pathology. She denied other incidental findings from endoscopic procedures. She is requesting to transfer her GI care. Recently had repeat testing which came back positive for H. pylori. Symptoms had improved with antibiotics but persist, with reduced burping, occasional burning and gas. Chronic anemia, hgb 11.8 x2yrs. She has a bad memory for remembering pill names. She reports, the whole reason I agreed to have those scopes in May last year was to treat this same pain I'm having now. She reports epigastric heaviness with increased belching. She states that she used to have constipation but that it is now clearing up with the PRN use of Miralax. She is taking omeprazole 40mg daily. She reports the heaviness is not daily and lasts 2 to 3 minutes, well after eating, and will take a Tums. She eats at least 3 hours before going to bed. Has not noted that specific foods that will trigger her symptoms. She reports cough, throat clearing, and postnasal drip from her seasonal allergies but also states that her mother had bad issues with reflux. She denies hematochezia and melena. 5.19.25 H.pylori breath test + 6.6.25 H.pylori stool Ag + ROS Const Constitutional: Positive for fatigue; No fever(s) or weight change ENT ENT: No difficulty swallowing Gastro GI: No abdominal pain, belching, bloating, change in bowel habits, change in stool character, coffee ground emesis, constipation, cramping, diarrhea, heartburn, difficulty swallowing, feeling full early, excessive flatus, incontinent of stools, Vomiting blood/hematemesis, Blood in stool, loose stools, Black,tarry stools, nausea/dyspepsia, pain with swallowing, vomiting or other Musc Musculoskeletal: Positive for abnormal gait, joint pain, back pain, numbness, stiffness, tingling and Arthritis Skin Skin: No yellowing of the eye or itchy eyes Neuro Neurology: Positive for abnormal gait, numbness and tingling Psych Psychiatric: Positive for anxiety, Positive for depression and Positive for hyperactivity Endo Endocrine: Positive for fatigue; No weight change Aller/Imm Allergy/Immunologic: No itchy eyes Zane/Lymp Hematologic/Lymphatic: No easy bleeding or easy bruising Exam Const General: cooperative, healthy appearing, comfortable, no acute distress and well groomed Nutritional Appearance: average body habitus Orientation: alert and oriented x3 HENMT Head: normal to inspection Ears: hearing grossly normal bilaterally Eyes General: appeara (more content not included)... Normal [facility] Anion gap in Serum or Plasma Ordered By: Bronson Bynum on 01-20-2025 Anion gap [Moles/Vol] 11 mmol/L - [facility] BUN/creatinine ratioOrdered By: Bronson Bynum on 01-20-2025 Urea nitrogen/Creatinine [Mass ratio] 20.6 mg/mg High - [facility] Basic Metabolic Profile (BMP )on 01-20-2025 BUN/CRE 20.6 RATIO High 05-03 [facility] Comment on above: Performed By: #### L 500.2500 #### [facility] Laboratory [address] [place], [address] Calcium [Mass/Vol] 9.4 mg/dL Normal 7.6-11.0 [facility] Comment on above: Performed By: #### L 500.2500 #### [facility] [address] [place], [address] Chloride [Moles/Vol] 102 mmol/L Normal 98-108 [facility] Comment on above: Performed By: #### L 500.2500 #### [facility] [address] [place], [address] CO2 [Moles/Vol] 26.2 mmol/L Normal 21.0-32.0 [facility] Comment on above: Performed By: #### L 500.2500 #### [facility] [address] [place], [address] Creatinine [Mass/Vol] 1.05 mg/dL Normal 0.70-1.20 [facility] Comment on above: Performed By: #### L 500.2500 #### [facility] [address] [place], [address] GAP 11 Normal - [facility] Comment on above: Performed By: #### L 500.2500 #### [facility] [address] [place], [address] GFR/1.73 sq M.predicted among non-blacks MDRD (S/P/Bld) [Vol rate/Area] 54 mL/min/{1.73_m2} Low >60 [facility] Comment on above: Result Comment: mL/m in/1.73m2 CKD-EPI Creatinine Equation (2020) Performed By: #### L 500.2500 #### [facility] [address] [place], [address] Glucose [Mass/Vol] 81 mg/dL Normal 70-99 [facility] Comment on above: Performed By: #### L 500.2500 #### [facility] [address] [place], [address] Potassium [Moles/Vol] 4.2 mmol/L Normal 3.3-5.1 [facility] Comment on above: Performed By: #### L 500.2500 #### [facility] [address] [place], [address] Sodium [Moles/Vol] 139 mmol/L Normal 133-145 [facility] Comment on above: Performed By: #### L 500.2500 #### [facility] [address] [place], [address] Urea nitrogen [Mass/Vol] 22 mg/dL High 4-19 [facility] Comment on above: Performed By: #### L 500.2500 #### [facility] [address] [place], [address] Carbon dioxide, total [Moles /volume] in Central venous bloodOrdered By: Bronson Bynum on 01-20-2025 CO2 [Moles/Vol] 26.2 mmol/L 21.0-32.0 [facility] Chloride assayOrdered By: Geovany Bynum on 01-20-2025 Chloride [Moles/Vol] 102 mmol/L 98-108 [facility] Glomerular filtration rate ( GFR) estimation/1.73 sq m using serum, plasma, or whole bOrdered By: Bronson Bynum on 01-20-2025 GFR/1.73 sq M.predicted among non-blacks MDRD (S/P/Bld) [Vol rate/Area] 54 mL/min/{1.73_m2} Low >60 [facility] Comment on above: mL/min/1.73m2 CKD-EP I Creatinine Equation (2020) Internal Medicine Office Vis iton 01-20-2025 Internal Medicine Office Visit [facility] [address] [place] [address] [place] [address] OFFICE VISIT Date of Service: 01/20/25 MR#: [id number] Acct: [id number] Name: DAVID HUBBARD Rep #: [id number] : 1945 Provider: Dr. Bronson murry MD Age/Sex: 79/F Location: [facility] Status: Signed Intake Vital Signs 09/16/24 13:33 11/27/24 14:02 01/20/25 14:07 Height 5 ft 8 in 5 ft 8 in 5 ft 8 in Weight: 187 lb BMI 28.4 BP 124/64 H Blood Pressure Location Lt brachial Position Sitting Respiration 16 Pulse 59 L Pulse Source Monitor Temp 97.6 F L Temp Source Temporal Pulse Oximetry (%) 93 Oxygen Delivery Method room air Intake Visit Reasons: 4 M FU 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: 4 M FU Is patient in pain?: Yes (LOWER BACK ACHE) Pain scale (1-10): 8 Allergies Seasonal Allergies: Uncoded Allergy (Mild, Verified 01/20/25 14:02) nasal drainage Medications ???Medication ???Instructions ???Recorded ???Confirmed ???Type albuterol sulfate 90 mcg/actuation 2 puff inhalation Q6H PRN 01/20/25 History aerosol inhaler budesonide 160 mcg-glycopyr 9 2 inh inhalation BID 04/11/22 07/0 04/08 History mcg-formot 4.8 mcg/actuation HFA inhaler (Breztri Aerosphere) cetirizine 10 mg tablet (Zyrtec) 10 mg PO DAILY PRN 04/11/22 History prevagen PO 04/11/22 01/20/25 History omeprazole 40 mg capsule,delayed 40 mg PO QDAY #90 caps 07/20/24 Rx release hydrochlorothiazide 25 mg tablet See Rx Instructions .Route 5 01/20/25 Rx .COMPLEX #90 tabs montelukast 5 mg chewable tablet 10 mg PO DAILY PRN 01/20/25 History (Singulair) Have you fallen in the past year?: Yes (FELL DOWN STEPS IN 09/2024; NO INJURY) [facility] Medical History (Updated 01/20/25 @ 17:[address] Bronson Bynum MD) Lumbar radiculopathy Abnormal EKG Atypical chest pain Helicobacter pylori [...] does not use HPI HPI 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: 4 M FU Details: DAVID HUBBARD, is a 79-year-old female presenting for follow-up of her chronic conditions. History of gastroesophageal reflux disease and H. pylori gastritis. Recently had repeat testing which came back positive for H. pylori, subsequently started on another eradication therapy by her adhesion tester. Symptoms have improved with antibiotics but persist, with reduced burping, occasional burning and gas. She also reports lower back pain linked to standing and walking, severe enough to hinder straightening up. Chronic numbness in the left leg is noted, with decreased tingling and burning. No change in bowel or bladder habit Hypertension is managed with hydrochlorothiazide, with a current blood pressure of 124/64 mmHg. Thumb joint pain occasionally limits movement, she states that this is chronic. Not open to intervention at this time. Had previously been seen at the [facility]. Attestation: Documentation on this patient encounter was supported using ambient scribe technology/ voice AI technology. The patient consented to recording for the purpose of documenting the encounter. Provider reviewed content of the generated note prior to signature. ROS Const Constitutional: No body ache, chills, excessive sweating, fatigue, fever(s), frequent falls, headache(s), snoring, weakness, sleep problems or change in appetite Eyes Eyes: No blurry vision, change in vision, vision loss, dry eyes or Light sensitivity ENT ENT: No abnormal hearing, ear or mastoid pain, tinnitus, dizziness/vertigo, nasal congestion, nasal discharge, headache(s), neck pain or sore throat Resp Respiratory: No cough, shortness of breath, snoring or wheezing Cardio Cardiology: No chest pain at rest, chest pain with exertion, excessive sweating, shortness of breath, dyspnea on exertion, lightheadedness, orthopnea or palpitations (more content not included)... Normal [facility] Potassium measurement (mass/ volume)Ordered By: Bronson Bynum on 01-20-2025 Potassium (Unsp spec) [Mass/Vol] 4.2 mmol/L 3.3-5.1 [facility] Serum creatinine measurement (mass/volume)Ordered By: Bronson Bynum on 01-20-2025 Creatinine [Mass/Vol] 1.05 mg/dL 0.70-1.20 [facility] Serum glucose measurement (m ass/volume)Ordered By: Brnoson Bynum on 01-20-2025 Glucose [Mass/Vol] 81 mg/dL 70-99 [facility] Serum or plasma calcium juan ramon urement (mass/volume)Ordered By: Bronson Bynum on 01-20-2025 Calcium [Mass/Vol] 9.4 mg/dL 7.6-11.0 [facility] Serum or plasma urea nitroge n measurement (mass/volume)Ordered By: Bronson Bynum on 01-20-2025 Urea nitrogen [Mass/Vol] 22 mg/dL High 4-19 [facility] Sodium levelOrdered By: Eugene Bynum on 01-20-2025 Sodium [Moles/Vol] 139 mmol/L 133-145 [facility] Cardiovascular stress test r eportOrdered By: Francesco Falk on 01-08-2025 Study report [facility] [address] [place] [address] MR#: [id number] Acct: [id number] Name: DAVID HUBBARD Rep #: [id number] : 1945 79 From: Francesco Falk MD Primary Care: Dr. Bronson Bynum MD atus: REG CLI Referring Dr: Bronson Bynum MD Sex: F AA Stress Test Report Date: 01/08/2025 Procedure: Exercise tolerance test/imaging study Indications: Chest pain Consent: Per the patient Procedure: The patient exercised on a Jameson protocol for 5 minutes and 7 seconds achieving a peak heart rate of 134 bpm (95% predicted maximal heart rate) with a peak blood pressure 174/84 mmHg and a peak MET capacity of 7.0 METs. The baseline ECG demonstrated sinus rhythm. The peak exercise ECG did not show any ischemic changes. Rare PVC noted. The functional capacity was considered average for age. There was no complaint of chest discomfort during exercise or recovery. The examination was discontinued secondary to target heart rate being achieved. The patient was injected with 11.7 mCi of technetium 99m Cardiolite and subsequently rest SPECT Cardiolite nuclear imaging was obtained in the horizontal long, vertical long, and short axis views. Post-exercise, the patientwas injected with 34.2 mCi of technetium 99m Cardiolite and subsequently stress SPECT Cardiolite nuclear imaging was obtained in the horizontal long, vertical long, and short axis views. A gated Cardiolite study at peak stress was obtained. Rest and stress SPECT Cardiolite nuclear imaging status post realignment, normalization, and attenuation correction, demonstrates the appearance of relative uniform tracer uptake and myocardial perfusion appearing within normal limits. There is end systolic thickening and brightening. The gated Cardiolitestudy demonstrates myocardial thickening and inward wall motion. The reported LVEF is 73%. Impression: 1. Technically adequate (percent predicted maximal heart rate greater than 85%)exercise tolerance test 2. Peak exercise ECG with no diagnostic ischemic changes. No angina reported 3. Rare PVC noted 4. Rest and stress SPECT Cardiolite nuclear imaging demonstrate relative uniform tracer uptake and myocardial perfusion appearing within normal limits. 5. The gated Cardiolite study reports an LVEF of 73%. This note was generated with [employer]ax[employer] software. It may contain incorrectwords, spelling, and punctuation that were not noted in checking the note beforesigning. 01/08/258 Date _ Francesco Falk MD CC: Dr. Bronson Bynum MD ~ Date Dictated: 01/08/251315 Date Transcribed: 01/08/251315 Loss Prevention Agent: DESI Flores [facility] Work Phone: Stress Reporton 01-08-2025 Stress Report [facility] [address] [place] [address] MR#: [id number] Acct: [id number] Name: DAVID HUBBARD Rep #: [id number] : 1945 79 From: Francesco Falk MD Primary Care: Dr. Bronson Bynum MD Status: REG CLI Referring Dr: Bronson Bynum MD Sex: F AA Stress Test Report Date: 01/08/2025 Procedure: Exercise tolerance test/imaging study Indications: Chest pain Consent: Per the patient Procedure: The patient exercised on a Jameson protocol for 5 minutes and 7 seconds achieving a peak heart rate of 134 bpm (95% predicted maximal heart rate) with a peak blood pressure 174/84 mmHg and a peak MET capacity of 7.0 METs. The baseline ECG demonstrated sinus rhythm. The peak exercise ECG did not show any ischemic changes. Rare PVC noted. The functional capacity was considered average for age. There was no complaint of chest discomfort during exercise or recovery. The examination was discontinued secondary to target heart rate being achieved. The patient was injected with 11.7 mCi of technetium 99m Cardiolite and subsequently rest SPECT Cardiolite nuclear imaging was obtained in the horizontal long, vertical long, and short axis views. Post-exercise, the patient was injected with 34.2 mCi of technetium 99m Cardiolite and subsequently stress SPECT Cardiolite nuclear imaging was obtained in the horizontal long, vertical long, and short axis views. A gated Cardiolite study at peak stress was obtained. Rest and stress SPECT Cardiolite nuclear imaging status post realignment, normalization, and attenuation correction, demonstrates the appearance of relative uniform tracer uptake and myocardial perfusion appearing within normal limits. There is end systolic thickening and brightening. The gated Cardiolite study demonstrates myocardial thickening and inward wall motion. The reported LVEF is 73%. Impression: 1. Technically adequate (percent predicted maximal heart rate greater than 85%) exercise tolerance test 2. Peak exercise ECG with no diagnostic ischemic changes. No angina reported 3. Rare PVC noted 4. Rest and stress SPECT Cardiolite nuclear imaging demonstrate relative uniform tracer uptake and myocardial perfusion appearing within normal limits. 5. The gated Cardiolite study reports an LVEF of 73%. This note was generated with [employer] software. It may contain incorrect words, spelling, and punctuation that were not noted in checking the note before signing. 01/08/25 1318 Date Francesco Falk MD CC: Dr. Bronson Bynum MD Date Dictated: 01/08/25 1316 Date Transcribed: 01/08/251315 Loss Prevention Agent: DESI Signed Normal [facility] H. PYLORI STOOL AGon 025 H PYLORI STL AG Positive Abnormal Negative [facility] Comment on above: Result Comment: Perf ormed at: CB - [facility] [address] [id number] Photo Engraver: Tyler Ortega PhD, Phone: [phone] Performed By: #### L 9348.6652 #### [facility] Laboratory [facility] [place], [address] Stool Helicobacter pylori an tigen detection by immunoassayOrdered By: Tyler Johnson on 12-18-2024 H. pylori Ag IA Ql (Stl) Positive High Negative [facility] Comment on above: Performed at: [facility] [address] [id number] Director: Tyler Ortega PhD, Phone: [phone] H pylori Breath Teston 12-02 H.Pylori Breath Positive Abnormal Negative [facility] Comment on above: Order Comment: Reaso n for Exam: Increased Reflux Result Comment: Perf ormed at: [facility] [address] [id number] Photo Engraver: Tyler Ortega PhD, Phone: [phone] Performed By: #### L 3100.1960 #### [facility] Laboratory [address] [place], [place], [id number] Helicobacter pylori breath t estOrdered By: Bronson Bynum on 11-30-2024 CO2 post dose urea Ql (Exhl gas) Positive High Negative [facility] Comment on above: Performed at: [facility] [address] [id number] Director: Tyler Ortega PhD, Phone: [phone] Absolute lymphocyte countOrd ered By: Bronson Bynum on 11-27-2024 Lymphocytes Auto (Unsp spec) [#/Vol] 1.64 10*3/uL 0.83-4.51 [facility] Absolute neutrophil countOrd ered By: Bronson Bynum on 11-27-2024 Neutrophils (Bld) [#/Vol] 2.4 10*3/uL 2.0-7.7 [facility] Anion gap in Serum or Plasma Ordered By: Bronson Bynum on 11-27-2024 Anion gap [Moles/Vol] 11 mmol/L 5-15 [facility] Automated lymphocyte count a s percentage of total leukocytesOrdered By: Bronson Bynum on 11-27-2024 Lymphocytes/100 WBC Auto (Unsp spec) 36.0 % - [facility] BUN/creatinine ratioOrdered By: Bronson Bynum on 11-27-2024 Urea nitrogen/Creatinine [Mass ratio] 16.1 mg/mg 10- [facility] Basophil percentageOrdered B y: Bronson Bynum on 11-27-2024 Basophils/100 WBC (Bld) 0.9 % 0-1 [facility] Bilirubin, totalOrdered By: Bronson Bynum on 11-27-2024 Bilirubin [Mass/Vol] 0.30 mg/dL 0.00-1.30 [facility] CBC W/Diff, Automatedon 11-12 Absolute Lymph 1.64 X10 3/uL Normal 0.83-4.51 [facility] Comment on above: Performed By: #### L 100.0100, L500.4050 #### [facility] [address] [place], [address] Absolute Neut 2.4 X10 3/uL Normal 2.0-7.7 [facility] Comment on above: Performed By: #### L 100.0100, L500.4050 #### [facility] [address] [place], [address] Basophils/100 WBC (Bld) 0.9 % Normal 0-1 [facility] Comment on above: Performed By: #### L 100.0100, L500.4050 #### [facility] [address] [place], [address] Eosinophils/100 WBC (Bld) 5.1 % High 0-5 [facility] Comment on above: Performed By: #### L 100.0100, L500.4050 #### [facility] [address] [place], [address] Erythrocyte distribution width (RBC) [Ratio] 12.4 % Normal 11.6-14.6 [facility] Comment on above: Performed By: #### L 100.0100, L500.4050 #### [facility] [address] [place], [address] Hematocrit (Bld) [Volume fraction] 35.7 % Low 37-47 [facility] Comment on above: Performed By: #### L 100.0100, L500.4050 #### [facility] [address] [place], [address] Hemoglobin (Bld) [Mass/Vol] 11.7 g/dL Low 12.0-15.0 [facility] Comment on above: Performed By: #### L 100.0100, L500.4050 #### [facility] [address] [place], [address] IG% 0.200 Normal 0.0-0.9 [facility] Comment on above: Result Comment: IG% - Immature Granulocytes (promyelocytes, myelocytes and metamyelocytes) > 1% indicates that a LEFT SHIFT is Present. Performed By: #### L 100.0100, L500.4050 #### [facility] [address] [place], [address] Lymphocytes/100 WBC (Bld) 36.0 % Normal 19-41 [facility] Comment on above: Performed By: #### L 100.0100, L500.4050 #### [facility] [address] [place], [address] MCH (RBC) [Entitic mass] 30.0 pg Normal 27.0-32.0 [facility] Comment on above: Performed By: #### L 100.0100, L500.4050 #### [facility] [address] [place], [address] MCHC (RBC) [Mass/Vol] 32.8 g/dL Normal 32-36 [facility] Comment on above: Performed By: #### L 100.0100, L500.4050 #### [facility] [address] [place], [address] MCV (RBC) [Entitic vol] 91.5 fL Normal 81-99 [facility] Comment on above: Performed By: #### L 100.0100, L500.4050 #### [facility] [address] [place], [address] Monocytes/100 WBC (Bld) 5.3 % Normal 0-10 [facility] Comment on above: Performed By: #### L 100.0100, L500.4050 #### [facility] [address] [place], [address] Neutrophils/100 WBC (Bld) 52.5 % Normal 47-70 [facility] Comment on above: Performed By: #### L 100.0100, L500.4050 #### [facility] [address] [place], [address] Nucleated RBC (Bld) [#/Vol] 0 10*3/uL Normal 0-5 [facility] Comment on above: Performed By: #### L 100.0100, L500.4050 #### [facility] [address] [place], [address] Platelet mean volume (Bld) [Entitic vol] 11.0 fL Normal 6.2-12.0 [facility] Comment on above: Performed By: #### L 100.0100, L500.4050 #### [facility] [address] [place], [address] Platelets (Bld) [#/Vol] 224 10*3/uL Normal 150-450 [facility] Comment on above: Performed By: #### L 100.0100, L500.4050 #### [facility] [address] [place], [address] RBC (Bld) [#/Vol] 3.90 10*6/uL Low 4.2-5.4 [facility] Comment on above: Performed By: #### L 100.0100, L500.4050 #### [facility] [address] [place], [address] RDW SD 41.5 fl Normal 35.1-43.9 [facility] Comment on above: Performed By: #### L 100.0100, L500.4050 #### [facility] [address] [place], [address] WBC (Bld) [#/Vol] 4.6 10*3/uL Normal 4.4-11.0 [facility] Comment on above: Performed By: #### L 100.0100, L500.4050 #### [facility] [address] [place], [address] Carbon dioxide, total [Moles /volume] in Central venous bloodOrdered By: Bronson Bynum on 11-27-2024 CO2 [Moles/Vol] 25.1 mmol/L 21.0-32.0 [facility] Chloride assayOrdered By: Geovany Bynum on 11-27-2024 Chloride [Moles/Vol] 104 mmol/L 98-108 [facility] Comprehensive Metabolic Prof ilon 11-27-2024 Albumin [Mass/Vol] 4.2 g/dL Normal 3.4-4.8 [facility] Comment on above: Performed By: #### L 100.0100, L500.4050 #### [facility] [address] [place], [address] Albumin/Globulin [Mass ratio] 1.4 {ratio} Normal 0.9-2.4 [facility] Comment on above: Performed By: #### L 100.0100, L500.4050 #### [facility] [address] [place], [address] ALK PHOS 82 U/L Normal 35-104 [facility] Comment on above: Performed By: #### L 100.0100, L500.4050 #### [facility] [address] [place], [address] ALT [Catalytic activity/Vol] 18 U/L Normal <=34 [facility] Comment on above: Performed By: #### L 100.0100, L500.4050 #### [facility] [address] [place], [address] AST [Catalytic activity/Vol] 21 U/L Normal <=31 [facility] Comment on above: Performed By: #### L 100.0100, L500.4050 #### [facility] [address] [place], [address] Bilirubin [Mass/Vol] 0.30 mg/dL Normal 0.00-1.30 [facility] Comment on above: Performed By: #### L 100.0100, L500.4050 #### [facility] [address] [place], [address] BUN/CRE 16.1 RATIO Normal 10-20 [facility] Comment on above: Performed By: #### L 100.0100, L500.4050 #### [facility] [address] [place], [address] Calcium [Mass/Vol] 9.5 mg/dL Normal 7.6-11.0 [facility] Comment on above: Performed By: #### L 100.0100, L500.4050 #### [facility] [address] [place], [address] Chloride [Moles/Vol] 104 mmol/L Normal 98-108 [facility] Comment on above: Performed By: #### L 100.0100, L500.4050 #### [facility] [address] [place], [address] CO2 [Moles/Vol] 25.1 mmol/L Normal 21.0-32.0 [facility] Comment on above: Performed By: #### L 100.0100, L500.4050 #### [facility] [address] [place], [address] Creatinine [Mass/Vol] 1.14 mg/dL Normal 0.70-1.20 [facility] Comment on above: Performed By: #### L 100.0100, L500.4050 #### [facility] [address] [place], [address] GAP 11 Normal 5-15 [facility] Comment on above: Performed By: #### L 100.0100, L500.4050 #### [facility] [address] [place], [address] GFR/1.73 sq M.predicted among non-blacks MDRD (S/P/Bld) [Vol rate/Area] 49 mL/min/{1.73_m2} Low >60 [facility] Comment on above: Result Comment: mL/m in/1.73m2 CKD-EPI Creatinine Equation (2020) Performed By: #### L 100.0100, L500.4050 #### [facility] [address] [place], [address] Globulin (S) [Mass/Vol] 3.0 g/dL Normal 2.2-4.2 [facility] Comment on above: Performed By: #### L 100.0100, L500.4050 #### [facility] [address] [place], [address] Glucose [Mass/Vol] 93 mg/dL Normal 70-99 [facility] Comment on above: Performed By: #### L 100.0100, L500.4050 #### [facility] [address] [place], [address] Potassium [Moles/Vol] 4.0 mmol/L Normal 3.3-5.1 [facility] Comment on above: Performed By: #### L 100.0100, L500.4050 #### [facility] [address] [place], [address] Sodium [Moles/Vol] 139 mmol/L Normal 133-145 [facility] Comment on above: Performed By: #### L 100.0100, L500.4050 #### [facility] [address] [place], [address] T PROT 7.2 g/dL Normal 5.9-8.4 [facility] Comment on above: Performed By: #### L 100.0100, L500.4050 #### [facility] [address] [place], [address] Urea nitrogen [Mass/Vol] 18 mg/dL Normal 4-19 [facility] Comment on above: Performed By: #### L 100.0100, L500.4050 #### [facility] [address] [place], [address] Eosinophil percentageOrdered By: Bronson Bynum on 11-27-2024 Eosinophils/100 WBC (Bld) 5.1 % High 0-5 [facility] Erythrocyte distribution wid th ratioOrdered By: [facility] B[facility] on 11-27-2024 Erythrocyte distribution width (RBC) [Ratio] 12.4 % 11.6-14.6 [facility] Erythrocyte distribution wid th standard deviationOrdered By: Eugenefresnosherry Bynum on 11-27-2024 Erythrocyte distribution width (RBC) [Ratio] 41.5 fl 35.1-43.9 [facility] Glomerular filtration rate ( GFR) estimation/1.73 sq m using serum, plasma, or whole bOrdered By: Bronson Bynum on 11-27-2024 GFR/1.73 sq M.predicted among non-blacks MDRD (S/P/Bld) [Vol rate/Area] 49 mL/min/{1.73_m2} Low >60 [facility] Comment on above: mL/min/1.73m2 CKD-EP I Creatinine Equation (2020) Hematocrit Auto (Bld) [Volum e fraction]Ordered By: Bronson Bynum on 11-27-2024 Hematocrit (Bld) [Volume fraction] 35.7 % Low 37-47 [facility] Hemoglobin measurementOrdere d By: Bronson Bynum on 11-27-2024 Hemoglobin (Bld) [Mass/Vol] 11.7 g/dL Low 12.0-15.0 [facility] Immature granulocytes/100 WB C Auto (Bld)Ordered By: Bronson Bynum on 11-27-2024 Immature granulocytes/100 WBC (Bld) 0.200 % 0.0-0.9 [facility] Comment on above: IG% - Immature Granu locytes (promyelocytes, myelocytes and metamyelocytes) > 1% indicates that a LEFT SHIFT is Present. Internal Medicine Office Vis iton 11-27-2024 Internal Medicine Office Visit [facility] [address] [place] [address] [place] [address] OFFICE VISIT Date of Service: 11/27/24 MR#: [id number] Acct: [id number] Name: DAVID HUBBARD Rep #: [id number] : 1945 Provider: Dr. Bronson murry MD Age/Sex: 79/F Location: [facility] Status: Signed Intake Vital Signs 09/16/24 13:33 [...] RIB CAGE 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: pain in chest Director Of Food And Nutrition Services Required: No Accompanied by: Self Is patient [...] 160 mcg-glycopyr 9 2 inh inhalation BID 04/11/22/01/06 History mcg-formot 4.8 mcg/actuation HFA inhaler (Breztri [...] you fallen in the past year?: No [facility] Medical History (Updated 11/27/24 @ 20:57 by [...] reports compliance with it. Has also taken [id number] Tums as needed. Does not pay attention [...] in b (more content not included)... Normal [facility] Laboratory - Chemistry and C hemistry - challengeOrdered By: Bronson Bynum on 11-27-2024 AST [Catalytic activity/Vol] 21 U/L <32 [facility] MCV (mean corpuscular volume ) determinationOrdered By: Bronson Bynum on 11-27-2024 MCV (RBC) [Entitic vol] 91.5 fL 81-99 [facility] Mean corpuscular hemoglobin (MCH) determinationOrdered By: Bronson Bynum on 11-27-2024 MCH (RBC) [Entitic mass] 30.0 pg 27.0-32.0 [facility] Mean corpuscular hemoglobin concentration (MCHC) determinationOrdered By: Bronson Bynum on 11-27-2024 MCHC (RBC) [Mass/Vol] 32.8 g/dL 32-36 [facility] Mean platelet volume determi nationOrdered By: Bronson Bynum on 11-27-2024 Platelet mean volume (Bld) [Entitic vol] 11.0 fL 6.2-12.0 [facility] Monocyte percentageOrdered B y: Bronson Bynum on 11-27-2024 Monocytes/100 WBC (Bld) 5.3 % 0-10 [facility] Neutrophil percentageOrdered By: Bronson Bynum on 11-27-2024 Neutrophils/100 WBC (Bld) 52.5 % 47-70 [facility] Nucleated red blood cell per centageOrdered By: Bronson Bynum on 11-27-2024 Nucleated RBC/100 WBC (Bld) [Ratio] 0 % 0-5 [facility] Platelet countOrdered By: Geovany Bynum on 11-27-2024 Platelets (Bld) [#/Vol] 224 10*3/uL 150-450 [facility] Potassium measurement (mass/ volume)Ordered By: Bronson Bynum on 11-27-2024 Potassium (Unsp spec) [Mass/Vol] 4.0 mmol/L 3.3-5.1 [facility] RBC Auto (Bld) [#/Vol]Ordere d By: Bronson Bynum on 11-27-2024 RBC (Bld) [#/Vol] 3.90 10*6/uL Low 4.2-5.4 [facility] Serum creatinine measurement (mass/volume)Ordered By: Bronson Bynum on 11-27-2024 Creatinine [Mass/Vol] 1.14 mg/dL 0.70-1.20 [facility] Serum globulin measurementOr dered By: Bronson Bynum on 11-27-2024 Globulin (S) [Mass/Vol] 3.0 g/dL 2.2-4.2 [facility] Serum glucose measurement (m ass/volume)Ordered By: Bronson Bynum on 11-27-2024 Glucose [Mass/Vol] 93 mg/dL 70-99 [facility] Serum or plasma alanine sifuentes otransferase (ALT) measurementOrdered By: Bronson Bynum on 11-27-2024 ALT [Catalytic activity/Vol] 18 U/L <35 [facility] Serum or plasma albumin juan ramon urement (mass/volume)Ordered By: Bronson Bynum on 11-27-2024 Albumin [Mass/Vol] 4.2 g/dL 3.4-4.8 [facility] Serum or plasma albumin/glob ulin mass ratioOrdered By: Bronson Bynum on 11-27-2024 Albumin/Globulin [Mass ratio] 1.4 {ratio} 0.9-2.4 [facility] Serum or plasma alkaline ary sphatase measurementOrdered By: Bronson Bynum on 11-27-2024 ALP [Catalytic activity/Vol] 82 U/L 35-104 [facility] Serum or plasma calcium juan ramon urement (mass/volume)Ordered By: Bronson Bynum on 11-27-2024 Calcium [Mass/Vol] 9.5 mg/dL 7.6-11.0 [facility] Serum or plasma urea nitroge n measurement (mass/volume)Ordered By: Bronson Bynum on 11-27-2024 Urea nitrogen [Mass/Vol] 18 mg/dL 4-19 [facility] Sodium levelOrdered By: Eugene fischertorsten Fletcher on 11-27-2024 Sodium [Moles/Vol] 139 mmol/L 133-145 [facility] Total proteinOrdered By: [place] Bynum on 11-27-2024 Protein [Mass/Vol] 7.2 g/dL 5.9-8.4 [facility] White blood cell (WBC) count Ordered By: Bronson Bynum on 11-27-2024 WBC (Bld) [#/Vol] 4.6 10*3/uL 4.4-11.0 [facility] Internal Medicine Office Vis etelvina 09-16-2024 Internal Medicine Office Visit [facility] [address] [place] [address] [address] [place] [address] OFFICE VISIT Date of Service: 09/16/24 MR#: [id number] Acct: [id number] Name: DAVID HUBBARD Rep #: [id number] : 1945 Provider: Dr. Bronson murry MD Age/Sex: 79/F Location: [facility] Status: Signed Intake Vital Signs 06/17/24 14:30 [...] 3 M FU 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: 3m f/u Director Of Food And Nutrition Services Required: No Is patient in pain?: No Allergies Seasonal Allergies: Uncoded Allergy (Mild, Verified 09/16/24 13:27) nasal drainage Medications ???Medication ???Instructions ???Recorded ???Confirmed ???Type montelukast 5 mg chewable tablet 10 mg PO DAILY 06/29/18 09/16/24 H istory (Singulair) albuterol sulfate 90 mcg/actuation 2 puff inhalation Q6H PRN 09/16/24 History aerosol inhaler budesonide 160 mcg-glycopyr 9 2 inh inhalation BID 04/11/22 03/12/06 History mcg-formot 4.8 mcg/actuation HFA inhaler (Breztri [...] pain, limite (more content not included)... Normal [facility] Comprehensive Metabolic Prof ilon 06-17-2024 Albumin [Mass/Vol] 3.9 g/dL Normal 3.2-5.0 [facility] Comment on above: Performed By: #### L 500.2500 #### [facility] [address] [place], [address] Albumin/Globulin [Mass ratio] 1.0 {ratio} Normal 0.9-2.4 [facility] Comment on above: Performed By: #### L 500.2500 #### [facility] [address] [place], [address] ALK P 78 U/L Normal 45-117 [facility] Comment on above: Performed By: #### L 500.2500 #### [facility] [address] [place], [address] ALT [Catalytic activity/Vol] 25 U/L Normal 13-56 [facility] Comment on above: Performed By: #### L 500.2500 #### [facility] [address] [place], [address] AST [Catalytic activity/Vol] 20 U/L Normal 15-37 [facility] Comment on above: Performed By: #### L 500.2500 #### [facility] [address] [place], [address] Bilirubin [Mass/Vol] 0.30 mg/dL Normal 0.20-1.00 [facility] Comment on above: Result Comment: For patients on eltrombopag therapy, use of Dimension [place] TBIL is not recommended. Performed By: #### L 500.2500 #### [facility] [address] [place], [address] BUN/CRE 15.8 RATIO Normal 10-20 [facility] Comment on above: Performed By: #### L 500.2500 #### [facility] [address] [place], [address] CA,Total 9.6 mg/dL Normal 8.5-10.1 [facility] Comment on above: Performed By: #### L 500.2500 #### [facility] [address] [place], [address] Chloride [Moles/Vol] 104 mmol/L Normal 98-107 [facility] Comment on above: Performed By: #### L 500.2500 #### [facility] [address] [place], [address] CO2 [Moles/Vol] 29.0 mmol/L Normal 21.0-32.0 [facility] Comment on above: Performed By: #### L 500.2500 #### [facility] [address] [place], [address] Creatinine [Mass/Vol] 0.95 mg/dL Normal 0.55-1.02 [facility] Comment on above: Result Comment: The validity of the calculated GFR GFRAA in patients over 70 years has not been determined. Clinical correlation is essential. Performed By: #### L 500.2500 #### [facility] [address] [place], [address] EST GFR - AA 73 mL/min Normal >60 [facility] Comment on above: Result Comment: Afri can Vincentian GFR Calc Performed By: #### L 500.2500 #### [facility] [address] [place], [address] GAP 6 Normal 5-15 [facility] Comment on above: Performed By: #### L 500.2500 #### [facility] [address] [place], [address] GFR/1.73 sq M.predicted among non-blacks MDRD (S/P/Bld) [Vol rate/Area] 60 mL/min/{1.73_m2} Normal >60 [facility] Comment on above: Result Comment: Non- GFR Calc Performed By: #### L 500.2500 #### [facility] [address] [place], [address] Globulin (S) [Mass/Vol] 4.0 g/dL Normal 2.2-4.2 [facility] Comment on above: Performed By: #### L 500.2500 #### [facility] [address] [place], [address] Glucose [Mass/Vol] 97 mg/dL Normal 74-106 [facility] Comment on above: Performed By: #### L 500.2500 #### [facility] [address] [place], [address] Potassium [Moles/Vol] 4.2 mmol/L Normal 3.5-5.1 [facility] Comment on above: Performed By: #### L 500.2500 #### [facility] [address] [place], [address] Sodium [Moles/Vol] 140 mmol/L Normal 136-145 [facility] Comment on above: Performed By: #### L 500.2500 #### [facility] [address] [place], [address] T PROT 7.9 g/dL Normal 6.4-8.2 [facility] Comment on above: Performed By: #### L 500.2500 #### [facility] [address] [place], [address] Urea nitrogen [Mass/Vol] 15 mg/dL Normal 7-18 [facility] Comment on above: Performed By: #### L 500.2500 #### [facility] [address] [place], [address] Internal Medicine Office Vis iton 06-17-2024 Internal Medicine Office Visit [facility] [address] [place] [address] OFFICE VISIT Date of Service: 06/17/24 MR#: [id number] Acct: [id number] Name: DAVID HUBBARD Rep #: [id number] : 1945 Provider: Dr. Bronson murry MD Age/Sex: 78/F Location: [facility] Status: Signed Intake Vital Signs 03/11/24 13:26 [...] 3 M FU 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: 3m f/u Director Of Food And Nutrition Services Required: No Accompanied by: Self Is patient [...] No coug (more content not included)... Normal [facility] SCRN MAMM (CAD)W/MICH BILATo n 06-03-2024 SCRN MAMM (CAD)W/MICH BILAT [facility] Imaging Services [address] [place] [address] SCRN MAMM (CAD)W/MICH BILAT MR#: [id number] Acct: [id number] Name: DAVID HUBBARD Rep #: [id number] : 1945 F 78 From: Emory canseco MD PCP: Dr. Bronson Bynum MD Status: REG [facility] Study: SCRN MAMM (CAD)W/MICH BILAT Date of Exam: 05/16 Exam# [id number] Ordering Dr: Bronson Bynum MD [id number] MAMMOGRAPHY - BILATERAL SCREENING REASON FOR EXAM: [...] delay biopsy of a clinically suspicious abnormality. [id number] Electronically Signed: Emory Sheppard MD at 13:16 EST , CC: Dr. Bronson Bynum MD Loss Prevention Agent: Signed Normal [facility] .Auto Diffon 03-29-2024 Basophil, Absolute 0.0 10 3/mcL Normal 0.0-0.2 [facility] Comment on above: Performed By: #### A KARLENE, MG, BMP, MDW, GFR, TROPHS, CBC, ADIFF, PBNP #### [address] [address] Basophils/100 WBC (Bld) 0.9 % Normal 0.0-2.5 [facility] Comment on above: Performed By: #### A KARLENE, MG, BMP, MDW, GFR, TROPHS, CBC, ADIFF, PBNP #### [address] [address] Eosinophil, Absolute 0.4 10 3/mcL Normal 0.0-0.4 [facility] Comment on above: Performed By: #### A KARLENE, MG, BMP, MDW, GFR, TROPHS, CBC, ADIFF, PBNP #### [address] [address] Eosinophils/100 WBC (Bld) 7.4 % High 0.0-7.0 [facility] Comment on above: Performed By: #### A KARLENE, MG, BMP, MDW, GFR, TROPHS, CBC, ADIFF, PBNP #### [address] [address] Lymphocyte, Absolute 1.6 10 3/mcL Normal 0.8-3.9 [facility] Comment on above: Performed By: #### A KARLENE, MG, BMP, MDW, GFR, TROPHS, CBC, ADIFF, PBNP #### [address] [address] Lymphocytes/100 WBC (Bld) 28.9 % Normal 10.0-50.0 [facility] Comment on above: Performed By: #### A KARLENE, MG, BMP, MDW, GFR, TROPHS, CBC, ADIFF, PBNP #### [address] [address] Monocyte, Absolute 0.2 10 3/mcL Normal 0.2-1.0 [facility] Comment on above: Performed By: #### A KARLENE, MG, BMP, MDW, GFR, TROPHS, CBC, ADIFF, PBNP #### [address] [address] Monocytes/100 WBC (Bld) 3.5 % Normal 1.7-13.0 [facility] Comment on above: Performed By: #### A KARLENE, MG, BMP, MDW, GFR, TROPHS, CBC, ADIFF, PBNP #### [address] [address] Neutrophils/100 WBC (Bld) 59.3 % Normal 37.0-80.0 [facility] Comment on above: Performed By: #### A KARLENE, MG, BMP, MDW, GFR, TROPHS, CBC, ADIFF, PBNP #### [address] [address] .GFRon 03-29-2024 GFR 61 ml/min/1.73sqm Normal [facility] Comment on above: Result Comment: [...] MDW, GFR, TROPHS, CBC, ADIFF, PBNP #### [address] [address] GFR Non- 51 ml/min/1.73sqm Normal [facility] Comment on above: Result Comment: [...] MDW, GFR, TROPHS, CBC, ADIFF, PBNP #### [address] [address] .MDWon 03-29-2024 Monocyte Distribution Width 14.84 Normal 0.00-20.00 [facility] Comment on above: Result Comment: For ED adult patients suspected of sepsis, MDW<=20.0 does not rule out sepsis or risk of sepsis Performed By: #### A KARLENE, MG, BMP, MDW, GFR, TROPHS, CBC, ADIFF, PBNP #### [address] [address] .NEUABSon 03-29-2024 Neutrophil, Absolute 3.3 10 3/mcL Normal 2.9-6.2 [facility] Comment on above: Performed By: #### A KARLENE, MG, BMP, MDW, GFR, TROPHS, CBC, ADIFF, PBNP #### [address] [address] BMPon 03-29-2024 BUN/Creatinine Ratio 18 ratio Normal 7-27 [facility] Comment on above: Performed By: #### A KARLENE, MG, BMP, MDW, GFR, TROPHS, CBC, ADIFF, PBNP #### [address] [address] Calcium [Mass/Vol] 9.5 mg/dL Normal 8.4-10.2 [facility] Comment on above: Performed By: #### A KARLENE, MG, BMP, MDW, GFR, TROPHS, CBC, ADIFF, PBNP #### [address] [address] Chloride [Moles/Vol] 103 mmol/L Normal 98-107 [facility] Comment on above: Performed By: #### A KARLENE, MG, BMP, MDW, GFR, TROPHS, CBC, ADIFF, PBNP #### [address] [address] CO2 [Moles/Vol] 31 mmol/L Normal 23-31 [facility] Comment on above: Performed By: #### A KARLENE, MG, BMP, MDW, GFR, TROPHS, CBC, ADIFF, PBNP #### [address] [address] Creatinine [Mass/Vol] 1.05 mg/dL High 0.55-1.02 [facility] Comment on above: Result Comment: Test ing performed on Siemens Dimension EXL analyzer using a modified kinetic Krystal technique. Performed By: #### A KARLENE, MG, BMP, MDW, GFR, TROPHS, CBC, ADIFF, PBNP #### [address] [address] Electrolyte Balance 4.0 mEq/L Normal 4.0-15.0 [facility] Comment on above: Performed By: #### A KARLENE, MG, BMP, MDW, GFR, TROPHS, CBC, ADIFF, PBNP #### [address] [address] Glucose [Mass/Vol] 108 mg/dL Normal 83-110 [facility] Comment on above: Performed By: #### A KARLENE, MG, BMP, MDW, GFR, TROPHS, CBC, ADIFF, PBNP #### [address] [address] Potassium [Moles/Vol] 3.5 mmol/L Normal 3.5-5.1 [facility] Comment on above: Performed By: #### A KARLENE, MG, BMP, MDW, GFR, TROPHS, CBC, ADIFF, PBNP #### [address] [address] Sodium [Moles/Vol] 138 mmol/L Normal 136-145 [facility] Comment on above: Performed By: #### A KARLENE, MG, BMP, MDW, GFR, TROPHS, CBC, ADIFF, PBNP #### [address] [address] Urea nitrogen [Mass/Vol] 19 mg/dL High 7-18 [facility] Comment on above: Performed By: #### A KARLENE, MG, BMP, MDW, GFR, TROPHS, CBC, ADIFF, PBNP #### [address] [address] CBCon 03-29-2024 Erythrocyte distribution width (RBC) [Ratio] 13.5 % Normal 11.5-14.5 [facility] Comment on above: Performed By: #### A KARLENE, MG, BMP, MDW, GFR, TROPHS, CBC, ADIFF, PBNP #### [address] [address] Hematocrit (Bld) [Volume fraction] 37.7 % Normal 37.0-47.0 [facility] Comment on above: Performed By: #### A KARLENE, MG, BMP, MDW, GFR, TROPHS, CBC, ADIFF, PBNP #### [address] [address] Hgb 12.8 G/dL Normal 12.0-16.0 [facility] Comment on above: Performed By: #### A KARLENE, MG, BMP, MDW, GFR, TROPHS, CBC, ADIFF, PBNP #### [address] [address] MCH (RBC) [Entitic mass] 30.7 pg Normal 27.0-31.2 [facility] Comment on above: Performed By: #### A KARLENE, MG, BMP, MDW, GFR, TROPHS, CBC, ADIFF, PBNP #### [address] [address] MCHC 33.9 G/dL Normal 33.0-37.0 [facility] Comment on above: Performed By: #### A KARLENE, MG, BMP, MDW, GFR, TROPHS, CBC, ADIFF, PBNP #### [address] [address] MCV (RBC) [Entitic vol] 90.5 fL Normal 80.0-94.0 [facility] Comment on above: Performed By: #### A KARLENE, MG, BMP, MDW, GFR, TROPHS, CBC, ADIFF, PBNP #### [address] [address] Platelet 244 10 3/mcL Normal 130-400 [facility] Comment on above: Performed By: #### A KARLENE, MG, BMP, MDW, GFR, TROPHS, CBC, ADIFF, PBNP #### [address] [address] Platelet mean volume (Bld) [Entitic vol] 8.3 fL Normal 7.4-10.4 [facility] Comment on above: Performed By: #### A KARLENE, MG, BMP, MDW, GFR, TROPHS, CBC, ADIFF, PBNP #### [address] [address] RBC 4.16 10 6/mcL Low 4.20-5.40 [facility] Comment on above: Performed By: #### A KARLENE, MG, BMP, MDW, GFR, TROPHS, CBC, ADIFF, PBNP #### [address] [address] WBC 5.6 10 3/mcL Normal 4.6-10.8 [facility] Comment on above: Performed By: #### A KARLENE, MG, BMP, MDW, GFR, TROPHS, CBC, ADIFF, PBNP #### [address] [address] LABORATORYOrdered By: SYSTEM SYSTEM on 03-29-2024 Troponin I.cardiac DL <= 0.01 ng/mL [Mass/Vol] 7 ng/L Normal 0 - 51 ng/L AO ADM SS Comment on above: Interpretive Data: H igh Sensitive Troponin I Reference Ranges: Female: 0-51 ng/L Male: 0-76 ng/L Testing performed on Neuralieve using a homogeneous sandwich chemiluminescent immunoassay based on [employer] technology. Basophils (Bld) [#/Vol] 0.0 103/mcL Normal [...] (Bld) [#/Vol] 4.16 106/mcL Low 4.20 - 5.40 10^6/mcL AO Workflow SS Sodium [Moles/Vol] 138 mmol/L Normal 136 - 145 mmol/L AO ADM SS Troponin I.cardiac DL <= 0.01 ng/mL [Mass/Vol] 7 ng/L Normal 0 - 51 ng/L AO ADM SS Comment on above: Interpretive Data: H igh Sensitive Troponin I Reference Ranges: Female: 0-51 ng/L Male: 0-76 ng/L Testing performed on [employer]ieve using a homogeneous sandwich chemiluminescent immunoassay based on [employer] technology. Urea nitrogen [Mass/Vol] 19 mg/dL High 7 - 18 mg/dL AO ADM SS Urea nitrogen/Creatinine [Mass ratio] 18 ratio Normal 7 - 27 ratio AO ADM SS WBC (Bld) [#/Vol] 5.6 103/mcL Normal 4.6 - 10.8 10^3/mcL AO Workflow SS MGon 03-29-2024 Magnesium [Mass/Vol] 1.9 mg/dL Normal 1.8-2.4 [facility] Comment on above: Performed By: #### A KARLENE, MG, BMP, MDW, GFR, TROPHS, CBC, ADIFF, PBNP #### [address] [address] PBNPon 03-29-2024 Natriuretic peptide B (Bld) [Mass/Vol] 67 pg/mL Normal 0-450 [facility] Comment on above: Result Comment: NT-p roBNP results of less than 300 pg/mL effectively rules out acute congestive heart failure with 99% negative predictive value. Performed By: #### A KARLENE, MG, BMP, MDW, GFR, TROPHS, CBC, ADIFF, PBNP #### [address] [address] TROPHSon 03-29-2024 High Sensitivity Troponin I 7 ng/L Normal 0-51 [facility] Comment on above: Order Comment: Send repeat troponin at 230 Result Comment: High Sensitive Troponin I Reference Ranges: Female: 0-51 ng/L Male: 0-76 ng/L Testing performed on Dimension GoYoDeo using a homogeneous sandwich chemiluminescent immunoassay based on [employer] technology. Performed By: #### T [facility] #### [place] [id number] High Sensitivity Troponin I 7 ng/L Normal 0-51 [facility] Comment on above: Result Comment: High Sensitive Troponin I Reference Ranges: Female: 0-51 ng/L Male: 0-76 ng/L Testing performed on Dimension EXL using a homogeneous sandwich chemiluminescent immunoassay based on [employer] technology. Performed By: #### A KARLENE, MG, BMP, MDW, GFR, TROPHS, CBC, ADIFF, PBNP #### [address] [address] XR CHEST 1 VIEWon 03-29-2024 XR CHEST [...] Date: 03/29/2024 2:28:06 PM Ordering Provider: PARVEZ JEREZ [facility] .GFRon 01-09-2024 GFR 65 ml/min/1.73sqm [facility] ([place]) Comment on above: Result Comment: GFR Population [...] ORPH, CBC, BMP, MDW, DIFF, GFR #### [address] [address] GFR Non- 54 ml/min/1.73sqm Normal [facility] ([place]) Comment on above: Result Comment: GFR Population [...] ORPH, CBC, BMP, MDW, DIFF, GFR #### [place] [address] .MDWon 01-09-2024 Monocyte Distribution Width 22.23 High 0.00-20.00 [facility] ([place]) Comment on above: Result Comment: For adults in ED, MDW>20.0 may be associated with a higher risk of sepsis during the first 12hrs of hospital admission Performed By: #### M ORPH, CBC, BMP, MDW, DIFF, GFR #### [place] [address] .Manual Diffon 01-09-2024 Bands 4.0 % Normal 0.0-5.0 [facility] ([place]) Comment on above: Performed By: #### M ORPH, CBC, BMP, MDW, DIFF, GFR #### [place] [address] Basophil %, Manual 0.0 % Normal 0.0-2.5 [facility] ([place]) Comment on above: Performed By: #### M ORPH, CBC, BMP, MDW, DIFF, GFR #### [place] [address] Basophil, Abs Manual 0.0 10 3/mcL Normal 0.0-0.2 [facility] ([place]) Comment on above: Performed By: #### M ORPH, CBC, BMP, MDW, DIFF, GFR #### [place] [address] Eosinophil %, Manual 0.0 % Normal 0.0-7.0 [facility] ([place]) Comment on above: Performed By: #### M ORPH, CBC, BMP, MDW, DIFF, GFR #### [place] [address] Eosinophil, Abs Manual 0.0 10 3/mcL Normal 0.0-0.4 [facility] ([place] Comment on above: Performed By: #### M ORPH, CBC, BMP, MDW, DIFF, GFR #### [address] [address] Lymphocyte %, Manual 32.0 % Normal 10.0-50.0 [facility] ([place]) Comment on above: Performed By: #### M ORPH, CBC, BMP, MDW, DIFF, GFR #### [address] [address] Lymphocyte, Abs Manual 0.8 10 3/mcL Normal 0.8-3.9 [facility] ([place]) Comment on above: Performed By: #### M ORPH, CBC, BMP, MDW, DIFF, GFR #### [address] [address] Monocyte %, Manual 0.0 % Low 1.7-13.0 [facility] ([place]) Comment on above: Performed By: #### M ORPH, CBC, BMP, MDW, DIFF, GFR #### [address] [address] Monocyte, Abs Manual 0.0 10 3/mcL Low 0.2-1.0 [facility] ([place]) Comment on above: Performed By: #### M ORPH, CBC, BMP, MDW, DIFF, GFR #### [address] [address] Neutrophil %, Manual 64.0 % Normal 37.0-80.0 [facility] ([place]) Comment on above: Performed By: #### M ORPH, CBC, BMP, MDW, DIFF, GFR #### [address] [address] Neutrophil, Abs Manual 1.7 10 3/mcL Low 2.9-6.2 [facility] ([place]) Comment on above: Performed By: #### M ORPH, CBC, BMP, MDW, DIFF, GFR #### [address] [address] Nucleated RBC 0.0 /100 WBC Normal [facility] ([place]) Comment on above: Performed By: #### M ORPH, CBC, BMP, MDW, DIFF, GFR #### [address] [address] .Morphon 01-09-2024 Platelet Estimate Normal Normal [facility]) Comment on above: Performed By: #### M ORPH, CBC, BMP, MDW, DIFF, GFR #### [address] [address] .Urinalysis Microscopic (AO) on 01-09-2024 UA Mucous 1+ /hpf Normal [facility] ([place]) Comment on above: Performed By: #### U AMICAO, UA #### [address] [address] UA RBC 10-15 Abnormal None Seen [facility] ([place]) Comment on above: Performed By: #### U AMICAO, UA #### [address] [address] UA Squam Epithelial 0-5 Abnormal None Seen [facility] ([place]) Comment on above: Performed By: #### U AMICAO, UA #### [address] [address] UA WBC 15-25 Abnormal None Seen [facility] ([place]) Comment on above: Performed By: #### U AMICAO, UA #### [address] [address] BMPon 01-09-2024 BUN/Creatinine Ratio 17 ratio Normal - [facility] ([place]) Comment on above: Performed By: #### M ORPH, CBC, BMP, MDW, DIFF, GFR #### [address] [address] Calcium [Mass/Vol] 8.2 mg/dL Low 8.4-10.2 [facility] ([place]) Comment on above: Performed By: #### M ORPH, CBC, BMP, MDW, DIFF, GFR #### [address] [address] Chloride [Moles/Vol] 100 mmol/L Normal 98-107 [facility] ([place]) Comment on above: Performed By: #### M ORPH, CBC, BMP, MDW, DIFF, GFR #### [address] [address] CO2 [Moles/Vol] 29 mmol/L Normal 23-31 [facility] ([place]) Comment on above: Performed By: #### M ORPH, CBC, BMP, MDW, DIFF, GFR #### [address] [address] Creatinine [Mass/Vol] 1.00 mg/dL Normal 0.55-1.02 [facility] ([place]) Comment on above: Performed By: #### M ORPH, CBC, BMP, MDW, DIFF, GFR #### [address] [address] Electrolyte Balance 8.0 mEq/L Normal 4.0-15.0 [facility] ([place]) Comment on above: Performed By: #### M ORPH, CBC, BMP, MDW, DIFF, GFR #### [address] [address] Glucose [Mass/Vol] 98 mg/dL Normal 83-110 [facility] ([place]) Comment on above: Performed By: #### M ORPH, CBC, BMP, MDW, DIFF, GFR #### [address] [address] Potassium [Moles/Vol] 3.5 mmol/L Normal 3.5-5.1 [facility] ([place]) Comment on above: Performed By: #### M ORPH, CBC, BMP, MDW, DIFF, GFR #### [address] [address] Sodium [Moles/Vol] 137 mmol/L Normal 136-145 [facility] ([place]) Comment on above: Performed By: #### M ORPH, CBC, BMP, MDW, DIFF, GFR #### [address] [address] Urea nitrogen [Mass/Vol] 17 mg/dL Normal 7-18 [facility] ([place] Comment on above: Performed By: #### M ORPH, CBC, BMP, MDW, DIFF, GFR #### [address] [address] CBCon 01-09-2024 Erythrocyte distribution width (RBC) [Ratio] 13.6 % Normal 11.5-14.5 [facility] ([place] Comment on above: Performed By: #### M ORPH, CBC, BMP, MDW, DIFF, GFR #### [place] [address] Hematocrit (Bld) [Volume fraction] 33.6 % Low 37.0-47.0 [facility] ([place] Comment on above: Performed By: #### M ORPH, CBC, BMP, MDW, DIFF, GFR #### [place] [address] Hgb 11.7 G/dL Low 12.0-16.0 [facility] ([place] Comment on above: Performed By: #### M ORPH, CBC, BMP, MDW, DIFF, GFR #### [address] [address] MCH (RBC) [Entitic mass] 31.4 pg High 27.0-31.2 [facility] ([place] Comment on above: Performed By: #### M ORPH, CBC, BMP, MDW, DIFF, GFR #### [place] [address] MCHC 34.9 G/dL Normal 33.0-37.0 [facility] ([place] Comment on above: Performed By: #### M ORPH, CBC, BMP, MDW, DIFF, GFR #### [place] [address] MCV (RBC) [Entitic vol] 90.1 fL Normal 80.0-94.0 [facility] ([place] Comment on above: Performed By: #### M ORPH, CBC, BMP, MDW, DIFF, GFR #### [place] [address] Platelet 158 10 3/mcL Normal 130-400 [facility] ([place]) Comment on above: Performed By: #### M ORPH, CBC, BMP, MDW, DIFF, GFR #### [address] [address] Platelet mean volume (Bld) [Entitic vol] 7.7 fL Normal 7.4-10.4 [facility] ([place]) Comment on above: Performed By: #### M ORPH, CBC, BMP, MDW, DIFF, GFR #### [address] [address] RBC 3.73 10 6/mcL Low 4.20-5.40 [facility] ([place]) Comment on above: Performed By: #### M ORPH, CBC, BMP, MDW, DIFF, GFR #### [address] [address] WBC 2.5 10 3/mcL Low 4.6-10.8 [facility] ([place]) Comment on above: Performed By: #### M ORPH, CBC, BMP, MDW, DIFF, GFR #### [address] [address] [address] HEAD OR BRAIN W/O CONTRAS Ton [...] 01/09/2024 2:11:06 PM Ordering Provider: CESAR Garcia [facility] ([place]) LABORATORYOrdered By: Eladio duran on 01-09-2024 Appearance [...] Spec Grav 1.025 (01/09/24 1:27 PM) Normal 1.015-1.02 5 AO Auto Urine SS UA Specimen Type [...] Normal 0.0 - 5.0 % AO Workflow SS Basophil %, Manual 0.0 % Normal 0.0 - 2.5 % AO Workflow SS Basophil, Abs Manual 0.0 103/mcL Normal [...] %, Manual 0.0 % Normal 0.0 - 7 .0 % AO Workflow SS Eosinophils (Bld) [#/Vol] [...] (Bld) [#/Vol] 3.73 106/mcL Low 4.20 - 5.40 10^6/mcL AO Workflow SS Sodium [Moles/Vol] 137 mmol/L Normal 136 - 145 mmol/L AO ADM SS Urea nitrogen [Mass/Vol] 17 mg/dL Normal 7 - 18 mg/dL AO ADM SS Urea nitrogen/Creatinine [Mass ratio] 17 ratio Normal 7 - 27 ratio AO ADM SS WBC (Bld) [#/Vol] 2.5 103/mcL Low 4.6 - 10.8 10^3/mcL AO Workflow SS UAon 01-09-2024 Color (U) Yellow Normal [facility] ([place]) Comment on above: Performed By: #### U AMICAO, UA #### [address] [address] Glucose (U) [Mass/Vol] Negative Normal Negative [facility] ([place]) Comment on above: Performed By: #### U AMICAO, UA #### [address] [address] Ketones Ql (U) Negative Normal Negative [facility] ([place]) Comment on above: Performed By: #### U AMICAO, UA #### [address] [address] UA Appear Slightly Cloudy Abnormal Clear [facility] ([place]) Comment on above: Performed By: #### U AMICAO, UA #### [address] [address] UA Blood Moderate Abnormal Negative [facility] ([place]) Comment on above: Performed By: #### U AMICAO, UA #### [address] [address] UA Leuk Est Small Abnormal Negative [facility] ([place]) Comment on above: Performed By: #### U AMICAO, UA #### [address] [address] UA Nitrite Negative Normal Negative [facility] ([place]) Comment on above: Performed By: #### U AMICAO, UA #### [address] [address] UA pH 6.0 Normal 5.0 - 8.0 [facility] ([place]) Comment on above: Performed By: #### U AMICAO, UA #### [address] [address] UA Protein 30 mg/dL Normal Negative [facility] ([place]) Comment on above: Performed By: #### U AMICAO, UA #### [address] [address] UA Spec Grav 1.025 Normal 1.015-1.02 5 [facility] ([place]) Comment on above: Performed By: #### U AMICAO, UA #### [address] [address] UA Specimen Type Clean Catch Normal [facility] ([place]) Comment on above: Performed By: #### U AMICAO, UA #### [address] [address] UA Urobilinogen 2.0 E.U./dL Abnormal 0.2-1.0 [facility] ([place]) Comment on above: Performed By: #### U AMICAO, UA #### [address] [address] Urobilinogen (U) [Mass/Vol] Negative Normal Negative [facility] ([place]) Comment on above: Performed By: #### U AMICAO, UA #### [address] [address] Absolute lymphocyte countOrd ered By: Bronson Bynum on 08-28-2023 Lymphocytes Auto (Unsp spec) [#/Vol] 1.89 10*3/uL 0.83-4.51 [facility] Automated lymphocyte count a s percentage of total leukocytesOrdered By: Bronson Bynum on 08-28-2023 Lymphocytes/100 WBC Auto (Unsp spec) 40.6 % 19-41 [facility] Basophil percentageOrdered B y: Bronson Bynum on 08-28-2023 Basophils/100 WBC (Bld) 0.6 % 0-1 [facility] Chloride [Moles/Vol] 106 mmol/L 98-107 [facility] Cholesterol [Mass/Vol] 202 mg/dL <200 [facility] Comment on above: <200 mg/dL Desirable 200-240 mg/dL Borderline >240 mg/dL High Risk Eosinophils/100 WBC (Bld) 8.8 % 0-5 [facility] Glucose [Mass/Vol] 85 mg/dL 74-106 [facility] Hemoglobin (Bld) [Mass/Vol] 11.8 g/dL 12.0-15.0 [facility] Monocytes/100 WBC (Bld) 5.8 % 0-10 [facility] Neutrophils (Bld) [#/Vol] 2.1 10*3/uL 2.0-7.7 [facility] Neutrophils/100 WBC (Bld) 44.0 % 47-70 [facility] Potassium [Moles/Vol] 3.8 mmol/L 3.5-5.1 [facility] Sodium [Moles/Vol] 138 mmol/L 136-145 [facility] Triglyceride [Mass/Vol] 52 mg/dL <199 [facility] Comment on above: The drugs N-Acetylcy steine and Metamizole may falsely depress this assay.Serum Triglycerides Reference Interval Normal <150 mg/dL Borderline high 150 - 199 mg/dL High 200 - 499 mg/dL Very High > or = 500 mg/dL WBC (Bld) [#/Vol] 4.7 10*3/uL 4.4-11.0 [facility] Determination of erythrocyte mean corpuscular volume (MCV)Ordered By: Bronson Bynum on 08-28-2023 MCV (RBC) [Entitic vol] 92.1 fL 81-99 [facility] Erythrocyte distribution wid th ratioOrdered By: Bronson Bynum on 08-28-2023 Erythrocyte distribution width (RBC) [Ratio] 12.5 % 11.6-14.6 [facility] Erythrocyte distribution wid th standard deviationOrdered By: Bronson Bynum on 08-28-2023 Erythrocyte distribution width (RBC) [Entitic vol] 42.1 fL 35.1-43.9 [facility] Hematocrit Auto (Bld) [Volum e fraction]Ordered By: Bronson Bynum on 08-28-2023 Hematocrit (Bld) [Volume fraction] 36.1 % 37-47 [facility] Immature granulocytes/100 WB C Auto (Bld)Ordered By: Bronson Bynum on 08-28-2023 Immature granulocytes/100 WBC (Bld) 0.200 % 0.0-0.9 [facility] Comment on above: IG% - Immature Granu locytes (promyelocytes, myelocytes and metamyelocytes) > 1% indicates that a LEFT SHIFT is Present. Laboratory - Chemistry and C hemistry - challengeOrdered By: Bronson Bynum on 08-28-2023 Cholesterol in HDL [Mass/Vol] 93 mg/dL >40 [facility] Comment on above: The drugs N-Acetylcy steine and Metamizole may falsely depress this assay. Reference Range HDL <40 mg/dL Low HDL Cholesterol HDL >or= 60 mg/dL High HDL Cholesterol Cholesterol in LDL [Mass/Vol] 99 mg/dL 0-130 [facility] CO2 [Moles/Vol] 28.0 mmol/L 21.0-32.0 [facility] Urea nitrogen/Creatinine [Mass ratio] 21.6 mg/mg 10-20 [facility] Laboratory - Hematology and Cell countsOrdered By: Bronson Bynum on 08-28-2023 MCH (RBC) [Entitic mass] 30.1 pg 27.0-32.0 [facility] MCHC (RBC) [Mass/Vol] 32.7 g/dL 32-36 [facility] Nucleated RBC/100 WBC (Bld) [Ratio] 0 % 0-5 [facility] Platelet mean volume (Bld) [Entitic vol] 10.4 fL 6.2-12.0 [facility] Platelets (Bld) [#/Vol] 224 10*3/uL 150-450 [facility] No Panel InformationOrdered By: Bronson Bynum on 08-28-2023 Estimated GFR (MDRD) Amer 67 mL/min >60 [facility] Comment on above: GFR Calc Estimated GFR (MDRD) Non-Af Amer 56 mL/min >60 [facility] Comment on above: Non- GFR Calc VLDL Cholesterol 10 mg/dL 5-40 [facility] RBC Auto (Bld) [#/Vol]Ordere d By: Bronson Bynum on 08-28-2023 RBC (Bld) [#/Vol] 3.92 10*6/uL 4.2-5.4 [facility] Serum or plasma calcium juan ramon urement (mass/volume)Ordered By: Bronson Bynum on 08-28-2023 Calcium [Mass/Vol] 9.4 mg/dL 8.5-10.1 [facility] Serum or plasma creatinine m easurement (mass/volume)Ordered By: Bronson Bynum on 08-28-2023 Creatinine [Mass/Vol] 1.02 mg/dL 0.55-1.02 [facility] Comment on above: The validity of the calculated GFR & GFRAA in patients over 70 years has not been determined. Clinical correlation is essential. Serum or plasma urea nitroge n measurement (mass/volume)Ordered By: Bronson Bynum on 08-28-2023 Urea nitrogen [Mass/Vol] 22 mg/dL 7-18 [facility] Thin prep Papanicolaou smear with manual screeningOrdered By: Bronson Bynum on 08-28-2023 Thin prep Papanicolaou smear with manual screening 4 5-15 [facility] Final Surgical Pathology Rep [facility] 04-24-2023 Final Surgical Pathology Report . Pathology Reports Accession: Collected Date/Time: Received Date/Time: Pathologist: [id number] 04/22/2023 10:14 EDT 04/23/2023 09:41 EDT SPIKE MATHEW MD Final Surgical Pathology Report DIAGNOSIS: TRANSVERSE COLON POLYP: - TUBULAR ADENOMA CLINICAL INFORMATION: Procedure: COLONOSCOPY WITH POLYPECTOMY Preoperative diagnosis: SCREENING Postoperative diagnosis: SAME SPECIMEN: A TRANSVERSE COLON POLYP GROSS DESCRIPTION: All parts labelled with patient name and [id number] Received in formalin labeled transverse colon polyp is 1 velasco tissue fragment measuring 0.3 cm. TS-1 Natalia Rea, Grossing Office Spec/ Dr. Isaias Lim, Pathologist Dictated by Natalia Rea MICROSCOPIC DESCRIPTION: The microscopic examination is performed, except in the case of Gross Only. Electronically Signed by Pathology Report verified by [facility] SPIKE MATHEW Sign out Date: 04/24/2023 11:05 Performing Lab: [facility], [facility] [place] [place] [address] Pathology Dept Disclaimer If ancillary studies were utilized, the following Laboratory Developed Test (LDT) disclaimer will apply: Under CLIA requirements, [facility] is qualified to perform high complexity testing. For all ancillary stains, positive and negative controls stain appropriately. Performance characteristics of immunohistochemical and chromogenic in-situ hybridization tests have been determined by [facility]. These tests are used for clinical purposes, They should not be regarded as investigational or for research. Normal [facility] ([place]) Absolute lymphocyte countOrd ered By: Dr. Bynum on 11-21-2022 Lymphocytes Auto (Unsp spec) [#/Vol] 1.35 10*3/uL 0.83-4.51 [facility] Basophil percentageOrdered B y: Dr. Bynum on 11-21-2022 Basophils/100 WBC (Bld) 1.3 % 0-1 [facility] Bilirubin [Mass/Vol] 0.50 mg/dL 0.20-1.00 [facility] Comment on above: For patients on eltr ombopag therapy, use of Dimension [place] TBIL is not recommended. Chloride [Moles/Vol] 108 mmol/L 98-107 [facility] Eosinophils/100 WBC (Bld) 9.9 % 0-5 [facility] Glucose [Mass/Vol] 96 mg/dL 74-106 [facility] Neutrophils (Bld) [#/Vol] 1.7 10*3/uL 2.0-7.7 [facility] Neutrophils/100 WBC (Bld) 44.5 % 47-70 [facility] Potassium [Moles/Vol] 4.3 mmol/L 3.5-5.1 [facility] Protein [Mass/Vol] 7.7 g/dL 6.4-8.2 [facility] Sodium [Moles/Vol] 141 mmol/L 136-145 [facility] WBC (Bld) [#/Vol] 3.7 10*3/uL 4.4-11.0 [facility] Blood erythrocytes count (nu mber/volume)Ordered By: Dr. Bynum on 11-21-2022 RBC (Bld) [#/Vol] 3.90 10*6/uL 4.2-5.4 [facility] Blood hemoglobin measurement (mass/volume)Ordered By: Dr. Bynum on 11-21-2022 Hemoglobin (Bld) [Mass/Vol] 11.8 g/dL 12.0-15.0 [facility] Blood lymphocytes/100 leukoc ytesOrdered By: Dr. Bynum on 11-21-2022 Lymphocytes/100 WBC (Bld) 36.2 % 19-41 [facility] Blood monocytes/100 leukocyt esOrdered By: Dr. Bynum on 11-21-2022 Monocytes/100 WBC (Bld) 7.8 % 0-10 [facility] Blood platelet mean volumeOr dered By: Dr. Bynum on 11-21-2022 Platelet mean volume (Bld) [Entitic vol] 10.8 fL 6.2-12.0 [facility] Determination of erythrocyte mean corpuscular volume (MCV)Ordered By: Dr. Bynum on 11-21-2022 MCV (RBC) [Entitic vol] 92.8 fL 81-99 [facility] Hematocrit Auto (Bld) [Volum e fraction]Ordered By: Dr. Bynum on 11-21-2022 Hematocrit (Bld) [Volume fraction] 36.2 % 37-47 [facility] Laboratory - Chemistry and C hemistry - challengeOrdered By: Dr. Bynum on 11-21-2022 ALP [Catalytic activity/Vol] 83 U/L 45-117 [facility] ALT [Catalytic activity/Vol] 26 U/L 13-56 [facility] CO2 [Moles/Vol] 29.0 mmol/L 21.0-32.0 [facility] Globulin (S) [Mass/Vol] 3.9 g/dL 2.2-4.2 [facility] Urea nitrogen/Creatinine [Mass ratio] 24.7 mg/mg 10-20 [facility] Laboratory - Hematology and Cell countsOrdered By: Dr. Bynum on 11-21-2022 Erythrocyte distribution width (RBC) [Entitic vol] 43.4 fL 35.1-43.9 [facility] Erythrocyte distribution width (RBC) [Ratio] 12.8 % 11.6-14.6 [facility] Immature granulocytes/100 WBC (Bld) 0.300 % 0.0-0.9 [facility] Comment on above: IG% - Immature Granu locytes (promyelocytes, myelocytes and metamyelocytes) > 1% indicates that a LEFT SHIFT is Present. MCH (RBC) [Entitic mass] 30.3 pg 27.0-32.0 [facility] Nucleated RBC/100 WBC (Bld) [Ratio] 0 % 0-5 [facility] MCHC Auto (RBC) [Mass/Vol]Or dered By: Dr. Bynum on 11-21-2022 MCHC (RBC) [Mass/Vol] 32.6 g/dL 32-36 [facility] No Panel InformationOrdered By: Dr. Bynum on 11-21-2022 Estimated GFR (MDRD) Amer 72 mL/min >60 [facility] Comment on above: GFR Calc Estimated GFR (MDRD) Non-Af Amer 59 mL/min >60 [facility] Comment on above: Non- GFR Calc Platelets bldOrdered By: Dr. Bynum on 11-21-2022 Platelets (Bld) [#/Vol] 212 10*3/uL 150-450 [facility] Serum or plasma albumin juan ramon urement (mass/volume)Ordered By: Dr. Bynum on 11-21-2022 Albumin [Mass/Vol] 3.8 g/dL 3.2-5.0 [facility] Serum or plasma albumin/glob ulin mass ratioOrdered By: Dr. Bynum on 11-21-2022 Albumin/Globulin [Mass ratio] 1.0 {ratio} 0.9-2.4 [facility] Serum or plasma calcium juan ramon urement (mass/volume)Ordered By: Dr. Bynum on 11-21-2022 Calcium [Mass/Vol] 9.6 mg/dL 8.5-10.1 [facility] Serum or plasma creatinine m easurement (mass/volume)Ordered By: Dr. Bynum on 11-21-2022 Creatinine [Mass/Vol] 0.97 mg/dL 0.55-1.02 [facility] Comment on above: The validity of the calculated GFR & GFRAA in patients over 70 years has not been determined. Clinical correlation is essential. Serum or plasma urea nitroge n measurement (mass/volume)Ordered By: Dr. Bynum on 11-21-2022 Urea nitrogen [Mass/Vol] 24 mg/dL 7-18 [facility] Thin prep Papanicolaou smear with manual screeningOrdered By: Dr. Bynum on 11-21-2022 Thin prep Papanicolaou smear with manual screening 22 U/L 15 [facility] Thin prep Papanicolaou smear with manual screening 4 5-15 [facility] CALCIFEDIOL ([id number])Ordered B y: Coil Maker on 02-27-2022 25-hydroxyvitamin D [Mass/Vol] 52.7 ng/mL Normal 30.0-100.0 [facility]; [facility] Work Phone: CBC, Platelets & Auto Diff ( [id number])Ordered By: Coil Maker on 02-27-2022 Basophils (Bld) [#/Vol] 0.0 10*3/uL [...] MCHC (RBC) [Mass/Vol] 33.2 g/dL Normal 31.5-35.7 [facility] prehensive Internal Medicine; [facility] Work [...] (Bld) 45 % Normal [facility]; [facility] Work Phone: Platelets (Bld) [#/Vol] 212 10*3/uL Normal 150-450 [facility]; [facility] Work Phone: RBC (Bld) [#/Vol] 4.13 10*6/uL Normal 3.77-5.28 [facility]; [facility] Work Phone: WBC (Bld) [#/Vol] 3.4 10*3/uL Normal 3.4-10.8 [facility]; [facility] Work Phone: Metabolic Panel, Comprehensi ve ([id number])Ordered By: Coil Maker on 02-27-2022 Albumin [Mass/Vol] 4.4 g/dL Normal 3.7-4.7 [facility]; [facility] Work Phone: Albumin/Globulin [Mass ratio] 1.7 {ratio} Normal 1.2-2.2 [facility]; [facility] Work Phone: ALP [Catalytic activity/Vol] 74 U/L Normal 44-121 [facility]; [facility] Work Phone: ALT [Catalytic activity/Vol] 16 U/L Normal 0-32 [facility]; [facility] Work Phone: AST [Catalytic activity/Vol] 26 U/L Normal 0-40 [facility]; [facility] Work Phone: Bilirubin [Mass/Vol] 0.3 mg/dL Normal 0.0-1.2 [facility]; [facility] Work Phone: Calcium [Mass/Vol] 9.6 mg/dL Normal 8.7-10.3 [facility]; [facility] Work Phone: Chloride [Moles/Vol] 105 mmol/L Normal 96-106 [facility]; [facility] Work Phone: CO2 [Moles/Vol] 25 mmol/L Normal 20-29 [facility] Internal [facility]; [facility] Work Phone: Creatinine [Mass/Vol] 0.92 mg/dL Normal 0.57-1.00 [facility] Internal Medicine; [facility] Work Phone: Globulin (S) [Mass/Vol] 2.6 g/dL Normal 1.5-4.5 [facility]; [facility] Work Phone: Glucose [Mass/Vol] 95 mg/dL Normal 65-99 [facility]; [facility] Work Phone: Potassium [Moles/Vol] 5.0 mmol/L Normal 3.5-5.2 [facility] pre[facility]ive [facility]; [facility] Work Phone: Protein [Mass/Vol] 7.0 g/dL Normal 6.0-8.5 [facility]; [facility] Work Phone: Sodium [Moles/Vol] 142 mmol/L Normal 134-144 [facility]; [facility] Work Phone: Urea nitrogen [Mass/Vol] 19 mg/dL Normal 8-27 [facility]; [facility] Work Phone: Urea nitrogen/Creatinine [Mass ratio] 21 mg/mg Normal 12-28 [facility]; [facility] Work Phone: Metabolic Panel, Comprehensive ([id number]) 65 mL/min/1.73 Normal [facility]; [facility] Work Phone: INHOUSE COVID 19 (ONLY) RAPI D (93078)Ordered By: Tammy Toth on 11-08-2021 INHOUSE COVID 19 (ONLY) RAPID (15361) Positive Normal Com[facility]; [facility] Work Phone: CALCIFEDIOL ([id number])Ordered B y: Coil Maker on 09-01-2021 25-hydroxyvitamin D [Mass/Vol] 55.8 ng/mL Normal 30.0-100.0 [facility]; [facility] Work Phone: CBC, Platelets & Auto Diff ( [id number])Ordered By: Coil Maker on 09-01-2021 Basophils (Bld) [#/Vol] 0.0 10*3/uL [...] MCHC (RBC) [Mass/Vol] 33.3 g/dL Normal 31.5-35.7 [facility] prehensive [facility]; [facility] Work [...] RBC (Bld) [#/Vol] 3.91 10*6/uL Normal 3.77-5.28 [facility]; [facility] Work Phone: WBC (Bld) [#/Vol] 5.5 10*3/uL Normal 3.4-10.8 [facility]; [facility] Work Phone: Lipid Panel ([id number])Ordered B y: Coil Maker on 09-01-2021 Cholesterol [Mass/Vol] 206 mg/dL Abnormal 100-199 [facility]; [facility] Work Phone: Cholesterol in HDL [Mass/Vol] 87 mg/dL Normal [facility]; [facility] Work Phone: Triglyceride [Mass/Vol] 42 mg/dL Normal 0-149 [facility]; [facility] Work Phone: Lipid Panel ([id number]) 8 mg/dL Normal 5-40 [facility]; [facility] Work Phone: Lipid Panel ([id number]) 111 mg/dL Abnormal 0-99 [facility]; [facility] Work Phone: Lipid Panel ([id number]) 1.3 {ratio} Normal 0.0-3.2 [facility]; [facility] Work Phone: Metabolic Panel, Comprehensi ve ([id number])Ordered By: Coil Maker on 09-01-2021 Albumin [Mass/Vol] 4.3 g/dL Normal 3.7-4.7 [facility]; [facility] Work Phone: Albumin/Globulin [Mass ratio] 1.5 {ratio} Normal 1.2-2.2 [facility]; [facility] Work Phone: ALP [Catalytic activity/Vol] 83 U/L Normal 44-121 [facility]; [facility] Work Phone: ALT [Catalytic activity/Vol] 19 U/L Normal 0-32 [facility]; [facility] Work Phone: AST [Catalytic activity/Vol] 22 U/L Normal 0-40 [facility]; [facility] Work Phone: Bilirubin [Mass/Vol] 0.3 mg/dL Normal 0.0-1.2 [facility]; [facility] Work Phone: Calcium [Mass/Vol] 9.4 mg/dL Normal 8.7-10.3 [facility]; [facility] Work Phone: Chloride [Moles/Vol] 103 mmol/L Normal 96-106 [facility]; [facility] Work Phone: CO2 [Moles/Vol] 25 mmol/L Normal 20-29 [facility]; [facility] Work Phone: Creatinine [Mass/Vol] 0.88 mg/dL Normal 0.57-1.00 [facility]; [facility] Work Phone: GFR/1.73 sq M.predicted among blacks CKD-EPI (S/P/Bld) [Vol rate/Area] 74 mL/min/1.73 Normal [facility]; [facility] Work Phone: GFR/1.73 sq M.predicted among non-blacks CKD-EPI (S/P/Bld) [Vol rate/Area] 64 mL/min/1.73 Normal [facility]; [facility] Work Phone: Globulin (S) [Mass/Vol] 2.9 g/dL Normal 1.5-4.5 [facility]; [facility] Work Phone: Glucose [Mass/Vol] 90 mg/dL Normal 65-99 [facility]; [facility] Work Phone: Potassium [Moles/Vol] 4.1 mmol/L Normal 3.5-5.2 [facility] pre[facility]ive [facility]; [facility] Work Phone: Protein [Mass/Vol] 7.2 g/dL Normal 6.0-8.5 [facility]; [facility] Work Phone: Sodium [Moles/Vol] 142 mmol/L Normal 134-144 [facility]; [facility] Work Phone: Urea nitrogen [Mass/Vol] 21 mg/dL Normal 8-27 [facility]; [facility] Work Phone: Urea nitrogen/Creatinine [Mass ratio] 24 mg/mg Normal 12-28 [facility]; [facility] Work Phone: TSH ([id number])Ordered By: Syste m Senior Game Developer on 09-01-2021 TSH Qn 2.900 {uIU/mL} Normal 0.450-4.50 0 [facility]; [facility] Work Phone: INHOUSE Rapid Covid/ Flu A/ Flu BOrdered By: Dior Sevilla on 08-22-2021 INHOUSE Rapid Covid/ Flu A/ Flu B Positive Normal [facility]; [facility] Work Phone: CBC, Platelets & Auto Diff ( [id number])Ordered By: Coil Maker on 08-22-2020 Basophils (Bld) [#/Vol] 0.0 {x10E3/uL} Normal 0.0-0.2 [facility]; [facility] Work Phone: Comment on above: Aug 2020; PATIENT WA S FASTINGPERFORMED BY: LabCoSaint Clare[facility] Hospital at SussexCbayap1538 [facility] [id number] Basophils (Bld) [#/Vol] 0.0 10*3/uL Normal 0.0-0.2 [facility]; [facility] Work Phone: Basophils/100 WBC (Bld) 1 % Normal [facility]; [facility] Work Phone: Comment on above: Aug 2020; PATIENT AISLINN S FASTINGPERFORMED BY: CB [facility] [id number] [place] [id number] Eosinophils (Bld) [#/Vol] 0.4 {x10E3/uL} Normal 0.0-0.4 [facility]; [facility] Work Phone: Comment on above: Aug 2020; PATIENT AISLINN S FASTINGPERFORMED BY: CB [facility] [id number] [address]Dublin [place] [id number] Eosinophils (Bld) [#/Vol] 0.4 10*3/uL Normal 0.0-0.4 [facility]; [facility] Work Phone: Eosinophils/100 WBC (Bld) 10 % Normal [facility]; [facility] Work Phone: Comment on above: Aug 2020; PATIENT AISLINN S FASTINGPERFORMED BY: [facility] [id number] [place] [id number] Erythrocyte distribution width (RBC) [Ratio] 12.7 % Normal 11.7-15.4 [facility]; [facility] Work Phone: Comment on above: Aug 2020; PATIENT AISLINN S FASTINGPERFORMED BY: CB [facility] [id number] [address]Dublin [place] [id number] Hematocrit (Bld) [Volume fraction] 36.8 % Normal 34.0-46.6 [facility]; [facility] Work Phone: Comment on above: Aug 2020; PATIENT AISLINN S FASTINGPERFORMED BY: CB [facility] [id number] [place] [id number] Hemoglobin (Bld) [Mass/Vol] 12.1 g/dL Normal 11.1-15.9 [facility]; [facility] Work Phone: Comment on above: Aug 2020; PATIENT AISLINN S FASTINGPERFORMED BY: [facility] [id number] [address]Dublin [place] [id number] Immature granulocytes (Bld) [#/Vol] 0.0 {x10E3/uL} Normal 0.0-0.1 [facility]; [facility] Work Phone: Comment on above: Aug 2020; PATIENT AISLINN Bernal FASTINGPERFORMED BY: [facility] [id number] [address]Dublin [place] [id number] Immature granulocytes (Bld) [#/Vol] 0.0 10*3/uL Normal 0.0-0.1 [facility]; [facility] Work Phone: Immature granulocytes/100 WBC (Bld) 0 % Normal [facility]; [facility] Work Phone: Comment on above: Aug 2020; PATIENT AISLINN Bernal FASTINGPERFORMED BY: LabPace[employer] [id number]Dublin [place] [id number] Lymphocytes (Bld) [#/Vol] 1.4 {x10E3/uL} Normal 0.7-3.1 [facility]; [facility] Work Phone: Comment on above: Aug 2020; PATIENT AISLINN S FASTINGPERFORMED BY: LabSc[facility] [id number] [place] [id number] Lymphocytes (Bld) [#/Vol] 1.4 10*3/uL Normal 0.7-3.1 [facility]; [facility] Work Phone: Lymphocytes/100 WBC (Bld) 37 % Normal [facility]; [facility] Work Phone: Comment on above: Aug 2020; PATIENT AISLINN S FASTINGPERFORMED BY: [facility] [id number] [address]Dublin [place] [id number] MCH (RBC) [Entitic mass] 29.9 pg Normal 26.6-33.0 [facility]; [facility] Work Phone: Comment on above: Aug 2020; PATIENT AISLINN S FASTINGPERFORMED BY: [facility] [id number] [address] [place] [id number] MCHC (RBC) [Mass/Vol] 32.9 g/dL Normal 31.5-35.7 [facility] prehensive Internal [facility]; [facility] Work Phone: Comment on above: Aug 2020; PATIENT AISLINN Bernal FASTINGPERFORMED BY: CB [facility] [id number] [address]Dublin [place] [id number] MCV (RBC) [Entitic vol] 91 fL Normal 79-97 [facility]; [facility] Work Phone: Comment on above: Aug 2020; PATIENT AISLINN Bernal FASTINGPERFORMED BY: CB [facility] [id number] [place] [id number] Monocytes (Bld) [#/Vol] 0.2 {x10E3/uL} Normal 0.1-0.9 [facility]; [facility] Work Phone: Comment on above: Aug 2020; PATIENT AISLINN Bernal FASTINGPERFORMED BY: CB [facility] [id number] [address] [place] [id number] Monocytes (Bld) [#/Vol] 0.2 10*3/uL Normal 0.1-0.9 [facility]; [facility] Work Phone: Monocytes/100 WBC (Bld) 5 % Normal [facility]; [facility] Work Phone: Comment on above: Aug 2020; PATIENT AISLINN Bernal FASTINGPERFORMED BY: CB [facility] [id number] [address]Duin [place] [id number] Neutrophils (Bld) [#/Vol] 1.7 {x10E3/uL} Normal 1.4-7.0 [facility]; [facility] Work Phone: Comment on above: Aug 2020; PATIENT AISLINN S FASTINGPERFORMED BY: CB [facility] [id number] [place] [id number] Neutrophils (Bld) [#/Vol] 1.7 10*3/uL Normal 1.4-7.0 [facility]; [facility] Work Phone: Neutrophils/100 WBC (Bld) 47 % Normal [facility]; [facility] Work Phone: Comment on above: Aug 2020; PATIENT AISLINN S FASTINGPERFORMED BY: [employer] [id number] [facility]in [place] [id number] Platelets (Bld) [#/Vol] 211 {x10E3/uL} Normal 150-450 [facility]; [facility] Work Phone: Comment on above: Aug 2020; PATIENT AISLINN S FASTINGPERFORMED BY: [employer] Xypkty0579 [address] [facility] [place] [id number] Platelets (Bld) [#/Vol] 211 10*3/uL Normal 150-450 [facility]; [facility] Work Phone: RBC (Bld) [#/Vol] 4.05 {x10E6/uL} Normal 3.77-5.[address] [facility] Medicine; [facility] Work Phone: Comment on above: Aug 2020; PATIENT AISLINN S FASTINGPERFORMED BY: ALEX [employer] Xcdovb4223 [facility] [id number] RBC (Bld) [#/Vol] 4.05 10*6/uL Normal 3.77-5.28 [facility] Internal Medicine; [facility] Work Phone: WBC (Bld) [#/Vol] 3.7 {x10E3/uL} Normal 3.4-10.8 [facility]; [facility] Work Phone: Comment on above: Aug 2020; PATIENT AISLINN S FASTINGPERFORMED BY: [employer] [id number] [facility] [id number] WBC (Bld) [#/Vol] 3.7 10*3/uL Normal 3.4-10.8 [facility] Medicine; [facility] Work Phone: Lipid Panel (02017)Ordered B y: Coil Maker on 08-22-2020 Cholesterol [Mass/Vol] 227 mg/dL Abnormal 100-199 [facility]; [facility] Work Phone: Comment on above: Aug 2020; PATIENT AISLINN S FASTINGPERFORMED BY: CB [facility] Syvcpb1004 [address] RoadDublin [place] [id number] Cholesterol in HDL [Mass/Vol] 89 mg/dL Normal [facility]; [facility] Work Phone: Comment on above: Aug 2020; PATIENT AISLINN S FASTINGPERFORMED BY: CB [facility] Tymeht3649 [address] RoadDublin [place] [id number] Cholesterol in LDL/Cholesterol in HDL [Mass ratio] 1.5 {ratio} Normal 0.0-3.2 [facility]; [facility] Work Phone: Comment on above: LDL/HDL Ratio Men Wo men 1/2 Avg.Risk 1.0 1.5 Avg.Risk 3.6 3.2 2X Avg.Risk 6.2 5.0 3X Avg.Risk 8.0 6.15 Aug 2020; PATIENT AISLINN S FASTINGPERFORMED BY: CB [facility] Irkbyl7920 [address] RoadDublin [place] [id number] Triglyceride [Mass/Vol] 49 mg/dL Normal 0-149 [facility]; [facility] Work Phone: Comment on above: Aug 2020; PATIENT AISLINN S FASTINGPERFORMED BY: CB [facility] Wsxhas1326 [address] RoadDublin [place] [id number] Lipid Panel (51459) 130 mg/dL Abnormal 0-99 Compr ensive [facility]; [facility] Work Phone: Comment on above: Aug 2020; PATIENT AISLINN S FASTINGPERFORMED BY: CB [facility] Zrpigu7174 [address] RoadDublin [place] [id number] Lipid Panel (23253) 8 mg/dL Normal 5-40 Compr ens[facility]; [facility] Work Phone: Comment on above: Aug 2020; PATIENT AISLINN S FASTINGPERFORMED BY: CB [facility] Kdkzpi6202 [address] RoadDublin [place] [id number] Lipid Panel (83195) 1.5 {ratio} Normal 0.0-3.2 [facility]; [facility] Work Phone: Metabolic Panel, Comprehensi ve (39532)Ordered By: Coil Maker on 08-22-2020 Albumin [Mass/Vol] 4.4 g/dL Normal 3.7-4.7 [facility] Medicine; [facility] Work Phone: Comment on above: Aug 2020; PATIENT AISLINN S FASTINGPERFORMED BY: CB [facility] Uevkpa5872 [address] RoadDublin [place] [id number] Albumin/Globulin [Mass ratio] 1.6 {ratio} Normal 1.2-2.2 [facility]; [facility] Work Phone: Comment on above: Aug 2020; PATIENT AISLINN S FASTINGPERFORMED BY: CB [facility] Jseynk8253 [address] RoadDublin [place] [id number] ALP [Catalytic activity/Vol] 88 [iU]/L Normal 39-117 [facility]; [facility] Work Phone: Comment on above: Aug 2020; PATIENT AISLINN S FASTINGPERFORMED BY: CB [facility] Rizmyd3540 [address] RoadDublin [place] [id number] ALP [Catalytic activity/Vol] 88 U/L Normal 39-117 [facility]; [facility] Work Phone: ALT [Catalytic activity/Vol] 18 [iU]/L Normal 0-32 [facility]; [facility] Work Phone: Comment on above: Aug 2020; PATIENT AISLINN S FASTINGPERFORMED BY: CB [facility] Wyccoi3698 [address] RoadDublin [place] [id number] ALT [Catalytic activity/Vol] 18 U/L Normal 0-32 [facility]; [facility] Work Phone: AST [Catalytic activity/Vol] 20 [iU]/L Normal 0-40 [facility]; [facility] Work Phone: Comment on above: Aug 2020; PATIENT AISLINN S FASTINGPERFORMED BY: CB [facility] Pdtkcr3185 [address] RoadDublin [place] [id number] AST [Catalytic activity/Vol] 20 U/L Normal 0-40 [facility]; [facility] Work Phone: Bilirubin [Mass/Vol] 0.4 mg/dL Normal 0.0-1.2 [facility] rehensive Internal Medicine; [facility] Work Phone: Comment on above: Aug 2020; PATIENT AISLINN S FASTINGPERFORMED BY: CB [facility] Cgctdc9020 [address] RoadDublin [place] [id number] Calcium [Mass/Vol] 9.5 mg/dL Normal 8.7-10.3 [facility] Internal Medicine; [facility] Work Phone: Comment on above: Aug 2020; PATIENT AISLINN S FASTINGPERFORMED BY: CB [facility] Jvzjke2776 [address] RoadDublin [place] [id number] Chloride [Moles/Vol] 104 mmol/L Normal 96-106 [facility]; [facility] Work Phone: Comment on above: Aug 2020; PATIENT AISLINN S FASTINGPERFORMED BY: CB [facility] Dpepxg7141 [address] RoadDublin [place] [id number] CO2 [Moles/Vol] 25 mmol/L Normal 20-29 [facility] Internal Medicine; [facility] Work Phone: Comment on above: Aug 2020; PATIENT AISLINN S FASTINGPERFORMED BY: CB [facility] Wvsrby9180 [address] RoadDublin [place] [id number] Creatinine [Mass/Vol] 1.00 mg/dL Normal 0.57-1.00 [facility]; [facility] Work Phone: Comment on above: Aug 2020; PATIENT AISLINN S FASTINGPERFORMED BY: CB [facility] Zfsseq2875 [address] RoadDublin [place] [id number] GFR/1.73 sq M predicted among blacks CKD-EPI (S/P/Bld) [Vol rate/Area] 64 mL/min/1.73 Normal [facility]; [facility] Work Phone: Comment on above: Aug 2020; PATIENT AISLINN S FASTINGPERFORMED BY: CB [facility] Uckrcg1311 [address] RoadDublin [place] [id number] GFR/1.73 sq M predicted among non-blacks CKD-EPI (S/P/Bld) [Vol rate/Area] 56 mL/min/1.73 Abnormal [facility]; [facility] Work Phone: Comment on above: Aug 2020; PATIENT AISLINN S FASTINGPERFORMED BY: CB [facility] Loriuv0707 [address] RoadDublin [place] [id number] Globulin (S) [Mass/Vol] 2.7 g/dL Normal 1.5-4.5 [facility]; [facility] Work Phone: Comment on above: Aug 2020; PATIENT AISLINN S FASTINGPERFORMED BY: CB [facility] Aubzzw4645 [address] RoadDublin [place] [id number] Glucose [Mass/Vol] 92 mg/dL Normal 65-99 [facility] Internal Medicine; [facility] Work Phone: Comment on above: Aug 2020; PATIENT AISLINN S FASTINGPERFORMED BY: CB [facility] Basxyw4912 [address] RoadDublin [place] [id number] Potassium [Moles/Vol] 4.3 mmol/L Normal 3.5-5.2 [facility] Internal Medicine; [facility] Work Phone: Comment on above: Aug 2020; PATIENT AISLINN S FASTINGPERFORMED BY: CB [facility] Absmie2210 [address] RoadDublin [place] [id number] Protein [Mass/Vol] 7.1 g/dL Normal 6.0-8.5 [facility]; [facility] Work Phone: Comment on above: Aug 2020; PATIENT AISLINN S FASTINGPERFORMED BY: CB [facility] Ndelxp3811 [address] RoadDublin [place] [id number] Sodium [Moles/Vol] 142 mmol/L Normal 134-144 [facility]; [facility] Work Phone: Comment on above: Aug 2020; PATIENT AISLINN S FASTINGPERFORMED BY: CB [facility] Ihlaez5461 [address] RoadDublin [place] [id number] Urea nitrogen [Mass/Vol] 19 mg/dL Normal 8-27 [facility]; [facility] Work Phone: Comment on above: Aug 2020; PATIENT AISLINN S FASTINGPERFORMED BY: [facility] Njrbms3137 [address] RoadDublin [place] [id number] Urea nitrogen/Creatinine [Mass ratio] 19 mg/mg Normal 12-28 [facility]; [facility] Work Phone: Comment on above: Aug 2020; PATIENT AISLINN S FASTINGPERFORMED BY: [facility] Ybddkm0404 [address] [facility] [id number] TSH ([id number])Ordered By: 3Node m Senior Game Developer on 08-22-2020 TSH Qn 2.730 {uIU/mL} Normal 0.450-4.50 0 [facility]; [facility] Work Phone: Comment on above: Aug 2020; PATIENT AISLINN S FASTINGPERFORMED BY: ALEX [facility] Rsyfpk2108 [address] [facility]in [place] [id number] CBC, Platelets & Auto Diff ( [id number])Ordered By: Coil Maker on 08-18-2019 Basophils (Bld) [#/Vol] 0.1 {x10E3/uL} Normal 0.0-0.2 [facility] Work Phone: Comment on above: PATIENT NOT FASTINGP ERFORMED BY: [facility] Ovvdlq2004 [address] [facility] LivoniaDuin [place] [id number] Basophils (Bld) [#/Vol] 0.1 10*3/uL Normal 0.0-0.2 [facility]; [facility] Work Phone: Basophils/100 WBC (Bld) 1 % Normal [facility] Work Phone: Comment on above: PATIENT NOT FASTINGP ERFORMED BY: CB [facility] Rbzonc1733 [address] RoadDublin [place] [id number] Eosinophils (Bld) [#/Vol] 0.4 {x10E3/uL} Normal 0.0-0.4 [facility] Work Phone: Comment on above: PATIENT NOT FASTINGP ERFORMED BY: CB [facility] Lyxmsq1093 [address] RoadDublin [place] [id number] Eosinophils (Bld) [#/Vol] 0.4 10*3/uL Normal 0.0-0.4 [facility]; [facility] Work Phone: Eosinophils/100 WBC (Bld) 8 % Normal [facility] Work Phone: Comment on above: PATIENT NOT FASTINGP ERFORMED BY: CB [facility] Vpfqoo7312 [address] RoadDublin [place] [id number] Erythrocyte distribution width (RBC) [Ratio] 12.7 % Normal 11.7-15.4 [facility] Work Phone: Comment on above: PATIENT NOT FASTINGP ERFORMED BY: CB [facility] Gposbo4474 [address] RoadDublin [place] [id number] Hematocrit (Bld) [Volume fraction] 36.6 % Normal 34.0-46.6 [facility] Work Phone: Comment on above: PATIENT NOT FASTINGP ERFORMED BY: CB [facility] Jhkwgk4689 [address] RoadDublin [place] [id number] Hemoglobin (Bld) [Mass/Vol] 12.3 g/dL Normal 11.1-15.9 [facility] Work Phone: Comment on above: PATIENT NOT FASTINGP ERFORMED BY: CB [facility] Qptgdl0873 [address] RoadDublin [place] [id number] Immature granulocytes (Bld) [#/Vol] 0.0 {x10E3/uL} Normal 0.0-0.1 [facility] Work Phone: Comment on above: PATIENT NOT FASTINGP ERFORMED BY: CB [facility] Yzhyze6809 [address]Dublin [place] [id number] Immature granulocytes (Bld) [#/Vol] 0.0 10*3/uL Normal 0.0-0.1 [facility]; [facility] Work Phone: Immature granulocytes/100 WBC (Bld) 0 % Normal [facility] Work Phone: Comment on above: PATIENT NOT FASTINGP ERFORMED BY: CB [facility] Actsvd8146 [address] RoadDublin [place] [id number] Lymphocytes (Bld) [#/Vol] 1.8 {x10E3/uL} Normal 0.7-3.1 [facility] Work Phone: Comment on above: PATIENT NOT FASTINGP ERFORMED BY: ALEX Manleylin6370 [facility] [id number] Lymphocytes (Bld) [#/Vol] 1.8 10*3/uL Normal 0.7-3.1 [facility]; [facility] Work Phone: Lymphocytes/100 WBC (Bld) 38 % Normal [facility] Work Phone: Comment on above: PATIENT NOT FASTINGP ERFORMED BY: [facility] Ljraow1490 [facility] [id number] MCH (RBC) [Entitic mass] 30.0 pg Normal 26.6-33.0 [facility] Internal Medicine Work Phone: Comment on above: PATIENT NOT FASTINGP ERFORMED BY: LabMit[place] [id number] [facility] [id number] MCHC (RBC) [Mass/Vol] 33.6 g/dL Normal 31.5-35.7 [facility] Internal Medicine Work Phone: Comment on above: PATIENT NOT FASTINGP ERFORMED BY: Jessica Nipdjz8042 [facility] [id number] MCV (RBC) [Entitic vol] 89 fL Normal 79-97 [facility] Work Phone: Comment on above: PATIENT NOT FASTINGP ERFORMED BY: LabMit[place] [id number] [facility] [id number] Monocytes (Bld) [#/Vol] 0.2 {x10E3/uL} Normal 0.1-0.9 [facility] Work Phone: Comment on above: PATIENT NOT FASTINGP ERFORMED BY: Lab[place] [id number] [facility] [id number] Monocytes (Bld) [#/Vol] 0.2 10*3/uL Normal 0.1-0.9 [facility]; [facility] Work Phone: Monocytes/100 WBC (Bld) 5 % Normal [facility] Work Phone: Comment on above: PATIENT NOT FASTINGP ERFORMED BY: ALEX Villegas6370 [address] RoadDublin [place] [id number] Neutrophils (Bld) [#/Vol] 2.3 {x10E3/uL} Normal 1.4-7.0 [facility] Work Phone: Comment on above: PATIENT NOT FASTINGP ERFORMED BY: CB [facility] Ufuaia1591 [address] RoadDublin [place] [id number] Neutrophils (Bld) [#/Vol] 2.3 10*3/uL Normal 1.4-7.0 [facility]; [facility] Work Phone: Neutrophils/100 WBC (Bld) 48 % Normal [facility] Work Phone: Comment on above: PATIENT NOT FASTINGP ERFORMED BY: ALEX Villegas6370 [address] RoadCritical Access Hospitalin [place] [id number] Platelets (Bld) [#/Vol] 223 {x10E3/uL} Normal 150-450 [facility] Work Phone: Comment on above: PATIENT NOT FASTINGP ERFORMED BY: ALEX [address] [facility] [place] [id number] Platelets (Bld) [#/Vol] 223 10*3/uL Normal 150-450 [facility]; [facility] Work Phone: RBC (Bld) [#/Vol] 4.10 {x10E6/uL} Normal 3.77-5.28 [facility] Internal [facility] Work Phone: Comment on above: PATIENT NOT FASTINGP ERFORMED BY: ALEX [facility] Qrdtzk8139 [address] [facility]in [place] [id number] RBC (Bld) [#/Vol] 4.10 10*6/uL Normal 3.77-5.28 [facility] Internal Medicine; [facility] Work Phone: WBC (Bld) [#/Vol] 4.7 {x10E3/uL} Normal 3.4-10.8 [facility] Work Phone: Comment on above: PATIENT NOT FASTINGP ERFORMED BY: CB [facility] Jnzzyg4557 [address] RoadDublin [place] [id number] WBC (Bld) [#/Vol] 4.7 10*3/uL Normal 3.4-10.8 [facility] Internal Medicine; [facility] Internal Medicine Work Phone: Metabolic Panel, Basic ([phone])Ordered By: Coil Maker on 08-18-2019 Calcium [Mass/Vol] 9.6 mg/dL Normal 8.7-10.3 [facility] Internal Medicine Work Phone: Comment on above: PATIENT NOT FASTINGP ERFORMED BY: CB [facility] Xnxxlq1254 [address] RoadDublin [place] [id number] Chloride [Moles/Vol] 104 mmol/L Normal 96-106 [facility] Work Phone: Comment on above: PATIENT NOT FASTINGP ERFORMED BY: CB [facility] Hsdbvy7136 [address] RoadDublin [place] [id number] CO2 [Moles/Vol] 23 mmol/L Normal 20-29 [facility] Internal Medicine Work Phone: Comment on above: PATIENT NOT FASTINGP ERFORMED BY: CB [facility] Xpxwcc0229 [address] RoadDublin [place] [id number] Creatinine [Mass/Vol] 1.01 mg/dL Abnormal 0.57-1.00 [facility] Work Phone: Comment on above: PATIENT NOT FASTINGP ERFORMED BY: CB [facility] Jfprfh5672 [address] RoadDublin [place] [id number] GFR/1.73 sq M predicted among blacks CKD-EPI (S/P/Bld) [Vol rate/Area] 64 mL/min/1.73 Normal [facility] Internal Medicine Work Phone: Comment on above: PATIENT NOT FASTINGP ERFORMED BY: CB [facility] Egiftb0391 [address] RoadDublin [place] [id number] GFR/1.73 sq M predicted among non-blacks CKD-EPI (S/P/Bld) [Vol rate/Area] 55 mL/min/1.73 Abnormal [facility] Work Phone: Comment on above: PATIENT NOT FASTINGP ERFORMED BY: CB [facility] Avjxpw6681 [address] RoadDublin [place] [id number] Glucose [Mass/Vol] 87 mg/dL Normal 65-99 [facility] Internal Medicine Work Phone: Comment on above: PATIENT NOT FASTINGP ERFORMED BY: CB [facility] Dpryns7902 [address] RoadDublin [place] [id number] Potassium [Moles/Vol] 4.2 mmol/L Normal 3.5-5.2 [facility] Internal Medicine Work Phone: Comment on above: PATIENT NOT FASTINGP ERFORMED BY: CB [facility] Ikwgzb2987 [address] RoadDublin [place] [id number] Sodium [Moles/Vol] 143 mmol/L Normal 134-144 [facility] Internal Medicine Work Phone: Comment on above: PATIENT NOT FASTINGP ERFORMED BY: CB [facility] Urlwec1247 [address] RoadDublin [place] [id number] Urea nitrogen [Mass/Vol] 24 mg/dL Normal 8-27 [facility] Internal Medicine Work Phone: Comment on above: PATIENT NOT FASTINGP ERFORMED BY: CB [facility] Vweeyc0556 [address] RoadDublin [place] [id number] Urea nitrogen/Creatinine [Mass ratio] 24 mg/mg Normal 12-28 [facility] Internal Medicine Work Phone: Comment on above: PATIENT NOT FASTINGP ERFORMED BY: CB [facility] Qexpnt5573 [address] RoadDublin [place] [id number] TSH ([id number])Ordered By: Sita Grewal on 08-18-2019 TSH Qn 2.390 {uIU/mL} Normal 0.450-4.50 0 [facility] Work Phone: Comment on above: PATIENT NOT FASTINGP ERFORMED BY: CB [facility] Pfdhrn4001 [address] RoadDublin [place] [id number] CBC WITH MANUAL DIFF ([id number]) Ordered By: Coil Maker on 10-16-2018 Basophils #/vol (Bld) 0.0 {x10E3/uL} Normal 0.0-0.2 [facility] Work Phone: Comment on above: PATIENT WAS FASTINGP ERFORMED BY: ALEX [facility] Rfmeuk1649 [facility] [id number] Basophils (Bld) [#/Vol] 0.0 10*3/uL Normal 0.0-0.2 [facility]; [facility] Work Phone: Basophils/100 WBC (Bld) 1 % Normal [facility] Work Phone: Comment on above: PATIENT WAS FASTINGP ERFORMED BY: ALEX Manleylin6370 [facility] [id number] Eosinophils #/vol (Bld) 0.2 {x10E3/uL} Normal 0.0-0.4 [facility] Work Phone: Comment on above: PATIENT WAS FASTINGP ERFORMED BY: ALEX Manleylin6370 [facility] [id number] Eosinophils (Bld) [#/Vol] 0.2 10*3/uL Normal 0.0-0.4 [facility]; [facility] Work Phone: Eosinophils/100 WBC (Bld) 5 % Normal [facility] Work Phone: Comment on above: PATIENT WAS FASTINGP ERFORMED BY: ALEX Manleylin6370 [facility] [id number] Erythrocyte distribution width Ratio (RBC) 13.5 % Normal 12.3-15.4 [facility] Work Phone: Comment on above: PATIENT WAS FASTINGP ERFORMED BY: ALEX LabTravis ManleyBbckpu3561 [facility] [id number] Hematocrit Volume Fraction (Bld) 34.6 % Normal 34.0-46.6 [facility] Work Phone: Comment on above: PATIENT WAS FASTINGP ERFORMED BY: [place] [id number] [facility] [id number] Hemoglobin mass conc (Bld) 11.4 g/dL Normal 11.1-15.9 [facility] Work Phone: Comment on above: PATIENT WAS FASTINGP ERFORMED BY: [place] [id number] [facility] [id number] Immature granulocytes #/vol (Bld) 0.0 {x10E3/uL} Normal 0.0-0.1 [facility] Work Phone: Comment on above: PATIENT WAS FASTINGP ERFORMED BY: [address] [id number] Immature granulocytes (Bld) [#/Vol] 0.0 10*3/uL Normal 0.0-0.1 [facility]; [facility] Work Phone: Immature granulocytes/100 WBC (Bld) 0 % Normal [facility] Work Phone: Comment on above: PATIENT WAS FASTINGP ERFORMED BY: [place] [id number] [facility] [id number] Lymphocytes #/vol (Bld) 1.4 {x10E3/uL} Normal 0.7-3.1 [facility] Work Phone: Comment on above: PATIENT WAS FASTINGP ERFORMED BY: [address] [id number] Lymphocytes (Bld) [#/Vol] 1.4 10*3/uL Normal 0.7-3.1 [facility]; [facility] Work Phone: Lymphocytes/100 WBC (Bld) 42 % Normal [facility] Work Phone: Comment on above: PATIENT WAS FASTINGP ERFORMED BY: [place] [id number] [facility] [id number] MCH Entitic mass (RBC) 28.9 pg Normal 26.6-33.0 [facility] Work Phone: Comment on above: PATIENT WAS FASTINGP ERFORMED BY: [address] [place] [id number] MCHC mass conc (RBC) 32.9 g/dL Normal 31.5-35.7 [facility] Internal Medicine Work Phone: Comment on above: PATIENT WAS FASTINGP ERFORMED BY: [facility]6370 [facility] [id number] MCV Entitic volume (RBC) 88 fL Normal 79-97 [facility] Work Phone: Comment on above: PATIENT WAS FASTINGP ERFORMED BY: [facility]6370 [facility] [id number] Monocytes #/vol (Bld) 0.1 {x10E3/uL} Normal 0.1-0.9 [facility] Work Phone: Comment on above: PATIENT WAS FASTINGP ERFORMED BY: [facility]6370 [facility] [id number] Monocytes (Bld) [#/Vol] 0.1 10*3/uL Normal 0.1-0.9 [facility]; [facility] Work Phone: Monocytes/100 WBC (Bld) 3 % Normal [facility] Work Phone: Comment on above: PATIENT WAS FASTINGP ERFORMED BY: [facility]6370 [facility] [id number] Neutrophils #/vol (Bld) 1.7 {x10E3/uL} Normal 1.4-7.0 [facility] Work Phone: Comment on above: PATIENT WAS FASTINGP ERFORMED BY: [facility]6370 [facility] [id number] Neutrophils (Bld) [#/Vol] 1.7 10*3/uL Normal 1.4-7.0 [facility]; [facility] Work Phone: Neutrophils/100 WBC (Bld) 49 % Normal [facility] Work Phone: Comment on above: PATIENT WAS FASTINGP ERFORMED BY: [facility]6370 [facility] [id number] Platelets #/vol (Bld) 239 {x10E3/uL} Normal 150-379 [facility] Work Phone: Comment on above: PATIENT WAS FASTINGP ERFORMED BY: ALEX Manleylin6370 [facility] [id number] Platelets (Bld) [#/Vol] 239 10*3/uL Normal 150-379 [facility]; [facility] Work Phone: RBC #/vol (Bld) 3.94 {x10E6/uL} Normal 3.77-5.28 [facility] Work Phone: Comment on above: PATIENT WAS FASTINGP ERFORMED BY: ALEX Villegas6370 [facility] [id number] RBC (Bld) [#/Vol] 3.94 10*6/uL Normal 3.77-5.28 Compr ensive Internal Medicine; [facility] Work Phone: WBC #/vol (Bld) 3.4 {x10E3/uL} Normal 3.4-10.8 Compr [facility] Internal Medicine Work Phone: Comment on above: PATIENT WAS FASTINGP ERFORMED BY: ALEX Villegas6370 [facility] [id number] WBC (Bld) [#/Vol] 3.4 10*3/uL Normal 3.4-10.8 [facility]; [facility] Work Phone: LIPID PANEL ([id number])Ordered B y: Coil Maker on 10-16-2018 Cholesterol in HDL mass conc 66 mg/dL Normal [facility] Work Phone: Comment on above: PATIENT WAS FASTINGP ERFORMED BY: ALEX Manleylin6370 [facility] [id number] Cholesterol in LDL mass conc 115 mg/dL Abnormal 0-99 [facility] Work Phone: Comment on above: PATIENT WAS FASTINGP ERFORMED BY: ALEX Manleylin6370 [facility] [id number] Cholesterol in LDL/Cholesterol in HDL mass ratio 1.7 {ratio} Normal 0.0-3.2 [facility] Work Phone: Comment on above: LDL/HDL Ratio Men Wo men 1/2 Avg.Risk 1.0 1.5 Avg.Risk 3.6 3.2 2X Avg.Risk 6.2 5.0 3X Avg.Risk 8.0 6.1 PATIENT WAS FASTINGP ERFORMED BY: ALEX [facility] Pyetgf1850 [address] [facility]versCritical [facility] Hospitalin [place] [id number] Cholesterol in VLDL mass conc 10 mg/dL Normal 5-40 [facility] Work Phone: Comment on above: PATIENT WAS FASTINGP ERFORMED BY: ALEX LabCodaniella ManleySjhldv4130 [address] [facility]versNovant [facility] [id number] Cholesterol mass conc 191 mg/dL Normal 100-199 [facility] prehensive Internal Medicine Work Phone: Comment on above: PATIENT WAS FASTINGP ERFORMED BY: ALEX LabCodaniella ManleyMczagt7976 [address] [facility]versNovant [facility] [id number] Triglyceride mass conc 50 mg/dL Normal 0-149 [facility] Work Phone: Comment on above: PATIENT WAS FASTINGP ERFORMED BY: ALEX LabCodaniella ManleyFpxoni3528 [facility] [id number] METABOLIC PANEL, COMPREHENSI VE ([id number])Ordered By: Coil Maker on 10-16-2018 Albumin mass conc 4.3 g/dL Normal 3.5-4.8 Compreh ensive Internal Medicine Work Phone: Comment on above: PATIENT WAS FASTINGP ERFORMED BY: ALEX [facility] Mclxgk7181 [address] [facility] [place] [id number] Albumin/Globulin mass ratio 1.4 {ratio} Normal 1.2-2.2 [facility] Work Phone: Comment on above: PATIENT WAS FASTINGP ERFORMED BY: ALEX LabCodaniella Rocrse3626 [facility] [place] [id number] ALP [Catalytic activity/Vol] 78 U/L Normal 39-117 [facility]; [facility] Work Phone: ALP enzyme act/vol 78 [iU]/L Normal 39-117 [facility] Internal Medicine Work Phone: Comment on above: PATIENT WAS FASTINGP ERFORMED BY: CB [facility] Atgxer7828 [address]ila RoadDublin [place] [id number] ALT [Catalytic activity/Vol] 10 U/L Normal 0-32 [facility]; [facility] Work Phone: ALT enzyme act/vol 10 [iU]/L Normal 0-32 [facility] Internal Medicine Work Phone: Comment on above: PATIENT WAS FASTINGP ERFORMED BY: CB [facility] Ahqqdf7095 Avila RoadDublin [place] [id number] AST [Catalytic activity/Vol] 15 U/L Normal 0-40 [facility]; [facility] Internal Medicine Work Phone: AST enzyme act/vol 15 [iU]/L Normal 0-40 [facility] Internal Medicine Work Phone: Comment on above: PATIENT WAS FASTINGP ERFORMED BY: [facility] Ltvnty6603 [address]ila RoadDublin [place] [id number] Bilirubin mass conc 0.3 mg/dL Normal 0.0-1.2 Compr [facility] Internal Medicine Work Phone: Comment on above: PATIENT WAS FASTINGP ERFORMED BY: [facility] Grnuop2904 [address] RoadDublin [place] [id number] Calcium mass conc 9.2 mg/dL Normal 8.7-10.3 Compreh ensive Internal Medicine Work Phone: Comment on above: PATIENT WAS FASTINGP ERFORMED BY: CB [facility] Dkkxyw9418 Avila RoadDublin [place] [id number] Chloride molar conc 105 mmol/L Normal 96-106 Compr ensive Internal Medicine Work Phone: Comment on above: PATIENT WAS FASTINGP ERFORMED BY: CB [facility] Szkplj1866 [address] RoadDublin [place] [id number] CO2 molar conc 24 mmol/L Normal 20-29 Comprehens shanta Internal Medicine Work Phone: Comment on above: PATIENT WAS FASTINGP ERFORMED BY: [facility] Ybsmhe0475 [address] RoadDublin [place] [id number] Creatinine mass conc 0.86 mg/dL Normal 0.57-1.00 Comp rehensive Internal Medicine Work Phone: Comment on above: PATIENT WAS FASTINGP ERFORMED BY: [facility] Gpkejf9177 Avila RoadDublin [place] [id number] GFR/1.73 sq M predicted among blacks CKD-EPI vol rate/area (S/P/Bld) 78 mL/min/1.73 Normal Comprehensiv e Internal Medicine Work Phone: Comment on above: PATIENT WAS FASTINGP ERFORMED BY: [facility] Vmsnwb6910 [address] RoadDublin [place] [id number] GFR/1.73 sq M predicted among non-blacks CKD-EPI vol rate/area (S/P/Bld) 67 mL/min/1.73 Normal [facility] Work Phone: Comment on above: PATIENT WAS FASTINGP ERFORMED BY: [facility] Imzphq5191 [address] RoadDublin [place] [id number] Globulin mass conc (S) 3.1 g/dL Normal 1.5-4.5 [facility] Work Phone: Comment on above: PATIENT WAS FASTINGP ERFORMED BY: [facility] Ruzsmh7745 [address]ila RoadDublin [place] [id number] Glucose mass conc 86 mg/dL Normal 65-99 Compreh ensive Internal Medicine Work Phone: Comment on above: PATIENT WAS FASTINGP ERFORMED BY: [facility] Kzustl2229 [address] RoadDublin [place] [id number] Potassium molar conc 4.7 mmol/L Normal 3.5-5.2 Comp rehensive Internal Medicine Work Phone: Comment on above: PATIENT WAS FASTINGP ERFORMED BY: [facility] Eonvmt4762 [address] RoadDublin [place] [id number] Protein mass conc 7.4 g/dL Normal 6.0-8.5 Compreh ensive Internal Medicine Work Phone: Comment on above: PATIENT WAS FASTINGP ERFORMED BY: ALEX [facility] Tvnzdf2313 [address] RoadDublin [place] [id number] Sodium molar conc 142 mmol/L Normal 134-144 Compreh ensive Internal Medicine Work Phone: Comment on above: PATIENT WAS FASTINGP ERFORMED BY: ALEX [facility] Agdlhr7068 [address] RoadDublin [place] [id number] Urea nitrogen mass conc 20 mg/dL Normal 8-27 [facility] Work Phone: Comment on above: PATIENT WAS FASTINGP ERFORMED BY: [facility] Tgntee8807 [address] RoadDublin [place] [id number] Urea nitrogen/Creatinine mass ratio 23 mg/mg Normal 12- [facility] Work Phone: Comment on above: PATIENT WAS FASTINGP ERFORMED BY: [facility] Mtjuop7244 [address] [facility] [place] [id number] TSH (THYROID STIMULATING HOR MAYRA) ([id number])Ordered By: Coil Maker on 10-16-2018 Thyrotropin Qn 2.100 {uIU/mL} Normal 0.450-4.50 0 [facility] Work Phone: Comment on above: PATIENT WAS FASTINGP ERFORMED BY: [facility] Vwyctr9047 [address] Roadblin [place] [id number] URINALYSIS, W/ MICRO ([id number]) Ordered By: Coil Maker on 10-16-2018 Appearance Nom (U) Clear Normal Compre hensive Internal Medicine Work Phone: Comment on above: PATIENT WAS FASTINGP ERFORMED BY: [facility] Dynuwi8543 [address] RoadDublin [place] [id number] Bilirubin Ql (U) Negative Normal Comprehe nsive Internal Medicine Work Phone: Comment on above: PATIENT WAS FASTINGP ERFORMED BY: [facility] Athtgg8722 [address] RoadDublin [place] [id number] Bilirubin Ql (U) Negative Normal Comprehe nsive Internal Medicine; [facility] Work Phone: Color Nom (U) Yellow Normal Comprehensi ve Internal Medicine Work Phone: Comment on above: PATIENT WAS FASTINGP ERFORMED BY: ALEX [facility] Qdsnnw5784 [address] RoadDublin [place] [id number] Glucose Ql (U) Negative Normal Comprehens shanta Internal Medicine Work Phone: Comment on above: PATIENT WAS FASTINGP ERFORMED BY: ALEX [facility] Msbqpm8881 [address] RoadDublin [place] [id number] Glucose Ql (U) Negative Normal Comprehens shanta Internal Medicine; [facility] Work Phone: Hemoglobin Ql (U) 1+ Abnormal Compreh ensive Internal Medicine Work Phone: Comment on above: PATIENT WAS FASTINGP ERFORMED BY: ALEX LabCodaniella ManleyCtutai4663 [address] RoadDublin [place] [id number] Ketones Ql (U) Negative Normal Comprehens shanta Internal Medicine Work Phone: Comment on above: PATIENT WAS FASTINGP ERFORMED BY: ALEX LabCodaniella ManleyPadhpt0042 [address] RoadDublin [place] [id number] Ketones Ql (U) Negative Normal Comprehens shanta Internal Medicine; [facility] Work Phone: Leukocyte esterase Test strip Ql (U) Negative Normal [facility] Work Phone: Comment on above: PATIENT WAS FASTINGP ERFORMED BY: ALEX LabTravis ManleyTuered3457 [address] RoadDublin [place] [id number] Leukocyte esterase Test strip Ql (U) Negative Normal [facility]; [facility] Work Phone: Microscopic observation LM Nom (Urine sed) See below: Normal [facility] Work Phone: Comment on above: Microscopic was jared cated and was performed. PATIENT WAS FASTINGP ERFORMED BY: ALEX [facility] Cezcyk5287 [address] RoadDublin [place] [id number] Nitrite Ql (U) Negative Normal Comprehens sahnta Internal Medicine Work Phone: Comment on above: PATIENT WAS FASTINGP ERFORMED BY: ALEX [facility] Vapayu5108 [address] RoadDublin [place] [id number] Nitrite Ql (U) Negative Normal Comprehens shanta Internal Medicine; [facility] Work Phone: pH (U) 6.0 [pH] Normal 5.0-7.5 [facility] Work Phone: Comment on above: PATIENT WAS FASTINGP ERFORMED BY: [facility]6370 [facility] [id number] Protein Ql (U) Negative Normal Comprehens shanta Internal Medicine Work Phone: Comment on above: PATIENT WAS FASTINGP ERFORMED BY: [facility]6370 [facility] [id number] Protein Ql (U) Negative Normal Comprehens shanta Internal Medicine; [facility] Work Phone: Specific gravity Relative Density (U) 1.014 1 Normal 1.005-1.03 0 [facility] Work Phone: Comment on above: PATIENT WAS FASTINGP ERFORMED BY: [facility]6370 [facility] [id number] Urobilinogen (U) [Mass/Vol] 0.2 mg/dL Normal 0.2-1.0 [facility]; [facility] Work Phone: Urobilinogen Test strip mass conc (U) 0.2 mg/dL Normal 0.2-1.0 Comprehensiv e Internal Medicine Work Phone: Comment on above: PATIENT WAS FASTINGP ERFORMED BY: [facility]6370 [facility] [id number] CBC W/Diff, AutomatedOrdered By: Coil Maker on 09-12-2018 Absolute Neut 1.5 {X10_3/uL} Abnormal 2.0-7.7 Compreh ensive Internal Medicine Work Phone: Comment on above: [facility] [address] [place], [place], [address] Basophils/100 WBC (Bld) 0.4 % Normal 0-1 [facility] Work Phone: Comment on above: [facility] [address] [place], [address] Eosinophils/100 WBC (Bld) 0.4 % Normal 0-5 [facility] Work Phone: Comment on above: [facility] [address] [place], [address] Erythrocyte distribution width Ratio (RBC) 12.5 % Normal 11.6-14.6 [facility] Work Phone: Comment on above: [facility] [address] [place], [address] Hematocrit Volume Fraction (Bld) 39.3 % Normal 37-47 [facility] Work Phone: Comment on above: [facility] [address] [place], [address] Hemoglobin mass conc (Bld) 13.0 g/dL Normal 12.0-15.0 [facility] Work Phone: Comment on above: [facility] [address] [place], [address] IM GRAN % 0.000 % Normal 0.0-0.9 [facility] Work Phone: Comment on above: IG% - Immature Granu locytes (promyelocytes, myelocytes andmetamyelocytes) > 1% indicates that a LEFT SHIFT is Present. [facility] [address] [place], [address] Lymphocytes #/vol (Bld) 0.77 {X10_3/ul} Abnormal 0.83-4.51 [facility] Work Phone: Comment on above: [facility] [address] [place], [address] Lymphocytes/100 WBC (Bld) 28.6 % Normal 19-41 [facility] Work Phone: Comment on above: [facility] [address] [place], [address] MCH Entitic mass (RBC) 30.0 pg Normal 27.0-32.0 [facility] Work Phone: Comment on above: [facility] [address] [place], [address] MCHC mass conc (RBC) 33.1 {g/gl} Normal 32-36 Com prehensive Internal Medicine Work Phone: Comment on above: [facility] [address] [place], [address] MCV Entitic volume (RBC) 90.8 fL Normal 81-99 [facility] Work Phone: Comment on above: [facility] [address] [place], [address] Monocytes/100 WBC (Bld) 14.9 % Abnormal 0-10 [facility] Work Phone: Comment on above: [facility] [address] [place], [address] Neutrophils/100 WBC (Bld) 55.7 % Normal 47-70 [facility] Work Phone: Comment on above: [facility] [address] [place], [address] Platelet mean volume Entitic volume (Bld) 11.6 fL Normal 6.2-12.0 Comprehensi Internal Medicine Work Phone: Comment on above: [facility] [address] [place], [address] Platelets #/vol (Bld) 131 10*3/uL Abnormal 150-450 [facility] childrenensive Internal [facility] Work Phone: Comment on above: [facility] [address] [place], [address] RBC #/vol (Bld) 4.33 {M/mm3} Normal 4.2-5.4 Compreh ensive Internal Medicine Work Phone: Comment on above: [facility] [address] [place], [place], [id number] RDW SD 41.4 fL Normal 35.1-43.9 [facility] Work Phone: Comment on above: [facility] [address] [place], [place], [id number] WBC #/vol (Bld) 2.7 10*3/uL Abnormal 4.4-11.0 Comprehe nsive Internal Medicine Work Phone: Comment on above: [facility] [address] [place], [place], [address] Comprehensive Metabolic Prof ilOrdered By: Coil Maker on 09-12-2018 Comprehensive metabolic 2000 panel 8.7 mg/dL Normal 8.5-10.1 Comprehensi ve Internal Medicine Work Phone: Comment on above: [facility] [address] [place], [place], [id number] Comprehensive metabolic 2000 panel 25 U/L Normal 15-37 Comprehensi ve Internal Medicine Work Phone: Comment on above: [facility] [address] [place], [place], [address] Comprehensive metabolic 2000 panel 7.6 g/dL Normal 6.4-8.2 Comprehensi ve Internal Medicine Work Phone: Comment on above: [facility] [address] [place], [place], [address] Comprehensive metabolic 2000 panel 18.9 {RATIO} Normal 10-20 Comprehensi ve Internal Medicine Work Phone: Comment on above: [facility] [address] [place], [place], [id number] Comprehensive metabolic 2000 panel 83 U/L Normal 45-117 Comprehensi ve Internal Medicine Work Phone: Comment on above: [facility] [address] [place], [address] Comprehensive metabolic 2000 panel 23 U/L Normal 13-56 Comprehensi ve Internal Medicine Work Phone: Comment on above: [facility] [address] [place], [address] Comprehensive metabolic 2000 panel 0.40 mg/dL Normal 0.20-1.00 Comprehensi ve Internal Medicine Work Phone: Comment on above: [facility] [address] [place], [address] Comprehensive metabolic 2000 panel 137 mmol/L Normal 136-145 Comprehensi ve Internal Medicine Work Phone: Comment on above: [facility] [address] [place], [address] Comprehensive metabolic 2000 panel 4.2 mmol/L Normal 3.5-5.1 Comprehensi ve Internal Medicine Work Phone: Comment on above: [facility] [address] [place], [place], [address] Comprehensive metabolic 2000 panel 104 mmol/L Normal 98-107 Comprehensi ve Internal Medicine Work Phone: Comment on above: [facility] [address] [place], [address] Comprehensive metabolic 2000 panel 26.0 mmol/L Normal 21.0-32.0 Comprehensi ve Internal Medicine Work Phone: Comment on above: [facility] [address] [place], [address] Comprehensive metabolic 2000 panel 7 1 Normal 5-15 Comprehensi ve Internal Medicine Work Phone: Comment on above: [facility] [address] [place], [address] Comprehensive metabolic 2000 panel 88 mg/dL Normal 74-106 Comprehensi ve Internal Medicine Work Phone: Comment on above: Please note revised GLUCOSE reference range yerrzszaw37/02/2018. [facility] [address] [place], [place], [phone] Comprehensive metabolic 2000 panel 3.9 g/dL Normal 3.2-5.0 Comprehensi ve Internal Medicine Work Phone: Comment on above: [facility] [address] [place], [place], [address] Comprehensive metabolic 2000 panel 1.1 {RATIO} Normal 0.9-2.4 Comprehensi ve Internal Medicine Work Phone: Comment on above: [facility] [address] [place], [place], [address] Comprehensive metabolic 2000 panel 65 mL/min Normal Comprehensi ve Internal Medicine Work Phone: Comment on above: GFR Calc [facility] [address] [place], [place], [address] Comprehensive metabolic 2000 panel 54 mL/min Abnormal Comprehensi ve Internal Medicine Work Phone: Comment on above: Non- GFR Calc [facility] [address] [place], [place], [address] Comprehensive metabolic 2000 panel 20 mg/dL Abnormal 7-18 Comprehensi ve Internal Medicine Work Phone: Comment on above: [facility] [address] [place], [place], [address] Comprehensive metabolic 2000 panel 3.7 g/dL Normal 2.2-4.2 Comprehensi ve Internal Medicine Work Phone: Comment on above: [facility] [address] [place], [place], [address] Comprehensive metabolic 2000 panel 1.06 mg/dL Abnormal 0.55-1.02 Comprehensi ve Internal Medicine Work Phone: Comment on above: The validity of the calculated GFR AND GFRAA in patients over70 years has not been determined. Clinical correlation isessential. [facility] [address] [place], [place], [phone] Influenza A&B Viral Culture ([id number])Ordered By: Coil Maker on 09-12-2018 FLUV identified Org specific cx Nom (Unsp spec) PFLUA Abnormal [facility] Work Phone: Comment on above: PositiveInfluenza A detected.. PATIENT NOT FASTINGP ERFORMED BY: ALEX [facility] Ehgelg[address] Dolosysin [place] [id number] Information: SRC: URINE JASON CULTURE-IDENTIFICA [place] ([id number])Ordered By: Coil Maker on 09-12-2018 Bacteria identified Cx Nom (U) Final report Normal [facility] Work Phone: Comment on above: PATIENT NOT FASTINGP ERFORMED BY: ALEX [facility] Eltiof6308 [address] DolosysUNC Health Johnston [id number] Information: SRC:AMY Bacteria identified Cx Nom (U) NG36 Normal [facility] Work Phone: Comment on above: No growth in 36 - 48 hours. PATIENT NOT FASTINGP ERFORMED BY: [facility] Eovxup[address] [place] [id number] Information: SRC:AMY Urinalysis, Office ([id number])Or dered By: William Robertson on 09-12-2018 Bilirubin [...] [facility] Work Phone: Urinalysis, Office ([id number])Or dered By: William Lara on 09-12-2018 Bilirubin [...] Medicine; [facility] Work Phone: CALCIFEDIOL ([id number])Ordered B y: Coil Maker on 12-13-2017 25-Hydroxyvitamin D2+25-Hydroxyvitamin D3 mass conc 36.7 ng/mL Normal 30.0-100.0 [facility] Work Phone: Comment on above: Vitamin D deficiency has been defined by the [place] ofMedicine and an Endocrine Society practice guideline as alevel of serum 25-OH vitamin D less than 20 ng/mL (1,2).The Endocrine Society went on to further define vitamin Dinsufficiency as a level between 21 and 29 ng/mL (2).1. IOM ([place] of Medicine). 2010. Dietary reference intakes for calcium and D. [place]: The National Academies Press.2. Arcelia MF, Anastacio [place], Galina-Jamari RODRÍGUEZ, et al. Evaluation, treatment, and prevention of vitamin D deficiency: an Endocrine Society clinical practice guideline. JCEM. 2010; 96(7):1911-30. PATIENT WAS FASTINGP ERFORMED BY: LabCoSaint Clare's Hospital at SussexUovpza5816 [facility] [id number] CBC, Platelets & Auto Diff ( [id number])Ordered By: Coil Maker on 12-13-2017 Basophils #/vol (Bld) 0.0 {x10E3/uL} Normal 0.0-0.2 [facility] Work Phone: Comment on above: PATIENT WAS FASTINGP ERFORMED BY: [place] 9532370 [facility] [id number] Basophils (Bld) [#/Vol] 0.0 10*3/uL Normal 0.0-0.2 [facility]; [facility] Work Phone: Basophils Auto #/vol (Bld) 0.0 {x10E3/uL} Normal 0.0-0.2 [facility] Work Phone: Basophils/100 WBC (Bld) 1 % Normal [facility] Work Phone: Comment on above: PATIENT WAS FASTINGP ERFORMED BY: [employer] [id number] Basophils/100 WBC Auto (Bld) 1 % Normal [facility] Work Phone: Eosinophils #/vol (Bld) 0.3 {x10E3/uL} Normal 0.0-0.4 [facility] Work Phone: Comment on above: PATIENT WAS FASTINGP ERFORMED BY: [employer] TechnologiesShannon [place] 8[address]1070 [facility] [id number] Eosinophils (Bld) [#/Vol] 0.3 10*3/uL Normal 0.0-0.4 [facility]; [facility] Work Phone: Eosinophils Auto #/vol (Bld) 0.3 {x10E3/uL} Normal 0.0-0.4 [facility] Work Phone: Eosinophils/100 WBC (Bld) 10 % Normal [facility] Work Phone: Comment on above: PATIENT WAS FASTINGP ERFORMED BY: [facility] Medical CenterPacejet Logistics[address] [id number] Eosinophils/100 WBC Auto (Bld) 10 % Normal [facility] Work Phone: Erythrocyte distribution width Auto Ratio (RBC) 13.8 % Normal 12.3-15.4 [facility] Work Phone: Erythrocyte distribution width Ratio (RBC) 13.8 % Normal 12.3-15.4 [facility] Work Phone: Comment on above: PATIENT WAS FASTINGP ERFORMED BY: ALEX [facility] Yakqtc2592 [facility] [id number] Hematocrit Auto Volume Fraction (Bld) 35.2 % Normal 34.0-46.6 [facility] Internal Medicine Work Phone: Hematocrit Volume Fraction (Bld) 35.2 % Normal 34.0-46.6 [facility] Work Phone: Comment on above: PATIENT WAS FASTINGP ERFORMED BY: ALEX Manleylin6370 [facility] [id number] Hemoglobin mass conc (Bld) 11.5 g/dL Normal 11.1-15.9 [facility] Work Phone: Comment on above: PATIENT WAS FASTINGP ERFORMED BY: ALEX [facility] Ctqtrx0426 [facility] [id number] Immature granulocytes #/vol (Bld) 0.0 {x10E3/uL} Normal 0.0-0.1 [facility] Work Phone: Comment on above: PATIENT WAS FASTINGP ERFORMED BY: ALEX [facility] Haoqga6314 [facility] [id number] Immature granulocytes (Bld) [#/Vol] 0.0 10*3/uL Normal 0.0-0.1 [facility]; [facility] Work Phone: Immature granulocytes/100 WBC (Bld) 0 % Normal [facility] Work Phone: Comment on above: PATIENT WAS FASTINGP ERFORMED BY: ALEX [facility]6370 [facility] [id number] Lymphocytes #/vol (Bld) 1.4 {x10E3/uL} Normal 0.7-3.1 [facility] Work Phone: Comment on above: PATIENT WAS FASTINGP ERFORMED BY: ALEX [facility]6370 [facility] [id number] Lymphocytes (Bld) [#/Vol] 1.4 10*3/uL Normal 0.7-3.1 [facility]; [facility] Work Phone: Lymphocytes Auto #/vol (Bld) 1.4 {x10E3/uL} Normal 0.7-3.1 [facility] Work Phone: Lymphocytes/100 WBC (Bld) 40 % Normal [facility] Work Phone: Comment on above: PATIENT WAS FASTINGP ERFORMED BY: ALEX [facility]6370 [facility] [id number] Lymphocytes/100 WBC Auto (Bld) 40 % Normal [facility] Work Phone: MCH Auto Entitic mass (RBC) 29.5 pg Normal 26.6-33.0 [facility] Work Phone: MCH Entitic mass (RBC) 29.5 pg Normal 26.6-33.0 [facility] Work Phone: Comment on above: PATIENT WAS FASTINGP ERFORMED BY: ALEX [facility]6370 [facility] [id number] MCHC Auto mass conc (RBC) 32.7 g/dL Normal 31.5-35.7 [facility] Work Phone: MCHC mass conc (RBC) 32.7 g/dL Normal 31.5-35.7 Comp [facility] Internal Medicine Work Phone: Comment on above: PATIENT WAS FASTINGP ERFORMED BY: ALEX [facility]6370 [facility] [id number] MCV Auto Entitic volume (RBC) 90 fL Normal 79-97 [facility] Work Phone: MCV Entitic volume (RBC) 90 fL Normal 79-97 [facility] Work Phone: Comment on above: PATIENT WAS FASTINGP ERFORMED BY: ALEX [place] [id number] [facility] [id number] Monocytes #/vol (Bld) 0.1 {x10E3/uL} Normal 0.1-0.9 [facility] Work Phone: Comment on above: PATIENT WAS FASTINGP ERFORMED BY: ALEX Manleylin6370 [facility] [id number] Monocytes (Bld) [#/Vol] 0.1 10*3/uL Normal 0.1-0.9 [facility]; [facility] Work Phone: Monocytes Auto #/vol (Bld) 0.1 {x10E3/uL} Normal 0.1-0.9 [facility] Work Phone: Monocytes/100 WBC (Bld) 3 % Normal [facility] Work Phone: Comment on above: PATIENT WAS FASTINGP ERFORMED BY: ALEX Manleylin6370 [facility] [id number] Monocytes/100 WBC Auto (Bld) 3 % Normal [facility] Work Phone: Neutrophils #/vol (Bld) 1.6 {x10E3/uL} Normal 1.4-7.0 [facility] Work Phone: Comment on above: PATIENT WAS FASTINGP ERFORMED BY: ALEX Manleylin6370 [facility] [id number] Neutrophils (Bld) [#/Vol] 1.6 10*3/uL Normal 1.4-7.0 [facility]; [facility] Work Phone: Neutrophils Auto #/vol (Bld) 1.6 {x10E3/uL} Normal 1.4-7.0 [facility] Work Phone: Neutrophils/100 WBC (Bld) 46 % Normal [facility] Work Phone: Comment on above: PATIENT WAS FASTINGP ERFORMED BY: ALEX [place] [id number] [facility] [id number] Neutrophils/100 WBC Auto (Bld) 46 % Normal [facility] Work Phone: Platelets #/vol (Bld) 202 {x10E3/uL} Normal 150-379 [facility] Work Phone: Comment on above: PATIENT WAS FASTINGP ERFORMED BY: [place] [id number] [facility] [id number] Platelets (Bld) [#/Vol] 202 10*3/uL Normal 150-379 [facility]; [facility] Work Phone: Platelets Auto #/vol (Bld) 202 {x10E3/uL} Normal 150-379 [facility] Work Phone: RBC #/vol (Bld) 3.90 {x10E6/uL} Normal 3.77-5.28 [facility] Work Phone: Comment on above: PATIENT WAS FASTINGP ERFORMED BY: [facility]6370 [facility] [id number] RBC (Bld) [#/Vol] 3.90 10*6/uL Normal 3.77-5.28 Compr ensive Internal Medicine; [facility] Work Phone: RBC Auto #/vol (Bld) 3.90 {x10E6/uL} Normal 3.77-5.28 [facility] Work Phone: WBC #/vol (Bld) 3.4 {x10E3/uL} Normal 3.4-10.8 Compr ensive Internal Medicine Work Phone: Comment on above: PATIENT WAS FASTINGP ERFORMED BY: [place] [id number] [facility] [id number] WBC (Bld) [#/Vol] 3.4 10*3/uL Normal 3.4-10.8 Compre [facility] Internal Medicine; [facility] Work Phone: WBC Auto #/vol (Bld) 3.4 {x10E3/uL} Normal 3.4-10.8 [facility] Work Phone: LIPID PANEL ([id number])Ordered B y: Coil Maker on 12-13-2017 Cholesterol in HDL mass conc 72 mg/dL Normal [facility] Work Phone: Comment on above: PATIENT WAS FASTINGP ERFORMED BY: ALEX [facility] Xdvhbw8621 [address] RoadDublin [place] [id number] Cholesterol in LDL mass conc 101 mg/dL Abnormal 0-99 [facility] Work Phone: Comment on above: PATIENT WAS FASTINGP ERFORMED BY: ALEX LabCodaniella ManleyGmblyp9038 Avila RoadDublin [place] [id number] Cholesterol in LDL/Cholesterol in HDL mass ratio 1.4 {ratio} Normal 0.0-3.2 [facility] Work Phone: Comment on above: LDL/HDL Ratio Men Wo men 1/2 Avg.Risk 1.0 1.5 Avg.Risk 3.6 3.2 2X Avg.Risk 6.2 5.0 3X Avg.Risk 8.0 6.1 PATIENT WAS FASTINGP ERFORMED BY: ALEX LabTravis ManleyXyzaav9840 [address]ila RoadDublin [place] [id number] Cholesterol in VLDL mass conc 9 mg/dL Normal 5-40 [facility] Work Phone: Comment on above: PATIENT WAS FASTINGP ERFORMED BY: ALEX LabCodaniella Lhuxxc5416 [address] RoadDublin [place] [id number] Cholesterol mass conc 182 mg/dL Normal 100-199 [facility] prehensive Internal Medicine Work Phone: Comment on above: PATIENT WAS FASTINGP ERFORMED BY: ALEX LabCodaniella ManleyGfocag0396 [address] RoadDublin [place] [id number] Triglyceride mass conc 43 mg/dL Normal 0-149 [facility] Work Phone: Comment on above: PATIENT WAS FASTINGP ERFORMED BY: ALEX [facility] Dpufhx8062 [address] RoadDublin [place] [id number] Metabolic Panel, Comprehensi ve ([id number])Ordered By: Coil Maker on 12-13-2017 Albumin mass conc 4.3 g/dL Normal 3.5-4.8 Compreh ensive Internal Medicine Work Phone: Comment on above: PATIENT WAS FASTINGP ERFORMED BY: ALEX [facility] Ocmeag9212 [address] RoadDublin [place] [id number] Albumin/Globulin mass ratio 1.7 {ratio} Normal 1.2-2.2 [facility] Internal Medicine Work Phone: Comment on above: PATIENT WAS FASTINGP ERFORMED BY: ALEX AjithTravis ManleyIwtyre2582 [address] RoadDublin [place] [id number] ALP [Catalytic activity/Vol] 79 U/L Normal 39-117 [facility]; [facility] Internal Medicine Work Phone: ALP enzyme act/vol 79 [iU]/L Normal 39-117 [facility] Internal Medicine Work Phone: Comment on above: PATIENT WAS FASTINGP ERFORMED BY: ALEX [facility]Scot[facility] Wkejzm9226 [address] Roadblin [place] [id number] ALT [Catalytic activity/Vol] 9 U/L Normal 0-32 [facility]; [facility] Internal Medicine Work Phone: ALT enzyme act/vol 9 [iU]/L Normal 0-32 [facility] Internal Medicine Work Phone: Comment on above: PATIENT WAS FASTINGP ERFORMED BY: ALEX [facility] Apaxhi3827 [address] RoadCritical Access Hospitalin [place] [id number] AST [Catalytic activity/Vol] 12 U/L Normal 0-40 [facility] Internal Medicine; [facility] Internal Medicine Work Phone: AST enzyme act/vol 12 [iU]/L Normal 0-40 [facility] Internal Medicine Work Phone: Comment on above: PATIENT WAS FASTINGP ERFORMED BY: ALEX Lopez Awkjcb[address] [facility]in [place] [id number] Bilirubin mass conc 0.4 mg/dL Normal 0.0-1.2 [facility] Internal Medicine Work Phone: Comment on above: PATIENT WAS FASTINGP ERFORMED BY: ALEX LabCo Dpyoru4825 [address] RoadDublin [place] [id number] Calcium mass conc 9.3 mg/dL Normal 8.7-10.3 [facility] Internal Medicine Work Phone: Comment on above: PATIENT WAS FASTINGP ERFORMED BY: ALEX [facility]Sc[facility] Hcwpys6072 [address] RoadDublin [place] [id number] Chloride molar conc 104 mmol/L Normal 96-106 Compr ensive Internal Medicine Work Phone: Comment on above: PATIENT WAS FASTINGP ERFORMED BY: CB [facility] Xnunkh[address] [facility]bl[facility] [place] [id number] CO2 molar conc 22 mmol/L Normal 18-29 [...] 19 - 27 >12 years 20 - - PATIENT WAS FASTINGP ERFORMED BY: CB [facility] Ktwzld6610 [facility] [id number] Creatinine mass conc 0.84 mg/dL Normal 0.57-1.00 Comp [facility] Work Phone: Comment on above: PATIENT WAS FASTINGP ERFORMED BY: CB [facility] Ppljev[address] [facility]in [place] [id number] GFR/1.73 sq M predicted among blacks CKD-EPI vol rate/area (S/P/Bld) 80 mL/min/1.73 Normal Comprehensiv e Internal Medicine Work Phone: Comment on above: PATIENT WAS FASTINGP ERFORMED BY: CB [facility] Azicca[address] [facility]in [place] [id number] GFR/1.73 sq M predicted among non-blacks CKD-EPI vol rate/area (S/P/Bld) 70 mL/min/1.73 Normal [facility] Work Phone: Comment on above: PATIENT WAS FASTINGP ERFORMED BY: CB [facility] Zbgfac[address] [facility]in [place] [id number] Globulin Calculated mass conc (S) 2.6 g/dL Normal 1.5-4.5 [facility] Work Phone: Globulin mass conc (S) 2.6 g/dL Normal 1.5-4.5 [facility] Work Phone: Comment on above: PATIENT WAS FASTINGP ERFORMED BY: ALEX LabTravis ManleyUszioz7694 [address] Roadblin [place] [id number] Glucose mass conc 88 mg/dL Normal 65-99 Compreh ensive Internal Medicine Work Phone: Comment on above: PATIENT WAS FASTINGP ERFORMED BY: ALEX Villegas6[address] RoadCritical Access Hospitalin [place] [id number] Potassium molar conc 4.5 mmol/L Normal 3.5-5.2 Comp rehensive Internal Medicine Work Phone: Comment on above: PATIENT WAS FASTINGP ERFORMED BY: ALEX Manleylin6370 [address]bl[address] [place] [id number] Protein mass conc 6.9 g/dL Normal 6.0-8.5 Compreh ensive Internal Medicine Work Phone: Comment on above: PATIENT WAS FASTINGP ERFORMED BY: ALEX Manleylin[address] [facility] [id number] Sodium molar conc 142 mmol/L Normal 134-144 Compreh ensive Internal Medicine Work Phone: Comment on above: PATIENT WAS FASTINGP ERFORMED BY: ALEX Villegas[address] [facility] [id number] Urea nitrogen mass conc 19 mg/dL Normal 8-27 [facility] Work Phone: Comment on above: PATIENT WAS FASTINGP ERFORMED BY: ALEX Manleylin[address] [facility] [id number] Urea nitrogen/Creatinine mass ratio 23 mg/mg Normal 12-28 [facility] Work Phone: Comment on above: PATIENT WAS FASTINGP ERFORMED BY: ALEX LabTravis Ooqfiu[address] [facility]in [place] [id number] TSH ([id number])Ordered By: Sita Grewal on 12-13-2017 Thyrotropin Qn 2.460 {uIU/mL} Normal 0.450-4.50 0 [facility] Work Phone: Comment on above: PATIENT WAS FASTINGP ERFORMED BY: ALEX Manleylin6370 [facility] [id number] CBC, Platelets & Auto Diff ( [id number])Ordered By: Coil Maker on 04-03-2017 Basophils #/vol (Bld) 0.0 {x10E3/uL} Normal 0.0-0.2 [facility] Work Phone: Comment on above: mar 2017; PATIENT W FASTINGPERFORMED BY: [place] [id number] [facility] [id number] Basophils (Bld) [#/Vol] 0.0 10*3/uL Normal 0.0-0.2 [facility]; [facility] Work Phone: Basophils Auto #/vol (Bld) 0.0 {x10E3/uL} Normal 0.0-0.2 [facility] Work Phone: Basophils/100 WBC (Bld) 1 % Normal [facility] Work Phone: Comment on above: mar 2017; PATIENT W FASTINGPERFORMED BY: [facility] CenterPacejet LogisticsShannon Ville [id number] [facility] [id number] Basophils/100 WBC Auto (Bld) 1 % Normal [facility] Work Phone: Eosinophils #/vol (Bld) 0.2 {x10E3/uL} Normal 0.0-0.4 [facility] Work Phone: Comment on above: mar 2017; PATIENT W FASTINGPERFORMED BY: [place] [id number] [facility] [id number] Eosinophils (Bld) [#/Vol] 0.2 10*3/uL Normal 0.0-0.4 [facility]; [facility] Work Phone: Eosinophils Auto #/vol (Bld) 0.2 {x10E3/uL} Normal 0.0-0.4 [facility] Work Phone: Eosinophils/100 WBC (Bld) 6 % Normal [facility] Work Phone: Comment on above: mar 2017; PATIENT W FASTINGPERFORMED BY: [facility] [facility] [id number] Eosinophils/100 WBC Auto (Bld) 6 % Normal [facility] Work Phone: Erythrocyte distribution width Auto Ratio (RBC) 13.8 % Normal 12.3-15.4 [facility] Work Phone: Erythrocyte distribution width Ratio (RBC) 13.8 % Normal 12.3-15.4 [facility] Work Phone: Comment on above: mar 2017; PATIENT W FASTINGPERFORMED BY: Tactonic TechnologiesShannon Ville [id number] [facility] [id number] Hematocrit Auto Volume Fraction (Bld) 35.4 % Normal 34.0-46.6 [facility] Internal Medicine Work Phone: Hematocrit Volume Fraction (Bld) 35.4 % Normal 34.0-46.6 [facility] Work Phone: Comment on above: mar 2017; PATIENT W FASTINGPERFORMED BY: Tactonic TechnologiesSaint Clare's Hospital at SussexIugnqp6213 [facility] [id number] Hemoglobin mass conc (Bld) 12.2 g/dL Normal 11.1-15.9 [facility] Work Phone: Comment on above: mar 2017; PATIENT W FASTINGPERFORMED BY: Tactonic TechnologiesSaint Clare's Hospital at SussexKrekcx2287 [facility] [id number] Immature granulocytes #/vol (Bld) 0.0 {x10E3/uL} Normal 0.0-0.1 [facility] Work Phone: Comment on above: mar 2017; PATIENT W FASTINGPERFORMED BY: Tactonic TechnologiesSaint Clare's Hospital at SussexSkrqkf0608 [facility] [id number] Immature granulocytes (Bld) [#/Vol] 0.0 10*3/uL Normal 0.0-0.1 [facility]; [facility] Work Phone: Immature granulocytes/100 WBC (Bld) 0 % Normal [facility] Work Phone: Comment on above: mar 2017; PATIENT W FASTINGPERFORMED BY: [facility]Up [facility]6370 [facility] [id number] Lymphocytes #/vol (Bld) 1.5 {x10E3/uL} Normal 0.7-3.1 [facility] Work Phone: Comment on above: mar 2017; PATIENT W FASTINGPERFORMED BY: [facility]6370 [facility] [id number] Lymphocytes (Bld) [#/Vol] 1.5 10*3/uL Normal 0.7-3.1 [facility]; [facility] Work Phone: Lymphocytes Auto #/vol (Bld) 1.5 {x10E3/uL} Normal 0.7-3.1 [facility] Work Phone: Lymphocytes/100 WBC (Bld) 41 % Normal [facility] Work Phone: Comment on above: mar 2017; PATIENT W FASTINGPERFORMED BY: [facility] Medical CenterPacejet LogisticsShannon Ville [id number] [facility] [id number] Lymphocytes/100 WBC Auto (Bld) 41 % Normal [facility] Work Phone: MCH Auto Entitic mass (RBC) 29.9 pg Normal 26.6-33.0 [facility] Work Phone: MCH Entitic mass (RBC) 29.9 pg Normal 26.6-33.0 [facility] Work Phone: Comment on above: mar 2017; PATIENT W FASTINGPERFORMED BY: [facility]6370 [facility] [id number] MCHC Auto mass conc (RBC) 34.5 g/dL Normal 31.5-35.7 [facility] Work Phone: MCHC mass conc (RBC) 34.5 g/dL Normal 31.5-35.7 [facility] Internal Medicine Work Phone: Comment on above: mar 2017; PATIENT W FASTINGPERFORMED BY: [facility]6370 [facility] [id number] MCV Auto Entitic volume (RBC) 87 fL Normal 79-97 [facility] Work Phone: MCV Entitic volume (RBC) 87 fL Normal 79-97 [facility] Work Phone: Comment on above: mar 2017; PATIENT W FASTINGPERFORMED BY: Tactonic TechnologiesUnion County General HospitalIusdel5514 AvilaGreenscreen AnimalsNovant Health Ballantyne Medical Center [id number] Monocytes #/vol (Bld) 0.2 {x10E3/uL} Normal 0.1-0.9 [facility] Work Phone: Comment on above: mar 2017; PATIENT W FASTINGPERFORMED BY: [employer] Xirywv[address] Thoughtful MoversNovant Health Ballantyne Medical Center [id number] Monocytes (Bld) [#/Vol] 0.2 10*3/uL Normal 0.1-0.9 [facility]; [facility] Work Phone: Monocytes Auto #/vol (Bld) 0.2 {x10E3/uL} Normal 0.1-0.9 [facility] Work Phone: Monocytes/100 WBC (Bld) 5 % Normal [facility] Work Phone: Comment on above: mar 2017; PATIENT W FASTINGPERFORMED BY: [employer] Wwtzak[address] Thoughtful MoversNovant Health Ballantyne Medical Center [id number] Monocytes/100 WBC Auto (Bld) 5 % Normal [facility] Work Phone: Neutrophils #/vol (Bld) 1.6 {x10E3/uL} Normal 1.4-7.0 [facility] Work Phone: Comment on above: mar 2017; PATIENT W FASTINGPERFORMED BY: Tactonic TechnologiesShannon Ville [id number] [address] Thoughtful MoversNovant Health Ballantyne Medical Center [id number] Neutrophils (Bld) [#/Vol] 1.6 10*3/uL Normal 1.4-7.0 [facility]; [facility] Work Phone: Neutrophils Auto #/vol (Bld) 1.6 {x10E3/uL} Normal 1.4-7.0 [facility] Work Phone: Neutrophils/100 WBC (Bld) 47 % Normal [facility] Work Phone: Comment on above: mar 2017; PATIENT W FASTINGPERFORMED BY: ALEX AjithTravis ManleyRfimqf0104 [facility] [id number] Neutrophils/100 WBC Auto (Bld) 47 % Normal [facility] Work Phone: Platelets #/vol (Bld) 208 {x10E3/uL} Normal 150-379 [facility] Work Phone: Comment on above: mar 2017; PATIENT W FASTINGPERFORMED BY: ALEX LabCoSaint Clare's Hospital at SussexCbrqat3522 [facility] [id number] Platelets (Bld) [#/Vol] 208 10*3/uL Normal 150-379 [facility]; [facility] Work Phone: Platelets Auto #/vol (Bld) 208 {x10E3/uL} Normal 150-379 [facility] Work Phone: RBC #/vol (Bld) 4.08 {x10E6/uL} Normal 3.77-5.28 [facility] Internal Medicine Work Phone: Comment on above: mar 2017; PATIENT W FASTINGPERFORMED BY: ALEX Manleylin6370 [facility] [id number] RBC (Bld) [#/Vol] 4.08 10*6/uL Normal 3.77-5.28 [facility] Childrenensive [facility]; [facility] Work Phone: RBC Auto #/vol (Bld) 4.08 {x10E6/uL} Normal 3.77-5.28 [facility] Work Phone: WBC #/vol (Bld) 3.6 {x10E3/uL} Normal 3.4-10.8 [facility] Internal Medicine Work Phone: Comment on above: mar 2017; PATIENT W FASTINGPERFORMED BY: ALEX [facility]6370 [facility] [id number] WBC (Bld) [#/Vol] 3.6 10*3/uL Normal 3.4-10.8 [facility] Internal Medicine; [facility] Work Phone: WBC Auto #/vol (Bld) 3.6 {x10E3/uL} Normal 3.4-10.8 [facility] Work Phone: Lipid Panel ([id number])Ordered B y: Coil Maker on 04-03-2017 Cholesterol in HDL mass conc 86 mg/dL Normal [facility] Work Phone: Comment on above: mar 2017; PATIENT W FASTINGPERFORMED BY: CB [facility] Dcyivv[address] Thoughtful MoversDublin [place] [id number]; OV 9 Cholesterol in LDL mass conc 113 mg/dL Abnormal 0-99 [facility] Work Phone: Comment on above: mar 2017; PATIENT W FASTINGPERFORMED BY: CB [facility] Fsbizs[address] Thoughtful MoversDuin [place] [id number]; OV 9 Cholesterol in LDL/Cholesterol in HDL mass ratio 1.3 {ratio_units} Normal 0.0-3.2 [facility] Work Phone: Comment on above: LDL/HDL Ratio Men Wo men 1/2 Avg.Risk 1.0 1.5 Avg.Risk 3.6 3.2 2X Avg.Risk 6.2 5.0 3X Avg.Risk 8.0 6.1 mar 2017; PATIENT W FASTINGPERFORMED BY: CB [facility] Yidyof[address] Thoughtful MoversCincinnati [place] [id number]; OV 9 Cholesterol in VLDL mass conc 13 mg/dL Normal 5-40 [facility] Work Phone: Comment on above: mar 2017; PATIENT W FASTINGPERFORMED BY: CB [facility] Oadrof3547 [address] RoadDublin [place] [id number]; OV 9/ Cholesterol mass conc 212 mg/dL Abnormal 100-199 Com prehensive Internal Medicine Work Phone: Comment on above: mar 2017; PATIENT W FASTINGPERFORMED BY: CB [facility] Skvfyn6980 [address] RoadDublin [place] [id number]; OV 9/ Triglyceride mass conc 64 mg/dL Normal 0-149 [facility] Work Phone: Comment on above: mar 2017; PATIENT W FASTINGPERFORMED BY: ALEX [facility] Rguvus5218 [address] RoadDublin [place] [id number]; OV 04/12 MICROALBUMINOrdered By: Syst em Senior Game Developer on 04-03-2017 Albumin DL <= 20 mg/L mass conc (U) 4.9 ug/mL Normal [facility] Work Phone: Comment on above: mar 2017; PATIENT W FASTINGPERFORMED BY: CB [facility] Aylgwp9843 [address] RoadDublin [place] [id number] Albumin/Creatinine mass ratio (U) 6.1 {mg/g_creat} Normal 0.0-30.0 [facility] Work Phone: Comment on above: mar 2017; PATIENT W FASTINGPERFORMED BY: LabPacejet Logistics Gdfsts1680 [address] RoadDublin [place] [id number] Creatinine mass conc (U) 79.9 mg/dL Normal [facility] Work Phone: Comment on above: mar 2017; PATIENT W FASTINGPERFORMED BY: ALEX [facility] Heqmlg[address]47 [address] [facility]in [place] [id number] Metabolic Panel, Comprehensi ve ([id number])Ordered By: Coil Maker on 04-03-2017 Albumin mass conc 4.5 g/dL Normal 3.5-4.8 Compreh ensive Internal Medicine Work Phone: Comment on above: mar 2017; PATIENT W FASTINGPERFORMED BY: LabPacejet Logistics Amgypx1868 [address] Roadblin [place] [id number] Albumin/Globulin mass ratio 1.5 {ratio} Normal 1.2-2.2 [facility] Work Phone: Comment on above: mar 2017; PATIENT W FASTINGPERFORMED BY: LabPacejet Logisticsrp Tmbzxr8478 [address] RoadDublin [place] [id number] ALP [Catalytic activity/Vol] 97 U/L Normal 39-117 [facility]; [facility] Work Phone: ALP enzyme act/vol 97 [iU]/L Normal 39-117 [facility] Internal Medicine Work Phone: Comment on above: mar 2017; PATIENT W FASTINGPERFORMED BY: CB [facility] Gqpanv9985 [address] RoadDublin [place] [id number] ALT [Catalytic activity/Vol] 13 U/L Normal 0-32 [facility]; [facility] Internal Medicine Work Phone: ALT enzyme act/vol 13 [iU]/L Normal 0-32 [facility] Internal Medicine Work Phone: Comment on above: mar 2017; PATIENT W FASTINGPERFORMED BY: CB [facility] Epucid3352 [address] RoadDublin [place] [id number] AST [Catalytic activity/Vol] 17 U/L Normal 0-40 [facility] Internal Medicine; [facility] Internal Medicine Work Phone: AST enzyme act/vol 17 [iU]/L Normal 0-40 [facility] Internal Medicine Work Phone: Comment on above: mar 2017; PATIENT W FASTINGPERFORMED BY: CB [facility] Ntdhdd6033 [address] RoadDublin [place] [id number] Bilirubin mass conc 0.6 mg/dL Normal 0.0-1.2 [facility] Internal Medicine Work Phone: Comment on above: mar 2017; PATIENT W FASTINGPERFORMED BY: CB [facility] Ebvtmc0855 [address] RoadDublin [place] [id number] Calcium mass conc 9.5 mg/dL Normal 8.7-10.3 [facility] Internal Medicine Work Phone: Comment on above: mar 2017; PATIENT W FASTINGPERFORMED BY: CB [facility] Dkrwjf7131 [address] RoadDublin [place] [id number] Chloride molar conc 102 mmol/L Normal 96-106 [facility] Internal Medicine Work Phone: Comment on above: mar 2017; PATIENT W FASTINGPERFORMED BY: CB [facility] Aseakk6465 [address] RoadDublin [place] [id number] CO2 molar conc 22 mmol/L Normal 18-29 Comprehens [facility] Internal Medicine Work Phone: Comment on above: mar 2017; PATIENT W FASTINGPERFORMED BY: CB [facility] Xyhnfr7647 [address]ila RoadDublin [place] [id number] Creatinine mass conc 0.89 mg/dL Normal 0.57-1.00 Comp rehensive Internal Medicine Work Phone: Comment on above: mar 2017; PATIENT W FASTINGPERFORMED BY: CB [facility] Bghjgi3746 [address] Roadblin [place] [id number] GFR/1.73 sq M predicted among blacks CKD-EPI vol rate/area (S/P/Bld) 75 mL/min/1.73 Normal Comprehensiv e Internal Medicine Work Phone: Comment on above: mar 2017; PATIENT W FASTINGPERFORMED BY: CB [facility] Tdklau3673 [address] RoadCritical Access Hospitalin [place] [id number] GFR/1.73 sq M predicted among non-blacks CKD-EPI vol rate/area (S/P/Bld) 65 mL/min/1.73 Normal [facility] Work Phone: Comment on above: mar 2017; PATIENT W FASTINGPERFORMED BY: [facility] Cttolo4067 [address] [facility] [place] [id number] Globulin Calculated mass conc (S) 3.1 g/dL Normal 1.5-4.5 [facility] Work Phone: Globulin mass conc (S) 3.1 g/dL Normal 1.5-4.5 [facility] Work Phone: Comment on above: mar 2017; PATIENT W FASTINGPERFORMED BY: [facility] Llyajx6416 [address] [facility] [place] [id number] Glucose mass conc 86 mg/dL Normal 65-99 Compreh ensive Internal Medicine Work Phone: Comment on above: mar 2017; PATIENT W FASTINGPERFORMED BY: CB [facility] Fmcbwz8504 [address] [facility] [place] [id number] Potassium molar conc 4.6 mmol/L Normal 3.5-5.2 Comp rehensive Internal Medicine Work Phone: Comment on above: mar 2017; PATIENT W FASTINGPERFORMED BY: ALEX [facility] Hmvdsq8933 [address] [facility]in [place] [id number] Protein mass conc 7.6 g/dL Normal 6.0-8.5 Compreh ensive Internal Medicine Work Phone: Comment on above: mar 2017; PATIENT W FASTINGPERFORMED BY: ALEX [facility] Rrpsxe3134 [address] [facility] [place] [id number] Sodium molar conc 143 mmol/L Normal 134-144 Compreh ensive Internal Medicine Work Phone: Comment on above: mar 2017; PATIENT W FASTINGPERFORMED BY: ALEX [facility] Slznph7695 [address] [facility] [id number] Urea nitrogen mass conc 17 mg/dL Normal 8-27 [facility] Work Phone: Comment on above: mar 2017; PATIENT W FASTINGPERFORMED BY: ALEX LabTravis ManleyAbowhc7[address] [facility]Nov[facility] [id number] Urea nitrogen/Creatinine mass ratio 19 mg/mg Normal 12- [facility] Work Phone: Comment on above: mar 2017; PATIENT W FASTINGPERFORMED BY: ALEX Manleylin6370 [facility] [id number] Microscopic ExaminationOrder ed By: Coil Maker on 04-03-2017 Bacteria LM.HPF #/area (Urine sed) Few Normal [facility] Work Phone: Comment on above: PATIENT WAS FASTINGP ERFORMED BY: ALEX [facility] Kdbuxu0948 [facility] [id number] Epithelial cells LM.HPF #/area (Urine sed) 0-10 Normal 0 - 10 [facility] Work Phone: Comment on above: PATIENT WAS FASTINGP ERFORMED BY: ALEX LabCodaniella ManleyMuoyvk7313 [facility] [id number] Mucus LM Ql (Urine sed) Present Normal [facility] Work Phone: Mucus Ql (Urine sed) Present Normal Comp rehensive Internal Medicine Work Phone: Comment on above: PATIENT WAS FASTINGP ERFORMED BY: ALEX [employer] Vjhiac7129 [address] RoadDublin [place] [id number] RBC LM.HPF #/area (Urine sed) 0-2 Normal 0 - 2 [facility] Work Phone: Comment on above: PATIENT WAS FASTINGP ERFORMED BY: [facility] Irwvqk0337 [address] RoadDublin [place] [id number] WBC LM.HPF #/area (Urine sed) 0-5 Normal 0 - 5 [facility] Work Phone: Comment on above: PATIENT WAS FASTINGP ERFORMED BY: [facility] Nuidts9184 [address] RoadDublin [place] [id number] URINALYSIS ([id number])Ordered By : Coil Maker on 04-03-2017 Appearance Nom (U) Clear Normal Compre hensive Internal Medicine Work Phone: Comment on above: mar 2017; PATIENT W FASTINGPERFORMED BY: [facility] Zcnktl8658 [address] RoadDublin [place] [id number] Bilirubin Ql (U) Negative Normal Comprehe nsive Internal Medicine Work Phone: Comment on above: mar 2017; PATIENT W FASTINGPERFORMED BY: [facility] Cjunev3074 [address] RoadDublin [place] [id number] Bilirubin Ql (U) Negative Normal Comprehe nsive Internal Medicine; [facility] Work Phone: Color Nom (U) Yellow Normal Comprehensi ve Internal Medicine Work Phone: Comment on above: mar 2017; PATIENT W FASTINGPERFORMED BY: [facility] Rpfmiy4372 [address] RoadDublin [place] [id number] Glucose Ql (U) Negative Normal Comprehens shanta Internal Medicine Work Phone: Comment on above: mar 2017; PATIENT W FASTINGPERFORMED BY: [facility] Tesoah1471 [address] RoadDublin [place] [id number] Glucose Ql (U) Negative Normal Comprehens shanta [facility]; [facility] Work Phone: Hemoglobin Ql (U) 2+ Abnormal Compreh ensive Internal Medicine Work Phone: Comment on above: mar 2017; PATIENT W FASTINGPERFORMED BY: ALEX [facility] Tsumju1307 [address] RoadDublin [place] [id number] Hemoglobin Test strip Ql (U) 2+ Abnormal [facility] Work Phone: Ketones Ql (U) Negative Normal Comprehens shanta [facility] Medicine Work Phone: Comment on above: mar 2017; PATIENT W FASTINGPERFORMED BY: ALEX [facility] Wloqky1498 [address] RoadDublin [place] [id number] Ketones Ql (U) Negative Normal Comprehens shanta [facility]; [facility] Work Phone: Leukocyte esterase Test strip Ql (U) Negative Normal [facility] Work Phone: Comment on above: mar 2017; PATIENT W FASTINGPERFORMED BY: ALEX [facility] Htpgmt0382 [address] RoadDublin [place] [id number] Leukocyte esterase Test strip Ql (U) Negative Normal [facility]; [facility] Work Phone: Microscopic observation LM Nom (Urine sed) See below: Normal [facility] Work Phone: Comment on above: Microscopic was jared cated and was performed. mar 2017; PATIENT W FASTINGPERFORMED BY: ALEX [facility] Spfsel3730 [address] RoadDublin [place] [id number] Nitrite Ql (U) Negative Normal Comprehens shanta [facility] Medicine Work Phone: Comment on above: mar 2017; PATIENT W FASTINGPERFORMED BY: [facility] Ajhzqb2927 [address] RoadDublin [place] [id number] Nitrite Ql (U) Negative Normal Comprehens shanta [facility]; [facility] Work Phone: Nitrite Test strip Ql (U) Negative Normal [facility] Work Phone: pH (U) 6.5 [pH] Normal 5.0-7.5 [facility] Work Phone: Comment on above: mar 2017; PATIENT W FASTINGPERFORMED BY: [facility] Zxkyes4562 [address] RoadDublin [place] [id number] pH Test strip (U) 6.5 [pH] Normal 5.0-7.5 Compreh ensive Internal Medicine Work Phone: Protein Ql (U) Negative Normal Comprehens shanta [facility] Medicine Work Phone: Comment on above: mar 2017; PATIENT W FASTINGPERFORMED BY: ALEX Villegas6[address] Dolosysbl[address] [place] [id number] Protein Ql (U) Negative Normal Comprehens shanta [facility]; [facility] Work Phone: Protein Test strip Ql (U) Negative Normal [facility] Work Phone: Specific gravity Relative Density (U) 1.015 1 Normal 1.005-1.03 0 [facility] Work Phone: Comment on above: mar 2017; PATIENT W FASTINGPERFORMED BY: ALEX Villegas6370 [facility]omUNC [facility] Johnston [id number] Urobilinogen (U) [Mass/Vol] 1.0 mg/dL Normal 0.2-1.0 [facility]; [facility] Work Phone: Urobilinogen Test strip mass conc (U) 1.0 mg/dL Normal 0.2-1.0 Comprehensiv e Internal Medicine Work Phone: Comment on above: mar 2017; PATIENT W FASTINGPERFORMED BY: ALEX Villegas6370 GigaomUNC Health [facility] [id number] Microscopic ExaminationOrder ed By: Coil Maker on 11-20-2016 Bacteria LM.HPF #/area (Urine sed) Few Normal [facility] Work Phone: Comment on above: PATIENT NOT FASTINGP ERFORMED BY: ALEX LabTravis ManleyKolend6175 [address] Dolosysbl[address] [place] [id number] Epithelial cells LM.HPF #/area (Urine sed) 0-10 Normal 0 - 10 [facility] Work Phone: Comment on above: PATIENT NOT FASTINGP ERFORMED BY: ALEX Manleylin6370 [address]ysbl[address] [place] [id number] Mucus LM Ql (Urine sed) Present Normal [facility] Work Phone: Mucus Ql (Urine sed) Present Normal Comp rehensive Internal Medicine Work Phone: Comment on above: PATIENT NOT FASTINGP ERFORMED BY: CB [facility] Vnelrj6595 [address] RoadDublin [place] [id number] RBC LM.HPF #/area (Urine sed) 11-30 Abnormal 0 - 2 [facility] Work Phone: Comment on above: PATIENT NOT FASTINGP ERFORMED BY: CB [facility] Peltcy4016 [address] RoadDublin [place] [id number] WBC LM.HPF #/area (Urine sed) 6-10 Abnormal 0 - 5 [facility] Work Phone: Comment on above: PATIENT NOT FASTINGP ERFORMED BY: CB [facility] Ajsksd2224 [address] RoadDublin [place] [id number] RENAL FUNCTION PANEL ([id number]) Ordered By: Coil Maker on 11-20-2016 Albumin mass conc 4.4 g/dL Normal 3.5-4.8 Compreh ensive Internal Medicine Work Phone: Comment on above: PATIENT NOT FASTINGP ERFORMED BY: CB [facility] Tcjdiw0958 [address] RoadDublin [place] [id number] Calcium mass conc 9.6 mg/dL Normal 8.7-10.3 Compreh ensive Internal Medicine Work Phone: Comment on above: PATIENT NOT FASTINGP ERFORMED BY: CB [facility] Ihogms5205 [address] RoadDublin [place] [id number] Chloride molar conc 102 mmol/L Normal 96-106 Compr ehensive Internal Medicine Work Phone: Comment on above: PATIENT NOT FASTINGP ERFORMED BY: CB [facility] Gaqwew8711 [address] RoadDublin [place] [id number] CO2 molar conc 20 mmol/L Normal 18-29 Comprehens shanta [facility] Medicine Work Phone: Comment on above: PATIENT NOT FASTINGP ERFORMED BY: CB [facility] Ltjjkn4871 [address] RoadDublin [place] [id number] Creatinine mass conc 0.98 mg/dL Normal 0.57-1.00 Comp rehensive Internal Medicine Work Phone: Comment on above: PATIENT NOT FASTINGP ERFORMED BY: ALEX [facility] Vuexqp9470 [address] RoadDublin [place] [id number] GFR/1.73 sq M predicted among blacks CKD-EPI vol rate/area (S/P/Bld) 67 mL/min/1.73 Normal Comprehensiv e Internal Medicine Work Phone: Comment on above: PATIENT NOT FASTINGP ERFORMED BY: CB [facility] Xzuzmr8342 [address] Roadblin [place] [id number] GFR/1.73 sq M predicted among non-blacks CKD-EPI vol rate/area (S/P/Bld) 58 mL/min/1.73 Abnormal [facility] Work Phone: Comment on above: PATIENT NOT FASTINGP ERFORMED BY: ALEX [facility] Irvtif1210 [address] RoadCritical Access Hospitalin [place] [id number] Glucose mass conc 88 mg/dL Normal 65-99 Compreh ensive Internal Medicine Work Phone: Comment on above: PATIENT NOT FASTINGP ERFORMED BY: ALEX [facility] Netomg5755 [address] Roadblin [place] [id number] Phosphate mass conc 3.8 mg/dL Normal 2.5-4.5 Compr ehensive Internal Medicine Work Phone: Comment on above: PATIENT NOT FASTINGP ERFORMED BY: ALEX [facility] Tctqgk2173 [address] [facility] [place] [id number] Potassium molar conc 4.6 mmol/L Normal 3.5-5.2 Comp rehensive Internal Medicine Work Phone: Comment on above: PATIENT NOT FASTINGP ERFORMED BY: CB [facility] Yyygxl6229 [address] RoadDublin [place] [id number] Sodium molar conc 140 mmol/L Normal 134-144 Compreh ensive Internal Medicine Work Phone: Comment on above: PATIENT NOT FASTINGP ERFORMED BY: CB [facility] Yknjzy8618 [address] RoadDublin [place] [id number] Urea nitrogen mass conc 15 mg/dL Normal 8-27 [facility] Work Phone: Comment on above: PATIENT NOT FASTINGP ERFORMED BY: ALEX LabCodaniella ManleyMbcgth2341 [address] Roadblin [place] [id number] Urea nitrogen/Creatinine mass ratio 15 mg/mg Normal 12- [facility] Work Phone: Comment on above: PATIENT NOT FASTINGP ERFORMED BY: ALEX [facility] Aogjpe0447 [address] Roadblin [place] [id number] URINALYSIS ([id number])Ordered By : Coil Maker on 11-20-2016 Appearance Nom (U) Clear Normal Compre hensive Internal Medicine Work Phone: Comment on above: PATIENT NOT FASTINGP ERFORMED BY: ALEX [facility] Aoezoy3798 [address] RoadDusaint clare's hospital [facility] [place] [id number] Information: SRC:UC Bilirubin Ql (U) Negative Normal Comprehe nsive Internal Medicine Work Phone: Comment on above: PATIENT NOT FASTINGP ERFORMED BY: ALEX AjithTravis ManleySycvhb0474 [address] RoadCritical Access Hospitalin [place] [id number] Information: SRC:UC Bilirubin Ql (U) Negative Normal Comprehe nsive Internal Medicine; [facility] Work Phone: Color Nom (U) Yellow Normal Comprehensi ve Internal Medicine Work Phone: Comment on above: PATIENT NOT FASTINGP ERFORMED BY: ALEX [facility] Erlefu0836 Avila RoadCritical Access Hospitalin [place] [id number] Information: SRC:UC Glucose Ql (U) Negative Normal Comprehens shanta [facility] Medicine Work Phone: Comment on above: PATIENT NOT FASTINGP ERFORMED BY: ALEX [facility] Cyupgf8634 [address] RoadDublin [place] [id number] Information: SRC:UC Glucose Ql (U) Negative Normal Comprehens shanta [facility]; [facility] Work Phone: Hemoglobin Ql (U) 2+ Abnormal Compreh ensive Internal Medicine Work Phone: Comment on above: PATIENT NOT FASTINGP ERFORMED BY: ALEX [facility] Jhcylw7398 [address] RoadCritical Access Hospitalin [place] [id number] Information: SRC:UC Hemoglobin Test strip Ql (U) 2+ Abnormal [facility] Work Phone: Ketones Ql (U) Negative Normal Comprehens shanta [facility] Medicine Work Phone: Comment on above: PATIENT NOT FASTINGP ERFORMED BY: ALEX [facility] Rjibei8365 [address] RoadDublin [place] [id number] Information: SRC:UC Ketones Ql (U) Negative Normal Comprehens shanta [facility]; [facility] Work Phone: Leukocyte esterase Test strip Ql (U) 2+ Abnormal [facility] Work Phone: Comment on above: PATIENT NOT FASTINGP ERFORMED BY: ALEX LabTravis ManleyZbttkc2989 [address] RoadDuin [place] [id number] Information: SRC:UC Microscopic observation LM Nom (Urine sed) See below: Normal [facility] Work Phone: Comment on above: Microscopic was jared cated and was performed. PATIENT NOT FASTINGP ERFORMED BY: ALEX LabTravis ManleyCniuxn5761 Avila RoadCritical Access Hospitalin [place] [id number] Information: SRC:UC Nitrite Ql (U) Negative Normal Comprehens shanta [facility] Medicine Work Phone: Comment on above: PATIENT NOT FASTINGP ERFORMED BY: ALEX LabCodaniella ManleyCvikom1877 Avila RoadNovant Health [facility] [id number] Information: SRC:UC Nitrite Ql (U) Negative Normal Comprehens shanta [facility] Medicine; [facility] Work Phone: Nitrite Test strip Ql (U) Negative Normal [facility] Work Phone: pH (U) 6.0 [pH] Normal 5.0-7.5 [facility] Work Phone: Comment on above: PATIENT NOT FASTINGP ERFORMED BY: ALEX [facility] Pkgtnt5449 [address] RoadDublin [place] [id number] Information: SRC:UC pH Test strip (U) 6.0 [pH] Normal 5.0-7.5 Compreh ensive Internal Medicine Work Phone: Protein Ql (U) Negative Normal Comprehens shanta [facility] Work Phone: Comment on above: PATIENT NOT FASTINGP ERFORMED BY: ALEX LabTravis ManleyOhuqzf6198 [facility] [id number] Information: SRC:UC Protein Ql (U) Negative Normal Comprehens shanta [facility]; [facility] Work Phone: Protein Test strip Ql (U) Negative Normal [facility] Work Phone: Specific gravity Relative Density (U) 1.019 1 Normal 1.005-1.03 0 [facility] Work Phone: Comment on above: PATIENT NOT FASTINGP ERFORMED BY: ALEX LabTravis ManleyJpulby4845 [facility] [id number] Information: SRC:UC Urobilinogen (U) [Mass/Vol] 0.2 mg/dL Normal 0.2-1.0 [facility]; [facility] Work Phone: Urobilinogen Test strip mass conc (U) 0.2 mg/dL Normal 0.2-1.0 Comprehensiv e Internal Medicine Work Phone: Comment on above: PATIENT NOT FASTINGP ERFORMED BY: ALEX LabCodaniella Hpawgd7745 [facility] [id number] Information: SRC:UC URINE JASON CULTURE-ANGELINA COL C OUNT ([id number])Ordered By: Coil Maker on 11-20-2016 Bacteria identified Cx Nom (U) MUG Normal [facility] Work Phone: Comment on above: Mixed urogenital paris ra1,000 Colonies/mL PATIENT NOT FASTINGP ERFORMED BY: ALEX [facility] Hezdfp5937 [facility] [id number] Bacteria identified Cx Nom (U) Final report Normal [facility] Work Phone: Comment on above: PATIENT NOT FASTINGP ERFORMED BY: ALEX [facility] Zvlpta3597 [facility] [id number] C-REACT PROT HIGH SENS(hsCRP ) ([id number])Ordered By: Coil Maker on 08-21-2016 CRP High sensitivity method mass conc 2.25 mg/L Normal 0.00-3.00 [facility] Work Phone: Comment on above: Relative Risk for Fu ture Cardiovascular Event Low <1.00 Average 1.00 - 3.00 High >3.00 PATIENT NOT FASTINGP ERFORMED BY: [employer] Lbghya7366 [facility] [id number] BY: PacketSled[address] [id number] CCP ANTIBODY ([id number])Ordered By: Coil Maker on 08-21-2016 Cyclic citrullinated peptide IgA+IgG IA Qn 6 {units} Normal 0-19 [facility]parn[facility] Work Phone: Comment on above: Negative <20 Weak po sitive 20 - 39 Moderate positive 40 - 59 Strong positive >59 PATIENT NOT FASTINGP ERFORMED BY: [employer]70 [facility] [id number] BY: [employer] [id number] SED RATE ERYTHROCYTE ([id number]) Ordered By: Coil Maker on 08-21-2016 ESR Velocity (Bld) 4 mm/h Normal 0-40 [facility] Internal Medicine Work Phone: Comment on above: PATIENT NOT FASTINGP ERFORMED BY: [employer] Pnmpfe5519 [facility] [id number] BY: PacketSled[address] [id number] Systemic Lupus Profile (8623 5)Ordered By: Coil Maker on 08-21-2016 Chromatin Ab Qn <0.2 Normal 0.0-0.9 [facility] Internal Medicine Work Phone: Comment on above: PATIENT NOT FASTINGP ERFORMED BY: [employer] Gakmby5090 [facility] [id number] BY: [address] [id number] DNA double strand Ab Qn (S) 16 {IU/mL} Abnormal 0-9 [facility] Work Phone: Comment on above: Negative <5 Equivoca l 5 - 9 Positive >9 PATIENT NOT FASTINGP ERFORMED BY: ALEX [facility] Fmtpve7644 [facility] [id number] BY: [address] [id number] DNA double strand Ab Qn (S) 16 [IU]/mL Abnormal 0-9 [facility]; [facility] Work Phone: Rheumatoid factor Qn [IU]/mL Normal 0.0-13.9 Comp rehensive Internal Medicine Work Phone: Comment on above: PATIENT NOT FASTINGP ERFORMED BY: ALEX [facility] Eggomp0449 [facility] [id number] BY: [address] [id number] Rheumatoid factor Qn [IU]/mL Normal 0.0-13.9 Comp rehensive Internal Medicine; [facility] Work Phone: Ribonucleoprotein extractable nuclear Ab Qn (S) <0.2 Normal 0.0-0.9 [facility] Work Phone: Comment on above: PATIENT NOT FASTINGP ERFORMED BY: [employer] Lmobcm9283 [facility] [id number] BY: [address] [id number] Sjogrens syndrome-A extractable nuclear Ab Qn (S) <0.2 Normal 0.0-0.9 [facility] Work Phone: Comment on above: PATIENT NOT FASTINGP ERFORMED BY: ALEX [facility] Yzgvhw8888 [facility] [id number] BY: [address] [id number] Sjogrens syndrome-B extractable nuclear Ab Qn (S) <0.2 Normal 0.0-0.9 [facility] Work Phone: Comment on above: PATIENT NOT FASTINGP ERFORMED BY: [facility]6370 [facility] [id number] BY: [address] [id number] [place] extractable nuclear Ab Qn (S) <0.2 Normal 0.0-0.9 [facility] Work Phone: Comment on above: PATIENT NOT FASTINGP ERFORMED BY: [place] [id number] [facility] [id number] BY: [address] [id number] CBC, Platelets & Auto Diff ( [id number])Ordered By: Coil Maker on 08-16-2016 Basophils #/vol (Bld) 0.0 {x10E3/uL} Normal 0.0-0.2 [facility] Work Phone: Comment on above: PATIENT WAS FASTINGP ERFORMED BY: [facility]6370 [facility] [id number] Information: [id number], [id number]; OV 2/7 Basophils (Bld) [#/Vol] 0.0 10*3/uL Normal 0.0-0.2 [facility]; [facility] Work Phone: Basophils Auto #/vol (Bld) 0.0 {x10E3/uL} Normal 0.0-0.2 [facility] Work Phone: Basophils/100 WBC (Bld) 1 % Normal [facility] Work Phone: Comment on above: PATIENT WAS FASTINGP ERFORMED BY: [facility]6370 [facility] [id number] Information: [id number], [id number]; OV 2/7 Basophils/100 WBC Auto (Bld) 1 % Normal [facility] Work Phone: Eosinophils #/vol (Bld) 0.2 {x10E3/uL} Normal 0.0-0.4 [facility] Work Phone: Comment on above: PATIENT WAS FASTINGP ERFORMED BY: ALEX [facility]Up [facility]6370 [facility] [id number] Information: [id number], [id number]; OV 2/7 Eosinophils (Bld) [#/Vol] 0.2 10*3/uL Normal 0.0-0.4 [facility]; [facility] Work Phone: Eosinophils Auto #/vol (Bld) 0.2 {x10E3/uL} Normal 0.0-0.4 [facility] Work Phone: Eosinophils/100 WBC (Bld) 6 % Normal [facility] Work Phone: Comment on above: PATIENT WAS FASTINGP ERFORMED BY: [place] 2876870 [facility] [id number] Information: [id number], [id number]; OV 2/7 Eosinophils/100 WBC Auto (Bld) 6 % Normal [facility] Work Phone: Erythrocyte distribution width Auto Ratio (RBC) 13.8 % Normal 12.3-15.4 [facility] Work Phone: Erythrocyte distribution width Ratio (RBC) 13.8 % Normal 12.3-15.4 [facility] Internal Medicine Work Phone: Comment on above: PATIENT WAS FASTINGP ERFORMED BY: [place] 2876870 [facility] [id number] Information: [id number], [id number]; OV 2/7 Hematocrit Auto Volume Fraction (Bld) 36.3 % Normal 34.0-46.6 [facility] Internal Medicine Work Phone: Hematocrit Volume Fraction (Bld) 36.3 % Normal 34.0-46.6 [facility] Internal Medicine Work Phone: Comment on above: PATIENT WAS FASTINGP ERFORMED BY: [facility]6370 [facility] [id number] Information: [id number], [id number]; OV 2/7 Hemoglobin mass conc (Bld) 12.2 g/dL Normal 11.1-15.9 [facility] Work Phone: Comment on above: PATIENT WAS FASTINGP ERFORMED BY: ALEX [facility]6370 [facility] [id number] Information: [id number], [id number]; OV 2/7 Immature granulocytes #/vol (Bld) 0.0 {x10E3/uL} Normal 0.0-0.1 [facility] Work Phone: Comment on above: PATIENT WAS FASTINGP ERFORMED BY: [place] [id number] [facility] [id number] Information: [id number], [id number]; OV 2/7 Immature granulocytes (Bld) [#/Vol] 0.0 10*3/uL Normal 0.0-0.1 [facility]; [facility] Work Phone: Immature granulocytes/100 WBC (Bld) 0 % Normal [facility] Work Phone: Comment on above: PATIENT WAS FASTINGP ERFORMED BY: [place] [id number] [facility] [id number] Information: [id number], [id number]; OV 2/7 Lymphocytes #/vol (Bld) 1.3 {x10E3/uL} Normal 0.7-3.1 [facility] Work Phone: Comment on above: PATIENT WAS FASTINGP ERFORMED BY: ALEX [place] [id number] [facility] [id number] Information: [id number], [id number]; OV 2/7 Lymphocytes (Bld) [#/Vol] 1.3 10*3/uL Normal 0.7-3.1 [facility]; [facility] Work Phone: Lymphocytes Auto #/vol (Bld) 1.3 {x10E3/uL} Normal 0.7-3.1 [facility] Work Phone: Lymphocytes/100 WBC (Bld) 38 % Normal [facility] Work Phone: Comment on above: PATIENT WAS FASTINGP ERFORMED BY: [place] [id number] [facility] [id number] Information: [id number], [id number]; OV 2/7 Lymphocytes/100 WBC Auto (Bld) 38 % Normal [facility] Work Phone: MCH Auto Entitic mass (RBC) 29.4 pg Normal 26.6-33.0 [facility] Work Phone: MCH Entitic mass (RBC) 29.4 pg Normal 26.6-33.0 [facility] Work Phone: Comment on above: PATIENT WAS FASTINGP ERFORMED BY: [place] [id number] [facility] [id number] Information: [id number], [id number]; OV 2/7 MCHC Auto mass conc (RBC) 33.6 g/dL Normal 31.5-35.7 [facility] Work Phone: MCHC mass conc (RBC) 33.6 g/dL Normal 31.5-35.7 Comp [facility] Internal Medicine Work Phone: Comment on above: PATIENT WAS FASTINGP ERFORMED BY: [place] [id number] [facility] [id number] Information: [id number], [id number]; OV 2/7 MCV Auto Entitic volume (RBC) 88 fL Normal 79-97 [facility] Work Phone: MCV Entitic volume (RBC) 88 fL Normal 79-97 [facility] Work Phone: Comment on above: PATIENT WAS FASTINGP ERFORMED BY: [facility]6370 [facility] [id number] Information: [id number], [id number]; OV 2/7 Monocytes #/vol (Bld) 0.2 {x10E3/uL} Normal 0.1-0.9 [facility] Work Phone: Comment on above: PATIENT WAS FASTINGP ERFORMED BY: [place] [id number] [facility] [id number] Information: [id number], [id number]; OV 2/7 Monocytes (Bld) [#/Vol] 0.2 10*3/uL Normal 0.1-0.9 [facility]; [facility] Work Phone: Monocytes Auto #/vol (Bld) 0.2 {x10E3/uL} Normal 0.1-0.9 [facility] Work Phone: Monocytes/100 WBC (Bld) 6 % Normal [facility] Work Phone: Comment on above: PATIENT WAS FASTINGP ERFORMED BY: Tactonic TechnologiesSaint Clare's Hospital at SussexFdvgge1399 [facility] [id number] Information: [id number], [id number]; OV 2/7 Monocytes/100 WBC Auto (Bld) 6 % Normal [facility] Work Phone: Neutrophils #/vol (Bld) 1.7 {x10E3/uL} Normal 1.4-7.0 [facility] Work Phone: Comment on above: PATIENT WAS FASTINGP ERFORMED BY: Tactonic TechnologiesShannon Ville [id number] [facility] [id number] Information: [id number], [id number]; OV 2/7 Neutrophils (Bld) [#/Vol] 1.7 10*3/uL Normal 1.4-7.0 [facility]; [facility] Work Phone: Neutrophils Auto #/vol (Bld) 1.7 {x10E3/uL} Normal 1.4-7.0 [facility] Work Phone: Neutrophils/100 WBC (Bld) 49 % Normal [facility] Work Phone: Comment on above: PATIENT WAS FASTINGP ERFORMED BY: [facility] CenterPacejet LogisticsSaint Clare's Hospital at SussexJpqrrj7142 [facility] [id number] Information: [id number], [id number]; OV 2/7 Neutrophils/100 WBC Auto (Bld) 49 % Normal [facility] Work Phone: Platelets #/vol (Bld) 210 {x10E3/uL} Normal 150-379 [facility] Work Phone: Comment on above: PATIENT WAS FASTINGP ERFORMED BY: [place] [id number] [facility] [id number] Information: [id number], [id number]; OV 2/7 Platelets (Bld) [#/Vol] 210 10*3/uL Normal 150-379 [facility] Internal Medicine; [facility] Work Phone: Platelets Auto #/vol (Bld) 210 {x10E3/uL} Normal 150-379 [facility] Work Phone: RBC #/vol (Bld) 4.15 {x10E6/uL} Normal 3.77-5.28 Comp [facility] Internal Medicine Work Phone: Comment on above: PATIENT WAS FASTINGP ERFORMED BY: [place] [id number] [facility] [id number] Information: [id number], [id number]; OV 2/7 RBC (Bld) [#/Vol] 4.15 10*6/uL Normal 3.77-5.28 Compr [facility] Internal Medicine; [facility] Work Phone: RBC Auto #/vol (Bld) 4.15 {x10E6/uL} Normal 3.77-5.28 [facility] Internal Medicine Work Phone: WBC #/vol (Bld) 3.3 {x10E3/uL} Abnormal 3.4-10.8 [facility] Internal Medicine Work Phone: Comment on above: PATIENT WAS FASTINGP ERFORMED BY: [facility]6370 [facility] [id number] Information: [id number], [id number]; OV 2/7 WBC (Bld) [#/Vol] 3.3 10*3/uL Abnormal 3.4-10.8 Compre [facility] Internal Medicine; [facility] Work Phone: WBC Auto #/vol (Bld) 3.3 {x10E3/uL} Abnormal 3.4-10.8 [facility] Internal Medicine Work Phone: LIPID PANEL ([id number])Ordered B y: Coil Maker on 08-16-2016 Cholesterol in HDL mass conc 91 mg/dL Normal [facility] Work Phone: Comment on above: PATIENT WAS FASTINGP ERFORMED BY: ALEX Otoniel Villegas6370 [facility] [id number] Cholesterol in LDL mass conc 120 mg/dL Abnormal 0-99 [facility] Work Phone: Comment on above: PATIENT WAS FASTINGP ERFORMED BY: ALEX Otoniel Manleylin6370 [facility] [id number] Cholesterol in LDL/Cholesterol in HDL mass ratio 1.3 {ratio_units} Normal 0.0-3.2 [facility] Work Phone: Comment on above: LDL/HDL Ratio Men Wo men 1/2 Avg.Risk 1.0 1.5 Avg.Risk 3.6 3.2 2X Avg.Risk 6.2 5.0 3X Avg.Risk 8.0 6.1 PATIENT WAS FASTINGP ERFORMED BY: ALEX Otoniel Manleylin6370 [facility] [id number] Cholesterol in VLDL mass conc 12 mg/dL Normal 5-40 [facility] Work Phone: Comment on above: PATIENT WAS FASTINGP ERFORMED BY: ALEX Otoniel Manleylin6370 [facility] [id number] Cholesterol mass conc 223 mg/dL Abnormal 100-199 Com prehensive Internal Medicine Work Phone: Comment on above: PATIENT WAS FASTINGP ERFORMED BY: ALEX Otoniel Manleylin6370 [facility] [id number] Triglyceride mass conc 61 mg/dL Normal 0-149 [facility] Work Phone: Comment on above: PATIENT WAS FASTINGP ERFORMED BY: ALEX LabTravis ManleyGgaiwi4425 [facility] [id number] METABOLIC PANEL, COMPREHENSI VE ([id number])Ordered By: Coil Maker on 08-16-2016 Albumin mass conc 4.6 g/dL Normal 3.5-4.8 Compreh ensive Internal Medicine Work Phone: Comment on above: PATIENT WAS FASTINGP ERFORMED BY: ALEX [facility] Hnaome9[address] RoadDublin [place] [id number] Albumin/Globulin mass ratio 1.8 {ratio} Normal 1.1-2.5 [facility] Internal Medicine Work Phone: Comment on above: PATIENT WAS FASTINGP ERFORMED BY: [facility] Hqauud7116 [address] RoadDublin [place] [id number] ALP [Catalytic activity/Vol] 100 U/L Normal 39-117 [facility]; [facility] Internal Medicine Work Phone: ALP enzyme act/vol 100 [iU]/L Normal 39-117 [facility] Internal Medicine Work Phone: Comment on above: PATIENT WAS FASTINGP ERFORMED BY: LAEX [facility] Ngvggf[address] RoadDublin [place] [id number] ALT [Catalytic activity/Vol] 15 U/L Normal 0-32 [facility]; [facility] Internal Medicine Work Phone: ALT enzyme act/vol 15 [iU]/L Normal 0-32 [facility] Internal Medicine Work Phone: Comment on above: PATIENT WAS FASTINGP ERFORMED BY: [facility] Bithum0598 [address] RoadDublin [place] [id number] AST [Catalytic activity/Vol] 19 U/L Normal 0-40 [facility] Internal Medicine; [facility] Internal Medicine Work Phone: AST enzyme act/vol 19 [iU]/L Normal 0-40 [facility] Internal Medicine Work Phone: Comment on above: PATIENT WAS FASTINGP ERFORMED BY: [facility] Pavlbv4554 [address] RoadDublin [place] [id number] Bilirubin mass conc 0.4 mg/dL Normal 0.0-1.2 [facility] Internal Medicine Work Phone: Comment on above: PATIENT WAS FASTINGP ERFORMED BY: [facility] Tebghk1908 [address] RoadDublin [place] [id number] Calcium mass conc 9.5 mg/dL Normal 8.7-10.3 [facility] Internal Medicine Work Phone: Comment on above: PATIENT WAS FASTINGP ERFORMED BY: ALEX [facility] Dauvtd7148 [address] Roadblin [place] [id number] Chloride molar conc 106 mmol/L Normal 96-106 Compr ensive Internal Medicine Work Phone: Comment on above: PATIENT WAS FASTINGP ERFORMED BY: ALEX [facility] Jxvqwa5673 [address] Roadblin [place] [id number] CO2 molar conc 25 mmol/L Normal 18-29 Comprehens shanta Internal Medicine Work Phone: Comment on above: PATIENT WAS FASTINGP ERFORMED BY: ALEX [facility] Bqefiz95[address] RoadCritical Access Hospitalin [place] [id number] Creatinine mass conc 0.91 mg/dL Normal 0.57-1.00 [facility] Internal Medicine Work Phone: Comment on above: PATIENT WAS FASTINGP ERFORMED BY: ALXE [facility] Dqmnde8319 [address] RoadNovant Health Ballantyne [facility] [id number] GFR/1.73 sq M predicted among blacks CKD-EPI vol rate/area (S/P/Bld) 74 mL/min/1.73 Normal [facility] Internal [facility] Work Phone: Comment on above: PATIENT WAS FASTINGP ERFORMED BY: ALEX [facility] Tnzglw[address] [facility] Hospitalin [place] [id number] GFR/1.73 sq M predicted among non-blacks CKD-EPI vol rate/area (S/P/Bld) 64 mL/min/1.73 Normal [facility] Internal Medicine Work Phone: Comment on above: PATIENT WAS FASTINGP ERFORMED BY: ALEX [facility] Jheczb[address] [facility] [id number] Globulin Calculated mass conc (S) 2.6 g/dL Normal 1.5-4.5 [facility] Work Phone: Globulin mass conc (S) 2.6 g/dL Normal 1.5-4.5 [facility] Work Phone: Comment on above: PATIENT WAS FASTINGP ERFORMED BY: ALEX [facility] Sdvyyx[address] [facility] [id number] Glucose mass conc 93 mg/dL Normal 65-99 Compreh ensive Internal Medicine Work Phone: Comment on above: PATIENT WAS FASTINGP ERFORMED BY: [facility]6370 [facility] [id number] Potassium molar conc 4.5 mmol/L Normal 3.5-5.2 Comp rehensive Internal Medicine Work Phone: Comment on above: PATIENT WAS FASTINGP ERFORMED BY: [facility]6370 [facility] [id number] Protein mass conc 7.2 g/dL Normal 6.0-8.5 Compreh ensive Internal Medicine Work Phone: Comment on above: PATIENT WAS FASTINGP ERFORMED BY: [facility]6370 [facility] [id number] Sodium molar conc 143 mmol/L Normal 134-144 Compreh ensive Internal Medicine Work Phone: Comment on above: PATIENT WAS FASTINGP ERFORMED BY: [facility]6370 [facility] [id number] Urea nitrogen mass conc 16 mg/dL Normal 8-27 [facility] Work Phone: Comment on above: PATIENT WAS FASTINGP ERFORMED BY: [facility]6370 [facility] [id number] Urea nitrogen/Creatinine mass ratio 18 mg/mg Normal 11-26 [facility] Work Phone: Comment on above: PATIENT WAS FASTINGP ERFORMED BY: [facility]6370 [facility] [id number] TSH (THYROID STIMULATING HOR MAYRA) ([id number])Ordered By: Coil Maker on 08-16-2016 Thyrotropin Qn 1.860 {uIU/mL} Normal 0.450-4.50 0 [facility] Work Phone: Comment on above: PATIENT WAS FASTINGP ERFORMED BY: [facility]6370 [facility] [id number] CBC with auto diff ([id number])Or dered By: Coil Maker on 09-07-2015 Basophils #/vol (Bld) 0.0 {x10E3/uL} Normal 0.0-0.2 [facility] Work Phone: Comment on above: in six months (); PATIENT WAS FASTINGPERFORMED BY: ALEX [facility]6370 [facility] [id number] Information: [id number] Basophils (Bld) [#/Vol] 0.0 10*3/uL Normal 0.0-0.2 [facility]; [facility] Work Phone: Basophils Auto #/vol (Bld) 0.0 {x10E3/uL} Normal 0.0-0.2 [facility] Work Phone: Basophils/100 WBC (Bld) 1 % Normal [facility] Work Phone: Comment on above: in six months (appro ); PATIENT WAS FASTINGPERFORMED BY: [facility]6370 [facility] [id number] Information: [id number] Basophils/100 WBC Auto (Bld) 1 % Normal [facility] Work Phone: Eosinophils #/vol (Bld) 0.4 {x10E3/uL} Normal 0.0-0.4 [facility] Work Phone: Comment on above: in six months (); PATIENT WAS FASTINGPERFORMED BY: [facility]6370 [facility] [id number] Information: [id number] Eosinophils (Bld) [#/Vol] 0.4 10*3/uL Normal 0.0-0.4 [facility]; [facility] Work Phone: Eosinophils Auto #/vol (Bld) 0.4 {x10E3/uL} Normal 0.0-0.4 [facility] Work Phone: Eosinophils/100 WBC (Bld) 11 % Normal [facility] Work Phone: Comment on above: in six months (); PATIENT WAS FASTINGPERFORMED BY: ALEX LabCo Egtkle4719 [facility] [id number] Information: [id number] Eosinophils/100 WBC Auto (Bld) 11 % Normal [facility] Work Phone: Erythrocyte distribution width Auto Ratio (RBC) 13.6 % Normal 12.3-15.4 [facility] Work Phone: Erythrocyte distribution width Ratio (RBC) 13.6 % Normal 12.3-15.4 [facility] Work Phone: Comment on above: in six months (); PATIENT WAS FASTINGPERFORMED BY: ALEX LabScotland [facility] Hospital Rqmtoj2096 [facility] [id number] Information: [id number] Hematocrit Auto Volume Fraction (Bld) 34.5 % Normal 34.0-46.6 [facility] Internal Medicine Work Phone: Hematocrit Volume Fraction (Bld) 34.5 % Normal 34.0-46.6 [facility] Work Phone: Comment on above: in six months (); PATIENT WAS FASTINGPERFORMED BY: ALEX CansecoScotland County Memorial Hospital Boztki0954 [facility] [id number] Information: [id number] Hemoglobin mass conc (Bld) 11.6 g/dL Normal 11.1-15.9 [facility] Work Phone: Comment on above: in six months (); PATIENT WAS FASTINGPERFORMED BY: ALEX [facility]6370 [facility] [id number] Information: [id number] Immature granulocytes #/vol (Bld) 0.0 {x10E3/uL} Normal 0.0-0.1 [facility] Work Phone: Comment on above: in six months (); PATIENT WAS FASTINGPERFORMED BY: ALEX LabCoSaint Clare's Hospital at SussexBhluqm8774 [facility] [id number] Information: [id number] Immature granulocytes (Bld) [#/Vol] 0.0 10*3/uL Normal 0.0-0.1 [facility]; [facility] Work Phone: Immature granulocytes/100 WBC (Bld) 0 % Normal [facility] Work Phone: Comment on above: in six months (appro xi); PATIENT WAS FASTINGPERFORMED BY: [facility]6370 [facility] [id number] Information: [id number] Lymphocytes #/vol (Bld) 1.4 {x10E3/uL} Normal 0.7-3.1 [facility] Work Phone: Comment on above: in six months (appro ); PATIENT WAS FASTINGPERFORMED BY: [facility] Depdun1640 [facility] [id number] Information: [id number] Lymphocytes (Bld) [#/Vol] 1.4 10*3/uL Normal 0.7-3.1 [facility]; [facility] Work Phone: Lymphocytes Auto #/vol (Bld) 1.4 {x10E3/uL} Normal 0.7-3.1 [facility] Work Phone: Lymphocytes/100 WBC (Bld) 39 % Normal [facility] Work Phone: Comment on above: in six months (appro ); PATIENT WAS FASTINGPERFORMED BY: [facility]6370 [facility] [id number] Information: [id number] Lymphocytes/100 WBC Auto (Bld) 39 % Normal [facility] Work Phone: MCH Auto Entitic mass (RBC) 29.7 pg Normal 26.6-33.0 [facility] Work Phone: MCH Entitic mass (RBC) 29.7 pg Normal 26.6-33.0 [facility] Work Phone: Comment on above: in six months (appro ); PATIENT WAS FASTINGPERFORMED BY: LabGeneral Leonard Wood Army Community HospitalBaitft1108 [facility] [id number] Information: [id number] MCHC Auto mass conc (RBC) 33.6 g/dL Normal 31.5-35.7 [facility] Work Phone: MCHC mass conc (RBC) 33.6 g/dL Normal 31.5-35.7 [facility] Internal Medicine Work Phone: Comment on above: in six months (appro ); PATIENT WAS FASTINGPERFORMED BY: LabPacejet LogisticsSaint Clare's Hospital at SussexGndmnm0145 [facility] [id number] Information: [id number] MCV Auto Entitic volume (RBC) 88 fL Normal 79-97 [facility] Work Phone: MCV Entitic volume (RBC) 88 fL Normal 79-97 [facility] Work Phone: Comment on above: in six months (appro ); PATIENT WAS FASTINGPERFORMED BY: Tactonic TechnologiesUnion County General HospitalMkqqvu5628 [facility] [id number] Information: [id number] Monocytes #/vol (Bld) 0.2 {x10E3/uL} Normal 0.1-0.9 [facility] Work Phone: Comment on above: in six months (appro ); PATIENT WAS FASTINGPERFORMED BY: [facility]6370 [facility] [id number] Information: [id number] Monocytes (Bld) [#/Vol] 0.2 10*3/uL Normal 0.1-0.9 [facility]; [facility] Work Phone: Monocytes Auto #/vol (Bld) 0.2 {x10E3/uL} Normal 0.1-0.9 [facility] Work Phone: Monocytes/100 WBC (Bld) 5 % Normal [facility] Work Phone: Comment on above: in six months (appro ); PATIENT WAS FASTINGPERFORMED BY: ALEX LabCodaniella VillegasQkkxew6484 [facility] [id number] Information: [id number] Monocytes/100 WBC Auto (Bld) 5 % Normal [facility] Work Phone: Neutrophils #/vol (Bld) 1.6 {x10E3/uL} Normal 1.4-7.0 [facility] Work Phone: Comment on above: in six months (appro ); PATIENT WAS FASTINGPERFORMED BY: ALEX LabCo Jbssht0845 [facility] [id number] Information: [id number] Neutrophils (Bld) [#/Vol] 1.6 10*3/uL Normal 1.4-7.0 [facility]; [facility] Work Phone: Neutrophils Auto #/vol (Bld) 1.6 {x10E3/uL} Normal 1.4-7.0 [facility] Work Phone: Neutrophils/100 WBC (Bld) 44 % Normal [facility] Work Phone: Comment on above: in six months (appro ); PATIENT WAS FASTINGPERFORMED BY: ALEX Villegas6370 [facility] [id number] Information: [id number] Neutrophils/100 WBC Auto (Bld) 44 % Normal [facility] Work Phone: Platelets #/vol (Bld) 206 {x10E3/uL} Normal 150-379 [facility] Work Phone: Comment on above: in six months (appro ); PATIENT WAS FASTINGPERFORMED BY: ALEX LabCodaniella ManleyOadxwd0624 [facility] [id number] Information: [id number] Platelets (Bld) [#/Vol] 206 10*3/uL Normal 150-379 [facility]; [facility] Work Phone: Platelets Auto #/vol (Bld) 206 {x10E3/uL} Normal 150-379 [facility] Work Phone: RBC #/vol (Bld) 3.91 {x10E6/uL} Normal 3.77-5.28 Comp [facility]umbusensive Internal Medicine Work Phone: Comment on above: in six months (appro ximately); PATIENT WAS FASTINGPERFORMED BY: ALEX OpenEd70 [facility] [id number] Information: [id number] RBC (Bld) [#/Vol] 3.91 10*6/uL Normal 3.77-5.28 [facility] Internal Medicine; [facility] Work Phone: RBC Auto #/vol (Bld) 3.91 {x10E6/uL} Normal 3.77-5.28 [facility] Work Phone: WBC #/vol (Bld) 3.5 {x10E3/uL} Normal 3.4-10.8 [facility] Internal Medicine Work Phone: Comment on above: in six months (appro ximately); PATIENT WAS FASTINGPERFORMED BY: ALEX [employer]6370 [facility] [id number] Information: [id number] WBC (Bld) [#/Vol] 3.5 10*3/uL Normal 3.4-10.8 Compre [facility] Internal Medicine; [facility] Work Phone: WBC Auto #/vol (Bld) 3.5 {x10E3/uL} Normal 3.4-10.8 [facility] Internal Medicine Work Phone: LIPID PANEL ([id number])Ordered B y: Coil Maker on 09-07-2015 Cholesterol in HDL mass conc 81 mg/dL Normal [facility] Work Phone: Comment on above: According to ATP-III Guidelines, HDL-C >59 mg/dL is considered anegative risk factor for CHD. PATIENT WAS FASTINGP ERFORMED BY: ALEX [facility] Yvxoff6983 [address] RoadDublin [place] [id number]; apt. 3--16 Cholesterol in LDL mass conc 105 mg/dL Abnormal 0-99 [facility] Work Phone: Comment on above: PATIENT WAS FASTINGP ERFORMED BY: CB [facility] Foyppf1867 [address] RoadDublin [place] [id number]; apt. 3-16 Cholesterol in LDL/Cholesterol in HDL mass ratio 1.3 {ratio_units} Normal 0.0-3.2 [facility] Work Phone: Comment on above: LDL/HDL Ratio Men Wo men 1/2 Avg.Risk 1.0 1.5 Avg.Risk 3.6 3.2 2X Avg.Risk 6.2 5.0 3X Avg.Risk 8.0 6.1 PATIENT WAS FASTINGP ERFORMED BY: ALEX [facility] Twvpmc5927 [address] RoadDuin [place] [id number]; apt. 3-16 Cholesterol in VLDL mass conc 10 mg/dL Normal 5-40 [facility] Work Phone: Comment on above: PATIENT WAS FASTINGP ERFORMED BY: CB [facility] Kfpvop8991 [address] RoadDublin [place] [id number]; apt. 3-1-16 Cholesterol mass conc 196 mg/dL Normal 100-199 [facility] prehensive Internal Medicine Work Phone: Comment on above: PATIENT WAS FASTINGP ERFORMED BY: CB [facility] Cjtjpn9801 [address] RoadDublin [place] [id number]; apt. 3-1-16 Triglyceride mass conc 52 mg/dL Normal 0-149 [facility] Work Phone: Comment on above: PATIENT WAS FASTINGP ERFORMED BY: CB [facility] Zycemx7149 [address] RoadDublin [place] [id number]; apt. 3-1-16 METABOLIC PANEL, COMPREHENSI VE ([id number])Ordered By: Coil Maker on 09-07-2015 Albumin mass conc 4.1 g/dL Normal 3.5-4.8 Compreh ensive Internal Medicine Work Phone: Comment on above: PATIENT WAS FASTINGP ERFORMED BY: [facility]6[address] [facility] [id number] Albumin/Globulin mass ratio 1.6 {ratio} Normal 1.1-2.5 [facility] Internal Medicine Work Phone: Comment on above: PATIENT WAS FASTINGP ERFORMED BY: [facility] Bysdtw[address] [facility] [id number] ALP [Catalytic activity/Vol] 89 U/L Normal 39-117 [facility] Internal Medicine; [facility] Internal Medicine Work Phone: ALP enzyme act/vol 89 [iU]/L Normal 39-117 [facility] Internal Medicine Work Phone: Comment on above: PATIENT WAS FASTINGP ERFORMED BY: [facility]6[address] [facility] [id number] ALT [Catalytic activity/Vol] 12 U/L Normal 0-32 [facility] [facility]; [facility] Internal Medicine Work Phone: ALT enzyme act/vol 12 [iU]/L Normal 0-32 [facility] Internal Medicine Work Phone: Comment on above: PATIENT WAS FASTINGP ERFORMED BY: [facility]6370 [facility] [id number] AST [Catalytic activity/Vol] 17 U/L Normal 0-40 [facility] Internal Medicine; [facility] Internal Medicine Work Phone: AST enzyme act/vol 17 [iU]/L Normal 0-40 [facility] Internal Medicine Work Phone: Comment on above: PATIENT WAS FASTINGP ERFORMED BY: [facility]6370 [facility] [id number] Bilirubin mass conc 0.4 mg/dL Normal 0.0-1.2 [facility] Internal Medicine Work Phone: Comment on above: PATIENT WAS FASTINGP ERFORMED BY: [facility]6[address] [facility] [id number] Calcium mass conc 9.3 mg/dL Normal 8.7-10.3 [facility] Internal Medicine Work Phone: Comment on above: PATIENT WAS FASTINGP ERFORMED BY: ALEX [facility] Zrouna3277 [address]ila RoadDublin [place] [id number] Chloride molar conc 104 mmol/L Normal 97-108 [facility] Work Phone: Comment on above: PATIENT WAS FASTINGP ERFORMED BY: ALEX [facility] Hcurtm9290 [address]ila RoadDublin [place] [id number] CO2 molar conc 23 mmol/L Normal 18-29 Comprehens shanta Internal Medicine Work Phone: Comment on above: PATIENT WAS FASTINGP ERFORMED BY: ALEX [facility] Vzbbdh3949 [address]ila RoadDublin [place] [id number] Creatinine mass conc 0.86 mg/dL Normal 0.57-1.00 [facility] Internal Medicine Work Phone: Comment on above: PATIENT WAS FASTINGP ERFORMED BY: ALEX [facility] Cgvxgs1230 [address] Roadblin [place] [id number] GFR/1.73 sq M predicted among blacks CKD-EPI vol rate/area (S/P/Bld) 79 mL/min/1.73 Normal [facility] Work Phone: Comment on above: PATIENT WAS FASTINGP ERFORMED BY: ALEX [facility] Uohipk9291 [address] RoadDublin [place] [id number] GFR/1.73 sq M predicted among non-blacks CKD-EPI vol rate/area (S/P/Bld) 69 mL/min/1.73 Normal [facility] Work Phone: Comment on above: PATIENT WAS FASTINGP ERFORMED BY: ALEX [facility] Ntkrlx3899 [address] RoadDublin [place] [id number] Globulin Calculated mass conc (S) 2.6 g/dL Normal 1.5-4.5 [facility] Work Phone: Globulin mass conc (S) 2.6 g/dL Normal 1.5-4.5 [facility] Work Phone: Comment on above: PATIENT WAS FASTINGP ERFORMED BY: ALEX [facility] Pexjqq8813 [address] RoadDublin [place] [id number] Glucose mass conc 87 mg/dL Normal 65-99 Compreh ensive Internal Medicine Work Phone: Comment on above: PATIENT WAS FASTINGP ERFORMED BY: ALEX Otoniel Villegas6370 [facility] [id number] Potassium molar conc 4.3 mmol/L Normal 3.5-5.2 Comp rehensive Internal Medicine Work Phone: Comment on above: PATIENT WAS FASTINGP ERFORMED BY: ALEX Jessica Zntsni5509 [facility] [id number] Protein mass conc 6.7 g/dL Normal 6.0-8.5 Compreh ensive Internal Medicine Work Phone: Comment on above: PATIENT WAS FASTINGP ERFORMED BY: ALEX Jessicadaniella Lmyzob8051 [facility] [id number] Sodium molar conc 141 mmol/L Normal 134-144 Compreh ensive Internal Medicine Work Phone: Comment on above: PATIENT WAS FASTINGP ERFORMED BY: ALEX [facility]Scot[facility] Fmqjfq0438 [facility] [id number] Urea nitrogen mass conc 17 mg/dL Normal 8-27 [facility] Work Phone: Comment on above: PATIENT WAS FASTINGP ERFORMED BY: ALEX Jessicadaniella Mgamhw0699 [facility] [id number] Urea nitrogen/Creatinine mass ratio 20 mg/mg Normal 11-26 [facility] Work Phone: Comment on above: PATIENT WAS FASTINGP ERFORMED BY: ALEX AjithMitchell V[place] 9532370 [facility] [id number] CBC with auto diff ([id number])Or dered By: Coil Maker on 03-14-2015 Basophils #/vol (Bld) 0.0 {x10E3/uL} Normal 0.0-0.2 [facility] Work Phone: Comment on above: recheck in 8 weeks; PATIENT NOT FASTINGPERFORMED BY: ALEX [place] 4996970 [facility] [id number] Information: [id number] Basophils (Bld) [#/Vol] 0.0 10*3/uL Normal 0.0-0.2 [facility]; [facility] Work Phone: Basophils Auto #/vol (Bld) 0.0 {x10E3/uL} Normal 0.0-0.2 [facility] Work Phone: Basophils/100 WBC (Bld) 1 % Normal [facility] Work Phone: Comment on above: recheck in 8 weeks; PATIENT NOT FASTINGPERFORMED BY: [employer]70 [facility] [id number] Information: [id number] Basophils/100 WBC Auto (Bld) 1 % Normal [facility] Work Phone: Eosinophils #/vol (Bld) 0.2 {x10E3/uL} Normal 0.0-0.4 [facility] Work Phone: Comment on above: recheck in 8 weeks; PATIENT NOT FASTINGPERFORMED BY: zeenworldlin6370 [facility] [id number] Information: [id number] Eosinophils (Bld) [#/Vol] 0.2 10*3/uL Normal 0.0-0.4 [facility]; [facility] Work Phone: Eosinophils Auto #/vol (Bld) 0.2 {x10E3/uL} Normal 0.0-0.4 [facility] Work Phone: Eosinophils/100 WBC (Bld) 5 % Normal [facility] Work Phone: Comment on above: recheck in 8 weeks; PATIENT NOT FASTINGPERFORMED BY: Cued Fqihor9057 [facility] [id number] Information: [id number] Eosinophils/100 WBC Auto (Bld) 5 % Normal [facility] Work Phone: Erythrocyte distribution width Auto Ratio (RBC) 13.7 % Normal 12.3-15.4 [facility] Work Phone: Erythrocyte distribution width Ratio (RBC) 13.7 % Normal 12.3-15.4 [facility] Work Phone: Comment on above: recheck in 8 weeks; PATIENT NOT FASTINGPERFORMED BY: ALEX Jessicadaniella Aesnbl4226 [facility] [id number] Information: [id number] Hematocrit Auto Volume Fraction (Bld) 34.6 % Normal 34.0-46.6 [facility] Internal Medicine Work Phone: Hematocrit Volume Fraction (Bld) 34.6 % Normal 34.0-46.6 [facility] Internal Medicine Work Phone: Comment on above: recheck in 8 weeks; PATIENT NOT FASTINGPERFORMED BY: ALEX [facility] Zxhzom1070 [facility] [id number] Information: [id number] Hemoglobin mass conc (Bld) 11.4 g/dL Normal 11.1-15.9 [facility] Work Phone: Comment on above: recheck in 8 weeks; PATIENT NOT FASTINGPERFORMED BY: ALEX [place] 4996970 [facility] [id number] Information: [id number] Immature granulocytes #/vol (Bld) 0.0 {x10E3/uL} Normal 0.0-0.1 [facility] Work Phone: Comment on above: recheck in 8 weeks; PATIENT NOT FASTINGPERFORMED BY: ALEX [facility]6370 [facility] [id number] Information: [id number] Immature granulocytes (Bld) [#/Vol] 0.0 10*3/uL Normal 0.0-0.1 [facility]; [facility] Work Phone: Immature granulocytes/100 WBC (Bld) 0 % Normal [facility] Work Phone: Comment on above: recheck in 8 weeks; PATIENT NOT FASTINGPERFORMED BY: [place] 2876870 [facility] [id number] Information: [id number] Lymphocytes #/vol (Bld) 1.9 {x10E3/uL} Normal 0.7-3.1 [facility] Work Phone: Comment on above: recheck in 8 weeks; PATIENT NOT FASTINGPERFORMED BY: ALEX PacketSledTravis ManleyYsyhzw4321 [facility] [id number] Information: [id number] Lymphocytes (Bld) [#/Vol] 1.9 10*3/uL Normal 0.7-3.1 [facility]; [facility] Work Phone: Lymphocytes Auto #/vol (Bld) 1.9 {x10E3/uL} Normal 0.7-3.1 [facility] Work Phone: Lymphocytes/100 WBC (Bld) 43 % Normal [facility] Work Phone: Comment on above: recheck in 8 weeks; PATIENT NOT FASTINGPERFORMED BY: ALEX [employer]act[employer] Technologiesdaniella ManleyMwkfgv6877 [facility] [id number] Information: [id number] Lymphocytes/100 WBC Auto (Bld) 43 % Normal [facility] Work Phone: MCH Auto Entitic mass (RBC) 28.9 pg Normal 26.6-33.0 [facility] Work Phone: MCH Entitic mass (RBC) 28.9 pg Normal 26.6-33.0 [facility] Work Phone: Comment on above: recheck in 8 weeks; PATIENT NOT FASTINGPERFORMED BY: ALEX [employer] TechnologiesSaint Clare's Hospital at SussexIcznwq8335 [facility] [id number] Information: [id number] MCHC Auto mass conc (RBC) 32.9 g/dL Normal 31.5-35.7 [facility] Work Phone: MCHC mass conc (RBC) 32.9 g/dL Normal 31.5-35.7 [facility] Internal [facility] Work Phone: Comment on above: recheck in 8 weeks; PATIENT NOT FASTINGPERFORMED BY: ALEX [facility]6370 [facility] [id number] Information: [id number] MCV Auto Entitic volume (RBC) 88 fL Normal 79-97 [facility] Work Phone: MCV Entitic volume (RBC) 88 fL Normal 79-97 [facility] Work Phone: Comment on above: recheck in 8 weeks; PATIENT NOT FASTINGPERFORMED BY: ALEX [place] 4996970 [facility] [id number] Information: [id number] Monocytes #/vol (Bld) 0.2 {x10E3/uL} Normal 0.1-0.9 [facility] Work Phone: Comment on above: recheck in 8 weeks; PATIENT NOT FASTINGPERFORMED BY: ALEX [place] 4996970 [facility] [id number] Information: [id number] Monocytes (Bld) [#/Vol] 0.2 10*3/uL Normal 0.1-0.9 [facility]; [facility] Work Phone: Monocytes Auto #/vol (Bld) 0.2 {x10E3/uL} Normal 0.1-0.9 [facility] Work Phone: Monocytes/100 WBC (Bld) 5 % Normal [facility] Work Phone: Comment on above: recheck in 8 weeks; PATIENT NOT FASTINGPERFORMED BY: ALEX [facility]6370 [facility] [id number] Information: [id number] Monocytes/100 WBC Auto (Bld) 5 % Normal [facility] Work Phone: Neutrophils #/vol (Bld) 2.0 {x10E3/uL} Normal 1.4-7.0 [facility] Work Phone: Comment on above: recheck in 8 weeks; PATIENT NOT FASTINGPERFORMED BY: ALEX [place] 4996970 [facility] [id number] Information: [id number] Neutrophils (Bld) [#/Vol] 2.0 10*3/uL Normal 1.4-7.0 [facility]; [facility] Work Phone: Neutrophils Auto #/vol (Bld) 2.0 {x10E3/uL} Normal 1.4-7.0 [facility] Work Phone: Neutrophils/100 WBC (Bld) 46 % Normal [facility] Work Phone: Comment on above: recheck in 8 weeks; PATIENT NOT FASTINGPERFORMED BY: ALEX [employer] Obyhyo0270 RewardpodNovant Health Ball[facility] [id number] Information: [id number] Neutrophils/100 WBC Auto (Bld) 46 % Normal [facility] Work Phone: Platelets #/vol (Bld) 224 {x10E3/uL} Normal 150-379 [facility] Work Phone: Comment on above: recheck in 8 weeks; PATIENT NOT FASTINGPERFORMED BY: ALEX [employer] Bkhvug5413 RewardpodNovant Health Ballant[facility] [id number] Information: [id number] Platelets (Bld) [#/Vol] 224 10*3/uL Normal 150-379 [facility]; [facility] Internal Medicine Work Phone: Platelets Auto #/vol (Bld) 224 {x10E3/uL} Normal 150-379 [facility] Work Phone: RBC #/vol (Bld) 3.95 {x10E6/uL} Normal 3.77-5.28 [facility] Internal Medicine Work Phone: Comment on above: recheck in 8 weeks; PATIENT NOT FASTINGPERFORMED BY: [employer] Sldnzs3488 [address] Thoughtful MoversNovant Health Ballant[facility] Center [id number] Information: [id number] RBC (Bld) [#/Vol] 3.95 10*6/uL Normal 3.77-5.28 [facility] Internal Medicine; [facility] Internal Medicine Work Phone: RBC Auto #/vol (Bld) 3.95 {x10E6/uL} Normal 3.77-5.28 [facility] Work Phone: WBC #/vol (Bld) 4.4 {x10E3/uL} Normal 3.4-10.8 Compr ehensive Internal Medicine Work Phone: Comment on above: recheck in 8 weeks; PATIENT NOT FASTINGPERFORMED BY: [facility] Bfovwy6173 [facility] [id number] Information: [id number] WBC (Bld) [#/Vol] 4.4 10*3/uL Normal 3.4-10.8 Compre hensive Internal Medicine; [facility] Work Phone: WBC Auto #/vol (Bld) 4.4 {x10E3/uL} Normal 3.4-10.8 [facility] Work Phone: Urinalysis, Office ([id number])Or dered By: Bailee Mckeon on 01-17-2015 Bilirubin [...] strip Ql (U) Non Hemolyzed Moderate Normal Comprehen sive Internal Medicine Work Phone: Ketones Ql (U) [...] Work Phone: CBC With Differential/Platel etOrdered By: Coil Maker on 01-10-2015 Basophils #/vol (Bld) 0.0 {x10E3/uL} Normal 0.0-0.2 [facility] Work Phone: Comment on above: PATIENT WAS FASTINGP ERFORMED BY: [employer]70 [facility] [id number] Information: [id number] Basophils Auto #/vol (Bld) 0.0 {x10E3/uL} Normal 0.0-0.2 [facility] Work Phone: Basophils/100 WBC (Bld) 1 % Normal [facility] Work Phone: Comment on above: PATIENT WAS FASTINGP ERFORMED BY: zeenworldlin6370 GigaomUNC Health Johnston [id number] Information: [id number] Basophils/100 WBC Auto (Bld) 1 % Normal [facility] Work Phone: Eosinophils #/vol (Bld) 0.2 {x10E3/uL} Normal 0.0-0.4 [facility] Work Phone: Comment on above: PATIENT WAS FASTINGP ERFORMED BY: ALEX [facility] HospitalTravis ManleyRmgivs2077 [facility] [id number] Information: [id number] Eosinophils Auto #/vol (Bld) 0.2 {x10E3/uL} Normal 0.0-0.4 [facility] Work Phone: Eosinophils/100 WBC (Bld) 5 % Normal [facility] Work Phone: Comment on above: PATIENT WAS FASTINGP ERFORMED BY: ALEX Manley[address] [id number] Information: [id number] Eosinophils/100 WBC Auto (Bld) 5 % Normal [facility] Work Phone: Erythrocyte distribution width Auto Ratio (RBC) 13.3 % Normal 12.3-15.4 [facility] Work Phone: Erythrocyte distribution width Ratio (RBC) 13.3 % Normal 12.3-15.4 [facility] Work Phone: Comment on above: PATIENT WAS FASTINGP ERFORMED BY: ALEX [facility] HospitalTravis [address] [id number] Information: [id number] Hematocrit Auto Volume Fraction (Bld) 35.3 % Normal 34.0-46.6 [facility] Internal Medicine Work Phone: Hematocrit Volume Fraction (Bld) 35.3 % Normal 34.0-46.6 [facility] Work Phone: Comment on above: PATIENT WAS FASTINGP ERFORMED BY: ALEX [place] 4996970 [facility] [id number] Information: [id number] Hemoglobin mass conc (Bld) 11.7 g/dL Normal 11.1-15.9 [facility] Work Phone: Comment on above: PATIENT WAS FASTINGP ERFORMED BY: [facility]6370 [facility] [id number] Information: [id number] Immature granulocytes #/vol (Bld) 0.0 {x10E3/uL} Normal 0.0-0.1 [facility] Work Phone: Comment on above: PATIENT WAS FASTINGP ERFORMED BY: [address] [id number] Information: [id number] Immature granulocytes/100 WBC (Bld) 0 % Normal [facility] Work Phone: Comment on above: PATIENT WAS FASTINGP ERFORMED BY: [address] [id number] Information: [id number] Lymphocytes #/vol (Bld) 1.3 {x10E3/uL} Normal 0.7-3.1 [facility] Work Phone: Comment on above: PATIENT WAS FASTINGP ERFORMED BY: [place] 2876870 [facility] [id number] Information: [id number] Lymphocytes Auto #/vol (Bld) 1.3 {x10E3/uL} Normal 0.7-3.1 [facility] Work Phone: Lymphocytes/100 WBC (Bld) 42 % Normal [facility] Work Phone: Comment on above: PATIENT WAS FASTINGP ERFORMED BY: [address] [id number] Information: [id number] Lymphocytes/100 WBC Auto (Bld) 42 % Normal [facility] Work Phone: MCH Auto Entitic mass (RBC) 28.8 pg Normal 26.6-33.0 [facility] Work Phone: MCH Entitic mass (RBC) 28.8 pg Normal 26.6-33.0 [facility] Work Phone: Comment on above: PATIENT WAS FASTINGP ERFORMED BY: [facility]6370 [facility] [id number] Information: [id number] MCHC Auto mass conc (RBC) 33.1 g/dL Normal 31.5-35.7 [facility] Work Phone: MCHC mass conc (RBC) 33.1 g/dL Normal 31.5-35.7 Comp [facility] Internal Medicine Work Phone: Comment on above: PATIENT WAS FASTINGP ERFORMED BY: [address] [id number] Information: [id number] MCV Auto Entitic volume (RBC) 87 fL Normal 79-97 [facility] Work Phone: MCV Entitic volume (RBC) 87 fL Normal 79-97 [facility] Work Phone: Comment on above: PATIENT WAS FASTINGP ERFORMED BY: [address] [id number] Information: [id number] Monocytes #/vol (Bld) 0.2 {x10E3/uL} Normal 0.1-0.9 [facility] Work Phone: Comment on above: PATIENT WAS FASTINGP ERFORMED BY: [address] [id number] Information: [id number] Monocytes Auto #/vol (Bld) 0.2 {x10E3/uL} Normal 0.1-0.9 [facility] Work Phone: Monocytes/100 WBC (Bld) 5 % Normal [facility] Work Phone: Comment on above: PATIENT WAS FASTINGP ERFORMED BY: [place] 2876870 [facility] [id number] Information: [id number] Monocytes/100 WBC Auto (Bld) 5 % Normal [facility] Work Phone: Neutrophils #/vol (Bld) 1.5 {x10E3/uL} Normal 1.4-7.0 [facility] Work Phone: Comment on above: PATIENT WAS FASTINGP ERFORMED BY: ALEX [place] 4996970 [facility] [id number] Information: [id number] Neutrophils Auto #/vol (Bld) 1.5 {x10E3/uL} Normal 1.4-7.0 [facility] Work Phone: Neutrophils/100 WBC (Bld) 47 % Normal [facility] Work Phone: Comment on above: PATIENT WAS FASTINGP ERFORMED BY: ALEX [place] 4996970 [facility] [id number] Information: [id number] Neutrophils/100 WBC Auto (Bld) 47 % Normal [facility] Work Phone: Platelets #/vol (Bld) 225 {x10E3/uL} Normal 150-379 [facility] Work Phone: Comment on above: PATIENT WAS FASTINGP ERFORMED BY: [facility]6370 [facility] [id number] Information: [id number] Platelets Auto #/vol (Bld) 225 {x10E3/uL} Normal 150-379 [facility] Work Phone: RBC #/vol (Bld) 4.06 {x10E6/uL} Normal 3.77-5.28 [facility] Internal Medicine Work Phone: Comment on above: PATIENT WAS FASTINGP ERFORMED BY: [facility]6370 [facility] [id number] Information: [id number] RBC Auto #/vol (Bld) 4.06 {x10E6/uL} Normal 3.77-5.28 [facility] Work Phone: WBC #/vol (Bld) 3.2 {x10E3/uL} Abnormal 3.4-10.8 [facility] Internal Medicine Work Phone: Comment on above: PATIENT WAS FASTINGP ERFORMED BY: ALEX [facility] Auolzx9464 [facility] [id number] Information: [id number] WBC Auto #/vol (Bld) 3.2 {x10E3/uL} Abnormal 3.4-10.8 [facility] Internal Medicine Work Phone: Comp. Metabolic Panel (14)Or dered By: Coil Maker on 01-10-2015 Albumin mass conc 4.0 g/dL Normal 3.6-4.8 [facility] Internal Medicine Work Phone: Comment on above: PATIENT WAS FASTINGP ERFORMED BY: ALEX LabTravis ManleyPgdbbc7964 [facility] [id number] Albumin/Globulin mass ratio 1.6 {ratio} Normal 1.1-2.5 [facility] Internal Medicine Work Phone: Comment on above: PATIENT WAS FASTINGP ERFORMED BY: ALEX LabScot[facility] Hlwhes0561 [facility] [id number] ALP enzyme act/vol 82 [iU]/L Normal 39-117 [facility] Internal Medicine Work Phone: Comment on above: PATIENT WAS FASTINGP ERFORMED BY: ALEX LabTravis ManleyCgidkt2775 [facility] [id number] ALT enzyme act/vol 10 [iU]/L Normal 0-32 [facility] Internal Medicine Work Phone: Comment on above: PATIENT WAS FASTINGP ERFORMED BY: ALEX [facility] Olkokn4466 [facility] [id number] AST enzyme act/vol 18 [iU]/L Normal 0-40 [facility] Internal Medicine Work Phone: Comment on above: PATIENT WAS FASTINGP ERFORMED BY: ALEX [facility] Wuwvyh3279 [facility] [id number] Bilirubin mass conc 0.4 mg/dL Normal 0.0-1.2 [facility] Internal Medicine Work Phone: Comment on above: PATIENT WAS FASTINGP ERFORMED BY: ALEX LopezSaint Clare's Hospital at SussexFdfbiy5231 [address] [facility] [id number] Calcium mass conc 9.6 mg/dL Normal 8.7-10.3 Compreh ensive Internal Medicine Work Phone: Comment on above: PATIENT WAS FASTINGP ERFORMED BY: ALEX [facility] Tkysvg1829 [address] [facility]in [place] [id number] Chloride molar conc 105 mmol/L Normal 97-108 Compr ehensive Internal Medicine Work Phone: Comment on above: PATIENT WAS FASTINGP ERFORMED BY: [facility] Ofurqj0619 [facility] [id number] CO2 molar conc 24 mmol/L Normal 18-29 Comprehens shanta Internal Medicine Work Phone: Comment on above: PATIENT WAS FASTINGP ERFORMED BY: Jessica Wcyzxz8242 [facility] [id number] Creatinine mass conc 0.96 mg/dL Normal 0.57-1.00 Comp rehensive Internal Medicine Work Phone: Comment on above: PATIENT WAS FASTINGP ERFORMED BY: [facility]Scot[facility] Inbujr8182 [facility] [id number] GFR/1.73 sq M predicted among blacks CKD-EPI vol rate/area (S/P/Bld) 70 mL/min/1.73 Normal Comprehensiv e Internal Medicine Work Phone: Comment on above: PATIENT WAS FASTINGP ERFORMED BY: [facility]Sc[facility] Irndez2867 [facility] [id number] GFR/1.73 sq M predicted among non-blacks CKD-EPI vol rate/area (S/P/Bld) 61 mL/min/1.73 Normal [facility] Work Phone: Comment on above: PATIENT WAS FASTINGP ERFORMED BY: [facility] Szgsez9969 [facility] [id number] Globulin Calculated mass conc (S) 2.5 g/dL Normal 1.5-4.5 [facility] Work Phone: Globulin mass conc (S) 2.5 g/dL Normal 1.5-4.5 [facility] Work Phone: Comment on above: PATIENT WAS FASTINGP ERFORMED BY: ALEX AjithTravis ManleyDlobsq1589 [facility] [id number] Glucose mass conc 96 mg/dL Normal 65-99 Compreh ensive Internal Medicine Work Phone: Comment on above: PATIENT WAS FASTINGP ERFORMED BY: ALEX Manleylin6370 [facility] [id number] Potassium molar conc 4.5 mmol/L Normal 3.5-5.2 Comp rehensive Internal Medicine Work Phone: Comment on above: PATIENT WAS FASTINGP ERFORMED BY: ALEX Manleylin6370 [facility] [id number] Protein mass conc 6.5 g/dL Normal 6.0-8.5 Compreh ensive Internal Medicine Work Phone: Comment on above: PATIENT WAS FASTINGP ERFORMED BY: ALEX Manleylin6370 [facility] [id number] Sodium molar conc 136 mmol/L Normal 134-144 Compreh ensive Internal Medicine Work Phone: Comment on above: PATIENT WAS FASTINGP ERFORMED BY: ALEX Manleylin6370 [facility] [id number] Urea nitrogen mass conc 16 mg/dL Normal 8-27 [facility] Work Phone: Comment on above: PATIENT WAS FASTINGP ERFORMED BY: ALEX Manleylin6370 [facility] [id number] Urea nitrogen/Creatinine mass ratio 17 mg/mg Normal 11-26 [facility] Work Phone: Comment on above: PATIENT WAS FASTINGP ERFORMED BY: ALEX LabTravis ManleyBuybpu1155 [facility] [id number] Lipid Panel With LDL/HDL Rat ioOrdered By: Coil Maker on 01-10-2015 Cholesterol in HDL mass conc 85 mg/dL Normal [facility] Work Phone: Comment on above: According to ATP-III Guidelines, HDL-C >59 mg/dL is considered anegative risk factor for CHD. PATIENT WAS FASTINGP ERFORMED BY: ALEX LabTravis Xmzawx7071 [facility] [id number] Cholesterol in LDL mass conc 126 mg/dL Abnormal 0-99 [facility] Work Phone: Comment on above: PATIENT WAS FASTINGP ERFORMED BY: ALEX LabTravis ManleySawhtm1532 [facility] [id number] Cholesterol in LDL/Cholesterol in HDL mass ratio 1.5 {ratio_units} Normal 0.0-3.2 [facility] Work Phone: Comment on above: LDL/HDL Ratio Men Wo men 1/2 Avg.Risk 1.0 1.5 Avg.Risk 3.6 3.2 2X Avg.Risk 6.2 5.0 3X Avg.Risk 8.0 6.1 PATIENT WAS FASTINGP ERFORMED BY: ALEX LabTravis ManleyZqvkgt5001 [facility] [id number] Cholesterol in VLDL mass conc 10 mg/dL Normal 5-40 [facility] Work Phone: Comment on above: PATIENT WAS FASTINGP ERFORMED BY: ALEX LabTravis ManleyAikqmo0122 [facility] [id number] Cholesterol mass conc 221 mg/dL Abnormal 100-199 [facility] prehensive Internal Medicine Work Phone: Comment on above: PATIENT WAS FASTINGP ERFORMED BY: ALEX LabTravis ManleyVwqhtd5648 [facility] [id number] Triglyceride mass conc 52 mg/dL Normal 0-149 [facility] Work Phone: Comment on above: PATIENT WAS FASTINGP ERFORMED BY: ALEX LabCodaniella Pauevq3385 [facility] [id number] Microalb/Creat Ratio, Randm UrOrdered By: Coil Maker on 01-10-2015 Albumin DL <= 20 mg/L mass conc (U) 8.4 ug/mL Normal 0.0-17.0 [facility] Work Phone: Comment on above: PATIENT WAS FASTINGP ERFORMED BY: ALEX [facility] Ymoxbd0138 [facility] [id number] Albumin/Creatinine mass ratio (U) 11.5 {mg/g_creat} Normal 0.0-30.0 [facility] Work Phone: Comment on above: PATIENT WAS FASTINGP ERFORMED BY: ALEX [facility] Llogxo8237 [facility] [id number] Creatinine mass conc (U) 73.1 mg/dL Normal 15.0-278.0 [facility] Work Phone: Comment on above: PATIENT WAS FASTINGP ERFORMED BY: ALEX [facility]6370 [facility] [id number] Microscopic ExaminationOrder ed By: Coil Maker on 01-10-2015 Bacteria LM.HPF #/area (Urine sed) Few Normal [facility] Work Phone: Comment on above: PATIENT WAS FASTINGP ERFORMED BY: ALEX [facility] Wogmni0878 [facility] [id number] Epithelial cells LM.HPF #/area (Urine sed) 0-10 Normal 0 - 10 [facility] Work Phone: Comment on above: PATIENT WAS FASTINGP ERFORMED BY: ALEX [facility]6370 [facility] [id number] Mucus LM Ql (Urine sed) Present Normal [facility] Work Phone: Mucus Ql (Urine sed) Present Normal Comp rehensive Internal Medicine Work Phone: Comment on above: PATIENT WAS FASTINGP ERFORMED BY: ALEX [facility]6370 [facility] [id number] RBC LM.HPF #/area (Urine sed) 3-10 Abnormal 0 - 2 [facility] Work Phone: Comment on above: PATIENT WAS FASTINGP ERFORMED BY: ALEX [facility]6370 [facility] [id number] WBC LM.HPF #/area (Urine sed) 6-10 Abnormal 0 - 5 [facility] Work Phone: Comment on above: PATIENT WAS FASTINGP ERFORMED BY: ALEX [facility] Mvpneg8774 [address]ila RoadDublin [place] [id number] Urinalysis, CompleteOrdered By: Coil Maker on 01-10-2015 Appearance Nom (U) Clear Normal Compre hensive Internal Medicine Work Phone: Comment on above: PATIENT WAS FASTINGP ERFORMED BY: ALEX [facility] Jdlwef7150 Avila RoadDublin [place] [id number] Bilirubin Ql (U) Negative Normal Comprehe nsive Internal Medicine Work Phone: Comment on above: PATIENT WAS FASTINGP ERFORMED BY: ALEX [facility] Crwtba5365 [address]ila RoadDublin [place] [id number] Color Nom (U) Yellow Normal Comprehensi ve Internal Medicine Work Phone: Comment on above: PATIENT WAS FASTINGP ERFORMED BY: ALEX LabCodaniella ManleyWjvedk4031 [address]ila RoadDublin [place] [id number] Glucose Ql (U) Negative Normal Comprehens shanta Internal Medicine Work Phone: Comment on above: PATIENT WAS FASTINGP ERFORMED BY: ALEX [facility] Liyrbw6774 [address]ila RoadDublin [place] [id number] Hemoglobin Ql (U) 2+ Abnormal Compreh ensive Internal Medicine Work Phone: Comment on above: PATIENT WAS FASTINGP ERFORMED BY: ALEX [facility] Xgdxpi7304 [address] RoadDublin [place] [id number] Hemoglobin Test strip Ql (U) 2+ Abnormal [facility] Work Phone: Ketones Ql (U) Negative Normal Comprehens shanta Internal Medicine Work Phone: Comment on above: PATIENT WAS FASTINGP ERFORMED BY: ALEX [facility] Najdza3572 [address] RoadDublin [place] [id number] Leukocyte esterase Test strip Ql (U) 2+ Abnormal [facility] Work Phone: Comment on above: PATIENT WAS FASTINGP ERFORMED BY: ALEX [facility] Nrzhyh8968 [address] RoadDublin [place] [id number] Microscopic observation LM Nom (Urine sed) See below: Normal [facility] Work Phone: Comment on above: Microscopic was jared cated and was performed. PATIENT WAS FASTINGP ERFORMED BY: ALEX [facility] Oodxmz3899 Avila RoadDublin [place] [id number] Nitrite Ql (U) Negative Normal Comprehens shanta Internal Medicine Work Phone: Comment on above: PATIENT WAS FASTINGP ERFORMED BY: [facility]Co Nbcedh0913 [address] RoadDublin [place] [id number] Nitrite Test strip Ql (U) Negative Normal [facility] Work Phone: pH (U) 7.0 [pH] Normal 5.0-7.5 [facility] Work Phone: Comment on above: PATIENT WAS FASTINGP ERFORMED BY: ALEX [facility] Jeyvvx1786 [address] Roadblin [place] [id number] pH Test strip (U) 7.0 [pH] Normal 5.0-7.5 Compreh ensive Internal Medicine Work Phone: Protein Ql (U) Negative Normal Comprehens shanta Internal Medicine Work Phone: Comment on above: PATIENT WAS FASTINGP ERFORMED BY: [facility]Sc[facility] Wrqffy2265 [address] [facility] Hospitalin [place] [id number] Protein Test strip Ql (U) Negative Normal [facility] Work Phone: Specific gravity Relative Density (U) 1.016 1 Normal 1.005-1.03 0 [facility] Work Phone: Comment on above: PATIENT WAS FASTINGP ERFORMED BY: ALEX [facility]Sc[facility] Wakpcq9472 [address] [facility]in [place] [id number] Urobilinogen Test strip mass conc (U) 1.0 mg/dL Normal 0.0-1.9 Comprehensiv e Internal Medicine Work Phone: Comment on above: PATIENT WAS FASTINGP ERFORMED BY: ALEX [facility] Hdehzu0559 [address] [facility] Hospitalbl[facility] [place] [id number] METABOLIC PANEL, COMPREHENSI VE ([id number])Ordered By: Coil Maker on 12-15-2013 Albumin mass conc 4.5 g/dL Normal 3.6-4.8 Compreh ensive Internal Medicine Work Phone: Comment on above: PATIENT NOT FASTINGP ERFORMED BY: ALEX Villegas6370 [facility] WaltonUNC Health Johnston [id number] Information: [id number],DIFFICULT DR WORRELL Albumin/Globulin mass ratio 1.9 {ratio} Normal 1.1-2.5 [facility] Work Phone: Comment on above: PATIENT NOT FASTINGP ERFORMED BY: ALEX Villegas6370 [facility] CareAriUNC Health Johnston [id number] Information: [id number],DIFFICULT DR WORRELL ALP [Catalytic activity/Vol] 77 U/L Normal 39-117 [facility]; [facility] Internal Medicine Work Phone: ALP enzyme act/vol 77 [iU]/L Normal 39-117 [facility] Internal Medicine Work Phone: Comment on above: PATIENT NOT FASTINGP ERFORMED BY: ALEX Villegas6370 [facility] [id number] Information: [id number],DIFFICULT DR WORRELL ALT [Catalytic activity/Vol] 11 U/L Normal 0-32 [facility]; [facility] Internal Medicine Work Phone: ALT enzyme act/vol 11 [iU]/L Normal 0-32 [facility] Internal Medicine Work Phone: Comment on above: PATIENT NOT FASTINGP ERFORMED BY: ALEX Villegas6370 [facility] [id number] Information: [id number],DIFFICULT DR WORRELL AST [Catalytic activity/Vol] 19 U/L Normal 0-40 [facility]; [facility] Internal Medicine Work Phone: AST enzyme act/vol 19 [iU]/L Normal 0-40 [facility] Internal Medicine Work Phone: Comment on above: PATIENT NOT FASTINGP ERFORMED BY: ALEX Villegas6370 [facility] [id number] Information: [id number],DIFFICULT DR WORRELL Bilirubin mass conc 0.3 mg/dL Normal 0.0-1.2 Compr ehensive Internal Medicine Work Phone: Comment on above: PATIENT NOT FASTINGP ERFORMED BY: ALEX LabCodaniella VillegasEkxmid9669 [address] [facility] LivoniaAriUNC [facility] [id number] Information: [id number],DIFFICULT DR WORRELL Calcium mass conc 9.5 mg/dL Normal 8.6-10.2 Compreh ensive Internal Medicine Work Phone: Comment on above: PATIENT NOT FASTINGP ERFORMED BY: ALEX LabCodaniella ManleyDfpmtv7811 [address] [facility] LivoniaAriUNC Health [facility] [id number] Information: [id number],DIFFICULT DR WORRELL Chloride molar conc 102 mmol/L Normal 97-108 Compr ehensive Internal Medicine Work Phone: Comment on above: PATIENT NOT FASTINGP ERFORMED BY: ALEX Manleylin63Shari [address] [facility] [id number] Information: [id number],DIFFICULT DR WORRELL CO2 molar conc 22 mmol/L Normal 19-28 Comprehens shanta Internal Medicine Work Phone: Comment [...] - 29 PATIENT NOT FASTINGP ERFORMED BY: ALEX Manleylin6370 [facility] [id number] Information: [id number],DIFFICULT DR WORRELL Creatinine mass conc 1.10 mg/dL Abnormal 0.57-1.00 Comp [facility]usensive [facility] Work Phone: Comment on above: PATIENT NOT FASTINGP ERFORMED BY: ALEX CansecoCodaniella ManleyBtmbbb9381 AvilaMissouri [facility] Center [id number] Information: [id number],DIFFICULT DR WORRELL GFR/1.73 sq M predicted among blacks CKD-EPI vol rate/area (S/P/Bld) 60 mL/min/1.73 Normal Comprehensiv e Internal Medicine Work Phone: Comment on above: PATIENT NOT FASTINGP ERFORMED BY: ALEX Villegas6[address] [facility] LivoniaAriUNC [facility] [id number] Information: [id number],DIFFICULT DR WORRELL GFR/1.73 sq M predicted among non-blacks CKD-EPI vol rate/area (S/P/Bld) 52 mL/min/1.73 Abnormal [facility] Work Phone: Comment on above: PATIENT NOT FASTINGP ERFORMED BY: ALEX Villegas6370 [facility] [id number] Information: [id number],DIFFICULT DR WORRELL Globulin Calculated mass conc (S) 2.4 g/dL Normal 1.5-4.5 [facility] Work Phone: Globulin mass conc (S) 2.4 g/dL Normal 1.5-4.5 [facility] Work Phone: Comment on above: PATIENT NOT FASTINGP ERFORMED BY: ALEX Villegas6370 [facility]ila[facility] [id number] Information: [id number],DIFFICULT DR WORRELL Glucose mass conc 95 mg/dL Normal 65-99 Compreh ensive Internal Medicine Work Phone: Comment on above: PATIENT NOT FASTINGP ERFORMED BY: ALEX Villegas63Shari AvitiaMissouri [facility] Center [id number] Information: [id number],DIFFICULT DR WORRELL Potassium molar conc 4.7 mmol/L Normal 3.5-5.2 Comp rehensive Internal Medicine Work Phone: Comment on above: PATIENT NOT FASTINGP ERFORMED BY: ALEX Villegas6370 [facility]ila[facility] [id number] Information: [id number],DIFFICULT DR WORRELL Protein mass conc 6.9 g/dL Normal 6.0-8.5 Compreh ensive Internal Medicine Work Phone: Comment on above: PATIENT NOT FASTINGP ERFORMED BY: ALEX Villgeas63Shari AvitiaMissouri Baptist Medical Center [id number] Information: [id number],DIFFICULT DR WORRELL Sodium molar conc 141 mmol/L Normal 134-144 Compreh ensive Internal Medicine Work Phone: Comment on above: PATIENT NOT FASTINGP ERFORMED BY: ALEX [facility] Niefxf0630 [facility]ilaMiss[facility] [id number] Information: [id number],DIFFICULT DR WORRELL Urea nitrogen mass conc 22 mg/dL Normal 8- [facility] Work Phone: Comment on above: PATIENT NOT FASTINGP ERFORMED BY: ALEX LabCodaniella ManleyWvmowq2197 AvilaMiss[facility] [id number] Information: [id number],DIFFICULT DR WORRELL Urea nitrogen/Creatinine mass ratio 20 mg/mg Normal - [facility] Work Phone: Comment on above: PATIENT NOT FASTINGP ERFORMED BY: ALEX [facility] Xsuvjp3316 [facility] [id number] Information: [id number],DIFFICULT DR WORRELL Rapid Flu (93169 x 2)Ordered By: Bailee Mckeon on 05-20-2013 FLUAV Ag IA Ql (Throat) Negative Normal [facility] Work Phone: FLUAV Ag IA Ql (Throat) Negative Normal [facility]; [facility] Work Phone: Rapid Strep Test, Office ([phone])Ordered By: Bailee Mckeon on 05-20-2013 S. pyogenes Ag EIA Ql (Throat) Negative Normal [facility]; [facility] Work Phone: S. pyogenes Ag IA Ql (Unsp spec) Negative Normal [facility] Work Phone: CBC WITH MANUAL DIFF (86300) Ordered By: Coil Maker on 04-15-2013 Basophils #/vol (Bld) 0.0 {x10E3/uL} Normal 0.0-0.2 [facility] Work Phone: Comment on above: PATIENT WAS FASTINGP ERFORMED BY: ALEX [facility]6370 [facility] [id number] Information: [id number] Basophils (Bld) [#/Vol] 0.0 10*3/uL Normal 0.0-0.2 [facility]; [facility] Work Phone: Basophils Auto #/vol (Bld) 0.0 {x10E3/uL} Normal 0.0-0.2 [facility] Work Phone: Basophils/100 WBC (Bld) 1 % Normal 0-3 [facility] Work Phone: Comment on above: PATIENT WAS FASTINGP ERFORMED BY: [address] [id number] Information: [id number] Basophils/100 WBC Auto (Bld) 1 % Normal 0-3 [facility] Work Phone: Eosinophils #/vol (Bld) 0.3 {x10E3/uL} Normal 0.0-0.4 [facility] Work Phone: Comment on above: PATIENT WAS FASTINGP ERFORMED BY: [address] [id number] Information: [id number] Eosinophils (Bld) [#/Vol] 0.3 10*3/uL Normal 0.0-0.4 [facility]; [facility] Work Phone: Eosinophils Auto #/vol (Bld) 0.3 {x10E3/uL} Normal 0.0-0.4 [facility] Work Phone: Eosinophils/100 WBC (Bld) 6 % Abnormal 0-5 [facility] Work Phone: Comment on above: PATIENT WAS FASTINGP ERFORMED BY: [place] 2876870 [facility] [id number] Information: [id number] Eosinophils/100 WBC Auto (Bld) 6 % Abnormal 0-5 [facility] Work Phone: Erythrocyte distribution width Auto Ratio (RBC) 13.8 % Normal 12.3-15.4 [facility] Work Phone: Erythrocyte distribution width Ratio (RBC) 13.8 % Normal 12.3-15.4 [facility] Work Phone: Comment on above: PATIENT WAS FASTINGP ERFORMED BY: ALEX LabCodaniella ManleySxyrkl5087 [facility] [id number] Information: [id number] Hematocrit Auto Volume Fraction (Bld) 35.1 % Normal 34.0-46.6 [facility] Internal Medicine Work Phone: Hematocrit Volume Fraction (Bld) 35.1 % Normal 34.0-46.6 [facility] Internal Medicine Work Phone: Comment on above: PATIENT WAS FASTINGP ERFORMED BY: ALEX [facility] HospitalTravis Villegas6370 [facility] [id number] Information: [id number] Hemoglobin mass conc (Bld) 11.8 g/dL Normal 11.1-15.9 [facility] Work Phone: Comment on above: PATIENT WAS FASTINGP ERFORMED BY: ALEX Manleylin6370 [facility] [id number] Information: [id number] Immature granulocytes #/vol (Bld) 0.0 {x10E3/uL} Normal 0.0-0.1 [facility] Work Phone: Comment on above: PATIENT WAS FASTINGP ERFORMED BY: ALEX LabCoSaint Clare's Hospital at SussexPwzfpt6014 [facility] [id number] Information: [id number] Immature granulocytes (Bld) [#/Vol] 0.0 10*3/uL Normal 0.0-0.1 [facility]; [facility] Work Phone: Immature granulocytes/100 WBC (Bld) 0 % Normal 0-2 [facility] Work Phone: Comment on above: PATIENT WAS FASTINGP ERFORMED BY: ALEX LabMitchell Ville 9532370 [facility] [id number] Information: [id number] Lymphocytes #/vol (Bld) 1.7 {x10E3/uL} Normal 0.7-3.1 [facility] Work Phone: Comment on above: PATIENT WAS FASTINGP ERFORMED BY: ALEX [place] 4996970 [facility] [id number] Information: [id number] Lymphocytes (Bld) [#/Vol] 1.7 10*3/uL Normal 0.7-3.1 [facility]; [facility] Work Phone: Lymphocytes Auto #/vol (Bld) 1.7 {x10E3/uL} Normal 0.7-3.1 [facility] Work Phone: Lymphocytes/100 WBC (Bld) 39 % Normal 14-46 [facility] Work Phone: Comment on above: PATIENT WAS FASTINGP ERFORMED BY: ALEX [address] [id number] Information: [id number] Lymphocytes/100 WBC Auto (Bld) 39 % Normal 14-46 [facility] Work Phone: MCH Auto Entitic mass (RBC) 29.9 pg Normal 26.6-33.0 [facility] Work Phone: MCH Entitic mass (RBC) 29.9 pg Normal 26.6-33.0 [facility] Work Phone: Comment on above: PATIENT WAS FASTINGP ERFORMED BY: [address] [id number] Information: [id number] MCHC Auto mass conc (RBC) 33.6 g/dL Normal 31.5-35.7 [facility] Work Phone: MCHC mass conc (RBC) 33.6 g/dL Normal 31.5-35.7 Comp [facility] Internal Medicine Work Phone: Comment on above: PATIENT WAS FASTINGP ERFORMED BY: [address] [place] [id number] Information: [id number] MCV Auto Entitic volume (RBC) 89 fL Normal 79-97 [facility] Work Phone: MCV Entitic volume (RBC) 89 fL Normal 79-97 [facility] Work Phone: Comment on above: PATIENT WAS FASTINGP ERFORMED BY: ALEX [address] [id number] Information: [id number] Monocytes #/vol (Bld) 0.3 {x10E3/uL} Normal 0.1-0.9 [facility] Work Phone: Comment on above: PATIENT WAS FASTINGP ERFORMED BY: [address] [id number] Information: [id number] Monocytes (Bld) [#/Vol] 0.3 10*3/uL Normal 0.1-0.9 [facility]; [facility] Work Phone: Monocytes Auto #/vol (Bld) 0.3 {x10E3/uL} Normal 0.1-0.9 [facility] Work Phone: Monocytes/100 WBC (Bld) 6 % Normal 4-12 [facility] Work Phone: Comment on above: PATIENT WAS FASTINGP ERFORMED BY: [place] 2876870 [facility] [id number] Information: [id number] Monocytes/100 WBC Auto (Bld) 6 % Normal 4-12 [facility] Work Phone: Neutrophils #/vol (Bld) 2.1 {x10E3/uL} Normal 1.4-7.0 [facility] Work Phone: Comment on above: PATIENT WAS FASTINGP ERFORMED BY: [place] 2876870 [facility] [id number] Information: [id number] Neutrophils (Bld) [#/Vol] 2.1 10*3/uL Normal 1.4-7.0 [facility]; [facility] Work Phone: Neutrophils Auto #/vol (Bld) 2.1 {x10E3/uL} Normal 1.4-7.0 [facility] Work Phone: Neutrophils/100 WBC (Bld) 48 % Normal 40-74 [facility] Work Phone: Comment on above: PATIENT WAS FASTINGP ERFORMED BY: PacketSledMitchell [place] 9532370 [facility] [id number] Information: [id number] Neutrophils/100 WBC Auto (Bld) 48 % Normal 40-74 [facility] Work Phone: Platelets #/vol (Bld) 224 {x10E3/uL} Normal 155-379 [facility] Work Phone: Comment on above: PATIENT WAS FASTINGP ERFORMED BY: Tactonic TechnologiesSaint Clare's Hospital at SussexTvuzmx4272 [facility] [id number] Information: [id number] Platelets (Bld) [#/Vol] 224 10*3/uL Normal 155-379 [facility]; [facility] Work Phone: Platelets Auto #/vol (Bld) 224 {x10E3/uL} Normal 155-379 [facility] Work Phone: RBC #/vol (Bld) 3.94 {x10E6/uL} Normal 3.77-5.28 [facility] Internal Medicine Work Phone: Comment on above: PATIENT WAS FASTINGP ERFORMED BY: [facility]6370 [facility] [id number] Information: [id number] RBC (Bld) [#/Vol] 3.94 10*6/uL Normal 3.77-5.28 [facility] Internal Medicine; [facility] Work Phone: RBC Auto #/vol (Bld) 3.94 {x10E6/uL} Normal 3.77-5.28 [facility] Internal Medicine Work Phone: WBC #/vol (Bld) 4.4 {x10E3/uL} Normal 3.4-10.8 Compr ehensive Internal Medicine Work Phone: Comment on above: PATIENT WAS FASTINGP ERFORMED BY: ALEX PacketSledTravis ManleyRelbbp0371 [address] [facility] MoversNovant Health [facility] [id number] Information: [id number] WBC (Bld) [#/Vol] 4.4 10*3/uL Normal 3.4-10.8 Compre hensj[facility] Internal [facility]; [facility] Work Phone: WBC Auto #/vol (Bld) 4.4 {x10E3/uL} Normal 3.4-10.8 [facility] Work Phone: LIPID PANEL ([id number])Ordered B y: Coil Maker on 04-15-2013 Cholesterol in HDL mass conc 88 mg/dL Normal [facility] Work Phone: Comment on above: According to ATP-III Guidelines, HDL-C >59 mg/dL is considered anegative risk factor for CHD. PATIENT WAS FASTINGP ERFORMED BY: ALEX Tactonic Technologiesdaniella Jibqjl8597 [address] DolosysUNC Health Johnston [id number] Cholesterol in LDL mass conc 106 mg/dL Abnormal 0-99 [facility] Work Phone: Comment on above: PATIENT WAS FASTINGP ERFORMED BY: ALEX [employer]6370 [address] DolosysUNC Health Johnston [id number] Cholesterol in LDL/Cholesterol in HDL mass ratio 1.2 {ratio_units} Normal 0.0-3.2 [facility] Work Phone: Comment on above: PATIENT WAS FASTINGP ERFORMED BY: ALEX [facility] Erqcns9616 [address] Dolosysin [place] [id number] Cholesterol in VLDL mass conc 12 mg/dL Normal 5-40 [facility] Work Phone: Comment on above: PATIENT WAS FASTINGP ERFORMED BY: ALEX Tactonic Technologiesrp Xmugds6095 [address] DolosysUNC Health Johnston [id number] Cholesterol mass conc 206 mg/dL Abnormal 100-199 [facility] prehensive Internal Medicine Work Phone: Comment on above: PATIENT WAS FASTINGP ERFORMED BY: ALEX LabCodaniella Tdvuto5631 [address] [facility] [id number] Triglyceride mass conc 62 mg/dL Normal 0-149 [facility] Work Phone: Comment on above: PATIENT WAS FASTINGP ERFORMED BY: ALEX LabCo Dpitav2988 [facility] [id number] METABOLIC PANEL, COMPREHENSI VE ([id number])Ordered By: Coil Maker on 04-15-2013 Albumin mass conc 4.3 g/dL Normal 3.6-4.8 Compreh [facility] Internal Medicine Work Phone: Comment on above: PATIENT WAS FASTINGP ERFORMED BY: ALEX LabTravis ManleyXqglhl5274 [facility] [id number] Albumin/Globulin mass ratio 1.6 {ratio} Normal 1.1-2.5 [facility] Work Phone: Comment on above: PATIENT WAS FASTINGP ERFORMED BY: [facility] Hddaig5403 [facility] [id number] ALP [Catalytic activity/Vol] 82 U/L Normal 47-112 [facility]; [facility] Internal Medicine Work Phone: ALP enzyme act/vol 82 [iU]/L Normal 47-112 [facility] Internal Medicine Work Phone: Comment on above: PATIENT WAS FASTINGP ERFORMED BY: LabCo Yepjcl4151 [facility] [id number] ALT [Catalytic activity/Vol] 15 U/L Normal 0-32 [facility]; [facility] Internal Medicine Work Phone: ALT enzyme act/vol 15 [iU]/L Normal 0-32 [facility] Internal Medicine Work Phone: Comment on above: PATIENT WAS FASTINGP ERFORMED BY: ALEX [facility] Nctmij2277 [facility] [id number] AST [Catalytic activity/Vol] 20 U/L Normal 0-40 [facility]; [facility] Internal Medicine Work Phone: AST enzyme act/vol 20 [iU]/L Normal 0-40 Compre [facility] Internal Medicine Work Phone: Comment on above: PATIENT WAS FASTINGP ERFORMED BY: ALEX [facility] Marxuo1482 [address]ila RoadDublin [place] [id number] Bilirubin mass conc 0.3 mg/dL Normal 0.0-1.2 Compr ensive Internal Medicine Work Phone: Comment on above: PATIENT WAS FASTINGP ERFORMED BY: CB [facility] Oqqlgj7020 [address] Roadblin [place] [id number] Calcium mass conc 9.4 mg/dL Normal 8.6-10.[address] [facility] Internal Medicine Work Phone: Comment on above: PATIENT WAS FASTINGP ERFORMED BY: ALEX [facility] Okbsdj1264 [address] [facility] [place] [id number] Chloride molar conc 104 mmol/L Normal 97-108 Compr [facility] Internal Medicine Work Phone: Comment on above: PATIENT WAS FASTINGP ERFORMED BY: [facility] Tuoeqv9409 [address] [facility] [place] [id number] CO2 molar conc 22 mmol/L Normal 19-28 Comprehens shanta Internal Medicine Work Phone: Comment on above: PATIENT WAS FASTINGP ERFORMED BY: [facility] Cschgd0891 [facility] [place] [id number] Creatinine mass conc 0.95 mg/dL Normal 0.57-1.00 Comp [facility] Internal Medicine Work Phone: Comment on above: PATIENT WAS FASTINGP ERFORMED BY: CB [facility] Mfcmhr9769 [address] RoadCritical Access Hospitalin [place] [id number] GFR/1.73 sq M predicted among blacks CKD-EPI vol rate/area (S/P/Bld) 72 mL/min/1.73 Normal Comprehensiv e Internal Medicine Work Phone: Comment on above: PATIENT WAS FASTINGP ERFORMED BY: CB [facility] Stscwo6766 [address]ila RoadDublin [place] [id number] GFR/1.73 sq M predicted among non-blacks CKD-EPI vol rate/area (S/P/Bld) 62 mL/min/1.73 Normal [facility] Work Phone: Comment on above: PATIENT WAS FASTINGP ERFORMED BY: ALEX LabTravis ManleySxsaut1065 [facility] [id number] Globulin Calculated mass conc (S) 2.7 g/dL Normal 1.5-4.5 [facility] Work Phone: Globulin mass conc (S) 2.7 g/dL Normal 1.5-4.5 [facility] Work Phone: Comment on above: PATIENT WAS FASTINGP ERFORMED BY: ALEX LabTravis Villegas6370 [facility] [id number] Glucose mass conc 97 mg/dL Normal 65-99 Compreh ensive Internal Medicine Work Phone: Comment on above: PATIENT WAS FASTINGP ERFORMED BY: ALEX Manleylin6370 [facility] [id number] Potassium molar conc 4.5 mmol/L Normal 3.5-5.2 Comp rehensive Internal Medicine Work Phone: Comment on above: PATIENT WAS FASTINGP ERFORMED BY: ALEX Manleylin6370 [facility] [id number] Protein mass conc 7.0 g/dL Normal 6.0-8.5 Compreh ensive Internal Medicine Work Phone: Comment on above: PATIENT WAS FASTINGP ERFORMED BY: ALEX LabTravis ManleyKwbhws0399 [facility] [id number] Sodium molar conc 141 mmol/L Normal 134-144 Compreh ensive Internal Medicine Work Phone: Comment on above: PATIENT WAS FASTINGP ERFORMED BY: ALEX LabTravis ManleyIewrgb8358 [facility] [id number] Urea nitrogen mass conc 19 mg/dL Normal 8-27 [facility] Work Phone: Comment on above: PATIENT WAS FASTINGP ERFORMED BY: ALEX LabTravis ManleyEnmnzx8675 [facility] [id number] Urea nitrogen/Creatinine mass ratio 20 mg/mg Normal 11-26 [facility] Work Phone: Comment on above: PATIENT WAS FASTINGP ERFORMED BY: ALEX LabTravis ManleyWojxoz8765 [facility] [id number] MICROALBUMINOrdered By: Syst em Senior Game Developer on 04-15-2013 Albumin DL <= 20 mg/L mass conc (U) 5.9 ug/mL Normal 0.0-17.0 [facility] Work Phone: Comment on above: PATIENT WAS FASTINGP ERFORMED BY: ALEX [facility] Zlxkny0587 [facility] [id number] Albumin/Creatinine mass ratio (U) 7.0 {mg/g_creat} Normal 0.0-30.0 [facility] Work Phone: Comment on above: PATIENT WAS FASTINGP ERFORMED BY: ALEX Lopez Upmhaj6579 [facility] [id number] Creatinine mass conc (U) 83.8 mg/dL Normal 15.0-278.0 [facility] Work Phone: Comment on above: PATIENT WAS FASTINGP ERFORMED BY: ALEX Manleylin6370 [facility] [id number] Microscopic ExaminationOrder ed By: Coil Maker on 04-15-2013 Bacteria LM.HPF #/area (Urine sed) None seen Normal [facility] Work Phone: Comment on above: PATIENT WAS FASTINGP ERFORMED BY: ALEX LabCruz Aljnly3445 [facility] [id number] Epithelial cells LM.HPF #/area (Urine sed) 0-10 Normal 0 - 10 [facility] Work Phone: Comment on above: PATIENT WAS FASTINGP ERFORMED BY: ALEX [facility]Sc[facility] Pobofs9945 [facility] [id number] Mucus LM Ql (Urine sed) Present Normal [facility] Work Phone: Mucus Ql (Urine sed) Present Normal Comp rehensive Internal Medicine Work Phone: Comment on above: PATIENT WAS FASTINGP ERFORMED BY: ALEX LabCo Xmqrzt0431 [address] RoadDublin [place] [id number] RBC LM.HPF #/area (Urine sed) 4-10 Abnormal 0 - 3 [facility] Work Phone: Comment on above: PATIENT WAS FASTINGP ERFORMED BY: [facility] Lknvga7605 [address] RoadDublin [place] [id number] WBC LM.HPF #/area (Urine sed) 0-5 Normal 0 - 5 [facility] Work Phone: Comment on above: PATIENT WAS FASTINGP ERFORMED BY: LabCo Wljjik0731 [address] [facility] LivoniaD[facility] [place] [id number] URINALYSIS, W/ MICRO ([id number]) Ordered By: Coil Maker on 04-15-2013 Appearance Nom (U) Clear Normal Compre hensive Internal Medicine Work Phone: Comment on above: PATIENT WAS FASTINGP ERFORMED BY: [facility] Itnkbc0307 [address] RoadDublin [place] [id number] Bilirubin Ql (U) Negative Normal Comprehe nsive Internal Medicine Work Phone: Comment on above: PATIENT WAS FASTINGP ERFORMED BY: LabCo Iyucpe8062 [address] RoadDublin [place] [id number] Bilirubin Ql (U) Negative Normal Comprehe nsive Internal Medicine; [facility] Work Phone: Color Nom (U) Yellow Normal Comprehensi ve Internal Medicine Work Phone: Comment on above: PATIENT WAS FASTINGP ERFORMED BY: LabCo Hiecgu2537 [address] RoadDublin [place] [id number] Glucose Ql (U) Negative Normal Comprehens shanta Internal Medicine Work Phone: Comment on above: PATIENT WAS FASTINGP ERFORMED BY: [facility] Ygayxv1026 [address] RoadDublin [place] [id number] Glucose Ql (U) Negative Normal Comprehens shanta Internal Medicine; [facility] Work Phone: Hemoglobin Ql (U) 2+ Abnormal Compreh ensive Internal Medicine Work Phone: Comment on above: PATIENT WAS FASTINGP ERFORMED BY: ALEX LabCodaniella ManleyFruqjp4218 [address] RoadDublin [place] [id number] Hemoglobin Test strip Ql (U) 2+ Abnormal [facility] Work Phone: Ketones Ql (U) Negative Normal Comprehens shanta Internal Medicine Work Phone: Comment on above: PATIENT WAS FASTINGP ERFORMED BY: ALEX LabTxdaniella ManleyLfkgxb3367 [address] RoadDublin [place] [id number] Ketones Ql (U) Negative Normal Comprehens shanta Internal Medicine; [facility] Work Phone: Leukocyte esterase Test strip Ql (U) 1+ Abnormal [facility] Work Phone: Comment on above: PATIENT WAS FASTINGP ERFORMED BY: ALEX Manleylin6370 [address] [place] [id number] Microscopic observation LM Nom (Urine sed) See below: Normal [facility] Work Phone: Comment on above: PATIENT WAS FASTINGP ERFORMED BY: ALEX CansecoTxdaniella ManleyQngika1288 [address] RoadCritical Access Hospitalin [place] [id number] Nitrite Ql (U) Negative Normal Comprehens shanta Internal Medicine Work Phone: Comment on above: PATIENT WAS FASTINGP ERFORMED BY: ALEX Manleylin6370 [address] RoadCritical Access Hospitalin [place] [id number] Nitrite Ql (U) Negative Normal Comprehens shanta Internal Medicine; [facility] Work Phone: Nitrite Test strip Ql (U) Negative Normal [facility] Work Phone: pH (U) 6.0 [pH] Normal 5.0-7.5 [facility] Work Phone: Comment on above: PATIENT WAS FASTINGP ERFORMED BY: ALEX [facility]Sc[facility] Oihanv5587 [address] RoadCritical Access Hospitalin [place] [id number] pH Test strip (U) 6.0 [pH] Normal 5.0-7.5 Compreh ensive Internal Medicine Work Phone: Protein Ql (U) Negative Normal Comprehens shanta Internal Medicine Work Phone: Comment on above: PATIENT WAS FASTINGP ERFORMED BY: [employer] Cihjsn1676 [address] [facility]versNovant [facility] [id number] Protein Ql (U) Negative Normal Comprehens shanta Internal Medicine; [facility] Work Phone: Protein Test strip Ql (U) Negative Normal [facility] Work Phone: Specific gravity Relative Density (U) 1.012 1 Normal 1.005-1.03 0 [facility] Work Phone: Comment on above: PATIENT WAS FASTINGP ERFORMED BY: Tact[employer] TechnologiesSaint Clare's Hospital at SussexSrvbem0546 [address] [facility] MoversNovant [facility] Ball[facility] [id number] Urobilinogen (U) [Mass/Vol] 0.2 mg/dL Normal 0.0-1.9 [facility]; [facility] Work Phone: Urobilinogen Test strip mass conc (U) 0.2 mg/dL Normal 0.0-1.9 Comprehensiv e Internal Medicine Work Phone: Comment on above: PATIENT WAS FASTINGP ERFORMED BY: Tactonic TechnologiesSaint Clare's Hospital at SussexXydcku0165 [facility] [id number] CBC WITH MANUAL DIFF ([id number]) Ordered By: Coil Maker on 10-02-2012 Basophils #/vol (Bld) 0.0 {x10E3/uL} Normal 0.0-0.2 [facility] Work Phone: Comment on above: PATIENT WAS FASTINGP ERFORMED BY: [employer] Scolpq4021 [facility] [id number] Information: ADD [id number] AND DRAW FEE 99 2660 Basophils (Bld) [#/Vol] 0.0 10*3/uL Normal 0.0-0.2 [facility]; [facility] Work Phone: Basophils Auto #/vol (Bld) 0.0 {x10E3/uL} Normal 0.0-0.2 [facility] Work Phone: Basophils/100 WBC (Bld) 1 % Normal 0-3 [facility] Work Phone: Comment on above: PATIENT WAS FASTINGP ERFORMED BY: [facility]6370 [facility] [id number] Information: ADD [id number] AND DRAW FEE 99 6660 Basophils/100 WBC Auto (Bld) 1 % Normal 0-3 [facility] Work Phone: Eosinophils #/vol (Bld) 0.2 {x10E3/uL} Normal 0.0-0.4 [facility] Work Phone: Comment on above: PATIENT WAS FASTINGP ERFORMED BY: [place] 2876870 [facility] [id number] Information: ADD [id number] AND DRAW FEE 99 6660 Eosinophils (Bld) [#/Vol] 0.2 10*3/uL Normal 0.0-0.4 [facility]; [facility] Work Phone: Eosinophils Auto #/vol (Bld) 0.2 {x10E3/uL} Normal 0.0-0.4 [facility] Work Phone: Eosinophils/100 WBC (Bld) 5 % Normal 0-7 [facility] Work Phone: Comment on above: PATIENT WAS FASTINGP ERFORMED BY: [address] [id number] Information: ADD [id number] AND DRAW FEE 99 6660 Eosinophils/100 WBC Auto (Bld) 5 % Normal 0-7 [facility] Work Phone: Erythrocyte distribution width Auto Ratio (RBC) 13.8 % Normal 12.3-15.4 [facility] Work Phone: Erythrocyte distribution width Ratio (RBC) 13.8 % Normal 12.3-15.4 [facility] Work Phone: Comment on above: PATIENT WAS FASTINGP ERFORMED BY: [address] [id number] Information: ADD [id number] AND DRAW FEE 99 6660 Hematocrit Auto Volume Fraction (Bld) 36.3 % Normal 34.0-46.6 Comprehens shanta Internal Medicine Work Phone: Hematocrit Volume Fraction (Bld) 36.3 % Normal 34.0-46.6 [facility] Work Phone: Comment on above: PATIENT WAS FASTINGP ERFORMED BY: ALEX [facility]ithUp [facility] System6370 [facility] [id number] Information: ADD [id number] AND DRAW FEE 99 6660 Hemoglobin mass conc (Bld) 11.9 g/dL Normal 11.1-15.9 [facility] Work Phone: Comment on above: PATIENT WAS FASTINGP ERFORMED BY: ALEX [address] [id number] Information: ADD [id number] AND DRAW FEE 99 6660 Immature granulocytes #/vol (Bld) 0.0 {x10E3/uL} Normal 0.0-0.1 [facility] Work Phone: Comment on above: PATIENT WAS FASTINGP ERFORMED BY: ALEX [facility] Eriedaniella ManleyCtuzre5196 [facility] [id number] Information: ADD [id number] AND DRAW FEE 99 6660 Immature granulocytes (Bld) [#/Vol] 0.0 10*3/uL Normal 0.0-0.1 [facility]; [facility] Work Phone: Immature granulocytes/100 WBC (Bld) 0 % Normal 0-2 [facility] Work Phone: Comment on above: PATIENT WAS FASTINGP ERFORMED BY: ALEX [facility] Pyduos3506 [facility] [id number] Information: ADD [id number] AND DRAW FEE 99 6660 Lymphocytes #/vol (Bld) 1.7 {x10E3/uL} Normal 0.7-4.5 [facility] Work Phone: Comment on above: PATIENT WAS FASTINGP ERFORMED BY: ALEX [place] 4996970 [facility] [id number] Information: ADD [id number] AND DRAW FEE 99 6660 Lymphocytes (Bld) [#/Vol] 1.7 10*3/uL Normal 0.7-4.5 [facility]; [facility] Work Phone: Lymphocytes Auto #/vol (Bld) 1.7 {x10E3/uL} Normal 0.7-4.5 [facility] Work Phone: Lymphocytes/100 WBC (Bld) 41 % Normal 14-46 [facility] Work Phone: Comment on above: PATIENT WAS FASTINGP ERFORMED BY: ALEX [employer]act[employer] Technologiesdaniella ManleyJssdiq7603 [address] [facility]versNovant [facility] [id number] Information: ADD [id number] AND DRAW FEE 99 6660 Lymphocytes/100 WBC Auto (Bld) 41 % Normal 14-46 [facility] Work Phone: MCH Auto Entitic mass (RBC) 29.2 pg Normal 26.6-33.0 [facility] Work Phone: MCH Entitic mass (RBC) 29.2 pg Normal 26.6-33.0 [facility] Work Phone: Comment on above: PATIENT WAS FASTINGP ERFORMED BY: ALEX Tactonic Technologiesdaniella ManleyWbnwdl2733 [facility] [id number] Information: ADD [id number] AND DRAW FEE 99 6660 MCHC Auto mass conc (RBC) 32.8 g/dL Normal 31.5-35.7 [facility] Work Phone: MCHC mass conc (RBC) 32.8 g/dL Normal 31.5-35.7 Comp [facility] Internal Medicine Work Phone: Comment on above: PATIENT WAS FASTINGP ERFORMED BY: ALEX Tactonic Technologiesdaniella ManleyIreaee7384 [facility] [id number] Information: ADD [id number] AND DRAW FEE 99 6660 MCV Auto Entitic volume (RBC) 89 fL Normal 79-97 [facility] Work Phone: MCV Entitic volume (RBC) 89 fL Normal 79-97 [facility] Work Phone: Comment on above: PATIENT WAS FASTINGP ERFORMED BY: ALEX OpenEd70 [place] [facility] [id number] Information: ADD [id number] AND DRAW FEE 99 6660 Monocytes #/vol (Bld) 0.2 {x10E3/uL} Normal 0.1-1.0 [facility] Work Phone: Comment on above: PATIENT WAS FASTINGP ERFORMED BY: ALEX [facility]6370 [facility] [id number] Information: ADD [id number] AND DRAW FEE 99 6660 Monocytes (Bld) [#/Vol] 0.2 10*3/uL Normal 0.1-1.0 [facility]; [facility] Work Phone: Monocytes Auto #/vol (Bld) 0.2 {x10E3/uL} Normal 0.1-1.0 [facility] Work Phone: Monocytes/100 WBC (Bld) 5 % Normal 4- [facility] Work Phone: Comment on above: PATIENT WAS FASTINGP ERFORMED BY: ALEX [place] 4996970 [facility] [id number] Information: ADD [id number] AND DRAW FEE 99 6660 Monocytes/100 WBC Auto (Bld) 5 % Normal 4-13 [facility] Work Phone: Neutrophils #/vol (Bld) 2.0 {x10E3/uL} Normal 1.8-7.8 [facility] Work Phone: Comment on above: PATIENT WAS FASTINGP ERFORMED BY: ALEX [facility]6370 [facility] [id number] Information: ADD [id number] AND DRAW FEE 99 6660 Neutrophils (Bld) [#/Vol] 2.0 10*3/uL Normal 1.8-7.8 [facility]; [facility] Work Phone: Neutrophils Auto #/vol (Bld) 2.0 {x10E3/uL} Normal 1.8-7.8 [facility] Work Phone: Neutrophils/100 WBC (Bld) 48 % Normal 40-74 [facility] Work Phone: Comment on above: PATIENT WAS FASTINGP ERFORMED BY: ALEX AjithTravis ManleyHvkdmi9381 [facility] [id number] Information: ADD [id number] AND DRAW FEE 99 6660 Neutrophils/100 WBC Auto (Bld) 48 % Normal 40-74 [facility] Work Phone: Platelets #/vol (Bld) 245 {x10E3/uL} Normal 140-415 [facility] Work Phone: Comment on above: PATIENT WAS FASTINGP ERFORMED BY: ALEX Manleylin6370 [facility] [id number] Information: ADD [id number] AND DRAW FEE 99 6660 Platelets (Bld) [#/Vol] 245 10*3/uL Normal 140-415 [facility]; [facility] Internal Medicine Work Phone: Platelets Auto #/vol (Bld) 245 {x10E3/uL} Normal 140-415 [facility] Work Phone: RBC #/vol (Bld) 4.07 {x10E6/uL} Normal 3.77-5.28 [facility] Internal Medicine Work Phone: Comment on above: PATIENT WAS FASTINGP ERFORMED BY: ALEX Manleylin6370 [facility] [id number] Information: ADD [id number] AND DRAW FEE 99 6660 RBC (Bld) [#/Vol] 4.07 10*6/uL Normal 3.77-5.28 [facility] Internal Medicine; [facility] Internal Medicine Work Phone: RBC Auto #/vol (Bld) 4.07 {x10E6/uL} Normal 3.77-5.28 [facility] Internal Medicine Work Phone: WBC #/vol (Bld) 4.2 {x10E3/uL} Normal 4.0-10.5 Compr [facility] Internal Medicine Work Phone: Comment on above: PATIENT WAS FASTINGP ERFORMED BY: ALEX [address]ley[address] [id number] Information: ADD [id number] AND DRAW FEE 99 3954 WBC (Bld) [#/Vol] 4.2 10*3/uL Normal 4.0-10.5 [facility] Internal Medicine; [facility] Internal Medicine Work Phone: WBC Auto #/vol (Bld) 4.2 {x10E3/uL} Normal 4.0-10.5 [facility] Work Phone: METABOLIC PANEL, COMPREHENSI VE ([id number])Ordered By: Coil Maker on 10-02-2012 Albumin mass conc 4.4 g/dL Normal 3.6-4.8 Compreh [facility] Internal Medicine Work Phone: Comment on above: PATIENT WAS FASTINGP ERFORMED BY: ALEX LabCo Peltqi7701 [address] [facility]versNov[facility] [id number] Albumin/Globulin mass ratio 1.7 {ratio} Normal 1.1-2.5 [facility] Internal Medicine Work Phone: Comment on above: PATIENT WAS FASTINGP ERFORMED BY: ALEX [facility] Xlfngr0092 [facility] [id number] ALP [Catalytic activity/Vol] 77 U/L Normal 25-165 [facility] Internal Medicine; [facility] Internal Medicine Work Phone: ALP enzyme act/vol 77 [iU]/L Normal 25-165 [facility] Internal Medicine Work Phone: Comment on above: PATIENT WAS FASTINGP ERFORMED BY: ALEX LabPacejet Logisticsrp Hsgcnx6254 [facility] [id number] ALT [Catalytic activity/Vol] 28 U/L Normal 0-32 [facility]; [facility] Internal Medicine Work Phone: ALT enzyme act/vol 28 [iU]/L Normal 0-32 [facility] Internal Medicine Work Phone: Comment on above: PATIENT WAS FASTINGP ERFORMED BY: [facility] Akvgms7959 [address] [facility] [id number] AST [Catalytic activity/Vol] 25 U/L Normal 0-40 [facility]; [facility] Internal Medicine Work Phone: AST enzyme act/vol 25 [iU]/L Normal 0-40 Compre [facility] Work Phone: Comment on above: PATIENT WAS FASTINGP ERFORMED BY: ALEX Villegas6370 [address] [facility] [id number] Bilirubin mass conc 0.4 mg/dL Normal 0.0-1.2 Compr ehensive Internal Medicine Work Phone: Comment on above: PATIENT WAS FASTINGP ERFORMED BY: ALEX Villegas6370 [facility] [id number] Calcium mass conc 9.4 mg/dL Normal 8.6-10.2 Compreh ensive Internal Medicine Work Phone: Comment on above: PATIENT WAS FASTINGP ERFORMED BY: ALEX Manleylin6370 [facility] [id number] Chloride molar conc 107 mmol/L Normal 97-108 Compr [facility] Internal Medicine Work Phone: Comment on above: PATIENT WAS FASTINGP ERFORMED BY: ALEX Manleylin6370 [facility] [id number] CO2 molar conc 23 mmol/L Normal 20-32 Comprehens shanta Internal Medicine Work Phone: Comment on above: PATIENT WAS FASTINGP ERFORMED BY: ALEX Manleylin6370 [facility] [id number] Creatinine mass conc 0.98 mg/dL Normal 0.57-1.00 Comp [facility] Work Phone: Comment on above: PATIENT WAS FASTINGP ERFORMED BY: ALEX LabTravis ManleyOvtrbf8838 [facility] [id number] GFR/1.73 sq M predicted among blacks CKD-EPI vol rate/area (S/P/Bld) 69 mL/min/1.73 Normal Comprehensiv e Internal Medicine Work Phone: Comment on above: PATIENT WAS FASTINGP ERFORMED BY: ALEX [facility] Bmlnai7297 [facility] [id number] GFR/1.73 sq M predicted among non-blacks CKD-EPI vol rate/area (S/P/Bld) 60 mL/min/1.73 Normal [facility] Work Phone: Comment on above: PATIENT WAS FASTINGP ERFORMED BY: ALEX [facility] Jjsxqp3574 [address] [facility] [id number] Globulin Calculated mass conc (S) 2.6 g/dL Normal 1.5-4.5 [facility] Work Phone: Globulin mass conc (S) 2.6 g/dL Normal 1.5-4.5 [facility] Medicine Work Phone: Comment on above: PATIENT WAS FASTINGP ERFORMED BY: ALEX [facility] Mqxgpi8964 [facility] [id number] Glucose mass conc 90 mg/dL Normal 65-99 Compreh ensive Internal Medicine Work Phone: Comment on above: PATIENT WAS FASTINGP ERFORMED BY: ALEX [facility] Hvbpjr9688 [facility] [id number] Potassium molar conc 4.3 mmol/L Normal 3.5-5.2 Comp rehensive Internal Medicine Work Phone: Comment on above: PATIENT WAS FASTINGP ERFORMED BY: ALEX LabCodaniella Wtypkr9434 [facility] [id number] Protein mass conc 7.0 g/dL Normal 6.0-8.5 Compreh ensive Internal Medicine Work Phone: Comment on above: PATIENT WAS FASTINGP ERFORMED BY: ALEX [facility] Rasifi0839 [facility] [id number] Sodium molar conc 144 mmol/L Normal 134-144 Compreh ensive Internal Medicine Work Phone: Comment on above: PATIENT WAS FASTINGP ERFORMED BY: ALEX [facility] Mdlcrp0802 [facility] [place] [id number] Urea nitrogen mass conc 22 mg/dL Normal 8-27 [facility] Work Phone: Comment on above: PATIENT WAS FASTINGP ERFORMED BY: ALEX [facility] Dazjmd3294 [facility] [id number] Urea nitrogen/Creatinine mass ratio 22 mg/mg Normal 11-26 [facility] Work Phone: Comment on above: PATIENT WAS FASTINGP ERFORMED BY: [employer]rp Vpuwut5631 [facility]UNC [facility] [id number] URINE JASON CULTURE-ANGELINA COL C OUNT ([id number])Ordered By: Coil Maker on 03-11-2012 Bacteria identified Cx Nom (U) NG36 Normal [facility] Work Phone: Comment on above: No growth in 36 - 48 hours. PATIENT NOT FASTINGP ERFORMED BY: Tidal [facility] Rjqdjl0726 [facility]omUNC [facility] [id number] Information: SRC:UR [id number] Bacteria identified Cx Nom (U) Final report Normal [facility] Work Phone: Comment on above: PATIENT NOT FASTINGP ERFORMED BY: [employer]rp Arzrrh0580 [facility]igaomUNC [facility] [id number] Information: SRC:UR [id number] Urinalysis, Office ([id number])Or dered By: Chloe Kelsey on 03-11-2012 Bilirubin [...] [facility] Work Phone: Urinalysis, Office ([id number])Or dered By: Melita Cisse on 02-07-2012 Bilirubin [...] Medicine Work Phone: CBC WITH MANUAL DIFF (22995) Ordered By: Coil Maker on 01-17-2012 Basophils #/vol (Bld) 0.0 {x10E3/uL} Normal 0.0-0.2 [facility] Work Phone: Comment on above: PATIENT WAS FASTINGP ERFORMED BY: [employer]70 [facility]versNov[facility] [id number] Information: [id number] Basophils (Bld) [#/Vol] 0.0 10*3/uL Normal 0.0-0.2 [facility]; [facility] Work Phone: Basophils Auto #/vol (Bld) 0.0 {x10E3/uL} Normal 0.0-0.2 [facility] Work Phone: Basophils/100 WBC (Bld) 1 % Normal 0-3 [facility] Work Phone: Comment on above: PATIENT WAS FASTINGP ERFORMED BY: [employer]70 [facility]versNov[facility] [id number] Information: [id number] Basophils/100 WBC Auto (Bld) 1 % Normal 0-3 [facility] Work Phone: Eosinophils #/vol (Bld) 0.1 {x10E3/uL} Normal 0.0-0.4 [facility] Work Phone: Comment on above: PATIENT WAS FASTINGP ERFORMED BY: Tactonic TechnologiesSaint Clare's Hospital at SussexFmdegk2278 [facility] [id number] Information: [id number] Eosinophils (Bld) [#/Vol] 0.1 10*3/uL Normal 0.0-0.4 [facility]; [facility] Work Phone: Eosinophils Auto #/vol (Bld) 0.1 {x10E3/uL} Normal 0.0-0.4 [facility] Work Phone: Eosinophils/100 WBC (Bld) 1 % Normal 0-7 [facility] Work Phone: Comment on above: PATIENT WAS FASTINGP ERFORMED BY: Tactonic TechnologiesSaint Clare's Hospital at SussexKpdzwv2932 [facility] [id number] Information: [id number] Eosinophils/100 WBC Auto (Bld) 1 % Normal 0-7 [facility] Work Phone: Erythrocyte distribution width Auto Ratio (RBC) 14.0 % Normal 12.3-15.4 [facility] Work Phone: Erythrocyte distribution width Ratio (RBC) 14.0 % Normal 12.3-15.4 [facility] Work Phone: Comment on above: PATIENT WAS FASTINGP ERFORMED BY: Tactonic TechnologiesSaint Clare's Hospital at SussexTrzqll7497 [facility] [id number] Information: [id number] Hematocrit Auto Volume Fraction (Bld) 34.8 % Normal 34.0-46.6 Comprehens [facility] Internal Medicine Work Phone: Hematocrit Volume Fraction (Bld) 34.8 % Normal 34.0-46.6 [facility] Work Phone: Comment on above: PATIENT WAS FASTINGP ERFORMED BY: [facility]6370 [facility] [id number] Information: [id number] Hemoglobin mass conc (Bld) 11.4 g/dL Normal 11.1-15.9 [facility] Work Phone: Comment on above: PATIENT WAS FASTINGP ERFORMED BY: [address] [id number] Information: [id number] Immature granulocytes #/vol (Bld) 0.0 {x10E3/uL} Normal 0.0-0.1 [facility] Work Phone: Comment on above: PATIENT WAS FASTINGP ERFORMED BY: [address] [id number] Information: [id number] Immature granulocytes (Bld) [#/Vol] 0.0 10*3/uL Normal 0.0-0.1 [facility]; [facility] Work Phone: Immature granulocytes/100 WBC (Bld) 0 % Normal 0-2 [facility] Work Phone: Comment on above: PATIENT WAS FASTINGP ERFORMED BY: [place] 2876870 [facility] [id number] Information: [id number] Lymphocytes #/vol (Bld) 2.1 {x10E3/uL} Normal 0.7-4.5 [facility] Work Phone: Comment on above: PATIENT WAS FASTINGP ERFORMED BY: [place] 2876870 [facility] [id number] Information: [id number] Lymphocytes (Bld) [#/Vol] 2.1 10*3/uL Normal 0.7-4.5 [facility]; [facility] Work Phone: Lymphocytes Auto #/vol (Bld) 2.1 {x10E3/uL} Normal 0.7-4.5 [facility] Work Phone: Lymphocytes/100 WBC (Bld) 44 % Normal 14-46 [facility] Work Phone: Comment on above: PATIENT WAS FASTINGP ERFORMED BY: ALEX [address] [id number] Information: [id number] Lymphocytes/100 WBC Auto (Bld) 44 % Normal 14-46 [facility] Work Phone: MCH Auto Entitic mass (RBC) 29.1 pg Normal 26.6-33.0 [facility] Work Phone: MCH Entitic mass (RBC) 29.1 pg Normal 26.6-33.0 [facility] Work Phone: Comment on above: PATIENT WAS FASTINGP ERFORMED BY: ALEX [address] [id number] Information: [id number] MCHC Auto mass conc (RBC) 32.8 g/dL Normal 31.5-35.7 [facility] Work Phone: MCHC mass conc (RBC) 32.8 g/dL Normal 31.5-35.7 Comp [facility] Internal Medicine Work Phone: Comment on above: PATIENT WAS FASTINGP ERFORMED BY: ALEX [address] [id number] Information: [id number] MCV Auto Entitic volume (RBC) 89 fL Normal 79-97 [facility] Work Phone: MCV Entitic volume (RBC) 89 fL Normal 79-97 [facility] Work Phone: Comment on above: PATIENT WAS FASTINGP ERFORMED BY: ALEX [address] [id number] Information: [id number] Monocytes #/vol (Bld) 0.2 {x10E3/uL} Normal 0.1-1.0 [facility] Work Phone: Comment on above: PATIENT WAS FASTINGP ERFORMED BY: [facility]6370 [facility] [id number] Information: [id number] Monocytes (Bld) [#/Vol] 0.2 10*3/uL Normal 0.1-1.0 [facility]; [facility] Work Phone: Monocytes Auto #/vol (Bld) 0.2 {x10E3/uL} Normal 0.1-1.0 [facility] Work Phone: Monocytes/100 WBC (Bld) 5 % Normal 10-25 [facility] Work Phone: Comment on above: PATIENT WAS FASTINGP ERFORMED BY: ALEX [place] 4996970 [facility] [id number] Information: [id number] Monocytes/100 WBC Auto (Bld) 5 % Normal - [facility] Work Phone: Neutrophils #/vol (Bld) 2.4 {x10E3/uL} Normal 1.8-7.8 [facility] Work Phone: Comment on above: PATIENT WAS FASTINGP ERFORMED BY: ALEX [place] 4996970 [facility] [id number] Information: [id number] Neutrophils (Bld) [#/Vol] 2.4 10*3/uL Normal 1.8-7.8 [facility]; [facility] Work Phone: Neutrophils Auto #/vol (Bld) 2.4 {x10E3/uL} Normal 1.8-7.8 [facility] Work Phone: Neutrophils/100 WBC (Bld) 49 % Normal 40-74 [facility] Work Phone: Comment on above: PATIENT WAS FASTINGP ERFORMED BY: [facility]6370 [facility] [id number] Information: [id number] Neutrophils/100 WBC Auto (Bld) 49 % Normal 40-74 [facility] Work Phone: Platelets #/vol (Bld) 214 {x10E3/uL} Normal 140-415 [facility] Work Phone: Comment on above: PATIENT WAS FASTINGP ERFORMED BY: ALEX [facility]6370 [facility] [id number] Information: [id number] Platelets (Bld) [#/Vol] 214 10*3/uL Normal 140-415 [facility]; [facility] Work Phone: Platelets Auto #/vol (Bld) 214 {x10E3/uL} Normal 140-415 [facility] Work Phone: RBC #/vol (Bld) 3.92 {x10E6/uL} Normal 3.77-5.28 Comp [facility] Internal Medicine Work Phone: Comment on above: PATIENT WAS FASTINGP ERFORMED BY: [facility]6370 [facility] [id number] Information: [id number] RBC (Bld) [#/Vol] 3.92 10*6/uL Normal 3.77-5.28 Compr ensive Internal Medicine; [facility] Work Phone: RBC Auto #/vol (Bld) 3.92 {x10E6/uL} Normal 3.77-5.28 [facility] Work Phone: WBC #/vol (Bld) 4.9 {x10E3/uL} Normal 4.0-10.5 Compr ensive Internal Medicine Work Phone: Comment on above: PATIENT WAS FASTINGP ERFORMED BY: [facility]6370 [facility] [id number] Information: [id number] WBC (Bld) [#/Vol] 4.9 10*3/uL Normal 4.0-10.5 [facility]; [facility] Work Phone: WBC Auto #/vol (Bld) 4.9 {x10E3/uL} Normal 4.0-10.5 [facility] Work Phone: CHEST, PA AND LATERALOrdered By: Coil Maker on 01-17-2012 CHEST, PA AND LATERAL See Note Normal Com prehensive Internal Medicine Work Phone: Comment on above: PROCEDURE: X-RAY PATSY ST REASON FOR EXAM: Female, 66 years old. [...] Sheppard M.D.January 17, 2012 at 12:26:03 PM [phone] Signed GP/GP If you are the referring physician and would like to consult with theradiologist who provided this interpretation, please contact Florentin Flowers at [phone]. If this radiologist is unavailable, youwill be directed to another radiologist to assist. If you are a patient with a question regarding this report, pleasecontactyour referring physician directly. Professional Interpretation Provided By: [employer], Phone , Dictated on 01/17/12911 by Tao Sheppard MDribed on 01/17/122149 by ITS IMPORTSign by Emory Sheppard MD on 01/17/122150 Sign by: Emory Sheppard MD LIPID PANEL ([id number])Ordered B y: Coil Maker on 01-17-2012 Cholesterol in HDL mass conc 96 mg/dL Normal [facility] Work Phone: Comment on above: According to ATP-III Guidelines, HDL-C >59 mg/dL is considered anegative risk factor for CHD. PATIENT WAS FASTINGP ERFORMED BY: ALEX LabCodaniella Smfcqc5291 [facility] [place] [id number] Cholesterol in LDL mass conc 92 mg/dL Normal 0-99 [facility] Work Phone: Comment on above: PATIENT WAS FASTINGP ERFORMED BY: ALEX LabCodaniella ManleyUjierv4313 [facility]Critical Access Hospitalin [place] [id number] Cholesterol in LDL/Cholesterol in HDL mass ratio 1.0 {ratio_units} Normal 0.0-3.2 [facility] Work Phone: Comment on above: PATIENT WAS FASTINGP ERFORMED BY: ALEX LabCodaniella Ftoktr4008 [address] RoadDuin [place] [id number] Cholesterol in VLDL mass conc 11 mg/dL Normal 5-40 [facility] Work Phone: Comment on above: PATIENT WAS FASTINGP ERFORMED BY: ALEX LabTravis ManleyJyklyd5531 [facility] [id number] Cholesterol mass conc 199 mg/dL Normal 100-199 [facility] Internal Medicine Work Phone: Comment on above: PATIENT WAS FASTINGP ERFORMED BY: ALEX LabTravis ManleyCrzrmk7450 [facility] [id number] Triglyceride mass conc 55 mg/dL Normal 0-149 [facility] Work Phone: Comment on above: PATIENT WAS FASTINGP ERFORMED BY: ALEX LabTravis ManleyGdeggi0782 [facility] [id number] METABOLIC PANEL, COMPREHENSI VE ([id number])Ordered By: Coil Maker on 01-17-2012 Albumin mass conc 4.3 g/dL Normal 3.6-4.8 Compreh ensive Internal Medicine Work Phone: Comment on above: PATIENT WAS FASTINGP ERFORMED BY: ALEX [facility] Lilllf3180 [facility] [place] [id number] Albumin/Globulin mass ratio 1.7 {ratio} Normal 1.1-2.5 [facility] Work Phone: Comment on above: PATIENT WAS FASTINGP ERFORMED BY: ALEX [facility] Jcnwja2228 [facility] [id number] ALP [Catalytic activity/Vol] 74 U/L Normal 25-165 [facility]; [facility] Internal Medicine Work Phone: ALP enzyme act/vol 74 [iU]/L Normal 25-165 [facility] Internal Medicine Work Phone: Comment on above: PATIENT WAS FASTINGP ERFORMED BY: ALEX Villegas6370 [facility] [id number] ALT [Catalytic activity/Vol] 12 U/L Normal 0-40 [facility]; [facility] Internal Medicine Work Phone: ALT enzyme act/vol 12 [iU]/L Normal 0-40 [facility] Internal Medicine Work Phone: Comment on above: PATIENT WAS FASTINGP ERFORMED BY: ALEX Manleylin6370 [facility] [id number] AST [Catalytic activity/Vol] 19 U/L Normal 0-40 [facility] Internal Medicine; [facility] Internal Medicine Work Phone: AST enzyme act/vol 19 [iU]/L Normal 0-40 [facility] Internal Medicine Work Phone: Comment on above: PATIENT WAS FASTINGP ERFORMED BY: ALEX Villegas6370 [facility] [id number] Bilirubin mass conc 0.3 mg/dL Normal 0.0-1.2 [facility] Internal Medicine Work Phone: Comment on above: PATIENT WAS FASTINGP ERFORMED BY: ALEX Villegas6370 [facility] [id number] Calcium mass conc 9.4 mg/dL Normal 8.6-10.2 [facility] Internal Medicine Work Phone: Comment on above: PATIENT WAS FASTINGP ERFORMED BY: ALEX Manleylin6370 [facility] [id number] Chloride molar conc 106 mmol/L Normal 97-108 [facility] Internal Medicine Work Phone: Comment on above: PATIENT WAS FASTINGP ERFORMED BY: ALEX Manleylin6370 [facility] [id number] CO2 molar conc 24 mmol/L Normal 20-32 Comprehens shanta Internal Medicine Work Phone: Comment on above: PATIENT WAS FASTINGP ERFORMED BY: ALEX LabTravis ManleyGvwtfm0759 [facility] [id number] Creatinine mass conc 0.97 mg/dL Normal 0.57-1.00 Comp rehensive Internal Medicine Work Phone: Comment on above: PATIENT WAS FASTINGP ERFORMED BY: ALEX LabCodaniella ManleyLmalob5896 [facility] [id number] GFR/1.73 sq M predicted among blacks CKD-EPI vol rate/area (S/P/Bld) 70 mL/min/1.73 Normal Comprehensiv e Internal Medicine Work Phone: Comment on above: PATIENT WAS FASTINGP ERFORMED BY: ALEX Manleylin6370 [facility] [id number] GFR/1.73 sq M predicted among non-blacks CKD-EPI vol rate/area (S/P/Bld) 61 mL/min/1.73 Normal [facility] Work Phone: Comment on above: PATIENT WAS FASTINGP ERFORMED BY: ALEX Villegas6370 [facility] [id number] Globulin Calculated mass conc (S) 2.6 g/dL Normal 1.5-4.5 [facility] Work Phone: Globulin mass conc (S) 2.6 g/dL Normal 1.5-4.5 [facility] Work Phone: Comment on above: PATIENT WAS FASTINGP ERFORMED BY: ALEX LabCo Ivepjj3296 [facility] [id number] Glucose mass conc 89 mg/dL Normal 65-99 Compreh ensive Internal Medicine Work Phone: Comment on above: PATIENT WAS FASTINGP ERFORMED BY: ALEX LabCodaniella Svsavc1546 [facility] [id number] Potassium molar conc 4.4 mmol/L Normal 3.5-5.2 Comp rehensive Internal Medicine Work Phone: Comment on above: PATIENT WAS FASTINGP ERFORMED BY: ALEX LabTravis ManleyLplvqa2728 [facility] [id number] Protein mass conc 6.9 g/dL Normal 6.0-8.5 Compreh ensive Internal Medicine Work Phone: Comment on above: PATIENT WAS FASTINGP ERFORMED BY: ALEX Manleylin6370 [facility] [id number] Sodium molar conc 142 mmol/L Normal 134-144 Compreh ensive Internal Medicine Work Phone: Comment on above: PATIENT WAS FASTINGP ERFORMED BY: ALEX LabTravis ManleyCaechw0692 [facility] [id number] Urea nitrogen mass conc 28 mg/dL Abnormal 8-27 [facility] Work Phone: Comment on above: PATIENT WAS FASTINGP ERFORMED BY: ALEX Manleylin6370 [facility] [id number] Urea nitrogen/Creatinine mass ratio 29 mg/mg Abnormal 11- [facility] Work Phone: Comment on above: PATIENT WAS FASTINGP ERFORMED BY: ALEX Manleylin6370 [facility] [id number] Microscopic ExaminationOrder ed By: Coil Maker on 01-17-2012 Bacteria LM.HPF #/area (Urine sed) Few Normal [facility] Work Phone: Comment on above: PATIENT WAS FASTINGP ERFORMED BY: ALEX Lopez Xpacpo0655 [facility] [id number] Epithelial cells LM.HPF #/area (Urine sed) 0-10 Normal 0 - 10 [facility] Work Phone: Comment on above: PATIENT WAS FASTINGP ERFORMED BY: LAEX LabTravis ManleyBkpgra8608 [facility] [id number] Mucus LM Ql (Urine sed) Present Normal [facility] Work Phone: Mucus Ql (Urine sed) Present Normal Comp rehensive Internal Medicine Work Phone: Comment on above: PATIENT WAS FASTINGP ERFORMED BY: ALEX LabCo Sgbhsb3245 [address] RoadDublin [place] [id number] RBC LM.HPF #/area (Urine sed) 0-3 Normal 0 - 3 [facility] Work Phone: Comment on above: PATIENT WAS FASTINGP ERFORMED BY: ALEX [facility] Gdlrmh3649 [facility] [facility] [place] [id number] WBC LM.HPF #/area (Urine sed) 6-10 Abnormal 0 - 5 [facility] Work Phone: Comment on above: PATIENT WAS FASTINGP ERFORMED BY: ALEX LabCo Bctlgx3175 [facility] [place] [id number] URINALYSIS, W/ MICRO ([id number]) Ordered By: Coil Maker on 01-17-2012 Appearance Nom (U) Clear Normal Compre hensive Internal Medicine Work Phone: Comment on above: PATIENT WAS FASTINGP ERFORMED BY: ALEX LabScotland [facility] Hospital Bmqnfo4216 [facility] RoadCritical Access Hospitalin [place] [id number] Bilirubin Ql (U) Negative Normal Comprehe nsive Internal Medicine Work Phone: Comment on above: PATIENT WAS FASTINGP ERFORMED BY: ALEX [facility] Wjbbac0614 [address] RoadDuin [place] [id number] Bilirubin Ql (U) Negative Normal Comprehe nsive Internal Medicine; [facility] Work Phone: Color Nom (U) Yellow Normal Comprehensi ve Internal Medicine Work Phone: Comment on above: PATIENT WAS FASTINGP ERFORMED BY: LabCo Cnymzw1520 [address] RoadDuin [place] [id number] Glucose Ql (U) Negative Normal Comprehens shanta Internal Medicine Work Phone: Comment on above: PATIENT WAS FASTINGP ERFORMED BY: [facility] Vqmfzw2077 [address] RoadDublin [place] [id number] Glucose Ql (U) Negative Normal Comprehens shanta Internal Medicine; [facility] Work Phone: Hemoglobin Ql (U) 2+ Abnormal Compreh ensive Internal Medicine Work Phone: Comment on above: PATIENT WAS FASTINGP ERFORMED BY: ALEX LabCodaniella ManleyUsrlup1629 [address] RoadDublin [place] [id number] Hemoglobin Test strip Ql (U) 2+ Abnormal [facility] Work Phone: Ketones Ql (U) Negative Normal Comprehens shanta Internal Medicine Work Phone: Comment on above: PATIENT WAS FASTINGP ERFORMED BY: ALEX LabCodaniella ManleyIdnepc2162 [address] RoadDublin [place] [id number] Ketones Ql (U) Negative Normal Comprehens shanta Internal Medicine; [facility] Work Phone: Leukocyte esterase Test strip Ql (U) 2+ Abnormal [facility] Work Phone: Comment on above: PATIENT WAS FASTINGP ERFORMED BY: ALEX Manleylin6370 [address] RoadDublin [place] [id number] Microscopic observation LM Nom (Urine sed) See below: Normal [facility] Work Phone: Comment on above: PATIENT WAS FASTINGP ERFORMED BY: ALEX Manleylin6370 [address] RoadDublin [place] [id number] Nitrite Ql (U) Negative Normal Comprehens shanta Internal Medicine Work Phone: Comment on above: PATIENT WAS FASTINGP ERFORMED BY: ALEX Manleylin6370 [address] RoadDublin [place] [id number] Nitrite Ql (U) Negative Normal Comprehens shanta Internal Medicine; [facility] Work Phone: Nitrite Test strip Ql (U) Negative Normal [facility] Work Phone: pH (U) 6.0 [pH] Normal 5.0-7.5 [facility] Work Phone: Comment on above: PATIENT WAS FASTINGP ERFORMED BY: ALEX [facility] Wtzcro1207 [address] RoadDublin [place] [id number] pH Test strip (U) 6.0 [pH] Normal 5.0-7.5 Compreh ensive Internal Medicine Work Phone: Protein Ql (U) Negative Normal Comprehens shanta Internal Medicine Work Phone: Comment on above: PATIENT WAS FASTINGP ERFORMED BY: [employer] Lldzjj0968 [facility] [id number] Protein Ql (U) Negative Normal Comprehens shanta Internal Medicine; [facility] Work Phone: Protein Test strip Ql (U) Negative Normal [facility] Work Phone: Specific gravity Relative Density (U) 1.015 1 Normal 1.005-1.03 0 [facility] Work Phone: Comment on above: PATIENT WAS FASTINGP ERFORMED BY: LabSc[facility] Plcipp9445 [facility] [id number] Urobilinogen (U) [Mass/Vol] 0.2 mg/dL Normal 0.0-1.9 [facility]; [facility] Work Phone: Urobilinogen Test strip mass conc (U) 0.2 mg/dL Normal 0.0-1.9 Comprehensiv e Internal Medicine Work Phone: Comment on above: PATIENT WAS FASTINGP ERFORMED BY: [employer] Ueomnf8676 [facility] [id number] Bordetella Pertussis PCR ([id number] [id number])Ordered By: Coil Maker on 01-15-2012 B. parapertussis DNA MITESH+probe Ql (Unsp spec) Negative Normal [facility] Work Phone: Comment on above: .This test was devel oped and its performance characteristics determinedby [employer]. It has not been cleared or approved by theU.S. Food and Drug Administration. The FDA has determined that suchclearance or approval is not necessary. This test is used for clinicalpurposes. It should not be regarded as investigational or research. PATIENT NOT FASTINGP ERFORMED BY: BRITTANY [employer] Oak[address] [facility] [id number] Information: SRC:NOS [id number] B. parapertussis DNA MITESH+probe Ql (Unsp spec) Negative Normal [facility] Work Phone: B. pertussis DNA MITESH+probe Ql (Unsp spec) Negative Normal [facility] Work Phone: Comment on above: PATIENT NOT FASTINGP ERFORMED BY: Gamar [id number] David Collazo [facility] [place] [id number] Information: SRC:NOS [id number] B. pertussis DNA MITESH+probe Ql (Unsp spec) Negative Normal [facility] Work Phone: Vital Signs Date Time Vital Sign Value Performing Clinician Facility 03-29-2025 15:26-0400 Body height 172.[address] Bronson Bynum MD Work Phone: [facility] 03-29-2025 15:26-0400 Body mass index (BMI) [Ratio] 29 kg/m2 Dr. Bronson Bynum MD Work Phone: [facility] 03-29-2025 15:26-0400 Body temperature 98.2 [degF] Dr. Bronson Bynum MD Work Phone: [facility] 03-29-2025 15:26-0400 Body weight 86.[address] Bronson Bynum MD Work Phone: [facility] 03-29-2025 15:26-0400 Diastolic blood pressure 68 mm[Hg] Dr. Bronson Bynum MD Work Phone: [facility] 03-29-2025 15:26-0400 Heart rate 78 /min Dr. Bronson Bynum MD Work Phone: [facility] 03-29-2025 15:26-0400 Respiratory rate 18 /min Dr. Bronson Bynum MD Work Phone: [facility] 03-29-2025 15:26-0400 SaO2% (BldA) [Mass fraction] 97 % Dr. Bronson Bnyum MD Work Phone: [facility] 03-29-2025 15:26-0400 Systolic blood pressure 131 mm[Hg] Dr. Bronson Bynum MD Work Phone: [facility] 01-20-2025 14:07-0400 Body height 172.[address] Bronson Bynum MD Work Phone: [facility] 01-20-2025 14:07-0400 Body mass index (BMI) [Ratio] 28.4 kg/m2 Dr. Bronson Bynum MD Work Phone: [facility] 01-20-2025 14:07-0400 Body temperature 97.6 [degF] Dr. Bronson Bynum MD Work Phone: [facility] 01-20-2025 14:07-0400 Body weight 84.[address] Bronson Bynum MD Work Phone: [facility] 01-20-2025 14:07-0400 Diastolic blood pressure 64 mm[Hg] Dr. Bronson Bynum MD Work Phone: [facility] 01-20-2025 14:07-0400 Heart rate 59 /min Dr. Bronson Bynum MD Work Phone: [facility] 01-20-2025 14:07-0400 Respiratory rate 16 /min Dr. Bronson Byunm MD Work Phone: [facility] 01-20-2025 14:07-0400 SaO2% (BldA) [Mass fraction] 93 % Dr. Bronson Bynum MD Work Phone: [facility] 01-20-2025 14:07-0400 Systolic blood pressure 124 mm[Hg] Dr. Bronson Bynum MD Work Phone: [facility] 11-27-2024 14:02-0400 Body height 172.[address] Bronson Bynum MD Work Phone: [facility] 11-27-2024 14:02-0400 Body mass index (BMI) [Ratio] 27.8 kg/m2 Dr. Bronson Bynum MD Work Phone: [facility] 11-27-2024 14:02-0400 Body temperature 97.1 [degF] Dr. Bronson Bynum MD Work Phone: [facility] 11-27-2024 14:02-0400 Body weight 83.[address] Bronson Bynum MD Work Phone: [facility] 11-27-2024 14:02-0400 Diastolic blood pressure 64 mm[Hg] Dr. Bronson Bynum MD Work Phone: [facility] 11-27-2024 14:02-0400 Heart rate 68 /min Dr. Bronson Bynum MD Work Phone: [facility] 11-27-2024 14:02-0400 Respiratory rate 16 /min Dr. Bronson Bynum MD Work Phone: [facility] 11-27-2024 14:02-0400 SaO2% (BldA) [Mass fraction] 94 % Dr. Bronson Bynum MD Work Phone: [facility] 11-27-2024 14:02-0400 Systolic blood pressure 122 mm[Hg] Dr. Bronson Bynum MD Work Phone: [facility] 09-16-2024 13:33-0500 Body mass index (BMI) [Ratio] 27.8 kg/m2 Dr. Bronson Bynum MD Work Phone: [facility] 09-16-2024 13:33-0500 Body temperature 96.7 [degF] Dr. Bronson Bynum MD Work Phone: [facility] 09-16-2024 13:33-0500 Body weight [address] Bronson Bynum MD Work Phone: [facility] 09-16-2024 13:33-0500 Diastolic blood pressure 64 mm[Hg] Dr. Bronson Bynum MD Work Phone: [facility] 09-16-2024 13:33-0500 Heart rate 70 /min Dr. Bronson Bynum MD Work Phone: [facility] 09-16-2024 13:33-0500 Respiratory rate 14 /min Dr. Bronson Bynum MD Work Phone: [facility] 09-16-2024 13:33-0500 SaO2% (BldA) [Mass fraction] 97 % Dr. Bronson Bynum MD Work Phone: [facility] 09-16-2024 13:33-0500 Systolic blood pressure 122 mm[Hg] Dr. Bronson Bynum MD Work Phone: [facility] 06-05-2024 10:04-0500 Diastolic Blood Pressure Non-Invasive 64 mm[Hg] DR TYLER JOHNSON MD [facility] 06-05-2024 10:04-0500 Heart rate 59 /min DR TYLER JOHNSON MD [facility] 06-05-2024 10:04-0500 Respiratory rate 14 /min DR TYLRE JOHNSON MD [facility] 06-05-2024 10:04-0500 Systolic Blood Pressure Non-Invasive 136 mm[Hg] DR TYLER JOHNSON MD [facility] 06-05-2024 09:50-0500 Body temperature 97.52 [degF] DR TYLER JOHNSON MD [facility] 06-05-2024 09:50-0500 Diastolic Blood Pressure Non-Invasive 70 mm[Hg] DR TYLER JOHNSON MD [facility] 06-05-2024 09:50-0500 Heart rate 60 /min DR TYLER JOHNSON MD [facility] 06-05-2024 09:50-0500 Respiratory rate 17 /min DR TYLER JOHNSON MD [facility] 06-05-2024 09:50-0500 Respiratory Rate - Anes 0 br/min DR TYLER JOHNSON MD [facility] 06-05-2024 09:50-0500 Systolic Blood Pressure Non-Invasive 145 mm[Hg] DR TYLER JOHNSON MD [facility] 06-05-2024 09:45-0500 Diastolic Blood Pressure Non-Invasive 81 mm[Hg] DR TYLER JOHNSON MD [facility] 06-05-2024 09:45-0500 Heart rate 56 /min DR TYLER JOHNSON MD [facility] 06-05-2024 09:45-0500 Respiratory Rate - Anes 14 br/min DR TYLER JOHNSON MD [facility] 06-05-2024 09:45-0500 Systolic Blood Pressure Non-Invasive 123 mm[Hg] DR TYLER JOHNSON MD [facility] 06-05-2024 09:40-0500 Respiratory Rate - Anes 0 br/min DR TYLER JOHNSON MD [facility] 06-05-2024 08:16-0500 Body height 175.[address] TYLER JOHNSON MD [facility] 06-05-2024 08:16-0500 Body temperature 97.52 [degF] DR TYLER JOHNSON MD [facility] 06-05-2024 08:16-0500 Body weight [address] TYLER JOHNSON MD [facility] 06-05-2024 08:16-0500 Body weight 26.7 kg/m2 DR TYLER JOHNSON MD [facility] 06-05-2024 08:16-0500 Heart rate 61 /min DR TYLER JOHNSON MD [facility] 06-05-2024 08:16-0500 Respiratory rate 16 /min DR TYLER JOHNSON MD [facility] 03-29-2024 15:50-0400 Diastolic Blood Pressure Non-Invasive 67 mm[Hg] PAT DELGADILLO MD [facility] 03-29-2024 15:50-0400 Heart rate 60 /min PAT DELGADILLO MD [facility] 03-29-2024 15:50-0400 Respiratory rate 16 /min PAT DELGADILLO MD [facility] 03-29-2024 15:50-0400 Systolic Blood Pressure Non-Invasive 143 mm[Hg] PAT DELGADILLO MD [facility] 03-29-2024 14:51-0400 Diastolic Blood Pressure Non-Invasive 73 mm[Hg] PAT DELGADILLO MD [facility] 03-29-2024 14:51-0400 Heart rate 54 /min PAT DELGADILLO MD [facility] 03-29-2024 14:51-0400 Reason For Taking VItal Signs PAT DELGADILLO MD [facility] 03-29-2024 14:51-0400 Respiratory rate 16 /min PAT DELGADILLO MD [facility] 03-29-2024 14:51-0400 Systolic Blood Pressure Non-Invasive 146 mm[Hg] PAT DELGADILLO MD [facility] 03-29-2024 12:59-0400 Body temperature 98.24 [degF] PAT DELGADILLO MD [facility] 03-29-2024 12:59-0400 Body weight 82.1 kg PAT DELGADILLO MD [facility] 03-29-2024 12:59-0400 Diastolic Blood Pressure Non-Invasive 68 mm[Hg] PAT DELGADILLO MD [facility] 03-29-2024 12:59-0400 Heart rate 70 /min PAT DELGADILLO MD [facility] 03-29-2024 12:59-0400 Respiratory rate 18 /min PAT DELGADILLO MD [facility] 03-29-2024 12:59-0400 Systolic Blood Pressure Non-Invasive 164 mm[Hg] APT DELGADILLO MD [facility] 01-09-2024 14:32-0400 Diastolic Blood Pressure Non-Invasive 59 mm[Hg] DR CESAR BELLA MD [facility] 01-09-2024 14:32-0400 Heart rate 69 /min DR CESAR BELLA MD [facility] 01-09-2024 14:32-0400 Mean blood pressure 79 mm[Hg] DR CESAR BELLA MD [facility] 01-09-2024 14:32-0400 Respiratory rate 16 /min DR CESAR BELLA MD [facility] 01-09-2024 14:32-0400 Systolic Blood Pressure Non-Invasive 127 mm[Hg] DR CESAR BELLA MD [facility] 01-09-2024 12:18-0400 Body temperature 99.14 [degF] DR CESAR BELLA MD [facility] 01-09-2024 12:18-0400 Diastolic Blood Pressure Non-Invasive 75 mm[Hg] DR CESAR BELLA MD [facility] 01-09-2024 12:18-0400 Heart rate 89 /min DR CESAR BELLA MD [facility] 01-09-2024 12:18-0400 Respiratory rate 16 /min DR CESAR BELLA MD [facility] 01-09-2024 12:18-0400 Systolic Blood Pressure Non-Invasive 134 mm[Hg] DR CESAR BELLA MD [facility] 08-28-2023 13:42-0500 Body height 172.[address] Bronson Bynum Work Phone: [facility] 08-28-2023 13:42-0500 Body mass index (BMI) [Ratio] 27.8 kg/m2 Dr. Bronson Bynum Work Phone: [facility] 08-28-2023 13:42-0500 Body temperature 97.1 [degF] Dr. Bronson Bynum Work Phone: [facility] 08-28-2023 13:42-0500 Body weight [address] Bronson Bynum Work Phone: [facility] 08-28-2023 13:42-0500 Diastolic blood pressure 72 mm[Hg] Dr. Bronson Bynum Work Phone: [facility] 08-28-2023 13:42-0500 Heart rate 62 /min Dr. Bronson Bynum Work Phone: [facility] 08-28-2023 13:42-0500 Respiratory rate 16 /min Dr. Bronson Bynum Work Phone: [facility] 08-28-2023 13:42-0500 SaO2% (BldA) [Mass fraction] 94 % Dr. Bronson Bynum Work Phone: [facility] 08-28-2023 13:42-0500 Systolic blood pressure 110 mm[Hg] Dr. Bronson Bynum Work Phone: [facility] 08-14-2023 13:02-0500 Body mass index (BMI) [Ratio] 27.6 kg/m2 Dr. Bronson Bynum Work Phone: [facility] 08-14-2023 13:02-0500 Body temperature 98.4 [degF] Dr. Bronson Bynum Work Phone: [facility] 08-14-2023 13:02-0500 Body weight 82.[address] Bronson Bynum Work Phone: [facility] 08-14-2023 13:02-0500 Diastolic blood pressure 68 mm[Hg] Dr. Bronson Bynum Work Phone: [facility] 08-14-2023 13:02-0500 Heart rate 72 /min Dr. Bronson Bynum Work Phone: [facility] 08-14-2023 13:02-0500 Respiratory rate 16 /min Dr. Bronson Bynum Work Phone: [facility] 08-14-2023 13:02-0500 SaO2% (BldA) [Mass fraction] 94 % Dr. Bronson Bynum Work Phone: [facility] 08-14-2023 13:02-0500 Systolic blood pressure 112 mm[Hg] Dr. Bronson Bynum Work Phone: [facility] 03-28-2023 14:34-0400 Body height 172.[address] Bronson Bynum Work Phone: [facility] 03-28-2023 14:34-0400 Body mass index (BMI) [Ratio] 28.4 kg/m2 Dr. Bronson Bynum Work Phone: [facility] 03-28-2023 14:34-0400 Body temperature 96.7 [degF] Dr. Bronson Bynum Work Phone: [facility] 03-28-2023 14:34-0400 Body weight 84.[address] Bronson Bynum Work Phone: [facility] 03-28-2023 14:34-0400 Diastolic blood pressure 76 mm[Hg] Dr. Bronson Bynum Work Phone: [facility] 03-28-2023 14:34-0400 Heart rate 71 /min Dr. Bronson Bynum Work Phone: [facility] 03-28-2023 14:34-0400 Respiratory rate 18 /min Dr. Bronson Bynum Work Phone: [facility] 03-28-2023 14:34-0400 SaO2% (BldA) [Mass fraction] 93 % Dr. Bronson Bynum Work Phone: [facility] 03-28-2023 14:34-0400 Systolic blood pressure 136 mm[Hg] Dr. Bronson Bynum Work Phone: [facility] 08-27-2022 12:59-0500 Body height 172.[address] Bronson Bynum Work Phone: [facility] 08-27-2022 12:59-0500 Body mass index (BMI) [Ratio] 28.3 kg/m2 Dr. Bronson Bynum Work Phone: [facility] 08-27-2022 12:59-0500 Body temperature 96.1 [degF] Dr. Bronson Bynum Work Phone: [facility] 08-27-2022 12:59-0500 Body weight 84.[address] Bronson Bynum Work Phone: [facility] 08-27-2022 12:59-0500 Diastolic blood pressure 84 mm[Hg] Dr. Bronson Bynum Work Phone: [facility] 08-27-2022 12:59-0500 Heart rate 74 /min Dr. Bronson Bynum Work Phone: [facility] 08-27-2022 12:59-0500 Respiratory rate 18 /min Dr. Bronson Bynum Work Phone: [facility] 08-27-2022 12:59-0500 SaO2% (BldA) [Mass fraction] 95 % Dr. Bronson Bynum Work Phone: [facility] 08-27-2022 12:59-0500 Systolic blood pressure 142 mm[Hg] Dr. Bronson Bynum Work Phone: [facility] 11-08-2021 12:02-0400 Body height 156.21 cm Tabatha Nuha DO Work Phone: [facility] [...] Derived from formula 1.82 m2 Tammy Toth LPN [facility]; [facility] Work Phone: 03-01-2021 12:44-0400 Body temperature 97.1 [degF] Tammy Toth LPN [facility]; [facility] Work Phone: 03-01-2021 12:44-0400 Body weight 82.1 kg Tammy Toth LPN [facility]; [facility] Work Phone: 03-01-2021 12:44-0400 Diastolic blood pressure 70 mm[Hg] Tammy Toth LPN [facility]; [facility] Work Phone: 03-01-2021 12:44-0400 Heart rate 77 /min Tammy Toth LPN [facility]; [facility] Work Phone: 03-01-2021 12:44-0400 Respiratory rate 16 /min Tammy Toth LPN [facility]; [facility] Work Phone: 03-01-2021 12:44-0400 SaO2% (BldA) [Mass fraction] 97 % Tammy Toth LPN [facility]; [facility] Work Phone: 03-01-2021 12:44-0400 Systolic blood pressure 130 mm[Hg] Tammy Toth LPN [facility]; [facility] Work Phone: 08-31-2020 10:19-0500 BMI (Body Mass Index) 34.2 kg/m2 Mihaela Hui CNP Work Phone: [facility]; [facility] Work Phone: 08-31-2020 10:19-0500 Body weight 83.46 kg Mihaela Hui SENIOR HEALTH EDUCATOR Work Phone: [facility]; [facility] Work Phone: 08-31-2020 10:19-0500 BP Diastolic 61 mm[Hg] Mihaela Hui CNP Work Phone: [facility]; [facility] Work Phone: Comment on above: Patient Position: Supine; Cuff Location: Right Arm; Cuff Size: Standard 08-31-2020 10:19-0500 BP Systolic 132 mm[Hg] Mihaela Hui CNP Work Phone: [facility]; [facility] Work Phone: Comment on above: Patient Position: Supine; Cuff Location: Right Arm; Cuff Size: Standard 08-31-2020 10:19-0500 BSA (Body Surface Area) 1.83 m2 Mihaela Hui SENIOR HEALTH EDUCATOR Work Phone: [facility]; [facility] Work Phone: 08-31-2020 10:19-0500 Height 156.21 cm Mihaela Hui CNP Work Phone: [facility]; [facility] Work Phone: 08-31-2020 10:19-0500 Pulse (Heart Rate) 56 /min Mihaela Hui SENIOR HEALTH EDUCATOR Work Phone: [facility]; [facility] Work Phone: Comment on above: Pattern: Regular 06-06-2020 11:06-0500 BMI (Body Mass Index) 33.65 kg/m2 William Lara LPN [facility] Work Phone: 06-06-2020 11:06-0500 Body weight 82.1 kg William Marco 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 [facility] Work Phone: 06-06-2020 11:06-0500 BSA (Body Surface Area) 1.82 m2 William Lara 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 [facility] Work Phone: 06-06-2020 11:06-0500 Height 156.21 cm William Laar 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 [facility] Work Phone: 03-16-2020 13:35-0400 BMI (Body Mass Index) 33.65 kg/m2 Rupa Slarb 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 [facility] Work Phone: 03-16-2020 13:35-0400 Body Temperature 97.1 [degF] Rupa Slarb 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 [facility] Work Phone: 03-16-2020 13:35-0400 Body weight 82.1 kg Rupa Slarb 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 [facility] Work Phone: 03-16-2020 13:35-0400 BP Diastolic 68 mm[Hg] Rupa Slarb 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 [facility] Work Phone: Comment on above: Patient Position: Sitting; Cuff Location : Left Arm; Cuff Size: Standard 03-16-2020 13:35-0400 BP Systolic 120 mm[Hg] Rupa Slarb 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 [facility] Work Phone: Comment on above: Patient Position: Sitting; Cuff Location : Left Arm; Cuff Size: Standard 03-16-2020 13:35-0400 BSA (Body Surface Area) 1.82 m2 Rupa Slarb 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 [facility] Work Phone: 03-16-2020 13:35-0400 Height 156.21 cm Rupa Slarb 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 [facility] Work Phone: 03-16-2020 13:35-0400 Pulse (Heart Rate) 59 /min Rupa Slarb 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 [facility] Work Phone: Comment on above: Pattern: Regular 03-16-2020 13:35-0400 Pulse Oximetry 95 % Mihaela Loweross [facility] Work Phone: Comment on above: Room air 03-16-2020 13:35-0400 Respiratory Rate 16 /min Rupa Kanika DOZIER [facility] Work Phone: Comment on above: Pattern: Unlabored 03-16-2020 13:35-0400 SaO2% (BldA) [Mass fraction] 95 % Rupa Boudreaux LPN [facility]; [facility] Work Phone: 09-14-2019 11:57-0500 BMI (Body Mass Index) 33.84 kg/m2 William Lara LPN [facility] Work Phone: 09-14-2019 11:57-0500 Body Temperature 97.8 [degF] William Lara 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 [facility] Work Phone: Comment on above: Method: Temporal 09-14-2019 11:57-0500 Body weight 82.57 kg William Lara LPN [facility] Work Phone: 09-14-2019 11:57-0500 BP Diastolic 78 mm[Hg] William Lara LPN [facility] Work Phone: Comment on above: Patient Position: Sitting; Cuff Location : Left Arm; Cuff Size: Standard 09-14-2019 11:57-0500 BP Systolic 160 mm[Hg] William Lara LPN [facility] Work Phone: Comment on above: Patient Position: Sitting; Cuff Location : Left Arm; Cuff Size: Standard 09-14-2019 11:57-0500 BSA (Body Surface Area) 1.83 m2 William Lara LPN [facility] Work Phone: 09-14-2019 11:57-0500 Height 156.21 cm William Lara LPN [facility] Work Phone: 09-14-2019 11:57-0500 Pulse (Heart Rate) 58 /min William Lara LPN [facility] Work Phone: Comment on above: Pattern: Regular 09-14-2019 11:57-0500 Pulse Oximetry 97 % Mihaela Lowedidierross [facility] Work Phone: Comment on above: Room air 09-14-2019 11:57-0500 Respiratory Rate 16 /min William Lara LPN [facility] Work Phone: Comment on above: Pattern: Unlabored 09-14-2019 11:57-0500 SaO2% (BldA) [Mass fraction] 97 % William Lara LPN [facility]; [facility] Work Phone: 08-18-2019 13:57-0500 BMI (Body Mass Index) 34.21 kg/m2 William Lara LPN [facility] Work Phone: 08-18-2019 13:57-0500 Body Temperature 97.8 [degF] William Lara LPN [facility] Work Phone: Comment on above: Method: Temporal 08-18-2019 13:57-0500 Body weight 83.47 kg William Lara LPN [facility] Work Phone: 08-18-2019 13:57-0500 BP Diastolic 62 mm[Hg] William Lara LPN [facility] Work Phone: Comment on above: Patient Position: Sitting; Cuff Location : Left Arm; Cuff Size: Standard 08-18-2019 13:57-0500 BP Systolic 122 mm[Hg] William Lara LPN [facility] Work Phone: Comment on above: Patient Position: Sitting; Cuff Location : Left Arm; Cuff Size: Standard 08-18-2019 13:57-0500 BSA (Body Surface Area) 1.83 m2 William Lara LPN [facility] Work Phone: 08-18-2019 13:57-0500 Height 156.21 cm William Lara LPN [facility] Work Phone: 08-18-2019 13:57-0500 Pulse (Heart Rate) 67 /min William aLra LPN [facility] Work Phone: Comment on above: Pattern: Regular 08-18-2019 13:57-0500 Pulse Oximetry 97 % Mihaela Hui [facility] Work Phone: Comment on above: Room air 08-18-2019 13:57-0500 Respiratory Rate 16 /min William Lara LPN [facility] Work Phone: Comment on above: Pattern: Unlabored 08-18-2019 13:57-0500 SaO2% (BldA) [Mass fraction] 97 % William Lara 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 [facility]; [facility] Work Phone: 06-08-2019 15:04-0500 BMI (Body Mass Index) 33.55 kg/m2 Tammy Toth LPN [facility] Work Phone: 06-08-2019 15:04-0500 Body Temperature 97.3 [degF] Tammy Toth LPN [facility] Work Phone: 06-08-2019 15:04-0500 Body weight 81.87 kg Tammy Toth LPN [facility] Work Phone: 06-08-2019 15:04-0500 BP Diastolic 82 mm[Hg] Tammy Toth LPN [facility] Work Phone: Comment on above: Patient Position: Sitting; Cuff Location : Left Arm; Cuff Size: Standard 06-08-2019 15:04-0500 BP Systolic 160 mm[Hg] [facility] Work [facility]: Comment on above: Patient Position: Sitting; Cuff Location : Left Arm; Cuff Size: Standard 06-08-2019 15:04-0500 BSA (Body Surface Area) 1.82 m2 Tammy Toth LPN [facility] Work Phone: 06-08-2019 15:04-0500 Height 156.21 cm Tammy Toth LPN [facility] Work Phone: 06-08-2019 15:04-0500 Pulse (Heart Rate) 73 /min Tammy Toth LPN [facility] Work Phone: Comment on above: Pattern: Regular 06-08-2019 15:04-0500 Pulse Oximetry 96 % Mihaela Lowedidierross [facility] Work Phone: Comment on above: Room air 06-08-2019 15:04-0500 Respiratory Rate 16 /min Tammy Toth LPN [facility] Work Phone: Comment on above: Pattern: Unlabored 06-08-2019 15:04-0500 SaO2% (BldA) [Mass fraction] 96 % Tammy Navneet DOZIER [facility]; [facility] Work Phone: 09-15-2018 13:57-0500 BMI (Body Mass Index) 35.88 kg/m2 Katalina Thomas [facility] Work Phone: 09-15-2018 13:57-0500 Body weight 87.54 kg Katalina Thomas [facility] Work Phone: 09-15-2018 13:57-0500 BP Diastolic 72 mm[Hg] Katalina Thomas [facility] Work Phone: Comment on above: Patient Position: Standing; Cuff Locatio n: Left Arm; Cuff Size: Standard 09-15-2018 13:57-0500 BP Systolic 132 mm[Hg] Katalina Thomas [facility] Work Phone: Comment on above: Patient Position: Standing; Cuff Locatio n: Left Arm; Cuff Size: Standard 09-15-2018 13:57-0500 BSA (Body Surface Area) 1.87 m2 Katalina Thomas [facility] Work Phone: 09-15-2018 13:57-0500 Height 156.21 cm Katalina Thomas [facility] Work Phone: 09-15-2018 13:57-0500 Pulse (Heart Rate) 62 /min Katalina Thomas [facility] Work Phone: Comment on above: Pattern: Regular 09-15-2018 13:57-0500 Weight 87.54 kg Mihaela Lowedidierross [facility] Work Phone: 09-15-2018 13:50-0500 BMI (Body Mass Index) 35.88 kg/m2 Katalina Thomas [facility] Work Phone: 09-15-2018 13:50-0500 Body Temperature 97.7 [degF] Katalina Thomas [facility] Work Phone: Comment on above: Method: Temporal 09-15-2018 13:50-0500 Body weight 87.54 kg Katalina Thomas [facility] Work Phone: 09-15-2018 13:50-0500 BP Diastolic 72 mm[Hg] Katalina Thomas [facility] Work Phone: Comment on above: Patient Position: Sitting; Cuff Location : Left Arm; Cuff Size: Standard 09-15-2018 13:50-0500 BP Systolic 128 mm[Hg] Katalina Thomas [facility] Work Phone: Comment on above: Patient Position: Sitting; Cuff Location : Left Arm; Cuff Size: Standard 09-15-2018 13:50-0500 BSA (Body Surface Area) 1.87 m2 Katalina Thomas [facility] Work Phone: 09-15-2018 13:50-0500 Height 156.21 cm Katalina Thomas [facility] Work Phone: 09-15-2018 13:50-0500 Pulse (Heart Rate) 56 /min Katalina Thomas [facility] Work Phone: Comment on above: Pattern: Regular 09-15-2018 13:50-0500 Pulse Oximetry 96 % Mihaela Hui [facility] Work Phone: Comment on above: Room air 09-15-2018 13:50-0500 Respiratory Rate 18 /min Katalina Thomas [facility] Work Phone: Comment on above: Pattern: Unlabored 09-15-2018 13:50-0500 SaO2% (BldA) [Mass fraction] 96 % Katalina Thomas [facility]; [facility] Work Phone: 09-15-2018 13:50-0500 Weight 87.54 kg Mihaela Rolandross [facility] Work Phone: 09-12-2018 10:22-0500 BP Diastolic 60 mm[Hg] Mihaela Hui SENIOR HEALTH EDUCATOR Work Phone: [facility] Work Phone: Comment on above: Patient Position: Standing; Cuff Locatio n: Right Arm; Cuff Size: Standard 09-12-2018 10:22-0500 BP Systolic 102 mm[Hg] Mihaela Hui SENIOR HEALTH EDUCATOR Work Phone: [facility] Work Phone: Comment on above: Patient Position: Standing; Cuff Locatio n: Right Arm; Cuff Size: Standard 09-12-2018 10:22-0500 Pulse (Heart Rate) 100 /min Mihaela Hui SENIOR HEALTH EDUCATOR Work Phone: [facility] Work Phone: Comment on above: Pattern: Regular 09-12-2018 10:22-0500 BP Diastolic 68 mm[Hg] Mihaela Hui SENIOR HEALTH EDUCATOR Work Phone: [facility] Work Phone: Comment on above: Patient Position: Sitting; Cuff Location : Right Arm; Cuff Size: Standard 09-12-2018 10:22-0500 BP Systolic 118 mm[Hg] Mihaela Rolanda SENIOR HEALTH EDUCATOR Work Phone: [facility] Work Phone: Comment on above: Patient Position: Sitting; Cuff Location : Right Arm; Cuff Size: Standard 09-12-2018 10:22-0500 Pulse (Heart Rate) 89 /min Mihaela Hui SENIOR HEALTH EDUCATOR Work Phone: [facility] Work Phone: Comment on above: Pattern: Regular 09-12-2018 09:55-0500 BMI (Body Mass Index) 35.88 kg/m2 William Lara [facility] Work Phone: 09-12-2018 09:55-0500 Body Temperature 97.6 [degF] William Lara [facility] Work Phone: Comment on above: Method: Temporal 09-12-2018 09:55-0500 Body weight 87.54 kg William Lara 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 [facility] Work Phone: 09-12-2018 09:55-0500 BP Diastolic 72 mm[Hg] William Lara [facility] Work Phone: Comment on above: Patient Position: Sitting; Cuff Location : Left Arm; Cuff Size: Standard 09-12-2018 09:55-0500 BP Systolic 120 mm[Hg] William Lara [facility] Work Phone: Comment on above: Patient Position: Sitting; Cuff Location : Left Arm; Cuff Size: Standard 09-12-2018 09:55-0500 BSA (Body Surface Area) 1.87 m2 William Marco DOZIER [facility] Work Phone: 09-12-2018 09:55-0500 Height 156.21 cm William Marco DOZIER [facility] Work Phone: 09-12-2018 09:55-0500 Pulse (Heart Rate) 92 /min William Lara TASIA [facility] Work Phone: Comment on above: Pattern: Regular 09-12-2018 09:55-0500 Pulse Oximetry 97 % Mihaela Hui [facility] Work Phone: Comment on above: Room air 09-12-2018 09:55-0500 Respiratory Rate 19 /min William Lara LPN [facility] Work Phone: Comment on above: Pattern: Unlabored 09-12-2018 09:55-0500 SaO2% (BldA) [Mass fraction] 97 % William Lara LPN [facility]; [facility] Work Phone: 09-12-2018 09:55-0500 Weight 87.54 kg Mihaela Hui [facility] Work Phone: 07-09-2018 11:27-0500 BMI (Body Mass Index) 35.88 kg/m2 Katalina Murphylear [facility] Work Phone: 07-09-2018 11:27-0500 Body Temperature 97.2 [degF] Katalina Murphylear [facility] Work Phone: Comment on above: Method: Temporal 07-09-2018 11:27-0500 Body weight 87.54 kg Katalina Murphylear [facility] Work Phone: 07-09-2018 11:27-0500 BP Diastolic 62 mm[Hg] Katalina Murphylear [facility] Work Phone: Comment on above: Patient Position: Sitting; Cuff Location : Left Arm; Cuff Size: Standard 07-09-2018 11:27-0500 BP Systolic 122 mm[Hg] Katalina Thomas [facility] Work Phone: Comment on above: Patient Position: Sitting; Cuff Location : Left Arm; Cuff Size: Standard 07-09-2018 11:27-0500 BSA (Body Surface Area) 1.87 m2 Katalina Thomas [facility] Work Phone: 07-09-2018 11:27-0500 Height 156.21 cm Katalina Thomas [facility] Work Phone: 07-09-2018 11:27-0500 Pulse (Heart Rate) 52 /min Katalina Thomas [facility] Work Phone: Comment on above: Pattern: Regular 07-09-2018 11:27-0500 Pulse Oximetry 96 % Mihaela Hui [facility] Work Phone: Comment on above: Room air 07-09-2018 11:27-0500 Respiratory Rate 17 /min Katalina Thomas [facility] Work Phone: Comment on above: Pattern: Unlabored 07-09-2018 11:27-0500 SaO2% (BldA) [Mass fraction] 96 % Katalina Thomas [facility]; [facility] Work Phone: 07-09-2018 11:27-0500 Weight 87.54 kg Mihaela Hui [facility] Work Phone: 10-21-2017 13:40-0400 BMI (Body Mass Index) 35.88 kg/m2 Rupa Boudreaux 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 [facility] Work Phone: 10-21-2017 13:40-0400 Body Temperature 97.8 [degF] Rupa Slarb 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 [facility] Work Phone: 10-21-2017 13:40-0400 Body weight 87.54 kg Rupa Hayrb 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 [facility] Work Phone: 10-21-2017 13:40-0400 BP Diastolic 72 mm[Hg] Rupa Slarb 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 [facility] Work Phone: Comment on above: Patient Position: Sitting; Cuff Location : Left Arm; Cuff Size: Standard 10-21-2017 13:40-0400 BP Systolic 116 mm[Hg] Rupa Slarb 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 [facility] Work Phone: Comment on above: Patient Position: Sitting; Cuff Location : Left Arm; Cuff Size: Standard 10-21-2017 13:40-0400 BSA (Body Surface Area) 1.87 m2 Rupa Boudreaux 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 [facility] Work Phone: 10-21-2017 13:40-0400 Height 156.21 cm Rupa Boudreaux 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 [facility] Work Phone: 10-21-2017 13:40-0400 Pulse (Heart Rate) 62 /min Rupa Boudreaux 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 [facility] Work Phone: Comment on above: Pattern: Regular 10-21-2017 13:40-0400 Pulse [facility] 98 % [facility]: Comment on above: Room air 10-21-2017 13:40-0400 Respiratory Rate 16 /min Rupa Hayrena DOZIER [facility] Work Phone: Comment on above: Pattern: Unlabored 10-21-2017 13:40-0400 SaO2% (BldA) [Mass fraction] 98 % Rupa Kanika [facility]; [facility] Work Phone: 10-21-2017 13:40-0400 Weight 87.54 kg Mihaela Hui [facility] Work Phone: 10-18-2017 07:55-0400 BMI (Body Mass Index) 35.88 kg/m2 William Lara [facility] Work Phone: 10-18-2017 07:55-0400 Body Temperature 98.7 [degF] William Lara [facility] Work Phone: 10-18-2017 07:55-0400 Body weight 87.54 kg William Lara [facility] Work Phone: 10-18-2017 07:55-0400 BP Diastolic 82 mm[Hg] William Lara [facility] Work Phone: Comment on above: Patient Position: Sitting; Cuff Location : Left Arm; Cuff Size: Standard 10-18-2017 07:55-0400 BP Systolic 134 mm[Hg] William Lara [facility] Work Phone: Comment [...] 07:55-0400 Pulse Oximetry 97 % Mihaela Korina [facility] Work Phone: Comment on above: Room air 10-18-2017 07:55-0400 Respiratory Rate 17 /min William Lara LPN [facility] Work Phone: Comment on above: Pattern: Unlabored 10-18-2017 07:55-0400 SaO2% (BldA) [Mass fraction] 97 % William Lara LPN [facility]; [facility] Work Phone: 10-18-2017 07:55-0400 Weight 87.54 kg Mihaela Rolandross [facility] Work Phone: 08-19-2017 13:51-0500 BMI [...] Work Phone: 08-19-2017 13:51-0500 Height 156.21 cm Meliat Cisse RN [facility] Work Phone: 08-19-2017 13:51-0500 Pulse (Heart Rate) 61 /min Melita Cisse RN [facility] Work Phone: Comment on above: Pattern: Regular 08-19-2017 13:51-0500 Pulse Oximetry 96 % Mihaela Rolandross [facility] Work Phone: Comment on above: Room air 08-19-2017 13:51-0500 Respiratory Rate 16 /min Melita Cisse RN [facility] Work Phone: Comment on above: Pattern: Unlabored 08-19-2017 13:51-0500 SaO2% (BldA) [Mass fraction] 96 % Melita Cisse RN [facility]; [facility] Work Phone: 08-19-2017 13:51-0500 Weight 87.54 kg Mihaela Hui [facility] Work Phone: 04-12-2017 14:26-0400 BMI (Body Mass Index) 36.25 kg/m2 Rupa Boudreaux LPN [facility] Work Phone: 04-12-2017 14:26-0400 Body Temperature 97.6 [degF] Rupa Boudreaux LPN [facility] Work Phone: 04-12-2017 14:26-0400 Body weight 88.45 kg Rupa Boudreaux LPN [facility] Work Phone: 04-12-2017 14:26-0400 BP Diastolic 62 mm[Hg] Rupa Boudreaux LPN [facility] Work Phone: Comment on above: Patient Position: Sitting; Cuff Location : Left Arm; Cuff Size: Standard 04-12-2017 14:040 BP Systolic 112 mm[Hg] Rupa Slarb 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 [facility] Work Phone: Comment on above: Patient Position: Sitting; Cuff Location : Left Arm; Cuff Size: Standard 04-12-2017 14:040 BSA (Body Surface Area) 1.88 m2 Rupa Satnamrb 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 [facility] Work Phone: 04-12-2017 14:040 Height 156.21 cm Rupa Slarb 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 [facility] Work Phone: 04-12-2017 14:-040 Pulse (Heart Rate) 54 /min Rupa Slarb 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 [facility] Work Phone: Comment on above: Pattern: Regular 04-12-2017 14:0400 Pulse Oximetry 97 % Mihaela Hui [facility] Work Phone: Comment on above: Room air 04-12-2017 14:-0400 Respiratory Rate 18 /min Rupa Satnamrb 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 [facility] Work Phone: Comment on above: Pattern: Unlabored 04-12-2017 14:-0400 SaO2% (BldA) [Mass fraction] 97 % Rupa Slarb 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 [facility]; [facility] Work Phone: 04-12-2017 14:040 Weight 88.45 kg Mihaela Hui [facility] Work Phone: 01-04-2017 14:-0400 BMI (Body Mass Index) 36.34 kg/m2 Rupa Slarb 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 [facility] Work Phone: 01-04-2017 14:23-0400 Body Temperature 97.6 [degF] Rupa Slarb 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 [facility] Work Phone: 01-04-2017 14:23-0400 Body weight 88.68 kg Rupa Slarb 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 [facility] Work Phone: 01-04-2017 14:23-0400 BP Diastolic 78 mm[Hg] Rupa Slarb 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 [facility] Work Phone: Comment on above: Patient Position: Sitting; Cuff Location : Left Arm; Cuff Size: Standard 01-04-2017 14:23-0400 BP Systolic 128 mm[Hg] Rupa Boudreaux 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 [facility] Work Phone: Comment on above: Patient Position: Sitting; Cuff Location : Left Arm; Cuff Size: Standard 01-04-2017 14:23-0400 BSA (Body Surface Area) 1.88 m2 Rupa Satnamrb 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 [facility] Work Phone: 01-04-2017 14:23-0400 Height 156.21 cm Rupa Satnamrb 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 [facility] Work Phone: 01-04-2017 14:23-0400 Pulse (Heart Rate) 68 /min Rupa Kanika 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 [facility] Work Phone: Comment on above: Pattern: Regular 01-04-2017 14:23-0400 Pulse Oximetry 98 % Mihaela Hui [facility] Work Phone: Comment on above: Room air 01-04-2017 14:23-0400 Respiratory Rate 16 /min Rupa Satnamrb 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 [facility] Work Phone: Comment on above: Pattern: Unlabored 01-04-2017 14:23-0400 SaO2% (BldA) [Mass fraction] 98 % Rupa Hayrb 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 [facility]; [facility] Work Phone: 01-04-2017 14:23-0400 Weight 88.68 kg Mihaela Hui [facility] Work Phone: 11-26-2016 [id number] BMI (Body Mass Index) 36.43 kg/m2 Rupa Slarb 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 [facility] Work Phone: 11-26-2016 10:28-040 Body Temperature 97.7 [degF] Rupa Satnamrb 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 [facility] Work Phone: 11-26-2016 10:28-0400 Body weight 88.91 kg Rupa Slarb 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 [facility] Work Phone: 11-26-2016 10:28-0400 BP Diastolic 82 mm[Hg] Rupa Slarb 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 [facility] Work Phone: Comment on above: Patient Position: Sitting; Cuff Location : Left Arm; Cuff Size: Standard 11-26-2016 10:280400 BP Systolic 136 mm[Hg] Rupa Slarb 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 [facility] Work Phone: Comment on above: Patient Position: Sitting; Cuff Location : Left Arm; Cuff Size: Standard 11-26-2016 10:040 BSA (Body Surface Area) 1.88 m2 Rupa Slarb 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 [facility] Work Phone: 11-26-2016 10:040 Height 156.21 cm Rupa Slarb 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 [facility] Work Phone: [id number] Pulse (Heart Rate) 73 /min Rupa Slarb 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 [facility] Work Phone: Comment on above: Pattern: Regular 11-26-2016 10:28-0400 Pulse Oximetry 97 % Mihaela Hui [facility] Work Phone: Comment on above: Room air 11-26-2016 10:040 Respiratory Rate 16 /min Rupa Slarb 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 [facility] Work Phone: Comment on above: Pattern: Unlabored 11-26-2016 10:28-0400 SaO2% (BldA) [Mass fraction] 97 % Ruap Slarb 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 [facility]; [facility] Work Phone: 11-26-2016 10:28-040 Weight 88.91 kg Mihaela Hui [facility] Work Phone: 10-02-2016 15:14-0400 BMI (Body Mass Index) 37.08 kg/m2 Rupa Slarb 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 [facility] Work Phone: 10-02-2016 15:14-0400 Body Temperature 98 [degF] Rupa Slarb 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 [facility] Work Phone: 10-02-2016 15:14-0400 Body weight 90.49 kg Rupa Slarb 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 [facility] Work Phone: 10-02-2016 15:14-0400 BP Diastolic 68 mm[Hg] Rupa Slarb 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 [facility] Work Phone: Comment on above: Patient Position: Sitting; Cuff Location : Left Arm; Cuff Size: Standard 10-02-2016 15:14-0400 BP Systolic 140 mm[Hg] Rupa Slarb 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 [facility] Work Phone: Comment on above: Patient Position: Sitting; Cuff Location : Left Arm; Cuff Size: Standard 10-02-2016 15:14-0400 BSA (Body Surface Area) 1.9 m2 Rupa Slarb 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 [facility] Work Phone: 10-02-2016 15:14-0400 Height 156.21 cm Rupa Slarb 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 [facility] Work Phone: 10-02-2016 15:14-0400 Pulse (Heart Rate) 84 /min Rupa Boudreaux 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 [facility] Work Phone: Comment on above: Pattern: Regular 10-02-2016 15:14-0400 Pulse Oximetry 98 % Mihaela Hui [facility] Work Phone: Comment on above: Room air 10-02-2016 15:14-0400 Respiratory Rate 18 /min Rupa Boudreaux 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 [facility] Work Phone: Comment on above: Pattern: Unlabored 10-02-2016 15:14-0400 SaO2% (BldA) [Mass fraction] 98 % Rupa Slarb 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 [facility]; [facility] Work Phone: 10-02-2016 15:14-0400 Weight 90.49 kg Mihaela Hui [facility] Work Phone: 09-05-2016 11:31-0500 BMI (Body Mass Index) 37.04 kg/m2 Rupa Hayrb 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 [facility] Work Phone: 09-05-2016 11:31-0500 Body Temperature 97.7 [degF] Rupa Satnamrb 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 [facility] Work Phone: 09-05-2016 11:31-0500 Body weight 90.38 kg Rupa Hayrb 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 [facility] Work Phone: 09-05-2016 11:31-0500 BP Diastolic 80 mm[Hg] Rupa Slarb 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 [facility] Work Phone: Comment on above: Patient Position: Sitting; Cuff Location : Left Arm; Cuff Size: Standard 09-05-2016 11:31-0500 BP Systolic 142 mm[Hg] Rupa Slarb 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 [facility] Work Phone: Comment on above: Patient Position: Sitting; Cuff Location : Left Arm; Cuff Size: Standard 09-05-2016 11:31-0500 BSA (Body Surface Area) 1.9 m2 Rupa Satnamrb 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 [facility] Work Phone: 09-05-2016 11:31-0500 Height 156.21 cm Rupa Slarb 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 [facility] Work Phone: 09-05-2016 11:31-0500 Pulse (Heart Rate) 69 /min Rupa Boudreaux 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 [facility] Work Phone: Comment on above: Pattern: Regular 09-05-2016 11:31-0500 Pulse Oximetry 95 % Mihaela Hui [facility] Work Phone: Comment on above: Room air 09-05-2016 11:31-0500 Respiratory Rate 16 /min Rupa Satnamrb 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 [facility] Work Phone: Comment on above: Pattern: Unlabored 09-05-2016 11:31-0500 SaO2% (BldA) [Mass fraction] 95 % Rupa Satnamrb 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 [facility]; [facility] Work Phone: 09-05-2016 11:31-0500 Weight 90.38 kg Mihaela Hui [facility] Work Phone: 08-21-2016 14:34-0500 BMI (Body Mass Index) 36.99 kg/m2 Rupa Slarb 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 [facility] Work Phone: 08-21-2016 14:34-0500 Body Temperature 97.2 [degF] Rupa Boudreaux 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 [facility] Work Phone: 08-21-2016 14:34-0500 Body weight 90.27 kg Rupa Boudreaux 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 [facility] Work Phone: 08-21-2016 14:34-0500 BP Diastolic 78 mm[Hg] Rupa Satnamrb 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 [facility] Work Phone: Comment on above: Patient Position: Sitting; Cuff Location : Left Arm; Cuff Size: Standard 08-21-2016 14:34-0500 BP Systolic 122 mm[Hg] Rupa Hayrb 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 [facility] Work Phone: Comment on above: Patient Position: Sitting; Cuff Location : Left Arm; Cuff Size: Standard 08-21-2016 14:34-0500 BSA (Body Surface Area) 1.9 m2 Rupa Boudreaux 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 [facility] Work Phone: 08-21-2016 14:34-0500 Height 156.21 cm Rupa Boudreaux 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 [facility] Work Phone: 08-21-2016 14:34-0500 Pulse (Heart Rate) 91 /min Rupa Boudreaux LPN [facility] Work Phone: Comment on above: Pattern: Regular 08-21-2016 14:34-0500 Pulse Oximetry 95 % Mihaela Hui [facility] Work Phone: Comment on above: Room air 08-21-2016 14:34-0500 Respiratory Rate 16 /min Rupa Boudreaux LPN [facility] Work Phone: Comment on above: Pattern: Unlabored 08-21-2016 14:34-0500 SaO2% (BldA) [Mass fraction] 95 % Rupa Satnamrb 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 [facility]; [facility] Work Phone: 08-21-2016 14:34-0500 Weight 90.27 kg Mihaela Hui [facility] Work Phone: 02-13-2016 14:26-0400 BMI (Body Mass Index) 36.25 kg/m2 Dior Sevilla CMA [facility] Work Phone: 02-13-2016 14:26-0400 Body weight 88.45 kg Dior Sevilla [facility] Work Phone: 02-13-2016 14:26-0400 BP Diastolic 68 mm[Hg] Dior Sevilla [facility] Work Phone: Comment on above: Patient Position: Sitting; Cuff Location : Left Arm; Cuff Size: Standard 02-13-2016 14:26-0400 BP Systolic 140 mm[Hg] Dior Sevilla [facility] Work Phone: Comment on above: Patient Position: Sitting; Cuff Location : Left Arm; Cuff Size: Standard 02-13-2016 14:26-0400 BSA (Body Surface Area) 1.88 m2 Dior Sevilla [facility] Work Phone: 02-13-2016 14:26-0400 Height 156.21 cm Dior Sevilla [facility] Work Phone: 02-13-2016 14:26-0400 Pulse (Heart Rate) 66 /min Dior Sevilla [facility] Work Phone: Comment on above: Pattern: Regular 02-13-2016 14:26-0400 Pulse Oximetry 96 % Mihaela Hui [facility] Work Phone: Comment on above: Room air 02-13-2016 14:26-0400 Respiratory Rate 16 /min Dior Sevilla [facility] Work Phone: Comment on above: Pattern: Unlabored 02-13-2016 14:26-0400 SaO2% (BldA) [Mass fraction] 96 % Dior Sevilla [facility]; [facility] Work Phone: 02-13-2016 14:26-0400 Weight 88.45 kg Mihaela Hui [facility] Work Phone: 02-06-2016 10:00-0400 BMI (Body Mass Index) 36.99 kg/m2 Rupa Boudreaux LPN [facility] Work Phone: 02-06-2016 10:00-0400 Body Temperature 97.9 [degF] Rupa Boudreaux 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 [facility] Work Phone: 02-06-2016 10:00-0400 Body weight 90.27 kg Rupa Boudreaux 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 [facility] Work Phone: 02-06-2016 10:00-0400 BP Diastolic 76 mm[Hg] Rupa Satnamrb 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 [facility] Work Phone: Comment on above: Patient Position: Sitting; Cuff Location : Left Arm; Cuff Size: Standard 02-06-2016 10:00-0400 BP Systolic 118 mm[Hg] Rupa Boudreaux 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 [facility] Work Phone: Comment on above: Patient Position: Sitting; Cuff Location : Left Arm; Cuff Size: Standard 02-06-2016 10:00-0400 BSA (Body Surface Area) 1.9 m2 Rupa Slarb 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 [facility] Work Phone: 02-06-2016 10:00-0400 Height 156.21 cm Rupa Boudreaux 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 [facility] Work Phone: 02-06-2016 10:00-0400 Pulse (Heart Rate) 50 /min Rupa Boudreaux 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 [facility] Work Phone: Comment on above: Pattern: Regular 02-06-2016 10:00-0400 Pulse Oximetry 98 % Mihaela Hui [facility] Work Phone: Comment on above: Room air 02-06-2016 10:00-0400 Respiratory Rate 16 /min Rupa Boudreaux 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 [facility] Work Phone: Comment on above: Pattern: Unlabored 02-06-2016 10:00-0400 SaO2% (BldA) [Mass fraction] 98 % Rupa Slarb 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 [facility]; [facility] Work Phone: 02-06-2016 10:00-0400 Weight 90.27 kg Mihaela Hui [facility] Work Phone: 01-31-2016 15:36-0400 BMI (Body Mass Index) 36.99 kg/m2 Rupa Boudreaux 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 [facility] Work Phone: 01-31-2016 15:36-0400 Body weight 90.27 kg Rupa Boudreaux 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 [facility] Work Phone: 01-31-2016 15:36-0400 BP Diastolic 78 mm[Hg] Rupa Satnamrb 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 [facility] Work Phone: Comment on above: Patient Position: Sitting; Cuff Location : Left Arm; Cuff Size: Standard 01-31-2016 15:36-0400 BP Systolic 116 mm[Hg] Rupa Hayrb 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 [facility] Work Phone: Comment on above: Patient Position: Sitting; Cuff Location : Left Arm; Cuff Size: Standard 01-31-2016 15:36-0400 BSA (Body Surface Area) 1.9 m2 Rupa Hayrb 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 [facility] Work Phone: 01-31-2016 15:36-0400 Height 156.21 cm Rupa Boudreaux 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 [facility] Work Phone: 01-31-2016 15:36-0400 Pulse (Heart Rate) 55 /min Rupa Boudreaux LPN [facility] Work Phone: Comment on above: Pattern: Regular 01-31-2016 15:36-0400 Pulse Oximetry 98 % Mihaela Hui [facility] Work Phone: Comment on above: Room air 01-31-2016 15:36-0400 Respiratory Rate 16 /min Rupa Boudreaux 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 [facility] Work Phone: Comment on above: Pattern: Unlabored 01-31-2016 15:36-0400 SaO2% (BldA) [Mass fraction] 98 % Rupa Satnamrb 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 [facility]; [facility] Work Phone: 01-31-2016 15:36-0400 Weight 90.27 kg Mihaela Hui [facility] Work Phone: 09-13-2015 13:53-0500 BMI (Body Mass Index) 36.99 kg/m2 RALPH Leon LPN [facility] Work Phone: 09-13-2015 13:53-0500 Body Temperature 97.6 [degF] RALPH Leon LPN [facility] Work Phone: Comment on above: Method: Temporal 09-13-2015 13:53-0500 Body weight 90.27 kg RALPH Leon LPN [facility] Work Phone: 09-13-2015 13:53-0500 BP Diastolic 74 mm[Hg] RALPH Leon LPN [facility] [...] 13:53-0500 Pulse Oximetry 97 % Mihaela Hui [facility] Work Phone: Comment on above: Room air 09-13-2015 13:53-0500 Respiratory Rate 20 /min RALPH Leon LPN [facility] Work Phone: Comment on above: Pattern: Unlabored 09-13-2015 13:53-0500 SaO2% (BldA) [Mass fraction] 97 % RALPH Leon LPN [facility]; [facility] Work Phone: 09-13-2015 13:53-0500 Weight 90.27 kg Miheala Hui [facility] Work Phone: 03-14-2015 13:25-0400 BMI (Body Mass Index) 29.94 kg/m2 RALPH Leon LPN [facility] Work Phone: 03-14-2015 13:25-0400 Body Temperature 97.7 [degF] RALPH Leon LPN [facility] Work Phone: Comment on above: Method: Temporal 03-14-2015 13:25-040 Body weight 88 kg RALPH Leon TASIA [facility] Work Phone: 03-14-2015 13:25-0400 BP Diastolic 76 mm[Hg] RALPH Leon TASIA [facility] Work Phone: Comment on above: Patient Position: Sitting; Cuff Location : Left Arm; Cuff Size: Large 03-14-2015 13:25-0400 BP Systolic 124 mm[Hg] RALPH Leon TASIA [facility] Work Phone: Comment on above: Patient Position: Sitting; Cuff Location : Left Arm; Cuff Size: Large 03-14-2015 13:25-0400 BSA (Body Surface Area) 2.01 m2 RALPH Leon TASIA [facility] Work Phone: 03-14-2015 13:25-0400 Height 171.45 cm RALPH Leon LPN [facility] Work Phone: 03-14-2015 13:25-0400 Pulse (Heart Rate) 60 /min RALPH Leon TAISA [facility] Work Phone: Comment on above: Pattern: Regular 03-14-2015 13:25-0400 Pulse Oximetry 98 % Mihaela Hui [facility] Work Phone: Comment on above: Room air 03-14-2015 13:25-0400 Respiratory Rate 18 /min RALPH Leon LPN [facility] Work Phone: Comment on above: Pattern: Unlabored 03-14-2015 13:25-0400 SaO2% (BldA) [Mass fraction] 98 % RALPH Leon LPN [facility]; [facility] Work Phone: 03-14-2015 13:25-0400 Weight 88 kg Mihaela Hui [facility] Work Phone: 02-23-2015 11:17040 BMI (Body Mass Index) 29.96 kg/m2 Rupa Boudreaux LPN [facility] Work Phone: 02-23-2015 11:17-040 Body Temperature 97.7 [degF] Rupa Boudreaux 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 [facility] Work Phone: 02-23-2015 11:17-040 Body weight 88.06 kg Rupa Boudreaux 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 [facility] Work Phone: 02-23-2015 11:17-0400 BP Diastolic 78 mm[Hg] Rupa Boudreaux 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 [facility] Work Phone: Comment on above: Patient Position: Sitting; Cuff Location : Left Arm; Cuff Size: Standard 02-23-2015 11:17-0400 BP Systolic 126 mm[Hg] Rupa Boudreaux 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 [facility] Work Phone: Comment on above: Patient Position: Sitting; Cuff Location : Left Arm; Cuff Size: Standard 02-23-2015 11:170400 BSA (Body Surface Area) 2.01 m2 Rupa Boudreaux LPN [facility] Work Phone: 02-23-2015 11:170400 Height 171.45 cm Rupa Boudreaux LPN [facility] Work Phone: 02-23-2015 11:17-0400 Pulse (Heart Rate) 80 /min Rupa Boudreaux LPN [facility] Work Phone: Comment on above: Pattern: Regular 02-23-2015 11:17-0400 Pulse Oximetry 98 % Mihaela Hui [facility] Work Phone: Comment on above: Room air 02-23-2015 11:17-0400 Respiratory Rate 18 /min Rupa Boudreaux LPN [facility] Work Phone: Comment on above: Pattern: Unlabored 02-23-2015 11:17-0400 SaO2% (BldA) [Mass fraction] 98 % Rupa Boudreaux 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 [facility]; [facility] Work Phone: 02-23-2015 11:17-0400 Weight 88.06 kg Mihaela Hui [facility] Work Phone: 02-14-2015 13:45-0400 BMI (Body Mass Index) 29.94 kg/m2 RALPH Leon TASIA [facility] Work Phone: 02-14-2015 13:45-0400 Body Temperature 97 [degF] RALPH Leon TASIA [facility] [...] Phone: 02-14-2015 13:45-0400 Height 171.45 cm RALPH Leon TASIA [facility] Work Phone: 02-14-2015 13:45-0400 Pulse (Heart Rate) 68 /min RALPH Leon TASIA [facility] Work Phone: Comment on above: Pattern: Regular 02-14-2015 13:45-0400 Pulse Oximetry 98 % Mihaela Hui [facility] Work Phone: Comment on above: Room air 02-14-2015 13:45-0400 Respiratory Rate 18 /min RALPH Leon TASIA [facility] Work Phone: Comment on above: Pattern: Unlabored 02-14-2015 13:45-0400 SaO2% (BldA) [Mass fraction] 98 % RALPH Leon LPN [facility]; [facility] Work Phone: 02-14-2015 13:45-0400 Weight 88 kg Mihaela Hui [facility] Work Phone: 01-17-2015 13:28-0400 BMI [...] 01-17-2015 13:28-0400 Pulse Oximetry 95 % Mihaela Hui [facility] Work Phone: Comment on above: Room air 01-17-2015 13:28-0400 Respiratory Rate 16 /min Melita Cisse RN [facility] Work Phone: Comment on above: Pattern: Unlabored 01-17-2015 13:28-0400 SaO2% (BldA) [Mass fraction] 95 % Melita Cisse RN [facility]; [facility] Work Phone: 01-17-2015 13:28-0400 Weight 88.36 kg Mihaela Hui [facility] Work Phone: 12-28-2013 14:37-0400 BMI [...] 12-28-2013 14:37-0400 Weight 88.45 kg Mihaela Hui [facility] Work Phone: 05-20-2013 10:21-0500 BMI (Body Mass Index) 30.58 kg/m2 Bailee Mckeon [facility] Work Phone: 05-20-2013 10:21-0500 Body Temperature 97.8 [degF] Bailee Mckeon [facility] Work Phone: Comment on above: Method: Tympanic 05-20-2013 10:21-0500 Body weight 89.9 kg Bailee Mckeon [facility] Work Phone: 05-20-2013 10:21-0500 BP Diastolic 68 mm[Hg] Bailee Mckeon [facility] Work Phone: Comment on above: Patient Position: Sitting; Cuff Location : Left Arm; Cuff Size: Standard 05-20-2013 10:21-0500 BP Systolic 120 mm[Hg] Bailee Mckeon [facility] Work Phone: Comment on above: Patient Position: Sitting; Cuff Location : Left Arm; Cuff Size: Standard 05-20-2013 10:21-0500 BSA (Body Surface Area) 2.03 m2 Bailee Mckeon [facility] Work Phone: 05-20-2013 10:21-0500 Height 171.45 cm Bailee Mckeon [facility] Work Phone: 05-20-2013 10:21-0500 Pulse (Heart Rate) 82 /min Bailee Mckeon [facility] Work Phone: Comment on above: Pattern: Regular 05-20-2013 10:21-0500 Pulse Oximetry 97 % Mihaela Hui [facility] Work Phone: Comment on above: Room air 05-20-2013 10:21-0500 Respiratory Rate 18 /min Bailee Mckeon [facility] Work Phone: Comment on above: Pattern: Unlabored 05-20-2013 10:21-0500 SaO2% (BldA) [Mass fraction] 97 % Bailee Mckeon [facility]; [facility] Work Phone: 05-20-2013 10:21-0500 Weight 89.9 kg Mihaela Hui [facility] Work Phone: 04-21-2013 09:55-0400 BMI (Body Mass Index) 30.58 kg/m2 Bailee Mckeon [facility] Work Phone: 04-21-2013 09:55-0400 Body Temperature 98.2 [degF] Bailee Mckeon [facility] Work Phone: Comment on above: Method: Oral 04-21-2013 09:55-0400 Body weight 89.9 kg Bailee Mckeon [facility] Work Phone: 04-21-2013 09:55-0400 BP Diastolic 62 mm[Hg] Bailee Mckeon [facility] Work Phone: Comment on above: Patient Position: Sitting; Cuff Location : Left Arm; Cuff Size: Standard 04-21-2013 09:55-0400 BP Systolic 120 mm[Hg] Bailee Mckeon [facility] Work Phone: Comment on above: Patient Position: Sitting; Cuff Location : Left Arm; Cuff Size: Standard 04-21-2013 09:55-0400 BSA (Body Surface Area) 2.03 m2 Bailee Mckeon [facility] Work Phone: 04-21-2013 09:55-0400 Height 171.45 cm Bailee Mckeon [facility] Work Phone: 04-21-2013 09:55-0400 Pulse (Heart Rate) 56 /min Bailee Mckeon [facility] Work Phone: Comment on above: Pattern: Regular 04-21-2013 09:55-0400 Pulse Oximetry 98 % Mihaela Hui [facility] Work Phone: Comment on above: Room air 04-21-2013 09:55-0400 Respiratory Rate 18 /min Bailee Mckeon [facility] Work Phone: Comment on above: Pattern: Unlabored 04-21-2013 09:55-0400 SaO2% (BldA) [Mass fraction] 98 % Bailee Mckeon [facility]; [facility] Work Phone: 04-21-2013 09:55-0400 Weight 89.9 kg Mihaela Hui [facility] Work Phone: 04-21-2013 09:38-0400 BMI [...] 04-21-2013 09:38-0400 Weight 87.09 kg Mihaela Hui [facility] Work Phone: 10-23-2012 09:27-0400 BMI (Body Mass Index) 29.63 kg/m2 RALPH Leon LPN [facility] Work Phone: 10-23-2012 09:27-0400 Body Temperature 98.1 [degF] RALPH Leon LPN [facility] Work Phone: Comment on above: Method: Oral 10-23-2012 09:27-0400 Body weight 87.09 kg RALPH Leon LPN [facility] Work Phone: 10-23-2012 09:27-0400 BP Diastolic 78 mm[Hg] RALPH Leon LPN [facility] Work Phone: Comment on above: Patient Position: Sitting; Cuff Location : Left Arm; Cuff Size: Standard 10-23-2012 09:27-0400 BP Systolic 118 mm[Hg] RALPH Leon LPN [facility] Work Phone: Comment on above: Patient Position: Sitting; Cuff Location : Left Arm; Cuff Size: Standard 10-23-2012 09:27-0400 BSA (Body Surface Area) 2 m2 RALPH Leon LPN [facility] Work Phone: 10-23-2012 09:27-0400 Height [...] Unlabored 10-23-2012 09:27-0400 Weight 87.09 kg Mihaela Loweross [facility] Work Phone: 10-14-2012 13:38-0400 BMI (Body Mass Index) 29.7 kg/m2 Mihaela [facility] Work Phone: 10-14-2012 13:38-0400 Body Temperature 98.4 [degF] [facility] Work Phone: Comment on above: Method: Oral 10-14-2012 13:38-0400 Body [facility] 87.32 [facility] Work Phone: 10-14-2012 13:38-0400 BP Diastolic 78 mm[Hg] [facility] Work [facility]: Comment on above: Patient Position: Sitting; Cuff Location : Left Arm; Cuff Size: Standard 10-14-2012 13:38-0400 BP Systolic 124 mm[Hg] Mihaela [facility] Work Phone: Comment on above: Patient Position: Sitting; Cuff Location : Left Arm; Cuff Size: Standard 10-14-2012 13:38-0400 BSA (Body Surface Area) 2 m2 [facility] Work Phone: 10-14-2012 13:38-0400 Height 171.[address] [facility] Work Phone: 10-14-2012 13:38-0400 Pulse (Heart Rate) 60 /min Mihaela Hui [facility] Work Phone: Comment on above: Pattern: Regular 10-14-2012 13:38-0400 Pulse Oximetry 98 % Mihaela Hui [facility] Work Phone: Comment on above: Room air 10-14-2012 13:38-0400 SaO2% (BldA) [Mass fraction] 98 % Mihaela Hui SENIOR HEALTH EDUCATOR Work Phone: [facility]; [facility] Work Phone: 10-14-2012 13:38-0400 Weight 87.32 kg Mihaela Hui [facility] Work Phone: 05-01-2012 08:31-0400 BMI (Body Mass Index) 29.7 kg/m2 Chloe Kelsey LPN [facility] Work Phone: 05-01-2012 08:31-0400 Body Temperature 96.7 [degF] Chloe Laure DOZIER [facility] Work Phone: Comment on above: Method: Tympanic 05-01-2012 08:31-0400 Body weight 87.32 kg Chloeivanna Kelsey TASIA [facility] Work Phone: 05-01-2012 08:31-0400 BP Diastolic 78 mm[Hg] Chloe Ashrafzti TASIA [facility] Work Phone: Comment on above: Patient Position: Sitting; Cuff Location : Left Arm; Cuff Size: Standard 05-01-2012 08:31-0400 BP Systolic 130 mm[Hg] Chloe Ashrafzti 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 [facility] Work Phone: Comment on above: Patient Position: Sitting; Cuff Location : Left Arm; Cuff Size: Standard 05-01-2012 08:31-0400 BSA (Body Surface Area) 2 m2 Chloe Ashrafzmarin DOZIER [facility] Work Phone: 05-01-2012 08:31-0400 [...] 05-01-2012 08:31-0400 Weight 87.32 kg Mihaela Hui [facility] Work Phone: 03-11-2012 09:31-0400 BMI (Body Mass Index) 29.7 kg/m2 Mihaela Hui [facility] Work Phone: 03-11-2012 09:31-0400 Body Temperature 98.8 [degF] Mihaela Hui [facility] Work Phone: Comment on above: Method: Oral 03-11-2012 09:31-0400 Body weight 87.32 kg iMhaela Hui [facility] Work Phone: 03-11-2012 09:31-0400 BP Diastolic 80 mm[Hg] Mihaela Hui [facility] Work Phone: Comment on above: Patient Position: Sitting; Cuff Location : Left Arm; Cuff Size: Standard 03-11-2012 09:31-0400 BP Systolic 140 mm[Hg] Mihaela Hui [facility] Work Phone: Comment on above: Patient Position: Sitting; Cuff Location : Left Arm; Cuff Size: Standard 03-11-2012 09:31-0400 BSA (Body Surface Area) 2 m2 Mihaela Hui [facility] Work Phone: 03-11-2012 09:31-0400 Height 171.45 cm Mihaela Hui [facility] Work Phone: 03-11-2012 09:31-0400 Pulse (Heart Rate) 78 /min Mihaela Loweross [facility] Work Phone: Comment on above: Pattern: Regular 03-11-2012 09:31-0400 Respiratory Rate 17 /min Mihaela Hui [facility] Work Phone: 03-11-2012 09:31-0400 Weight 87.32 kg Mihaela Hui [facility] Work Phone: 02-07-2012 11:01-0400 BMI (Body Mass Index) 29.47 kg/m2 RALPH Leon TASIA [facility] Work Phone: 02-07-2012 11:01-0400 Body Temperature 97.9 [degF] RALPH Leon LPN [facility] Work Phone: Comment on above: Method: Oral 02-07-2012 11:01-0400 Body weight 86.64 kg RALPH Leon LPN [facility] Work Phone: 02-07-2012 11:01-0400 BP Diastolic 74 mm[Hg] RALPH Leon TASIA [facility] Work Phone: Comment on above: Patient Position: Sitting; Cuff Location : Left Arm; Cuff Size: Standard 02-07-2012 11:01-0400 BP Systolic 132 mm[Hg] RALPH Leon LPN [facility] Work Phone: Comment on above: Patient Position: Sitting; Cuff Location : Left Arm; Cuff Size: Standard 02-07-2012 11:01-0400 BSA (Body Surface Area) 1.99 m2 RALPH Leon LPN [facility] Work Phone: 02-07-2012 11:01-0400 Height 171.45 cm RALPH Leon TASIA [facility] Work Phone: 02-07-2012 11:01-0400 Pulse (Heart Rate) 58 /min RALPH Leon LPN [facility] Work Phone: Comment on above: Pattern: Regular 02-07-2012 11:01-0400 Respiratory Rate 20 /min RALPH Leon LPN [facility] Work Phone: Comment on above: Pattern: Unlabored 02-07-2012 11:01-0400 Weight 86.64 kg Mihaela Hui [facility] Work Phone: 01-15-2012 15:28-0400 BMI (Body Mass Index) 27.66 kg/m2 Chloe Kelsey LPN [facility] Work Phone: 01-15-2012 15:28-0400 Body weight 86.18 kg Chloe Kelsey LPN [facility] Work Phone: 01-15-2012 15:28-0400 BP Diastolic 72 mm[Hg] Chloe Bruceti 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 [facility] Work Phone: Comment on above: Patient Position: Sitting; Cuff Location : Left Arm; Cuff Size: Standard 01-15-2012 15:28-0400 BP Systolic 110 mm[Hg] Chloe Ashrafzti 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 [facility] Work Phone: Comment on above: Patient Position: Sitting; Cuff Location : Left Arm; Cuff Size: Standard 01-15-2012 15:28-0400 BSA (Body Surface Area) 2.03 m2 Chloe Bruceti 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 [facility] Work Phone: 01-15-2012 15:28-0400 Height 176.53 cm Chloe Ashrafzti 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 [facility] Work Phone: 01-15-2012 15:28-0400 Pulse (Heart Rate) 68 /min Chloe Ashrafzti 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 [facility] Work Phone: Comment on above: Pattern: Regular 01-15-2012 15:28-0400 Respiratory Rate 16 /min Chloe Kelsey LPN [facility] Work Phone: Comment on above: Pattern: Unlabored 01-15-2012 15:28-0400 Weight 86.18 kg Mihaela Hui [facility] Work Phone: Encounters Encounter Date Encounter Type Care Provider Facility Start: 06-11-2025 ambulatory [facility] ty:[facility] Start: 05-10-2025 End: 05-10-2025 ambulatory [facility] Facility:[facility] Start: 04-14-2025 End: 04-14-2025 ambulatory Lilian Manjarrez Facility:[facility] Start: 03-29-2025 End: 03-29-2025 Patient encounter procedure Lilian HUDDLESTON -[facility] Work Phone: Start: 03-29-2025 End: 03-29-[address] Bronson Bynum MD Work Phone: [facility] Start: 02-03-2025 End: 02-03-[address] Bronson Bynum MD Work Phone: -Laboratory Specimen Start: 02-03-2025 End: 02-03-2025 Patient encounter procedure Adriana HUDDLESTON -Laboratory Specimen Work Phone: Start: 02-03-2025 End: 02-03-2025 ambulatory Bronson Bynum Facility:[facility] Start: 02-01-2025 End: 02-01-2025 Patient encounter procedure Adriana HUDDLESTON -[facility] Work Phone: Start: 02-01-2025 End: 02-01-[address] [facility] Start: 01-27-2025 ambulatory Bronson Abrams ty:[facility] Start: 01-20-2025 End: 01-20-[address] Bronson Bynum MD -[facility] Work Phone: Start: 01-20-2025 End: 01-20-[address] Bronson Bynum MD Work Phone: -[facility] Start: 01-20-2025 End: 01-20-2025 ambulatory Bronson Bynum Facility:[facility] Start: 01-08-2025 ambulatory Francesco Falk Facility:[facility] Start: 01-08-2025 Non-patient / Non-visit Dr. Francesco Falk MD -[facility] Start: 01-08-2025 End: 01-08-[address] Bronson Bynum MD Work Phone: -[facility] Start: 01-08-2025 End: 01-08-[address] Bronson Bynum MD -[facility] Work Phone: Start: 01-08-2025 End: 01-08-2025 ambulatory Bronson Bynum Facility:[facility] Start: 12-18-2024 End: 12-18-[address] Bronson Bynum MD Work Phone: [facility] Work Phone: Start: 12-18-2024 End: 12-18-[address] Tyler Johnson MD -Laboratory Specimen Work Phone: Start: 12-18-2024 End: 12-18-2024 ambulatory Bronson Bynum Facility:[facility] Start: 11-30-2024 End: 11-30-[address] Bronson Bynum MD Work Phone: [facility] Work Phone: Start: 11-30-2024 End: 11-30-[address] Bronson Bynum MD -Laboratory Specimen Work Phone: Start: 11-30-2024 End: 11-30-2024 ambulatory Bronson Bynum Facility:[facility] Start: 11-27-2024 End: 11-27-[address] Bronson Bynum MD Work Phone: [facility] Work Phone: Start: 11-27-2024 End: 11-27-[address] Bronson Bynum MD -Laboratory [facility] Start: 11-27-2024 End: 11-27-[address] Bronson Bynum MD -[facility] Work Phone: Start: 11-27-2024 End: 11-27-[address] Bronson Bynum MD Work Phone: [facility] [facility] Work Phone: Start: 11-27-2024 End: 11-27-2024 ambulatory Bronson Bynum Facility:[facility] Start: 09-16-2024 End: 09-16-[address] Bornson Bynum MD [facility] Work Phone: Start: 09-16-2024 End: 09-16-2024 ambulatory Bronson Bynum Facility:[facility] Start: 06-17-2024 End: 06-17-2024 ambulatory Bronson Bynum Facility:[facility] Start: 06-17-2024 End: 06-17-2024 ambulatory Bronson Bynum Facility:[facility] Start: 06-05-2024 End: 06-05-2024 ambulatory BRONSON BYNUM MD Facility:[facility] Start: 06-05-2024 End: 06-05-[address] TYLER JOHNSON MD [facility] Start: 06-03-2024 End: 06-03-2024 ambulatory Bronson Bynum Facility:[facility] Start: 03-29-2024 End: 03-29-2024 Emergency department patient visit BRONSON BYNUM MD Facility:[facility] Start: 01-09-2024 End: 01-09-2024 Emergency department patient visit DR CESAR BELLA MD [facility] Start: 09-04-2023 End: 09-26-2023 ambulatory BRONSON BYNUM MD Facility:[facility] Start: 09-04-2023 End: 09-26-2023 Physical therapy management BRONSON BYNUM MD [facility] Start: 08-28-2023 End: 08-28-[address] Bronson Bynum Work Phone: [facility] Work Phone: Start: 08-28-2023 End: 08-28-[address] Bronson Bynum Work Phone: [facility] Work Phone: Start: 08-14-2023 End: 08-14-[address] Bronson Bynum Work Phone: [facility] Start: 05-20-2023 End: 05-20-[address] Bronson Bynum Work Phone: [facility] Work Phone: Start: 05-20-2023 End: 05-20-[address] Bronson Bynum Work Phone: [facility] Work Phone: Start: 04-22-2023 End: 04-22-2023 ambulatory MIHAELA HUI [facility] Facility:[facility] Start: 03-28-2023 End: 03-28-[address] Bronson Bynum Work Phone: [facility] Work Phone: Start: 11-21-2022 End: 11-21-[address] Bronson Bynum Work Phone: [facility] Work Phone: Start: 11-21-2022 End: 11-21-[address] Bronson Bynum Work Phone: [facility] [place] Start: 08-27-2022 End: 08-27-[address] Bronson Bynum Work Phone: [facility] Start: 11-08-2021 End: 11-08-2021 Office outpatient visit 10 minutes Mihaela Hui Work Phone: [facility] Start: 09-06-2021 End: 09-06-2021 Office outpatient visit 25 minutes Mihaela Hui SENIOR HEALTH EDUCATOR Work Phone: [facility] Start: 09-06-2021 Mihaela Hui SENIOR HEALTH EDUCATOR Work Phone: [facility] Start: 08-22-2021 End: 08-22-2021 Office outpatient visit 15 minutes Mihaela Hui SENIOR HEALTH EDUCATOR Work Phone: [facility] Start: 03-01-2021 End: 03-01-2021 Office outpatient visit 15 minutes Mihaela Hui SENIOR HEALTH EDUCATOR Work Phone: [facility] Start: 08-31-2020 End: 08-31-2020 Office outpatient visit 15 minutes Mihaela Rolandross [facility] Start: 06-06-2020 End: 06-06-2020 Office outpatient visit 10 minutes Mihaela Hui [facility] Start: 06-06-2020 Review Mihaela Hui [facility] Start: 04-18-2020 End: 04-18-2020 Annotation/Addendum Mihaela Rolandross [facility] Start: 04-18-2020 End: 04-18-2020 Mihaela Hui SENIOR HEALTH EDUCATOR Work Phone: [facility] Start: 03-16-2020 End: 03-16-2020 Office outpatient visit 25 minutes Mihaela Rolandross [facility] Start: 03-16-2020 Review Mihaela Hui [facility] Start: 09-14-2019 End: 09-14-2019 Office outpatient visit 25 minutes Mihaela Asuncionross [facility] Start: 08-18-2019 End: 08-18-2019 Office outpatient visit 15 minutes Mihaela Rolandross [facility] Start: 06-08-2019 End: 06-08-2019 Annotation/Addendum Mihaela Asuncionross [facility] Start: 06-08-2019 End: 06-08-2019 Mihaela Hui SENIOR HEALTH EDUCATOR Work Phone: [facility] Start: 06-08-2019 End: 06-08-2019 Office outpatient visit 15 minutes Mihaela Hui [facility] Start: 04-14-2019 End: 04-14-2019 Annotation/Addendum Mihaela Hui [facility] Start: 04-14-2019 End: 04-14-2019 Mihaela Hui SENIOR HEALTH EDUCATOR Work Phone: [facility] Start: 10-07-2018 End: 10-07-2018 Phone Encounter Mihaela Hui [facility] Start: 10-07-2018 End: 10-07-2018 Mihaela Hui SENIOR HEALTH EDUCATOR Work Phone: [facility] Start: 09-15-2018 End: 09-15-2018 Office outpatient visit 25 minutes Mihaela Hui [facility] Start: 09-15-2018 Patient encounter procedure Mihaela Hui [facility] Start: 09-14-2018 End: 09-14-2018 Annotation/Addendum Mihaela Hui [facility] Start: 09-14-2018 End: 09-14-2018 Mihaela Hui SENIOR HEALTH EDUCATOR Work Phone: [facility] Start: 09-12-2018 End: 09-12-2018 Annotation/Addendum Mihaela Hui [facility] Start: 09-12-2018 End: 09-12-2018 Mihaela Hui SENIOR HEALTH EDUCATOR Work Phone: [facility] Start: 09-12-2018 End: 09-12-2018 Annotation/Addendum Mihaela Hui [facility] Start: 09-12-2018 End: 09-12-2018 Mihaela Hui SENIOR HEALTH EDUCATOR Work Phone: [facility] Start: 09-12-2018 End: 09-12-2018 Office outpatient visit 25 minutes Mihaela Hui [facility] Start: 07-09-2018 End: 07-09-2018 Office outpatient visit 25 minutes Mihaela Hui [facility] Start: 04-28-2018 End: 04-28-2018 Annotation/Addendum Mihaela Hui [facility] Start: 04-28-2018 End: 04-28-2018 Mihaela Hui SENIOR HEALTH EDUCATOR Work Phone: [facility] Start: 03-19-2018 End: 03-19-2018 Annotation/Addendum Mihaela Hui [facility] Start: 03-19-2018 End: 03-19-2018 Mihaela Hui SENIOR HEALTH EDUCATOR Work Phone: [facility] Start: 10-21-2017 End: 10-21-2017 Patient encounter procedure Rica Farris SENIOR HEALTH EDUCATOR Work Phone: [facility] Start: 10-21-2017 End: 10-21-2017 Periodic preventive med est patient 65yrs& older Mihaela Hui [facility] Start: 10-18-2017 End: 10-18-2017 Office outpatient visit 15 minutes Mihaela Lowedidierross [facility] Start: 08-19-2017 End: 08-19-2017 Office outpatient visit 25 minutes Mihaela Lowedidierross [facility] Start: 05-24-2017 End: 05-24-2017 Annotation/Addendum Mihaela Rolandross [facility] Start: 05-24-2017 End: 05-24-2017 Mihaela Rolandross SENIOR HEALTH EDUCATOR Work Phone: [facility] Start: 04-12-2017 End: 04-12-2017 Office outpatient visit 15 minutes Mihaela Hui [facility] Start: 01-04-2017 End: 01-04-2017 Office outpatient visit 15 minutes Mihaela Hui [facility] Start: 11-26-2016 End: 11-26-2016 Office outpatient visit 15 minutes Mihaela Rolandross [facility] Start: 11-16-2016 End: 11-16-2016 Lab Order Mihaela Rolandross [facility] Start: 11-16-2016 End: 11-16-2016 Mihaela Rolandross SENIOR HEALTH EDUCATOR Work Phone: [facility] Start: 10-02-2016 End: 10-02-2016 Office outpatient visit 25 minutes Mihaela Lowedidierross [facility] Start: 09-05-2016 End: 09-05-2016 Office outpatient visit 25 minutes Mihaela Asuncionross [facility] Start: 08-21-2016 End: 08-21-2016 Office outpatient visit 25 minutes Mihaela Rolandross [facility] Start: 08-14-2016 End: 08-14-2016 Lab Order Mihaela Rolandross [facility] Start: 08-14-2016 End: 08-14-2016 Mihaela Rolandross ALFARO Work Phone: [facility] Start: 02-17-2016 End: 02-17-2016 Annotation/Addendum Mihaela Rolandross [facility] Start: 02-17-2016 End: 02-17-2016 Mihaela Rolandross SENIOR HEALTH EDUCATOR Work Phone: [facility] Start: 02-13-2016 End: 02-13-2016 Office outpatient visit 15 minutes Mihaela Rolandross [facility] Start: 02-06-2016 End: 02-06-2016 Office outpatient visit 15 minutes Mihaela Rolandross [facility] Start: 01-31-2016 End: 01-31-2016 Office outpatient visit 10 minutes Mihaela Chrissydidierross [facility] Start: 09-13-2015 End: 09-13-2015 Office outpatient visit 15 minutes Mihaela Rolandross [facility] Start: 09-13-2015 End: 09-13-2015 Patient encounter procedure Rica Farris SENIOR HEALTH EDUCATOR Work Phone: [facility] Start: 03-16-2015 End: 03-16-2015 Historical Summary [facility]ela [facility] Start: 03-16-2015 End: 03-16-2015 Mihaela Chrissychava SENIOR HEALTH EDUCATOR Work Phone: [facility] Start: 03-14-2015 End: 03-14-2015 Office outpatient visit 25 minutes [facility] Start: 02-23-2015 End: 02-23-2015 Office outpatient visit 15 minutes Mihaela Rolandross [facility] Start: 02-15-2015 End: 02-15-2015 Periodic preventive med est patient 18-39 yrs Mihaela Lowechava [facility] Start: 02-14-2015 End: 02-14-2015 Prescription Refill Mihaela Rolandross [facility] Start: 02-14-2015 End: 02-14-2015 Mihaela Hui SENIOR HEALTH EDUCATOR Work Phone: [facility] Start: 02-14-2015 End: 02-14-2015 Periodic preventive med est patient 18-39 yrs Mihaela Rolandross [facility] Start: 01-17-2015 End: 01-17-2015 Office outpatient visit 25 minutes Mihaela Rolandross [facility] Start: 12-28-2013 End: 12-28-2013 Patient encounter procedure Mihaela Hui [facility] Start: 12-28-2013 End: 12-28-2013 Mihaela Chrissydidierross ALFARO Work Phone: [facility] Start: 05-20-2013 End: 05-21-2013 Patient encounter procedure Mihaela Hui [facility] Start: 05-20-2013 End: 05-21-2013 Mihaela Chrissydidierross ALFARO Work Phone: [facility] Start: 04-21-2013 End: 04-21-2013 Patient encounter procedure Mihaela Hui [facility] Start: 04-21-2013 End: 04-21-2013 Mihaela Hui SENIOR HEALTH EDUCATOR Work Phone: [facility] Start: 03-17-2013 End: 03-17-2013 Phone Encounter Mihaela Hui [facility] Start: 03-17-2013 End: 03-17-2013 Mihaela Hui SENIOR HEALTH EDUCATOR Work Phone: [facility] Start: 02-02-2013 End: 02-02-2013 Refill Request Mihaela Hui [facility] Start: 02-02-2013 End: 02-02-2013 Mihaela Hui SENIOR HEALTH EDUCATOR Work Phone: [facility] Start: 11-18-2012 End: 11-18-2012 Prescription Refill Mihaela Hui [facility] Start: 11-18-2012 End: 11-18-2012 Mihaela Hui SENIOR HEALTH EDUCATOR Work Phone: [facility] Start: 10-23-2012 End: 10-23-2012 Patient encounter procedure Mihaela Hui [facility] Start: 10-23-2012 End: 10-23-2012 Mihaela Hui SENIOR HEALTH EDUCATOR Work Phone: [facility] Start: 10-14-2012 End: 10-14-2012 Office outpatient visit 25 minutes Mihaela Hui [facility] Start: 05-01-2012 End: 05-02-2012 Patient encounter procedure Mihaela Hui [facility] Start: 05-01-2012 End: 05-02-2012 Mihaela Hui SENIOR HEALTH EDUCATOR Work Phone: [facility] Start: 03-11-2012 End: 03-11-2012 Office outpatient visit 25 minutes Mihaela Hui [facility] Start: 02-07-2012 End: 02-07-2012 Phone Encounter Mihaela Hui [facility] Start: 02-07-2012 End: 02-07-2012 Mihaela Hui SENIOR HEALTH EDUCATOR Work Phone: [facility] Start: 02-07-2012 End: 02-07-2012 Patient encounter procedure Mihaela Hui [facility] Start: 02-07-2012 End: 02-07-2012 Mihaela Ciesa SENIOR HEALTH EDUCATOR Work Phone: [facility] Start: 01-25-2012 End: 02-07-2012 Patient encounter procedure Mihaela Hui [facility] Start: 01-25-2012 End: 02-07-2012 Mihaela Hui SENIOR HEALTH EDUCATOR Work Phone: [facility] Start: 01-15-2012 End: 01-15-2012 Patient encounter procedure Mihaela Hui [facility] Start: 01-15-2012 End: 01-15-2012 Mihaela Hui SENIOR HEALTH EDUCATOR Work Phone: [facility] Patient encounter procedure Tammy Toth 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 [facility] Work Phone: Patient encounter procedure Ryann Sewell DO Work Phone: [facility] Work Phone: Patient encounter procedure William Lara 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 [facility] Work Phone: Patient encounter procedure Roxane Kinney DIAMOND DIE DRILLER [facility]; [facility] Work Phone: Procedures Date Procedure Procedure Detail Performing Clinician Start: 01-08-2025 Radionuclide imaging of perfusion of myocardium under exercise stress Dr. Bronson Bynum MD Work Phone: Start: 06-05-[address] TYLER JOHNSON MD Start: 08-14-2023 Plain X-ray of shoulder Dr. Bronson Bynum Work Phone: Start: 05-20-[address] Bronson Bynum Work Phone: Start: 04-11-2022 End: 04-12-2022 Procedure Note: See Note; NOTES: [facility] [place] [address] [place] [address] OFFICE VISIT Date of Service: 04/11/22 MR#: [id number] Acct: [id number] Name: DAVID HUBBARD Rep #: [id number] : 1945 Provider: Dr. 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 Bronosn Bynum MD) Allergy-induced asthma Arthritis Cataracts, bilateral [...] distress Orientation: alert, awake and oriented x3 [facility] Head: normal to inspection, normocephalic and atraumatic [...] Stable on Prilosec. Continue current management. 04/12/22 [id number] <Electronically signed by Bronson Bynum MD> Date Bronson Bynum MD Cosigner Signature: Date (if applicable) CC: Rica Farris [facility] Work Phone: Start: 05-16-2021 End: 05-17-2021 Comments: See Note; NOTES: [facility] Imaging Services [address] [place] [address] Dexa Bone Density Study MR#: [id number] Acct: [id number] Name: DAVID HUBBARD Rep #: [id number] : 1945 F 75 From: Emory canseco MD PCP: KARO Sneed Status: [facility] Study: Dexa Bone Density Study Date of Exam: 05/16/21 Exam# [id number] Ordering Dr: Mihaela Hui NP STUDY: DUAL [...] , Service support , CC: KARO Hui Loss Prevention Agent: Signed Mihaela Hui SENIOR HEALTH EDUCATOR Work Phone: Start: 05-16-2021 End: 05-16-2021 Comments: See Note; NOTES: [facility] Imaging Services [address] [place] [address]25 SCRN MAMM (CAD)W/MICH BILAT MR#: [id number] Acct: [id number] Name: DAVID HUBBARD Rep #: [id number] : 1945 F 75 From: Emory canseco MD PCP: KARO Sneed Status: [facility] Study: SCRN MAMM (CAD)W/MICH BILAT Date of Exam: 09/04 Exam# [id number] Ordering Dr: Mihaela Hui NP MAMMOGRAPHY - [...] delay biopsy of a clinically suspicious abnormality. [id number] Electronically Signed: Emory Sheppard MD at 14:15 EDT , Service support , CC: HAIR SALON MANAGER-C Mihaela Hui Loss Prevention Agent: Signed Mihaela Hui [facility] Work Phone: Start: 05-11-2020 End: 05-12-2020 SCREEN MAMM (CAD) W/MICH BILAT Comments: See Note; NOT ES: [facility] Imaging Services [address] [place] [address] SCREEN MAMM (CAD) W/MICH BILAT MR#: [id number] Acct: [id number] Name: DAVID HUBBARD Rep #: [id number] : 1945 F 74 From: Emory canseco MD PCP: KARO Sneed Status: [facility] Study: SCREEN MAMM (CAD) W/MICH BILAT Date of Exam: Exam# [id number] Ordering Dr: Mihaela Hui NP, NP-Elen MAMMOGRAPHY - BILATERAL SCREENING REASON FOR EXAM: [...] delay biopsy of a clinically suspicious abnormality. [id number] Electronically Signed: Emory Sheppard, at 10:12 EDT , Service support , CC: KARO Hui Loss Prevention Agent: Signed Mihaela Hui Work Phone: Start: 08-18-2019 End: 08-18-2019 Abdomen Single View Comments: See Note; NOTES: [facility] Imaging Services [address] [place] [address] Abdomen Single View MR#: [id number] Acct: [id number] Name: DAVID HUBBARD Rep #: [id number] : 1945 F 73 From: Nancy Méndez MD PCP: KARO Sneed Status: REG CLI Study: Abdomen Single View Date of Exam: 08/18/19 Exam# [id number] Ordering Dr: Mihaela Hui STUDY: X-RAY - ABDOMEN/PELVIS REASON FOR EXAM: Female, 73 years old. EPIGASTRIC PAIN TECHNIQUE: Two AP supine views of the abdomen and pelvis. COMPARISON: June 08, 2019 FINDINGS: Lung bases are mostly out of the [id number]. Is partially visualized on the prior study [...] , Service support , CC: KARO Hui Loss Prevention Agent: Signed Mihaela Hui Work Phone: Start: 06-08-2019 End: 06-08-2019 Chest PA and Lateral Comments: See Note; NOTES: [facility] Imaging Services [facility] [place] [address] [place] [address] Chest PA and Lateral MR#: [id number] Acct: [id number] Name: DAVID HUBBARD Rep #: [id number] : 1945 F 73 From: Tasha Ferreira MD PCP: KARO Sneed Status: REG CLI Study: Chest PA and Lateral Date of Exam: 06/08/19 Exam# [id number] Ordering Dr: Mihaela Hui STUDY: X-RAY CHEST [...] , Service support , CC: KARO Hui Loss Prevention Agent: Signed Mihaela Hui Work Phone: Start: 06-06-2019 End: 06-06-2019 Urgent Care Visit Report Comments: See Note; NOTES: [facility] [address] [place] [address] OFFICE VISIT Date of Service: 06/06/19 MR#: [id number] Acct: [id number] Name: DAVID HUBBARD Rep #: [id number] : 1945 Provider: MAGAN German Age/Sex: 73/F Location: [facility] Status: Signed Intake Vital Signs06/06/19 Body Mass [...] the same day her family visited from [place]. The family members had been in a [...] no acute distress Orientation: alert, oriented x3 [facility] Head: normal to inspection, normocephalic Ears: hearing [...] Route Admin Location Lot Number Expiration DateNDC Oil Refiner 2.5 mg continuous nebu [id number] 10/12/19 55859-777-65 [employer] lization Assessment AND Plan Problems 1. Exacerbation of [...] mg/3 mL (0.2.5 mg (3 mL) continuous wbsdlchyX36.901 Lupe Figueroa 083 %) solution for nebulization [...] W/MICH BILAT Comments: See Note; NOT ES: [facility] Imaging Services [address] [place] [address] SCREEN MAMM (CAD) W/MICH BILAT MR#: [id number] Acct: [id number] Name: DAVID HUBBARD Rep #: [id number] : 1945 F 73 From: Emory Sheppard MD PCP: KARO Sneed Status: [facility] Study: SCREEN MAMM (CAD) W/MICH BILAT Date of Exam: 04/30/19 Exam# [id number] Ordering Dr: Ciesa,Mihaela HAIR SALON MANAGER-C MAMMOGRAPHY - BILATERAL SCREENING REASON FOR EXAM: [...] delay biopsy of a clinically suspicious abnormality. [id number] Electronically Signed: Emory Sheppard, at 12:39 EDT , Service support , CC: KARO Hui Loss Prevention Agent: Signed Mihaela Hui Work Phone: Start: 02-04-2019 End: 02-04-2019 Cardiology Visit Report Comments: See Note; NOTES: [facility] [address] [place] [address] OFFICE VISIT Date of Service: 02/04/19 MR#: [id number] Acct: [id number] Name: DAVID HUBBARD Rep #: [id number] : 1945 Provider: Hannah Loo Age/Sex: 73/F Location: [facility] Status: Signed [facility] History of Present Illness Details: This [...] Lt brachial Intake Visit Reasons: 6 M Director Of Food And Nutrition Services Required: No Accompanied by: None Is patient [...] mg PO DAILY 02/04/19 [History Confirmed 02/04/19] [facility] Medical History (Updated 02/04/19 @ 13:39 by [...] CARRERO Cosigner Signature: Date (if applicable) CC: CAMERON Hui Start: 09-05-2018 End: 09-05-2018 Stress Report Comments: See Note; NOTES: [facility] Cardiovascular Services [address] [place] [address] MR#: [id number] Acct: [id number] Name: DAVID HUBBARD Magi Rep #: [id number] : 1945 73 From: Emanuel Ruffin MD Primary Care: Mihaela Hui NP Status: REG CLI Ordering Dr: Sex: F [...] 76 %. This note was generated with [employer]ax[employer] software. It may contain incorrect words, spelling, and punctuation that were not noted in checking the note before signing. 09/05/181904 <Electronically signed by Emanuel Ruffin MD> Date Emanuel Ruffin MD CC: Mihaela Hui HAIR SALON MANAGER; Emanuel Ruffin MD Date Dictated: 09/05/181849 Date Transcribed: 09/05/181849 Loss Prevention Agent: PM Signed Mihaela Hui Start: 09-05-2018 End: 09-05-2018 Echocardiogram Complete Comments: See Note; NOTES: [facility] Cardiovascular Services [address] [place] [address] Echo Complete 09/05/18921 MR#: [id number] Acct: [id number] Name: DAVID HUBBARD Rep #: [id number] : 1945 73 From: Emanuel Ruffin MD Attending Dr: Emanuel Ruffin MD Status: REG CLI Ordering Dr: Emanuel Ruffin MD Date: 09/05/18 Location: [facility] Sex: F AA Admitted: Reason For Study: [...] Date Emanuel Ruffin MD CC: Mihaela Hui HAIR SALON MANAGER; Emanuel Ruffin MD Date Dictated: 09/05/18921 Date Transcribed: 09/05/181807 Loss Prevention Agent: Signed Emanuel Ruffin Work Phone: Start: 08-07-2018 End: 08-07-2018 Cardiology Visit Report Comments: See Note; NOTES: [facility] [address] [place] [address]. [address] [place] [address] OFFICE VISIT Date of Service: 08/07/18 MR#: [id number] Acct: [id number] Name: DAVID HUBBARD Rep #: [id number] : 1945 Provider: Emanuel Ruffin MD Age/Sex: 72/F Location: [facility] Status: Signed HPI HPI Details: DAVID [...] PO DAILY PRN 08/07/18 [History Confirmed 08/07/18] [facility] Medical History Patent foramen ovale (Chronic) Essential [...] dizziness, lightheadedness, frequent falls or orthostatic symptoms Zaen Hematologic/Lymphatic: Negative for easy bleeding Endo Endo: [...] prior to saving. Follow Up 6 Months (PFM) Coding Level of Care Code Off vis,new,level [...] Date (if applicable) CC: Mihaela Hui Start: 08-07-2018 End: 08-07-2018 12 Lead EKG performed by [facility] Comments: See Note; NOTES : [facility] [address] [place] [address] 12 Lead EKG performed by RO[facility] 08/07/18 1428 MR#: [id number] Acct: [id number] Name: DAVID HUBBARD #: [id number] : 1945 72 From: Emanuel Ruffin MD Attending Dr: Emanuel Ruffin MD Status: DEP AMB Ordering Dr: Emanuel Ruffin MD Date: 08/07/18 Location: [facility] Sex: F AA Admitted: [facility]/12 Lead EKG performed by [facility] ECG Report Interpretation Sin us Bradycardia Nonspecific T wave abnormalityElectronically signed on 08/07/2018 at 19:13 by Emanuel Ruffin [employer] Software Version [id number] 08/07/181916 Date Emanuel Ruffin MD CC: Mihaela Hui NP Date Dictated: 08/07/18 142 Date Transcribed: 08/07/181427 Loss Prevention Agent: PM Signed Emanuel Ruffin Work Phone: Start: 06-29-2018 End: 06-29-2018 Urgent Care Visit Report Comments: See Note; NOTES: [facility] [address] [place], [place] [id number] OFFICE VISIT Date of Service: 06/29/18 MR#: [id number] Acct: [id number] Name: DAVID HUBBARD Magi Rep #: [id number] : 1945 Provider: Hannah Loo Age/Sex: 72/F Location: [facility] Status: Signed Intake Vital Signs06/29/18 Height 5 ft 8 in 06/29/18 Weight: 180 lb 06/29/18 Body Mass Index (BMI) 27.3 06/29/18 Blood Pressure 126/78 H Intake Visit Reasons: COUGH, FEVER Director Of Food And Nutrition Services Required: No Accompanied by: SELF Is patient [...] importance of hydration. Recommended the use of cqok-ukz-[id number] support from Advil, Tylenol and qobb-apc-fatfedp cold medications to help alleviate symptoms. Did [...] MAMM (CAD), BILAT Comments: See Note; NOTES: [facility] Imaging Services [address] [place] [address] SCREENING MAMM (CAD), BILAT MR#: [id number] Acct: [id number] Name: DAVID HUBBARD Rep #: [id number] : 1945 F 72 From: Emory Sheppard MD PCP: Mihaela Hui NP Status: REG CLI Study: SCREENING MAMM (CAD), BILAT Date of Exam: 04/24/18 Exam# [id number] Ordering Dr: Mihaela Hui HAIR SALON MANAGER-C MAMMOGRAPHY - BILATERAL SCREENING REASON FOR EXAM: [...] delay biopsy of a clinically suspicious abnormality. [id number] Electronically Signed: Emory Sheppard MD at 11:19 EDT Tel [phone], Service support , CC: Mihaela Hui NP Loss Prevention Agent: Signed Mihaela Hui Work Phone: Start: 05-23-2017 End: 05-23-2017 Dexa Bone Density Study (HP) Comments: See Note; NOTES : [facility] Imaging Services [address] [place] [address] Dexa Bone Density Study (HP) MR#: [id number] Acct: [id number] Name: DAVID HUBBARD Rep #: [id number] : 1945 F 71 From: Emory Sheppard MD PCP: Mihaela Hui Status: REG CLI Study: Dexa Bone Density Study (HP) Date of Exam: 05/23/17 Exam# [id number] Ordering Dr: Mihaela Hui STUDY: DUAL ENERGY [...] Emory Sheppard MD at 11:00 EST Tel [phone], Service support , CC: Mihaela Hui Loss Prevention Agent: Signed Mihaela Hui Work Phone: Start: 02-22-2017 End: 02-28-2017 SCREENING MAMM (CAD), BILAT Comments: See Note; NOTES: [facility] Imaging Services [address] [place] [address] SCREENING MAMM (CAD), BILAT MR#: [id number] Acct: [id number] Name: DAVID HUBBARD Rep #: [id number] : 1945 F 71 From: Emory Sheppard MD PCP: Mihaela Hui Status: REG CL Study: SCREENING MAMM (CAD), BILAT Date of Exam: 02/22/17 Exam# [id number] Ordering Dr: Mihaela Hui MAMMOGRAPHY - BILATERAL [...] delay biopsy of a clinically suspicious abnormality. [id number] Electronically Signed: Emory Sheppard MD at 12:02 EDT Tel [phone], Service support , CC: Mihaela Hui Loss Prevention Agent: Signed Mihaela Hui Work Phone: Start: 09-13-2015 End: 09-13-2015 Spmtry w/vc expiratory paris w/wo mxml vol vntj _ Yue Hi Work Phone: Comment on above: see scanned document of test done to see results reviewed today with patient normal Start: 02-01-2015 End: 02-01-2015 Echocardiogram Complete Comments: See Note; NOTES: [facility] Cardiovascular Services [address] [place] [address] Echo Complete 02/01/15 0813 MR#: [id number] Acct: [id number] Name: DAVID HUBBARD Rep #: [id number] : 1945 69 From: Michael Tamayo MD Attending Dr: Yue Hi MD Status: REG CLI Ordering Dr: Yue Hi MD Date: 02/01/15 Location[facility] Sex: F C Admitted: ADDENDUM by Michael [...] MD CC: Yue Hi MD Date Dictated: 02/01/15 0813 Date Transcribed: 02/01/15 1314 Loss Prevention Agent: Signed Yue Hi Work Phone: Start: 02-01-2015 End: 02-02-2015 Nuclear Stress Test - Treadmil Comments: See Note; NOT ES: [facility] Imaging Services [address] [place] [address] STRESS TEST REPORT 02/01/15 0901 MR#: [id number] Acct: [id number] Name: DAVID HUBBARD Rep #: [id number] : 1945 69 From: Michael Tamayo MD [...] noted. Michael Tamayo MD T: NTS JOB: [id number] 02/02/15 0750 <Electronically signed by Michael Tamayo MD> Date Michael Tamayo MD CC: Yue Hi MD Date Dictated: 02/01/15900 Date Transcribed: 02/01/15900 Loss Prevention Agent: Signed Yue Hi Work Phone: Start: 07-15-1970 [...] Lara Comment on above: right early benign Colonoscopy BRONSON BYNUM MD CTS Katalina Thomas Comment on above: left hand 2002 CTS William Robertson Comment on above: left hand 2002 CTS Katalina Thomas Comment on above: left hand 2002 CTS William Robertson Comment on above: left hand 2002 CTS Rupa Boudreaux Comment on above: left hand 2002 CTS William Lara Comment on above: left hand 2002 CTS William Lara Comment on above: left hand 2003 D and C Katalina Thomas Comment on above: Chrystal Robertson Comment on above: Chrystal Thomas Comment on above: Chrystal Robertson Comment on above: Ryan preston C Rupa Boudreaux Comment on above: Chrystal Lara Comment on above: Chrystal Lara Comment on above: Decompression of median nerve BRONSON BYNUM MD Right knee scoped Katalina Thomas Comment on above: 1999 Right knee scoped William Smi th Comment on above: 1999 Right knee scoped Katalina Murphylear Comment on above: 1999 Right knee scoped William Smi th Comment on above: 1999 Right knee scoped Rupa Hay rb Comment on above: 1999 Right knee scoped William Barak is Comment on above: 1999 Right knee scoped William Barak is Comment on above: 1999 Screening for osteoporosis Scree zafar for osteoporosis (Renamed from Encounter for screening for osteoporosis) Mihaela Hui Tammy Hawkins Fast DO Work Phone: William Kinney CMA Plan of Treatment Date Care Activity Detail Author Start: 01-20-2025 Basic metabolic 2008 panel with ionized calcium - Serum or Plasma [facility] Start: 11-30-2024 Helicobacter pylori [Presence] in Stomach by urea breath test [facility] Start: 11-27-2024 CBC W Auto Differential panel - Blood [facility] Start: 11-27-2024 Comprehensive metabolic 2000 panel - Serum or Plasma [facility] Start: 11-27-2024 Evaluation of diagnostic study results [facility] Start: 08-28-2023 Patient referral [facility] Work Phone: Start: 11-08-2021 Procedure Education [facility] Work Phone: Start: 09-06-2021 25 hydroxy includes fractions if performed [facility]; [facility] Work Phone: Start: 09-06-2021 Procedure Education [facility]; [facility] Work Phone: [...] Work Phone: Start: 09-01-2021 Lipid panel [facility] Work Phone: Start: 09-01-2021 Blood count complete auto&auto difrntl wbc [facility] Work Phone: Start: 09-01-2021 Assay of thyroid stimulating hormone tsh [facility]; [facility] Work Phone: Start: 08-22-2021 Procedure Education [facility] Work Phone: Start: 03-01-2021 Procedure Education [facility] Work Phone: Start: 03-01-2021 Provider Instructions for Treatment [facility] Work Phone: Start: 08-31-2020 Procedure Education [facility] Work Phone: Start: 08-31-2020 Provider Instructions for Treatment [facility]; [facility] Work Phone: Start: 06-06-2020 Procedure Education [facility] Work Phone: Start: 03-16-2020 Lipid panel Lipid Panel (29681) [facility] Work Phone: Comment on above: Aug 2020 Start: 03-16-2020 TSH Qn TSH (21968) [facility] Work Phone: Comment on above: Aug 2020 Start: 03-16-2020 Blood count complete auto&auto difrntl wbc CBC, Platelets & Auto Diff (29188) [facility] Work Phone: Comment on above: Aug 2020 Start: 03-16-2020 Comprehensive metabolic panel Metabolic Panel, Comprehensive (47298) [facility] Work Phone: Comment on above: Aug 2020 Start: 03-16-2020 Procedure Education [facility] Work Phone: Start: 03-16-2020 Provider Instructions for Treatment [facility] Work Phone: Start: 09-14-2019 Procedure Education [facility] Work Phone: Start: 09-14-2019 Provider Instructions for Treatment [facility] Work Phone: Start: 08-18-2019 Procedure Education [facility] Work Phone: Start: 08-18-2019 Provider Instructions for Treatment [facility] Work Phone: Start: 06-08-2019 Procedure Education [facility] Work Phone: Start: 06-08-2019 Provider Instructions for Treatment [facility] Work Phone: Start: 10-07-2018 Urnls dip stick/tablet reagent auto microscopy URINALYSIS, W/ MICRO (12907) [facility] Work Phone: Start: 10-07-2018 Blood count manual cell count each CBC WITH MANUAL DIFF (20033) [facility] Work Phone: Start: 10-07-2018 TSH Qn TSH (THYROID STIMULATING HORMONE) (99878) [facility] Work Phone: Start: 10-07-2018 Lipid panel LIPID PANEL (09780) [facility] Work Phone: Start: 10-07-2018 Comprehensive metabolic panel METABOLIC PANEL, COMPREHENSIVE (05929) [facility] Work Phone: Start: 09-29-2018 Blood count complete auto&auto difrntl wbc [facility] Work Phone: Start: 09-15-2018 Procedure Education [facility] Work Phone: Start: 09-15-2018 Provider Instructions for Treatment [facility] Work Phone: Start: 09-12-2018 Virus centrifuge enhncd id imfluor stain ea Influenza A&B Viral Culture (57002) [facility] Work Phone: Start: 09-12-2018 Procedure Education [facility] Work Phone: Start: 09-12-2018 Provider Instructions for Treatment [facility] Work Phone: Start: 09-12-2018 Iaadiadoo influenza [facility] Work Phone: Start: 09-12-2018 Culture bct isol&prsmptv id isolate ea urine URINE JASON CULTURE-IDENTIFICATN (68026) [facility] Work Phone: Start: 09-12-2018 Iaadiadoo influenza [facility] Work Phone: Start: 09-12-2018 Blood count complete auto&auto difrntl wbc [facility] Work Phone: Start: 09-12-2018 Comprehensive metabolic panel [facility] Work Phone: Start: 07-09-2018 Procedure Education [facility] Work Phone: Start: 07-09-2018 Provider Instructions for Treatment [facility] Work Phone: Start: 12-13-2017 Urine albumin quantitative [facility] Work Phone: Start: 12-13-2017 Urinalysis qual/semiquant except immunoassays [facility] Work Phone: Start: 10-21-2017 Procedure Education [facility] Work Phone: Start: 10-21-2017 Provider Instructions for Treatment [facility] Work Phone: Start: 10-18-2017 Procedure Education [facility] Work Phone: Start: 10-18-2017 Provider Instructions for Treatment [facility] Work Phone: Start: 08-19-2017 Procedure Education [facility] Work Phone: Start: 08-19-2017 Provider Instructions for Treatment [facility] Work Phone: Start: 04-12-2017 Procedure Education [facility] Work Phone: Start: 04-12-2017 Provider Instructions for Treatment [facility] Work Phone: Start: 01-04-2017 Provider Instructions for Treatment [facility] Work Phone: Start: 11-26-2016 Provider Instructions for Treatment [facility] Work Phone: Start: 10-02-2016 Procedure Education [facility] Work Phone: Start: 10-02-2016 Provider Instructions for Treatment [facility] Work Phone: Start: 09-05-2016 Provider Instructions for Treatment [facility] Work Phone: Start: 08-21-2016 Rheumatoid factor quantitative [facility] Work Phone: Start: 08-21-2016 Provider Instructions for Treatment [facility] Work Phone: Start: 02-13-2016 Procedure Education [facility] Work Phone: Start: 02-13-2016 Provider Instructions for Treatment [facility] Work Phone: Start: 01-31-2016 Procedure Education [facility] Work Phone: Start: 02-23-2015 Provider [...] Work Phone: Start: 01-17-2015 Lipid panel [facility] Work Phone: Start: 01-17-2015 Procedure Education [facility] Work Phone: Start: 12-28-2013 Urnls dip stick/tablet reagent auto microscopy [facility] Work Phone: Start: 12-28-2013 Urine albumin quantitative [facility] Work Phone: Start: 12-28-2013 Comprehensive metabolic panel [facility] Work Phone: Start: 12-28-2013 Lipid panel [facility] Work Phone: Start: 12-28-2013 Blood count manual cell count each [facility] Work Phone: Start: 05-20-2013 Provider Instructions for Treatment [facility] Work Phone: Start: 04-21-2013 Patient Education [facility] Work Phone: Start: 10-23-2012 Patient Education [facility] Work Phone: Start: 10-14-2012 Provider Instructions for Treatment [facility] Work Phone: Start: 03-11-2012 Provider Instructions for Treatment [facility] Work Phone: Start: 02-07-2012 Urnls dip stick/tablet rgnt non-auto w/o micrscp [facility] Work Phone: Comment on above: do in 4-6weeks or so to recheck per msg from 6.26.12 Alanine aminotransfe rase [Enzymatic activity/volume] in Serum or Plasma [facility] Albumin [Mass/volume ] in Serum or Plasma [facility] Alkaline phosphatase [Enzymatic activity/volume] in Serum or Plasma [facility] Anion gap in Serum o r Plasma [facility] Anion gap in Serum o r Plasma [facility] Bilirubin, total measurement [facility] BUN/Creatinine ratio [facility] BUN/Creatinine ratio [facility] Calcium [Mass/volume ] in Serum or Plasma [facility] Calcium [Mass/volume ] in Serum or Plasma [facility] Carbon dioxide, tota l [Moles/volume] in Central venous blood [facility] Carbon dioxide, tota l [Moles/volume] in Central venous blood [facility] Creatinine [Mass/vol ume] in Serum or Plasma [facility] Creatinine [Mass/vol ume] in Serum or Plasma [facility] Erythrocyte mean corpuscular volume determination [facility] Glucose [Mass/volume ] in Serum or Plasma [facility] Glucose [Mass/volume ] in Serum or Plasma [facility] Helicobacter pylori [Presence] in Stomach by urea breath test [facility] Helicobacter pylori Ag [Presence] in Stool by Immunoassay [facility] Helicobacter pylori Ag [Presence] in Stool by Immunoassay [facility] Hematocrit [Volume Fraction] of Blood [facility] Hemoglobin [Mass/vol ume] in Blood [facility] Leukocytes [#/volume ] in Blood [facility] Mean corpuscular hemoglobin concentration determination [facility] Mean corpuscular hemoglobin determination [facility] Measurement of renal function [facility] Measurement of renal function [facility] Neutrophil count [facility] Neutrophil percent differential count [facility] Patient referral [facility] Work Phone: Platelets [#/volume] in Blood [facility] Potassium measurement [facility] Potassium measurement [facility] Red blood cell count [facility] Red cell distributio n width determination [facility] Serum chloride measurement [facility] Serum chloride measurement [facility] Sodium measurement [facility] Sodium measurement [facility] Total protein measurement [facility] Urea nitrogen [Mass/volume] in Serum or Plasma [facility] Urea nitrogen [Mass/volume] in Serum or Plasma [facility] XR Lumbar spine 2 or 3 Views [facility] Work Phone: [facility] [...] nternal Medicine; [facility] Work Phone: [facility] Immunizations Immunization Date Immunization Notes Care Provider [facility] 06-17-2024 Seasonal trivalent influenza vaccine, adjuvanted, preservative free Dr. Bronson Bynum MD Work Phone: [facility] 10-13-2020 Covid (Pfizer) Dr. Bronson Bynum Work Phone: [facility] 10-13-2020 COVID-Moderna (100 MCG/0.5 ML) Mihaela Hui CNP Work Phone: [facility]; [facility] Work Phone: 09-22-2020 Covid (Pfizer) Dr. Bronson Bynum Work Phone: [facility] 09-12-2020 COVID-Moderna (100 MCG/0.5 ML) Mihaela Hui CNP Work Phone: [facility]; [facility] Work Phone: Payers Date Payer Category Payer Unknown [id number] 2024 Self-pay [id number] 2023 Unknown [id number] 2021 Unknown [id number] 2018 Unknown [id number] 2016 Unknown [id number] 2010 Medicare [id number] 2010 Medicare [id number] 1945 Unknown [id number] 2.16.84 0.1.143652.3.579.2.716 1945 Unknown [id number] 2.16.8 40.1.275229.3.579.2.627 1945 Unknown [id number] 2.16.8 40.1.329551.3.579.2.627 1945 Unknown [id number] 2.16.8 40.1.862774.3.579.2.627 1945 Unknown [id number] 2.16.8 40.1.027585.3.579.2.627 1945 Unknown [id number] 2.16.8 40.1.410597.3.579.2.627 Unknown Unknown [id number] Unknown [id number] 2.16.8 40.1.693765.3.579.2.462 Unknown [id number] 2.16.8 40.1.507891.3.579.2.462 Unknown [id number] 2.16.8 40.1.332232.3.579.2.462 Unknown [id number] 2.16.8 40.1.130183.3.579.2.462 Unknown [id number] 2.16.8 40.1.830541.3.579.2.462 Unknown [id number] 2.16.8 40.1.566998.3.579.2.462 Unknown [id number] 2.16.8 40.1.827875.3.579.2.462 Unknown [id number] 2.16.8 40.1.090976.3.579.2.462 Unknown [id number] 2.16.8 40.1.228069.3.579.2.462 Unknown [id number] 2.16.8 40.1.646935.3.579.2.462 Unknown [id number] 2.16.8 40.1.507062.3.579.2.462 Unknown [id number] 2.16.8 40.1.504103.3.579.2.462 Unknown [id number] 2.16.8 40.1.549816.3.579.2.462 Unknown [id number] 2.16.8 40.1.277746.3.579.2.462 Unknown [id number] 2.16.8 40.1.171653.3.579.2.462 Unknown [id number] 2.16.8 40.1.473707.3.579.2.462 Unknown [id number] 2.16.8 40.1.310351.3.579.2.462 Unknown [id number] 2.16.8 40.1.941148.3.579.2.462 Unknown [id number] 2.16.8 40.1.267160.3.579.2.462 Social History Date Type Detail Facility Caffeine Use Never smoker [facility] Work Phone: Comment on above: 5 cups qd Current Work/Study Status: Retired. 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 [facility] Work Phone: Living Situation: Lives with spouse. [facility] Work Phone: Comment on above: Tobacco use: Never smoker. [facility] Work Phone: Retired. [facility] Work Phone: Does not exercise. [facility]; [facility] Work Phone: Lives with spouse. [facility]; [facility] Work Phone: Never smoker. [facility] Work Phone: Start: 08-27-2022 End: 08-28-2023 Tobacco smoking status NHIS Unknown if ever smoked [facility] Start: 1945 Sex Assigned At Female [facility] Start: 06-13-2019 End: 02-01-2025 Tobacco smoking status Never smoked tobacco (finding) [facility] Sex Assigned At Sex [facility] Functional Status Date Assessment Result Facility 06-05-2024 Functional Status Awake, Resting [facility] 06-05-2024 Functional Status Maintained [facility] 03-29-2024 Functional Status ID band on, Call device within reach, Bed in low position, Wheels locked, Bedside Cart Locked [facility] 01-09-2024 Functional Status Independent [facility] 09-04-2023 Functional Status Objective: Observation: no obvious muscle or joint deformities, Cardiovascular screen: BP: 120/80 HR: 57 O2 sat: 96% Special tests: Drop arm: - , HK: +L, Painful arc: +L, infraspinatus: - L [facility] Mental Status Date Assessment Result Facility 06-05-2024 Mental Status Oriented x 4 [facility] 06-05-2024 Mental Status [facility] 03-29-2024 Mental Status Oriented x 4 [facility] 01-09-2024 Mental Status Oriented x 4 [facility] Clinical Notes 01-09-2024 to 01-20-2025 Note Date & Type Note Facility 01-20-2025 Evaluation note Diagnosis Onset Date Resolution Atypical chest pain acute January 20, 2025 1:56pm Essential hypertension chronic Ju ly 2024 1:56pm Helicobacter pylori gastritis chronic January 20, 2025 1:56pm Lumbar radiculopathy chronic January 20, 2025 1:56pm Osteoarthritis chronic January 20, 2025 1:56pm Epigastric abdominal pain acute February 01, 2025 1:54pm GERD (gastroesophageal reflux disease) chronic February 01, 2025 1:54pm Helicobacter pylori gastritis chronic February 01, 2025 1:54pm Helicobacter pylori gastritis chronic March 29, 2025 2:53pm [employer] Work Phone: 1(411) 724-603805-16-2025 Evaluation note* Diagnosis Onset Date Resolution Status Admit Date Atypical chest pain acute November 122024 1:55pm Essential hypertension chronic Ma y 2024 1:55pm GERD (gastroesophageal reflu x disease) chronic November 27, 2024 1 :55pm Helicobacter pylori gastritis chroni c November 27, 2024 1:55pm [email or web address] Work Phone: 1(526) 301-191205-16-2025 Evaluation note* Diagnosis Onset Date Resolution Status Admit Date Atypical chest pain acute November 122024 1:55pm Essential hypertension chronic Ma y 2024 1:55pm GERD (gastroesophageal reflu x disease) chronic November 27, 2024 1 :55pm Helicobacter pylori gastritis chroni c November 27, 2024 1:55pm Atypical chest pain acute January 20, 2025 1:56pm Essential hypertension chronic Ju ly 2024 1:56pm Helicobacter pylori gastritis chroni c January 20, 2025 1:56pm Lumbar radiculopathy chronic January 20, 2025 1:56pm Osteoarthritis chronic January 20, 2025 1:56pm [facility] Work Phone: 1(288) 239-588505-16-2025 Evaluation note* Diagnosis Onset Date Resolution Status Admit Date Atypical chest pain acute November 122024 1:55pm Essential hypertension chronic Ma y 2024 1:55pm GERD (gastroesophageal reflu x disease) chronic November 27, 2024 1 :55pm Helicobacter pylori gastritis chroni c November 27, 2024 1:55pm Atypical chest pain acute January 20, 2025 1:56pm Essential hypertension chronic Ju ly 2024 1:56pm Helicobacter pylori gastritis chroni c January 20, 2025 1:56pm Lumbar radiculopathy chronic January 20, 2025 1:56pm Osteoarthritis chronic January 20, 2025 1:56pm Epigastric abdominal pain acute February 01, 2025 1:54pm GERD (gastroesophageal reflu x disease) chronic February 01, 2025 1:54pm Helicobacter pylori gastritis chroni c February 01, 2025 1:54pm [facility] Work Phone: 1(841) 318-890803-05-2025 Evaluation note* Diagnosis Onset Date Resolution Status Admit Date Essential hypertension chronic Ma rc2024 1:24pm GERD (gastroesophageal reflu x disease) chronic September 16, 2024 1:24pm Helicobacter pylori gastritis chroni c September 16, 2024 1:24pm Osteoarthritis chronic September 16, 2024 1:24pm Atypical chest pain acute November 122024 1:55pm Essential hypertension chronic Ma y 2024 1:55pm GERD (gastroesophageal reflu x disease) chronic November 27, 2024 1 :55pm Helicobacter pylori gastritis chroni c November 27, 2024 1:55pm [email or web address] [facility] Work Phone: 1(764) 969-602111-22-2024 Evaluation + Plan noteExtracted from: Title:Clinical Document Author:TYLER JOHNSON Date:06/05/24 [place] ADMISSION HISTORY AN D PHYSICIAL CHIEF COMPLAINT: HISTORY OF PRESENT ILLNESS: REVIEW OF SYSTEMS: ACTIVE PROBLEMS: (2) Arthritis (9013146) Hypertension (37873406) MEDICATIONS: Active Inpt Meds: None Active PRN Meds: None One Time Meds: None Active IV Meds: Lactated Ringers Infusion 1,000 mL (LR 1,000 mL) Start: 06/05/24 8:09:00 EST, Rate: 50 mL/hr, 06/05/24 8:09:00 EST ALLERGIES: (1) NKA FAMILY HISTORY: SOCIAL HISTORY: PHYSICAL EXAM: VITALS: EnyolvQntmNIIetunPGWlL0IHS0CbvwTe(kg) 06/05 08:1636.4--190427--40/22 82.0 24 Hr Tmax: 36.4 at 06/05 [...] changes to the H&P unless noted below. [facility] 11-22-2024 Hospital Discharge instructions Patient Education 06/05/2024 [...] bacteria. Follow these instructions at home: Take voob-nvv-fgopbya and prescription medicines only as told by [...] and water are not available, use hand manufacturers agent. ?Do not eat food or drink water [...] 10/22/2016 Document Revised: 10/22/2019 Document Reviewed: 06/24/2018 [employer] Patient Education 2019 [employer] 06/05/2024 09:56:27 Esophagogastroduodenoscopy, Care After (64213) Esophagogastroduodenoscopy, Care After Refer to this sheet [...] 06/17/2013 Document Revised: 12/06/2016 Document Reviewed: 05/24/2016 [employer] Interactive Patient Education 2019 [employer] 06/05/2024 09:56:23 Nausea and Vomiting, Adult Nausea [...] water added (diluted fruit juice). Eat bland, qnnn-zo-ytixlw foods in small amounts as you are able. These foods include bananas, applesauce, rice, lean meats, toast, and crackers. Avoid fluids that contain a lot of sugar or caffeine, such as energy drinks, sports drinks, and soda. Avoid alcohol. Avoid spicy or fatty foods. General instructions Take bbnf-xhc-fnmixmj and prescription medicines only as told by your health care provider. Drink enough fluid to keep your urine pale yellow. Wash your hands often using soap and water. If soap and water are not available, use hand manufacturers agent. Make sure that all people in your [...] eating and drinking to prevent dehydration. Take vcxs-yjw-syguzpf and prescription medicines only as told by [...] 07/01/2006 Document Revised: 10/23/2019 Document Reviewed: 12/09/2018 [employer] Patient Education 2020 [employer]. 06/05/2024 09:56:09 Moderate Conscious Sedation, Adult, Care [...] until you are awake and alert. Take fjxd-zmi-qiqfmhr and prescription medicines only as told by [...] 04/21/2014 Document Revised: 06/13/2018 Document Reviewed: 10/20/2016 [employer] Patient Education 2020 [employer]. Follow Up Care 06/01/2024 07:34:04 With:TYLER JOHNSON MD Address: [address] [facility] [address] [place] [address] [phone] When: only if needed [facility] 11-22-2024 Note Discharge Instructions Thank you for allowing [facility] to assist you with your healthcare needs. The following is importantdischarge information regarding your hospital visit. Your Care Team BRONSON BYNUM MD What to do next Follow Up Appointments Follow Up with TYLER JOHNSON MD When:Only if needed Where:[address] [facility] [address] [place] [address] [phone] Medications Please ask your primary doctor or pharmacist before taking any other medication not listed, including over the counter drugs, herbal medications, vitamins and or supplements as they may interact withur home medications. What How Much When Instructions [...] bacteria. Follow these instructions at home: Take glkc-tqg-zpcswyh and prescription medicines only as told by [...] and water are not available, use hand manufacturers agent. ? Do not eat food or drink [...] 10/22/2016 Document Revised: 10/22/2019 Document Reviewed: 06/24/2018 [employer] Patient Education 2020 [employer]. Esophagogastroduodenoscopy, Care After Refer to this sheet [...] 06/17/2013 Document Revised: 12/06/2016 Document Reviewed: 05/24/2016 [employer] Interactive Patient Education 2019 [employer]. Nausea and Vomiting, Adult Nausea is the [...] water added (diluted fruit juice). Eat bland, hvor-jf-lcrwpb foods in small amounts as you are able. These foods include bananas, applesauce, rice, lean meats, toast, and crackers. Avoid fluids that contain a lot of sugar or caffeine, such as energy drinks, sports drinks, and soda. Avoid alcohol. Avoid spicy or fatty foods. General instructions Take lblj-vtb-hgeiiqz and prescription medicines only as told by your health care provider. Drink enough fluid to keep your urine pale yellow. Wash your hands often using soap and water. If soap and water are not available, use hand manufacturers agent. Make sure that all people in your [...] eating and drinking to prevent dehydration. Take qdwq-rsm-abphwpa and prescription medicines only as told by [...] 07/01/2006 Document Revised: 10/23/2019 Document Reviewed: 12/09/2018 [employer] Patient Education 2020 [employer] Moderate Conscious Sedation, Adult, Care After [...] until you are awake and alert. Take ijqt-hzm-gsqhnum and prescription medicines only as told by [...] 04/21/2014 Document Revised: 06/13/2018 Document Reviewed: 10/20/2016 [employer] Patient Education 2020 [employer] Additional Information VACCINATE! IT SAVES LIVES! Members of the community who have not yet received the COVID-19 vaccine and would like to receive it can visit one of [facility] vaccine clinics. There are many vaccine clinic locations within the [facility]. For locations and available times, please visit [email or web address].gov/. It is important to note that some COVID mobile vaccine clinics are held outdoors and may be canceled in rainy or stormy conditions. To learn more about pediatric vaccinations (ages 5-11), we invite you to visit the [facility] webpage. https://www.[facility].org/pages/9391-Trjwy-Izvvpupmnwn-Rlyhbujkxt-Lklvx-Gfy stions.htmlTo learn more about the COVID-19 vaccine, we invite you to visit the CDC website for a list of frequently asked questions.https://www.cdc.gov/coronavirus/2019-ncov/vaccines/faq.html [employer] Patient Portal Access Instructions: Stay connected with your healthcare team and access your personal medical information anytime with the [employer] Patient Portal. Please follow the directions below to create your [facility]ana[facility]apticom account: 1.Access the email account you provided upon registration to the hospital/physician office.2.Look for an invitation email from [facility].3.Open the email and access the invitation link: AcceptInvitation to [facility].4.Fill in the required esqueda to create your account. To access your account, visit [email or web address]. Click the blue button labeled Access Patient [...] who you will allowto register on the [facility] Patient Portal for access to your information. You can also access the [facility] Patient Portal on the [place] vushaperwhere lyn. Simply click on Patient Portal and then log into your account. If you would like to receive a full copy of your medical records, please contact the [facility] Medical Records Department by calling [phone], Saturday through Saturday between 8 a.m. and [...] Call your local pharmacy or go to http://bit.ly/4I8Qj0g to find one close to you.3.Make use of household items: Use cat litter or old coffee grounds to dispose medications if other options arenot available. Mix your drugs with these household products, seal them in an airtight container andthrow it into the garbage. Call [facility]: [phone] to be sure your drugs can be [...] Materials Helicobacter Pylori Infection Esophagogastroduodenoscopy, Care After (01011) Nausea and Vomiting, Adult Moderate Conscious Sedation, Adult, Care After Medication Leaflets My discharge plan and instructions have been reviewed and explained to me and ISTEVIE BARBARA J understand my current condition and have read and understand these discharge instructions. I have received a written copy of the plan/instructions. If I have questions, I am aware that I should contactmy doctor. 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: Date/Time: Relationship to Patient: Witness Name/Signature: Date/Time: [facility]11-22-2024 Anesthesiology Consult note Patient: DAVID HUBBARD Age: 78 years Sex: Female : 1945 Associated Diagnoses: None Author: CHILO TIWARIAUTO SERVICE MECHANIC Assessment Postanesthesia assessment Vitals: Vital signs from [...] by CHILO TIWARI on 06/05/2024 09:53 AM [facility]11-22-2024 Note Date of Service 06/05/2024 Procedure Name EGD with biopsy Consent Taken before procedure Indication Patient with chest pain and reflux Location [facility] Pre-Procedure Exam Patient with chest pain and [...] decompressed and the scope was withdrawn there were no mucosal abnormalities of the esophagus the patient [...] TYLER JOHNSON MD on 06/05/2024 09:53 AM [facility]11-22-2024 Note [place] ADMISSION HISTORY AND PHYSICIAL CHIEF COMPLAINT: HISTORY OF PRESENT ILLNESS: REVIEW OF SYSTEMS: ACTIVE PROBLEMS: (2) Arthritis (2157267) Hypertension (44307373) MEDICATIONS: Active Inpt Meds: None Active PRN Meds: None One Time Meds: None Active IV Meds: Lactated Ringers Infusion 1,000 mL (LR 1,000 mL) Start: 06/05/24 8:09:00 EST, Rate: 50 mL/hr, 06/05/24 8:09:00 EST ALLERGIES: (1) NKA FAMILY HISTORY: SOCIAL HISTORY: PHYSICAL EXAM: VITALS: UywtxcKwayIXYpeeyKNIpJ1WWA3TdudBx(kg) 06/05 08:1636.4--440142--63/22 82.0 24 Hr Tmax: 36.4 at 06/05 [...] TYLER JOHNSON MD on 06/05/2024 09:40 AM [facility]11-22-2024 Anesthesiology Consult note Patient: DAVID HUBBARD Age: 78 years Sex: Female : 1945 Associated Diagnoses: None Author: CHILO TIWARI APRN-AUTO SERVICE MECHANIC Preoperative Information Time of last food or [...] Problem list: Medical Arthritis / SNOMED CT 8565707 / Confirmed Hypertension / SNOMED CT 22471380 / Confirmed, Active Problems (2) Arthritis Hypertension Histories Past Medical History: Active Arthritis (2232435) Hypertension (52693696) Family History: Diabetes mellitus Sister HTN - Hypertension Mother Procedure history: Cyst of right breast (577764017478404) in 1970 at 24 Years. Arthroscopy of knee (824835150). Carpal tunnel release (747746951). Colonoscopy (600787838). Social History: Social & Psychosocial Habits Alcohol [...] Signs (last 24 hrs) Last Charted Temp Doxkptis52.4 DegC (JUN 05 08:16) SBPH 142 mmHg (JUN 05 08:16) DBP74 mmHg (JUN 05 08:16) BMI26.7 (JUN 05 08:16) Measurements from flowsheet : Measurements 06/05/2024 8:16 EST Height 175.26 cm Admission Weight 82 kg Weight Method Stated Bement Body Weight 66.20 kg BSA Admission 1.98 [...] Attendee SN - CAt - Role Performed Administrative Law Judge 1 SN - CAt - Role Performed Filters Assembler 1 06/05/2024 9:30 EST SN - CAt - Case Attendee SN - CAt - Case Attendee SN - CAt - Case Attendee SN - CAt - Case Attendee SN - CAt - Role Performed Primary Surgeon SN - CAt - Role Performed AUTO SERVICE MECHANIC 06/05/2024 8:27 EST Hand Right 06/05/2024 22 [...] Person #2 We May Share PHI peg [phone] Designated Person #2 Relationship Sibling Height 175.26 cm Admission Weight 82 kg Weight Method Stated Bement Body Weight 66.20 kg BSA Admission 1.98 [...] evident Teaching Method Explanation Preferred Spoken Language Yemeni Preferred Written Language Yemeni Patient's Current Physicians edilberto whittington. Discharge To, [...] Note-Nursing Procedure/Therapy Intake . Assessment and Plan [place] Society of Anesthesiologists (ASA) physical status classification: Class II. Anesthetic Preoperative Plan Premedication: intravenous. Anesthetic technique: MAC. Induction: intravenously. Maintenance airway: Mask. Risks discussed: nausea, vomiting, headache, sore throat, dental injury, hypotension, allergic reaction, serious complications. Informed consent: signed by patient. Digitally Signed by CHILO TIWARI on 06/05/2024 09:31 AM [facility]09-15-2024 Hospital Discharge instructions Patient Education 03/29/2024 15:31:22 [...] Swelling, pain or redness in one leg 8415-9415 The [employer]. [address] [place] [address]. All rights reserved. This information is not [...] that stimulate the heart. This includes many bvna-gha-ompcgaf cold and sinus decongestant pills and sprays, as well as diet pills. Check the warnings about high blood pressure onthe label. Before buying any sadg-pcp-lnlbojj medicines or supplements, always ask the pharmacist [...] one of these at most pharmacies. The [place] [employer] Association recommends the following guidelines for [...] face You have problems speaking or seeing 7443-9264 [employer]. [address] [place] [address], [place] [address]. All rights reserved. This information is not [...] the back, neck, shoulder, or arm An guis-xio-xhaqujn trial of medicine doesn't relieve your symptoms Weight loss that can't be explained Trouble or pain swallowing Frequent vomiting (can t keep down liquids) Blood in the stool or vomit (red or black in color) Feeling weak or dizzy Fever of 100.4 F (38 C) or higher, or as directed by your healthcare provider 4870-0715 [employer]. [address] [place] [address], [place] [address]. All rights reserved. This information is not intended as a substitute for professional medical care. Always follow yourhealthcare professional's instructions. Follow Up Care 03/29/2024 12:54:56 With:TYLER JOHNSON Address: [address] [facility] [address] [place] [address] [phone] Business (1) When:2-4 days Comments:Follow-up as neededFollow-up for endoscopy if any reflux symptoms persistPrecautions as describedReturn for symptoms as described With:BRONSON BYNUM MD Address: [address] [place] [address] [phone] When:2-4 days Comments:Schedule appointment as soon as possibleReturn to ED if symptoms worsenPrecautions as describedReturn for symptoms as describedFollow-up for recheck and blood pressure [facility] 09-15-2024 Emergency department Discharge summary Discharge Instructions Thank you for allowing [facility] to assist you with your healthcare needs. [...] with your primary care physician or your removable prosthodontist as soon as possible for further te [...] with TYLER JOHNSON When:Within 2-4 days Where:[address] [facility] [place] [address] [phone] Business (1) Additional Information: Follow-up as needed Follow-up for endoscopy if any reflux symptoms persist Precautions as described Return for symptoms as described Follow Up with BRONSON BYNUM MD When:Within 2-4 days Where:[address] [facility] [place] [phone] Additional Information: Schedule appointment as soon as [...] Swelling, pain or redness in one leg 5774-8375 [employer]. [address] [place] [address]. All rights reserved. This information is not [...] that stimulate the heart. This includes many glis-veg-lyvjiin cold and sinus decongestant pills and sprays, as well as diet pills. Check the warnings about high blood pressure onthe label. Before buying any iicp-cwf-akbpzel medicines or supplements, always ask the pharmacist [...] one of these at most pharmacies. The [place] [employer] Association recommends the following guidelines for [...] face You have problems speaking or seeing 9170-2221 [employer]. [address] [place] [address], [place] [address]. All rights reserved. This information is not [...] the back, neck, shoulder, or arm An wxlj-beu-hxtovud trial of medicine doesn't relieve your symptoms Weight loss that can't be explained Trouble or pain swallowing Frequent vomiting (can t keep down liquids) Blood in the stool or vomit (red or black in color) Feeling weak or dizzy Fever of 100.4 F (38 C) or higher, or as directed by your healthcare provider 7599-9347 [employer]. [address] [place] [address]. All rights reserved. This information is not intended as a substitute for professional medical care. Always follow yourhealthcare professional's instructions. Additional Information VACCINATE! IT SAVES LIVES! Members of the community who have not yet received the COVID-19 vaccine and would like to receive it can visit one of [facility] vaccine clinics. There are many vaccine clinic locations within the [facility]. For locations and available times, please visit www.gettheshot.[email or web address].[place].gov/. It is important to note that some COVID mobile vaccine clinics are held outdoors and may be canceled in rainy or stormy conditions. To learn more about pediatric vaccinations (ages 5-11), we invite you to visit the [facility] webpage. https://www.[facility].org/pages/5588-Lnqcr-Efvqnwectjs-Wzyqatnjii-Kkfcr-Toq stions.htmlTo learn more about the COVID-19 vaccine, we invite you to visit the CDC website for a list of frequently asked questions. https://www.cdc.gov/coronavirus/2019-ncov/vaccines/faq.html [facility] Patient Portal Access Instructions: Stay connected with your healthcare team and access your personal medical information anytime with the [facility] Patient Portal. If you would like a full copy of your medical records please contact the [facility] Medical Records Department Saturday through Saturday between 8a.m. and 4:30p.m. Please follow the directions below to access the portal: 1.Access the email account you provided upon registration to the [facility].2.Look for an invitation email from [facility].3.Open the email and access the invitation link: Accept Invitation to [facility]4.Fill in the required esqueda to create your account. Sign into [email or web address] with your username and password that you [...] you will allow to register on the [facility] Patient Portal for access to your information. You can also access the [facility] Patient Portal on the [employer] lyn. Simply click on Health Records under Cued and then click on the Alana logo. HOW TO SAFELY DISPOSE OF PRESCRIPTION [...] Call your local pharmacy or go to http://bit.ly/8U6Hl9l to find one close to you.3.Make use of household items: Use cat litter or old coffee grounds to dispose medications if other options arenot available. Mix your drugs with these household products, seal them in an airtight container andthrow it into the garbage. Call [facility]: [phone] to be sure your drugs can be [...] am aware that I should contactmy doctor. 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: Date/Time: Relationship to Patient: Witness Name/Signature: Date/Time: [facility] [id number] Note ORIGINAL EXAMINATION: ONE XRAY VIEW OF [...] Date: 03/29/2024 2:28:06 PM [facility]ing [facility] NoteSinus rhythm SEE DICTATION Electronic Signature: PAT DELGADILLO MD 03/29/2024 13:22:32[facility] 06-29-2024 Note. MICRO - Microbiology PROCEDURE: Urine [...] Locations *1: This test was performed at: [facility], [address] [place] [address], [phone] , [facility] ([place])01-09-2024 Hospital Discharge instructions Patient Education 01/09/2024 14:39:09 [...] medicines you take. This includes prescription and iadp-jjt-qdjwqwm medicines, vitamins, and herbs. Ask if any [...] Open wound with redness, swelling, or pus 8914-8690 [employer]. [address] [place] [address], [place] [address]. All rights reserved. This information is not [...] swelling in the outer vaginal area (labia) 6213-1924 [employer]. [address] [place] [address], [place] [address]. All rights reserved. This information is not intended as a substitute for professional medical care. Always follow yourhealthcare professional's instructions. Follow Up Care 01/09/2024 12:03:54 With:MIHAELA HUI Address: [address] [place] [address] [address] [place] [address] [facility] (1) When:1-2 days Comments:Follow-up closely with your doctor for further workup, as discussed you may return to be admitted to the hospital anytime. Take antibiotics as prescribed. Take a 324 aspirin daily. [facility] 06-27-2024 Note Discharge Instructions Thank you for allowing [facility] to assist you with your healthcare needs. The following is importantdischarge information regarding your hospital visit. Diagnosis from Today's Visit Paresthesia What to Do Next Instructions from Your Care Team No qualifying data available. Post Acute Orders No qualifying data available. You Need to Schedule the Following Appointments Follow Up with MIHAELA HUI When:Within 1-2 days Where:[address] [place] [address] [address] [place] [address] [employer] (1) Additional Information: Follow-up closely with your [...] medicines you take. This includes prescription and iknk-oae-cymnrur medicines, vitamins, and herbs. Ask if any [...] Open wound with redness, swelling, or pus 5082-6869 [employer]. [address] [place] [address]. All rights reserved. This information is not [...] swelling in the outer vaginal area (labia) 2571-2908 [employer]. [address] [place] [address]. All rights reserved. This information is not intended as a substitute for professional medical care. Always follow yourhealthcare professional's instructions. Additional Information VACCINATE! IT SAVES LIVES! Members of the community who have not yet received the COVID-19 vaccine and would like to receive it can visit one of [facility] vaccine clinics. There are many vaccine clinic locations within the [facility]. For locations and available times, please visit www.gettheshot.coronavirus.[place].gov/. It is important to note that some COVID mobile vaccine clinics are held outdoors and may be canceled in rainy or stormy conditions. To learn more about pediatric vaccinations (ages 5-11), we invite you to visit the [facility] webpage. https://www.[facility].org/pages/0671-Uvtcs-Ouhqqzamwmx-Qblespunqu-Xhatm-Aae stions.htmlTo learn more about the COVID-19 vaccine, we invite you to visit the CDC website for a list of frequently asked questions. https://www.cdc.gov/coronavirus/2019-ncov/vaccines/faq.html [facility] Patient Portal Access Instructions: Stay connected with your healthcare team and access your personal medical information anytime with the [facility] Patient Portal. If you would like a full copy of your medical records please contact the [facility] Medical Records Department Saturday through Saturday between 8a.m. and 4:30p.m. Please follow the directions below to access the portal: 1.Access the email account you provided upon registration to the hospital.2.Look for an invitation email from [facility].3.Open the email and access the invitation link: Accept Invitation to [facility]4.Fill in the required esqueda to create your account. Sign into [email or web address] with your username and password that you [...] you will allow to register on the [facility] Patient Portal for access to your information. You can also access the [employer] Patient Portal on the [employer]. Simply click on Health Records under Cued and then click on the [employer] logo. HOW TO SAFELY DISPOSE OF PRESCRIPTION [...] Call your local pharmacy or go to [email or web address] to find one close to you.3.Make use of household items: Use cat litter or old coffee grounds to dispose medications if other options arenot available. Mix your drugs with these household products, seal them in an airtight container andthrow it into the garbage. Call [facility]: [phone] to be sure your drugs can be [...] am aware that I should contactmy doctor. 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: Date/Time: Relationship to Patient: Witness Name/Signature: Date/Time: [facility]06-27-2024 Evaluation + Plan note Diagnostic Tests Pending * Urine Culture 01/09/24 [facility] 06-27-2024 Note ORIGINAL HISTORY: Right arm numbness [...] Date: 01/09/2024 2:11:06 PM [facility]ing [facility] NoteSinus rhythm LAE, consider biatrial enlargement Baseline wander in lead(s) I,II,aVR Electronic Signature: CESAR BELLA [facility] No data available for this section [facility] Evaluation note* Diagnosis Onset Date Resolution Status Vertigo acute Chronic back pain chronic Essential hypertension chron ic GERD (gastroesophageal reflux disease) [facility] Work Phone: Evaluation note* Diagnosis Onset Date Resolution Status Allergy-induced asthma chron ic Essential hypertension chron ic GERD (gastroesophageal reflux disease) chronic Vertigo [facility] Work Phone: Evaluation note* Diagnosis Onset Date Resolution Status Rotator cuff impingement syndrome of left shoulder acute Rotator cuff impingement syndrome of left shoulder acute Allergy-induced asthma chron ic Essential hypertension chron ic GERD (gastroesophageal reflux disease) [facility] Work Phone: Hospital Discharge instructions No data available for this section [facility] Hospital Discharge instructionsAmbulatory Orders* Gastroenterology Location: None Selected [facility] Work Phone: Instructions* Name Dates Details Patient Instructions get lab s Sep 01 fasting and follow up 4-7 days later Indication:Postmenopausal (Renamed from Postmenopausal status) Start:01-Mar-2021 Instruction Type:Provider Instructions for Treatment How to Access Health Informa tion Online using Patient Portal and [employer] Apps Indication:BMI 34.0-34.9,adult Start:01-Mar-2021 Instruction Type:Patient Education Patient Instructions Indication:Non-smoker Start:31-Aug-2020 Instruction Type:Provider Instructions for Treatment How to Access Health Informa tion Online using Patient Portal and [employer] Apps Indication:Non-smoker Start:31-Aug-2020 Instruction Type:Patient Education How [...] tion Online using Patient Portal and [employer] Apps Indication:Sinusitis Start:22-Aug-2021 Instruction Type:Patient Education Patient Instructions Indication:Sinusitis Start:22-Aug-2021 Instruction Type:Provider Instructions for Treatment Patient Instructions get lab s Sep 01 fasting and follow up 4-7 days later Indication:Postmenopausal (Renamed from Postmenopausal status) Start:01-Mar-2021 Instruction Type:Provider Instructions for Treatment How to Access Health Informa tion Online using Patient Portal and [employer] Apps Indication:BMI 34.0-34.9,adult Start:01-Mar-2021 Instruction Type:Patient Education Patient Instructions Indication:Non-smoker Start:31-Aug-2020 Instruction Type:Provider Instructions for Treatment How to Access Health Informa tion Online using Patient Portal and [employer] Apps Indication:Non-smoker Start:31-Aug-2020 Instruction Type:Patient Education How [...] tion Online using Patient Portal and [employer] Apps Indication:Non-smoker Start:06-Sep-2021 Instruction Type:Patient Education How to Access Health Informa tion Online using Patient Portal and [employer] Apps Indication:Sinusitis Start:22-Aug-2021 Instruction Type:Patient Education Patient Instructions Indication:Sinusitis Start:22-Aug-2021 Instruction Type:Provider Instructions for Treatment Patient Instructions get lab s Sep 01 fasting and follow up 4-7 days later Indication:Postmenopausal (Renamed from Postmenopausal status) Start:01-Mar-2021 Instruction Type:Provider Instructions for Treatment How to Access Health Informa tion Online using Patient Portal and [employer] Apps Indication:BMI 34.0-34.9,adult Start:01-Mar-2021 Instruction Type:Patient Education Patient Instructions Indication:Non-smoker Start:31-Aug-2020 Instruction Type:Provider Instructions for Treatment How to Access Health Informa tion Online using Patient Portal and [employer] Apps Indication:Non-smoker Start:31-Aug-2020 Instruction Type:Patient Education How [...] tion Online using Patient Portal and [employer] Apps Indication:Non-smoker Start:06-Sep-2021 Instruction Type:Patient Education How to Access Health Informa tion Online using Patient Portal and [employer] Apps Indication:Sinusitis Start:22-Aug-2021 Instruction Type:Patient Education Patient Instructions Indication:Sinusitis Start:22-Aug-2021 Instruction Type:Provider Instructions for Treatment Patient Instructions get lab s Sep 01 fasting and follow up 4-7 days later Indication:Postmenopausal (Renamed from Postmenopausal status) Start:01-Mar-2021 Instruction Type:Provider Instructions for Treatment How to Access Health Informa tion Online using Patient Portal and [employer] Apps Indication:BMI 34.0-34.9,adult Start:01-Mar-2021 Instruction Type:Patient Education Patient Instructions Indication:Non-smoker Start:31-Aug-2020 Instruction Type:Provider Instructions for Treatment How to Access Health Informa tion Online using Patient Portal and [employer] Apps Indication:Non-smoker Start:31-Aug-2020 Instruction Type:Patient Education How [...] tion Online using Patient Portal and [employer] Apps Indication:Exposure to 2018 novel coronavirus Start:08-Nov-2021 Instruction Type:Patient Education Patient Instructions Indication:Encounter for screening for malignant neoplasm of colon (Renamed from Special screening for malignant neoplasms, colon) Start:06-Sep-2021 Instruction Type:Provider Instructions for Treatment How to Access Health Informa tion Online using Patient Portal and [employer] Apps Indication:Non-smoker Start:06-Sep-2021 Instruction Type:Patient Education How to Access Health Informa tion Online using Patient Portal and [employer] Apps Indication:Sinusitis Start:22-Aug-2021 Instruction Type:Patient Education Patient Instructions Indication:Sinusitis Start:22-Aug-2021 Instruction Type:Provider Instructions for Treatment Patient Instructions get lab s Sep 01 fasting and follow up 4-7 days later Indication:Postmenopausal (Renamed from Postmenopausal status) Start:01-Mar-2021 Instruction Type:Provider Instructions for Treatment How to Access Health Informa tion Online using Patient Portal and [employer] Apps Indication:BMI 34.0-34.9,adult Start:01-Mar-2021 Instruction Type:Patient Education Patient Instructions Indication:Non-smoker Start:31-Aug-2020 Instruction Type:Provider Instructions for Treatment How to Access Health Informa tion Online using Patient Portal and [employer] Apps Indication:Non-smoker Start:31-Aug-2020 Instruction Type:Patient Education How [...] Informa tion Online using Patient Portal and [employer] Apps Indication:Exposure to 2019 novel coronavirus Start:08-Nov-2021 Instruction Type:Patient Education Patient Instructions Indication:Encounter for screening for malignant neoplasm of colon (Renamed from Special screening for malignant neoplasms, colon) Start:06-Sep-2021 Instruction Type:Provider Instructions for Treatment How to Access Health Informa tion Online using Patient Portal and [employer] Apps Indication:Non-smoker Start:06-Sep-2021 Instruction Type:Patient Education How to Access Health Informa tion Online using Patient Portal and [employer] Apps Indication:Sinusitis Start:22-Aug-2021 Instruction Type:Patient Education Patient Instructions Indication:Sinusitis Start:22-Aug-2021 Instruction Type:Provider Instructions for Treatment Patient Instructions get lab s Sep 01 fasting and follow up 4-7 days later Indication:Postmenopausal (Renamed from Postmenopausal status) Start:01-Mar-2021 Instruction Type:Provider Instructions for Treatment How to Access Health Informa tion Online using Patient Portal and [employer] Apps Indication:BMI 34.0-34.9,adult Start:01-Mar-2021 Instruction Type:Patient Education Patient Instructions Indication:Non-smoker Start:31-Aug-2020 Instruction Type:Provider Instructions for Treatment How to Access Health Informa tion Online using Patient Portal and [employer] Apps Indication:Non-smoker Start:31-Aug-2020 Instruction Type:Patient Education How [...] note No data available for this section [facility] Reason for referral (narrative)No [facility]: Family History No Family History Records FoundUnknown Family Member Name Dates Details brother (Renamed from Asthma ) Comments:Brother. asthma, pa cmaker. CAD at 60's Status:Active Diabetes Mellitus Type [...] Diabetes Mellitus Type II Comments:SisterAnusha heart janice se age late 20's of DM Status:Active First Degree Relatives Comments:paternal aunt breas t cancer, another paternal aunt with Type II diabetes Status:Active Mother Comments:HTN Status:Active Sister 2 Comments:type II diabetes Status:Active Unknown Family Member Name Dates Details brother (Renamed from Asthma ) Comments:Brother. magan dominguez. CAD at 60's Status:Active Diabetes Mellitus Type II Comments:SisterAnusha heart janice se age late 20's of [...] Diabetes Mellitus Type II Comments:SisterAnusha heart janice se age late 20's of [...] DM Status:Active First Degree Relatives Comments:paternal aunt brerandall t cancer, another paternal aunt with Type [...] tion Online using Patient Portal and [employer] Apps Indication:Non-smoker Start:31-Aug-2020 Instruction Type:Patient Education How [...] Records Found Name Dates Details Immunization Registry [place] - Effective on 09/27/2020. Expiration date unspecified Effective:27-Sep-2020 Name Dates Details Immunization Registry [place] - Effective on 09/27/2020. Expiration date unspecified Effective:27-Sep-2020 Name Dates Details Immunization Registry [place] - Effective on 09/27/2020. Expiration date unspecified Effective:27-Sep-2020 Name Dates Details Immunization Registry [place] - Effective on 09/27/2020. Expiration date unspecified Effective:27-Sep-2020 Name Dates Details Immunization Registry [place] - Effective on 09/27/2020. Expiration date unspecified Effective:27-Sep-2020 Name Dates Details Immunization Registry [place] - Effective on 09/27/2020. Expiration date unspecified [...] 1 :24pm GERD (gastroesophageal reflux disease) M arch 2024 1:24pm Helicobacter pylori gastritis September 16, [...] 55pm LABS December 18, 2024 8:10a m 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 Admit Date 3 M FU September 16, 2024 1:24 pm PAIN IN UPPER RIB CAGE November 27, 2024 1: 55pm LABS December 18, 2024 8:10a m CHEST PAIN, ABN EKG January 08, 2025 6:12 am CHEST PAIN, ABN EKG January 08, 2025 1:16 pm 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 Admit Date PAIN IN UPPER RIB CAGE November 27, 2024 1: 55pm LABS December 18, 2024 8:10a m CHEST PAIN, ABN EKG January 08, 2025 6:12 am CHEST PAIN, ABN EKG January 08, 2025 1:16 pm 4 M FU January 20, 2025 1:56p m Reason for Visit Admit Date Atypical chest pain November 27, 2024 1:55p m Essential hypertension November 27, 2024 1: 55pm GERD (gastroesophageal reflux disease) M ay 2024 1:55pm Helicobacter pylori gastritis November 27, 2024 1:55pm Reason for Visit Admit Date Atypical chest pain November 27, 2024 1:55p m Essential hypertension November 27, 2024 1: 55pm GERD (gastroesophageal reflux disease) M ay 2024 1:55pm Helicobacter pylori gastritis November 27, 2024 1:55pm Atypical chest pain January 20, 2025 1:56p m Essential hypertension January 20, 2025 1: 56pm Helicobacter pylori gastritis January 20, 2025 1:56pm Lumbar radiculopathy January 20, 2025 1:56 pm Osteoarthritis January 20, 2025 1:56p m 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 Admit Date PAIN IN UPPER RIB CAGE November 27, 2024 1: 55pm LABS December 18, 2024 8:10a m CHEST PAIN, ABN EKG January 08, 2025 6:12 am CHEST PAIN, ABN EKG January 08, 2025 1:16 pm 4 M FU January 20, 2025 1:56p m GASTRITIS February 01, 2025 1:54 pm Reason for Visit Admit Date Atypical chest pain November 27, 2024 1:55p m Essential hypertension November 27, 2024 1: 55pm GERD (gastroesophageal reflux disease) M 2024 1:55pm Helicobacter pylori gastritis November 27, 2024 1:55pm Atypical chest pain January 20, 2025 1:56p m Essential hypertension January 20, 2025 1: 56pm Helicobacter pylori gastritis January 20, 2025 1:56pm Lumbar radiculopathy January 20, 2025 1:56 pm Osteoarthritis January 20, 2025 1:56p m Epigastric abdominal pain February 01 1:54pm GERD (gastroesophageal reflux disease) [facility] 2024 1:54pm Helicobacter pylori gastritis February 01, 2025 1:54pm 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 Admit Date PAIN IN UPPER RIB CAGE November 27, 2024 1: 55pm LABS December 18, 2024 8:10a m CHEST PAIN, ABN EKG January 08, 2025 6:12 am CHEST PAIN, ABN EKG January 08, 2025 1:16 pm 4 M FU January 20, 2025 1:56p m GASTRITIS February 01, 2025 1:54 pm INT [facility] February 03, 2025 8:13 am 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 Admit Date LABS December 18, 2024 8:10a m CHEST PAIN, ABN EKG January 08, 2025 6:12 am CHEST PAIN, ABN EKG January 08, 2025 1:16 pm 4 M FU January 20, 2025 1:56p m GASTRITIS February 01, 2025 1:54 pm INT [facility] February 03, 2025 8:13 am Gastritis March 29, 2025 2:53pm Reason for Visit Admit Date Atypical chest pain January 20, 2025 1:56p m Essential hypertension January 20, 2025 1: 56pm Helicobacter pylori gastritis January 20, 2025 1:56pm Lumbar radiculopathy January 20, 2025 1:56 pm Osteoarthritis January 20, 2025 1:56p m Epigastric abdominal pain February 01 1:54pm GERD (gastroesophageal reflux disease) J brisa 2024 1:54pm Helicobacter pylori gastritis February 01, 2025 1:54pm Helicobacter pylori gastritis March 29, 2025 2:53pm Additional Source Comments INFORMATION SOURCE (unrecogn ized section and content) DATE CREATED AUTHOR 09/16/2018 [facility] DATE CREATED AUTHOR AUTHOR'S ORGANIZ ATION 01/15/2024 [facility] ([place] DATE CREATED AUTHOR AUTHOR'S ORGANIZ ATION 06/11/2024 [facility] DATE CREATED AUTHOR AUTHOR'S ORGANIZ ATION 05/24/2025 [facility] Care Teams (unrecognized sec tion and content) Team Status: Active Member Role Status Dates Mihaela Hui HAIR SALON MANAGER, HAIR SALON MANAGER-C Family Provider Active Dr. Bronson Bynum MD [...] 16, 2024 End: September 16, 2024 Dr. Bornson Bynum MD Attending Provider Active Start: September [...] December 18, 2024 End: December 18, 2024 Team Status: Active Member Role/Relationship Status Dates Dr. Bronson Bynum MD Primary Care Provider Active Team Status: Inactive Member Role/Relationship Status Dates Dr. Bronson Bynum MD Primary Care Provider Active Start: September 16, 2024 End: September 16, 2024 Dr. Bronson Bynum MD Attending Provider Active Start: September 16, 2024 End: September 16, 2024 Dr. Bronson Bynum MD Referring Provider Active Start: September 16, 2024 End: September 16, 2024 Team Status: Inactive Member Role/Relationship Status Dates Dr. Bronson Bynum MD Primary Care Provider Active Start: November 27, 2024 End: November 27, 2024 Dr. Bronson Bynum MD Attending Provider Active Start: November 27, 2024 End: November 27, 2024 Dr. Bronson Bynum MD Referring Provider Active Start: November 27, 2024 End: November 27, 2024 Team Status: Inactive Member Role/Relationship Status Dates Dr. Bronson Bynum MD Primary Care Provider Active Start: November 27, 2024 End: November 27, 2024 Dr. Bronson Bynum MD Attending Provider Active Start: November 27, 2024 End: November 27, 2024 Dr. Bronson Bynum MD Referring Provider Active Start: November 27, 2024 End: November 27, 2024 Team Status: Inactive Member Role/Relationship Status Dates Dr. Bronson Bynum MD Primary Care Provider Active Start: November 30, 2024 End: November 30, 2024 Dr. Bronson Bynum MD Attending Provider Active Start: November 30, 2024 End: November 30, 2024 Dr. Bronson Bynum MD Referring Provider Active Start: November 30, 2024 End: November 30, 2024 Team Status: Inactive Member Role/Relationship Status Dates Dr. Bronson Bynum MD Primary Care Provider Active Start: December 18, 2024 End: December 18, 2024 Dr. Tyler Johnson MD Attending Provider Active Start: December 18, 2024 End: December 18, 2024 Dr. Tyler Johnson MD Referring Provider Active Start: December 18, 2024 End: December 18, 2024 Team Status: Inactive Member Role/Relationship Status Dates Dr. Bronson Bynum MD Primary Care Provider Active Start: January 08, 2025 End: January 08, 2025 Dr. Bronson Bynum MD Attending Provider Active Start: January 08, 2025 End: January 08, 2025 Dr. Bronson Bynum MD Referring Provider Active Start: January 08, 2025 End: January 08, 2025 Team Status: Active Member Role/Relationship Status Dates Dr. Bronson Bynum MD Primary Care Provider Active Start: January 08, 2025 Dr. Bronson Bynum MD Referring Provider Active Start: January 08, 2025 Dr. Bronson Bynum MD Other Provider Active Start: January 08, 2025 Dr. Francesco Falk MD Attending Provider Active Start: January 08, 2025 Team Status: Inactive Member Role/Relationship Status Dates Dr. Bronson Bynum MD Primary Care Provider Active Start: November 27, 2024 End: November 27, 2024 Dr. Bronson Bynum MD Attending Provider Active Start: November 27, 2024 End: November 27, 2024 Dr. Bronson Bynum MD Referring Provider Active Start: November 27, 2024 End: November 27, 2024 Team Status: Inactive Member Role/Relationship Status Dates Dr. Bronson Bynum MD Primary Care Provider Active Start: November 30, 2024 End: November 30, 2024 Dr. Bronson Bynum MD Attending Provider Active Start: November 30, 2024 End: November 30, 2024 Dr. Bronson Bynum MD Referring Provider Active Start: November 30, 2024 End: November 30, 2024 Team Status: Inactive Member Role/Relationship Status Dates Dr. Bronson Bynum MD Primary Care Provider Active Start: December 18, 2024 End: December 18, 2024 Dr. Tyler Johnson MD Attending Provider Active Start: December 18, 2024 End: December 18, 2024 Dr. Tyler Johnson MD Referring Provider Active Start: December 18, 2024 End: December 18, 2024 Team Status: Inactive Member Role/Relationship Status Dates Dr. Bronson Bynum MD Primary Care Provider Active Start: January 08, 2025 End: January 08, 2025 Dr. Bronson Bynum MD Attending Provider Active Start: January 08, 2025 End: January 08, 2025 Dr. Bronson Bynum MD Referring Provider Active Start: January 08, 2025 End: January 08, 2025 Team Status: Active Member Role/Relationship Status Dates Dr. Bronson Bynum MD Primary Care Provider Active Start: January 08, 2025 Dr. Bronson Bynum MD Referring Provider Active Start: January 08, 2025 Dr. Bronson Bynum MD Other Provider Active Start: January 08, 2025 Dr. Francesco Falk MD Attending Provider Active Start: January 08, 2025 Team Status: Inactive Member Role/Relationship Status Dates Dr. Bronson Bynum MD Primary Care Provider Active Start: January 20, 2025 End: January 20, 2025 Dr. Bronson Bynum MD Attending Provider Active Start: January 20, 2025 End: January 20, 2025 Dr. Bronson Bynum MD Referring Provider Active Start: January 20, 2025 End: January 20, 2025 Team Status: Active Member Role/Relationship Status Dates Dr. Bronson Bynum MD Primary Care Provider Active Start: January 20, 2025 Dr. Bronson Bynum MD Attending Provider Active Start: January 20, 2025 Dr. Bronson Bynum MD Referring Provider Active Start: January 20, 2025 Team Status: Inactive Member Role/Relationship Status Dates Dr. Bronson Bynum MD Primary Care Provider Active Start: January 20, 2025 End: January 20, 2025 Dr. Bronson Bynum MD Attending Provider Active Start: January 20, 2025 End: January 20, 2025 Dr. Bronson Bynum MD Referring Provider Active Start: January 20, 2025 End: January 20, 2025 Team Status: Inactive Member Role/Relationship Status Dates Dr. Bronson Bynum MD Primary Care Provider Active Start: February 01, 2025 End: February 01, 2025 Dr. Bronson Bynum MD Referring Provider Active Start: February 01, 2025 End: February 01, 2025 KARO Guadalupe Attending Provider Active S tart: February 01, 2025 End: February 01, 2025 Team Status: Inactive Member Role/Relationship Status Dates Dr. Bronson Bynum MD Primary Care Provider Active Start: February 03, 2025 End: February 03, 2025 KARO Guadalupe Attending Provider Active S tart: February 03, 2025 End: February 03, 2025 KARO Guadalupe Referring Provider Active S tart: February 03, 2025 End: February 03, 2025 Team Status: Inactive Member Role/Relationship Status Dates Dr. Bronson Bynum MD Primary Care Provider Active Start: November 30, 2024 End: November 30, 2024 Dr. Bronson Bynum MD Attending Provider Active Start: November 30, 2024 End: November 30, 2024 Dr. Bronson Bynum MD Referring Provider Active Start: November 30, 2024 End: November 30, 2024 Team Status: Inactive Member Role/Relationship Status Dates Dr. Bronson Bynum MD Primary Care Provider Active Start: December 18, 2024 End: December 18, 2024 Dr. Tyler Johnson MD Attending Provider Active Start: December 18, 2024 End: December 18, 2024 Dr. Tyler Johnson MD Referring Provider Active Start: December 18, 2024 End: December 18, 2024 Team Status: Inactive Member Role/Relationship Status Dates Dr. Bronson Bynum MD Primary Care Provider Active Start: January 08, 2025 End: January 08, 2025 Dr. Bronson Bynum MD Attending Provider Active Start: January 08, 2025 End: January 08, 2025 Dr. Bronson Bynum MD Referring Provider Active Start: January 08, 2025 End: January 08, 2025 Team Status: Active Member Role/Relationship Status Dates Dr. Bronson Bynum MD Primary Care Provider Active Start: January 08, 2025 Dr. Bronson Bynum MD Referring Provider Active Start: January 08, 2025 Dr. Bronson Bynum MD Other Provider Active Start: January 08, 2025 Dr. Francesco Falk MD Attending Provider Active Start: January 08, 2025 Team Status: Inactive Member Role/Relationship Status Dates Dr. Bronson Bynum MD Primary Care Provider Active Start: January 20, 2025 End: January 20, 2025 Dr. Bronson Bynum MD Attending Provider Active Start: January 20, 2025 End: January 20, 2025 Dr. Bronson Bynum MD Referring Provider Active Start: January 20, 2025 End: January 20, 2025 Team Status: Inactive Member Role/Relationship Status Dates Dr. Bronson Bynum MD Primary Care Provider Active Start: January 20, 2025 End: January 20, 2025 Dr. Bronson Bynum MD Attending Provider Active Start: January 20, 2025 End: January 20, 2025 Dr. Bronson Bynum MD Referring Provider Active Start: January 20, 2025 End: January 20, 2025 Team Status: Inactive Member Role/Relationship Status Dates Dr. Bronson Bynum MD Primary Care Provider Active Start: February 01, 2025 End: February 01, 2025 Dr. Bronson Bynum MD Referring Provider Active Start: February 01, 2025 End: February 01, 2025 KARO Guadalupe Attending Provider Active S tart: February 01, 2025 End: February 01, 2025 Team Status: Inactive Member Role/Relationship Status Dates Dr. Bronson Bynum MD Primary Care Provider Active Start: February 03, 2025 End: February 03, 2025 KARO Guadalupe Attending Provider Active S tart: February 03, 2025 End: February 03, 2025 KARO Guadalupe Referring Provider Active S tart: February 03, 2025 End: February 03, 2025 Team Status: Inactive Member Role/Relationship Status Dates Dr. Bronson Bynum MD Primary Care Provider Active Start: March 29, 2025 End: March 29, 2025 Dr. Bronson Bynum MD Referring Provider Active Start: March 29, 2025 End: March 29, 2025 KAOR Chua Attending Provider Active Start: March 29, 2025 End: March 29, 2025 Goals (unrecognized section and content) Goals may [...] BE BASED ON THE PRIMARY CLINICAL RECORDS. [email or web address] provides no warranty or guarantee of the accuracy or completeness of information in this document.
--- NOTE | 2025-06-11 12:45 | BI_ITS ---
EXAM: Digital screening mammogram with CAD and mich. DATE: 06/11/2025 CLINICAL HISTORY: F, Age 79 y/o , BREAST CANCER SCREENING TECHNIQUE: Procedure Code: [id number] Modality: MG Procedure: SCRN MAMM (CAD)W/MICH BILAT COMPARISON: Prior exam(s) dated 06/03/2024, 05/20/2023, and 05/17/2022. FINDINGS: TISSUE DENSITY: The breasts are heterogeneously dense, which may obscure small masses. Bilateral Breast Mammographic Findings: No suspicious masses, suspicious clustered microcalcifications, architectural distortion or secondary sign of malignancy is identified in either breast. Benign-appearing round microcalcifications are seen in both breasts. BI/SCRN MAMM (CAD)W/MICH BILAT IMPRESSION: Benign screening mammogram OVERALL FINAL ASSESSMENT BI-RADS 2: BENIGN RECOMMENDATION: Routine annual follow-up in 1 Year Additional Recommendation none A letter with findings and recommendations will be mailed to the patient. Reading Location: [id number]
== END | disposition home or self-care (01) ==
LOC: OPBI 12:35
PROVIDERS: PCP Internal Medicine; Referring Provider Internal Medicine; Visit Provider Internal Medicine
DX: Z12.31 Encounter for screening mammogram for malignant neoplasm of breast (principal)
CPT/HCPCS: 77063; 77067